=== PATIENT | male | born 1955 | race Caucasian/White ===

== ENCOUNTER 2018-04-20 12:45 | Observation (INO) | payer OTHER ==
--- OUTSIDE RECORDS SUMMARY | 2018-04-20 12:47 | XMS REPORT | Continuity of Care Document ---
:1955 Author Organization Interface Problems Problem Status Onset Date Classification Date Comments Source Reported Medications Medication Details Route Status Patient Ordering Order Source Instructions Provider Date Allergies, Adverse Reactions, Alerts Substance Category Reaction Severity Reaction Status Date Comments Source type Reported Immunizations Immunization Date Given Site Status Last Updated Comments Source Results Order Results Value Reference Date Interpretation Comments Source Name Range Vital Signs Vital Sign Value Date Comments Source Encounters Location Location Encounter Encounter Reason Attending ADM DC Status Source Details Type Number For Provider Date Date Visit Outpatient [id number] [place] 03[place]20 [facility] [place] Outpatient [id number] [place] 03[place]19 [facility] [place] Procedures Procedure Code Date Perfomer Comments Source
--- OUTSIDE RECORDS SUMMARY | 2018-04-20 12:47 | XMS REPORT ---
:1955 Author Organization eClinicalWorks Care Team Providers Name Role Phone Alford, Na Provider Role Unavailable Allergies, Adverse Reactions, Alerts Substance Reaction Event Type N.K.D.A. 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 Active Assessment Hypertension I10 Active Problem Hypertension I10 Active Problem Obesity E66.9 Active Problem Allergic rhinitis J30.9 Active Problem Obstructive sleep apnea G47.33 Active Problem Erectile dysfunction, unspecified N52.9 Active erectile dysfunction type Problem Anxiety F41.9 Active Problem Headache R51 Active Assessment Erectile dysfunction, unspecified N52.9 Active erectile dysfunction type Assessment Chest discomfort R07.89 Active Assessment Anxiety F41.9 Active Assessment Allergic rhinitis J30.9 Active Medications Medication Code Code Instructions Start End Status Dosage System Date Date Flomax [facility] [address]-95 0.4 MG Orally Active 1 capsule 30 Once a day minutes after the same meal each day Fluticasone [facility] 25809812664 50 MCG/ACT Active 1 spray in Propionate Nasally Once a each nostril day Cyclobenzaprine ND 97625463216 10 MG Orally Active 1 tablet as HCl Three times a needed day Triamcinolone ND 31349372140 0.5 % Active 1 application Acetonide Externally to affected Twice a day area Singulair ND 88050644918 10 MG Active TAKE 1 TABLET BY MOUTH EVERY DAY Claritin ND 07032175826 10 MG Orally Active 1 tablet Once a day Propranolol HCl ND 37505444486 40 MG Active TAKE 1 TABLET BY MOUTH TWICE A DAY Tylenol # 3 NDC 0 30-500-15 MG Active 2 tablets as Orally every 6 needed hrs Results No Known Results Summary Purpose eClinicalWorks Submission
--- OUTSIDE RECORDS SUMMARY | 2018-04-20 12:47 | XMS REPORT ---
:1955 Author Organization eClinicalWorks Care Team Providers Name Role Phone Alford, Na Provider Role Unavailable Allergies, Adverse Reactions, Alerts Substance Reaction Event Type N.K.D.A. 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 Active Problem Hypertension I10 Active Problem Obesity E66.9 Active Problem Allergic rhinitis J30.9 Active Problem Obstructive sleep apnea G47.33 Active Problem Erectile dysfunction, unspecified N52.9 Active erectile dysfunction type Problem Anxiety F41.9 Active Problem Headache R51 Active Assessment Erectile dysfunction, unspecified N52.9 Active erectile dysfunction type Assessment Anxiety F41.9 Active Assessment Allergic rhinitis J30.9 Active Assessment Hypertension I10 Active Medications Medication Code Code Instructions Start End Status Dosage System Date Date Claritin [facility] [place] 27039275956 10 MG Orally Active 1 tablet Once a day Cyclobenzaprine ND 73063933856 10 MG Orally Active 1 tablet as HCl Three times a needed day Singulair [facility] [place] 48826675402 10 MG Active TAKE 1 TABLET BY MOUTH EVERY DAY Fluticasone [facility] [place] 31818595445 50 MCG/ACT Active 1 spray in Propionate Nasally Once a each nostril day Flomax ND 44566738465 0.4 MG Orally Active 1 capsule 30 Once a day minutes after the same meal each day Propranolol HCl ND 51599250496 40 MG Active TAKE 1 TABLET BY MOUTH TWICE A DAY Tylenol # 3 NDC 0 30-500-15 MG Active 2 tablets as Orally every 6 needed hrs Triamcinolone ND 91458107227 0.5 % Active 1 application Acetonide Externally to affected Twice a day area Results No Known Results Summary Purpose eClinicalWorks Submission
--- OUTSIDE RECORDS SUMMARY | 2018-04-20 12:47 | XMS REPORT ---
:1955 Author Organization eClinicalWorks Care Team Providers Name Role Phone Alford, Na Provider Role Unavailable Allergies No Known Allergies Problems Problem Type Condition Code Onset Dates Condition Status Problem COPD, mild J44.9 Active Problem Hypertension I10 Active Problem Obesity E66.9 Active Problem Allergic rhinitis J30.9 Active Problem Obstructive sleep apnea G47.33 Active Problem Erectile dysfunction, unspecified N52.9 Active erectile dysfunction type Problem Anxiety F41.9 Active Problem Headache R51 Active Medications Medication Code Code Instructions Start End Status Dosage System Date Date Propranolol HCl [facility] 31739987767 40 MG Orally Active TAKE 1 twice a day TABLET BY MOUTH TWICE A DAY Results No Known Results Summary Purpose eClinicalWorks Submission
--- NOTE | 2018-04-20 14:00 | EKG ---
Test Date: 2018-04-20 Test Time: 12:51:59 Customer Support Technician: KANA MEASUREMENT RESULTS: Intervals: Rate: 86 RI: 152 QRSD: 90 QT: 364 QTc: 435 Pollock: P: 40 RI: 152 QRS: 32 T: 47 INTERPRETIVE STATEMENTS: Normal sinus rhythm Normal ECG Compared to ECG 08/01/2017 21:53:38 No significant changes Electronically Signed On 04-20-18 13:59:56 SENIOR ACCOUNT MANAGER by Wilfred Stovall
--- NOTE | 2018-04-20 14:08 | RAD REPORT ---
EXAM DESCRIPTION: May Single View04/20/2018 2:02 pm CLINICAL HISTORY: Chest pain COMPARISON: July 2017 FINDINGS: The lungs appear clear of acute infiltrate. The heart is normal size IMPRESSION: No acute abnormalities displayed
[2018-04-20 14:15] LABS: Absolute Lymphocytes (CBC) 1.1 K/uL (0.7-4.9); Absolute Monocytes 1.1 K/uL (0.1-1.3); Absolute Neutrophil 10.3 K/uL (1.8-8.0); Basophils % 0.5 % (0-1.3); Hematocrit 43.7 % (39.6-49.0); Lymphocytes % 8.6 % (15.3-44.8); MCH 32.8 pg (27.0-35.0); MCV 95.4 fL (80-100); MPV 8.7 fL (7.6-11.3); Monocytes % 8.8 % (3.3-12.3); RBC Red Blood Cell Count 4.58 M/uL (4.33-5.43)
[2018-04-20 14:24] LABS: Protime INR 1.16
[2018-04-20 14:40] LABS: ALT/SGPT 39 U/L (12-78); AST/SGOT 22 U/L (15-37); Albumin 3.8 g/dL (3.4-5.0); Alkaline Phosphatase 111 U/L (45-117); BUN Blood Urea Nitrogen 16 mg/dL (7-18); Bicarbonate 22 mmol/L (21-32); Bilirubin Total 0.7 mg/dL (0.2-1.0); Glucose Level 102 mg/dL (74-106); Magnesium 2.2 mg/dL (1.8-2.4); NT PRO-BNP 108 pg/mL (<125); Protein, Total 7.6 g/dL (6.4-8.2); Sodium Level 142 mmol/L (136-145); Troponin (Emerg Dept Use Only) < 0.02 ng/mL (0.0-0.045)
[2018-04-20] MEDS ORDERED: METOCLOPRAMIDE 10 MG/2mL INJ ONE (14:45)
[2018-04-20] MEDS ORDERED: DIPHENHYDRAMINE 50 MG/ML VIAL ONE (14:46)
[2018-04-20 16:52] LABS: Urine Blood NEGATIVE (NEG); Urine Glucose NEGATIVE (NEG); Urine Protein NEGATIVE (NEG); Urine pH 5.5 (5.0-7.0)
--- NOTE | 2018-04-20 17:05 | ER ---
Nurse's Notes [facility] Name: Winston Garcia Age: 62 yrs Sex: Male : 1955 Arrival Date: 04/20/2018 Time: 12:45 Bed 14 Private MD: Sanjana Alford Diagnosis: Chest pain, unspecified Presentation: 04/20 12:57 Presenting complaint: Patient states: headaches, shortness of breath and fatigue that ss began yesterday, CP that began today. Denies fever. Transition of care: patient was not received from another setting of care. Onset of symptoms was April 19, 2018. Risk Assessment: Do you want to hurt yourself or someone else? Patient reports no desire to harm self or others. Initial Sepsis Screen: Does the patient meet any 2 criteria? RR > 20 per min. Does the patient have a suspected source of infection? No. Patient's initial sepsis screen is negative. Care prior to arrival: None. 12:57 Method Of Arrival: Ambulatory ss 12:57 Acuity: LOBITO 3 ss Historical: - Allergies: 13:00 No Known Allergies; ss - PMHx: 13:00 Hypertension; brain aneurysm; ss - PSHx: 13:00 cyst removed from top of head; BRAIN SX FOR ANEURYSM; back; ss - Immunization history:: Adult Immunizations up to date. - Social history:: Smoking status: Patient/guardian denies using tobacco, but has a distant history of tobacco abuse. - Ebola Screening: : Patient denies exposure to infectious person Patient denies travel to an Ebola-affected area in the 21 days before illness onset. Screenin:11 Abuse screen: Denies threats or abuse. Denies injuries from another. Nutritional sg screening: No deficits noted. Tuberculosis screening: Never had TB. Fall Risk None identified. Assessment: 13:08 Reassessment: Patient appears in no apparent distress at this time. General: Appears in sg no apparent distress. obese, unkempt, well developed, well nourished, Behavior is calm, cooperative, appropriate for age. Pain: Complains of pain in chest Pain currently is 6 out of 10 on a pain scale. at worst was 10 out of 10 on a pain scale. Neuro: Level of Consciousness is awake, alert, obeys commands, Oriented to person, place, time, situation, Rad Tech are equal bilaterally Speech is normal, Facial symmetry appears normal. Cardiovascular: Chest pain is described as vague, quality is pressure, is located in anterior chest wall. Respiratory: Airway is patent Respiratory effort is even, unlabored, Respiratory pattern is regular, symmetrical, Breath sounds are coarse. Respiratory: Reports cough that is. GI: Abdomen is round non-distended, obese, Bowel sounds present X 4 quads. : No signs and/or symptoms were reported regarding the genitourinary system. EENT: No deficits noted. Derm: Skin is pink, warm \T\ dry. Musculoskeletal: No signs and/or symptoms reported regarding the musculoskeletal system. 14:08 Reassessment: Patient appears in no apparent distress at this time. Patient and/or sg family updated on plan of care and expected duration. Pain level reassessed. Patient is alert, oriented x 3, equal unlabored respirations, skin warm/dry/pink. pt reports a headache at this time, that is aching and a 6/10. 14:45 Reassessment: Patient appears in no apparent distress at this time. Patient and/or sg family updated on plan of care and expected duration. Pain level reassessed. Patient is alert, oriented x 3, equal unlabored respirations, skin warm/dry/pink. 15:40 Reassessment: pt educated that a urine specimen has been ordered, a urinal has been ss provided, awaiting a urine specimen at this time. 16:40 Reassessment: Patient appears in no apparent distress at this time. Patient and/or sg family updated on plan of care and expected duration. Pain level reassessed. Patient is alert, oriented x 3, equal unlabored respirations, skin warm/dry/pink. reports CP that is a 6/10 notified. 17:29 Reassessment: Patient appears in no apparent distress at this time. Patient and/or sg family updated on plan of care and expected duration. Pain level reassessed. Patient is alert, oriented x 3, equal unlabored respirations, skin warm/dry/pink. Patient states symptoms have improved. Vital Signs: 13:00 BP 132 / 87; Pulse 88; Resp 23; Pulse Ox 96% on R/A; Weight 140.61 kg; Height 6 ft. 3 ss in. (190.50 cm); Pain 3/10; 13:00 Temp 98.8(O); ss 14:00 BP 130 / 77; Pulse 78; Resp 22 S; Pulse Ox 99% on R/A; Pain 3/10; sg 15:11 BP 123 / 72; Pulse 76 MON; Resp 20; Pulse Ox 97% on R/A; Pain 3/10; sg 16:24 BP 119 / 77; Pulse 72; Resp 22; Pulse Ox 100% on R/A; sg 17:42 BP 106 / 54; Pulse 80; Resp 21; Temp 98.6; Pulse Ox 98% on R/A; Pain 3/10; sg 13:00 Body Mass Index 38.75 (140.61 kg, 190.50 cm) ss 15:11 Sinus Rhythm sg ED Course: 12:45 Patient arrived in ED. as 12:46 Sanjana Alford MD is Private Physician. as 12:54 EKG done, by kennel technician. reviewed by Kaiser Dorado MD. at1 12:55 Kaiser Dorado MD is Attending Physician. ps1 13:00 Triage completed. ss 13:00 Arm band placed on right wrist. ss 13:07 Bronson White, RN is Primary Nurse. sg 13:08 No provider procedures requiring assistance completed. Patient maintains SpO2 sg saturation greater than 95% on room air. 13:10 Patient has correct armband on for positive identification. Bed in low position. Call sg light in reach. Side rails up X2. phototypesetting equipment monitor on. Pulse ox on. NIBP on. Warm blanket given. Head of bed elevated. 14:02 X-ray completed. Portable x-ray completed in exam room. Patient tolerated procedure jb2 well. 14:03 XRAY Chest (1 view) In Process Unspecified. EDMS 17:04 Joceline Hyman MD is Hospitalizing Provider. ps1 18:03 Patient admitted, IV remains in place. intact, No redness/swelling at site. ss Administered Medications: 14:45 Drug: Reglan 10 mg Route: IVP; Site: right antecubital; sg 15:40 Follow up: Response: No adverse reaction sg 14:45 Drug: Benadryl 50 mg Route: IVP; Site: right antecubital; sg 17:21 Follow up: Response: No adverse reaction sg Outcome: 17:04 Decision to Hospitalize by Provider. ps1 18:03 Admitted to Tele accompanied by tech, via stretcher, room 207, with chart, Report sg called to Dakota Roa 18:03 Condition: stable 18:03 Instructed on the need for admit, safety practices, Demonstrated understanding of instructions. 18:15 Patient left the ED. sg Signatures: Dispatcher [employer] EDBronson Emanuel RN RN Bryon Curtis Amelia as Smirch, Shelby, RN RN Fabienne Roberts, cap parts cutter EKG Tat1 Kaiser Dorado MD MD ps1 Corrections: (The following items were deleted from the chart) 14:30 13:10 Pulse Ox 98.8%; anum
--- NOTE | 2018-04-20 17:05 | EDPHYS ---
Physician Documentation [facility] Name: Winston Garcia Age: 62 yrs Sex: Male : 1955 Arrival Date: 04/20/2018 Time: 12:45 Bed 14 Private MD: Sanjana Alford ED Physician Kaiser Dorado HPI: 04/20 14:27 This 62 yrs old Male presents to ER via Ambulatory with complaints of Chest ps1 Pain. 14:27 patient presenting with flu like symptoms and chest pain. Onset was yesterday and worse ps1 this morning. Associated with headache described as throbbing. Has a history of migraines as well as an aneurysm. Had CT angio a couple of weeks ago and was normal. No FND. Previous cardiac workup by lolita Stovall. . Historical: - Allergies: 13:00 No Known Allergies; ss - PMHx: 13:00 Hypertension; brain aneurysm; ss - PSHx: 13:00 cyst removed from top of head; BRAIN SX FOR ANEURYSM; back; ss - Immunization history:: Adult Immunizations up to date. - Social history:: Smoking status: Patient/guardian denies using tobacco, but has a distant history of tobacco abuse. - Ebola Screening: : Patient denies exposure to infectious person Patient denies travel to an Ebola-affected area in the 21 days before illness onset. ROS: 14:27 Eyes: Negative for injury, pain, redness, and discharge, ENT: Negative for injury, ps1 pain, and discharge, Respiratory: Negative for shortness of breath, cough, wheezing, and pleuritic chest pain, Abdomen/GI: Negative for abdominal pain, nausea, vomiting, diarrhea, and constipation, MS/Extremity: Negative for injury and deformity, Skin: Negative for injury, rash, and discoloration. 14:27 Constitutional: Positive for body aches, chills, fatigue. 14:27 Cardiovascular: Positive for chest pain. 14:27 Neuro: Positive for headache. Exam: 14:27 Constitutional: This is a well developed, well nourished patient who is awake, alert, ps1 and in no acute distress. Head/Face: Normocephalic, atraumatic. Eyes: Pupils equal round and reactive to light, extra-ocular motions intact. Lids and lashes normal. Conjunctiva and sclera are non-icteric and not injected. Chest/axilla: Normal chest wall appearance and motion. Nontender with no deformity. No lesions are appreciated. Cardiovascular: Regular rate and rhythm. No gallops, murmurs, or rubs. Normal PMI, no JVD. No pulse deficits. Respiratory: Lungs have equal breath sounds bilaterally, clear to auscultation and percussion. No rales, rhonchi or wheezes noted. No increased work of breathing, no retractions or nasal flaring. Abdomen/GI: Soft, non-tender, with normal bowel sounds. No distension or tympany. No guarding or rebound. No evidence of tenderness throughout. MS/ Extremity: Pulses equal, no cyanosis. Neurovascular intact. Full, normal range of motion. Neuro: Awake and alert, GCS 15, oriented to person, place, time, and situation. Cranial nerves II-XII grossly intact. Sensory grossly intact. Vital Signs: 13:00 BP 132 / 87; Pulse 88; Resp 23; Pulse Ox 96% on R/A; Weight 140.61 kg; Height 6 ft. 3 ss in. (190.50 cm); Pain 3/10; 13:00 Temp 98.8(O); ss 14:00 BP 130 / 77; Pulse 78; Resp 22 S; Pulse Ox 99% on R/A; Pain 3/10; sg 15:11 BP 123 / 72; Pulse 76 MON; Resp 20; Pulse Ox 97% on R/A; Pain 3/10; sg 16:24 BP 119 / 77; Pulse 72; Resp 22; Pulse Ox 100% on R/A; sg 17:42 BP 106 / 54; Pulse 80; Resp 21; Temp 98.6; Pulse Ox 98% on R/A; Pain 3/10; sg 13:00 Body Mass Index 38.75 (140.61 kg, 190.50 cm) ss 15:11 Sinus Rhythm sg MDM: 13:53 Patient medically screened. ps1 04/21 17:05 Data reviewed: vital signs, nurses notes, lab test result(s), and as a result, I will ps1 admit patient. 04/20 13:39 Order name: CBC with Diff; Complete Time: 14:25 ps1 04/20 13:39 Order name: Magnesium; Complete Time: 14:45 ps1 04/20 13:39 Order name: NT PRO-BNP; Complete Time: 14:45 ps1 04/20 13:39 Order name: PT-INR; Complete Time: 14:45 ps1 04/20 13:39 Order name: Troponin (emerg Dept Use Only); Complete Time: 14:45 ps1 04/20 13:39 Order name: CMP; Complete Time: 14:45 ps1 04/20 12:57 Order name: EKG; Complete Time: 12:57 ss 04/20 12:57 Order name: EKG - Nurse/Tech; Complete Time: 12:57 ss 04/20 13:39 Order name: XRAY Chest (1 view); Complete Time: 14:14 ps1 04/20 13:39 Order name: Flu; Complete Time: 14:45 ps1 04/20 16:48 Order name: Urine Dipstick--Ancillary (enter results); Complete Time: 16:53 04/20 17:28 Order name: Diet Heart Healthy; Complete Time: 17:28 sg 04/20 13:39 Order name: Cardiac monitoring; Complete Time: 13:40 ps1 04/20 13:39 Order name: IV Saline Lock; Complete Time: 13:40 [facility] 04/20 13:39 Order name: Labs collected and sent; Complete Time: 13:40 ps1 04/20 13:39 Order name: O2 Per Protocol; Complete Time: 13:40 ps1 04/20 13:39 Order name: O2 Sat Monitoring; Complete Time: 13:40 [facility] 04/20 15:24 Order name: Urine Dipstick-Ancillary (obtain specimen); Complete Time: 17:21 ps1 Administered Medications: 04/20 14:45 Drug: Reglan 10 mg Route: IVP; Site: right antecubital; sg 15:40 Follow up: Response: No adverse reaction sg 14:45 Drug: Benadryl 50 mg Route: IVP; Site: right antecubital; sg 17:21 Follow up: Response: No adverse reaction sg Disposition: 04/20/18 17:04 Hospitalization ordered by Joceline Hyman for Observation. Preliminary diagnosis is Chest pain, unspecified. - Bed requested for Telemetry/MedSurg (observation). - Status is Observation. sg - Condition is Stable. - Problem is new. - Symptoms are unchanged. UTI on Admission? No Signatures: Dispatcher [employer] Manuela Perez RN RN dw Gay, Steven, RN RN sg Smirch, Shelby, RN RN ss Kaiser Dorado MD MD ps1 Corrections: (The following items were deleted from the chart) 17:48 17:04 Hospitalization Ordered by Joceline Hyman MD for Observation. Preliminary dw diagnosis is Chest pain, unspecified. Bed requested for Telemetry/MedSurg (observation). Status is Observation. Condition is Stable. Problem is new. Symptoms are unchanged. UTI on Admission? No. ps1 18:15 17:48 04/20/2018 17:04 Hospitalization Ordered by Joceline Hyman MD for Observation. sg Preliminary diagnosis is Chest pain, unspecified. Bed requested for Telemetry/MedSurg (observation). Status is Observation. Condition is Stable. Problem is new. Symptoms are unchanged. UTI on Admission? No. dw
[2018-04-20] MEDS ORDERED: HYDROCODONE/APAP 7.5/325 MG TAB ONE (18:31)
[2018-04-20] MEDS ORDERED: ONDANSETRON 4 MG (ODT) TAB PO PRN (18:36)
[2018-04-20] MEDS: ACETAMINOPHEN 500 MG TAB PO PRN (18:53)
[2018-04-20] MEDS: NA CHLORIDE 0.9% 1,000 ML IV SCH (18:54)
[2018-04-20 18:55] VITALS: BMI 38.0
--- NOTE | 2018-04-20 19:55 | P.HP ---
Certification for Inpatient Patient admitted to: Observation With expected LOS: <2 Midnights Practitioner: I am a practitioner with admitting privileges, knowledge of patient current condition, hospital course, and medical plan of care. Services: Services provided to patient in accordance with Admission requirements found in Title 42 Section 412.3 of the Code of Federal Regulations Patient History Date of Service: 04/20/18 Reason for admission: Flu-like symptoms History of Present Illness: Mr. Garcia is a 62-year-old male with history of brain aneurysm, hypertension, obesity, who start yesterday with fatigue, headache, shortness of breath. He was also complaining of chest pain, on and off, getting worse with movement. He denied any fever, nausea, vomiting or diarrhea. He feels stuffy nose and sore throat but has not had cough. Chest-x-ray is unremarkable, lab work shows leukocytosis 12.7 K, influenza screen is negative. At arrival the patient was afebrile, however during his stay in the hospital his temp rise to 101.1 F. Allergies No Known Drug Allergies Allergy (Verified 05/15/15 12:37) Unknown No Allergy (Uncoded 08/02/17 01:47) Unknown Home medications list reviewed: Yes Home Medications: Propranolol [Inderal*] 40 mg PO BID 05/15/15 Esomeprazole Magnesium 40 mg PO [id number] 08/02/17 Montelukast Sodium 10 mg PO DAILY 08/02/17 Tamsulosin HCl 0.4 mg PO DAILY 08/02/17 Topiramate 50 mg PO BID 6AM 6PM 08/02/17 Albuterol Sulfate [Proair Hfa] 8.5 gm IH Q6HR #1 [email or web address].[email or web address] 08/04/17 - Past Medical/Surgical History Diabetic: No -: HTN -: BRAIN ANUERYSMS -: CYST REMOVED FROM TOP OF HEAD -: BRAIN SURGERY FOR ANEURYSMS - Family History Mother -: Cancer Notes: BREAST CANCER - Social History Smoking Status: Former smoker Alcohol use: Yes CD- Drugs: No Caffeine use: Yes Place of Residence: Home Review of Systems 10-point ROS is otherwise unremarkable Physical Examination - Vital Signs Temperature: 101.1 F Blood Pressure: 126/76 Pulse: 98 Respirations: 20 Pulse Ox (%): 97 - Physical Exam General: Alert, In no apparent distress HEENT: Atraumatic, PERRLA, Other (Mucouse membrane erythematous), EOMI, Sclerae nonicteric Neck: Supple, 2+ carotid pulse no bruit, No LAD, Without JVD or thyroid abnormality Respiratory: Clear to auscultation bilaterally, Normal air movement Cardiovascular: Regular rate/rhythm, Normal S1 S2 Gastrointestinal: Normal bowel sounds, No tenderness Musculoskeletal: No tenderness Integumentary: No rashes Neurological: Normal speech, Normal strength at 5/5 x4 extr, Normal tone, Normal affect Lymphatics: No axilla or inguinal lymphadenopathy - Studies Laboratory Data (last 24 hrs) 04/20/18 13:40: PT 13.7 H, INR 1.16 04/20/18 13:40: Sodium 142, Potassium 4.0, BUN 16, Creatinine 1.30, Glucose 102 , Magnesium 2.2, Total Bilirubin 0.7, AST 22, ALT 39, Alkaline Phosphatase 111 04/20/18 13:40: WBC 12.7 H, Hgb 15.0, Hct 43.7, Plt Count 230 Microbiology Data (last 24 hrs): 04/20/18 13:40 Nasopharnyx Influenza Type A Antigen Screen - Final 04/20/18 13:40 Nasopharnyx Influenza Type B Antigen Screen - Final Assessment and Plan - Problems (Diagnosis) (1) Headache Current Visit: Yes Status: Acute Qualifiers: Headache type: unspecified Headache chronicity pattern: acute headache Intractability: not intractable Qualified Code(s): R51 - Headache (2) Upper respiratory infection Current Visit: Yes Status: Acute Qualifiers: URI type: unspecified viral URI Qualified Code(s): J06.9 - Acute upper respiratory infection, unspecified (3) Chest pain Onset Date: 08/04/17 Current Visit: No Status: Acute Qualifiers: Chest pain type: chest pain on breathing Qualified Code(s): R07.1 - Chest pain on breathing; R07.81 - Pleurodynia - Plan The patient will be admitted to the hospital due to flu-like symptoms and chest pain. This may be due to an upper respiratory infection. Chest-x-ray is negative, he is febrile with mild leukocytosis. EKG shows no acute ST-T abnormalities, troponin I is negative Will order blood cultures, lactate, procalcitonin. We watch very close to evaluate progress of his symptoms. Serial EKG and troponin I. - Advance Directives Does patient have a Living Will: No Does patient have a Durable POA for Healthcare: No - Code Status/Comfort Care Code Status Assessed: Yes Code Status: Full Code
[2018-04-20] MEDS ORDERED: SUMATRIPTAN SUCCI 50 MG TAB PO ONE (23:35)
[2018-04-21 03:16] LABS: Absolute Lymphocytes (CBC) 1.4 K/uL (0.7-4.9); Absolute Monocytes 0.9 K/uL (0.1-1.3); Absolute Neutrophil 7.5 K/uL (1.8-8.0); Basophils % 0.8 % (0-1.3); Eosinophils % 0.1 % (0-4.4); Hematocrit 41.1 % (39.6-49.0); Lymphocytes % 14.2 % (15.3-44.8); MCH 33.2 pg (27.0-35.0); MCV 95.8 fL (80-100); MPV 8.6 fL (7.6-11.3); Monocytes % 8.9 % (3.3-12.3); RBC Red Blood Cell Count 4.29 M/uL (4.33-5.43)
[2018-04-21 03:27] LABS: Albumin 3.4 g/dL (3.4-5.0); Bilirubin Total 0.9 mg/dL (0.2-1.0); Potassium 3.6 mmol/L (3.5-5.1)
[2018-04-21] MEDS: NA CHLORIDE 0.9% 1,000 ML IV SCH ×2 (04:52→18:13)
[2018-04-21 04:59] LABS: Phosphorus 4.7 mg/dL (2.5-4.9)
[2018-04-21] MEDS ORDERED: POTASSIUM CL SA 10 MEQ TAB PO ONE (05:25)
[2018-04-21] MEDS ORDERED: SUMATRIPTAN SUCCI 50 MG TAB PO ONE ×2 (06:01→22:03)
[2018-04-21] MEDS: ACETAMINOPHEN 500 MG TAB PO PRN ×2 (11:59→18:36)
--- NOTE | 2018-04-21 13:33 | RAD REPORT ---
EXAM DESCRIPTION: MRI - Brain W/Wo Cont - 04/21/2018 1:17 pm CLINICAL HISTORY: headaches for more than 24 hours COMPARISON: MRA Head Wo Cont dated 04/21/2018; Head Brain W/Wo Con dated 04/09/2018; MRA Neck Without Cont dated 04/21/2018 TECHNIQUE: Multi-sequence, multiplanar MR imaging of the brain was performed with contrast. FINDINGS: No intracranial hemorrhage, hydrocephalus, extra-axial fluid collection or acute infarctio n.Blooming artifact is seen in the region of the sella related to aneurysm clipping. Mild gliosis in the left temporal lobe is likely also related to this clipping procedure. No edema or shift of midlin e structures. No intracranial mass. DWI is negative for acute CVA. The midline structures are normally formed. Mastoid air cells and paranasal sinuses are clear. Post-contrast images show no abnormal enhancement to suggest tumor or infection. IMPRESSION: No acute or worrisome intracranial abnormalities. Blooming artifact and gliosis is evident from prior aneurysm clipping procedure.
--- NOTE | 2018-04-21 13:37 | RAD REPORT ---
EXAM DESCRIPTION: MRI - MRA Head Wo Cont - 04/21/2018 1:17 pm CLINICAL HISTORY: headache more than 24 hours CVA COMPARISON: Head Brain W/Wo Con dated 04/09/2018 FINDINGS: 3D noncontrast [id number] MR angiography of the eyak of Fabian was performed. No aneurysm, flow-limiting stenosis or vascular malformation is seen. Mild blooming artifact from ane urysm clips is noted along the anterior communicating artery region, limiting assessment in this loca tion. Forward flow is seen in right-sided dominant vertebral artery. The visualized dural venous sinuses appear patent. IMPRESSION: No significant flow abnormality of the eyak of Fabian is identified. Aneurysm clips ar e present in the region of the anterior communicating artery, limiting assessment in this region.
--- NOTE | 2018-04-21 13:39 | RAD REPORT ---
EXAM DESCRIPTION: MRI - MRA Neck Without Cont - 04/21/2018 1:17 pm CLINICAL HISTORY: headaches for more than 24 hours COMPARISON: No comparisons FINDINGS: Contrast enhance 2D [id number] MR angiography of the neck vessels was performed. No significant carotid stenosis is identified bilaterally. Forward flow seen in both vertebral arteri es, with right-sided dominant vertebral artery present. IMPRESSION: No significant flow abnormality of the neck vessels.
--- NOTE | 2018-04-21 14:34 | P.PN ---
Subjective Date of Service: 04/21/18 Chief Complaint: Flu-like symptoms Pt seen and examined at bedside with RN. Chart Reviewed. Case DW with patient at bedside. Pt is complaining of worst CRUMP of his life and states he does have Chronic CRUMP but this is worse then before. He has also been having discomfort with Light and On and off Fever. Review of Systems 10-point ROS is otherwise unremarkable Physical Examination - Vital Signs Temperature: 98.5 F Blood Pressure: 128/71 Pulse: 92 Respirations: 18 Pulse Ox (%): 95 - Physical Exam General: Alert, In no apparent distress HEENT: Atraumatic, PERRLA, EOMI Neck: Supple, JVD not distended Respiratory: Clear to auscultation bilaterally, Normal air movement Cardiovascular: Regular rate/rhythm, Normal S1 S2 Gastrointestinal: Normal bowel sounds, No tenderness Musculoskeletal: No tenderness Integumentary: No rashes Neurological: Normal speech, Normal tone, Normal affect Lymphatics: No axilla or inguinal lymphadenopathy - Studies Laboratory Data (last 24 hrs) 04/20/18 13:40: Sodium 142, Potassium 4.0, BUN 16, Creatinine 1.30, Glucose 102 , Magnesium 2.2, Total Bilirubin 0.7, AST 22, ALT 39, Alkaline Phosphatase 111 Microbiology Data (last 24 hrs): 04/20/18 13:40 Nasopharnyx Influenza Type A Antigen Screen - Final 04/20/18 13:40 Nasopharnyx Influenza Type B Antigen Screen - Final Medications List Reviewed: Yes Assessment And Plan - Current Problems (Diagnosis) (1) Chest pain Onset Date: 04/21/18 Current Visit: Yes Status: Acute Plan: Chest On Breathing Most Likely 2.2 to URI -Currently resolved per patient -No further Workup needed Qualifiers: Chest pain type: chest pain on breathing Qualified Code(s): R07.1 - Chest pain on breathing; R07.81 - Pleurodynia (2) Headache Onset Date: 04/21/18 Current Visit: Yes Status: Acute Plan: Acute CRUMP with Photophobia -DDX of Encephalitis vs menigitis -LP ordered -MRI/MRA pending as well -H/o brain anuerysm Qualifiers: Headache type: unspecified Headache chronicity pattern: acute headache Intractability: not intractable Qualified Code(s): R51 - Headache (3) HTN (hypertension) Onset Date: 08/04/17 Current Visit: No Status: Chronic Qualifiers: Hypertension type: essential hypertension Qualified Code(s): I10 - Essential (primary) hypertension Discharge Plan: Home Plan to discharge in: 48 Hours - Code Status/Comfort Care Code Status Assessed: Yes Critical Care: No
--- NOTE | 2018-04-21 15:24 | RAD REPORT ---
EXAM DESCRIPTION: RAD - Lumbar Puncture For Dx - 04/21/2018 3:17 pm CLINICAL HISTORY: headache and stiff neck COMPARISON: LUMBAR SPINE 3 VIEWS dated 01/20/2009; LUMBAR SPINE 3 VIEWS dated 12/05/2008; LSPINE WITH BENDING VIEWS dated 08/26/2008; LUMBAR SPINE 3 VIEWS dated 07/17/2008 TECHNIQUE: The procedure, risks and alternatives to the procedure were discussed with the patient in detail. After answering all questions, both oral and written consent were obtained. Time-out procedu re was performed. The patient was placed in an oblique prone position on the fluoroscopic table. The skin of the lower back was prepped and draped in the usual sterile fashion. After anesthetizing the skin and deeper sof t tissues with 1% lidocaine, a 22 gauge needle was advanced into the thecal sac at the L3-4 level. 15 cc of CSF were obtained. Initial CSF was blood-tinged however it cleared with time. At the conclusion of the procedure the needle was withdrawn and a sterile bandage placed over the pun cture site. The patient tolerated the procedure well without immediate complications. Total fluoro time: 2.8 minutes Images obtained: 2 IMPRESSION: Successful fluoroscopic guided lumbar puncture. All obtained fluid was sent to the lab f or studies requested by the referring physician.
[2018-04-21 16:05] LABS: CSF Glucose 68 mg/dL (40-70)
[2018-04-21 16:40] LABS: Appearance CLEAR (CLEAR); Body Fluid Source CSF; Body Fluid WBC 2 /mm^3; Color of fluid Colorless (COLORLESS); Fluid Total Volume 15.5 ml
[2018-04-21] MEDS ORDERED: ALBUTEROL INHALER 60 PUFF/8 GM IH SCH (18:00)
[2018-04-21] MEDS: PROPRANOLOL HCL 40 MG TAB PO SCH (20:54)
[2018-04-21] MEDS: TOPIRAMATE 100 MG TAB PO SCH (20:54)
[2018-04-21] MEDS ORDERED: TOPIRAMATE 100 MG PO SCH (21:00)
[2018-04-22] MEDS: NA CHLORIDE 0.9% 1,000 ML IV SCH ×2 (01:56→10:37)
[2018-04-22] MEDS ORDERED: MONTELUKAST 10 MG TAB PO SCH (09:00)
[2018-04-22] MEDS ORDERED: FLUTICASONE 50MCG NASAL SPRAY NAS SCH (09:00)
[2018-04-22] MEDS ORDERED: TAMSULOSIN 0.4 MG SR CAP PO SCH (09:00)
[2018-04-22] MEDS: TOPIRAMATE 100 MG TAB PO SCH (09:32)
[2018-04-22] MEDS: PROPRANOLOL HCL 40 MG TAB PO SCH (09:33)
[2018-04-22 09:44] VITALS: O2SAT 95
[2018-04-22 13:08] VITALS: BP 139/87; TEMP 97.8
--- NOTE | 2018-04-22 16:45 | P.DS ---
Admission Date: 04/20/18 Discharge Date: 04/22/18 Disposition: ROUTINE DISCHARGE Discharge Condition: GOOD Reason for Admission: Flu-like symptoms - Problems (1) Chest pain Onset Date: 04/21/18 Status: Acute Qualifiers: Chest pain type: chest pain on breathing Qualified Code(s): R07.1 - Chest pain on breathing; R07.81 - Pleurodynia (2) Headache Onset Date: 04/21/18 Status: Acute Qualifiers: Headache type: unspecified Headache chronicity pattern: acute headache Intractability: not intractable Qualified Code(s): R51 - Headache (3) HTN (hypertension) Onset Date: 08/04/17 Status: Chronic Qualifiers: Hypertension type: essential hypertension Qualified Code(s): I10 - Essential (primary) hypertension Brief History of Present Illness: Mr. Garcia is a 62-year-old male with history of brain aneurysm, hypertension, obesity, who start yesterday with fatigue, headache, shortness of breath. He was also complaining of chest pain, on and off, getting worse with movement. He denied any fever, nausea, vomiting or diarrhea. He feels stuffy nose and sore throat but has not had cough. Chest-x-ray is unremarkable, lab work shows leukocytosis 12.7 K, influenza screen is negative. At arrival the patient was afebrile, however during his stay in the hospital his temp rise to 101.1 F. Hospital Course: Overall during the hospital stay patient remained stable Patient was admitted to the hospital for chest pain ACS rule out. Was also found to have upper respiratory infection along with headaches. Patient is troponin and EKG was negative x2. Echocardiogram done here in the hospital was also within normal limits. No further referral was required for chest pain ACS rule out. For patient's headache patient had applied to history of brain aneurysm that was closed x2. LP was also done due to complaints of having photophobia and nuchal rigidity. LP brain MRI were negative with out any acute abnormality. Patient headache is most likely chronic in nature. Patient was asked to follow up with neurology which she does the patient anyways. Patient was told to continue taking his Topamax that he has been prescribed by his neurologist. Patient then was discharged home under stable condition. While here in the hospital patient ambulated well and was doing well overall without any complaints to offer this was discharged home under stable condition Vital Signs/Physical Exam: Temp Pulse Resp BP Pulse Ox 97.8 F 70 20 139/87 97 04/22/18 12:00 04/22/18 12:00 04/22/18 12:00 04/22/18 12:00 04/22/18 12:00 General: Alert, In no apparent distress HEENT: Atraumatic, PERRLA, EOMI Neck: Supple, JVD not distended Respiratory: Clear to auscultation bilaterally, Normal air movement Cardiovascular: Regular rate/rhythm, Normal S1 S2 Gastrointestinal: Normal bowel sounds, No tenderness Musculoskeletal: No tenderness Integumentary: No rashes Neurological: Normal speech, Normal tone, Normal affect Lymphatics: No axilla or inguinal lymphadenopathy Laboratory Data at Discharge: WBC 9.9 K/uL (4.3-10.9) D 04/21/18 02:49 Hgb 14.2 g/dL (13.6-17.9) 04/21/18 02:49 Hct 41.1 % (39.6-49.0) 04/21/18 02:49 Plt Count 195 K/uL (152-406) 04/21/18 02:49 PT 13.7 SECONDS (9.5-12.5) H 04/20/18 13:40 INR 1.16 04/20/18 13:40 Sodium 144 mmol/L (136-145) 04/22/18 03:47 Potassium 4.0 mmol/L (3.5-5.1) 04/22/18 03:47 BUN 12 mg/dL (7-18) 04/22/18 03:47 Creatinine 1.00 mg/dL (0.55-1.3) 04/22/18 03:47 Glucose 98 mg/dL (74-106) 04/22/18 03:47 Phosphorus 4.7 mg/dL (2.5-4.9) 04/21/18 02:49 Magnesium 2.2 mg/dL (1.8-2.4) 04/20/18 13:40 Total Bilirubin 0.9 mg/dL (0.2-1.0) 04/21/18 02:49 AST 16 U/L (15-37) 04/21/18 02:49 ALT 32 U/L (12-78) 04/21/18 02:49 Alkaline Phosphatase 94 U/L (45-117) 04/21/18 02:49 Troponin I < 0.02 ng/mL (0.0-0.045) 04/21/18 10:38 Home Medications: Propranolol [Inderal*] 40 mg PO BID 05/15/15 Montelukast Sodium 10 mg PO DAILY 08/02/17 Tamsulosin HCl 0.4 mg PO DAILY 08/02/17 Topiramate 100 mg PO BID 08/02/17 Albuterol Sulfate [Proair Hfa] 8.5 gm IH Q6HR #1 hfa.aer.ad 08/04/17 Fluticasone [Flonase 50MCG Nasal Sultana*] 1 spray BENJAMIN DAILY 04/20/18 Patient Discharge Instructions: Please f.u with PCP and Dr Carmona in 1 to 2 days post discharge Diet: Regular Activity: Ad jose Followup: Austen Carmona MD [ACTIVE - CAN ADMIT] - 1-2 Days (call to schedule an appointment) Sanjana Alford DO [Primary Care Provider] - 1-2 Days (call to schedule an appointment )
== END 2018-04-22 12:51 | disposition home or self-care (01) ==
LOC: ER 12:45 → 4TH 18:05
PROVIDERS: ADMIT Family Medicine; ATTEND Internal Medicine
PROC: 009U3ZX Drainage of Spinal Canal, Percutaneous Approach, Diagnostic (ICD-10-PCS; principal; 2018-04-21)
DX: J06.9 Acute upper respiratory infection, unspecified (principal); R51 Headache; R07.81 Pleurodynia; I10 Essential (primary) hypertension; E66.9 Obesity, unspecified; Z68.38 Body mass index [BMI] 38.0-38.9, adult
CPT/HCPCS: 36415 ×3; 62270; 70544; 70547; 70553; 71045; 77003; 80048; 80053 ×2; 81003; 82945; 83605; 83735; 83880; 84100; 84145; 84157; 84484 ×4; 85025 ×2; 85610; 87040 ×2; 87070; 87804 ×4; 89050; 93005; 96374; 96375; 99285; A9577; G0378 ×2; J2765; J7030 ×5

== ENCOUNTER 2018-12-03 12:34 | Emergency (ER) | payer OTHER ==
--- OUTSIDE RECORDS SUMMARY | 2018-12-03 12:37 | XMS REPORT | Continuity of Care Document ---
:1955 Author Organization [facility] Care Team Providers Name Role Phone [facility] Unavailable Unavailable Problems Problem Status Onset Classification Date Comments Source Date Reported Chronic headache Active 03/16/20 Problem 10/13/2018 [facility] Essential Active 09/17/19 Problem 10/13/2018 [facility] hypertension 15 Neuro Syncope and Active 09/17/19 Problem 10/13/2018 [facility] collapse 15 Neuro Subarachnoid Active Problem 10/13/2018 Data migrated [facility]. Medications Medication Details Route Status Patient Ordering Order Source Instructions Provider Date topiramate 100 mg 100 mg=1 No [facility] oral tablet tab, PO, Longer 018 Neuro BID, X 90 Active day, # 180 tab, 3 Refill(s) , Pharmacy: [facility]/pharm acy #[id number] topiramate 50 mg oral See No Mischer tablet Instructi Longer 018 Neuro ons, # Active 180 tab, Refill(s) 2, TAKE 1 TABLET BY MOUTH TWICE A DAY, Pharmacy: [facility]/pharm acy #[id number] Hydrochlorothiazide PO, Active [facility] Daily, 0 018 Neuro Refill(s) tramadol 50 mg=1 Active [facility] hydrochloride 50 MG tab, PO, 018 Neuro Oral Tablet Q4H, 0 Refill(s) Fluticasone 1 spray, Active [facility] propionate 0.05 NASAL, 018 Neuro MG/ACTUAT Metered Daily, 0 Dose Nasal [place] Refill(s) [Flonase] topiramate 50 MG Oral 50 mg=1 No [facility] Tablet [Topamax] tab, PO, Longer 018 Neuro BID, # 60 Active tab, 0 Refill(s) Allergies, Adverse Reactions, Alerts Substance Category Reaction Severity Reaction Status Date Comments Source type Reported No Known Assertion Drug [facility] Medication allergy Neuro Allergies Immunizations No Data Provided for This Section Results No Data Provided for This Section Pathology Reports No Data Provided for This Section Diagnostic Reports No Data Provided for This Section Consultation Notes No Data Provided for This Section Discharge Summaries No Data Provided for This Section History and Physicals No Data Provided for This Section Vital Signs Vital Sign Value Date Comments Source BMI Calculated 38.7 03/20/2018 [facility] Height 190.5 cm 03/20/2018 [facility] Weight 140.455 03/20/2018 [facility] Respitory Rate 16 03/20/2018 [facility] Heart Rate 60 03/20/2018 [facility] Systolic (mm Hg) 136 03/20/2018 [facility] Diastolic (mm Hg) 117 03/20/2018 [facility] Encounters Location Location Encounter Encounter Reason Attending ADM DC Status Source Details Type Number For Provider Date Date Visit Outpatient [id number] [place] 03/20 [facility] [id number] [place] 03/20 03/21 [facility]2017 [facility] [place] [facility] Outside [id number] 03/25 03/27 [facility]2017 [facility] [place] Records Outpatient [id number] [place] 03/19 [facility] Procedures No Data Provided for This Section Assessment and Plan No Data Provided for This Section Plan of Care No Data Provided for This Section Social History Social History Date Source Social History TypeResponse 03/20/2018 [facility] Smoking Status Never smoker; Exposure to Tobacco Smoke None; Cigarette Smoking Last 365 Days No; Reg Smoking Cessation Counseling No entered on: 03/20/18 Family History No Data Provided for This Section Advance Directives No Data Provided for This Section Functional Status No Data Provided for This Section
--- OUTSIDE RECORDS SUMMARY | 2018-12-03 12:37 | XMS REPORT | Summary of Care ---
:1955 Author Organization [facility] [place] Address [address] [place] [address]- Encounter HQ Claudio_joy(FIN) [id number] Date(s): 03/20/18 - 03/20/18 [facility] [address] [place] [address]- [phone] Discharge Disposition: Home or Self Care Attending Physician: Austen Carmona MD Vital Signs Most recent to oldest [Reference Range]: 1 Height 190.5 cm (03/20/18 9:54 AM) Blood Pressure [90-140/60-90 mmHg] 136/117 mmHg (03/20/18 9:54 AM) Respiratory Rate [14-20 BRMIN] 16 BRMIN (03/20/18 9:54 AM) Peripheral Pulse Rate [60-100 bpm] 60 bpm (03/20/18 9:54 AM) Weight 140.455 kg (03/20/18 9:54 AM) Body Mass Index 38.7 m2 (03/20/18 9:54 AM) Problem List Condition Effective Dates Status Health Status Informant Chronic headache(Confirmed) 03/16/15 Active Essential hypertension(Confirmed) 09/16/14 Active Subarachnoid hemorrhage1 Active Syncope and collapse(Confirmed) 09/16/14 Active 1Data migrated from [facility] on 01/31/15. Allergies, Adverse Reactions, Alerts No Known Medication Allergies Medications Childrens Flonase 50 mcg/inh nasal spray 1 spray, NASAL, Daily, 0 Refill(s) Start Date: 08/21/17 Status: Orderedhydrochlorothiazide PO, Daily, 0 Refill(s) Start Date: 08/21/17 Status: OrderedTopamax 50 mg oral tablet 50 mg=1 tab, PO, BID, # 60 tab, 0 Refill(s) Start Date: 08/21/17 Stop Date: 12/25/17 Status: Completedtopiramate 100 mg oral tablet 100 mg=1 tab, PO, BID, X 90 day, # 180 tab, 3 Refill(s), [id number] Start Date: 03/20/18 Stop Date: 03/23/18 Status: Completedtopiramate 50 mg oral tablet See Instructions, # 180 tab, Refill(s) 2, TAKE 1 TABLET BY MOUTH TWICE A DAY, Pharmacy: [facility]/pharmacy#[id number] Start Date: 12/25/17 Stop Date: 03/20/18 Status: Discontinuedtramadol 50 mg oral tablet 50 mg=1 tab, PO, Q4H, 0 Refill(s) Start Date: 08/21/17 Status: Ordered Results No data available for this section Immunizations No data available for this section Procedures No data available for this section Social History Social History Type Response Smoking Status Never smoker; Exposure to Tobacco Smoke None; Cigarette Smoking Last 365 Days No; Reg Smoking Cessation Counseling No entered on: 03/20/18 Assessment and Plan No data available for this section
--- OUTSIDE RECORDS SUMMARY | 2018-12-03 12:38 | XMS REPORT | Summary of Care ---
:1955 Author Organization [facility] [place] Address [address] [place] [address]- phone Encounter HQ Encntr_alias(FIN) [id number] Date(s): 03/25/18 - 03/26/18 [facility] [address] [place] [address]- [phone] Vital Signs No data available for this section Problem List Condition Effective Dates Status Health Status Informant Chronic headache(Confirmed) 03/16/15 Active Essential hypertension(Confirmed) 09/16/14 Active Subarachnoid hemorrhage1 Active Syncope and collapse(Confirmed) 09/16/14 Active 1Data migrated from [facility] on 01/31/15. Allergies, Adverse Reactions, Alerts No Known Medication Allergies Medications No data available for this section Results No data available for this section [...]
--- OUTSIDE RECORDS SUMMARY | 2018-12-03 12:38 | XMS REPORT ---
:1955 Author Organization [employer] Care Team Providers Name Role Phone Alford, Na Provider Role Unavailable Allergies, Adverse Reactions, Alerts Substance Reaction Event Type N.K.D.A. Info Not Available Non Drug Allergy Problems Problem Type Condition Code Onset Dates Condition Status Problem Obesity E66.9 Active Problem Anxiety F41.9 Active Problem Headache R51 Active Problem Obstructive sleep apnea G47.33 Active Problem Obesity (BMI 30-39.9) E66.9 Active Problem Allergic rhinitis J30.9 Active Problem Hypertension I10 Active Problem Erectile dysfunction, unspecified N52.9 Active erectile dysfunction type Problem COPD, mild J44.9 Active Assessment Obesity (BMI 30-39.9) E66.9 Active Assessment Allergic rhinitis J30.9 Active Assessment Hypertension I10 Active Assessment Erectile dysfunction, unspecified N52.9 Active erectile dysfunction type Assessment COPD, mild J44.9 Active Assessment Anxiety F41.9 Active Assessment Adult general medical exam Z00.00 Active Medications Medication Code Code Instructions Start End Status Dosage System Date Date Fluticasone ND 72630564660 50 MCG/ACT Active 1 spray in Propionate Nasally Once a each nostril day Claritin [facility] 76773247608 10 MG Orally Active 1 tablet Once a day Tylenol # 3 ND 0 30-500-15 MG Active 2 tablets as Orally every 6 needed hrs Cyclobenzaprine ND 04993604696 10 MG Orally Active 1 tablet as HCl Three times a needed day Propranolol HCl ND 15719666500 40 MG Orally Active TAKE 1 TABLET twice a day BY MOUTH TWICE A DAY Breo Ellipta ND 48883680120 100-25 MCG/INH Active 1 puff Inhalation Once a day Triamcinolone ND 44872016508 0.5 % Active 1 application Acetonide Externally to affected Twice a day area Fluticasone ND 95489613218 50 MCG/ACT Active 1 spray in Propionate Nasally Once a each nostril day Flomax ND 87057912072 0.4 MG Orally Active 1 capsule 30 Once a day minutes after the same meal each day Dilcia [facility] 82148088655 10 MG Active TAKE 1 TABLET BY MOUTH EVERY DAY Results No Known Results Summary Purpose [employer] Submission
--- OUTSIDE RECORDS SUMMARY | 2018-12-03 12:38 | XMS REPORT ---
:1955 Author Organization [employer] Care Team Providers Name Role Phone Alford, Na Provider Role Unavailable Allergies, Adverse Reactions, Alerts Substance Reaction Event Type N.K.D.A. Info Not Available Non Drug Allergy Problems Problem Type Condition Code Onset Dates Condition Status Assessment Hospital discharge follow-up Z09 Active Problem COPD, mild J44.9 Active Problem Hypertension I10 Active Problem Obesity E66.9 Active Problem Allergic rhinitis J30.9 Active Problem Obstructive sleep apnea G47.33 Active Problem Erectile dysfunction, unspecified N52.9 Active erectile dysfunction type Problem Anxiety F41.9 Active Problem Headache R51 Active Assessment Anxiety F41.9 Active Assessment Allergic rhinitis J30.9 Active Assessment Hypertension I10 Active Assessment Erectile dysfunction, unspecified N52.9 Active erectile dysfunction type Assessment COPD, mild J44.9 Active Medications Medication Code Code Instructions Start End Status Dosage System Date Date Tylenol # 3 NDC 0 30-500-15 MG Active 2 tablets as Orally every 6 needed hrs Fluticasone ND 96557146785 50 MCG/ACT Active 1 spray in Propionate Nasally Once a each nostril day Fluticasone NDC 33401323828 50 MCG/ACT Active 1 spray in Propionate Nasally Once a each nostril day Cyclobenzaprine ND 40047744855 10 MG Orally Active 1 tablet as HCl Three times a needed day Triamcinolone ND 57880387593 0.5 % Active 1 application Acetonide Externally to affected Twice a day area Singulair ND 88575785916 10 MG Active TAKE 1 TABLET BY MOUTH EVERY DAY Propranolol HCl ND 99221755308 40 MG Orally Active TAKE 1 TABLET twice a day BY MOUTH TWICE A DAY Flomax ND 79143069957 0.4 MG Orally Active 1 capsule 30 Once a day minutes after the same meal each day Claritin ND 06750804073 10 MG Orally Active 1 tablet Once a day Results No Known Results Summary Purpose [employer] Submission
--- OUTSIDE RECORDS SUMMARY | 2018-12-03 12:38 | XMS REPORT ---
[...] End Status Dosage System Date Date Claritin [facility] 11432744789 10 MG Orally Active 1 tablet Once a day Cyclobenzaprine ND 02947731079 10 MG Orally Active 1 tablet as HCl Three times a needed day Singulair [facility] 14653557062 10 MG Active TAKE 1 TABLET BY MOUTH EVERY DAY Fluticasone [facility] 50338020561 50 MCG/ACT Active 1 spray in Propionate Nasally Once a each nostril day Flomax ND 08240285493 0.4 MG Orally Active 1 capsule 30 Once a day minutes after the same meal each day Propranolol HCl ND 73296142704 40 MG Active TAKE 1 TABLET BY MOUTH TWICE A DAY Tylenol # 3 NDC 0 30-500-15 MG Active 2 tablets as Orally every 6 needed hrs Triamcinolone ND 88730832803 0.5 % Active 1 application Acetonide Externally to affected Twice a day area Results No Known Results Summary Purpose [employer] Submission
--- OUTSIDE RECORDS SUMMARY | 2018-12-03 12:38 | XMS REPORT ---
[...] Status Dosage System Date Date Propranolol HCl [facility] 23477040511 40 MG Orally Active TAKE 1 twice a day TABLET BY MOUTH TWICE A DAY Results No Known Results Summary Purpose [employer] Submission
--- OUTSIDE RECORDS SUMMARY | 2018-12-03 12:38 | XMS REPORT ---
[...] Active Assessment Allergic rhinitis J30.9 Active Assessment Blood tests for routine general Z00.00 Active physical examination Assessment Hypertension I10 Active Medications Medication Code Code Instructions Start End Status Dosage System Date Date Singulair [facility] 49008734477 10 MG Active TAKE 1 TABLET BY MOUTH EVERY DAY Fluticasone ND 04035756961 50 MCG/ACT Active 1 spray in Propionate Nasally Once a each nostril day Tylenol # 3 NDC 0 30-500-15 MG Active 2 tablets as Orally every 6 needed hrs Triamcinolone ND 17868657080 0.5 % Active 1 application Acetonide Externally to affected Twice a day area Claritin ND 59854819489 10 MG Orally Active 1 tablet Once a day Fluticasone ND 66361558811 50 MCG/ACT Active 1 spray in Propionate Nasally Once a each nostril day Cyclobenzaprine ND 52101605177 10 MG Orally Active 1 tablet as HCl Three times a needed day Propranolol HCl ND 19353830893 40 MG Orally Active TAKE 1 TABLET twice a day BY MOUTH TWICE A DAY Breo Ellipta ND 80508317260 100-25 MCG/INH Aug 03, Jan 30, Active 1 puff Inhalation 2018 2018 Once a day Flomax ND 74321119456 0.4 MG Orally Active 1 capsule 30 Once a day minutes after the same meal each day Murray [facility] 39303676357 5 MG Orally Aug 03August Active 1 tablet as Once a day 2018, 2018 Results No Known Results Summary Purpose eClinicalWorks Submission
--- OUTSIDE RECORDS SUMMARY | 2018-12-03 12:38 | XMS REPORT ---
:1955 Author Organization eClinicalWorks Care Team Providers Name Role Phone Alford, Na Provider Role Unavailable Allergies No Known Allergies Problems Problem Type Condition Code Onset Dates Condition Status Assessment Allergic rhinitis J30.9 Active Problem COPD, mild J44.9 Active Problem Hypertension I10 Active Problem Obesity E66.9 Active Problem Allergic rhinitis J30.9 Active Problem Obstructive sleep apnea G47.33 Active Problem Erectile dysfunction, unspecified N52.9 Active erectile dysfunction type Problem Anxiety F41.9 Active Problem Headache R51 Active Medications Medication Code Code Instructions Start End Status Dosage System Date Date Fluticasone NDC 96013968671 50 MCG/ACT Active 1 spray in Propionate Nasally Once a each day nostril Results No Known Results Summary Purpose eClinicalWorks Submission
[2018-12-03] MEDS ORDERED: BUPIVACAINE 0.5% PF 10 ML VIAL ONE (13:55)
[2018-12-03] MEDS ORDERED: LIDOCAINE 1% MPF 5 ML VIAL ONE (13:59)
--- NOTE | 2018-12-03 14:09 | RAD REPORT ---
EXAM DESCRIPTION: RAD - Foot Right 3 View - 12/03/2018 1:58 pm CLINICAL HISTORY: Right foot pain, right first toe pain COMPARISON: None. FINDINGS: No fracture, dislocation or periosteal reaction. No acute or destructive bone process iden tifiable. Patient has mild degenerative change at the first toe IP joint. No erosive change. Spurring is minimal along the medial margin of this joint. Punctate hyperdensity at the anterior tip of the f irst toe is probably a skin contaminant. Foreign body is unlikely. No suspicious soft tissue mass or calcification. The second- fifth toes show IP joint degenerative changes. No destructive components. Mild first MTP joint degenerative change present without spurring or erosive component. The second- fifth MTP joints are intact. Moderate spurring seen at the Achilles attachment site. No air or foreign body in the soft tissues. IMPRESSION: Degenerative changes are present at the first MTP joint and first IP joint. No acute or destructive finding. No suspicious bone or soft tissue finding to explain right first toe pain pattern.
--- NOTE | 2018-12-03 14:44 | ER ---
Nurse's Notes [facility] Name: Winston Garcia Age: 63 yrs Sex: Male : 1955 Arrival Date: 12/03/2018 Time: 12:38 Bed 12 Private MD: Sanjana Alford Diagnosis: Ingrowing nail-right great toe Presentation: 12/03 12:47 Presenting complaint: Right great toe pain and swelling x 2 months. Transition of care: hb patient was not received from another setting of care. Onset of symptoms is unknown. Risk Assessment: Do you want to hurt yourself or someone else? Patient reports no desire to harm self or others. Initial Sepsis Screen: Does the patient meet any 2 criteria? No. Patient's initial sepsis screen is negative. Does the patient have a suspected source of infection? No. Patient's initial sepsis screen is negative. Care prior to arrival: None. 12:47 Method Of Arrival: Ambulatory hb 12:47 Acuity: LOBITO 4 hb Triage Assessment: 12:48 General: Appears in no apparent distress. Behavior is calm, cooperative. Pain: Pain hb currently is 5 out of 10 on a pain scale. Neuro: Level of Consciousness is awake, alert, obeys commands, Oriented to person, place, time, situation. Cardiovascular: Capillary refill < 3 seconds Patient's skin is warm and dry. Respiratory: Airway is patent Respiratory effort is even, unlabored, Respiratory pattern is regular, symmetrical. Derm: Skin is pink, warm \T\ dry. Musculoskeletal: Reports right great toe pain, mild swelling noted, toenail discolored brown. Historical: - Allergies: 12:47 No Known Allergies; hb - PMHx: 12:47 Hypertension; brain aneurysm; hb - PSHx: 12:47 cyst removed from top of head; BRAIN SX FOR ANEURYSM; back; hb - Immunization history:: Adult Immunizations up to date. - Social history:: Smoking status: Patient/guardian denies using tobacco. - Ebola Screening: : No symptoms or risks identified at this time. Screenin:48 Abuse screen: Denies threats or abuse. Denies injuries from another. Nutritional hb screening: No deficits noted. Tuberculosis screening: No symptoms or risk factors identified. Fall Risk None identified. Assessment: 12:50 General: see triage assessment. hb 13:45 Reassessment: Patient appears in no apparent distress at this time. Patient and/or hb family updated on plan of care and expected duration. Pain level reassessed. Patient is alert, oriented x 3, equal unlabored respirations, skin warm/dry/pink. Awaiting radiology results at this time. remains at bedside. 15:08 Reassessment: Patient appears in no apparent distress at this time. Patient and/or iw family updated on plan of care and expected duration. Pain level reassessed. Patient is alert, oriented x 3, equal unlabored respirations, skin warm/dry/pink. Vital Signs: 12:46 BP 128 / 75; Pulse 74; Resp 16; Temp 97.4(TE); Pulse Ox 100% on R/A; Weight 136.08 kg; hb Height 6 ft. 3 in. (190.50 cm); Pain 5/10; 12:46 Body Mass Index 37.50 (136.08 kg, 190.50 cm) hb ED Course: 12:38 Patient arrived in ED. mr 12:38 Sanjana Alford MD is Private Physician. mr 12:47 Arm band placed on. hb 12:48 Triage completed. hb 12:50 Ric Walker PA is PHCP. cp 12:50 Michael Kimble MD is Attending Physician. cp 12:59 Patient has correct armband on for positive identification. Call light in reach. hb 13:23 Jayne Torres, RN is Primary Nurse. hb 13:55 X-ray completed. Portable x-ray completed in exam room. Patient tolerated procedure sw well. 13:58 XRAY Foot RIGHT 3 View In Process Unspecified. EDMS 14:42 Sanjana Alford MD is Referral Physician. cp 15:08 Patient did not have IV access during this emergency room visit. Wound care: located on iw Right first toenail was cleaned with Hibiclens, dressed with 4X4s, Kerlix, Patient tolerated well. 15:09 No provider procedures requiring assistance completed. iw Administered Medications: No medications were administered Outcome: 14:43 Discharge ordered by . cp 15:08 Discharged to home ambulatory, with family. iw 15:08 Condition: good 15:08 Discharge instructions given to patient, family, Instructed on discharge instructions, follow up and referral plans. medication usage, Demonstrated understanding of instructions, follow-up care, medications, Prescriptions given X 2. 15:09 Patient left the ED. iw Signatures: Dispatcher [employer] EDMS Jacquelin Morrison Irene, RN RN Cynthia Dillard Corey, PA PA cp Baxter, Heather, ROSIE RN hb
--- NOTE | 2018-12-03 14:44 | EDPHYS ---
Physician Documentation [facility] Name: Winston Garcia Age: 63 yrs Sex: Male : 1955 Arrival Date: 12/03/2018 Time: 12:38 Bed 12 Private MD: Sanjana Alford ED Physician Michael Kimble HPI: 12/03 13:35 This 63 yrs old Male presents to ER via Ambulatory with complaints of cp Infected toe. 13:35 The patient presents with pain, that is acute, swelling, tenderness. The complaints cp affect the right great toe. 13:35 Context: resulted from an unknown cause, the patient can fully bear weight. Onset: The cp symptoms/episode began/occurred gradually. Associated signs and symptoms: Pertinent positives: warmth, erythema, Pertinent negatives: calf tenderness, fever, numbness. Severity of symptoms: in the emergency department the symptoms are unchanged, despite home interventions. Historical: - Allergies: 12:47 No Known Allergies; hb - PMHx: 12:47 Hypertension; brain aneurysm; hb - PSHx: 12:47 cyst removed from top of head; BRAIN SX FOR ANEURYSM; back; hb - Immunization history:: Adult Immunizations up to date. - Social history:: Smoking status: Patient/guardian denies using tobacco. - Ebola Screening: : No symptoms or risks identified at this time. ROS: 13:40 Constitutional: Negative for body aches, chills, fever, poor PO intake. cp 13:40 MS/extremity: Positive for erythema, pain, swelling, tenderness, of the right great cp toe, Negative for injury or acute deformity, paresthesias. 13:40 Respiratory: Negative for cough, shortness of breath, wheezing. 13:40 Abdomen/GI: Negative for abdominal pain, nausea, vomiting, and diarrhea. 13:40 All other systems are negative. Exam: 13:40 Constitutional: The patient appears in no acute distress, alert, awake, non-toxic, well cp developed, well nourished. 13:40 Head/Face: Normocephalic, atraumatic. cp 13:40 Musculoskeletal/extremity: Extremities: grossly normal except: noted in the right great toe: erythema, swelling, tenderness, tender to palpation, distal aspect of medial nail, There is no evidence of injury or trauma. 13:40 Skin: abscess, not appreciated, cellulitis, that is mild, on the distal aspect right great toe. Vital Signs: 12:46 BP 128 / 75; Pulse 74; Resp 16; Temp 97.4(TE); Pulse Ox 100% on R/A; Weight 136.08 kg; hb Height 6 ft. 3 in. (190.50 cm); Pain 5/10; 12:46 Body Mass Index 37.50 (136.08 kg, 190.50 cm) hb Procedures: 15:00 Performed ingrown nail removal. partial digital block performed with 4 ccs of 50/50 cp mixture of 1% lidocaine w/o epi and 0.5% marcaine. Area cleaned with betadine and using hemostats, distal part of medial aspect of nail on right great toe was removed. Area dressed with triple antibiotic, gauze and Coban. Patient tolerated well. MDM: 13:00 Patient medically screened. cp 14:00 Differential diagnosis: fracture, sprain, gout, cellulitis, ingrown nail. cp 14:42 Data reviewed: vital signs, nurses notes, radiologic studies, plain films. cp 14:42 Counseling: I had a detailed discussion with the patient and/or guardian regarding: the cp historical points, exam findings, and any diagnostic results supporting the discharge/admit diagnosis, radiology results, the need for outpatient follow up, a family practitioner, to return to the emergency department if symptoms worsen or persist or if there are any questions or concerns that arise at home. 14:42 Response to treatment: the patient's symptoms have markedly improved after treatment, cp and as a result, I will discharge patient. 12/03 13:30 Order name: XRAY Foot RIGHT 3 View; Complete Time: 14:21 cp 12/03 13:35 Order name: Dressing - Wound; Complete Time: 13:43 cp 12/03 13:35 Order name: Gloves, Sterile; Complete Time: 13:43 cp 12/03 13:35 Order name: Setup Suture Tray; Complete Time: 13:43 cp Administered Medications: No medications were administered Disposition: 15:15 Chart complete. cp Disposition: 12/03/18 14:43 Discharged to Home. Impression: Ingrowing nail - right great toe. - Condition is Stable. - Discharge Instructions: Ingrown Toenail. - Prescriptions for Keflex 500 mg Oral Capsule - take 1 capsule by ORAL route every 6 hours for 10 days; 40 capsule. Ibuprofen 800 mg Oral Tablet - take 1 tablet by ORAL route every 8 hours As needed take with food; 30 tablet. - Medication Reconciliation Form, Thank You Letter, Antibiotic Education, Prescription Opioid Use form. - Follow up: Sanjana Alford MD; When: 2 - 3 days; Reason: Wound Recheck. - Problem is new. - Symptoms have improved. Addendum: 12/04/2018 17:04 Co-signature as Attending Physician, Michael Kimble MD. g s Signatures: Dispatcher [employer] EDShanell Plata RN RN iw Rci Walker PA PA cp Baxter, Heather, RN RN Michael Kimble MD MD Corrections: (The following items were deleted from the chart) 12/03 15:09 14:43 12/03/2018 14:43 Discharged to Home. Impression: Ingrowing nail - right great iw toe. Condition is Stable. Forms are Medication Reconciliation Form, Thank You Letter, Antibiotic Education, Prescription Opioid Use. Follow up: Sanjana lAford; When: 2 - 3 days; Reason: Wound Recheck. Problem is new. Symptoms have improved. cp
[2018-12-03 15:18] VITALS: BP 128/75; TEMP 97.4; O2SAT 100
== END 2018-12-03 15:09 | disposition home or self-care (01) ==
LOC: ER 12:34
PROC: 0HBRXZZ Excision of Toe Nail, External Approach (ICD-10-PCS; principal; 2018-12-03)
DX: L60.0 Ingrowing nail (principal); I10 Essential (primary) hypertension
CPT/HCPCS: 99283

== ENCOUNTER 2019-11-26 20:35 | Observation (INO) | payer OTHER ==
--- OUTSIDE RECORDS SUMMARY | 2019-11-26 20:37 | XMS REPORT | Continuity of Care Document ---
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 Headache Active Problem 08/09/2019 [facility] (finding) Neuro Medications Medication Details Route Status Patient Ordering Order Source Instructions Provider Date gabapentin 400 MG 400 mg = Active Misch er Oral Capsule 1 cap, 020 Neuro PO, BID, # 60 cap, 4 Refill(s) , Pharmacy: [id number] gabapentin 300 MG 300 mg = No Misch er Oral Capsule 1 cap, Longer 019 Neuro PO, BID, Active # 60 cap, 3 Refill(s) , Pharmacy: [id number] pregabalin 75 MG Oral 75 mg = 1 Active [facility]ischer Capsule [Lyrica] cap, PO, 019 Neuro BID, # 60 cap, 3 Refill(s) topiramate 100 mg 100 mg = Active Misch er oral tablet 1 tab, 019 Neuro PO, Bedtime, # 90 tab, 3 Refill(s) , Pharmacy: [id number] pregabalin 75 MG Oral 75 mg = 1 Active [facility] Capsule [Lyrica] cap, PO, 019 Neuro Daily, # 30 cap, 2 Refill(s) topiramate 100 mg 100 mg = No Misch er oral tablet 1 tab, Longer 018 Neuro PO, BID, Active # 180 tab, 3 Refill(s) , Pharmacy: [id number] topiramate 100 mg 100 mg = No Misch er oral tablet 1 tab, Longer 018 Neuro PO, BID, Active X 90 day, # 180 tab, 3 Refill(s) , Pharmacy: [id number] topiramate 50 mg oral See No Mi jennifer tablet Instructi Longer 018 Neuro ons, # Active 180 tab, Refill(s) 2, TAKE 1 TABLET BY MOUTH TWICE A DAY, Pharmacy: [id number] Hydrochlorothiazide PO, Active Misc her Daily, 0 018 Neuro Refill(s) tramadol 50 mg = 1 Active Mischer hydrochloride 50 MG tab, PO, 018 Sari ro Oral Tablet Q4H, 0 Refill(s) Fluticasone 1 spray, Active [facility]ischer propionate 0.05 NASAL, 018 Neuro MG/ACTUAT Metered Daily, 0 Dose Nasal Grant Refill(s) [Flonase] topiramate 50 MG Oral 50 mg = 1 No [facility]ischer Tablet [Topamax] tab, PO, Longer 018 Neuro BID, # 60 Active tab, 0 Refill(s) Allergies, Adverse Reactions, Alerts Substance Category Reaction Severity Reaction Status Date Comments S ource type Reported No Known Assertion Drug Misch er Medication allergy Neuro Allergies Immunizations No Data Provided for This Section Results Order Name Results Value Reference Date Interpretation Comments Tona rce Range ANEMIA STUDY Vitamin 279 200 - 1100 04/05/ Result Comment: [facility] B12 Lvl 2018
Please Note: Neuro Although the reference range for vitamin
B12 is 200-1100 pg/mL, it has been reported that between
5 and 10% of patients with values between 200 and 400
pg/mL may experience neuropsychiatric and hematologic
a bnormalities due to occult B12 deficiency; less than 1%
of patients with values above 400 pg/mL will have symptoms.

Lab test performed by:
[facility]
[address]
[place] [address]
Katelynn Rowell CHEM PANEL VITAMIN 138 78 - 185 04/05/ Result Comment: [facility] her B1 2019 Vitamin Neuro (THIAMINE supplementation ) WHOLE within 24 hours BLOOD prior to blood draw may
affect the accuracy of results.

This test was developed and its analytical performance
characterist ics have been determined by [facility]. It has not been cleared or approved by FDA.
This assay has been validated pursuant to the CLIA regulations
and is used for clinical purposes.
FAS TING:YES
<br/ >FASTING: YES

Lab test performed by:
[facility]
[address] [facility]
[place] [address]
Lakshmi Holt M.D., Ph.D HEMATOLOGY Sed Rate 6 < OR = 20 04/05/ Result Comment: Selma rodriguez mm/hr 2018
Lab test Neuro performed by:
[facility]
[address] [place] [address]
[place] [address]
Katelynn Rowell IMMUNOLOGY C-REACTIV 7.0 <8.0 mg/L 04/05/ Result Comment: [facility] Derrell PROTEIN 2019
Lab test Neur o performed by:
[facility]
[address] [place] [address]
[place] [address]
Katelynn Rowell Pathology Reports No Data Provided for This Section Diagnostic Reports No Data Provided for This Section Consultation Notes No Data Provided for This Section Discharge Summaries No Data Provided for This Section History and Physicals No Data Provided for This Section Vital Signs Vital Sign Value Date Comments Source Systolic (mm Hg) 129 [facility] Diastolic (mm Hg) 82 08/06/2019 [facility] Heart Rate 70 08/06/2019 [facility] Respitory Rate 16 08/06/2019 [facility] Height 190.5 cm 08/06/2019 [facility] Weight 146.364 08/06/2019 [facility] BMI Calculated 40.33 08/06/2019 [facility] Systolic (mm Hg) 119 05/03/2019 [facility] Sari ro Diastolic (mm Hg) 81 05/03/2019 [facility] Ne uro Heart Rate 69 05/03/2019 [facility] Neuro Respitory Rate 16 05/03/2019 [facility] Height 190.5 cm 05/03/2019 [facility] Weight 141.818 05/03/2019 [facility] Neuro BMI Calculated 39.08 05/03/2019 [facility] Systolic (mm Hg) 123 03/19/2019 [facility] Sari ro Diastolic (mm Hg) 77 03/19/2019 [facility] Heart Rate 72 03/19/2019 [facility] Neuro Respitory Rate 16 03/19/2019 [facility] Neuro Height 190.5 cm 03/19/2019 [facility] Neuro Weight 133.636 03/19/2019 [facility] Neuro BMI Calculated 36.82 03/19/2019 [facility] Neuro BMI Calculated 38.7 03/20/2018 [facility] Neuro Height 190.5 cm 03/20/2018 [facility] Neuro Weight 140.455 03/20/2018 [facility] Neuro Respitory Rate 16 03/20/2018 [facility] Neuro Heart Rate 60 03/20/2018 [facility] Neuro Systolic (mm Hg) 136 03/20/2018 [facility] Diastolic (mm Hg) 117 03/20/2018 [facility] Ne uro Encounters Location Location Encounter Encounter Reason Attending ADM ND Stat Source Details Type Number For Provider Date Date Visit Outpatient [id number] ALVINA 03/20 [facility] Abad MNA Outpatient [id number] Alvina 03/20 03/21 [facility] Neurology [facility] Neuro [place] MNA Outside [id number] 03/25 03/27 [facility] Neurology Medical /2017 Neuro [place] Records MNA Outside [id number] 05/29 05/31 [facility] Neurology Medical /2017 Neuro [place] Records Outpatient [id number] Alvina 03/19 [facility] Abad MNA Outpatient [id number] Alvina 03/19 03/20 [facility] Neurology [facility] Neuro [place] Outpatient [id number] Alvina 04/30 [facility] [place] MNA Ambulatory [id number] Alvina 04/30 04/30 [facility] Neurology Pre-Reg [facility] Neuro [place] Outpatient [id number] Alvina 05/03 Active [facility] Abad MNA Outpatient [id number] Alvina 05/03 05/04 [facility] Neuro [place] Outpatient [id number] Alvina 08/06 Active [facility] Abad MNA Outpatient [id number] Alvina 08/06 [facility] Neuro [place] Outpatient [id number] Alvina 02/03 Active [facility] [place] Procedures No Data Provided for This Section Assessment and Plan No Data Provided for This Section Plan of Care No Data Provided for This Section Social History Social History Date Source Social History TypeResponse 08/06/2019 [facility] Ne[facility] Smoking Status Never smoker; Exposure to Tobacco Smoke None; Cigarette Smoking Last 365 Days No; Reg Smoking Cessation Counseling No entered on: 08/06/19 Family History No Data Provided for This Section Advance Directives No Data Provided for This Section Functional Status No Data Provided for This Section
--- OUTSIDE RECORDS SUMMARY | 2019-11-26 20:38 | XMS REPORT | Continuity of Care Document ---
:1955 Author Organization [facility] t Address [address] [place] [id number] Care Team Providers Name Role Phone Gideon Carmona Attending Clinician Problems Condition Condition Condition Status Onset Resolution Last Treating Co mments Source Name Details Category Date Date Treatment Clinician Date Non-trauma Non-trauma Problem Active [facility] illage tic tic 6- 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 Subdural 00:00: Practi c hemorrhage Hemorrhage 00 e 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 Chronic 6- Family obstructiv Obstructiv 00:00: Pr actic e e 00 e pulmonary Pulmonary disease Disease Benign Benign Problem Active [facility] prostatic Prostatic 6 Fami ly hyperplasi Hyperplasi 00:00: Pr actic a a 00 e Hypertensi Hypertensi Problem Active V illage ve ve 6-03 Family disorder Disorder 00:00: Practi c 00 e Seasonal Seasonal Problem Active Boo ge allergy Allergy 6- Family 00:00: Practic 00 e Generalize Generalize Problem Active V illage d headache d Headache 6- Fa jose 00:00: Practic 00 e Chronic Problem Active 2014-062019-08-09 Taj hayden headache 0-08 01:00:20 l disorder Chronic 00:00: Mary nn (disorder) headache 00 disorder (disorder) Active 03/16/2015 Problem 08/09/2019 [facility] Essential Problem Active 2019-08-09 Me moria hypertensi 4-10 01:00:20 l on 00:00: Abad (disorder) Essential 00 hypertensi on (disorder) Active 09/16/2014 Problem 08/09/2019 [facility] Syncope Problem Active 2019-08-09 Taj hayden and 4 01:00:20 l collapse Syncope 00:00: Mary nn (disorder) and 00 collapse (disorder) Active 09/16/2014 Problem 08/09/2019 [facility] COPD, mild COPD, mild Diagnosis Active [facility] Hypertensi Hypertensi Diagnosis [facility] Obesity Obesity Problem Active [facility] (BMI (BMI [facility] - 30-39.9) 30-39.9) Memori a l [facility] Allergic Allergic Diagnosis Active [facility]initis [facility] EMILE EMILE Diagnosis Active [facility] (obstructi (obstructi [place] - ve sleep ve sleep Memori a apnea) apnea) l [facility] Erectile Erectile Problem Active [facility] dysfunctio dysfunctio [place] - n, n, Memoria unspecifie unspecifie l d erectile d erectile Ou tpati dysfunctio dysfunctio en t n type n type Clinics Anxiety Anxiety Problem Active [facility] Frequent Frequent Diagnosis Active [facility] headaches headaches [facility] - [facility] Blood Blood Diagnosis Active [facility] tests for tests for Luke s - routine routine Memoria general general l physical physical Outpat i examinatio examinatio en t n n Clinics BMI BMI Diagnosis Active [facility] 40.0-44.9, 40.0-44.9, [place] - adult adult Memoria l [facility] Actinic Actinic Diagnosis Active [facility] keratosis keratosis [facility] Subarachno Problem Active 2019-08-09 M emoria id 01:00:20 l hemorrhage Piero n (disorder) Subarachno id hemorrhage (disorder) Active Problem 08/09/2019 Data migrated from [employer] on 01/31/15. [facility] Headache Problem Active 2019-08-09 Mem oria (finding) 01:00:20 l Headache Piero n (finding) Active Problem 08/09/2019 [facility] Allergies, Adverse Reactions, Alerts Allergy Allergy Status Severity Reaction(s) Onset Inactive Treating Comm ents Source Name Type Date Date Clinician No Known No Known Active Memori a Medicati Medicati l on on Abad Segal s s Social History Smoking Status Start Date Stop Date Source Former Smoker [place] Family P adry Social History [facility] Medications Ordered Filled Start Stop Current Ordering Indication Dosage Frequency Signature Comments Components Source Medication Medication Date Date Medication? Clinician (SIG) Name Name gabapentin Yes 400 mg = 1 M emoria 400 MG Oral 2-28 cap, PO, l Capsule 15:12: BID, # 60 Mary nn 00 cap, 4 Refill(s), Pharmacy: [facility][id number] Neomycin-Po Neomycin-Po Yes Na Alford [address] [facility] lymyxin-HC lymyxin-HC 1-07 into Malissa es - 00:00: affected Memoria 00 ear l [facility] gabapentin 2018-06 No 300 mg = 1 M emoria 300 MG Oral 2-17 cap, PO, l Capsule 22:32: BID, # 60 Mary nn 00 cap, 3 Refill(s), Pharmacy: [facility] #[id number] pregabalin 2018-06 Yes 75 mg = 1 Me moria 75 MG Oral 1-25 cap, PO, l Capsule 15:17: BID, # 60 Mary nn [Lyrica] 29 cap, 3 Refill(s) topiramate 2018-06 Yes 100 mg = 1 M emoria 100 mg oral 0-11 tab, PO, l tablet 15:16: Bedtime, # Mary nn 10 90 tab, 3 Refill(s), Pharmacy: [facility] #[id number] pregabalin 2019 Yes 75 mg = 1 Me moria 75 MG Oral 0-11 cap, PO, l Capsule 15:16: Daily, # Piero n [Lyrica] 00 30 cap, 2 Refill(s) Breo Breo No Na Alford [address] [facility] Ellipta Ellipta 2-25 06-06 [facility] - 00:00: 00:00 Memoria 00 :00 l [facility] topiramate 2017-06 No 100 mg = 1 M emoria 100 mg oral 0-15 tab, PO, l tablet 19:36: BID, # 180 Mary nn 08 tab, 3 Refill(s), Pharmacy: [facility] #[id number] topiramate 2017-06 No 100 mg = 1 M emoria 100 mg oral 0-12 tab, PO, l tablet 15:28: BID, X 90 Piero n 00 day, # 180 tab, 3 Refill(s), Pharmacy: [id number] topiramate 2017-0 No See Memoria 50 mg oral 7-20 Instructio l tablet 00:01: ns, # 180 Piero n 41 tab, Refill(s) 2, TAKE 1 TABLET BY MOUTH TWICE A DAY, Pharmacy: [facility] #[id number] Hydrochloro 2018-0 Yes PO, Daily, Memoria thiazide 3-15 0 l 19:55: Refill(s) [place] 00 tramadol 2017-0 Yes 50 mg = 1 Taj hayden hydrochlori 3-15 tab, PO, l de 50 MG 19:55: Q4H, 0 Abad Oral Tablet 00 Refill(s) Fluticasone 2017- Yes 1 spray, Me moria propionate 3-15 NASAL, l 0.05 19:55: Daily, 0 [place] MG/ACTUAT 00 Refill(s) Metered Dose Nasal Andrew [Flonase] topiramate No 50 mg = 1 Me moria 50 MG Oral 3-15 tab, PO, l Tablet 19:55: BID, # 60 Piero n [Topamax] 00 tab, 0 Refill(s) gabapentin gabapentin No 1capsul BID gabapentin [facility] 400 mg 400 mg e(s) 400 mg Family capsule capsule capsule Practi c Take 1 Take 1 Take 1 e capsule capsule capsule twice a day twice a day twice a by oral by oral day by route. route. oral route. montelukast montelukast No 1 Q1D montelukas [facility] 10 mg 10 mg t 10 mg Family tablet Take tablet Take tablet Practic 1 tablet 1 tablet Take 1 e every day every day tablet by oral by oral every day route. route. by oral route. propranolol propranolol No 1 BID propranolo [place] 40 mg 40 mg l 40 mg Family tablet Take tablet Take tablet Practic 1 tablet 1 tablet Take 1 e twice a day twice a day tablet by oral by oral twice a route. route. day by oral route. tadalafil tadalafil No 1 Q1D tadalafil [place] 10 mg 10 mg 10 mg Family tablet Take tablet Take tablet Practic 1 tablet 1 tablet Take 1 e every day every day tablet by oral by oral every day route. route. by oral route. tamsulosin tamsulosin No 1capsul Q1D tamsulosin [place] 0.4 mg 0.4 mg e(s) 0.4 mg Family capsule capsule capsule Practi c Take 1 Take 1 Take 1 e capsule capsule capsule every day every day every day by oral by oral by oral route. route. route. Fluticasone Fluticasone Yes Na Alford [address] [facility] Propionate Propionate each Malissa es - nostril Memoria l [facility] Singulair Singulair Yes Na Alford TAKE [address] [facility] TABLET BY [facility]ukes - MOUTH Memoria EVERY DAY [facility] Propranolol Propranolol Yes Na Alford TAKE [address] [facility] HCl HCl TABLET BY [facility]ukes - MOUTH Memoria TWICE A l DAY [facility] Lyrica Lyrica Yes Na Alford [address] [facility] Claritin Claritin Na Alford [address] [facility] 11-12 [facility] - 00:00 Memoria :00 [facility] Immunizations Ordered Filled Immunization Date Status Comments Sour e Immunization Name Name Afluria single dose Afluria single dose 2019-02-[address] [facility] 00:[facility] Vital Signs Vital Name Observation Time Observation Value Comments Source Height 2019-11-10 00:00:00 76 [in_i] [facility] BMI (Body Mass 2019-11-10 00:00:00 36.5 kg/m2 [facility] Family Index) Practice Body Weight 2019-11-10 00:00:00 300 [lb_av] [facility] Systolic (mm Hg) 2019-08-06 14:55:00 Taj rial Abad Diastolic (mm Hg) 2019-08-06 14:55:00 [facility] orial [place] Heart Rate 2019-08-06 14:55:00 [facility] [place] Respitory Rate 2019-08-06 14:55:00 Damion al Abad Height 2019-08-06 14:55:00 190.5 cm [facility] Weight 2019-08-06 14:55:00 [facility] BMI Calculated 2019-08-06 14:55:00 Memori al [place] Systolic (mm Hg) 2019-05-03 15:05:00 Taj rial Abad Diastolic (mm Hg) 2019-05-03 15:05:00 [facility] orial [place] Heart Rate 2019-05-03 15:05:00 [facility] Resp[facility] Rate 2019-05-03 15:05:00 Memori al [place] Height 2019-05-03 15:05:00 190.5 cm [facility] Abad Weight 2019-05-03 15:05:00 [facility] [place] BMI Calculated 2019-05-03 15:05:00 Memori al [place] Systolic (mm Hg) 2019-03-19 14:28:00 Taj rial Abad Diastolic (mm Hg) 2019-03-19 14:28:00 Mem orial Abad Heart Rate 2019-03-19 14:28:00 [facility] Abad Respitory Rate 2019-03-19 14:28:00 Memori al [place] Height 2019-03-19 14:28:00 190.5 cm [facility] [place] Weight 2019-03-19 14:28:00 [facility] [place] BMI Calculated 2019-03-19 14:28:00 Memori al [place] BMI Calculated 2018-03-20 14:54:00 Memori al [place] Height 2018-03-20 14:54:00 190.5 cm [facility] Abad Weight 2018-03-20 14:54:00 [facility]ad Respitory Rate 2018-03-20 14:54:00 Memori al Abad Heart Rate 2018-03-20 14:54:00 [facility] Abad Systolic (mm Hg) 2018-03-20 14:54:00 Taj rial [place] Diastolic (mm Hg) 2018-03-20 14:54:00 Mem orial Abad Procedures This patient has no known procedures. Plan of Care Planned Activity Planned Date Details Comments Source Future Appointment 2020-02-13 00:00:00 [facility] [address]; Suite [facility], [place] [id number] [place] [address] Encounters Start End Encounter Admission Attending Care Care Encounter Source Date/Time Date/Time Type Type Clinicians Facility Department ID 2019-11-10 2019-11-10 Marilin VF [place] - [id number] V illage 00:00:00 00:00:00 [facility] jihan daniels RAIL DIRECTOR: Medical - Practi c [address] [email or web address] [facility], [address], [place] [address] , Ph. 2019-10-04 2019-10-04 [facility] [id number] 09:20:00 09:20:00 t Shelby Shelby [employer] Luke s - Drive [facility] Medicine Outpati ent Clinics 2019-08-23 2019-08-23 [facility] [id number] 09:40:00 09:40:00 t Shelby Shelby [employer] Luke s - Drive [facility] Medicine Outpati ent Clinics 2019-08-06 2019-08-06 Outpatient ZEENAT Carmona MISCH [id number] 09:15:00 23:59:59 Aust[place] 04 Gideon 2019-06-15 2019-06-15 [facility] [id number] 08:40:00 08:40:00 t Shelby [facility] - Drive [facility] Medicine Outpati ent Clinics 2019-05-17 2019-05-17 [facility] [id number] 09:40:00 09:40:00 t Shelby [facility] Medicine Outpati ent Clinics 2019-05-03 2019-05-03 Outpatient ZEENAT Carmona MISCHER [id number] 09:00:00 23:59:59 [place] 03 Gideon 2019-04-30 2019-04-30 [facility] [id number] 10:30:00 10:30:00 [place] 02 Gideon 2019-03-19 2019-03-19 Outpatient VANIA CarmonaSCHJOHNNY MISCHER [id number] 09:30:00 23:59:59 [place] 01 Gideon 2019-02-15 2019-02-15 [facility] [id number] 09:40:00 09:40:00 t Shelby [employer] s - Drive [facility] Medicine Outpati ent Clinics 2018-12-03 2018-12-03 [facility] [id number] 11:43:00 11:43:00 t Shelby Shelby Cinnamon s - Drive [facility] Medicine Outpati ent Clinics 2018-11-09 2018-11-09 [facility] [id number] 08:40:00 08:40:00 t Shelby Shelby Cinnamon s - Drive [facility] Medicine Outpati ent Clinics 2018-08-03 2018-08-03 [facility] [id number] 09:00:00 09:00:00 t Shelby [employer] [facility] Outpati ent Clinics 2018-06-22 2018-06-22 [facility] [id number] 16:52:00 16:52:00 t [employer] s - [employer] [facility] Outpati ent Clinics 2018-05-29 2018-05-30 Outpatient MHMISCHER MISCHER [id number] 09:25:00 23:59:59 2018-05-06 2018-05-06 [facility] [id number] 11:15:00 11:15:00 t [employer] [facility] Outpati ent Clinics 2018-03-25 2018-03-26 Outpatient MHMISCHER MISCHER [id number] 17:33:00 23:59:59 00 2018-03-20 2018-03-20 [facility]patient [id number] 09:30:00 23:59:59 Austen 00 Gideon 2018-03-09 2018-03-09 [facility] [id number] 16:06:00 16:06:00 t [employer] [facility] Outpati ent Clinics 2018-02-06 2018-02-06 [facility] [id number] 08:30:00 08:30:00 t [employer] [facility] Outpati ent Clinics 2017-11-07 2017-11-07 [facility] [id number] 08:30:00 08:30:00 t [employer] [facility] Outpati ent Clinics Results Test Description Test Time Test Comments Results Result Comments Source ANEMIA STUDY 2019-04-05 279 [facility] huynh 15:46:00 CHEM PANEL 2019-04-05 138 [facility] Mary nn 15:46:00 HEMATOLOGY 2019-04-05 6 [facility] Mary nn 15:46:00 IMMUNOLOGY 2019-04-05 7.0 [facility] Mary nn 15:46:00
--- OUTSIDE RECORDS SUMMARY | 2019-11-26 20:38 | XMS REPORT ---
:1955 Author Organization [employer] Care Team Providers Name Role Phone Alford, Na Provider Role Unavailable Allergies, Adverse Reactions, Alerts Substance Reaction Event Type N.K.D.A. Info Not Available Non Drug Allergy Problems Problem Type Condition Code Onset Dates Condition Statu s Problem Anxiety F41.9 Active Problem Hypertension I10 Active Problem Obesity E66.9 Active Problem Obesity (BMI 30-39.9) E66.9 Active Problem Headache R51 Active Problem EMILE (obstructive sleep apnea) G47.33 Active Problem COPD, mild J44.9 Active Problem Allergic rhinitis J30.9 Active Problem Obstructive sleep apnea G47.33 Acti ve Problem Erectile dysfunction, unspecified N52.9 Active erectile dysfunction type Assessment Blood tests for routine general Z00.00 Active physical examination Assessment EMILE (obstructive sleep apnea) G47.33 Active Assessment BMI 40.0-44.9, adult Z68.41 Active Assessment Actinic keratosis L57.0 Active Assessment COPD, mild J44.9 Active Assessment Allergic rhinitis J30.9 Active Assessment Hypertension I10 Active Assessment Frequent headaches R51 Active Medications Medication Code Code Instructions Start End Status Dosage System Date Date Breo Ellipta [facility] [id number] 100-25 MCG/INH Active 1 puff Inhalation Once a day Neomycin-Polymy ND 32247263952 3.5-02940-2 Jun 15, Active 4 drops jocelyn-HC Otic Three 2020 into times a day affected ear Propranolol HCl ND 64478557107 40 MG Orally Active TAKE 1 twice a day TABLET BY MOUTH TWICE A DAY Lyrica ND 16358504638 75 MG Orally Active 1 capsu le twice a day Fluticasone ND 20093095915 50 MCG/ACT Active 1 spr ay in Propionate Nasally Once a each day nostril Claritin ND 21107474671 10 MG Orally Active 1 tabl et Once a day Singulair ND 20403125942 10 MG Active TAKE 1 TABLET BY MOUTH EVERY DAY Results No Known Results Summary Purpose [employer] Submission
--- OUTSIDE RECORDS SUMMARY | 2019-11-26 20:39 | XMS REPORT | Encounter Summary ---
:1955 Author Care Team Providers Name Role Phone Dr. Sanjana Alford Primary Care Provider [phone] Reason for Visit TELE-AWV Annual Wellness Visit Male Instructions 1. Advance directive discussed w ith patient advance care planning: car e instructions 2. Depression screening learning about depression 3. Depression screening positive learning about depression learning about mood disord ers 4. Hypertensive disorder propranolol 40 mg tablet 5. Seasonal allergy montelukast 10 mg tablet 6. Mild chronic obstructive pulm onary disease 7. Non-traumatic subdural hemorr lesly 8. Generalized headache gabapentin 400 mg capsule 9. Benign prostatic hyperplasia tadalafil 10 mg tablet tamsulosin 0.4 mg capsule Discussion Note Completed a telephone visit with hugo dodge. Patient report he has enough meds currently and does not need any refills. Patient encouraged to wash hands frequently for 20 seconds, practice social distanci ng by stay home and maintaining physical space in public. Patient encouraged to s cachil dehe medical care if he starts having continues cough, fever and sob. Patient verbalized understanding. Plan of Care Patient Instructions It was good to speak with you michelle palm today for your Medicare Annual Wellness Visit. You have been provided some information on healthy nutrition, including a diet rich in fruits and vegetables, minimizing simple carbohydrates, salt, and saturated fats. I want to encourage regular card iovascular exercise such as walking at l east 30 minutes daily, 5 times per week. Please remember to schedule any prevent hailey health measures that we talked about today. You have also been provided education on fall prevention and community- based lifestyle interventions to help reduc e health risks and promote healthy livin g in your Annual Wellness folder. Screening Recommendations 1. Vaccines Pneumonia: Next one Influen za: This Fall 2. Colorectal Cancer Screening: Colonoscopy (every 10 years) Ordered 3. Annual Prostate Screening 4. Annual Depression Screening 5. Annual Alcohol S creening 6. Annual Fall Risk Screening 7 . Annual Health Risk Assessment Reminders Provider Appointments Return to on or around Coreen osuna Office 11/13/2019 CAROL Kyle Home on or around Marilin Visit 30 02/13/2020 CAROL Kyle Lab None recorded. Referral None recorded. Procedures None recorded. Surgeries None recorded. Imaging None recorded. Medications Name Start Date gabapentin 400 mg capsule Take 1 capsule twice a day by oral route. montelukast 10 mg tablet Take 1 tablet every day by oral route. propranolol 40 mg tablet Take 1 tablet twice a day by oral route. tadalafil 10 mg tablet Take 1 tablet every day by oral route. tamsulosin 0.4 mg capsule Take 1 capsule every day by oral route. Medications Administered None recorded. Vitals Height Weight BMI 6 ft 4 in 300 lbs 36.5 kg/m2 Results Lab Results None recorded. Allergies Code Code System Name Reaction Severity Status Onset NKDA Problems Name Status Onset Date Source Hypertensive Disorder Active 11/10/2019 Seasonal Allergy Active 11/10/2019 Generalized Headache Active 11/10/2019 Non-traumatic Subdural Hemorrhage Active 11/13/2019 Mild Chronic Obstructive Pulmonary Disease Active 11/12 Benign Prostatic Hyperplasia Active 11/13/2019 Procedures Date Name Performed by Back Surgery Information not avai lable Vaccine List None recorded. Social History Tobacco Smoking Status Former Smoker Past Encounters 11/10/2019 Advance Directive Discussed with Patient ; Depression Screening; Depression Screening Positive; Hypertensive Disorder; Seasonal Allergy; Mild Chronic Obstructive Pulmonary Disease; Non-traumatic Subdural Hemorrhage; Generalized Headache; Benig n Prostatic Hyperplasia Marilin Kyle NP: [address] [facility], [address], [place] [address], Ph. History of Present Illness COPD Reported By: Patient HPI:: COPD Staging: no prior dominic metry. Quality: no cough, no shortness of breath Mini Cog Reported By: Patient Functional Ability: Personal/Social/ 3 word reca ll: Your nurse or doctor will ask you to remember 3 words. In 5 m inutes, they will ask you to repeat them. Patient recalled 2 w ords Opioid Use Assessment Reported By: Patient Opioid Use Assessment:: Current Use of Opioids : no use of opioids (no further questions required) Note: I confirm that I received verbal consent from the patient for the virtual visit.
This telemedicine encounter was performed using live {{video and audio|audio only because either patient did not have technology or unable to connect due to technical problems*}}.
<b>(for audio only)</b> Total time spent with patient: {{35#| }} minutes. Review of Systems Comprehensive General Adult ROS Reported By: Patient Constitutional: Constitutional: no fever, no night sweats, no significant weight gain, no significant weight loss, no exercise intolerance Eyes: Eyes: no dry eyes, no vision change, no irritation ENMT: Ears: no difficulty hearing, no ear pain. Nose: no frequent nosebleeds, no nose problems , no sinus problems. Mouth/Throat: no sore throat, no bleeding gums, no snoring, no dry mouth, no mouth ulcers, no oral abnorm alities, no teeth problems Cardiovascular: Cardiovascular: no chest erendira n, no arm pain on exertion, no shortness of breath when wal daniel, no shortness of breath when lying down, no palpitations, no known heart murmur, no lightheadedness Respiratory: Respiratory: no cough, no wh eezing, no shortness of breath, no coughing up blood, no sleep apnea Gastrointestinal: Gastrointestinal: no abdomin al pain, no nausea, no vomiting, no constipation, normal appe tite, no diarrhea, not vomiting blood, no dyspepsia, no GERD Genitourinary: Genitourinary: no incontinen ce, no difficulty urinating, no hematuria, no increased freq uency Musculoskeletal: Musculoskeletal: no muscle a ches, no muscle weakness, no arthralgias/joint pain, no b ack pain, no swelling in the extremities Integumentary: Skin: no abnormal mole, no j aundice, no rashes, no laceration Neurologic: Neurologic: no loss of consc iousness, no weakness, no numbness, no seizures, no di zziness, no migraines, no headaches, no tremor Psychiatric: Psych: no depression, no sle ep disturbances, feeling safe in a relationship, no alcohol abu se, no anxiety, no hallucinations, no suicidal thoughts Endocrine: Endocrine: no fatigue Hematologic/Lymphatic: Hematologic/Lymphatic no swo llen glands, no bruising, no excessive bleeding Allergic/Immunologic: Allergy/Immunologic: no runn y nose, no sinus pressure, no itching, no hives, no freque nt sneezing Physical Exam Telemedicine/Virtual Visit Reported By: Patient Constitutional: Level of Distress: NAD Psychiatric: Insight: good judgement. Men symone Status: active and alert, normal mood"
--- OUTSIDE RECORDS SUMMARY | 2019-11-26 20:39 | XMS REPORT ---
[...] Status Dosage System Date Date Breo Ellipta [facility] [id number] 100-25 MCG/INH Active 1 puff Inhalation Once a day Singulair ND 17281699808 10 MG Active TAKE 1 TABLET BY MOUTH EVERY DAY Neomycin-Polymy ND 47798947052 3.5-56072-2 Jun 15, Active 4 drops jocelyn-HC Otic Three 2020 into times a day affected ear Fluticasone ND 22745430087 50 MCG/ACT Active 1 spr ay in Propionate Nasally Once a each day nostril Claritin ND 07979042699 10 MG Orally Active 1 tabl et Once a day Propranolol HCl ND 74825874295 40 MG Orally Active TAKE 1 twice a day TABLET BY MOUTH TWICE A DAY Lyrica ND 04748748351 75 MG Orally Active 1 capsu le twice a day Results No Known Results Summary Purpose eClinicalWorks Submission
[2019-11-26 21:19] LABS: Absolute Lymphocytes (CBC) 1.2 K/uL (0.7-4.9); Basophils % 1.2 % (0-1.3); Hematocrit 42.3 % (39.6-49.0); Lymphocytes % 19.9 % (15.3-44.8); MPV 8.1 fL (7.6-11.3); Protime INR 1.27; RBC Red Blood Cell Count 4.51 M/uL (4.33-5.43)
--- NOTE | 2019-11-26 21:25 | RAD REPORT ---
EXAM DESCRIPTION: RAD - Chest Single View - 11/26/2019 9:16 pm CLINICAL HISTORY: CHEST PAIN Chest pain. COMPARISON: Chest Single View dated 04/20/2018; Chest Single View dated 08/01/2017; CHEST SINGLE VIEW dated 05/15/2015; CHEST PA AND LAT 2 VIEW dated 03/19/2012 FINDINGS: Portable technique limits examination quality. The lungs are grossly clear. The heart is normal in size. No displaced fractures. IMPRESSION: No acute intrathoracic process suspected.
[2019-11-26 21:36] LABS: ALT/SGPT 33 U/L (12-78); AST/SGOT 32 U/L (15-37); Albumin 3.5 g/dL (3.4-5.0); Alkaline Phosphatase 73 U/L (45-117); BUN Blood Urea Nitrogen 14 mg/dL (7-18); Bicarbonate 26 mmol/L (21-32); Bilirubin Direct 0.2 mg/dL (0-0.2); Bilirubin Total 0.6 mg/dL (0.2-1.0); Glucose Level 108 mg/dL (74-106); Magnesium 2.3 mg/dL (1.8-2.4); NT PRO-BNP 47 pg/mL (<125); Potassium 3.8 mmol/L (3.5-5.1); Protein, Total 7.8 g/dL (6.4-8.2); Sodium Level 140 mmol/L (136-145); Troponin (Emerg Dept Use Only) < 0.02 ng/mL (0.0-0.045)
--- NOTE | 2019-11-26 22:59 | ER ---
Nurse's Notes [facility] Name: Winston Garcia Age: 64 yrs Sex: Male : 1955 Arrival Date: 11/26/2019 Time: 20:49 Bed 2 Private MD: Diagnosis: Other chest pain Presentation: 11/25 20:50 Chief complaint: Patient states: Diarrhea for 1 week. CP and SOB intermittent for 5 ll1 days. Slight cough and SOB. Coronavirus screen: Surgical mask placed on patient. Patient moved to private room, placed in contact and droplet isolation with eye protection until further assessment. Patient reports a cough. Patient reports shortness of breath or difficulty breathing. Patient denies measured and/or subjective temperature greater than 100.4F prior to today's visit. Patient denies travel on a cruise ship or to a country the [facility] currently lists as an affected area. Patient denies contact with known and/or suspected case of COVID-19. Ebola Screen: Patient denies travel to an Ebola-affected area in the 21 days before illness onset. Initial Sepsis Screen: Does the patient meet any 2 criteria? HR > 90 bpm. No. Patient's initial sepsis screen is negative. Risk Assessment: Do you want to hurt yourself or someone else? Patient reports no desire to harm self or others. Onset of symptoms was November 19, 2019. 20:50 Method Of Arrival: Ambulatory ll1 20:50 Acuity: LOBITO 3 ll1 21:08 Initial Sepsis Screen: Does the patient have a suspected source of infection? No. rv Patient's initial sepsis screen is negative. Historical: - Allergies: 20:52 No Known Drug Allergies; ll1 - PMHx: 20:52 Hypertension; brain aneurysm; ll1 - PSHx: 20:52 cyst removed from top of head; BRAIN SX FOR ANEURYSM; ll1 - Immunization history:: Flu vaccine is up to date. - Social history:: Smoking status: Patient denies any tobacco usage or history of. Patient/guardian denies using alcohol, street drugs, tobacco products. Screenin:07 Abuse screen: Denies threats or abuse. Denies injuries from another. Nutritional rv screening: No deficits noted. Tuberculosis screening: No symptoms or risk factors identified. Fall Risk None identified. Assessment: 21:06 General: Appears comfortable, Behavior is calm, cooperative. Pain: Complains of pain in rv chest Pain radiates to left arm Pain currently is 4 out of 10 on a pain scale. Quality of pain is described as sharp, Pain began 7 DAYS AGO. Neuro: Level of Consciousness is awake, alert, obeys commands, Oriented to person, place, time, situation. Cardiovascular: Patient's skin is warm and dry. Respiratory: Airway is patent Respiratory effort is even, unlabored, Respiratory pattern is regular, Breath sounds are clear bilaterally. GI: Reports diarrhea, Patient currently denies abdominal pain. Derm: Skin is intact. 21:44 Reassessment: Patient and/or family updated on plan of care and expected duration. Pain rv level reassessed. Patient is alert, oriented x 3, equal unlabored respirations, skin warm/dry/pink. 23:10 Reassessment: Patient and/or family updated on plan of care and expected duration. Pain rv level reassessed. Patient is alert, oriented x 3, equal unlabored respirations, skin warm/dry/pink. PATIENT UPDATED ON THE TEST RESULTS AND PLAN OF CARE. Vital Signs: 20:50 BP 136 / 82; Pulse 88; Resp 18; Temp 99.0; Pulse Ox 95% ; Weight 133.81 kg; Height 6 ll1 ft. 4 in. (193.04 cm); Pain 4/10; 21:00 BP 101 / 85; Pulse 82; Resp 17; Pulse Ox 100% on R/A; rv 21:44 BP 116 / 88; Pulse 81; Resp 15; Pulse Ox 98% on R/A; rv 22:30 BP 127 / 86; Pulse 81; Resp 17; Pulse Ox 96% on R/A; rv 23:00 BP 123 / 83; Pulse 79; Resp 17; Pulse Ox 97% on R/A; rv 11/26 00:28 BP 116 / 64; Pulse 75; Resp 16; Temp 99; Pulse Ox 98% on R/A; rv 11/25 20:50 Body Mass Index 35.91 (133.81 kg, 193.04 cm) ll1 ED Course: 11/25 20:49 Patient arrived in ED. bp1 20:51 Triage completed. ll1 20:52 Arm band placed on. ll1 20:56 Bryant Michelle MD is Attending Physician. tw4 20:57 Ridge Tamayo RN is Primary Nurse. rv 21:06 No provider procedures requiring assistance completed. Inserted saline lock: 18 gauge rv in right antecubital area, using aseptic technique. Blood collected. Patient maintains SpO2 saturation greater than 95% on room air. 21:08 Patient has correct armband on for positive identification. cardiac monitor on. Pulse rv ox on. NIBP on. 21:17 XRAY Chest (1 view) In Process Unspecified. EDMS 22:56 David Venegas MD is Hospitalizing Provider. tw4 11/26 00:29 IV is patent, with fluids infusing freely, with good blood return, Patient admitted, IV rv remains in place. Administered Medications: No medications were administered Outcome: 11/25 22:58 Decision to Hospitalize by Provider. tw11/26 00:28 Admitted to Tele accompanied by nurse, via wheelchair, room 413, with chart, Report rv called to STEVE VELEZ Condition: good Instructed on the need for admit. 00:29 Patient left the ED. rv Signatures: Dispatcher [employer] EDMS Bryant Michelle MD MD tw4 Ridge Tamayo RN RN rv Ashlee Garza RN RN ll1 Misti Douglas bp1
--- NOTE | 2019-11-26 22:59 | EDPHYS ---
Physician Documentation [facility] Name: Winston Garcia Age: 64 yrs Sex: Male : 1955 Arrival Date: 11/26/2019 Time: 20:49 Bed 2 Private MD: ED Physician Bryant Michelle HPI: 11/25 23:05 This 64 yrs old Male presents to ER via Ambulatory with complaints of Chest tw4 Pain, Diarrhea. 23:05 The patient or guardian reports chest pain that is located primarily in the anterior tw4 chest wall. The pain does not radiate. Associated signs and symptoms: 1 week(s) ago, Pertinent positives: shortness of breath. The chest pain is described as sharp. Duration: The patient or guardian reports multiple episodes, that are intermittent, that wax and wane. Modifying factors: The symptoms are alleviated by nothing. the symptoms are aggravated by nothing. Severity of pain: At its worst the pain was moderate in the emergency department the pain is unchanged. The patient has not experienced similar symptoms in the past. Historical: - Allergies: 20:52 No Known Drug Allergies; ll1 - PMHx: 20:52 Hypertension; brain aneurysm; ll1 - PSHx: 20:52 cyst removed from top of head; BRAIN SX FOR ANEURYSM; ll1 - Immunization history:: Flu vaccine is up to date. - Social history:: Smoking status: Patient denies any tobacco usage or history of. Patient/guardian denies using alcohol, street drugs, tobacco products. ROS: 23:05 Constitutional: Negative for fever, chills, and weight loss, Respiratory: Negative for tw4 shortness of breath, cough, wheezing, and pleuritic chest pain. 23:05 Back: Negative for injury and pain, MS/Extremity: Negative for injury and deformity, Skin: Negative for injury, rash, and discoloration, Neuro: Negative for headache, weakness, numbness, tingling, and seizure. 23:05 Cardiovascular: Positive for chest pain, Negative for edema, orthopnea, palpitations. 23:05 Abdomen/GI: Positive for diarrhea, Negative for abdominal pain, nausea and vomiting, nausea, vomiting, and diarrhea, nausea, vomiting, abdominal cramps, abdominal distension. Exam: 23:05 Constitutional: This is a well developed, well nourished patient who is awake, alert, tw4 and in no acute distress. Head/Face: Normocephalic, atraumatic. Chest/axilla: Normal chest wall appearance and motion. Nontender with no deformity. No lesions are appreciated. Cardiovascular: Regular rate and rhythm with a normal S1 and S2. No gallops, murmurs, or rubs. Normal PMI, no JVD. No pulse deficits. Respiratory: Lungs have equal breath sounds bilaterally, clear to auscultation and percussion. No rales, rhonchi or wheezes noted. No increased work of breathing, no retractions or nasal flaring. Abdomen/GI: Soft, non-tender, with normal bowel sounds. No distension or tympany. No guarding or rebound. No evidence of tenderness throughout. Back: No spinal tenderness. No costovertebral tenderness. Full range of motion. MS/ Extremity: Pulses equal, no cyanosis. Neurovascular intact. Full, normal range of motion. Neuro: Awake and alert, GCS 15, oriented to person, place, time, and situation. Cranial nerves II-XII grossly intact. Motor strength 5/5 in all extremities. Sensory grossly intact. Cerebellar exam normal. Normal gait. Vital Signs: 20:50 BP 136 / 82; Pulse 88; Resp 18; Temp 99.0; Pulse Ox 95% ; Weight 133.81 kg; Height 6 ll1 ft. 4 in. (193.04 cm); Pain 4/10; 21:00 BP 101 / 85; Pulse 82; Resp 17; Pulse Ox 100% on R/A; rv 21:44 BP 116 / 88; Pulse 81; Resp 15; Pulse Ox 98% on R/A; rv 22:30 BP 127 / 86; Pulse 81; Resp 17; Pulse Ox 96% on R/A; rv 23:00 BP 123 / 83; Pulse 79; Resp 17; Pulse Ox 97% on R/A; rv 11/26 00:28 BP 116 / 64; Pulse 75; Resp 16; Temp 99; Pulse Ox 98% on R/A; rv 11/25 20:50 Body Mass Index 35.91 (133.81 kg, 193.04 cm) ll1 MDM: 11/25 22:22 Patient medically screened. tw4 23:07 HEART Score: History: Moderately Suspicious (1), ECG: Non specific repolarization tw4 disturbance / LBTB / PM (1), Age: > or = 65 years (2), Risk Factors: 1 or 2 risk factors (1), Troponin: < or = 1 x Normal Limit (0), Total Score = 5. Data reviewed: vital signs, nurses notes. Counseling: I had a detailed discussion with the patient and/or guardian regarding: the historical points, exam findings, and any diagnostic results supporting the discharge/admit diagnosis. 23:41 Differential diagnosis: acute myocardial infarction, Cholelithiasis peptic ulcer tw4 disease, pericarditis, pneumonia, pulmonary embolus, thoracic aortic disection. The patient was given aspirin in the Emergency Department. Data interpreted: Pulse oximetry: Interpretation: normal. Physician consultation: David Venegas MD regarding admission, to the telemetry unit. patient's condition, and will see patient in inpatient room. 11/25 20:55 Order name: Basic Metabolic Panel; Complete Time: 22:20 [facility] 11/25 22:20 Interpretation: Normal except: GLUC 108; GFR 70. 11/25 20:55 Order name: CBC with Diff; Complete Time: 22:20 11/25 22:20 Interpretation: Within normal limits. 11/25 20:55 Order name: LFT's; Complete Time: 22:20 [facility] 11/25 22:20 Interpretation: Normal except: GLOB 4.3; A/G 0.8. 11/25 20:55 Order name: Magnesium; Complete Time: 22:20 [facility] 11/25 22:20 Interpretation: Within normal limits: MG 2.3. 11/25 20:55 Order name: NT PRO-BNP; Complete Time: 22:20 [facility] 11/25 22:20 Interpretation: Within normal limits: NT PRO-BNP 47. 11/25 20:55 Order name: PT-INR; Complete Time: 22:20 [facility] 11/25 22:20 Interpretation: Normal except: PT 14.9. 11/25 20:55 Order name: Troponin (emerg Dept Use Only); Complete Time: 22:20 [facility] 11/25 22:20 Interpretation: Within normal limits: TROPED < 0.02. 11/25 23:44 Order name: Basic Metabolic Panel [facility] 11/25 23:44 Order name: Basic Metabolic Panel [facility] 11/25 23:45 Order name: CBC with Automated Diff [facility] 11/25 23:45 Order name: CBC with Automated Diff [facility] 11/25 23:45 Order name: Lipid Profile [facility] 11/25 23:45 Order name: Lipid Profile [facility] 11/25 23:45 Order name: Troponin I [facility] 11/25 20:55 Order name: XRAY Chest (1 view); Complete Time: 22:20 tw4 11/25 20:55 Order name: EKG; Complete Time: 20:56 tw4 11/25 20:55 Order name: Cardiac monitoring; Complete Time: 21:08 tw4 11/25 20:55 Order name: EKG - Nurse/Tech; Complete Time: 21:08 tw4 11/25 20:55 Order name: IV Saline Lock; Complete Time: 21:08 tw4 11/25 20:55 Order name: Labs collected and sent; Complete Time: 21:08 tw4 11/25 20:55 Order name: O2 Per Protocol; Complete Time: 21:08 tw4 11/25 20:55 Order name: O2 Sat Monitoring; Complete Time: 21:08 tw4 11/25 23:44 Order name: CONS Physician Consult [facility] 11/25 23:44 Order name: Heart Healthy [facility] 11/25 23:44 Order name: Echo with Doppler [facility] 11/25 23:44 Order name: EKG Electrocardiogram [facility] 11/25 23:44 Order name: EKG Electrocardiogram [facility] 11/25 23:45 Order name: Troponin I [facility] 11/25 23:45 Order name: Troponin I [facility] 11/25 23:53 Order name: COVID-19 sg EC:07 Rhythm is regular. QRS [place] is Normal. VT interval is normal. QRS interval is normal. tw4 QT interval is normal. No Q waves. T waves are Normal. No ST changes noted. Clinical impression: Normal ECG. Interpreted by me. Reviewed by me. Administered Medications: No medications were administered Disposition: 11/26/19 22:58 Hospitalization ordered by David Venegas for Observation. Preliminary diagnosis is Other chest pain. - Bed requested for Telemetry/MedSurg (observation). - Status is Observation. rv - Condition is Stable. - Problem is new. - Symptoms have improved. Signatures: Dispatcher [employer] [facility] Izabela Rodriguez RN RN mw Wadley, Terrence, MD MD tw4 Ridge Tamayo, RN RN rv Ashlee Garza RN RN ll1 Corrections: (The following items were deleted from the chart) 23:34 22:58 Hospitalization Ordered by David Venegas MD for Observation. Preliminary mw diagnosis is Other chest pain. Bed requested for Telemetry/MedSurg (observation). Status is Observation. Condition is Stable. Problem is new. Symptoms have improved. tw4 23:53 23:34 11/26/2019 22:58 Hospitalization Ordered by David Venegas MD for Observation. Preliminary diagnosis is Other chest pain. Bed requested for Telemetry/MedSurg (observation). Status is Observation. Condition is Stable. Problem is new. Symptoms have improved. 11/26 00:29 11/25 23:53 11/26/2019 22:58 Hospitalization Ordered by David Venegas MD for rv Observation. Preliminary diagnosis is Other chest pain. Bed requested for Telemetry/MedSurg (observation). Status is Observation. Condition is Stable. Problem is new. Symptoms have improved.
[2019-11-26] MEDS ORDERED: ALPRAZOLAM 0.25 MG TABLET PO PRN (23:39)
[2019-11-26] MEDS ORDERED: ACETAMINOPHEN 500 MG TAB PO PRN (23:39)
[2019-11-27 03:26] VITALS: BMI 36.8
--- NOTE | 2019-11-27 05:54 | EKG ---
Test Date: 2019-11-26 Test Time: 20:59:33 Radiographic Technologist: SOPHIA MEASUREMENT RESULTS: Intervals: Rate: 84 MD: 144 QRSD: 88 QT: 376 QTc: 444 [place]: P: 17 MD: 144 QRS: 22 T: -1 INTERPRETIVE STATEMENTS: Normal sinus rhythm Normal ECG Compared to ECG 04/20/2018 12:51:59 No significant changes Electronically Signed On 11-27-19 05:53:26 CDT by Javon Evans
[2019-11-27] MEDS ORDERED: HYDROCORTISONE SUC 100 MG INJ IV ONE (05:57)
[2019-11-27] MEDS ORDERED: METOPROLOL TAR 50 MG TAB PO SCH (06:00)
[2019-11-27 06:40] LABS: Absolute Lymphocytes (CBC) 1.2 K/uL (0.7-4.9); Basophils % 0.5 % (0-1.3); Hematocrit 39.4 % (39.6-49.0); Lymphocytes % 26.8 % (15.3-44.8); MPV 8.5 fL (7.6-11.3); RBC Red Blood Cell Count 4.25 M/uL (4.33-5.43)
[2019-11-27 06:44] LABS: Potassium 3.7 mmol/L (3.5-5.1)
[2019-11-27] MEDS ORDERED: WATER FOR INJ,STERILE 10 ML ONE (06:48)
[2019-11-27] MEDS ORDERED: ENOXAPARIN 40 MG/0.4 ML SQ SCH (09:00)
[2019-11-27] MEDS ORDERED: ASPIRIN EC 81 MG TAB PO SCH (09:00)
[2019-11-27 12:11] VITALS: BP 150/83; TEMP 97.3; O2SAT 91
--- NOTE | 2019-11-27 15:25 | P.PN ---
Subjective Date of Service: 11/27/19 Physical Examination - Vital Signs Temperature: 97.3 F Blood Pressure: 150/83 Pulse: 64 Respirations: 18 Pulse Ox (%): 91 - Studies Laboratory Data (last 24 hrs) 11/26/19 21:03: PT 14.9 H, INR 1.27 11/26/19 21:03: WBC 5.8, Hgb 14.3, Hct 42.3, Plt Count 187 11/26/19 21:03: Sodium 140, Potassium 3.8, BUN 14, Creatinine 1.07, Glucose 108 H, Magnesium 2.3, Total Bilirubin 0.6, AST 32, ALT 33, Alkaline Phosphatase 73 11/26/19 12:00: Troponin I Cancelled 11/26/19 06:00: Troponin I Cancelled Assessment & Plan Physician Review Additional Text: Patient has been discharged by hospitalist Dr. Venegas. Patient was evaluated for COVID. Patient discharge earlier due to chest pain. Patient seen and evaluated by Cardiology. Patient was positive for COVID. I called to inform the patient. Patient denied any sick contacts. Patient without any significant symptoms including cough, fever, shortness of breath. Patient was provided with CDC recommendations for COVID prior to leaving the hospital. I recommended that he go over CDC recommendations and guidelines. Patient will need to quarantine himself. Health department will likely need to investigate other family members. Will discuss with nursing to make sure health department is informed. Will update retail marketing executive and hospitalist.
--- NOTE | 2019-11-27 16:17 | CON ---
Date of Consultation: 11/27/[address] Venegas on 11/26/2019. I saw the patient on 11/27/2019. Reason For Consultation: Chest pain. History Of Present Illness: Mr. Garcia is a 64-year-old white male with history of hypertension. 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 This was documented by an MRA in 2018. He does weighed 295 pounds. Denied diabetes or dyslipidemia. He cam e in with chest pain that is tender to touch in the anterior chest that has been going on persistentl y for 3 weeks without any nausea, vomiting, diaphoresis, shortness of breath, PND, orthopnea, pedal e jaimee, palpitations, or syncope. The patient denied any trauma. He denied any fever or chills or cou gh. Workup so far include a normal EKG, normal troponin, normal BNP. In 2019, he had a negative car otid. In 2018, he had a normal echo and normal stress test, normal EKG. His pain persists. Past Medical History: As stated above. Allergies: NONE. Review of Systems: Negative. Social History: Negative. Family History: Negative. Medications: At home include Neurontin, Inderal, and Singulair. Physical Examination: General: He weighed 295 pounds, was in mild distress. Normal sinus rhythm. Vital Signs: Stable. Afebrile. HEENT: Negative. Neck: Supple with no bruit. Chest: Clear, but very tender to touch in the anterior wall. No erythema. Chest: Clear to auscultation and percussion. Cardiac: Revealed a regular rhythm and rate. No murmurs, gallops, or rubs. Abdomen: Benign. Extremities: Revealed no clubbing, cyanosis, or edema. Diagnostic Data: As stated earlier. Impression And Plan: I think Mr. Garcia's pain is definitely secondary to costochondritis. This is definitely not a cardiac issue. He does have an echocardiogram that is pending for 11/29/2019, but I certainly would not keep him in the hospital for that. I think he needs to be on anti-inflammatory agent, maybe a short course of prednisone. It would be reasonable for him to do an ultrasound and m ay be a stress test as an outpatient, but I can make arrangement for that later. From my standpoint, he can go home whenever it is okay with Dr. Venegas. TOI/POLINA Voice ID: [id number] Report ID: [id number]
--- NOTE | 2019-11-27 23:41 | P.HP ---
Certification for Inpatient Patient admitted to: Observation With expected LOS: <2 Midnights Patient will require the following post-hospital care: None Practitioner: I am a practitioner with admitting privileges, knowledge of patient current condition, hospital course, and medical plan of care. Services: Services provided to patient in accordance with Admission requirements found in Title 42 Section 412.3 of the Code of Federal Regulations Patient History Date of Service: 11/27/19 Reason for admission: Chest pain rule out acute coronary syndrome History of Present Illness: Patient is a 64-year-old gentleman came to the hospital with chest discomfort. Pain was in the sternal region and had been going on for the last 6-12 hr. It was not improving so he came into the hospital for further evaluation. In the emergency room EKG and troponin did not reveal any acute cardiac abnormalities. Patient had a stress test and an echocardiogram over the last couple years which were normal. No evidence of ischemia was seen on these imaging studies. Patient had a repeat troponin which was negative as well. Cardiology has seen the patient and recommended outpatient follow-up.COVID-19 testing is pending. Patient is to advised to quarantined prior to discharge. He will follow-up with his PCP & arrange for outpatient stress testing. Allergies No Known Drug Allergies Allergy (Verified 05/15/15 12:37) Unknown No Allergy (Uncoded 08/02/17 01:47) Unknown Home Medications: Propranolol [Inderal*] 40 mg PO BID 05/15/15 Montelukast Sodium 10 mg PO DAILY 08/02/17 Aspirin [Aspirin EC 81 MG] 81 mg PO DAILY #30 tablet. 11/27/19 Gabapentin [Neurontin*] 400 mg PO BID 11/27/19 predniSONE [Prednisone*] 20 mg PO BID #6 tab 11/27/19 - Past Medical/Surgical History Has patient received pneumonia vaccine in the past: Yes Diabetic: No -: HTN -: BRAIN ANUERYSMS -: CYST REMOVED FROM TOP OF HEAD -: BRAIN SURGERY FOR ANEURYSMS - Family History Mother Medical History: Cancer Notes: BREAST CANCER - Social History Smoking Status: Former smoker Alcohol use: Yes CD- Drugs: No Caffeine use: Yes Place of Residence: Home Review of Systems 10-point ROS is otherwise unremarkable Physical Examination - Vital Signs Temperature: 97.3 F Blood Pressure: 150/83 Pulse: 64 Respirations: 18 Pulse Ox (%): 91 - Physical Exam General: Alert, In no apparent distress, Oriented x3 HEENT: Atraumatic, PERRLA, Mucous membr. moist/pink, EOMI, Sclerae nonicteric Neck: Supple, 2+ carotid pulse no bruit, No LAD, Without JVD or thyroid abnormality Respiratory: Clear to auscultation bilaterally, Normal air movement Cardiovascular: Regular rate/rhythm, Normal S1 S2, Systolic murmur Gastrointestinal: Normal bowel sounds, Soft and benign, Non-distended, No tenderness Musculoskeletal: No clubbing, No swelling, No tenderness Integumentary: No rashes Neurological: Normal gait, Normal speech, Normal strength at 5/5 x4 extr, Normal tone, Sensation intact, Cranial nerves 3-12 intact, Normal affect Lymphatics: No axilla or inguinal lymphadenopathy - Studies Laboratory Data (last 24 hrs) 11/26/19 12:00: Troponin I Cancelled 11/26/19 06:00: Troponin I Cancelled Assessment & Plan - Problems (Diagnosis) (1) Chest pain, rule out acute myocardial infarction Status: Acute (2) Brain aneurysm Status: Acute - Plan 1. Serial troponins and EKG 2. Cardiology consultation 3. Echocardiogram and stress test if cardiology as an outpatient 4. Anti-platelet therapy, anti coagulation, beta-stefanie, statin, and O2 as needed 5. IV morphine for pain 6. Nitro p.r.n. 7. Quarantine until COVID-19 testing is back Discharge Plan: Home Plan to discharge in: 24 Hours - Advance Directives Does patient have a Living Will: No Does patient have a Durable POA for Healthcare: No - Code Status/Comfort Care Code Status Assessed: Yes Code Status: Full Code Critical Care: No Time Spent Managing PTS Care (In Minutes): 45
--- NOTE | 2019-11-27 23:43 | P.DS ---
Discharge Date: 11/27/19 Disposition: ROUTINE DISCHARGE Discharge Condition: GOOD Reason for Admission: Chest pain rule out acute coronary syndrome Consultations: Cardiology - Problems (1) Chest pain, rule out acute myocardial infarction Status: Acute (2) Brain aneurysm Status: Acute Brief History of Present Illness: Patient is a 64-year-old gentleman came to the hospital with chest discomfort. Pain was in the sternal region and had been going on for the last 6-12 hr. It was not improving so he came into the hospital for further evaluation. In the emergency room EKG and troponin did not reveal any acute cardiac abnormalities. Patient had a stress test and an echocardiogram over the last couple years which were normal. No evidence of ischemia was seen on these imaging studies. Patient had a repeat troponin which was negative as well. Cardiology has seen the patient and recommended outpatient follow-up.COVID-19 testing is pending. Patient is to advised to quarantined prior to discharge. He will follow-up with his PCP & arrange for outpatient stress testing. Hospital Course: Patient was ruled out for acute coronary syndrome. Troponins and EKG were negative. Patient will need outpatient follow-up. COVID-19 testing will also need to be confirmed over the next few hr. Patient needs to quarantine until testing is completed. Vital Signs/Physical Exam: Temp Pulse Resp BP Pulse Ox 97.3 F 64 18 150/83 H 91 11/27/19 23:42 11/27/19 23:42 11/27/19 23:42 11/27/19 23:42 11/27/19 23:42 General: Alert, In no apparent distress, Oriented x3 Laboratory Data at Discharge: WBC 4.5 K/uL (4.3-10.9) D 11/27/19 05:25 Hgb 13.4 g/dL (13.6-17.9) L 11/27/19 05:25 Hct 39.4 % (39.6-49.0) L 11/27/19 05:25 Plt Count 171 K/uL (152-406) 11/27/19 05:25 PT 14.9 SECONDS (9.5-12.5) H 11/26/19 21:03 INR 1.27 11/26/19 21:03 Sodium 142 mmol/L (136-145) 11/27/19 05:25 Potassium 3.7 mmol/L (3.5-5.1) 11/27/19 05:25 BUN 13 mg/dL (7-18) 11/27/19 05:25 Creatinine 0.97 mg/dL (0.55-1.3) 11/27/19 05:25 Glucose 94 mg/dL (74-106) 11/27/19 05:25 Magnesium 2.3 mg/dL (1.8-2.4) 11/26/19 21:03 Total Bilirubin 0.6 mg/dL (0.2-1.0) 11/26/19 21:03 AST 32 U/L (15-37) 11/26/19 21:03 ALT 33 U/L (12-78) 11/26/19 21:03 Alkaline Phosphatase 73 U/L (45-117) 11/26/19 21:03 Troponin I < 0.02 ng/mL (0.0-0.045) 11/27/19 11:58 Triglycerides 49 mg/dL (<150) 11/27/19 05:25 Cholesterol 65 mg/dL (<200) 11/27/19 05:25 HDL Cholesterol 23 mg/dL (40-60) L 11/27/19 05:25 Cholesterol/HDL Ratio 2.83 11/27/19 05:25 Home Medications: Propranolol [Inderal*] 40 mg PO BID 05/15/15 Montelukast Sodium 10 mg PO DAILY 08/02/17 Aspirin [Aspirin EC 81 MG] 81 mg PO DAILY #30 tablet. 11/27/19 Gabapentin [Neurontin*] 400 mg PO BID 11/27/19 predniSONE [Prednisone*] 20 mg PO BID #6 tab 11/27/19 New Medications: Aspirin [Aspirin EC 81 MG] 81 mg PO DAILY #30 tablet. predniSONE [Prednisone*] 20 mg PO BID #6 tab Patient Discharge Instructions: OK TO DC IV AND DC HOME. FOLLOW-UP WITH PRIMARY CARE PROVIDER IN 1-2 WEEKS. FOLLOW-UP WITH CARDIOLOGY on Friday to schedule for outpatient stress test and echocardiogram. RETURN TO THE ER IF symptoms worsen. CALL DR. FRANCIS AT [phone] IF ANY QUESTIONS REGARDING HOSPITAL STAY. PLEASE CALL THE FLOOR AT [phone] IF ANY MEDICATION OR NURSING QUESTIONS. 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
== END 2019-11-27 14:15 | disposition home or self-care (01) ==
LOC: ER 20:35 → ERHOLD 23:59 → 4TH 11-27 00:22
PROVIDERS: ADMIT Hospitalist; ATTEND Hospitalist
DX: R07.89 Other chest pain (principal); M94.0 Chondrocostal junction syndrome [Tietze]; U07.1 COVID-19; R07.9 Chest pain, unspecified; I10 Essential (primary) hypertension; Z79.82 Long term (current) use of aspirin; Z79.899 Other long term (current) drug therapy; Z87.891 Personal history of nicotine dependence; E66.9 Obesity, unspecified; Z86.79 Personal history of other diseases of the circulatory system
CPT/HCPCS: 93005; 85025 ×2; 80048 ×2; 36415 ×2; 83735; 85610; 80061; 80076; 84484 ×3; 83880; 71045; 99285; U0002; J1650; J1720; G0378 ×2

== ENCOUNTER 2020-08-08 03:24 | Emergency (ER) | payer OTHER ==
--- OUTSIDE RECORDS SUMMARY | 2020-08-08 03:27 | XMS REPORT | Continuity of Care Document ---
:1955 Author Organization [facility] t Address 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 prostatic Prostatic 6-06 Fami ly hyperplasi Hyperplasi 00:00: Pr actic a a 00 e Hypertensi Hypertensi Problem Active [facility] ve ve 6-03 Family disorder Disorder 00:00: Practi c 00 e Seasonal Seasonal Problem Active Boo ge allergy Allergy 6-03 Family 00:00: Practic 00 e Generalize Generalize Problem Active [facility] d headache d Headache 6-03 Fa jose 00:00: Practic 00 e Chronic Problem Active 2014-062020-07-29 Taj hayden headache 0-08 22:15:32 l disorder Chronic 00:00: Mary nn (disorder) headache 00 disorder (disorder) Active 03/16/2015 Problem 07/29/2020 [facility] Essential Problem Active 2020-07-29 Me moria hypertensi 4-10 22:15:32 l on 00:00: Abad (disorder) Essential 00 hypertensi on (disorder) Active 09/16/2014 [facility] Active 2020-07-29 Taj hayden and 4-10 22:15:32 l collapse Syncope 00:00: Mary nn (disorder) and 00 collapse (disorder) Active 09/16/2014 Problem 07/29/2020 [facility] Subarachno Problem Active 2020-07-29 M emoria id 22:15:32 l hemorrhage Piero n (disorder) Subarachno id hemorrhage (disorder) Active Problem 07/29/2020 Data migrated from [employer] on 01/31/15. [facility] Headache Problem Active 2020-07-29 Mem oria (finding) 22:15:32 l Headache Piero n (finding) Active Problem 07/29/2020 [facility] History of Problem Active 2020-07-29 M emoria surgery 22:15:32 l for History [place] cerebral of surgery aneurysm for (situation cerebral ) aneurysm (situation ) Active Problem 07/29/2020 [facility] Lumbar Problem Active 2020-07-29 Memor ia radiculopa 22:15:32 l thy Lumbar [place] (disorder) radiculopa thy (disorder) Active Problem 07/29/2020 [facility] Allergies, Adverse Reactions, Alerts Allergy Allergy Status Severity Reaction(s) Onset Inactive Treating Comm ents Source Name Type Date Date Clinician No Known No Known Active Memori a Medicati Medicati l on on Abad Allergie Allergie s s Social History Smoking Status Start Date Stop Date Source Former Smoker [place] Family P [facility] Social History [facility] Medications Ordered Filled Start Stop Current Ordering Indication Dosage Frequency Signature Comments Components Source Medication Medication Date Date Medication? 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, Weight cyclobenzap 2019-06 No 0 Memori a rine 10 mg 2-02 Refill(s) l oral tablet 15:28: Piero n 00 gabapentin 2019- Yes 400 mg = 1 M emoria 400 MG Oral 8-28 cap, PO, l Capsule 14:31: BID, # 60 Mary nn 00 cap, 4 Refill(s), [facility]: [id number], 187.96, cm, 02/04/20 9:16:00 CDT, Height, 140.909, kg, 02/04/20 9:16:00 CDT, Weight gabapentin Yes 400 mg = 1 M emoria 400 MG Oral 2-28 cap, PO, l Capsule 15:12: BID, # 60 Mary nn 00 cap, 4 Refill(s), [facility]acy: [facility] #[id number] Neomycin-Po Neomycin-Po Yes Na Alford [address] [facility] lymyxin-HC lymyxin-HC 1-07 into Malissa es - 00:00: affected Memoria 00 ear l [facility] gabapentin 2018- No 300 mg = 1 M emoria 300 MG Oral 2-17 cap, PO, l Capsule 22:32: BID, # 60 Mary nn 00 cap, 3 Refill(s), Pharmacy: [facility] #[id number] pregabalin 2019- Yes 75 mg = 1 Me moria 75 MG Oral 1-25 cap, PO, l Capsule 15:17: BID, # 60 Mary nn [Lyrica] 29 cap, 3 Refill(s) topiramate 2019 Yes 100 mg = 1 M emoria 100 mg oral 0-11 tab, PO, l tablet 15:16: Bedtime, # Mary nn 10 90 tab, 3 Refill(s), [facility]acy: [facility] #[id number] pregabalin 2019- Yes 75 mg = 1 Me moria 75 MG Oral 0-11 cap, PO, l Capsule 15:16: Daily, # Piero n [Lyrica] 00 30 cap, 2 Refill(s) Breo Breo 2020- No Na Alford [address] [facility] Ell[facility] 2-25 06-06 [facility] Memoria 00 :00 l [facility] topiramate 2018- No 100 mg = 1 M emoria 100 mg oral 0-15 tab, PO, l tablet 19:36: BID, # 180 Mary nn 08 tab, 3 Refill(s), Pharmacy: [facility] #[id number] topiramate 2017-06 No 100 mg = 1 M emoria 100 mg oral 0-12 tab, PO, l tablet 15:28: BID, X 90 Piero n 00 day, # 180 tab, 3 Refill(s), Pharmacy: [facility] #[id number] topiramate No See Memoria 50 mg oral 7-20 Instructio l tablet 00:01: ns, # 180 Piero n 41 tab, Refill(s) 2, TAKE 1 TABLET BY MOUTH TWICE A DAY, Pharmacy: [facility] #[id number] Hydrochloro 2017-0 Yes PO, Daily, Memoria thiazide 3-15 0 l 19:55: Refill(s) Abad 00 tramadol Yes 50 mg = 1 Taj hayden hydrochlori 3-15 tab, PO, l de 50 MG 19:55: Q4H, 0 [place] Oral Tablet 00 Refill(s) Fluticasone Yes 1 spray, Me moria propionate 3-15 NASAL, l 0.05 19:55: Daily, 0 Abad MG/ACTUAT 00 Refill(s) Metered Dose Nasal Dexter [Flonase] topiramate No 50 mg = 1 Me moria 50 MG Oral 3-15 tab, PO, l Tablet 19:55: BID, # 60 Piero n [Topamax] 00 tab, 0 Refill(s) gabapentin gabapentin No 1capsul BID gabapentin [facility] 400 mg 400 mg e(s) 400 mg Family capsule capsule capsule Practi c Take 1 Take 1 Take 1 e capsule capsule capsule twice a day twice a day twice a by oral by oral day by route. route. oral route. montelukast montelukast No 1 Q1D montelukas [place] 10 mg 10 mg t 10 mg [...] route. tadalafil tadalafil No [address] [facility] 10 mg 10 mg 10 mg Family tablet Take tablet Take tablet Practic 1 tablet 1 tablet Take 1 e every day every day tablet by oral by oral every day route. route. by oral route. tamsulosin tamsulosin No 1capsul Q1D tamsulosin [facility] 0.4 mg 0.4 mg e(s) 0.4 mg Family capsule capsule capsule Practi c Take 1 Take 1 Take 1 e capsule capsule capsule every day every day every day by oral by oral by oral route. route. route. Fluticasone Fluticasone Yes Na Alford [address] [facility] Propionate Propionate each Malissa es - nostril Memoria [facility] Singulair Singulair Yes Na Alford TAKE [address] [facility] TABLET BY [facility] - MOUTH Memoria EVERY DAY [facility] Propranolol Propranolol Yes Na Alford TAKE [address] [facility] HCl HCl TABLET BY [facility] - MOUTH Memoria TWICE A l DAY [facility] Lyrica Lyrica Yes Na Alford [address] [facility] Claritin Claritin Na Alford [address] [facility] [facility] 11-12 [facility] - 00:00 Memoria :00 [facility] Immunizations Ordered Filled Immunization Date Status Comments [facility] e Immunization Name Name Afluria single dose Afluria single dose 2019-02-[address] [facility] 00:[facility]00 [facility] Vital Signs Vital Name Observation Time Observation Value Comments Source Height 2019-12-21 00:00:00 76 [in_i] [facility] Height 2019-11-10 00:00:00 76 [in_i] [facility] BMI (Body Mass 2019-11-10 00:00:00 36.5 kg/m2 Vill e Family Index) Practice Body Weight 2019-11-10 00:00:00 300 [lb_av] [facility] Systolic (mm Hg) 2020-06-06 15:05:00 Taj Melgoza Diastolic (mm Hg) 2020-06-06 15:05:00 Paul eMlgoza Heart Rate 2020-06-06 15:05:00 [facility] Rate 2020-06-06 15:05:00 Damion al Abad Height 2020-06-06 15:05:00 190.5 cm [facility] [place] Weight 2020-06-06 15:05:00 [facility] [place] BMI Calculated 2020-06-06 15:05:00 Memori al Abad Systolic (mm Hg) 2020-05-10 15:00:00 Taj rial Abad Diastolic (mm Hg) 2020-05-10 15:00:00 Mem orial [place] Heart Rate 2020-05-10 15:00:00 [facility] [place] Respitory Rate 2020-05-10 15:00:00 Memori al Abad Height 2020-05-10 15:00:00 185.42 cm [facility] Abad Weight 2020-05-10 15:00:00 [facility] [place] BMI Calculated 2020-05-10 15:00:00 Memori al Abad Systolic (mm Hg) 2020-02-04 14:16:00 Taj rial Abad Diastolic (mm Hg) 2020-02-04 14:16:00 Mem orial [place] Heart Rate 2020-02-04 14:16:00 [facility] Abad Respitory Rate 2020-02-04 14:16:00 [facility] [place] Height 2020-02-04 14:16:00 187.96 cm [facility] Abad Weight 2020-02-04 14:16:00 [facility] Abad BMI Calculated 2020-02-04 14:16:00 [facility] [place] Systolic (mm Hg) 2019-08-06 14:55:00 Taj rial [place] Diastolic (mm Hg) 2019-08-06 14:55:00 Mem orial [place] Heart Rate 2019-08-06 14:55:00 [facility] Abad Respitory Rate 2019-08-06 14:55:00 Mem[facility] [place] Height 2019-08-06 14:55:00 190.5 cm [facility] Abad Weight 2019-08-06 14:55:00 [facility] [place] BMI Calculated 2019-08-06 14:55:00 [facility] [place] Systolic (mm Hg) 2019-05-03 15:05:00 Taj rial [place] Diastolic (mm Hg) 2019-05-03 15:05:00 Mem orial [place] Heart Rate 2019-05-03 15:05:00 [facility] [place] Respitory Rate 2019-05-03 15:05:00 Memori al Abad Height 2019-05-03 15:05:00 190.5 cm [facility] [place] Weight 2019-05-03 15:05:00 [facility] [place] BMI Calculated 2019-05-03 15:05:00 Memori al Abad Systolic (mm Hg) 2019-03-19 14:28:00 Taj rial [place] Diastolic (mm Hg) 2019-03-19 14:28:00 Mem orial [place] Heart Rate 2019-03-19 14:28:00 [facility] Abad Respitory Rate 2019-03-19 14:28:00 Memori al Abad Height 2019-03-19 14:28:00 190.5 cm [facility] Abad Weight 2019-03-19 14:28:00 [facility] Abad BMI Calculated 2019-03-19 14:28:00 Memori al Abad Systolic (mm Hg) 2018-03-20 14:54:00 Taj rial Abad Diastolic (mm Hg) 2018-03-20 14:54:00 Mem orial Abad BMI Calculated 2018-03-20 14:54:00 Memori al Abad Height 2018-03-20 14:54:00 190.5 cm [facility] [place] Weight 2018-03-20 14:54:00 [facility] Abad Respitory Rate 2018-03-20 14:54:00 Memori al [place] Heart Rate 2018-03-20 14:54:00 [facility] Abad Procedures This patient has no known procedures. Plan of Care Planned Activity Planned Date Details Comments Source Instructions [facility] Encounters Start End Encounter Admission Attending Care Care Encounter Source Date/Time Date/Time Type Type Clinicians Facility Department ID 2020-07-27 2020-07-27 Outpatient ZEENAT Carmona [id number] 09:00:00 09:00:00 [place] 10 Gideon 2020-07-17 2020-07-17 Outpatient [facility] [id number] [facility] 2020-07-03 2020-07-03 [facility] [id number] 2020-06-06 2020-06-06 Outpatient ZEENAT Carmona [id number] 09:00:00 23:59:59 [place] 09 Gideon 2020-05-10 2020-05-10 Outpatient Krell, MISCHER MISCHER [id number] 09:00:00 23:59:59 [place] 08 [facility] 2020-04-26 2020-04-[facility] [id number]00 [facility] 2020-04-26 2020-04-26 [facility] [id number] [facility]00 [facility] 2020-04-03 2020-04-03 [facility] [id number] [facility]00 [facility] 2020-02-04 2020-02-04 Outpatient Krell, MHMISCHER MHMISCHER [id number] 09:00:00 23:59:59 [place] 06 [facility] 2020-02-04 2020-02-04 Outpatient Mathew, MHMISCHER MHMISCHER [id number] 09:00:00 09:00:00 [place] 05 [facility] 2020-01-03 2020-01-03 [facility] [id number] 09:40:00 09:40:00 [employer] [facility] 2019-12-21 2019-12-21 Marilin [facility] [place] - [id number] V illage 00:00:00 00:00:00 [facility]iels, FRAME TENDER: Medical - Practi c [address] [email or web address] [id number] , Ph. 2019-12-07 2019-12-07 [facility] [id number] 15:11:00 15:11:00 [employer] [facility] Outpati ent [facility] 2019-11-10 2019-11-10 Marilin [facility] [place] - [id number] V illage 00:00:00 00:00:00 [facility] jihan daniels, FRAME TENDER: Medical - Practi c [address] [email or web address] [address], [place] [address] , Ph. 2019-10-04 2019-10-04 [facility] [id number] 09:20:00 09:20:00 t [employer]mp[employer] s - ZIIBRA [facility] 2019-08-23 2019-08-23 [facility] [id number] 09:40:00 09:40:00 t Ampulse s - ZIIBRA [facility] Outpati ent Clinics 2019-08-06 2019-08-06 Outpatient THOMAS CarmonaMISCHER MISCHER [id number] 09:15:00 23:59:59 [place] 04 Gideon 2019-06-15 2019-06-15 [facility] [id number] [address] 08:40:00 08:40:00 t Ampulse s - ZIIBRA [facility] Outpati ent Clinics 2019-05-17 2019-05-17 [facility] [id number] [address] 09:40:00 09:40:00 t [employer] [facility] Outpati ent Clinics 2019-05-03 2019-05-03 Outpatient VANIA CarmonaSCHER MISCHER [id number] 09:00:00 23:59:59 [place] 03 [facility] 2019-04-30 2019-04-30 Outpatient VANIA CarmonaSCHER MISCHER [id number] 10:30:00 10:30:00 [place] 02 Gideon 2019-03-19 2019-03-19 Outpatient VANIA CarmonaSCHER MISCHER [id number] 09:30:00 23:59:59 [place] 01 Gideon 2019-02-15 2019-02-15 [facility] [id number] [facility] 09:40:00 09:40:00 t [employer] [facility] Outpati ent Clinics 2018-12-03 2018-12-03 [facility] [id number] 11:43:00 11:43:00 t Ampulse s - ZIIBRA [facility] Outpati ent Clinics 2018-11-09 2018-11-09 [facility] [id number] 08:40:00 08:40:00 [place] ZIIBRA Luke [facility] - Drive [facility] 2018-08-03 2018-08-03 [facility] [id number] 09:00:00 09:00:00 [place] ZIIBRA Luke s - Drive [facility] 2018-06-22 2018-06-22 [facility] [id number] [address] 16:52:00 16:52:00 [place] [employer] s - Drive [facility] 2018-05-29 2018-05-30 Outpatient MHMISCHER MHMISCHER [id number] 09:25:00 23:59:59 01 2018-05-06 2018-05-06 [facility] [id number] 11:15:00 11:15:00 t [place] [employer] s - Drive [facility] 2018-03-25 2018-03-26 Outpatient MHMISCHER MHMISCHER [id number] 17:33:00 23:59:59 00 2018-03-20 2018-03-20 Outpatient Mathew MHMISCHER MHMISCHER [id number] 09:30:00 23:59:59 [place] Franklyn Meneses 2018-03-09 2018-03-09 [facility] [id number] 16:06:00 16:06:00 [place] [employer] s - Drive [facility] 2018-02-06 2018-02-06 [facility] [id number] 08:30:00 08:30:00 [place] [employer] s - Drive [facility] 2017-11-07 2017-11-07 [facility] [id number] 08:30:00 08:30:00 [place] [employer] s - Drive [facility] Results Test Description Test Time Test Comments Results Result Comments Source ANEMIA STUDY 2019-04-05 [id number] [facility] 15:46:00 CHEM PANEL 2019-04-05 138 [facility] Mary nn 15:46:00 HEMATOLOGY 2019-04-05 6 [facility] 15:46:00 IMMUNOLOGY 2019-04-05 7.0 [facility] 15:46:00
[2020-08-08 04:10] LABS: Absolute Lymphocytes (CBC) 2.1 K/uL (0.7-4.9); Basophils % 1.1 % (0-1.3); Hematocrit 39.2 % (39.6-49.0); Lymphocytes % 30.1 % (15.3-44.8); MPV 8.2 fL (7.6-11.3); RBC Red Blood Cell Count 4.13 M/uL (4.33-5.43)
[2020-08-08] MEDS ORDERED: NA CHLORIDE 0.9% 1,000 ML ONE (04:17)
[2020-08-08] MEDS ORDERED: MORPHINE 4 MG/ML SYR ONE (04:17)
[2020-08-08] MEDS ORDERED: KETOROLAC 30 MG/ML INJ ONE (04:17)
[2020-08-08] MEDS ORDERED: ONDANSETRON 4 MG/2 ML VIAL ONE ×2 (04:17→06:41)
[2020-08-08 04:32] LABS: Albumin 3.5 g/dL (3.4-5.0); Bilirubin Total 0.4 mg/dL (0.2-1.0); Potassium 4.4 mmol/L (3.5-5.1); Protein, Total 7.2 g/dL (6.4-8.2)
[2020-08-08] MEDS ORDERED: DIAZEPAM 5 MG TABLET ONE (05:11)
--- NOTE | 2020-08-08 05:55 | EDPHYS ---
Physician Documentation [facility] Name: Winston Garcia Age: 65 yrs Sex: Male : 1955 Arrival Date: 08/08/2020 Time: 03:27 Bed 7 Private MD: Sanjana Alford ED Physician Ric Vargas HPI: 08/08 03:54 This 65 yrs old Male presents to ER via Wheelchair with complaints of Hip ashlee Pain - Right. 03:54 The patient or guardian reports decreased range of motion, pain. that occurred at home, ashlee outdoors, sustained from a fall, There is no obvious deformity, The patient is able to ambulate with assistance. The patient is able to bear partial body weight. There is no radiation of the patient's discomfort. The complaints affect the right hip, lateral aspect of right thigh and right upper thigh. Onset: The symptoms/episode began/occurred 5 week(s) ago. Modifying factors: The symptoms are alleviated by nothing. Associated signs and symptoms: Loss of consciousness: the patient experienced no loss of consciousness. Severity of symptoms: At their worst the symptoms were moderate, in the emergency department the symptoms are unchanged. The patient has not experienced similar symptoms in the past. Historical: - Allergies: 03:28 No Known Allergies; sg - PMHx: 03:28 brain aneurysm; Hypertension; sg - PSHx: 03:28 cyst removed from top of head; BRAIN SX FOR ANEURYSM; sg - Immunization history:: Adult Immunizations up to date. - Social history:: Smoking status: unknown. - Family history:: not pertinent. ROS: 03:54 Constitutional: Negative for fever, chills, and weight loss, Eyes: Negative for injury, ashlee pain, redness, and discharge, ENT: Negative for injury, pain, and discharge, Neck: Negative for injury, pain, and swelling, Cardiovascular: Negative for chest pain, palpitations, and edema, Respiratory: Negative for shortness of breath, cough, wheezing, and pleuritic chest pain, Abdomen/GI: Negative for abdominal pain, nausea, vomiting, diarrhea, and constipation, Back: Negative for injury and pain, : Negative for injury, bleeding, discharge, and swelling, Skin: Negative for injury, rash, and discoloration, Neuro: Negative for headache, weakness, numbness, tingling, and seizure, Psych: Negative for depression, anxiety, suicide ideation, homicidal ideation, and hallucinations, Allergy/Immunology: Negative for hives, rash, and allergies, Endocrine: Negative for neck swelling, polydipsia, polyuria, polyphagia, and marked weight changes. 03:54 MS/extremity: Positive for decreased range of motion, pain, tenderness, of the pelvis and right leg. Exam: 03:54 Constitutional: This is a well developed, well nourished patient who is awake, alert, ashlee and in no acute distress. Head/Face: Normocephalic, atraumatic. Eyes: Pupils equal round and reactive to light, extra-ocular motions intact. Lids and lashes normal. Conjunctiva and sclera are non-icteric and not injected. Cornea within normal limits. Periorbital areas with no swelling, redness, or edema. ENT: Nares patent. No nasal discharge, no septal abnormalities noted. Tympanic membranes are normal and external auditory canals are clear. Oropharynx with no redness, swelling, or masses, exudates, or evidence of obstruction, uvula midline. Mucous membranes moist. Neck: Trachea midline, no thyromegaly or masses palpated, and no cervical lymphadenopathy. Supple, full range of motion without nuchal rigidity, or vertebral point tenderness. No Meningismus. Chest/axilla: Normal chest wall appearance and motion. Nontender with no deformity. No lesions are appreciated. Cardiovascular: Regular rate and rhythm with a normal S1 and S2. No gallops, murmurs, or rubs. Normal PMI, no JVD. No pulse deficits. Respiratory: Lungs have equal breath sounds bilaterally, clear to auscultation and percussion. No rales, rhonchi or wheezes noted. No increased work of breathing, no retractions or nasal flaring. Abdomen/GI: Soft, non-tender, with normal bowel sounds. No distension or tympany. No guarding or rebound. No evidence of tenderness throughout. Back: No spinal tenderness. No costovertebral tenderness. Full range of motion. Skin: Warm, dry with normal turgor. Normal color with no rashes, no lesions, and no evidence of cellulitis. Neuro: Awake and alert, GCS 15, oriented to person, place, time, and situation. Cranial nerves II-XII grossly intact. Motor strength 5/5 in all extremities. Sensory grossly intact. Cerebellar exam normal. Normal gait. Psych: Awake, alert, with orientation to person, place and time. Behavior, mood, and affect are within normal limits. 03:54 Musculoskeletal/extremity: Extremities: grossly normal except: contusion, decreased ROM, pain, swelling, tenderness, ROM: limited active range of motion due to pain, limited passive range of motion due to pain, Circulation is intact in all extremities. Sensation intact. Compartment Syndrome exam of affected extremity: is normal. Weight bearing: can bear weight with assistance only, OTHERS. Vital Signs: 03:34 BP 152 / 101; Pulse 80; Resp 19; Temp 97.6; Pulse Ox 97% ; Weight 142.88 kg; Height 6 ea ft. 4 in. (193.04 cm); 04:30 BP 146 / 95; Pulse 86; Resp 19; Pulse Ox 98% ; rr5 05:30 BP 149 / 80; Pulse 70; Resp 17; Pulse Ox 99% ; rr5 06:26 BP 131 / 97; Pulse 75; Resp 17; Pulse Ox 98% on R/A; rr5 03:34 Body Mass Index 38.34 (142.88 kg, 193.04 cm) ea MDM: 03:30 Patient medically screened. [facility] 03:57 Differential diagnosis: hip fracture, intertrochanteric fracture, femoral neck ashlee fracture, femoral shaft fracture, bursitis, arthritis, strain. Data reviewed: vital signs, nurses notes, lab test result(s), EKG, radiologic studies, plain films. Data interpreted: nanotechnologist: rate is 80 beats/min, rhythm is regular, Pulse oximetry: on room air is 97 %. Test interpretation: by ED physician or midlevel provider: plain radiologic studies. Counseling: I had a detailed discussion with the patient and/or guardian regarding: the historical points, exam findings, and any diagnostic results supporting the discharge/admit diagnosis, lab results, radiology results, the need for outpatient follow up. 03 03:54 Order name: CBC with Diff; Complete Time: 04:41 [facility] 08/08 03:54 Order name: Comprehensive Metabolic Panel; Complete Time: 04:41 [facility] 08/08 03:54 Order name: Pelvis XRAY [facility] 08/08 03:54 Order name: Hip Right 2 View XRAY [facility] 08/08 03:54 Order name: Femur Right XRAY [facility] 08/08 03:54 Order name: Lumbar Spine (3 Views) XRAY [facility] 08/08 04:43 Order name: CT Pelvis wo Cont: INCLUDE RIGHT HIP [facility] 08/08 04:46 Order name: Misc. Order: FOUR POINT WALKER; Complete Time: 06:07 [facility] Administered Medications: 04:04 Drug: Zofran (Ondansetron) 4 mg Route: IVP; Site: right antecubital; ea 04:51 Follow up: Response: No adverse reaction rr5 04:05 Drug: NS 0.9% 500 ml Route: IV; Rate: bolus; Site: right antecubital; ea 06:21 Follow up: Response: No adverse reaction; IV Status: Completed infusion; IV Intake: ea 500ml 04:05 Drug: NS 0.9% 1000 ml Route: IV; Rate: 125 ml/hr; Site: right antecubital; ea 06:26 Follow up: Response: No adverse reaction; IV Status: Order to discontinue infusion; IV rr5 Intake: 250ml 04:05 Drug: morphine 4 mg Route: IVP; Site: right antecubital; ea 04:52 Follow up: Response: No adverse reaction; Pain is decreased; RASS: Alert and Calm (0) rr5 04:54 Drug: TORadol 30 mg Route: IVP; Site: right antecubital; ea 06:15 Follow up: Response: No adverse reaction ea 04:54 Drug: Valium 5 mg Route: PO; ea 06:14 Follow up: Response: No adverse reaction ea 06:20 Drug: Decadron - Dexamethasone 10 mg Route: IVP; Site: right antecubital; rr5 06:35 Follow up: Response: Medication administered at discharge. rr5 06:22 Drug: Zofran (Ondansetron) 4 mg Route: IVP; Site: right antecubital; rr5 06:35 Follow up: Response: Medication administered at discharge. rr5 06:24 Drug: Dilaudid 1 mg {Note: rass 0.} Route: IVP; Site: right antecubital; rr5 06:35 Follow up: Response: Medication administered at discharge.; RASS: Alert and Calm (0) rr5 Disposition: 08/08/20 05:54 Discharged to Home. Impression: Fall due to bumping against object, Pain in right hip. - Condition is Fair. - Discharge Instructions: Joint Pain, Arthritis, Musculoskeletal Pain, Cryotherapy, Uauz-us-Zqaj, Fall Prevention in the Home, Juff-xg-Ceoa, Hip Pain, Cryotherapy, Joint Pain, Buxf-vt-Srqr. - Prescriptions for Ibuprofen 600 mg Oral Tablet - take 1 tablet by ORAL route every 6 hours As needed take with food; 20 tablet. Tylenol- Codeine #3 300-30 mg Oral Tablet - take 2 tablet by ORAL route every 4-6 hours As needed; 30 tablet. Valium 5 mg Oral Tablet - take 1 tablet by ORAL route every 12 hours As needed; 10 tablet. - Medication Reconciliation Form, Thank You Letter, Antibiotic Education, Prescription Opioid Use form. - Follow up: Sanjana Alford; When: 2 - 3 days; Reason: Recheck today's complaints, Continuance of care, Re-evaluation by your physician. Follow up: Bronson Vasquez; When: 2 - 3 days; Reason: Recheck today's complaints, Re-evaluation by your physician. - Problem is new. - Symptoms have improved. Signatures: Dispatcher [employer] EDMS Bronson White, RN Ric Barreto MD MD cha Antunez, Elena, RN RN ea Roque, Raymond RN RN rr5 Corrections: (The following items were deleted from the chart) 06:36 05:54 08/08/2020 05:54 Discharged to Home. Impression: Fall due to bumping against rr5 object; Pain in right hip. Condition is Fair. Discharge Instructions: Joint Pain, Arthritis, Musculoskeletal Pain, Cryotherapy, Bqkw-if-Demi, Fall Prevention in the Home, Mwrx-nv-Mujs, Hip Pain, Cryotherapy, Joint Pain, Sltj-en-Ptpl. Prescriptions for Ibuprofen 600 mg Oral Tablet - take 1 tablet by ORAL route every 6 hours As needed take with food; 20 tablet, Tylenol-Codeine #3 300-30 mg Oral Tablet - take 2 tablet by ORAL route every 4-6 hours As needed; 30 tablet, Valium 5 mg Oral Tablet - take 1 tablet by ORAL route every 12 hours As needed; 10 tablet. and Forms are Medication Reconciliation Form, Thank You Letter, Antibiotic Education, Prescription Opioid Use. Follow up: Sanjana Alford; When: 2 - 3 days; Reason: Recheck today's complaints, Continuance of care, Re-evaluation by your physician. Follow up: Bronson Vasquez; When: 2 - 3 days; Reason: Recheck today's complaints, Re-evaluation by your physician. Problem is new. Symptoms have improved. ashlee
--- NOTE | 2020-08-08 05:55 | ER ---
Nurse's Notes [facility] Name: Winston Garcia Age: 65 yrs Sex: Male : 1955 Arrival Date: 08/08/2020 Time: 03:27 Bed 7 Private MD: Sanjana Alford Diagnosis: Fall due to bumping against object;Pain in right hip Presentation: 08/08 03:28 Chief complaint: Patient states: When it snowed and Iced and stuff a week or two ago sg now, I had slid down while I was going out of the shed. I fell onto my Right hip, and the pain just hasnt gone away. no other complaints for triage at this time. Coronavirus screen: Client denies travel out of the [place] in the last 14 days. At this time, the client does not indicate any symptoms associated with coronavirus-19. Ebola Screen: Patient negative for fever greater than or equal to 101.5 degrees Fahrenheit, and additional compatible Ebola Virus Disease symptoms Patient denies exposure to infectious person. Patient denies travel to an Ebola-affected area in the 21 days before illness onset. No symptoms or risks identified at this time. Initial Sepsis Screen: Does the patient meet any 2 criteria? No. Patient's initial sepsis screen is negative. Does the patient have a suspected source of infection? No. Patient's initial sepsis screen is negative. Risk Assessment: Do you want to hurt yourself or someone else? Patient reports no desire to harm self or others. Onset of symptoms was August 08, 2020. Care prior to arrival: None. Mechanism of Injury: Fall from standing position. Transition of care: patient was not received from another setting of care. 03:28 Method Of Arrival: Wheelchair sg 03:28 Acuity: LOBITO 4 sg Historical: - Allergies: 03:28 No Known Allergies; sg - PMHx: 03:28 brain aneurysm; Hypertension; sg - PSHx: 03:28 cyst removed from top of head; BRAIN SX FOR ANEURYSM; sg - Immunization history:: Adult Immunizations up to date. - Social history:: Smoking status: unknown. - Family history:: not pertinent. Screenin:35 Abuse screen: Denies threats or abuse. Nutritional screening: No deficits noted. ea Tuberculosis screening: No symptoms or risk factors identified. Fall Risk Fall in past 12 months (25 points). Assessment: 03:36 General: Appears uncomfortable, Behavior is appropriate for age. Pain: Complains of ea pain in right hip. Neuro: Level of Consciousness is awake, alert, obeys commands, Oriented to person, place, time, situation. Respiratory: Airway is patent Respiratory effort is even, unlabored, Respiratory pattern is regular, symmetrical. Derm: Skin is pink, warm \T\ dry. 04:10 Reassessment: Patient and/or family updated on plan of care and expected duration. Pain ea level reassessed. Patient is alert, oriented x 3, equal unlabored respirations, skin warm/dry/pink. Pt taken to xray. 05:15 Reassessment: Patient appears in no apparent distress at this time. Patient is alert, rr5 oriented x 3, equal unlabored respirations, skin warm/dry/pink. back from CTscan. 06:15 Reassessment: Discharge instruction given to patient verbalized the understanding of ea instruction. 06:17 Reassessment: Patient and/or family updated on plan of care and expected duration. Pain ea level reassessed. Patient is alert, oriented x 3, equal unlabored respirations, skin warm/dry/pink. Provider at bedside updating pt on plan of care. Vital Signs: 03:34 BP 152 / 101; Pulse 80; Resp 19; Temp 97.6; Pulse Ox 97% ; Weight 142.88 kg; Height 6 ea ft. 4 in. (193.04 cm); 04:30 BP 146 / 95; Pulse 86; Resp 19; Pulse Ox 98% ; rr5 05:30 BP 149 / 80; Pulse 70; Resp 17; Pulse Ox 99% ; rr5 06:26 BP 131 / 97; Pulse 75; Resp 17; Pulse Ox 98% on R/A; rr5 03:34 Body Mass Index 38.34 (142.88 kg, 193.04 cm) ea ED Course: 03:27 Patient arrived in ED. ag3 03:28 Arm band placed on. sg 03:29 Ric Vargas MD is Attending Physician. ashlee 03:30 Leroy Sampson RN is Primary Nurse. rr5 03:34 Triage completed. sg 03:34 Sanjana Alford MD is Private Physician. sg 03:36 Patient has correct armband on for positive identification. Bed in low position. Call ea light in reach. Side rails up X 1. 04:00 Inserted saline lock: 20 gauge in right antecubital area, using aseptic technique. rr5 Blood collected. 04:55 Pelvis XRAY In Process Unspecified. EDMS 04:56 Hip Right 2 View XRAY In Process Unspecified. EDMS 04:56 Femur Right XRAY In Process Unspecified. EDMS 04:56 Lumbar Spine (3 Views) XRAY In Process Unspecified. EDMS 05:24 CT Pelvis wo Cont: INCLUDE RIGHT HIP In Process Unspecified. EDMS 05:53 Sanjana Alford MD is Referral Physician. ashlee 05:53 Bronson Vasquez MD is Referral Physician. ashlee 06:15 No provider procedures requiring assistance completed. ea 06:27 4 point walker. rr5 06:36 IV discontinued, intact, bleeding controlled, No redness/swelling at site. Pressure rr5 dressing applied. Administered Medications: 04:04 Drug: Zofran (Ondansetron) 4 mg Route: IVP; Site: right antecubital; ea 04:51 Follow up: Response: No adverse reaction rr5 04:05 Drug: NS 0.9% 500 ml Route: IV; Rate: bolus; Site: right antecubital; ea 06:21 Follow up: Response: No adverse reaction; IV Status: Completed infusion; IV Intake: ea 500ml 04:05 Drug: NS 0.9% 1000 ml Route: IV; Rate: 125 ml/hr; Site: right antecubital; ea 06:26 Follow up: Response: No adverse reaction; IV Status: Order to discontinue infusion; IV rr5 Intake: 250ml 04:05 Drug: morphine 4 mg Route: IVP; Site: right antecubital; ea 04:52 Follow up: Response: No adverse reaction; Pain is decreased; RASS: Alert and Calm (0) rr5 04:54 Drug: TORadol 30 mg Route: IVP; Site: right antecubital; ea 06:15 Follow up: Response: No adverse reaction ea 04:54 Drug: Valium 5 mg Route: PO; ea 06:14 Follow up: Response: No adverse reaction ea 06:20 Drug: Decadron - Dexamethasone 10 mg Route: IVP; Site: right antecubital; rr5 06:35 Follow up: Response: Medication administered at discharge. rr5 06:22 Drug: Zofran (Ondansetron) 4 mg Route: IVP; Site: right antecubital; rr5 06:35 Follow up: Response: Medication administered at discharge. rr5 06:24 Drug: Dilaudid 1 mg {Note: rass 0.} Route: IVP; Site: right antecubital; rr5 06:35 Follow up: Response: Medication administered at discharge.; RASS: Alert and Calm (0) rr5 Intake: 06:21 IV: 500ml; Total: 500ml. ea 06:26 IV: 250ml; Total: 750ml. rr5 Outcome: 05:54 Discharge ordered by . ashlee 06:15 Discharge instructions given to patient, Instructed on discharge instructions, follow ea up and referral plans. medication usage, Demonstrated understanding of instructions, follow-up care, medications, Prescriptions given X 3. 06:36 Discharged to home via wheelchair, with family. rr5 06:36 Condition: stable 06:36 Patient left the ED. rr5 Signatures: Dispatcher [employer] EDMS Bronson White, RN Ric Barreto MD MD cha Antunez, Elena, RN Aylin Alarcon ea, Raymond, RN RN rr5
[2020-08-08] MEDS ORDERED: HYDROMORPHONE HCL 1 MG/ML INJ ONE (06:40)
[2020-08-08] MEDS ORDERED: dexAMETHasone 10 MG/ML VIAL ONE (06:41)
--- NOTE | 2020-08-08 08:30 | RAD REPORT ---
EXAM DESCRIPTION: RAD - Lumbar Spine 3 Views - 08/08/2020 4:57 am CLINICAL HISTORY: Back pain FINDINGS: The alignment of the lumbar spine is satisfactory. No fracture or dislocation is seen. Mild spondylosis involves the lumbar spine. Postsurgical changes involve L5-S1
--- NOTE | 2020-08-08 08:34 | RAD REPORT ---
EXAM DESCRIPTION: RAD - Pelvis - 08/08/2020 4:55 am CLINICAL HISTORY: Pelvic pain status post injury FINDINGS: No fracture or dislocation is seen.
--- NOTE | 2020-08-08 08:34 | RAD REPORT ---
EXAM DESCRIPTION: RAD - Hip Right 2 View - 08/08/2020 4:56 am CLINICAL HISTORY: Right hip pain FINDINGS: No fracture or dislocation is seen.
--- NOTE | 2020-08-08 08:35 | RAD REPORT ---
EXAM DESCRIPTION: RAD - Femur Right - 08/08/2020 4:56 am CLINICAL HISTORY: Leg pain FINDINGS: No fracture is seen. No bony abnormality is displayed
--- NOTE | 2020-08-08 08:51 | RAD REPORT ---
EXAM DESCRIPTION: CT - Pelvis Wo Cont - 08/08/2020 6:54 am CLINICAL HISTORY: BLUNT TRAUMA COMPARISON: None. TECHNIQUE: CT PELVIS WITHOUT IV CONTRAST on 08/08/2020 4:43 AM ISOTOPE TECHNICIAN. MIP reconstructions were generated . This exam was performed according to our departmental dose-optimization program, which includes autom ated exposure control, adjustment of the mA and/or kV according to patient size and/or use of iterati ve reconstruction technique. FINDINGS: There is no bowel obstruction. Urinary bladder is unremarkable. There is no free fluid. Skeleton: There are no acute osseous findings. No suspicious bony lesions. There are mild degenerativ e changes of both hips. There is fusion of the L5-S1 disc. IMPRESSION: No definite posttraumatic findings. Electronically signed by: Arpan Nava MD 08/08/2020 5:34 AM ISOTOPE TECHNICIAN Due to temporary technical issues with the PACS/Fluency reporting system, reports are being signed by the in house radiologists without review as a courtesy to insure prompt reporting. The interpreting radiologist is fully responsible for the content of the report.
== END 2020-08-08 06:36 | disposition home or self-care (01) ==
LOC: ER 03:24
DX: M25.551 Pain in right hip (principal); W18.00XA Striking against unspecified object with subsequent fall, initial encounter; Y93.9 Activity, unspecified; Y92.009 Unspecified place in unspecified non-institutional (private) residence as the place of occurrence of the external cause; I10 Essential (primary) hypertension
CPT/HCPCS: 96361; 85025; 36415; 80053; 72192; 72100; 72170; 73502; 73552; 96375; 96374; 99284; J1100; J1170; J7030; J2405 ×2

== ENCOUNTER 2020-10-06 23:18 | Observation (INO) | payer OTHER ==
--- OUTSIDE RECORDS SUMMARY | 2020-10-06 23:22 | XMS REPORT | Continuity of Care Document ---
:1955 Author Organization [facility] t Address [address] [place] [address] Care Team Providers Name Role Phone Gideon [...] Pulmonary disease Disease Benign Benign Problem Active [facility] prostatic Prostatic 6-06 Fami ly hyperplasi Hyperplasi [...] hypertensi on (disorder) Active 09/16/2014 [facility] Problem Active 2020-07-29 Taj hayden and 4-10 22:15:32 l collapse Syncope 00:00: Mary nn (disorder) and 00 collapse (disorder) Active 09/16/2014 [facility] 07/[facility]2020 [facility] Subarachno Problem Active 2020-07-29 M emoria id 22:15:32 l hemorrhage Piero n (disorder) Subarachno id hemorrhage (disorder) Active Problem 07/29/2020 Data migrated from [employer] on 01/31/15. [facility] Headache Problem Active 2020-07-29 Mem oria (finding) 22:15:32 l Headache Piero n (finding) Active Problem [facility]2020 [facility] History of Problem Active 2020-07-29 M emoria surgery 22:15:32 l for History Abad cerebral of surgery aneurysm for (situation cerebral ) aneurysm (situation ) Active [facility]2020 [facility] Lumbar Problem Active 2020-07-29 Memor ia radiculopa 22:15:32 l thy Lumbar [place] (disorder) radiculopa thy (disorder) Active Problem 07/29/2020 [facility] Neuro Allergies, Adverse Reactions, Alerts Allergy Allergy Status Severity Reaction(s) Onset Inactive Treating Comm ents Source Name Type Date Date Clinician No Known No Known Active Memori a Medicati Medicati l on on Abad Allergie Allergie s s Social History Smoking Status Start Date Stop Date Source Former [facility]oker [facility] Social History [facility] Medications Ordered Filled Start Stop Current Ordering Indication Dosage Frequency Signature Comments Components Source Medication Medication Date Date Medication? 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, Weight cyclobenzap 2019-06 No 0 Memori a rine 10 mg 2-02 Refill(s) l oral tablet 15:28: Piero n 00 gabapentin 2019- Yes 400 mg = 1 M emoria 400 MG Oral 8-28 cap, PO, l Capsule 14:31: BID, # 60 Mary nn 00 cap, 4 Refill(s), [facility]acy: [facility] #[id number], 187.96, cm, 02/04/20 9:16:00 CDT, Height, 140.909, kg, 02/04/20 9:16:00 CDT, Weight gabapentin Yes 400 mg = 1 M emoria 400 MG Oral 2-28 cap, PO, l Capsule 15:12: BID, # 60 Mary nn 00 cap, 4 Refill(s), Pharmacy: [facility] #[id number] Neomycin-Po Neomycin-Po Yes Na [place] [address] [facility] lymyxin-HC lymyxin-HC 1-07 into Malissa es - 00:00: affected Memoria 00 ear l [facility] gabapentin 2018- No 300 mg = 1 M emoria 300 MG Oral 2-17 cap, PO, l Capsule 22:32: BID, # 60 Mary nn 00 cap, 3 Refill(s), Pharmacy: [facility] #[id number] pregabalin 2019- Yes 75 mg = 1 Me moria 75 MG Oral 1-25 cap, PO, l Capsule 15:17: BID, # 60 Mary nn [Lyrica] 29 cap, 3 Refill(s) topiramate 2019 Yes 100 mg = 1 M emoria 100 mg oral 0-11 tab, PO, l tablet 15:16: Bedtime, # Mary nn 10 90 tab, 3 Refill(s), Pharmacy: [facility] #[id number] pregabalin 2019- Yes 75 mg = 1 Me moria 75 MG Oral 0-11 cap, PO, l Capsule 15:16: Daily, # Piero n [Lyrica] 00 30 cap, 2 Refill(s) Breo Breo 2020- No Na Alford [address] [facility] Ellipta Ellipta 2-25 06-06 [facility]oria 00 :00 l [facility] topiramate 2018- No 100 mg = 1 M emoria 100 mg oral 0-15 tab, PO, l tablet 19:36: BID, # 180 Mary nn 08 tab, 3 Refill(s), Pharmacy: [facility] #[id number] topiramate 2017-06 No 100 mg = 1 M emoria 100 mg oral 0-12 tab, PO, l tablet 15:28: BID, X 90 Piero n 00 day, # 180 tab, 3 Refill(s), Pharmacy: [facility] #[id number] topiramate No See Memoria 50 mg oral 7-20 Instructio l tablet 00:01: ns, # 180 Piero n 41 tab, Refill(s) 2, TAKE 1 TABLET BY MOUTH TWICE A DAY, Pharmacy: [id number] Hydrochloro 2017-0 Yes PO, Daily, Memoria thiazide 3-15 0 l 19:55: Refill(s) [place] 00 tramadol Yes 50 mg = 1 Taj hayden hydrochlori 3-15 tab, PO, l de 50 MG 19:55: Q4H, 0 Abad Oral Tablet 00 Refill(s) Fluticasone Yes 1 spray, Me moria propionate 3-15 NASAL, l 0.05 19:55: Daily, 0 Abad MG/ACTUAT 00 Refill(s) Metered Dose Nasal [place] [Flonase] topiramate No 50 mg = 1 Me moria 50 MG Oral 3-15 tab, PO, l Tablet 19:55: BID, # 60 Piero n [Topamax] 00 tab, 0 Refill(s) gabapentin gabapentin No 1capsul BID gabapentin [facility] 400 mg 400 mg e(s) 400 mg [...] route. tadalafil tadalafil No 1 Q1D tadalafil [facility] 10 mg 10 mg 10 mg Family tablet Take tablet Take tablet Practic 1 tablet 1 tablet Take 1 e every day every day tablet by oral by oral every day route. route. by oral route. tamsulosin tamsulosin No 1capsul Q1D tamsulosin [facility] 0.4 mg 0.4 mg e(s) 0.4 mg Family capsule capsule capsule Practi c Take 1 Take 1 Take 1 e capsule capsule capsule every day every day every day by oral by oral by oral route. route. route. Fluticasone Fluticasone Yes Na [place] [address] [facility] Propionate Propionate each Malissa es - nostril Memoria [facility] Singulair Singulair Yes Na [place] TAKE [address] [facility] TABLET BY [facility] - MOUTH Memoria EVERY DAY [facility] Propranolol Propranolol Yes Na [place] TAKE [address] [facility] HCl HCl TABLET BY [facility] - MOUTH Memoria TWICE A l DAY [facility] Lyrica Lyrica Yes Na [place] [address] [facility] Claritin Claritin Na Alford [address] [facility] 11-12 [facility] - 00:00 Memoria :00 [facility] Immunizations Ordered Filled Immunization Date Status Comments [facility] Immunization Name Name Afluria single dose Afluria single dose 2019-02-[address] [facility] Vital Signs Vital Name Observation Time Observation Value Comments Source Height 2019-12-21 00:00:00 76 [in_i] [facility] Height 2019-11-10 00:00:00 76 [in_i] [facility] BMI (Body Mass 2019-11-10 00:00:00 36.5 kg/m2 [facility] Body Weight 2019-11-10 00:00:00 300 [lb_av] [facility] Systolic (mm Hg) 2020-06-06 15:05:00 Taj Melgoza Diastolic (mm Hg) 2020-06-06 15:05:00 Paul Melgoza Heart Rate 2020-06-06 15:[facility] 2020-06-06 15:05:00 Damion al Abad Height 2020-06-06 15:05:00 190.5 cm [facility] Weight 2020-06-06 15:05:00 [facility] [place] BMI Calculated 2020-06-06 15:05:00 Mem[facility] al [place] Systolic (mm Hg) 2020-05-10 15:00:00 Taj rial [place] Diastolic (mm Hg) 2020-05-10 15:00:00 Mem orial [place] Heart Rate 2020-05-10 15:00:00 [facility] Abad Respitory Rate 2020-05-10 15:00:00 [facility] [place] Height 2020-05-10 15:00:00 185.42 cm [facility] [place] Weight 2020-05-10 15:00:00 [facility] [place] BMI Calculated 2020-05-10 15:00:00 Memori al Abad Systolic (mm Hg) 2020-02-04 14:16:00 Taj rial [place] Diastolic (mm Hg) 2020-02-04 14:16:00 Mem orial [place] Heart Rate 2020-02-04 14:16:00 [facility] Abad Respitory Rate 2020-02-04 14:16:00 Memori al Abad Height 2020-02-04 14:16:00 187.96 cm [facility] [place] Weight 2020-02-04 14:16:00 [facility] Abad BMI Calculated 2020-02-04 14:16:00 Memori al [place] Systolic (mm Hg) 2019-08-06 14:55:00 Taj rial [place] Diastolic (mm Hg) 2019-08-06 14:55:00 Mem orial Abad Heart Rate 2019-08-06 14:55:00 [facility] Abad Respitory Rate 2019-08-06 14:55:00 Memori al Abad Height 2019-08-06 14:55:00 190.5 cm [facility] Abad Weight 2019-08-06 14:55:00 [facility] Abad BMI Calculated 2019-08-06 14:55:00 Memori al Abad Systolic (mm Hg) 2019-05-03 15:05:00 Taj rial Abad Diastolic (mm Hg) 2019-05-03 15:05:00 Mem orial Abad Heart Rate 2019-05-03 15:05:00 [facility] Abad Respitory Rate 2019-05-03 15:05:00 Memori al [place] Height 2019-05-03 15:05:00 190.5 cm [facility] [place] Weight 2019-05-03 15:05:00 [facility] Abad BMI Calculated 2019-05-03 15:05:00 Memori al [place] Systolic (mm Hg) 2019-03-19 14:28:00 Taj rial [place] Diastolic (mm Hg) 2019-03-19 14:28:00 Mem orial Abad Heart Rate 2019-03-19 14:28:00 [facility] Abad Respitory Rate 2019-03-19 14:28:00 Memori al [place] Height 2019-03-19 14:28:00 190.5 cm [facility] [place] Weight 2019-03-19 14:28:00 [facility] Abad BMI Calculated 2019-03-19 14:28:00 Memori al Abad Systolic (mm Hg) 2018-03-20 14:54:00 Taj rial Abad Diastolic (mm Hg) 2018-03-20 14:54:00 Mem orial [place] BMI Calculated 2018-03-20 14:54:00 Memori al [place] Height 2018-03-20 14:54:00 190.5 cm [facility] [place] Weight 2018-03-20 14:54:00 [facility] [place] Respitory Rate 2018-03-20 14:54:00 Memori al Abad Heart Rate 2018-03-20 14:54:00 [facility] [place] Procedures This patient has no known procedures. Plan of Care Planned Activity Planned Date Details Comments Source Instructions [facility] Encounters Start End Encounter Admission Attending Care Care Encounter Source Date/Time Date/Time Type Type Clinicians Facility Department ID 2020-08-16 2020-08-16 [id number] 2020-08-11 2020-08-11 [facility] [id number] [facility] 2020-08-10 2020-08-10 [facility] [id number] [facility] 2020-08-08 2020-08-08 [facility] [id number] [facility] 2020-07-27 2020-07-27 Outpatient Mathew, MHMISCHER MISCHER [id number] 09:00:00 09:00:00 Aust[place] 10 Gideon 2020-07-17 2020-07-17 [facility] [id number] [facility] 2020-07-03 2020-07-03 [facility] [id number] [facility] 2020-06-06 2020-06-06 Outpatient Mathew, MHMISCHER MISCHER [id number] 09:00:00 23:59:59 [place] 09 Gideon 2020-05-10 2020-05-10 Outpatient Mathew, MHMISCHER MISCHER [id number] 09:00:00 23:59:59 Aust[place] 08 [facility] 2020-04-26 2020-04-26 [facility] [id number] [facility] 2020-04-26 2020-04-26 [facility] [id number] [facility] 2020-04-03 2020-04-03 [facility] [id number] [facility] 2020-02-04 2020-02-04 Outpatient Mathew, MISCHER MISCHER [id number] 09:00:00 23:59:59 [place] 06 [facility] 2020-02-04 2020-02-04 Outpatient Gregorynava, MHMISCHER MISCHER [id number] 09:00:00 09:00:00 [place] 05 [facility] 2020-01-03 2020-01-03 [facility] [id number] [facility] 09:40:00 09:40:00 t Admittor Oakley [employer] [facility] Out[facility] Clinics 2019-12-21 2019-12-21 Marilin [facility] [place] - [id number] V illage 00:00:00 00:00:00 BelénPedro Luis 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 2019-12-07 2019-12-07 [facility] [id number] 15:11:00 15:11:00 [facility] Outpati ent [facility] 2019-11-10 2019-11-10 Marilin [facility] [place] - [id number] V illage 00:00:00 00:00:00 Vianca 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 2019-10-04 2019-10-04 [facility] [id number] [address] 09:20:00 09:20:00 [employer] [facility] Outpati ent Clinics 2019-08-23 2019-08-23 [facility] [id number] 09:40:00 09:40:00 Admittor [employer] [facility] Out[facility] Clinics 2019-08-06 2019-08-06 Outpatient [facility]ENAT [id number] 09:15:00 23:59:59 Austenteodoro Meneses 2019-06-15 2019-06-15 [facility] [id number] [address] 08:40:00 08:40:00 [employer] [facility] Outpat[facility] ent Clinics 2019-05-17 2019-05-17 [facility] [id number] 09:40:00 09:40:00 [facility] Outpat[facility] ent Clinics 2019-05-03 2019-05-03 Outpatient ZEENAT CarmonaSCHJOHNNY [id number] 09:00:00 23:59:59 Austenteodoro Meneses 2019-04-30 2019-04-30 Outpatient ZEENAT Carmona MHMISCHJOHNNY [id number] 10:30:00 10:30:00 [place] 02 Gideon 2019-03-19 2019-03-19 Outpatient [facility]AT [facility] [id number] 09:30:00 23:59:59 [place] 01 Gideon 2019-02-15 2019-02-15 [facility] [id number] 09:40:00 09:40:00 [place] [address] Luke s - Drive [facility] Medicine Outpati ent Clinics 2018-12-03 2018-12-03 [facility] [id number] 11:43:00 11:43:00 [place] [address] Luke s - Drive [facility] Medicine Outpati ent Clinics 2018-11-09 2018-11-09 [facility] [id number] 08:40:00 08:40:00 [place] [address] Luke s - Drive [facility] Medicine Medicine Outpati ent Clinics 2018-08-03 2018-08-03 [facility] [id number] 09:00:00 09:00:00 [place] [address] Luke s - Drive [facility] Medicine Medicine Outpati ent Clinics 2018-06-22 2018-06-22 [facility] [id number] [facility] 16:52:00 16:52:00 [place] [address] Luke s - Drive [facility] Medicine Outpati ent Clinics 2018-05-29 2018-05-30 Outpatient MHMISCHER MISCHER [id number] 09:25:00 23:59:59 2018-05-06 2018-05-06 [facility] [id number] 11:15:00 11:15:00 [place] [address] Luke s - Drive [facility] Medicine Outpati ent Clinics 2018-03-25 2018-03-26 Outpatient MHMISCHER MHMISCHER [id number] 17:33:00 23:59:59 00 2018-03-20 2018-03-20 Outpatient ZEENAT Carmona CURT[facility]ER [id number] 09:30:00 23:59:59 [place] 00 Gideon 2018-03-09 2018-03-09 [facility] [id number] [facility] 16:06:00 16:06:00 t [facility] 2018-02-06 2018-02-06 [facility] [id number] 08:30:00 08:30:00 t [facility] 2017-11-07 2017-11-07 [facility] [id number] 08:30:00 08:30:00 [facility] ent [facility] Results Test Description Test Time Test Comments Results Result Comments Source ANEMIA STUDY 2019-04-05 279 [facility] huynh 15:46:00 CHEM PANEL 2019-04-05 138 Sherine Roquea nn 15:46:00 HEMATOLOGY 2019-04-05 6 [facility] nn 15:46:00 IMMUNOLOGY 2019-04-05 7.0 Sherine Roquea nn 15:46:00
[2020-10-07 00:16] LABS: Absolute Lymphocytes (CBC) 1.5 K/uL (0.7-4.9); Basophils % 1.1 % (0-1.3); Hematocrit 44.4 % (39.6-49.0); Lymphocytes % 10.9 % (15.3-44.8); MPV 8.2 fL (7.6-11.3); RBC Red Blood Cell Count 4.62 M/uL (4.33-5.43)
[2020-10-07 00:37] LABS: Protime INR 1.09
[2020-10-07 00:43] LABS: Potassium 4.4 mmol/L (3.5-5.1)
[2020-10-07] MEDS ORDERED: MECLIZINE HCL 12.5 MG TAB ONE (01:08)
[2020-10-07 01:49] LABS: NT PRO-BNP 197 pg/mL (<125); Troponin (Emerg Dept Use Only) < 0.02 ng/mL (0.0-0.045)
[2020-10-07 02:02] LABS: Urine Blood 1+ (Negative); Urine Glucose Negative (Negative); Urine Protein Negative (Negative); Urine pH 5.5 (5.0-7.0)
--- NOTE | 2020-10-07 02:26 | EDPHYS ---
Physician Documentation [facility] Name: Winston Garcia Age: 65 yrs Sex: Male : 1955 Arrival Date: 10/06/2020 Time: 23:23 Bed 7 Private MD: ED Physician Yo Jones HPI: 10/07 00:34 This 65 yrs old Male presents to ER via Wheelchair with complaints of mh7 Shortness Of Breath, Arm Pain, Dizziness. 00:34 The patient has shortness of breath at rest. Onset: The symptoms/episode began/occurred mh7 today, at 20:00. Duration: The symptoms are intermittent, with no pattern. The patient's shortness of breath is aggravated by exertion, light activity, is alleviated by nothing. Associated signs and symptoms: Pertinent positives: chest pain, dizziness, nausea, arm pain, Pertinent negatives: non-productive cough, productive cough, diaphoresis, fever, hemoptysis, loss of consciousness, numbness in extremities, visual changes. Severity of symptoms: At their worst the symptoms were moderate today, in the emergency department the symptoms have improved moderately. 01:13 States that he had dizziness characterized by room spinning sensation and left chest mh7 pain, SOB, and left arm pain. Denies any weakness, numbness/tingling.. Historical: - Allergies: 10/06 23:41 No Known Allergies; rr5 - Home Meds: 23:41 Lipitor Oral [Active]; sildenafil oral oral [Active]; Lexapro Oral [Active]; Zoloft rr5 Oral [Active]; losartan oral oral [Active]; - PMHx: 23:41 brain aneurysm; Hypertension; Hyperlipidemia; rr5 - PSHx: 23:41 back surgery; rr5 - Immunization history:: Adult Immunizations up to date, Client reports receiving the 2nd dose of the Covid vaccine, Date received: September 11, 2020. - Social history:: Smoking status: unknown Patient uses alcohol, occasionally. ROS: 10/07 00:34 Constitutional: Negative for fever, chills, and weight loss, Eyes: Negative for injury, mh7 pain, redness, and discharge, ENT: Negative for injury, pain, and discharge, Neck: Negative for injury, pain, and swelling. Back: Negative for injury and pain, : Negative for injury, bleeding, discharge, and swelling, Skin: Negative for injury, rash, and discoloration, Neuro: Negative for headache, weakness, numbness, tingling, and seizure, Psych: Negative for depression, anxiety, suicide ideation, homicidal ideation, and hallucinations, Allergy/Immunology: Negative for hives, rash, and allergies, Endocrine: Negative for neck swelling, polydipsia, polyuria, polyphagia, and marked weight changes, Hematologic/Lymphatic: Negative for swollen nodes, abnormal bleeding, and unusual bruising. Abdomen/GI: Negative for abdominal pain, vomiting, diarrhea, constipation, abdominal cramps, abdominal distension, anorexia, dysphagia, hematemesis, black/tarry stool, rectal pain, rectal bleeding, bowel incontinence, flatulence. Exam: 00:34 Constitutional: This is a well developed, well nourished patient who is awake, alert, mh7 and in no acute distress. Head/Face: Normocephalic, atraumatic. Eyes: Pupils equal round and reactive to light, extra-ocular motions intact. Lids and lashes normal. Conjunctiva and sclera are non-icteric and not injected. Cornea within normal limits. Periorbital areas with no swelling, redness, or edema. Neck: Trachea midline, no thyromegaly or masses palpated, and no cervical lymphadenopathy. Supple, full range of motion without nuchal rigidity, or vertebral point tenderness. No Meningismus. 00:34 Cardiovascular: Regular rate and rhythm with a normal S1 and S2. No gallops, murmurs, or rubs. Normal PMI, no JVD. No pulse deficits. Respiratory: Lungs have equal breath sounds bilaterally, clear to auscultation and percussion. No rales, rhonchi or wheezes noted. No increased work of breathing, no retractions or nasal flaring. Abdomen/GI: Soft, non-tender, with normal bowel sounds. No distension or tympany. No guarding or rebound. No evidence of tenderness throughout. Back: No spinal tenderness. No costovertebral tenderness. Full range of motion. Skin: Warm, dry with normal turgor. Normal color with no rashes, no lesions, and no evidence of cellulitis. 00:34 Chest/axilla: Inspection: normal, Palpation: tenderness, that is moderate, of the anterior aspect of left upper chest, that totally reproduces the patient's complaints, Axilla: are normal, Lymph nodes: lymphadenopathy is not appreciated. 00:34 Musculoskeletal/extremity: Extremities: noted in the left upper arm: tenderness, ROM: intact in all extremities, Circulation is intact in all extremities. Pulses: are normal with no appreciated deficits, Perfusion: the patient is normally perfused throughout, Perfusion: the extremity is normally perfused throughout, Calf tenderness, is absent, Sensation intact. Compartment Syndrome exam of affected extremity: is normal. no numbness, no tingling, no sensation deficit, no palor, no weak pulses, Joints: All joints appear normal with full range of motion. Tendon exam: specific tendon testing normal through active and passive range of motion 00:34 Neuro: Orientation: is normal, Mentation: is normal, Memory: is normal, Cranial nerves: grossly normal, Cerebellar function: is grossly normal, Motor: is normal, Sensation: is normal, Gait: not tested. seizure activity, is not displayed by the patient, Abnormal movements: there are no abnormal movements. 00:34 Psych: Awake, alert, with orientation to person, place and time. Behavior, mood, and 7 affect are within normal limits. Vital Signs: 10/06 23:35 BP 132 / 84; Pulse 105; Resp 19; Temp 99; Pulse Ox 96% ; Weight 140.61 kg; Height 6 ft. rr5 4 in. (193.04 cm); Pain 8/10; 10/07 01:05 BP 140 / 93; Pulse 108; Resp 16; Pulse Ox 93% on R/A; rv 02:24 BP 162 / 92; Pulse 102; Resp 19; Pulse Ox 97% ; rr5 02:37 BP 146 / 87; Pulse 95; Resp 16; Pulse Ox 98% ; rr5 03:42 BP 152 / 86; Pulse 96; Resp 19; Pulse Ox 99% ; rr5 10/06 23:35 Body Mass Index 37.73 (140.61 kg, 193.04 cm) rr5 NIH Stroke Scale Scores: 10/06 23:45 NIHSS Score: 1 rr5 Lorenzo Coma Score: 23:35 Eye Response: spontaneous(4). Verbal Response: oriented(5). Motor Response: obeys rr5 commands(6). Total: 15. MDM: 10/07 02:23 Differential diagnosis: Anemia Anxiety Reaction asthma, Bronchitis CHF exacerbation, mh7 Chronic Obstructive Pulmonary Disease Myocardial Infarction pneumonia, Pneumothorax Psychogenic pulmonary edema, Pulmonary Embolism reactive airway disease, Dizziness. Data reviewed: vital signs, nurses notes, lab test result(s), cardiac enzymes, CBC, electrolytes, urinalysis. Data interpreted: Pulse oximetry: on room air is 95 %. Interpretation: normal. Counseling: I had a detailed discussion with the patient and/or guardian regarding: the historical points, exam findings, and any diagnostic results supporting the discharge/admit diagnosis, the presence of at least one elevated blood pressure reading (>120/80) during this emergency department visit, lab results, radiology results, the need for further work-up and treatment in the hospital. Response to treatment: the patient's symptoms have mildly improved after treatment. 02:25 Patient medically screened. [facility] 10/06 23:50 Order name: Basic Metabolic Panel; Complete Time: 00:54 [facility] 10/06 23:50 Order name: CBC with Diff; Complete Time: 00:54 [facility] 10/06 23:50 Order name: Protime (+inr); Complete Time: 00:54 [facility] 10/06 23:50 Order name: Ptt, Activated; Complete Time: 00:54 [facility] 10/06 23:58 Order name: Troponin (emerg Dept Use Only); Complete Time: 01:50 [facility] 10/06 23:58 Order name: PROBNP; Complete Time: 01:50 [facility] 10/07 00:06 Order name: Glucose, Ancillary Testing; Complete Time: 00:34 [facility] 10/07 00:08 Order name: Glucose, Ancillary Testing [facility] 10/07 01:15 Order name: CPK [facility] 10/07 01:15 Order name: ETOH Level [facility] 10/07 01:16 Order name: Creatine Phosphokinase; Complete Time: 01:50 [facility] 10/07 01:16 Order name: Alcohol Serum/Plasma; Complete Time: 01:41 [facility] 10/07 02:02 Order name: Urine Dipstick-Ancillary; Complete Time: 02:07 [facility] 10/07 02:09 Order name: Urine Culture [facility] 10/06 23:50 Order name: CT Stroke Brain w/o Contrast [facility] 10/06 23:50 Order name: Stroke CXR 1 View [facility] 10/06 23:50 Order name: EKG; Complete Time: 23:51 [facility] 04/30 23:50 Order name: Accucheck; Complete Time: 00:02 rr5 10/06 23:50 Order name: Cardiac monitoring; Complete Time: 00:02 rr5 10/06 23:50 Order name: EKG - Nurse/Tech; Complete Time: 00:02 rr5 10/06 23:50 Order name: IV Saline Lock; Complete Time: 00:02 rr5 10/06 23:50 Order name: Labs collected and sent; Complete Time: 00:03 rr5 10/06 23:50 Order name: NPO; Complete Time: 00:03 rr5 10/06 23:50 Order name: O2 Per Protocol; Complete Time: 00:03 rr5 10/06 23:50 Order name: O2 Sat Monitoring; Complete Time: 00:03 rr5 10/07 00:56 Order name: CT Chest For PE Angio mh7 10/07 03:33 Order name: SARS-COV-2 RT PCR ED[facility] 10/06 23:50 Order name: Stroke Swallow Screen; Complete Time: 00:47 rr5 Administered Medications: 00:51 Drug: Meclizine 25 mg Route: PO; rr5 01:50 Follow up: Response: No adverse reaction rr5 02:14 Drug: Rocephin (cefTRIAXone) 1 grams Route: IV; Rate: per protocol; Site: right rr5 antecubital; 03:15 Follow up: Response: No adverse reaction; IV Status: Completed infusion rr5 Disposition: 10/07/20 02:25 Hospitalization ordered by Aníbal Leon for Inpatient Admission. Preliminary diagnosis are Chest pain, unspecified, Dyspnea, Dizziness and giddiness, Urinary tract infection, site not specified. - Bed requested for Telemetry/MedSurg (Inpatient). - Status is Inpatient Admission. rr5 - Condition is Stable. - Problem is new. - Symptoms have improved. NIH Stroke Scale - NIH Stroke Score Date: 10/06/2020 Time: 23:45 Total Score = 1 1a. Level of Consciousness (LOC) - 0(Alert) 1b. Level of Consciousness (LOC) (Year \T\ Age) - 0(Both) 1c. LOC Commands (Open \T\ Closes Eyes/Assistant Guest Services Manager) - 0(Both) 2. Best Gaze (Lateral Gaze Paresis) - 0(Normal) 3. Visual Field Loss - 0(No visual loss) 4. Facial Palsy - 0(Normal) 5a. Left Arm: Motor (10-second hold) - 1(Drift) 5b. Right Arm: Motor (10-second hold) - 0(No drift) 6a. Left Leg: Motor (5-second hold - always test supine) - 0(No drift) 6b. Right Leg: Motor (5-second hold - always test supine) - 0(No drift) 7. Limb Ataxia (finger/nose \T\ heel/dixno - test with eyes open) - 0(Absent) 8. Sensory Loss (pinprick arms/legs/face) - 0(Normal) 9. Best Language: Aphasia (description/naming/reading) - 0(No aphasia) 10. Dysarthria (speech clarity - read or repeat words) - 0(Normal) 11. Extinction and Inattention (visual/tactile/auditory/spatial/personal) - 0(No abnormality) Initials: rr5 Signatures: Dispatcher [employer] EDCA Tashia Dimas RN RN Leroy Sampson RN RN 5 Yo Jones MD MD 7 Corrections: (The following items were deleted from the chart) 02:49 02:28 CORONAVIRUS+.ELIANE ordered. [facility] 03:39 02:25 Hospitalization Ordered by Aníbal Leon DO for Inpatient Admission. Preliminary diagnosis is Chest pain, unspecified; Dyspnea; Dizziness and giddiness; Urinary tract infection, site not specified. Bed requested for Telemetry/MedSurg (Inpatient). Status is Inpatient Admission. Condition is Stable. Problem is new. Symptoms have improved. mh7 04:04 03:39 10/07/2020 02:25 Hospitalization Ordered by Aníbal Leon DO for rr5 Inpatient Admission. Preliminary diagnosis is Chest pain, unspecified; Dyspnea; Dizziness and giddiness; Urinary tract infection, site not specified. Bed requested for Telemetry/MedSurg (Inpatient). Status is Inpatient Admission. Condition is Stable. Problem is new. Symptoms have improved.
--- NOTE | 2020-10-07 02:26 | ER ---
Nurse's Notes [facility] Name: Winston Garcia Age: 65 yrs Sex: Male : 1955 Arrival Date: 10/06/2020 Time: 23:23 Bed 7 Private MD: Diagnosis: Chest pain, unspecified;Dyspnea;Dizziness and giddiness;Urinary tract infection, site not specified Presentation: 10/06 23:35 Chief complaint: Patient states: I felt dizzy, and pain, numbness both arms started rr5 around 8PM now its more on my left arm. 23:35 Coronavirus screen: Client denies travel out of the [place] in the last 14 days. rr5 difficulty breathing, Client presents with at least one sign or symptom that may indicate coronavirus-19. Standard/surgical mask placed on the client. Provider contacted for isolation considerations. Ebola Screen: Patient negative for fever greater than or equal to 101.5 degrees Fahrenheit, and additional compatible Ebola Virus Disease symptoms Patient denies exposure to infectious person. Patient denies travel to an Ebola-affected area in the 21 days before illness onset. Initial Sepsis Screen: Does the patient meet any 2 criteria? No. Patient's initial sepsis screen is negative. Does the patient have a suspected source of infection? No. Patient's initial sepsis screen is negative. Risk Assessment: Do you want to hurt yourself or someone else? Patient reports no desire to harm self or others. Onset of symptoms was October 06, 2020. 23:35 Method Of Arrival: Wheelchair rr5 23:35 Acuity: LOBITO 2 rr5 Triage Assessment: 10/07 01:08 General: Appears uncomfortable. Respiratory: Reports shortness of breath at rest Onset: rv The symptoms/episode began/occurred suddenly, the patient has mild shortness of breath. Historical: - Allergies: 10/06 23:41 No Known Allergies; rr5 - Home Meds: 23:41 Lipitor Oral [Active]; sildenafil oral oral [Active]; Lexapro Oral [Active]; Zoloft rr5 Oral [Active]; losartan oral oral [Active]; - PMHx: 23:41 brain aneurysm; Hypertension; Hyperlipidemia; rr5 - PSHx: 23:41 back surgery; rr5 - Immunization history:: Adult Immunizations up to date, Client reports receiving the 2nd dose of the Covid vaccine, Date received: September 11, 2020. - Social history:: Smoking status: unknown Patient uses alcohol, occasionally. Screenin:45 VAN Screening: Arm Drift: Minor drift. Visual Disturbance: No visual disturbance noted. rr5 Aphasia: No aphasia noted. Neglect: No neglect noted. 10/07 00:00 Fall Risk IV access (20 points). Total Dunne Fall Scale indicates No Risk (0-24 pts). rr5 00:04 Abuse screen: Denies threats or abuse. Denies injuries from another. Nutritional rr5 screening: No deficits noted. Tuberculosis screening: No symptoms or risk factors identified. Patient has been NPO before screening. The patient is alert, able to follow commands. The patient does not exhibit slurred or garbled speech The patient is not exhibiting difficulty speaking. The patient does not exhibit difficulty understanding words. The patient is able to swallow own secretions with no drooling or need for suction. Patient tolerated one teaspoon of water. No drooling, immediate coughing, gurgling, or clearing of the throat was noted. The patient tolerated 90mL of water. No drooling, immediate coughing, gurgling, or clearing of the throat was noted. The patient passed the bedside swallow screening. Oral medications may be given as ordered. Contact Physician for further diet orders. Provider notified of bedside swallow screening results: Yo Jones MD. Assessment: 01:07 General: Appears uncomfortable, Behavior is calm, cooperative. Pain: Complains of pain rv in right arm and left arm. Neuro: Level of Consciousness is awake, alert, obeys commands, Oriented to person, place, time, situation. Cardiovascular: Patient's skin is warm and dry. Rhythm is sinus tachycardia. Respiratory: Airway is patent Respiratory effort is even, unlabored, Respiratory pattern is regular, Breath sounds are clear bilaterally. Derm: Skin is intact. 02:24 Reassessment: Patient appears in no apparent distress at this time. Patient is alert, rr5 oriented x 3, equal unlabored respirations, skin warm/dry/pink. Patient states symptoms have improved. 02:37 Reassessment: Patient appears in no apparent distress at this time. hospitalist at rr5 bedside. 03:30 Reassessment: Patient appears in no apparent distress at this time. Patient is alert, rr5 oriented x 3, equal unlabored respirations, skin warm/dry/pink. resting on side lying position awaiting for room assignment. Vital Signs: 10/06 23:35 BP 132 / 84; Pulse 105; Resp 19; Temp 99; Pulse Ox 96% ; Weight 140.61 kg; Height 6 ft. rr5 4 in. (193.04 cm); Pain 8/10; 10/07 01:05 BP 140 / 93; Pulse 108; Resp 16; Pulse Ox 93% on R/A; rv 02:24 BP 162 / 92; Pulse 102; Resp 19; Pulse Ox 97% ; rr5 02:37 BP 146 / 87; Pulse 95; Resp 16; Pulse Ox 98% ; rr5 03:42 BP 152 / 86; Pulse 96; Resp 19; Pulse Ox 99% ; rr5 10/06 23:35 Body Mass Index 37.73 (140.61 kg, 193.04 cm) rr5 Lorenzo Coma Score: 10/06 23:35 Eye Response: spontaneous(4). Verbal Response: oriented(5). Motor Response: obeys rr5 commands(6). Total: 15. NIH Stroke Scale Scores: 23:45 NIHSS Score: 1 rr5 ED Course: 23:23 Patient arrived in ED. am4 23:28 Yo Jones MD is Attending Physician. mh7 23:37 Leroy Sampson, ROSIE is Primary Nurse. rr5 23:40 Triage completed. rr5 23:42 Arm band placed on right wrist. rr5 10/07 00:00 Patient has correct armband on for positive identification. cardiac monitor technician on. Pulse rv ox on. NIBP on. 00:01 CT Stroke Brain w/o Contrast In Process Unspecified. EDMS 00:13 Stroke CXR 1 View In Process Unspecified. EDMS 00:15 Inserted saline lock: 20 gauge in right antecubital area, using aseptic technique. rr5 Blood collected. 00:18 EKG done, by ED staff, reviewed by Yo Jones MD. rr5 01:42 CT Chest For PE Angio In Process Unspecified. EDMS 02:25 Aníbal Leon DO is Hospitalizing Provider. mh7 02:37 COVID swab sent to lab. rr5 02:38 No provider procedures requiring assistance completed. Patient admitted, IV remains in rr5 place. intact, No redness/swelling at site. Administered Medications: 00:51 Drug: Meclizine 25 mg Route: PO; rr5 01:50 Follow up: Response: No adverse reaction rr5 02:14 Drug: Rocephin (cefTRIAXone) 1 grams Route: IV; Rate: per protocol; Site: right rr5 antecubital; 03:15 Follow up: Response: No adverse reaction; IV Status: Completed infusion rr5 Intake: 04:00 total of 3x voided freely rr5 Outcome: 02:25 Decision to Hospitalize by Provider. [facility] 04:02 Admitted to Med/surg accompanied by tech, via wheelchair, room 225, with chart, Report rr5 called to alcon 04:02 Condition: stable 04:02 Instructed on the need for admit. 04:04 Patient left the ED. rr5 NIH Stroke Scale - NIH Stroke Score Date: 10/06/2020 Time: 23:45 Total Score = 1 1a. Level of Consciousness (LOC) - 0(Alert) 1b. Level of Consciousness (LOC) (Year \T\ Age) - 0(Both) 1c. LOC Commands (Open \T\ Closes Eyes/Supervisor Pipe Finishing) - 0(Both) 2. Best Gaze (Lateral Gaze Paresis) - 0(Normal) 3. Visual Field Loss - 0(No visual loss) 4. Facial Palsy - 0(Normal) 5a. Left Arm: Motor (10-second hold) - 1(Drift) 5b. Right Arm: Motor (10-second hold) - 0(No drift) 6a. Left Leg: Motor (5-second hold - always test supine) - 0(No drift) 6b. Right Leg: Motor (5-second hold - always test supine) - 0(No drift) 7. Limb Ataxia (finger/nose \T\ heel/dixon - test with eyes open) - 0(Absent) 8. Sensory Loss (pinprick arms/legs/face) - 0(Normal) 9. Best Language: Aphasia (description/naming/reading) - 0(No aphasia) 10. Dysarthria (speech clarity - read or repeat words) - 0(Normal) 11. Extinction and Inattention (visual/tactile/auditory/spatial/personal) - 0(No abnormality) Initials: rr5 Signatures: Dispatcher [employer] EDRidge Mendez RN RN Leroy Sandy RN RN rr5 Yo Jones MD MD mh7 Pat Yang 4 Corrections: (The following items were deleted from the chart) 00:05 10/06 23:35 Acuity: LOBITO 3 rr5 rr5
[2020-10-07] MEDS ORDERED: CEFTRIAXONE/SWI 1gm 1 GM/10 ML SYR ONE (02:28)
--- NOTE | 2020-10-07 03:02 | P.HP ---
Certification for Inpatient Patient admitted to: Observation With expected LOS: <2 Midnights Patient will require the following post-hospital care: None Practitioner: I am a practitioner with admitting privileges, knowledge of patient current condition, hospital course, and medical plan of care. Services: Services provided to patient in accordance with Admission requirements found in Title 42 Section 412.3 of the Code of Federal Regulations Patient History Date of Service: 10/07/20 Reason for admission: Chest pain, dizziness History of Present Illness: 65-year-old male history of hypertension, hyperlipidemia, brain aneurysm requiring intervention (2007) presents emergency department for chest pain/dizziness. Patient reports that he is resting in bed and attempted to go to the bathroom becoming extremely dizzy when he got up feeling like the room is spinning and falling back down into the bed. Patient also noticed at that time he began to have some sharp stabbing pain to the left anterior chest area with radiation down bilateral arms and associated shortness of breath. Patient was evaluated in the emergency department, labs significant for white blood cell count 13.5, otherwise unremarkable patient and CT head without contrast, CT PE protocol, chest x-ray all negative for acute findings. Patient still with some persistent stabbing chest pain with radiation down both arms, dizziness exacerbated with movement, ED provider wishes to admit patient for further evaluation and management. Allergies No Known Drug Allergies Allergy (Verified 05/15/15 12:37) Unknown No Allergy (Uncoded 08/02/17 01:47) Unknown Home Medications: Propranolol [Inderal*] 40 mg PO BID 05/15/15 Montelukast Sodium 10 mg PO DAILY 08/02/17 Aspirin [Aspirin EC 81 MG] 81 mg PO DAILY #30 tablet. 11/27/19 Gabapentin [Neurontin*] 400 mg PO BID 11/27/19 predniSONE [Prednisone*] 20 mg PO BID #6 tab 11/27/19 - Past Medical/Surgical History Diabetic: No -: HTN -: BRAIN ANUERYSMS -: Hyperlipidemia -: CYST REMOVED FROM TOP OF HEAD -: BRAIN SURGERY FOR ANEURYSMS -: Back surgery Psychosocial/ Personal History: Patient is retired, lives with his - Family History Mother -: Cancer Notes: BREAST CANCER - Social History Smoking Status: Never smoker Alcohol use: Yes CD- Drugs: No Caffeine use: Yes Place of Residence: Home Review of Systems Respiratory: Shortness of Breath Cardiovascular: Chest Pain, Light Headedness Neurological: Other (Dizziness) Physical Examination - Physical Exam General: Alert, In no apparent distress, Oriented x3 HEENT: Atraumatic, PERRLA, Mucous membr. moist/pink Neck: Supple, 2+ carotid pulse no bruit, No LAD, Without JVD or thyroid abnormality Respiratory: Clear to auscultation bilaterally, Normal air movement Cardiovascular: Regular rate/rhythm, Normal S1 S2 Gastrointestinal: Normal bowel sounds, No tenderness Musculoskeletal: No tenderness Integumentary: No rashes Neurological: Normal speech, Normal strength at 5/5 x4 extr, Normal tone, Normal affect - Studies Laboratory Data (last 24 hrs) 10/06/20 23:59: PT 12.6 H, INR 1.09, APTT 31.8 10/06/20 23:59: WBC 13.50 H, Hgb 14.8, Hct 44.4, Plt Count 201 10/06/20 23:59: Sodium 139, Potassium 4.4, BUN 15, Creatinine 1.18, Glucose 130 H Assessment and Plan - Plan Assessment Chest pain rule out ACS Dizziness Hypertension, hyperlipidemia Plan Chest pain rule out ACS: Monitor on telemetry, trend troponins, cardiology consult in place. Patient is reportedly told by his neurosurgeon to absolutely not taking any aspirin, will not order aspirin or other anti coagulation at this time, if this becomes necessary could be best to speak with patient's neurosurgeon unless absolutely necessary. Pain is atypical, pain arms is reproducible. DVT prophylaxis with SCDs. Dizziness: Made worse with movement, described as room spinning sounds vertiginous, CT head negative for any acute findings, the patient had CT PE protocol in the emergency department so obtaining an angiogram is not possible at the moment, patient without any focal neurological deficits. Will obtain orthostatics vital signs and provide patient with p.r.n. meclizine. Consult neurology as necessary. Hypertension, hyperlipidemia: Obtain and continue home medications adjust as necessary. Discharge Plan: Home Plan to discharge in: 24 Hours - Advance Directives Does patient have a Living Will: No Does patient have a Durable POA for Healthcare: No - Code Status/Comfort Care Code Status Assessed: Yes (Full code) Critical Care: No Time Spent Managing Pts Care (In Minutes): 55
[2020-10-07] MEDS ORDERED: ACETAMINOPHEN 500 MG TAB PO PRN (03:26)
[2020-10-07] MEDS ORDERED: MECLIZINE HCL 12.5 MG TAB PO PRN (05:17)
[2020-10-07] MEDS ORDERED: TRAMADOL HCL 50 MG TAB PO PRN (05:18)
[2020-10-07 05:23] VITALS: BMI 37.7
[2020-10-07] MEDS ORDERED: NA CHLORIDE 0.9% 500 ML IV ONE (05:54)
[2020-10-07 05:56] LABS: HDL Cholesterol 51 mg/dL (40-60); LDL Cholesterol, Calculated 42 (<130); Magnesium 2.1 mg/dL (1.8-2.4); Thyroid Stimulating Hormone 0.535 uIU/mL (0.360-3.740); Troponin I < 0.02 ng/mL (0.0-0.045)
--- NOTE | 2020-10-07 07:22 | EKG ---
Test Date: 2020-10-06 Test Time: 23:57:36 [place]: RR MEASUREMENT RESULTS: Intervals: Rate: 107 MN: 136 QRSD: 86 QT: 328 QTc: 437 [place]: P: 55 MN: 136 QRS: 50 T: 68 INTERPRETIVE STATEMENTS: Sinus tachycardia Otherwise normal ECG Compared to ECG 11/26/2019 20:59:33 Sinus rhythm no longer present Electronically Signed On 10-07-20 07:21:48 CDT by Javon Evans
--- NOTE | 2020-10-07 09:04 | P.DS ---
Admission Date: 10/07/20 Discharge Date: 10/07/20 Primary Care Provider: Dr. Alford Disposition: ROUTINE DISCHARGE Discharge Condition: GOOD Reason for Admission: Chest pain, dizziness Consultations: None Procedures: COVID: Negative CT head: Unremarkable CT chest: Unremarkable Medical problem list: Chest pain, dizziness Acute renal insufficiency likely dehydration Hypertension Chronic pain Diabetes mellitus type 2 with diabetic neuropathy Obesity, BMI 37.7 Brief History of Present Illness: 65-year-old male history of hypertension, hyperlipidemia, brain aneurysm requiring intervention (2007) presents emergency department for chest p ain/dizziness. Patient reports that he is resting in bed and attempted to go to the bathroom becoming extremely dizzy when he got up feeling like the room is spinning and falling back down into the bed. Patient also noticed at that time he began to have some sharp stabbing pain to the left anterior chest area with radiation down bilateral arms and associated shortness of breath. Patient was evaluated in the emergency department, labs significant for white blood cell count 13.5, otherwise unremarkable patient and CT head without contrast, CT PE protocol, chest x-ray all negative for acute findings. Patient still with some persistent stabbing chest pain with radiation down both arms, dizziness exacerbated with movement, ED provider wishes to admit patient for further evaluation and management. Allergies No Known Drug Allergies Allergy (Verified 05/15/15 12:37) Unknown No Allergy (Uncoded 08/02/17 01:47) Unknown Home Medications: Propranolol [Inderal*] 40 mg PO BID 05/15/15 Montelukast Sodium 10 mg PO DAILY 08/02/17 Aspirin [Aspirin EC 81 MG] 81 mg PO DAILY #30 tablet. 11/27/19 Gabapentin [Neurontin*] 400 mg PO BID 11/27/19 predniSONE [Prednisone*] 20 mg PO BID #6 tab 11/27/19 - Past Medical/Surgical History Diabetic: No -: HTN -: BRAIN ANUERYSMS -: Hyperlipidemia -: CYST REMOVED FROM TOP OF HEAD -: BRAIN SURGERY FOR ANEURYSMS -: Back surgery Psychosocial/ Personal History: Patient is retired, lives with his - Family History Mother -: Cancer Notes: BREAST CANCER - Social History Smoking Status: Never smoker Alcohol use: Yes CD- Drugs: No Caffeine use: Yes Place of Residence: Home Review of Systems Respiratory: Shortness of Breath Cardiovascular: Chest Pain, Light Headedness Neurological: Other (Dizziness) Physical Examination - Physical Exam General: Alert, In no apparent distress, Oriented x3 HEENT: Atraumatic, PERRLA, Mucous membr. moist/pink Neck: Supple, 2+ carotid pulse no bruit, No LAD, Without JVD or thyroid abnormality Respiratory: Clear to auscultation bilaterally, Normal air movement Cardiovascular: Regular rate/rhythm, Normal S1 S2 Gastrointestinal: Normal bowel sounds, No tenderness Musculoskeletal: No tenderness Integumentary: No rashes Neurological: Normal speech, Normal strength at 5/5 x4 extr, Normal tone, Normal affect - Studies Laboratory Data (last 24 hrs) 10/06/20 23:59: PT 12.6 H, INR 1.09, APTT 31.8 10/06/20 23:59: WBC 13.50 H, Hgb 14.8, Hct 44.4, Plt Count 201 10/06/20 23:59: Sodium 139, Potassium 4.4, BUN 15, Creatinine 1.18, Glucose 130 H Assessment and Plan - Plan Code Status Assessed: Yes (Full code) Critical Care: No Time Spent Managing Pts Care (In Minutes): 55 Hospital Course: Patient presented with chest pain and dizziness. Patient with history of hypertension, hyperlipidemia and prior brain aneurysm requiring intervention in 2007. Patient was evaluated in the emergency room. CT head unremarkable. CT chest unremarkable. Patient was admitted overnight. Cardiac enzymes unremarkable. Patient had been using Valium and narcotic medication recently. Patient appeared dehydrated. Patient given IV fluids. Medications reviewed. No further intervention required. Patient did well with physical therapy. At discharge patient will continue with current medications. Recommend to discontinue hydrocodone and Valium. Encourage oral intake. Fall precautions in place. Patient with acute renal injury likely from dehydration. Patient given IV fluids with improvement. Orthostatics stable. Patient worked with physical therapy. Recommend and encourage oral intake. Recommend to recheck labBMP in 1 week to monitor his progress. Patient with hypertension. Home medications reviewed. Patient takes propanolol 40 mg twice daily. Patient slightly dehydrated with slight decrease in blood pressure. Will recommend to change propanolol to metoprolol 25 mg 1 pill twice daily. Recommend to monitor blood pressure at least daily. Recommend to maintain blood pressure less than 130/80. If blood pressures remain above 140/90 further medications may need to be adjusted. This can be done with the help of his PCP. Recommend follow-up within 1 week to follow-up hospitalization. Patient with chronic pain with diabetic neuropathy. Patient takes Neurontin 400 mg 1 pill twice daily. Patient also takes baclofen 10 mg 1 pill twice daily. Recommend to use baclofen as needed. Patient recently used hydrocodone and Valium. Recommend to discontinue those medications at this may interfere with current medications. This may have contributed the chest pain and dizziness. Patient with diabetes mellitus type 2. At discharge patient will continue with Metformin 500 mg 1 pill twice daily. Recommend to monitor blood sugars at least twice daily. Recommend to maintain blood sugar less than 140 fasting and less than 200 after meals. If blood sugars remain above 200 he is to contact his PCP for further recommendation as medication may need to be adjusted. Recommend to recheck hemoglobin A1c every 3 months to monitor his progress. Recommend follow-up with PCP to further monitor and address. Vital Signs/Physical Exam: Temp Pulse Resp BP Pulse Ox 97.8 F 96 H 19 126/68 95 10/07/20 08:00 10/07/20 08:00 10/07/20 08:00 10/07/20 08:00 10/07/20 08:00 General: Alert, In no apparent distress, Oriented x3, Cooperative HEENT: Atraumatic Neck: Supple Respiratory: Clear to auscultation bilaterally, Normal air movement Cardiovascular: Normal pulses, Regular rate/rhythm Gastrointestinal: Normal bowel sounds, No tenderness, No masses, No rebound, No guarding Neurological: Normal speech, Normal strength at 5/5 x4 extr, Normal tone, Normal affect Laboratory Data at Discharge: WBC 13.50 K/uL (4.3-10.9) H 10/06/20 23:59 Hgb 14.8 g/dL (13.6-17.9) 10/06/20 23:59 Hct 44.4 % (39.6-49.0) 10/06/20 23:59 Plt Count 201 K/uL (152-406) 10/06/20 23:59 PT 12.6 SECONDS (9.5-12.5) H 10/06/20 23:59 INR 1.09 10/06/20 23:59 APTT 31.8 SECONDS (24.3-36.9) 10/06/20 23:59 Sodium 139 mmol/L (136-145) 10/06/20 23:59 Potassium 4.4 mmol/L (3.5-5.1) 10/06/20 23:59 BUN 15 mg/dL (7-18) 10/06/20 23:59 Creatinine 1.18 mg/dL (0.55-1.3) 10/06/20 23:59 Glucose 130 mg/dL (74-106) H 10/06/20 23:59 Magnesium 2.1 mg/dL (1.8-2.4) 10/07/20 05:10 Magnesium Cancelled 10/07/20 05:10 Troponin I < 0.02 ng/mL (0.0-0.045) 10/07/20 05:10 Triglycerides 41 mg/dL (<150) 10/07/20 05:10 Cholesterol 101 mg/dL (<200) 10/07/20 05:10 HDL Cholesterol 51 mg/dL (40-60) 10/07/20 05:10 Cholesterol/HDL Ratio 1.98 10/07/20 05:10 Home Medications: Baclofen [Lioresal*] 1 tab PO BID 10/07/20 Gabapentin [Neurontin*] 1 tab PO BID 10/07/20 Loratadine [Claritin*] 10 mg PO DAILY 10/07/20 Metformin HCl [Glucophage*] 1 tab PO BID 10/07/20 Metoprolol Tartrate [Lopressor*] 25 mg PO BID 6AM 6PM #60 tab 10/07/20 Montelukast Sodium 1 tab PO BEDTIME 10/07/20 Tamsulosin HCl [Flomax] 1 cap PO BID 10/07/20 tadalafiL [Tadalafil] 1 tab PO DAILY 10/07/20 New Medications: Metoprolol Tartrate [Lopressor*] 25 mg PO BID 6AM 6PM #60 tab Physician Discharge Instructions: Patient presented with chest pain and dizziness. Patient with history of hypertension, hyperlipidemia and prior brain aneurysm requiring intervention in 2007. Patient was evaluated in the emergency room. CT head unremarkable. CT chest unremarkable. Patient was admitted overnight. Cardiac enzymes unremarkable. Patient had been using Valium and narcotic medication recently. Patient appeared dehydrated. Patient given IV fluids. Medications reviewed. No further intervention required. Patient did well with physical therapy. At discharge patient will continue with current medications. Recommend to discontinue hydrocodone and Valium. Encourage oral intake. Fall precautions in place. Patient with acute renal injury likely from dehydration. Patient given IV fluids with improvement. Orthostatics stable. Patient worked with physical therapy. Recommend and encourage oral intake. Recommend to recheck labBMP in 1 week to monitor his progress. Patient with hypertension. Home medications reviewed. Patient takes propanolol 40 mg twice daily. Patient slightly dehydrated with slight decrease in blood pressure. Will recommend to change propanolol to metoprolol 25 mg 1 pill twice daily. Recommend to monitor blood pressure at least daily. Recommend to maintain blood pressure less than 130/80. If blood pressures remain above 140/90 further medications may need to be adjusted. This can be done with the help of his PCP. Recommend follow-up within 1 week to follow-up hospitalization. Patient with chronic pain with diabetic neuropathy. Patient takes Neurontin 400 mg 1 pill twice daily. Patient also takes baclofen 10 mg 1 pill twice daily. Recommend to use baclofen as needed. Patient recently used hydrocodone and Valium. Recommend to discontinue those medications at this may interfere with current medications. This may have contributed the chest pain and dizziness. Patient with diabetes mellitus type 2. At discharge patient will continue with Metformin 500 mg 1 pill twice daily. Recommend to monitor blood sugars at least twice daily. Recommend to maintain blood sugar less than 140 fasting and less than 200 after meals. If blood sugars remain above 200 he is to contact his PCP for further recommendation as medication may need to be adjusted. Recommend to recheck hemoglobin A1c every 3 months to monitor his progress. Recommend follow-up with PCP to further monitor and address. Diet: ADA Activity: Fall precautions Followup: Shay Byrne MD [Primary Care Provider] - Time spent managing pt's care (in minutes): 55
--- NOTE | 2020-10-07 10:40 | RAD REPORT ---
EXAM DESCRIPTION: RAD - Chest Single View - 10/07/2020 12:13 am CLINICAL HISTORY: PAIN, shortness of breath COMPARISON: Portable November 2019 TECHNIQUE: AP portable chest image was obtained 10/07/2020 12:13 am . FINDINGS: Lung volumes are low accentuating the baseline interstitial pattern. No focal mass or cons olidation. No significant failure or volume overload suspected. Heart and vasculature are normal. No measurable pleural effusion and no pneumothorax. No acute bony abnormality seen. No acute aortic findings suspected. IMPRESSION: No acute cardiopulmonary process. Lung markings are accentuated by shallow inspiration.
[2020-10-07 12:38] VITALS: O2SAT 96
[2020-10-07 12:58] VITALS: BP 132/71; TEMP 97.7
[2020-10-07] MEDS ORDERED: METFORMIN HCL 500 MG TAB PO SCH (17:00)
[2020-10-07] MEDS ORDERED: METOPROLOL TAR 25 MG TAB PO SCH (18:00)
[2020-10-07] MEDS ORDERED: GABAPENTIN 400 MG CAP PO SCH (21:00)
--- NOTE | 2020-10-07 21:12 | RAD REPORT ---
EXAM DESCRIPTION: CT - Ct Stroke Brain Wo Cont - 10/07/2020 6:59 am CLINICAL HISTORY: 65 years Male WEAKNESS COMPARISON: None. TECHNIQUE: Contiguous axial CT images obtained through the brain without IV contrast. This exam was performed according to our department optimization program which includes automated exp osure control, adjustment of the mA and/or kv according to patient size and/or use of iterative recon struction technique. FINDINGS: There are changes from previous left frontotemporal craniotomy with aneurysm clips in the region of the anterior communicating artery. The ventricles and sulci appear unremarkable. Slightly decreased density around the left frontal horn likely from old ischemic change. No mass lesions. No acute hemorrhage. No fluid or significant mucosal thickening in the visualized paranasal sinuses. No depressed calvarial fractures. IMPRESSION: No acute intracranial abnormality is identified. If there is clinical concern for the po ssibility of acute ischemic change, MRI could be obtained to better evaluate. The findings were zuñiga d to Dr. Jones at 12:03 AM central time. Electronically signed by: Dale Mcgraw MD 10/07/2020 12:06 AM CDT Due to temporary technical issues with the PACS/Fluency reporting system, reports are being signed by the in house radiologists without review as a courtesy to insure prompt reporting. The interpreting radiologist is fully responsible for the content of the report.
--- NOTE | 2020-10-07 21:20 | RAD REPORT ---
EXAM DESCRIPTION: CT - Chest For Pe Angio - 10/07/2020 6:59 am COMPARISON: None. CLINICAL HISTORY: [facility] MAIN Chest pain;SOB TECHNIQUE: CT images through the chest with IV contrast using the pulmonary embolus protocol. Multip lanar reformats. Automated exposure control was utilized on this examination as a dose lowering soraya hnique. FINDINGS: Pulmonary arteries and vascular: Diagnostic quality bolus with respiratory motion artifact . No proximal filling defects. There are subsegmental filling defects which may represent artifact. Heart and mediastinum: Heart size is normal. No lymphadenopathy. Thyroid gland: Out of the [id number]. Lungs: Clear. The inferior lung bases are out of the [id number]. Airways: No filling defects. No bronchiectasis. Pleura: No pneumothorax. No significant pleural effusion. Subphrenic structures: Within normal limits. Musculoskeletal and soft tissues: Within normal limits for age. IMPRESSION: 1. No evidence of proximal pulmonary embolus. Respiratory motion artifact limits evaluat ion. Subsegmental questionable filling defects most likely represent respiratory motion artifact and less likely small subsegmental emboli. 2. No other acute chest process. Electronically signed by: Radu Valladares MD 10/07/2020 2:01 AM CDT Due to temporary technical issues with the PACS/Fluency reporting system, reports are being signed by the in house radiologists without review as a courtesy to insure prompt reporting. The interpreting radiologist is fully responsible for the content of the report.
--- NOTE | 2020-10-10 12:28 | CON ---
Reason For Consultation: Recurrent chest pain and dyspnea . History Of Present Illness: Mr. Garcia is a 65-year-old white male pedal edema. He had a normal pending. chest is clear. Physical Examination: HEENT: Negative. Neck: Supple. No bruit. Chest: Clear. Cardiac: Regular rhythm and rate. No murmur, gallops, no rubs. Abdomen: Benign. Extremities: edema. Diagnostic Data: Impression And Plan: negative PND. Normal EKG. Normal x-ray. Normal echo . TOI/POLINA Voice ID: [id number] Report ID: [id number]
--- NOTE | 2020-10-14 20:28 | CON ---
Date of Consultation: 10/07/2020 Reason For Consultation: Shortness of breath, arm pain and dizziness. History Of Present Illness: Mr. Garcia is a 65-year-old male with history of depression, hypertensi on, dyslipidemia, who came in with shortness of breath, arm pain, and dizziness. His symptoms were n ot related to activity, not related to exertion, they were not related to food, time of the day, body position. By the time I saw him, he had a normal EKG, normal troponin, normal chest x-ray, normal B NURSE TRANSITION. He was pain free. He also had a normal CT of his head, normal CT angiogram of his chest. The p atient denied any PND, orthopnea, pedal edema, palpitations, or syncope. Past Medical History: Includes hypertension, depression, dyslipidemia, also aneurysm of brain that w as clipped. Allergies: NONE. Review of Systems: Negative. Social History: Negative. Family History: Positive for hypertension. Medications: At home include Lipitor, Lexapro, and losartan. Physical Examination: Vital Signs: Stable. He was afebrile. He weighed 310 pounds. HEENT: Negative. Neck: Supple with no bruit. Chest: Clear to auscultation and percussion. Cardiac: Reveals a regular rhythm and rate. No murmurs, gallops, or rubs. Abdomen: Benign. Extremities: Revealed no clubbing, cyanosis, or edema. Diagnostic Data: Positive for slightly elevated white count of 13,000, the last of which was normal. Impression And Plan: Atypical chest pain in a patient with history of hypertension, dyslipidemia, an d history of brain aneurysm repair, negative workup so far. The patient is symptom free. Vital sign s stable, wants to go home. I am comfortable with that and I will make arrangements for to have a n outpatient echocardiogram and a MPI. His blood pressure and dyslipidemia are well controlled. The case was discussed with Dr. Leon. TOI/POLINA Voice ID: [id number] Report ID: [id number]
== END 2020-10-07 13:59 | disposition home or self-care (01) ==
LOC: ER 23:18 → ERHOLD 10-07 02:52 → 2ND 10-07 04:03
PROVIDERS: ADMIT Family Medicine; ATTEND Family Medicine
DX: R07.9 Chest pain, unspecified (principal); R42 Dizziness and giddiness; E11.40 Type 2 diabetes mellitus with diabetic neuropathy, unspecified; N28.9 Disorder of kidney and ureter, unspecified; I10 Essential (primary) hypertension; G89.29 Other chronic pain; E66.9 Obesity, unspecified; Z68.37 Body mass index [BMI] 37.0-37.9, adult; E78.5 Hyperlipidemia, unspecified; Z20.822 Contact with and (suspected) exposure to COVID-19
CPT/HCPCS: 96365; 93005; 87088; 85025; 87086; 80048; 36415; 80320; 83735; 82550; 85610; 80061; 82947; 85730; 84443; 87077; 87186; 81003; 84484 ×3; 84439; 83880; 71275; 70450; 71045; 97161; 99285; U0003; Q9967; J0696; J7040; G0378 ×2

== ENCOUNTER 2021-07-02 07:51 | Emergency (ER) | payer OTHER ==
--- OUTSIDE RECORDS SUMMARY | 2021-07-02 07:54 | XMS REPORT | Continuity of Care Document ---
:1955 Author Organization [facility] t Address [address] [place] [address] Care Team Providers Name Role Phone Guerita Alford Primary Care Physician Lucrecia CHEN Attending Clinician Belén-Mbayo_A_AH Attending Clinician Unavailable Belén-Mbayo_A_AH Admitting Clinician Unavailable Payers Payer Name Policy Type Policy Number Effective Date Expiration Date S [facility] OF [place] - [id number] 2019 [employer] 00:00:00 (MEDICARE REPLACEMENT/ADVANT AGE - HMO) Problems Condition Condition Condition Status Onset Resolution Last Treating Co mments Source Name Details Category Date Date Treatment Clinician Date Non-trauma Non-trauma Problem Active [place] 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 00:00: Practi c hemorrhage Hemorrhage 00 e 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 Chronic 6 Family obstructiv Obstructiv 00:00: Pr actic e e 00 e pulmonary Pulmonary disease Disease Benign Benign Problem Active [place] prostatic Prostatic 11-12 Fami ly hyperplasi Hyperplasi 00:00: Pr actic a a 00 e Generalize Generalize Problem Active [place] d headache d Headache 6- Fa jose 00:00: Practic 00 e Hypertensi Hypertensi Problem Active [place] ve ve 6-03 Family disorder Disorder 00:00: Practi c 00 e Seasonal Seasonal Problem Active Boo ge allergy Allergy 6-03 Family 00:00: Practic 00 e No known No known Disease [place] active active Health problems problems Allergies, Adverse Reactions, Alerts This patient has no known allergies or adverse reactions. Social History Social Habit Start Date Stop Date Quantity Comments Source Exposure to Not sure [facility] SARS-CoV-2 (event) History of tobacco [facility]oker [place] [facility] Alcohol intake 2021-02-28 2021-02-28 .14 /d [facility] [facility] 00:00:00 00:00:00 Cigarettes smoked 2021-02-28 2021-02-28 [facility] current (pack per 00:00:00 00:00:00 day) - Reported Cigarette pack-years 2021-02-28 2021-02-28 [place] [facility] 00:[facility] 00:00:00 Tobacco use and 2021-02-28 2021-02-28 Former smokeless [place] [facility] exposure 00:00:00 00:00:00 tobacco user Sex Ass[birth year] At [birth year] [facility] 00:00:00 00:00:00 Smoking Status Start Date Stop Date Source Ex-smoker 2021-02-28 00:00:00 2021-02-28 00:00:00 [place] [facility] Medic[facility] Ordered Filled Start Stop Current Ordering Indication Dosage Frequency Signature Comments Components Source Medication Medication Date Date Medication? Clinician (SIG) Name Name metFORMIN Yes Q12H every 12 [facility] (Glucophage 02-28 () Heal th ) 500 MG 14:01: hours. tablet 57 metFORMIN Yes Q12H every 12 [facility] (Glucophage 02-28 () Heal ) 500 MG 14:01: hours. tablet 57 gabapentin Yes 400mg Q.5D Take 400 [facility] (Neurontin) 9-13 mg by Health 400 MG 00:00: mouth 2 capsule 00 (two) times a day. gabapentin Yes 400mg Q.5D Take 400 [facility] (Neurontin) 9-13 mg by Health 400 MG 00:00: mouth 2 capsule 00 (two) times a day. metoprolol Yes 1 TABLET UT tartrate 02-14 BY MOUTH Health (Lopressor) 00:00: WITH FOOD 25 MG 00 TWICE A tablet DAY metoprolol Yes 1 TABLET [facility] tartrate 9-08 BY MOUTH Health (Lopressor) 00:00: WITH FOOD 25 MG 00 TWICE A tablet DAY montelukast 2020-0 Yes 10mg QD Take 10 mg [facility] (Singulair) 8-16 by mouth 1 He alth 10 MG 00:00: (one) time tablet 00 each day. montelukast 2020-0 Yes 10mg QD Take 10 mg [facility] (Singulair) 8-16 by mouth 1 He alth 10 MG 00:00: (one) time tablet 00 each day. loratadine 2020-0 Yes 10mg QD Take 10 mg U T (Claritin) 7-22 by mouth 1 Hea lth 10 MG 00:00: (one) time tablet 00 each day. loratadine 2020-0 Yes 10mg QD Take 10 mg U T (Claritin) 7-22 by mouth 1 Hea lth 10 MG 00:00: (one) time tablet 00 each day. tamsulosin Yes tamsulosin U T (Flomax) 3-10 0.4 mg Health 0.4 MG 24 00:00: capsule hr capsule 00 tamsulosin Yes tamsulosin U T (Flomax) 3-10 0.4 mg Health 0.4 MG 24 00:00: capsule hr capsule 00 tadalafil 2021- No 1 (one) [facility] (Cialis) 5 3-10 -06 time each Hea lth MG tablet 00:00: 05:59 day at the 00 :00 same time. tadalafil 2020-0 2021- No 1 (one) [facility] (Cialis) 5 3-10 -06 time each Hea lth MG tablet 00:00: 05:59 day at the 00 :00 same time. Neomycin-Po Neomycin-Po 2019- Yes Na Alford [address] [facility] lymyxin-HC lymyxin-HC 1-07 into [facility] es - 00:00: affected [facility] 00 ear l Outpat[facility] Clinics Opal Joseph 2020- No Na Alford [address] [facility] Ellipta Ellipta 2-25 06-06 [facility] Fluticasone Fluticasone Yes Na Alford [address] [facility] Propionate Propionate each [place] es - nostril [facility] l Outpati ent [facility] Singulair Singulair Yes Na Alford TAKE [address] [facility] TABLET BY [facility] - M[facility]TH [facility]oria EVERY DAY [facility] Propranolol Propranolol Yes Na Alford TAKE [address] [facility] HCl HCl TABLET BY [facility] TWICE A l DAY [facility] ent [facility] Lyharjit Mcdaniela Yes Na Alford [address] [facility] gabapentin gabapentin No 1capsul BID gabapentin [place] 400 mg 400 mg e(s) 400 mg [...] route. tadalafil tadalafil No 1 Q1D tadalafil [facility] 10 mg 10 mg 10 mg Family tablet Take tablet Take tablet Practic 1 tablet 1 tablet Take 1 e every day every day tablet by oral by oral every day route. route. by oral route. tamsulosin tamsulosin No 1capsul Q1D tamsulosin [facility] 0.4 mg 0.4 mg e(s) 0.4 mg Family capsule capsule capsule Practi c Take 1 Take 1 Take 1 e capsule capsule capsule every day every day every day by oral by oral by oral route. route. route. Claritin Claritin 2020- No Na Alford [address] [facility] 11-12 - 00:00 Memoria :00 [facility] ent [facility] Immunizations Ordered Filled Immunization Date Status Comments [facility] Immunization Name Name Afluria single dose Afluria single dose 2019-02-[address] [facility] [facility] - 00:00:00 [facility] Vital Signs Vital Name Observation Time Observation Value Comments Source Body height 2021-02-28 18:54:00 193 cm [facility] Body weight 2021-02-28 18:54:00 138.347 kg [facility] BMI 2021-02-28 18:54:00 37.13 kg/m2 [facility] Height 2019-12-21 00:00:00 76 [in_i] [facility] Height 2019-11-10 00:00:00 76 [in_i] [facility] BMI (Body Mass 2019-11-10 00:00:00 36.5 kg/m2 [facility] Family Index) Practice Body Weight 2019-11-10 00:00:00 300 [lb_av] [facility] Procedures This patient has no known procedures. Plan of Care Planned Activity Planned Date Details Comments Source Instructions [facility] Encounters Start End Encounter Admission Attending Care Care Encounter Source Date/Time Date/Time Type Type Clinicians Facility Department ID 2021-06-25 2021-06-25 ambulatory [facility] [id number] [facility] 2021-05-29 2021-05-29 ambulatory [facility] [id number] [facility] 2021-05-25 2021-05-25 ambulatory [facility] [id number] [facility] 2021-05-22 2021-05-22 ambulatory [facility] [id number] [facility] 2021-05-02 2021-05-02 ambulatory [facility] [id number] [facility] 2021-04-21 2021-04-21 ambulatory [facility] [id number] [facility] 2021-03-19 2021-03-19 Outpatient [facility] [id number] [facility] 2021-02-28 2021-02-28 Office ELIJAH Singer [id number] [place] 13:30:30 14:55:00 Visit John SHUKLA [id number] [facility] [id number] 2021-02-06 2021-02-06 Outpatient [facility] [id number] [facility] 2021-01-30 2021-01-30 Outpatient [facility] [id number] [facility] 2021-01-12 2021-01-12 Outpatient [facility] [id number] [facility] 2021-01-10 2021-01-10 Outpatient [facility] [id number] [facility] 2020-12-08 2020-12-08 Outpatient [facility] [id number] [facility] 2020-08-16 2020-08-16 Outpatient [facility] [id number] [facility] 2020-08-11 2020-08-11 Outpatient [facility] [id number] [facility] 2020-08-10 2020-08-10 Outpatient [facility] [id number] [facility] 2020-08-08 2020-08-08 Outpatient [facility] [id number] [facility] 2020-07-17 2020-07-17 Outpatient [facility] [id number] [facility] 2020-07-03 2020-07-03 Outpatient [facility] [id number] [facility] 2020-04-26 2020[facility]04-[facility] [id number] [facility] 2020-04-26 2020-04-26 [facility] [id number] [facility] 2020-04-03 2020-04-03 [facility] [id number] [facility] 2020-01-13 2020-01-13 Outpatient Belén-Mbayo VFP VFP [id number] [place] 08:54:00 08:54:00 _A_AH [id number] Family Practic e 2020-01-07 2020-01-07 Outpatient Belén-Mbayo VFP VFP [id number] [facility] 01:34:00 01:34:00 _A_AH [id number] Family Practic e 2020-01-03 2020-01-03 [facility] [id number] [facility] 09:40:00 09:40:00 t [place] [facility] [employer] [facility] Family Medicine l Medicine Outpati ent Clinics 2019-12-25 2019-12-25 Outpatient Belén-Mbayo VFP VFP [id number] [facility] 04:48:00 04:48:00 _A_AH [id number] Family Practic e 2019-12-21 2019-12-21 Marilin VFP [place] - [id number] [place] 00:00:00 00:00:00 [facility] 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 2019-12-20 2019-12-20 Outpatient Belén-Mbayo VFP VFP [id number] [facility] 03:45:00 03:45:00 _A_AH [id number] Family Practic e 2019-12-18 2019-12-18 Outpatient Belén-Mbayo VFP VFP [id number] [place] 02:22:00 02:22:00 _A_AH [id number] Family Practic e 2019-12-15 2019-12-15 Outpatient Belén-Mbayo VFP VFP [id number] [facility] 10:33:00 10:33:00 _A_AH [id number] Family Practic e 2019-12-07 2019-12-07 [facility] [id number] [facility] [address] 15:11:00 15:11:00 [facility] Medicine Outpati ent Clinics 2019-11-15 2019-11-15 Outpatient Belén-Mbayo VFP VFP [id number] [facility] 11:23:00 11:23:00 _A_AH [id number] Family Practic e 2019-11-15 2019-11-15 Outpatient Belén-Mbayo VFP VFP [id number] [facility] 11:23:00 11:23:00 _A_AH [id number] Family Practic e 2019-11-10 2019-11-10 Marilin VFP [place] - [id number] [place] 00:00:00 00:00:00 [facility] 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 2019-10-04 2019-10-04 [facility] [id number] [facility] 09:20:00 09:20:00 [facility] Outpati ent Clinics 2019-08-23 2019-08-23 [facility] [id number] [facility] 09:40:00 09:40:00 [facility] Medicine Outpati ent Clinics 2019-08-05 2019-08-05 Outpatient Belné-Mbayo VFP VFP [id number] [place] 04:24:00 04:24:00 _A_AH [id number] Family Practic e 2019-08-05 2019-08-05 Outpatient Belén-Mbayo VFP VFP [id number] [facility] 04:24:00 04:24:00 _A_AH [id number] Family Practic e 2019-06-15 2019-06-15 [facility] [id number] [facility] 08:40:00 08:40:[address] [place] [address] [facility] Family Medicine l Medicine Outpati ent Clinics 2019-05-17 2019-05-17 [facility] [id number] [address] 09:40:00 09:40:00 [place] Luke [place] - Drive [facility] Medicine l Medicine Outpati ent Clinics 2019-02-15 2019-02-15 [facility] [id number] 09:40:00 09:40:00 [place] - Drive [facility] Family Medicine l Medicine Outpati ent Clinics 2018-12-03 2018-12-03 [facility] [id number] 11:43:00 11:43:00 [place] - Drive [facility] l Medicine Outpati ent Clinics 2018-11-09 2018-11-09 [facility] [id number] 08:40:00 08:40:00 [place] - Drive [facility] Medicine l Medicine Outpati ent Clinics 2018-08-03 2018-08-03 [facility] [id number] 09:00:00 09:00:00 [place] - Drive [facility] Medicine l Medicine Outpati ent Clinics 2018-06-22 2018-06-22 [facility] [id number] 16:52:00 16:52:00 [place] - Drive [facility] Medicine Medicine Outpati ent Clinics 2018-05-06 2018-05-06 [facility] [id number] 11:15:00 11:15:00 [place] Lu[place] - Drive [facility] Medicine l Medicine Outpati ent Clinics 2018-03-09 2018-03-09 [facility] [id number] [facility] 16:06:00 16:06:00 [place] Lu[place] - Drive [facility] Medicine l Medicine Outpati ent Clinics 2018-02-06 2018-02-06 [facility] [id number] 08:30:00 08:30:00 [place] [employer] [place] - Drive Family [facility] [place] ent [facility] 2017-11-07 2017-11-07 Outpatient Simon Moreira [id number] [facility] 08:30:00 08:30:00 [facility] ent [facility] Results Test Description Test Time Test Comments Results Result Comments Source SARS-COV2/RT-PCR ([facility]) 2019-11-27 05:41:00 Test Item Value Reference Range Interpretation Comme nts SARS-COV2/RT-PCR (test code = [id number]) Detected Not Detected, N egative AA SARS-COV-2 PERFORMING LAB (test code = [id number]) [facility] Results are for the detection of SARS-CoV-2 RNA. The SARS-CoV-2 RNA is generally detectable in nasopharyngeal swab specimens during the acute phase of infection. Positive results are indicative of active infection with SARS-CoV-2; clinical correlation with patient history and other diagnostic information is necessary to determine patient infection status. Positive results do not rule out bacterial infection or co-infection with other viruses. The agent detected may not be the definite cause of disease. The limit of detection for this assay is 250 copies/mL.This SARS CoV-2 test is a rapid, [id number]-[id number] test intended for the qualitative detection of nucleic acid from SARS-CoV-2 in a nasopharyngea l swab specimen collected from individuals suspected of COVID-19 by their healthcare provider.This test has not been Food and Drug Administration (FDA) cleared or approved and has been authorized by FDA under an Emergency Use Authorization (EUA). This EUA will be effective until the declaration that ci rcumstances exist justifying the authorization of the emergency use of in vitro diagnostic tests fordetection and/or diagnosis of COVID-19 is terminated under Section 564(b)(2) of the Act or the EUA is revoked under Section 564(g) of the Act.Fact Sheet for Healthcare Providers:https://www.[employer]/ Documents/Xpert%20Xpress%20SARS%20CoV-2/Fact%20Sheets/302-7371%64FCZY-ETL-2%20HE ALTHCARE%20PROVIDERS%20FACT%20SHEET.pdfFact Sheet for Healthcare Patients:https://www.cepheid.com/Documents/Xpert%20Xpress %20SARS%20CoV-2/Fact%20Sheets/302-7502%52CEJW-NFZ-2%20PATIENT%20FACT%20SHEET.pdf Performing Laboratory:[facility] [place] [address]
[2021-07-02 08:41] LABS: Urine Blood 3+ (Negative); Urine Glucose Negative (Negative); Urine Protein 3+ (Negative); Urine Specific Gravity >=1.030 (1.005-1.030); Urine pH 5.5 (5.0-7.0)
[2021-07-02 08:55] LABS: Urine Bacteria LOADED /HPF (NONE SEEN)
[2021-07-02] MEDS ORDERED: LIDOCAINE 1% MPF 2 ML AMPULE ONE (09:25)
[2021-07-02] MEDS ORDERED: CEFTRIAXONE 1000 MG/VIAL ONE (09:25)
--- NOTE | 2021-07-02 09:35 | ER ---
Nurse's Notes [facility] Name: Winston Garcia Age: 65 yrs Sex: Male : 1955 Arrival Date: 07/02/2021 Time: 07:52 Bed 20 Private MD: Diagnosis: UTI/ Urinary tract infection, site not specified Presentation: 07/02 08:06 Chief complaint: Patient states: "I am having problems urinating. it has been going on jd3 for a week. I am supposed to see Dr. Ann on Friday, but I can't wait any longer. I feel like I am in the bathroom every 20 min feeling like I have to go and then very little to non comes out.". Coronavirus screen: At this time, the client does not indicate any symptoms associated with coronavirus-19. Ebola Screen: No symptoms or risks identified at this time. Initial Sepsis Screen: Does the patient meet any 2 criteria? No. Patient's initial sepsis screen is negative. Does the patient have a suspected source of infection? No. Patient's initial sepsis screen is negative. Risk Assessment: Do you want to hurt yourself or someone else? Patient reports no desire to harm self or others. Onset of symptoms was July 02, 2021. 08:06 Method Of Arrival: Ambulatory jd3 08:06 Acuity: LOBITO 3 jd3 Triage Assessment: 09:00 General: Appears in no apparent distress. comfortable, Behavior is calm, cooperative, jd3 appropriate for age. Pain: Complains of pain in abdomen Quality of pain is described as aching, pressure. Neuro: Level of Consciousness is awake, alert, obeys commands, Oriented to person, place, time, situation. : Urine is cloudy, Reports inability to void, pain urinary frequency. Historical: - Allergies: 08:08 No Known Allergies; jd3 - Home Meds: 08:08 Lexapro Oral [Active]; Lipitor Oral [Active]; losartan Oral [Active]; sildenafil Oral jd3 [Active]; Zoloft Oral [Active]; - PMHx: 08:08 brain aneurysm; Hyperlipidemia; Hypertension; jd3 - PSHx: 08:08 None; jd3 - Immunization history:: Adult Immunizations up to date, Client reports receiving the 2nd dose of the Covid vaccine, Flu vaccine is up to date. - Social history:: Smoking status: Patient denies any tobacco usage or history of. Screenin:50 Abuse screen: Denies threats or abuse. Nutritional screening: No deficits noted. ll1 Tuberculosis screening: No symptoms or risk factors identified. Fall Risk Total Dunne Fall Scale indicates No Risk (0-24 pts). Assessment: 09:50 Reassessment: No changes from previously documented assessment. Patient and/or family ll1 updated on plan of care and expected duration. Pain level reassessed. Patient is alert, oriented x 3, equal unlabored respirations, skin warm/dry/pink. Vital Signs: 08:09 BP 137 / 85; Pulse 67; Resp 18 S; Temp 98.1(TE); Pulse Ox 97% on R/A; Weight 145.15 kg jd3 (R); Height 6 ft. 4 in. (193.04 cm) (R); Pain 8/10; 09:49 BP 123 / 87; Pulse 65; Resp 18; Pulse Ox 97% ; Pain 6/10; ll1 08:09 Body Mass Index 38.95 (145.15 kg, 193.04 cm) j ED Course: 07:52 Patient arrived in ED. ds1 08:08 Triage completed. jd3 08:09 Arm band placed on. jd3 09:16 Jeff Soriano PA is PHCP. jm 09:16 Jeremiah Britton MD is Attending Physician. [facility] 09:22 Ashlee Garza, ROSIE is Primary Nurse. ll1 09:34 Brandon Ann MD is Referral Physician. [facility] 09:50 Patient has correct armband on for positive identification. Bed in low position. Call ll1 light in reach. Side rails up X 1. Cardiac monitoring not applicable on this patient. 09:50 No provider procedures requiring assistance completed. Patient did not have IV access ll1 during this emergency room visit. Administered Medications: 09:29 Drug: Rocephin (cefTRIAXone) 1 grams Route: IM; Site: right gluteus; ll1 09:50 Follow up: Response: No adverse reaction ll1 09:42 Drug: [place] (HYDROcodone-acetaminophen) 10 mg-325 mg 1 tabs {Note: rass 0 pain 8/10.} ll1 Route: PO; 09:51 Follow up: Response: No adverse reaction ll1 Outcome: 09:34 Discharge ordered by . nancy 09:50 Discharged to home ambulatory. ll1 09:50 Condition: stable 09:50 Discharge instructions given to patient, family, Instructed on discharge instructions, follow up and referral plans. no drinking with medication, no driving heavy equipment, medication usage, Demonstrated understanding of instructions, follow-up care, medications, Prescriptions given X 3. 09:51 Patient left the ED. ll1 Signatures: Jeff Soriano PA PA jmm Sanford, Demi ds1 Cas Montalvo RN RN jAshlee Plaza RN RN ll1
--- NOTE | 2021-07-02 09:36 | EDPHYS ---
Physician Documentation [facility] Name: Winston Garcia Age: 65 yrs Sex: Male : 1955 Arrival Date: 07/02/2021 Time: 07:52 Bed 20 Private MD: ED Physician Jeremiah Britton HPI: 07/02 09:31 This 65 yrs old Male presents to ER via Ambulatory with complaints of Urinary Frequency.[facility] 09:31 The patient presents with urinary symptoms, dysuria, urinary frequency. Onset: The jmm symptoms/episode began/occurred gradually, 1 week(s) ago. Modifying factors: The symptoms are alleviated by nothing, the symptoms are aggravated by urinating. Associated signs and symptoms: Pertinent negatives: abdominal pain, fever, vomiting. The patient has not experienced similar symptoms in the past. Historical: - Allergies: 08:08 No Known Allergies; jd3 - Home Meds: 08:08 Lexapro Oral [Active]; Lipitor Oral [Active]; losartan Oral [Active]; sildenafil Oral jd3 [Active]; Zoloft Oral [Active]; - PMHx: 08:08 brain aneurysm; Hyperlipidemia; Hypertension; jd3 - PSHx: 08:08 None; jd3 - Immunization history:: Adult Immunizations up to date, Client reports receiving the 2nd dose of the Covid vaccine, Flu vaccine is up to date. - Social history:: Smoking status: Patient denies any tobacco usage or history of. ROS: 09:32 Constitutional: Negative for fever, chills, and weight loss, Cardiovascular: Negative jmm for chest pain, palpitations, and edema, Respiratory: Negative for shortness of breath, cough, wheezing, and pleuritic chest pain, Abdomen/GI: Negative for abdominal pain, nausea, vomiting, diarrhea, and constipation. 09:32 : Positive for urinary symptoms. 09:32 All other systems are negative. Exam: 09:32 Constitutional: This is a well developed, well nourished patient who is awake, alert, jmm and in no acute distress. Head/Face: atraumatic. Eyes: EOMI, no conjunctival erythema appreciated ENT: Moist Mucus Membranes Neck: Trachea midline, Supple Chest/axilla: Normal chest wall appearance and motion. Cardiovascular: Regular rate and rhythm. No edema appreciated Respiratory: Normal respirations, no respiratory distress appreciated Abdomen/GI: Non distended, soft Back: Normal ROM Skin: General appearance color normal MS/ Extremity: Moves all extremities, no obvious deformities appreciated, no edema noted to the lower extremities Neuro: Awake and alert, normal gait Psych: Behavior is normal, Mood is normal, Patient is cooperative and pleasant Vital Signs: 08:09 BP 137 / 85; Pulse 67; Resp 18 S; Temp 98.1(TE); Pulse Ox 97% on R/A; Weight 145.15 kg jd3 (R); Height 6 ft. 4 in. (193.04 cm) (R); Pain 8/10; 09:49 BP 123 / 87; Pulse 65; Resp 18; Pulse Ox 97% ; Pain 6/10; ll1 08:09 Body Mass Index 38.95 (145.15 kg, 193.04 cm) jd3 MDM: 09:31 Patient medically screened. [facility] 09:33 Data reviewed: vital signs, nurses notes. Counseling: I had a detailed discussion with nancy the patient and/or guardian regarding: the historical points, exam findings, and any diagnostic results supporting the discharge/admit diagnosis, lab results, the need for outpatient follow up, to return to the emergency department if symptoms worsen or persist or if there are any questions or concerns that arise at home. ED course: Patient is alert and non toxic in appearance in the ED. No signs of sepsis, pyelonephritis. Will follow up with urology on Friday. Patient otherwise given strict return precautions. patient understood and agrees with the plan of care. . 07/02 08:41 Order name: Urine Microscopic Only; Complete Time: 09:17 bd 07/02 08:41 Order name: Urine Dipstick-Ancillary EDMS 07/02 08:57 Order name: Urine Culture EDMS Administered Medications: 09:29 Drug: Rocephin (cefTRIAXone) 1 grams Route: IM; Site: right gluteus; ll1 09:50 Follow up: Response: No adverse reaction ll1 09:42 Drug: [place] (HYDROcodone-acetaminophen) 10 mg-325 mg 1 tabs {Note: rass 0 pain 8/10.} ll1 Route: PO; 09:51 Follow up: Response: No adverse reaction ll1 Disposition: 13:17 Co-signature as Attending Physician, Jeremiah Britton MD I agree with the assessment and kdr plan of care. Disposition Summary: 07/02/21 09:34 Discharge Ordered Location: Home [facility] Condition: Stable [facility] Diagnosis - UTI/ Urinary tract infection, site not specified [facility] Followup: [facility] - With: Brandon Ann MD - When: 2 - 3 days - Reason: Recheck today's complaints, Continuance of care, Re-evaluation by your physician Discharge Instructions: - Discharge Summary Sheet [facility] - Urinary Tract Infection, Adult [facility] Forms: - Medication Reconciliation Form [facility] - Thank You Letter [facility] - Antibiotic Education [facility] - Prescription Opioid Use [facility] Prescriptions: - cefpodoxime 200 mg Oral Tablet - take 1 tablet by ORAL route every 12 hours for 10 days with food; 20 tablet; m Refills: 0, Product Selection Permitted - Pyridium 200 mg Oral Tablet - take 1 tablet by ORAL route every 8 hours for 2 days; 6 tablet; Refills: 0, [facility] Product Selection Permitted - Ultracet 37.5-325 mg Oral Tablet - take 1 tablet by ORAL route every 6 hours - for up to 5 days; do not exceed 8 jmm tablets per day.; 12 tablet; Refills: 0, Product Selection Permitted Signatures: Dispatcher [employer] EDJeremiah Og MD MD kdr Mickail, Joel, PA PA jmm Davies, Jonathon RN RN jd3 Ashlee Garza RN RN ll1
[2021-07-02] MEDS ORDERED: HYDROCODONE/APAP 10/325 TAB ONE (09:41)
[2021-07-02 19:08] VITALS: TEMP 98.1; O2SAT 97
[2021-07-02 19:12] VITALS: BP 123/87
== END 2021-07-02 09:51 | disposition home or self-care (01) ==
LOC: ER 07:51
DX: N39.0 Urinary tract infection, site not specified (principal); I10 Essential (primary) hypertension; E78.5 Hyperlipidemia, unspecified
CPT/HCPCS: 81003; 81015; 87077; 87086; 87088; 87186; 96372; 99283

== ENCOUNTER 2021-08-03 17:05 | Inpatient (IN) | payer OTHER ==
[2021-08-03] MEDS ORDERED: RSI MEDICATION KIT IV ONE (17:09)
--- OUTSIDE RECORDS SUMMARY | 2021-08-03 17:09 | XMS REPORT | Continuity of Care Document ---
:1955 Author Organization [facility] t Address [address] [place] [address] Dr. De La Cruz. [address] [place] [address] Care Team Providers Name Role Phone Guerita Alford Primary Care Physician Cady Alford Attending Clinician Unavailable Delio CHEN Attending Clinician Doctor Unassigned, Name Attending Clinician Unavailable Lucrecia CHEN Attending Clinician Belén-Mbayo_A_AH Attending Clinician Unavailable Belén-Mbayo_A_AH Admitting Clinician Unavailable Payers Payer Name Policy Type Policy Number Effective Date Expiration Date S saurabh [facility] [place] - [id number] 2019 [employer] 00:00:00 (MEDICARE REPLACEMENT/ADVANT AGE - HMO) Problems Condition Condition Condition Status Onset Resolution Last Treating Co mments Source Name Details Category Date Date Treatment Clinician Date Non-trauma Non-trauma Problem Active [facility] 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 00:00: Practi c hemorrhage Hemorrhage 00 e 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 Allergies, Adverse Reactions, Alerts This patient has no known allergies or adverse reactions. Social History Social Habit Start Date Stop Date Quantity Comments Source History of tobacco Smoker [facility] use Exposure to Not sure University SARS-CoV-2 (event) [facility] Alcohol intake 2021-02-28 2021-02-28 .14 /d [facility] 00:00:00 00:00:00 Cigarettes smoked 2021-02-28 2021-02-28 [facility] current (pack per 00:00:00 00:00:00 day) - Reported Cigarette 2021-02-28 2021-02-28 [facility] pack-years 00:00:00 00:00:00 Tobacco use and 2021-02-28 2021-02-28 Former smokeless [facility] exposure 00:00:00 00:00:00 tobacco user Sex Ass[birth year] At [birth year] [facility] y of 00:00:00 00:00:00 [facility] Smoking Status Start Date Stop Date Source Unknown if ever smoked [facility] Ex-smoker 2021-02-28 00:00:00 2021-02-28 00:00:00 [facility] h Medications Ordered Filled Start Stop Current Ordering Indication Dosage Frequency Signature Comments Components Source Medication Medication Date Date Medication? Clinician (SIG) Name Name gabapentin Yes gabapentin U nivers 300 mg 2-21 300 mg ity of capsule 09:56: capsule [address] metFORMIN Yes every 12 Univ ers 500 mg 2-21 (twelve) ity of tablet 09:56: hours. [address] baclofen 10 Yes 10mg Take 10 mg Univers mg tablet -21 by mouth 2 ity of 09:56: (two) [place] [address] times Medical daily. Branch topiramate 2021- No topiramate Univers 100 mg 2-21 02-21 100 mg ity of tablet 09:56: 00:00 tablet [place] 20 :00 Medical Branch fluticasone Yes Breo Univer s furoate-adrian 2-21 Ellipta ity o f anteroL 09:54: 100 mcg-25 [place] 100-25 10 mcg/dose Medical mcg/dose powder for Branc h DsDv inhalation propranoloL Yes propranolo Univers 40 mg 2-21 l 40 mg ity of tablet 09:54: tablet [address] pregabalin Yes Lyrica 75 Un citlali (LYRICA) 75 2-21 mg capsule it y of mg capsule 09:54: [address] metFORMIN 2020-0 Yes Q12H every 12 UT (Glucophage 02-28 (twelve) Heal th ) 500 MG 14:01: hours. tablet 57 metFORMIN 2020-0 Yes Q12H every 12 UT (Glucophage - (twelve) Heal th ) 500 MG 14:01: hours. tablet 57 gabapentin 0 Yes 400mg Q.5D Take 400 UT (Neurontin) 9-13 mg by Health 400 MG 00:00: mouth 2 capsule 00 (two) times a day. gabapentin 0 Yes 400mg Q.5D Take 400 UT (Neurontin) 9-13 mg by Health 400 MG 00:00: mouth 2 capsule 00 (two) times a day. gabapentin Yes gabapentin U nivers 400 mg 9-13 400 mg ity of capsule 00:00: capsule [address] metoprolol 0 Yes 1 TABLET UT tartrate 9-08 BY MOUTH Health (Lopressor) 00:00: WITH FOOD 25 MG 00 TWICE A tablet DAY metoprolol 0 Yes 1 TABLET UT tartrate 9-08 BY MOUTH Health (Lopressor) 00:00: WITH FOOD 25 MG 00 TWICE A tablet DAY metoprolol 0 Yes 1 TABLET Uni vers tartrate 25 9-08 BY MOUTH ity of mg tablet 00:00: WITH FOOD Pramod as 00 TWICE A Medical DAY Branch montelukast Yes 10mg QD Take 10 mg UT (Singulair) 8-16 by mouth 1 He alth 10 MG 00:00: (one) time tablet 00 each day. montelukast 0 Yes 10mg QD Take 10 mg UT (Singulair) 8-16 by mouth 1 He alth 10 MG 00:00: (one) time tablet 00 each day. loratadine 2020-0 Yes 10mg QD Take 10 mg U T (Claritin) 7-22 by mouth 1 Hea lth 10 MG 00:00: (one) time tablet 00 each day. loratadine 202-0 Yes 10mg QD Take 10 mg U T (Claritin) 7-22 by mouth 1 Hea lth 10 MG 00:00: (one) time tablet 00 each day. loratadine 2020-0 Yes 10mg Take 10 mg U nivers 10 mg 7-22 by mouth. ity of tablet 00:00: [place] 00 Medical Branch tamsulosin Yes tamsulosin U T (Flomax) 3-10 0.4 mg Health 0.4 MG 24 00:00: capsule hr capsule 00 tamsulosin Yes tamsulosin U T (Flomax) 3-10 0.4 mg Health 0.4 MG 24 00:00: capsule hr capsule 00 tamsulosin Yes tamsulosin U nivers 0.4 mg 24 3-10 0.4 mg ity of hr capsule 00:00: capsule [place] tadalafil 2021- No 1 (one) UT (Cialis) 5 3-03 11-06 time each Hea lth MG tablet 00:00: 05:59 day at the 00 :00 same time. tadalafil 2020-0 2021- No 1 (one) UT (Cialis) 5 3-10 -06 time each Hea lth MG tablet 00:00: 05:59 day at the 00 :00 same time. tadalafiL 5 2020-2021- No 1 (one) Un citlali mg tablet 3-10 -06 time each ity of 00:00: 05:59 day at the [place] 00 :00 same time. Medical Branch Neomycin-Po Neomycin-Po 2019- Yes Na Alford [address] lymyxin-HC lymyxin-HC 1-07 into [place] es - 00:00: affected [facility]oria 00 ear l Outpati ent Clinics Breo Breo 2020- No Na Alford [address] Ellipta Ellipta 2-25 06-06 [facility] - 00:00: 00:00 [facility]oria 00 :00 l Outpati ent Clinics gabapentin gabapentin No 1capsul BID gabapentin [place] [...] route. tadalafil tadalafil No 1 Q1D tadalafil [facility] 10 mg 10 mg 10 mg Family tablet Take tablet Take tablet Practic 1 tablet 1 tablet Take 1 e every day every day tablet by oral by oral every day route. route. by oral route. tamsulosin tamsulosin No 1capsul Q1D tamsulosin [facility] 0.4 mg 0.4 mg e(s) 0.4 mg Family capsule capsule capsule Practi c Take 1 Take 1 Take 1 e capsule capsule capsule every day every day every day by oral by oral by oral route. route. route. Fluticasone Fluticasone Yes Na Alford [address] [facility] Propionate Propionate each [place] es - nostril [facility] Singulair Singulair Yes Na Alford TAKE [address] [facility] TABLET BY [facility] - MOUTH Memoria EVERY DAY [facility] Propranolol Propranolol Yes Na Alford TAKE [address] [facility] HCl HCl TABLET BY [facility] - MOUTH Memoria TWICE A l DAY [facility] Lyrica Lyrica Yes Na Alford [address] [facility] Claritin Claritin 2019- No Na Alford [address] [facility] 11-12 [facility] - 00:00 Memoria :00 [facility] ent [facility] Immunizations Ordered Filled Immunization Date Status Comments [facility] e Immunization Name Name Afluria single dose Afluria single dose 2019-02-[address] [facility] - 00:[facility]00 [facility] Vital Signs Vital Name Observation Time Observation Value Comments Source Systolic blood 2021-07-30 15:49:00 138 mm[Hg] Univer sity of pressure [facility] Diastolic blood 2021-07-30 15:49:00 84 mm[Hg] Unive rsity of [facility] Heart rate 2021-07-30 15:49:00 90 /min [facility] Body temperature 2021-07-30 15:48:00 36.83 Deja [facility] Respiratory rate 2021-07-30 15:48:00 18 /min [facility] Body height 2021-07-30 15:48:00 182.9 cm [facility] Body weight 2021-07-30 15:48:00 146.058 kg Universi ty [facility] BMI 2021-07-30 15:48:00 43.67 kg/m2 General acute hospital Oxygen saturation in 2021-07-30 15:48:00 99 /min [facility] Arterial blood by [facility] Pulse oximetry Branch Body height 2021-02-28 18:54:00 [facility] 2021-02-28 18:54:00 [facility]347 [facility] BMI 2021-02-28 18:54:00 37.13 kg/m2 [facility] Height 2019-12-21 00:00:00 76 [in_i] [facility] Practice Height 2019-11-10 00:00:00 76 [in_i] [facility] BMI (Body Mass 2019-11-10 00:00:00 36.5 kg/m2 [facility] Family Index) Practice Body Weight 2019-11-10 00:00:00 300 [lb_av] [facility] Procedures Procedure Date / Time Performed Performing Clinician [facility] e REFERRAL- 2021-07-05 06:01:00 [facility]SE Name Medical [place] Plan of Care Planned Activity Planned Date Details Comments Source Instructions [facility] Encounters Start End Encounter Admission Attending Care Care Encounter Source Date/Time Date/Time Type Type Clinicians Facility Department ID 2021-07-[address] [facility] [id number] 08:04:00 [facility] 2021-07-19 Outpatient Sanjana Alford STLMLC STLMLC [id number] 14:10[facility]00 [facility] 2021-07-05 Outpatient Alford, Na STLMLC STLMLC [id number] 13:39:01 [facility] 2021-07-04 Outpatient Alford, Na STLMLC STLMLC [id number] 14:39:57 [facility] 2021-07-04 Outpatient Alford, Na STLMLC STLMLC [id number] 13:33:38 [id number] [facility] 2021-07-04 Outpatient Alford, Na STLMLC STLMLC [id number] 12:38:19 [id number] [facility] 2021-07-04 Outpatient Alford, Na STLMLC STLMLC [id number] 12:36:51 [id number] [facility] 2021-07-04 Outpatient Alford, Na STLMLC STLMLC [id number] 12:36:06 [id number] [facility] 2021-07-04 Outpatient Alford, Na STLMLC STLMLC [id number] 12:24:12 [id number] [facility] 2021-07-04 Outpatient Alford, Na STLMLC STLMLC [id number] 11:58:27 [id number] [facility] 2021-07-04 Outpatient Alford, Na STLMLC STLMLC [id number] 11:57:54 [id number] [facility] 2021-07-04 Outpatient Alford, Na STLMLC STLMLC [id number] 11:32:43 [id number] [facility] 2021-07-04 Outpatient Alford, Na STLMLC STLMLC [id number] 11:13:46 [id number] [facility] 2021-07-04 Outpatient Alford, Na STLMLC STLMLC [id number] 10:58:31 [id number] [facility] 2021-07-30 2021-07-30 Office Delio [facility] [id number] Univers 09:30:00 10:42:24 Visit Musa LEE [id number] i ty of [place] [id number] [place] PROFESS[place] [id number] Fl dical [address] 2021-07-23 2021-07-23 ambulatory [facility]LMLC [facility] [id number] [facility] 2021-07-05 2021-07-05 Orders Doctor KLINE [id number] Univers 00:00:00 00:00:00 Only Unassigned, MARTY [id number] [facility] [id number] Pramod as [id number] [address] 2021-07-03 2021-07-03 ambulatory [facility]LMLC [facility] [id number] [facility] 2021-07-03 2021-07-03 ambulatory [facility]LMLC [facility]C [id number] [facility] 2021-07-02 2021-07-02 ambulatory [facility]LMLC [facility]LMLC [id number] [facility] 2021-06-28 2021-06-28 ambulatory [facility]LMLC [facility] [id number] [facility] 2021-06-25 2021-06-25 ambulatory [facility]LMLC [facility]C [id number] [facility] 2021-05-29 2021-05-29 ambulatory [facility]LMLC [facility]LMLC [id number] [facility] 2021-05-25 2021-05-25 ambulatory [facility]LMLC STLC [id number] [facility] 2021-05-22 2021-05-22 ambulatory [facility]LMLC STLC [id number] [facility] 2021-05-02 2021-05-02 ambulatory [facility]LMLC STLC [id number] [facility] 2021-04-21 2021-04-21 ambulatory [facility]LMLC STLC [id number] [facility] 2021-03-19 2021-03-19 [id number] 2021-02-28 2021-02-28 Office ELIJAH Singer 6400 [id number] [place] 13:30:30 14:55:00 Visit John FREEDMAN [id number] [facility] [id number] 2021-02-06 2021-02-06 Outpatient [facility]LMLC STLC [id number] [facility] 2021-01-30 2021-01-30 [id number] 2021-01-12 2021-01-12 Outpatient [facility]MLC STLC [id number] [facility] 2021-01-10 2021-01-10 Outpatient [facility] ST[facility] [id number] [facility] 2020-12-08 2020-12-08 Outpatient [facility]C STLC [id number] [facility] 2020-08-16 2020-08-16 Outpatient [facility]MLC [facility] [id number] [facility] 2020-08-11 2020-08-11 Outpatient [facility]LMLC [facility] [id number] [facility] 2020-08-10 2020-08-10 Outpatient [facility]MLC [facility] [id number] [facility] 2020-08-08 2020-08-08 Outpatient [facility]MLC [facility] [id number] [facility] 2020-07-17 2020-07-17 Outpatient [facility]MLC [facility] [id number] [facility] 2020-07-03 2020-07-03 Outpatient [facility]MLC [facility] [id number] [facility] 2020-04-26 2020-04-26 Outpatient [facility]MLC [facility] [id number] [facility] 2020-04-26 2020-04-26 Outpatient [facility]MLC [facility] [id number] [facility] 2020-04-03 2020-04-03 Outpatient [facility]MLC [facility] [id number] [facility] 2020-01-13 2020-01-13 Outpatient Belén-Mbayo VFP VFP [id number] Village 08:54:00 08:54:00 _A_AH [id number] Family Practic e 2020-01-07 2020-01-07 Outpatient Belén-Mbayo VFP VFP [id number] Village 01:34:00 01:34:00 _A_AH [id number] Family Practic e 2020-01-03 2020-01-03 [facility] [id number] 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 2019-12-20 2019-12-20 Outpatient Belén-Mbayo VFP VFP [id number] Village 03:45:00 03:45:00 _A_AH 47021 Family Practic e 2019-12-18 2019-12-18 Outpatient Belén-Mbayo VFP VFP [id number] Village 02:22:00 02:22:00 _A_AH 20088 Family Practic e 2019-12-15 2019-12-15 Outpatient Belén-Mbayo VFP VFP [id number] [facility] 10:33:00 10:33:00 _A_AH [id number] Family Practic e 2019-12-07 2019-12-07 [facility] [id number] [facility] 15:11:00 15:11:00 [place] [facility] 2019-11-15 2019-11-15 Outpatient Belén-Mbayo VFP VFP [id number] Village 11:23:00 11:23:00 _A_AH 51023 Family Practic e 2019-11-15 2019-11-15 Outpatient Belén-Mbayo VFP VFP [id number] Village 11:23:00 11:23:00 _A_AH [id number] Family Practic e 2019-11-10 2019-11-10 Marilin VFP [place] - [id number] V illage 00:00:00 00:00:00 Belén-ay [facility] jihan daniels 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 2019-10-04 2019-10-04 [facility] [id number] 09:20:00 09:20:00 t Profista s - Drive [facility] Medicine Outpati ent Clinics 2019-08-23 2019-08-23 [facility] [id number] 09:40:00 09:40:00 t [place] [employer] s - [place] [facility] Medicine Outpati ent Clinics 2019-08-05 2019-08-05 Outpatient Belén-[facility] VFP VFP [id number] [facility] 04:24:00 04:24:00 _A_AH [id number] Family Practic e 2019-08-05 2019-08-05 Outpatient [facility]-ayo VFP VFP [id number] [facility] 04:24:00 04:24:00 _A_AH [id number] Family Practic e 2019-06-15 2019-06-15 [facility] [id number] 08:40:00 08:40:00 t [place] [employer] s - [place] [facility] Medicine Outpati ent Clinics 2019-05-17 2019-05-17 [facility] [id number] 09:40:00 09:40:00 t [place] [employer] s - Drive [facility] Medicine Outpati ent Clinics 2019-02-15 2019-02-15 [facility] [id number] 09:40:00 09:40:00 t [place] [employer] s - [place] [facility] Medicine Outpati ent Clinics 2018-12-03 2018-12-03 [facility] [id number] 11:43:00 11:43:00 t [place] [employer] - [place] [facility] Medicine Outpati ent Clinics 2018-11-09 2018-11-09 [facility] [id number] 08:40:00 08:40:[address] Luke s - Drive [facility] Medicine Outpati ent Clinics 2018-08-03 2018-08-03 [facility] [id number] 09:00:00 09:00:00 t [place] [employer] s - Drive [facility] Medicine Outpati ent Clinics 2018-06-22 2018-06-22 [facility] [id number] 16:52:00 16:52:00 t [place] [employer] s - Drive [facility] Medicine Outpati ent Clinics 2018-05-06 2018-05-06 [facility] [id number] 11:15:00 11:15:00 t [place] [employer] s - Drive [facility] Medicine Outpati ent Clinics 2018-03-09 2018-03-09 [facility] [id number] 16:06:00 16:06:00 t [place] [employer] s - Drive [facility] Medicine Outpati ent Clinics 2018-02-06 2018-02-06 [facility] [id number] 08:30:00 08:30:00 t [place] [employer] s - Drive [facility] Medicine Outpati ent Clinics 2017-11-07 2017-11-07 [facility] [id number] 08:30:00 08:30:00 Profista s - Drive [facility] Medicine Outpati ent Clinics Results Test Description Test Time Test Comments Results Result Comments Source SARS-COV2/RT-PCR ([facility]) 2019-11-27 05:41:00 Test Item Value Reference Range Interpretation Comme nts SARS-COV2/RT-PCR (test code = 2809290) Detected Not Detected, N egative AA SARS-COV-2 PERFORMING LAB (test code = 5036600) [facility] [place] [place] Results are for the detection of SARS-CoV-2 [...] copies/mL.This SARS CoV-2 test is a rapid, [id number]-GGC test intended for the qualitative detection of [...] 564(g) of the Act.Fact Sheet for Healthcare Providers:https://www.Red-rabbit/ Documents/Xpert%20Xpress%20SARS%20CoV-2/Fact%20Sheets/3023802%55DHEM-NUY-4%20HE ALTHCARE%20PROVIDERS%20FACT%20SHEET.pdfFact Sheet for Healthcare Patients:https://www.Red-rabbit/Documents/Xpert%20Xpress %20SARS%20CoV-2/Fact%20Sheets/3023801%36QZFZ-YST-8%20PATIENT%20FACT%20SHEET.pdf Performing Laboratory:[facility] [place] [address]
[2021-08-03 17:31] LABS: Absolute Lymphocytes (CBC) 1.2 K/uL (0.7-4.9); Hematocrit 42.1 % (39.6-49.0); Lymphocytes % 8.7 % (15.3-44.8); MPV 7.6 fL (7.6-11.3); RBC Red Blood Cell Count 4.47 M/uL (4.33-5.43)
[2021-08-03 17:35] LABS: Protime INR 1.18
--- NOTE | 2021-08-03 17:35 | RAD REPORT ---
EXAM DESCRIPTION: CT - Ct Stroke Brain Wo Cont - 08/03/2021 5:26 pm CLINICAL HISTORY: CONFUSED COMPARISON: Ct Stroke Brain Wo Cont dated 10/06/2020; Head Brain W/Wo Con dated 04/09/2018 TECHNIQUE: All CT scans are performed using dose optimization technique as appropriate and may inclu de automated exposure control or mA/KV adjustment according to patient size. FINDINGS: No intracranial hemorrhage, hydrocephalus or extra-axial fluid collection.No areas of brai n edema or evidence of midline shift. Changes of left frontal craniotomy. 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 The paranasal sinuses and mastoids are clear. IMPRESSION: No acute intracranial abnormality. Surgical changes from left frontal craniotomy and an eurysm clipping. Discussed with Dr. Amaro by Dr. Briones at 1579 on 08/03/21
[2021-08-03 17:40] LABS: Potassium 3.8 mmol/L (3.5-5.1)
[2021-08-03 17:50] LABS: Urine Blood Trace-intact (Negative); Urine Glucose Negative (Negative); Urine Protein Negative (Negative)
[2021-08-03 18:05] LABS: Barbiturates NEGATIVE (NEGATIVE); Benzodiazepines NEGATIVE (NEGATIVE); Cocaine NEGATIVE (NEGATIVE); METHAMPHETAM NEGATIVE (NEGATIVE); Methadone NEGATIVE (NEGATIVE); Opiates NEGATIVE (NEGATIVE); Phencyclidine NEGATIVE (NEGATIVE); THC Cannibis NEGATIVE (NEGATIVE)
[2021-08-03] MEDS ORDERED: NA CHLORIDE 0.9% 1,000 ML ONE (18:06)
[2021-08-03] MEDS ORDERED: METOCLOPRAMIDE 10 MG/2mL INJ ONE (18:19)
[2021-08-03] MEDS ORDERED: KETOROLAC 30 MG/ML INJ ONE (18:20)
--- NOTE | 2021-08-03 18:31 | RAD REPORT ---
EXAM DESCRIPTION: RAD - Chest Single View - 08/03/2021 5:50 pm CLINICAL HISTORY: code stroke COMPARISON: Chest Single View dated 10/06/2020; Chest Single View dated 11/26/2019; Chest Single View dated 04/20/2018; Chest Single View dated 08/01/2017 FINDINGS: Lines: None. Lungs: No evidence of edema or pneumonia. Pleural: No significant pleural effusions or pneumothorax. Cardiac: The heart size is within normal limits. Bones: No acute fractures. Other: IMPRESSION: No acute cardiopulmonary disease.
--- NOTE | 2021-08-03 18:35 | EDPHYS ---
Physician Documentation [facility] Name: Winston Garcia Age: 66 yrs Sex: Male : 1955 Arrival Date: 08/03/2021 Time: 17:06 Bed 2 Private MD: ED Physician David Amaro HPI: 08/03 17:41 This 66 yrs old Male presents to ER via EMS with complaints of Unresponsive. ma2 17:41 Onset: The symptoms/episode began/occurred gradually, 1 day(s) ago. Associated signs ma2 and symptoms: Pertinent negatives: anorexia, chest pain, diarrhea, fever, hematuria, shortness of breath, vomiting, vomiting blood. Severity of pain: At its worst the pain was moderate in the emergency department the pain is unchanged. The patient has not experienced similar symptoms in the past. 17:41 66-year-old male history of brain aneurysm, prior craniotomy, who presented with AMS ma2 for 1 day, family states they saw him last time yesterday at 5 PM when he was normal, they came to check on him today where he was difficult to awake. Historical: - Allergies: 17:09 No Known Allergies; ss - PMHx: 17:09 brain aneurysm; Hyperlipidemia; Hypertension; ss - Immunization history:: Adult Immunizations. - Social history:: Smoking status: Patient denies any tobacco usage or history of. ROS: 17:41 Constitutional: Negative for fever, chills, and weight loss. ma2 17:41 Unable to obtain ROS due to obtunded state. Exam: 17:41 Constitutional: This is a well developed, well nourished patient who is awake, alert, ma2 and in no acute distress. Head/Face: Normocephalic, atraumatic. Eyes: Pupils equal round and reactive to light, extra-ocular motions intact. Lids and lashes normal. Conjunctiva and sclera are non-icteric and not injected. Cornea within normal limits. Periorbital areas with no swelling, redness, or edema. ENT: Nares patent. No nasal discharge, no septal abnormalities noted. Tympanic membranes are normal and external auditory canals are clear. Oropharynx with no redness, swelling, or masses, exudates, or evidence of obstruction, uvula midline. Mucous membranes moist. Neck: Trachea midline, no thyromegaly or masses palpated, and no cervical lymphadenopathy. Supple, full range of motion without nuchal rigidity, or vertebral point tenderness. No Meningismus. Chest/axilla: Normal chest wall appearance and motion. Nontender with no deformity. No lesions are appreciated. Cardiovascular: Regular rate and rhythm with a normal S1 and S2. No gallops, murmurs, or rubs. Normal PMI, no JVD. No pulse deficits. Respiratory: Lungs have equal breath sounds bilaterally, clear to auscultation and percussion. No rales, rhonchi or wheezes noted. No increased work of breathing, no retractions or nasal flaring. Abdomen/GI: Soft, non-tender, with normal bowel sounds. No distension or tympany. No guarding or rebound. No evidence of tenderness throughout. Skin: Warm, dry with normal turgor. Normal color with no rashes, no lesions, and no evidence of cellulitis. MS/ Extremity: Pulses equal, no cyanosis. Neurovascular intact. Full, normal range of motion. Neuro: Patient is somnolent, best response is follow commands and open eyes to verbal commands, patient is sleepy, does not cooperate with exam, moving all extremities Vital Signs: 17:03 BP 149 / 83; Pulse 92; Resp 13; Pulse Ox 96% on R/A; ss 17:30 BP 160 / 95; Pulse 90; Resp 14; Pulse Ox 94% on R/A; ke1 18:00 BP 140 / 94; Pulse 87; Resp 14; Pulse Ox 95% on R/A; ke1 18:30 BP 142 / 89; Pulse 89; Resp 16; Pulse Ox 95% on R/A; ke1 19:40 BP 127 / 105; Pulse 84; Resp 14; Pulse Ox 97% on R/A; Pain 0/10; lg3 NIH Stroke Scale Scores: 18:30 NIHSS Score: 0 jd3 19:10 NIHSS Score: 0 ke1 [place] Coma Score: 17:06 Eye Response: none(1). Verbal Response: none(1). Motor Response: none(1). Total: 3. ke1 17:15 Eye Response: to pain(2). Verbal Response: oriented(5). Motor Response: localizes ke1 pain(5). Total: 12. 18:30 Eye Response: spontaneous(4). Verbal Response: oriented(5). Motor Response: obeys ke1 commands(6). Total: 15. MDM: 17:39 Patient medically screened. ct2 18:34 Differential diagnosis: pancreatitis, urinary tract infection, Altered mental status. ct2 Data reviewed: vital signs, nurses notes. Counseling: I had a detailed discussion with the patient and/or guardian regarding: the historical points, exam findings, and any diagnostic results supporting the discharge/admit diagnosis, the presence of at least one elevated blood pressure reading (>120/80) during this emergency department visit, the need for outpatient follow up. Response to treatment: the patient's symptoms have markedly improved after treatment. 08/03 17:23 Order name: Basic Metabolic Panel; Complete Time: 17:41 08/03 17:23 Order name: CBC with Diff; Complete Time: 17:36 08/03 17:23 Order name: Protime (+inr); Complete Time: 17:36 08/03 17:23 Order name: Ptt, Activated; Complete Time: 17:36 08/03 17:40 Order name: ETOH Level [facility] 08/03 17:40 Order name: UDS [facility] 08/03 17:23 Order name: CT Stroke Brain w/o Contrast; Complete Time: 17:36 08/03 17:41 Order name: Alcohol Serum/Plasma; Complete Time: 18:28 [facility] 08/03 17:41 Order name: Urine Drug Screen; Complete Time: 18:28 [facility] 08/03 17:49 Order name: Urine Dipstick-Ancillary; Complete Time: 18:28 [facility] 08/03 17:52 Order name: Blood Culture Adult (2) 08/03 17:52 Order name: Blood Culture [facility] 08/03 18:38 Order name: COVID-19 SARS RT PCR (Document "Date of Onset" if Symptomatic) 08/03 18:38 Order name: SARS-COV-2 RT PCR [facility] 08/03 17:23 Order name: Stroke CXR 1 View 08/03 17:23 Order name: EKG; Complete Time: 17:24 08/03 17:23 Order name: Accucheck; Complete Time: 17:25 08/03 17:23 Order name: Cardiac monitoring; Complete Time: 17:25 08/03 17:23 Order name: EKG - Nurse/Tech; Complete Time: 17:26 ss 08/03 17:23 Order name: IV Saline Lock; Complete Time: 17:26 ss 08/03 17:23 Order name: Labs collected and sent; Complete Time: 17:26 ss 08/03 17:23 Order name: NPO; Complete Time: 17:26 ss 08/03 17:23 Order name: O2 Per Protocol; Complete Time: 17:26 ss 08/03 17:23 Order name: O2 Sat Monitoring; Complete Time: 17:26 ss 08/03 17:23 Order name: Stroke Swallow Screen; Complete Time: 19:16 ss 08/03 17:36 Order name: Straight Cath; Complete Time: 17:57 jd3 Administered Medications: 18:08 Drug: NS 0.9% 1000 ml Route: IV; Rate: 1 bolus; Site: left antecubital; ke1 20:35 Follow up: IV Status: Completed infusion; IV Intake: 1000ml lg3 18:27 Drug: Ketorolac 30 mg Route: IVP; Site: left antecubital; ke1 18:50 Follow up: Response: Pain is decreased; Denies pain ke1 18:27 Drug: Reglan (metoCLOPramide) 10 mg Route: IVP; Site: left antecubital; ke1 19:15 Follow up: Response: No adverse reaction ke1 Disposition Summary: 08/03/21 18:35 Hospitalization Ordered Hospitalization Status: Observation ma2 Provider: David Venegas Location: Telemetry/MedSurg (observation) ma2 Condition: Stable ma2 Problem: new ma2 Symptoms: are unchanged ct2 Bed/Room Type: Standard [facility] Room Assignment: 204(08/03/21 20:17) mw Diagnosis - Altered mental status, unspecified ma2 Forms: - Medication Reconciliation Form ma2 - SBAR form ct2 NIH Stroke Scale - NIH Stroke Score Date: 08/03/2021 Time: 18:30 Total Score = 0 1a. Level of Consciousness (LOC) - 0(Alert) 1b. Level of Consciousness (LOC) (Month \\T\\ Age) - 0(Both) 1c. LOC Commands (Open \\T\\ Closes Eyes/Air Deodorizer Servicer) - 0(Both) 2. Best Gaze (Lateral Gaze Paresis) - 0(Normal) 3. Visual Field Loss - 0(No visual loss) 4. Facial Palsy - 0(Normal) 5a. Left Arm: Motor (10-second hold) - 0(No drift) 5b. Right Arm: Motor (10-second hold) - 0(No drift) 6a. Left Leg: Motor (5-second hold - always test supine) - 0(No drift) 6b. Right Leg: Motor (5-second hold - always test supine) - 0(No drift) 7. Limb Ataxia (finger/nose \\T\\ heel/dixon - test with eyes open) - 0(Absent) 8. Sensory Loss (pinprick arms/legs/face) - 0(Normal) 9. Best Language: Aphasia (description/naming/reading) - 0(No aphasia) 10. Dysarthria (speech clarity - read or repeat words) - 0(Normal) 11. Extinction and Inattention (visual/tactile/auditory/spatial/personal) - 0(No abnormality) Initials: jd3 NIH Stroke Scale - NIH Stroke Score Date: 08/03/2021 Time: 19:10 Total Score = 0 1a. Level of Consciousness (LOC) - 0(Alert) 1b. Level of Consciousness (LOC) (Month \\T\\ Age) - 0(Both) 1c. LOC Commands (Open \\T\\ Closes Eyes/Air Deodorizer Servicer) - 0(Both) 2. Best Gaze (Lateral Gaze Paresis) - 0(Normal) 3. Visual Field Loss - 0(No visual loss) 4. Facial Palsy - 0(Normal) 5a. Left Arm: Motor (10-second hold) - 0(No drift) 5b. Right Arm: Motor (10-second hold) - 0(No drift) 6a. Left Leg: Motor (5-second hold - always test supine) - 0(No drift) 6b. Right Leg: Motor (5-second hold - always test supine) - 0(No drift) 7. Limb Ataxia (finger/nose \\T\\ heel/dixon - test with eyes open) - 0(Absent) 8. Sensory Loss (pinprick arms/legs/face) - 0(Normal) 9. Best Language: Aphasia (description/naming/reading) - 0(No aphasia) 10. Dysarthria (speech clarity - read or repeat words) - 0(Normal) 11. Extinction and Inattention (visual/tactile/auditory/spatial/personal) - 0(No abnormality) Initials: ke1 Signatures: Dispatcher [employer] Izabela Schaffer RN RN Charlotte Brock RN Cas Gimenez RN RN David Coker MD MD ma2 Gibson, Lacie, RN RN lg3 Lexi Ryan RN RN ke1 Corrections: (The following items were deleted from the chart) 20:17 18:35 corinne trejo
--- NOTE | 2021-08-03 18:35 | ER ---
[facility]'s Notes [facility] Name: Winston Garcia Age: 66 yrs Sex: Male : 1955 Arrival Date: 08/03/2021 Time: 17:06 Bed 2 Private MD: Diagnosis: Altered mental status, unspecified Presentation: 08/03 17:03 Initial Sepsis Screen: Does the patient meet any 2 criteria? No. Patient's initial ss sepsis screen is negative. Does the patient have a suspected source of infection? No. Patient's initial sepsis screen is negative. Risk Assessment: Do you want to hurt yourself or someone else? Unable to obtain. Onset of symptoms is unknown. Care prior to arrival: IV initiated. 18 gauge in R AC, 20 gauge in L AC Glucose check: 131. 17:03 Acuity: LOBITO 1 ss 17:05 Note last known well was about 1630 per EMS. jd3 17:06 Chief complaint: EMS states: Found unresponsive by family at home. Unknown last known ss well. HX of brain aneurism. VS en route: 138/72, 96 pulse 95% on 4 L NC. Coronavirus screen: Client denies travel out of the [place] in the last 14 days. Ebola Screen: Unable to complete the Ebola screening because:. 17:06 Method Of Arrival: EMS: [facility] ss Historical: - Allergies: 17:09 No Known Allergies; ss - PMHx: 17:09 brain aneurysm; Hyperlipidemia; Hypertension; ss - Immunization history:: Adult Immunizations. - Social history:: Smoking status: Patient denies any tobacco usage or history of. Screenin:30 VAN Screening: Arm Drift: Patient shows no arm weakness. Patient is VAN negative. jd3 Patient has been NPO before screening. The patient is alert, able to follow commands. pt with changing level of consciousness. failed bedside swallow due to changes of level of consciousness The patient does not exhibit slurred or garbled speech The patient is not exhibiting difficulty speaking. The patient does not exhibit difficulty understanding words. 19:10 Abuse screen: Denies threats or abuse. Nutritional screening: No deficits noted. ke1 Tuberculosis screening: No symptoms or risk factors identified. Fall Risk Fall in past 12 months (25 points). No secondary diagnosis (0 pts). IV access (20 points). Ambulatory Aid- None/Bed Rest/Nurse Assist (0 pts). Gait- Normal/Bed Rest/Wheelchair (0 pts) Mental Status- Oriented to own ability (0 pts). Total [place] Fall Scale indicates High Risk Score (45 or more points). Fall prevention measures have been instituted. Side Rails Up X 2 Placed Close to Nursing Station Frequent Obs/Assessments Occuring Family Present and informed to notify staff if the need to leave the bedside. Assessment: 17:06 Reassessment: Patient unresponsive, lying unconscious V.O for RSI to intubate patient. ke1 17:10 Reassessment: RSI at bedside, MD ready for intubation. ke1 17:13 Neuro: Level of Consciousness is unresponsive. ke1 17:15 Reassessment: Pt reacted to painful stimuli; eyes open and answering questions to vg1 Trace HAAS. Pt stated 'the last thing I remember was walking to the restroom and I became weak and dizzy and fell' Pt unsure if hit head. 17:15 Musculoskeletal: Reports weakness in left side due to Hx of nerve damage. ke1 17:15 Reassessment: Unable to accurately complete NIH because patient is drowsy and fall ke1 asleep during instructions. 17:20 Reassessment: Pt taken to CT. vg1 17:21 Reassessment: spouse stated pt had N/V and headache since yesterday. vg1 17:24 Reassessment: Patient drowsy. ke1 17:30 Reassessment: Back from CT, Patient responsive to pain. ke1 17:35 General: Appears obese, Behavior is drowsy. Pain: Unable to use pain scale. Patient is ke1 unresponsive. 18:08 General: Appears obese, Behavior is unresponsive. Neuro: Level of Consciousness is ke1 unresponsive. Cardiovascular: Capillary refill < 3 seconds Patient's skin is warm and dry. Pulses are all present. Respiratory: Airway is compromised Respiratory effort is weak, Breath sounds are diminished bilaterally. GI: Abdomen is round obese. : Urine is clear, Swelling noted on scrotum redness. 18:30 General: Appears comfortable, Behavior is calm, cooperative, appropriate for age. Pain: jd3 Denies pain. Neuro: Level of Consciousness is awake, alert, obeys commands, Oriented to person, place, time, situation. 19:39 Reassessment: Patient appears in no apparent distress at this time. Patient and/or lg3 family updated on plan of care and expected duration. Pain level reassessed. Patient denies pain at this time. Patient states feeling better. Patient states symptoms have improved. Neuro: Level of Consciousness is awake, alert, obeys commands, Oriented to person, place, time, situation. Respiratory: Airway is patent Respiratory effort is even, unlabored, Respiratory pattern is regular, symmetrical. 20:30 Reassessment: attempted to call report. nurse not available. will try again. . lg3 Vital Signs: 17:03 BP 149 / 83; Pulse 92; Resp 13; Pulse Ox 96% on R/A; ss 17:30 BP 160 / 95; Pulse 90; Resp 14; Pulse Ox 94% on R/A; ke1 18:00 BP 140 / 94; Pulse 87; Resp 14; Pulse Ox 95% on R/A; ke1 18:30 BP 142 / 89; Pulse 89; Resp 16; Pulse Ox 95% on R/A; ke1 19:40 BP 127 / 105; Pulse 84; Resp 14; Pulse Ox 97% on R/A; Pain 0/10; lg3 [place] Coma Score: 17:06 Eye Response: none(1). Verbal Response: none(1). Motor Response: none(1). Total: 3. ke1 17:15 Eye Response: to pain(2). Verbal Response: oriented(5). Motor Response: localizes ke1 pain(5). Total: 12. 18:30 Eye Response: spontaneous(4). Verbal Response: oriented(5). Motor Response: obeys ke1 commands(6). Total: 15. NIH Stroke Scale Scores: 18:30 NIHSS Score: 0 jd3 19:10 NIHSS Score: 0 ke1 ED Course: 17:06 Patient arrived in ED. ss 17:09 Triage completed. ss 17:09 Arm band placed on right wrist. ss 17:15 David Amaro MD is Attending Physician. ma2 17:26 CT Stroke Brain w/o Contrast In Process Unspecified. EDMS 17:30 Lexi Ryan RN is Primary Nurse. ke1 17:45 Straight cath inserted, using sterile technique, 16 Fr. Specimen obtained. Returned ke1 clear yellow urine. 17:50 Stroke CXR 1 View In Process Unspecified. EDMS 18:35 David Venegas MD is Hospitalizing Provider. ma2 20:35 COVID-19 SARS RT PCR (Document "Date of Onset" if Symptomatic) Sent. lg3 20:46 No provider procedures requiring assistance completed. Patient admitted, IV remains in lg3 place. 20:47 Patient has correct armband on for positive identification. Placed in gown. Bed in low lg3 position. Call light in reach. Side rails up X2. senior care specialist on. Pulse ox on. NIBP on. Administered Medications: 18:08 Drug: NS 0.9% 1000 ml Route: IV; Rate: 1 bolus; Site: left antecubital; ke1 20:35 Follow up: IV Status: Completed infusion; IV Intake: 1000ml lg3 18:27 Drug: Ketorolac 30 mg Route: IVP; Site: left antecubital; ke1 18:50 Follow up: Response: Pain is decreased; Denies pain ke1 18:27 Drug: Reglan (metoCLOPramide) 10 mg Route: IVP; Site: left antecubital; ke1 19:15 Follow up: Response: No adverse reaction ke1 Intake: 20:35 IV: 1000ml; Total: 1000ml. lg3 Outcome: 18:35 Decision to Hospitalize by Provider. ma2 20:46 Admitted to Med/surg accompanied by nurse, via wheelchair, room 204, Report called to lg3 ROSIE Samson 20:47 Condition: stable 3 20:47 Instructed on the need for admit. 21:01 Patient left the ED. lg3 NIH Stroke Scale - NIH Stroke Score Date: 08/03/2021 Time: 18:30 Total Score = 0 1a. Level of Consciousness (LOC) - 0(Alert) 1b. Level of Consciousness (LOC) (Month \\T\\ Age) - 0(Both) 1c. LOC Commands (Open \\T\\ Closes Eyes/Adjunct Nursing Faculty) - 0(Both) 2. Best Gaze (Lateral Gaze Paresis) - 0(Normal) 3. Visual Field Loss - 0(No visual loss) 4. Facial Palsy - 0(Normal) 5a. Left Arm: Motor (10-second hold) - 0(No drift) 5b. Right Arm: Motor (10-second hold) - 0(No drift) 6a. Left Leg: Motor (5-second hold - always test supine) - 0(No drift) 6b. Right Leg: Motor (5-second hold - always test supine) - 0(No drift) 7. Limb Ataxia (finger/nose \\T\\ heel/dixon - test with eyes open) - 0(Absent) 8. Sensory Loss (pinprick arms/legs/face) - 0(Normal) 9. Best Language: Aphasia (description/naming/reading) - 0(No aphasia) 10. Dysarthria (speech clarity - read or repeat words) - 0(Normal) 11. Extinction and Inattention (visual/tactile/auditory/spatial/personal) - 0(No abnormality) Initials: jd3 NIH Stroke Scale - NIH Stroke Score Date: 08/03/2021 Time: 19:10 Total Score = 0 1a. Level of Consciousness (LOC) - 0(Alert) 1b. Level of Consciousness (LOC) (Month \\T\\ Age) - 0(Both) 1c. LOC Commands (Open \\T\\ Closes Eyes/Adjunct Nursing Faculty) - 0(Both) 2. Best Gaze (Lateral Gaze Paresis) - 0(Normal) 3. Visual Field Loss - 0(No visual loss) 4. Facial Palsy - 0(Normal) 5a. Left Arm: Motor (10-second hold) - 0(No drift) 5b. Right Arm: Motor (10-second hold) - 0(No drift) 6a. Left Leg: Motor (5-second hold - always test supine) - 0(No drift) 6b. Right Leg: Motor (5-second hold - always test supine) - 0(No drift) 7. Limb Ataxia (finger/nose \\T\\ heel/dixon - test with eyes open) - 0(Absent) 8. Sensory Loss (pinprick arms/legs/face) - 0(Normal) 9. Best Language: Aphasia (description/naming/reading) - 0(No aphasia) 10. Dysarthria (speech clarity - read or repeat words) - 0(Normal) 11. Extinction and Inattention (visual/tactile/auditory/spatial/personal) - 0(No abnormality) Initials: ke1 Signatures: Dispatcher [employer] EDMS Charlotte Ramos RN RN ss Davies, Jonathon, RN RN jd3 David Amaro MD MD id2 Yoanna Sarah RN RN 3 Brooke Dimas RN RN 1 Lexi Ryan RN RN ke1 Corrections: (The following items were deleted from the chart) 17:21 17:21 Reassessment: 1 [facility] 17:51 17:06 Reassessment: Patient unresponsive, lying unconscious V.O for RSI to ke1 intubate patient ke1 18:32 17:15 Musculoskeletal: Reports weakness in left side due to Hx of nerve damage ke1 ke1
--- NOTE | 2021-08-03 19:57 | P.HP ---
Certification for Inpatient Patient admitted to: Observation With expected LOS: <2 Midnights Patient will require the following post-hospital care: None Practitioner: I am a practitioner with admitting privileges, knowledge of patient current condition, hospital course, and medical plan of care. Services: Services provided to patient in accordance with Admission requirements found in Title 42 Section 412.3 of the Code of Federal Regulations <Cheri Spain - Last Filed: 08/03/21 19:49> Patient History Date of Service: 08/03/21 Primary Care Provider: Dr. Kennedy Reason for admission: AMS, Syncope History of Present Illness: Patient is a 66-year-old male with past medical history of brain aneu rysm, HLD, HTN who presented to the ED via EMS after a syncopal episode this afternoon. Per , patient slept late today and when he woke up he took a few steps and fell to the ground. He was breathing but she could not wake him up so she called EMS. Upon arrival to the ED, patient's GCS was 3 at 17:06. Then at 17:15, it increased to 12 then 15 at 18:30. Vitals have remained stable. Patient's brain CT was unremarkable. Patient's labs were significant for WBC 13.7. Negative toxicology. Upon my assessment, patient is GCS 15, alert and oriented x4. He does not remember what happened today but is at bedside explaining. Patient and his report nothing like this has ever happened before. Patient will be admitted for observation with Dr. Pack consulting. Home medications list reviewed: Yes - Past Medical/Surgical History Diabetic: No -: HTN -: BRAIN ANUERYSMS -: Hyperlipidemia -: CYST REMOVED FROM TOP OF HEAD -: BRAIN SURGERY FOR ANEURYSMS -: Back surgery Psychosocial/ Personal History: Patient is retired, lives with his - Family History Mother -: Cancer Notes: BREAST CANCER - Social History Smoking Status: Former smoker Alcohol use: No CD- Drugs: No Caffeine use: Yes Place of Residence: Home <Cheri Spain - Last Filed: 08/03/21 19:49> Date of Service: 08/03/21 <David Venegas - Last Filed: 08/05/21 23:51> Allergies No Known Drug Allergies Allergy (Verified 08/03/21 21:57) Unknown Home Medications: Baclofen [Lioresal*] 1 tab PO BID 10/07/20 Gabapentin [Neurontin*] 1 tab PO BID 10/07/20 Loratadine [Claritin*] 10 mg PO DAILY 10/07/20 Metformin HCl [Glucophage*] 1 tab PO BID 10/07/20 Metoprolol Tartrate [Lopressor*] 25 mg PO BID 6AM 6PM #60 tab 10/07/20 Tamsulosin HCl [Flomax] 1 cap PO DAILY 10/07/20 tadalafiL [Tadalafil] 1 tab PO DAILY 10/07/20 Montelukast [Singulair*] 1 tab PO DAILY 08/04/21 Review of Systems 10-point ROS is otherwise unremarkable General: Other (headache) <Cheri Spain - Last Filed: 08/03/21 19:49> Physical Examination - Physical Exam General: Alert, In no apparent distress, Oriented x3, Cooperative, Obese HEENT: Atraumatic, PERRLA, Mucous membr. moist/pink, EOMI, Sclerae nonicteric Neck: Supple, 2+ carotid pulse no bruit, No LAD, Without JVD or thyroid abnormality Respiratory: Clear to auscultation bilaterally, Normal air movement Cardiovascular: Regular rate/rhythm, Normal S1 S2 Gastrointestinal: Normal bowel sounds, No tenderness Musculoskeletal: No tenderness Integumentary: No rashes, No cyanosis Neurological: Normal speech, Normal strength at 5/5 x4 extr, Normal tone, Sensation intact, Normal affect - Studies Laboratory Data (last 24 hrs) 08/03/21 17:00: PT 13.6 H, INR 1.18, APTT 34.4 08/03/21 17:00: WBC 13.70 H, Hgb 14.2, Hct 42.1, Plt Count 217 08/03/21 17:00: Sodium 137, Potassium 3.8, BUN 14, Creatinine 1.05, Glucose 122 H <Cheri Spain - Last Filed: 08/03/21 19:49> Assessment and Plan - Problems (Diagnosis) (1) AMS (altered mental status) Current Visit: Yes Status: Resolved Qualifiers: Altered mental status type: unspecified Qualified Code(s): R41.82 - Altered mental status, unspecified (2) Syncope and collapse Current Visit: Yes Status: Acute (3) HLD (hyperlipidemia) Current Visit: No Status: Chronic Qualifiers: Hyperlipidemia type: mixed hyperlipidemia Qualified Code(s): E78.2 - Mixed hyperlipidemia (4) Brain aneurysm Current Visit: No Status: Chronic (5) HTN (hypertension) Onset Date: 08/04/17 Current Visit: Yes Status: Chronic Qualifiers: Hypertension type: primary hypertension Qualified Code(s): I10 - Essential (primary) hypertension - Plan -Brain CT was negative, labs are normal, and patient has returned to his baseline -Patient reports he has had a stress test in the past that was normal -Echo, carotid ultrasound, and MRI ordered for evaluation of possible causes of syncope include -Continue home medications DVT PPx: Lovenox Code: Full Discharge Plan: Home Plan to discharge in: 24 Hours - Advance Directives Does patient have a Living Will: No Does patient have a Durable POA for Healthcare: No - Code Status/Comfort Care Code Status Assessed: Yes (full) Critical Care: No Time Spent Managing Pts Care (In Minutes): 70 <Cheri Spain - Last Filed: 08/03/21 19:49> Date of Service: 08/03/21 Subjective: HPI as mentioned above Physical Examination: Vitals: Afebrile vital signs are stable Physical exam: Cardiovascular: Within normal limits. Lungs: Within normal limits Abdomen: Within normal limits : Cellulitis of the scrotum Neuro: Awake, alert, oriented to person place and time Assessment: 1. Scrotal cellulitis 2. Syncope and collapse Plan: 1. Continue with current plan of care as mentioned above <David Venegas - Last Filed: 08/05/21 23:51>
[2021-08-03] MEDS ORDERED: ONDANSETRON 4 MG/2 ML VIAL IV PRN (21:18)
[2021-08-03 21:51] VITALS: BMI 38.7
[2021-08-03] MEDS: ACETAMINOPHEN 500 MG TAB PO PRN (22:44)
[2021-08-04 05:43] LABS: Absolute Lymphocytes (CBC) 1.4 K/uL (0.7-4.9); Hematocrit 39.4 % (39.6-49.0); Lymphocytes % 13.9 % (15.3-44.8); MPV 7.5 fL (7.6-11.3); RBC Red Blood Cell Count 4.19 M/uL (4.33-5.43)
[2021-08-04 05:59] LABS: Albumin 3.1 g/dL (3.4-5.0); Bilirubin Total 0.8 mg/dL (0.2-1.0); Potassium 3.7 mmol/L (3.5-5.1); Thyroid Stimulating Hormone 0.906 uIU/mL (0.360-3.740)
[2021-08-04] MEDS: ENOXAPARIN 40 MG/0.4 ML SQ SCH (08:48)
[2021-08-04] MEDS: ACETAMINOPHEN 500 MG TAB PO PRN (08:49)
--- NOTE | 2021-08-04 09:43 | RAD REPORT ---
EXAM DESCRIPTION: - CP - 08/03/2021 11:18 pm CLINICAL HISTORY: syncope Headache, syncope COMPARISON: Carotid Artery Bilateral dated 04/29/2019 TECHNIQUE: Real-time sonographic evaluation of both carotid systems was performed. Doppler interroga tion was performed with waveform tracing bilaterally. FINDINGS: Normal high resistance waveforms are noted in both external carotid arteries. The common c arotid arteries and internal carotid arteries show normal low resistance waveforms. No significant plaque formation is seen. Peak systolic and end diastolic velocity values and the ICA/ CCA ratios are in the non-hemodynamically significant range. Antegrade flow seen in both vertebral arteries. IMPRESSION: No significant atherosclerotic changes noted. No evidence of a hemodynamically significant stenosis.
[2021-08-04 12:42] LABS: Urine Appearance CLEAR (Clear); Urine Bilirubin NEGATIVE (Negative); Urine Blood NEGATIVE (Negative); Urine Color YELLOW (Yellow); Urine Glucose TRACE (Negative); Urine Protein NEGATIVE (Negative); Urine Specific Gravity 1.015 (1.005-1.030)
[2021-08-04 13:04] LABS: Urine Microscopic Reflex NO UMIC
[2021-08-04] MEDS ORDERED: HYDROCORTISONE SUC 100 MG INJ IV ONE (14:00)
[2021-08-04] MEDS ORDERED: VANCOMYCIN 3 GM in NA CHLORIDE 0.9% 500 ML IVPB ONE (14:00)
[2021-08-04] MEDS: Levofloxacin500mg IV 500 MG/100 ML BAG IV SCH (14:00)
--- NOTE | 2021-08-04 16:46 | RAD REPORT ---
EXAM DESCRIPTION: US - Scrotum Testicles - 08/04/2021 4:36 pm CLINICAL HISTORY: cellulitis Pain and swelling COMPARISON: Pelvis Wo Cont dated 08/08/2020 FINDINGS: The right testicle is surgically absent. The left testicle 4.6 x 3.6 x 2.6 cm. No intratesticular masses or evidence of testicular torsion. Epididymis appears within normal limits. Scrotal soft tissues are thickened and edematous. IMPRESSION: Moderate edema of scrotal soft tissues noted. No testicular mass or torsion findings on the left.
[2021-08-04] MEDS: TRAMADOL HCL 50 MG TAB PO PRN (21:37)
--- NOTE | 2021-08-04 23:29 | CON ---
Reason For Consultation: Consultation called because of syncopal episode and prolonged confusion aft er syncope. History Of Present Illness: Mr. Garcia is a 66-year-old right-handed patient with history of diabetes mellitus, hypertension, prostate hypertrophy, and [employer] aneurysm treated in 2007 with aneu rysm clip, who comes after a syncopal episode. Patient's is at the bedside and provided informa tion. The event was actually not the very first syncopal episode. 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 At that time, his said he just passed out, was unresponsive, was brought to [facility]. Head CT scan identified possibility of an aneurysm and he was taken by ambulance to [place] where surgery was done. He was treated with an antiepileptic medication for a month and t demetri did well. No further episodes. She said after that he had another event. The patient said he w as riding his tractor actually mowing his lawn when he passed out briefly while mowing the lawn and h it a tree. He woke up fairly quickly after that and did not do anything else to work up that episode . The current episode, patient's said he got up and actually earlier that day had been feeling very ill, was throwing up and had a sense of vertigo with the room spinning or tilting and had thrown up a few times. In any event, he got up and tried to walk to the bathroom, took a few steps and she said he collapsed straight down onto a wooden floor. The patient did not hit his head he collapsed onto his lower body. She attempted to revive him. He seemed to regain awareness. He was breathing, but he did not make sense as she was trying to speak with him. He was then evaluated by the [facility] who were contacted, and again, he was in and out of awareness, but they found he had a weak pulse and was still breathing. He came to [facility] and had a Lorenzo scale of 3 at 1706 and then 12 at 1715 and 15 at [address] His head [address] scan did not show any acute ischemic or he morrhagic findings. The study did show surgical changes from the left frontal craniotomy and aneurys m clipping. The patient does say that his clip is supposedly compatible with an MRI and that he can have an MRI. He did have a carotid artery ultrasound that showed no evidence of hemodynamically sign ificant stenosis. Total time that he was in poor level of responsiveness per his may be 45 to 5 0 minutes. Since that time, he is back to his normal self. He does not have any face, arm, or leg n umbness. Past Medical History: As noted above. In addition to allergies, dyslipidemia. Surgical History: Left anterior communicating aneurysm surgery with clip, back surgery, cyst removed from top of his head. Allergies: NO KNOWN DRUG ALLERGIES. Home Medications: Baclofen 10 mg daily, gabapentin 600 mg twice daily, loratadine 10 mg daily, Gluco phage 1000 mg twice daily, Lopressor 25 mg twice daily, at bedtime, Flomax 0.4 mg twice da jihan, and tadalafil daily. Family History: There is breast cancer in mother. Social History: He smoked in the past. Drinks caffeinated beverages. Review of Systems: Otherwise, no other positives on a 10-point systems review aside from the episodic vertigo. Physical Examination: Vital Signs: Blood pressure 176/99, pulse 95, respiratory rate 16, temperature 99, oxygen saturation 96%. Weight 318 pounds, height 6 feet 4 inches, BMI 38.7. General: Mr. Montero is resting in bed. He is in no acute distress. HEENT: He is normocephalic, atraumatic. Sclerae anicteric. Oropharynx is pink and moist. Neck: Supple. Chest: Clear. Heart: Regular. Extremities: Show no clubbing, cyanosis, or edema. Skin: He has a well-healed scar on the right side of his head. Neurologic: Otherwise, cranial nerves intact 2 through 12. He does not have any obvious focal defic its. Motor examination: He does not have any focal weakness in the upper and lower extremities. Se nsation: He has mild stocking-glove loss to light touch, temperature. Reflexes depressed in upper e xtremities. Coordination intact. Slow gait with stance and stride. Laboratory Studies: Complete blood count with differential initially showed a white count of 13.7, n ow 10.1 one day later; neutrophils were 84.3 yesterday and now 73.7; hemoglobin 13.5; INR 1.18. Chem istries unremarkable. His glucose ranged from 122 to 132. Calcium after hydration 8.2, prior to hyd ration 8.6. His liver function studies unremarkable. LDL cholesterol 43, HDL 38, TSH 0.906, triglyc erides 64. Urinalysis shows a trace of blood, otherwise essentially unremarkable. Urine toxicology screen is negative and COVID-19 test is negative. Chest x-ray shows no acute cardiopulmonary process es. Assessment: Mr. Garcia is a 66-year-old patient with multiple syncopal episodes in the setting of a n aneurysm in anterior communicating artery that has been treated with a clip since 2007. He has a t otal of 3 syncopal episodes and this last one occurred in the setting of possible dehydration with ve rtigo. He does have comorbid hypertension, diabetes, dyslipidemia, benign prostatic hypertrophy. Plan: 1.Routine electroencephalogram on Friday. 2.Brain MRI without and with contrast on Friday. 3.Continue with hydration. Continue gabapentin. May consider increasing gabapentin to a treatment dosage for seizures along with treating his diabetic peripheral neuropathy. 4.He should be at least on 81 mg aspirin daily for stroke risk reduction and folic acid 1 mg daily. 5.The patient was actually seen by Dr. Carmona for the last 6 years, but he indicates he may want to s witch to my service and that is up to the patient. MARGARITA/POLINA Voice ID: [id number] Report ID: [id number]
[2021-08-05] MEDS: ACETAMINOPHEN 500 MG TAB PO PRN (00:19)
[2021-08-05] MEDS: METOPROLOL TAR 25 MG TAB PO SCH ×3 (00:48→17:18)
[2021-08-05] MEDS: VANCOMYCIN 2 GM in NA CHLORIDE 0.9% 500 ML IVPB SCH ×2 (00:51→14:20)
[2021-08-05] MEDS ORDERED: METFORMIN HCL 500 MG TAB PO SCH (01:00)
[2021-08-05 05:32] LABS: Absolute Lymphocytes (CBC) 1.7 K/uL (0.7-4.9); Hematocrit 38.6 % (39.6-49.0); Lymphocytes % 16.2 % (15.3-44.8); MPV 7.6 fL (7.6-11.3); RBC Red Blood Cell Count 4.11 M/uL (4.33-5.43)
[2021-08-05 05:59] LABS: Albumin 2.9 g/dL (3.4-5.0); Bilirubin Total 0.5 mg/dL (0.2-1.0); Protein, Total 6.8 g/dL (6.4-8.2)
--- NOTE | 2021-08-05 08:59 | RAD REPORT ---
EXAM DESCRIPTION: CTAbdomen Pelvis W Contrast - 08/05/2021 8:36 am CLINICAL HISTORY: scrotal cellulitis COMPARISON: CT ABD PELVIS W CONTRAST dated 03/19/2012; CT ABD PELVIS W CONTRAST dated 06/26/2007; Scr otum Testicles dated 08/04/2021 TECHNIQUE: CT of the abdomen and pelvis was performed. All CT scans are performed using dose optimization technique as appropriate and may include automated exposure control or mA/KV adjustment according to patient size. FINDINGS: Lower chest: No acute abnormality. Liver: Hepatic steatosis. Low-density liver lesions are likely benign. Biliary: No biliary ductal dilatation. Stomach: No significant focal abnormality. Duodenum: Mild stranding along the second portion the duodenum. Pancreas: No significant abnormality. Spleen: No significant abnormality. Adrenal: No suspicious lesions. Kidney/ureter: No hydronephrosis. No renal calculi. Too small to characterize and/or benign appearing renal lesions are noted. Retroperitoneum: No retroperitoneal adenopathy. Vascular: No aneurysm. Bowel: No significant focal abnormality. Peritoneum: No ascites or free air. Bladder: Grossly unremarkable. Reproductive: Skin thickening and subcutaneous edema involving the scrotum and penis. No soft tissue gas. Small fat containing left inguinal hernia. No abscess is seen. Bones: No acute fracture. L5-S1 fusion. Other: n/a IMPRESSION: Skin thickening and subcutaneous edema at the scrotum and penis likely reflecting known cellulitis. No abscess identified. No soft tissue gas. Mild stranding at the second portion the duodenum. Consider duodenitis or peptic ulcer disease. Endos copy could better evaluate.
[2021-08-05] MEDS: TADALAFIL 5 MG PO SCH (09:00)
[2021-08-05] MEDS: BACLOFEN 10 MG TAB PO SCH ×2 (09:32→20:25)
[2021-08-05] MEDS: TAMSULOSIN 0.4 MG SR CAP PO SCH (09:32)
[2021-08-05] MEDS: GABAPENTIN 400 MG CAP PO SCH ×2 (09:32→20:25)
[2021-08-05] MEDS: ENOXAPARIN 40 MG/0.4 ML SQ SCH (09:32)
[2021-08-05] MEDS: Levofloxacin500mg IV 500 MG/100 ML BAG IV SCH (13:16)
[2021-08-05] MEDS: TRAMADOL HCL 50 MG TAB PO PRN ×2 (13:24→21:14)
[2021-08-05] MEDS: METFORMIN HCL 500 MG TAB PO SCH (22:59)
--- NOTE | 2021-08-05 23:55 | P.PN ---
Subjective Date of Service: 08/04/21 Subjective: No new changes, No C/O voiced, Tolerating diet, Improving Review of Systems 10-point ROS is otherwise unremarkable Physical Examination - Vital Signs Temperature: 97.7 F Blood Pressure: 136/83 Pulse: 78 Respirations: 18 Pulse Ox (%): 94 - Physical Exam General: Alert, In no apparent distress, Oriented x3 HEENT: Atraumatic, PERRLA, EOMI Neck: Supple, JVD not distended Respiratory: Clear to auscultation bilaterally, Normal air movement Cardiovascular: Regular rate/rhythm, Normal S1 S2 Gastrointestinal: Normal bowel sounds, No tenderness Musculoskeletal: No tenderness Integumentary: No rashes Neurological: Normal speech, Normal tone, Normal affect Lymphatics: No axilla or inguinal lymphadenopathy - Studies Medications List Reviewed: Yes Assessment & Plan - Problems (Diagnosis) (1) Cellulitis of scrotum Current Visit: Yes Status: Acute (2) Syncope and collapse Current Visit: Yes Status: Acute (3) HTN (hypertension) Onset Date: 08/04/17 Current Visit: Yes Status: Chronic Qualifiers: Hypertension type: primary hypertension Qualified Code(s): I10 - Essential (primary) hypertension - Plan PLAN: 1. Continue with IV antibiotic 2. Continue with local wound care 3. Wound care consultation/urology consultation/cardiology consultation and neurology consultation 4. Gentle IV hydration 5. Monitor CBC 6. Strict blood sugar monitoring 7. Pain control 8. Echocardiogram and carotid Doppler 9. Stress test 10. MRI of the brain and EEG 11. GI and DVT prophylaxis Discharge Plan: Home Plan to discharge in: Greater than 2 days - Advance Directives Does patient have a Living Will: No Does patient have a Durable POA for Healthcare: No - Code Status/Comfort Care Code Status Assessed: Yes Code Status: Full Code Critical Care: No Time Spent Managing PTS Care (In Minutes): 35
--- NOTE | 2021-08-05 23:57 | P.PN ---
Date of Service: 08/05/21 Subjective Subjective: Patient is doing better. Cellulitis is improving. Neurologic and cardiac work- up pending Review of Systems 10-point ROS is otherwise unremarkable Physical Examination - Vital Signs Reviewed - Physical Exam General: Alert, In no apparent distress, Oriented x3 Respiratory: Clear to auscultation bilaterally, Normal air movement Cardiovascular: Regular rate/rhythm, Normal S1 S2 Gastrointestinal: Normal bowel sounds, No tenderness : Scrotal cellulitis Neurological: Normal speech, Normal tone, Normal affect Assessment & Plan - Problems (Diagnosis) (1) Cellulitis of scrotum Current Visit: Yes Status: Acute (2) Syncope and collapse Current Visit: Yes Status: Acute (3) HTN (hypertension) Onset Date: 08/04/17 Current Visit: Yes Status: Chronic Qualifiers: Hypertension type: primary hypertension Qualified Code(s): I10 - Essential (primary) hypertension - Plan Continue with cardiac work-up as mentioned: 1. Continue with IV antibiotic 2. Continue with local wound care 3. Wound care consultation/urology consultation/cardiology consultation and neurology consultation 4. Gentle IV hydration 5. Monitor CBC 6. Strict blood sugar monitoring 7. Pain control 8. Echocardiogram and carotid Doppler 9. Stress test 10. MRI of the brain and EEG 11. GI and DVT prophylaxis Discharge Plan: Home Plan to discharge in: Greater than 2 days - Advance Directives Does patient have a Living Will: No Does patient have a Durable POA for Healthcare: No - Code Status/Comfort Care Code Status Assessed: Yes Code Status: Full Code Critical Care: No Time Spent Managing PTS Care (In Minutes): 35
[2021-08-06] MEDS: ACETAMINOPHEN 500 MG TAB PO PRN (00:42)
[2021-08-06] MEDS: VANCOMYCIN 2 GM in NA CHLORIDE 0.9% 500 ML IVPB SCH ×2 (02:02→14:42)
[2021-08-06] MEDS: METOPROLOL TAR 25 MG TAB PO SCH ×2 (06:00→17:49)
[2021-08-06] MEDS ORDERED: REGADENOSON 0.4 MG/5 ML SYR IV ONE (07:18)
[2021-08-06] MEDS: METFORMIN HCL 500 MG TAB PO SCH ×2 (08:00→17:49)
[2021-08-06] MEDS: GABAPENTIN 400 MG CAP PO SCH ×2 (08:25→20:19)
[2021-08-06] MEDS: BACLOFEN 10 MG TAB PO SCH ×2 (08:25→20:20)
[2021-08-06] MEDS: TAMSULOSIN 0.4 MG SR CAP PO SCH (08:25)
[2021-08-06] MEDS: TADALAFIL 5 MG PO SCH (08:26)
[2021-08-06] MEDS: ENOXAPARIN 40 MG/0.4 ML SQ SCH (08:30)
[2021-08-06] MEDS: Levofloxacin 750mg IV 750 MG/150 ML BAG IV SCH (08:30)
[2021-08-06] MEDS ORDERED: AMLODIPINE 5 MG TAB PO ONE (09:48)
[2021-08-06] MEDS ORDERED: HYDRALAZINE HCL 20 MG/ML VIAL ONE (10:47)
[2021-08-06] MEDS ORDERED: HYDRALAZINE HCL 20 MG/ML VIAL IV ONE ×2 (10:55→11:04)
--- NOTE | 2021-08-06 11:51 | P.PN ---
Subjective Date of Service: 08/06/21 Primary Care Provider: Dr. Kennedy Chief Complaint: AMS, Syncope Subjective: No new changes (awaiting stress test and echo today) Physical Examination - Vital Signs Temperature: 97.4 F Blood Pressure: 161/73 Pulse: 77 Respirations: 16 Pulse Ox (%): 95 - Studies Medications List Reviewed: Yes Assessment And Plan Discharge Plan: Home - Code Status/Comfort Care Code Status Assessed: Yes Physician Review: Patient Assessed, Agree with Above Assessment and Plan Physician Review Additional Text: 08/06/21 11:48 - Physical Exam General: Alert, In no apparent distress, Oriented x3, large middle-age male, Respiratory: Clear to auscultation bilaterally, Normal air movement Cardiovascular: Regular rate/rhythm, Normal S1 S2 Gastrointestinal: Normal bowel sounds, No tenderness : Scrotal cellulitis Extremitiesno pedal edema, no calf tenderness Neurological: Normal speech, Normal tone, Normal affect Labsreviewed Stress testpending Carotid ultrasoundno significant stenosis Scrotal ultrasoundedema of the scrotal with mild cellulitis Assessment & Plan - Problems (Diagnosis) (1) Cellulitis of scrotum Current Visit: Yes Status: Acute (2) Syncope and collapse Current Visit: Yes Status: Acute (3) HTN (hypertension) Onset Date: 08/04/17 Current Visit: Yes Status: Chronic Qualifiers: Hypertension type: primary hypertension Qualified Code(s): I10 - Essential (primary) hypertension - Plan Scrotal cellulitis improving, continue diuretics and IV antibiotics Follow-up pending stress test today May need increase in diuretic dosage Carotid ultrasound shows no stenosis Cardiology work-up negative so far Follow-up pending echocardiogram Continue and follow wound care as well as cardiology consult Continue strict glycemic monitoring Follow-up planned MRI brain/EEG for syncope work-up although resolved now Possible hospital stay for 48 to 72 hours Continue GI and DVT prophylaxis
--- NOTE | 2021-08-06 12:37 | RAD REPORT ---
EXAM DESCRIPTION: NM - Rest Stress Cardiac Imaging - 08/06/2021 11:39 am CLINICAL HISTORY: Chest pain. COMPARISON: 2017 TECHNIQUE: The patient was administered 10.9 mCi of Tc 99m Sestamibi prior to resting SPECT imaging of the heart. The patient was then administered 32.1 mCi of Tc 99m Sestamibi following exercise or ph armacologic stress. Multiplanar SPECT images were reviewed. FINDINGS: There is uniformity of radiotracer uptake involving the entire left ventricular myocardiu m on rest and stress images. The left ventricular ejection fraction equals 65% IMPRESSION: Negative for a myocardial perfusion defect
[2021-08-06] MEDS: TRAMADOL HCL 50 MG TAB PO PRN ×2 (14:41→22:02)
--- NOTE | 2021-08-06 17:27 | RAD REPORT ---
EXAM DESCRIPTION: MRI - Brain W/Wo Cont - 08/06/2021 5:09 pm CLINICAL HISTORY: Syncope COMPARISON: head CT August 03, 2021 TECHNIQUE: Axial, sagittal, and coronal magnetic images of the brain were obtained. 20 cc MultiHance administered intravenously FINDINGS: Postsurgical changes of an aneurysm clipping. Mild signal within the left cerebrum likely gliosis. The ventricles are normal in caliber. Diffusion-weighted/ ADC mapping sequences do not demonstrate evidence of an acute infarction. No abnormal enhancement within the brain is seen. An extra-axial fluid collection is not noted. Fluid within the sinuses/mastoids is not seen IMPRESSION: No acute intracranial abnormality displayed
--- NOTE | 2021-08-06 17:32 | RAD REPORT ---
EXAM DESCRIPTION: MRI - MRA Neck W/Wo Cont - 08/06/2021 5:09 pm CLINICAL HISTORY: Syncope COMPARISON: None. TECHNIQUE: Magnetic resonance angiogram of the neck was performed. 19 cc MultiHance was administered intravenously. 3D MIPS reconstruction performed FINDINGS: Mild plaque within the common carotid, internal carotid and external carotid arteries bila terally. Mild stenosis proximal left vertebral artery. The vertebral arteries otherwise unremarkable No dissection seen IMPRESSION: No significant abnormality is displayed NASCET criteria used. Mild 0-49% stenosis Moderate 50-69% stenosis Severe 70-99% stenosis
--- NOTE | 2021-08-06 17:38 | RAD REPORT ---
EXAM DESCRIPTION: MRI - MRA Head Wo Cont - 08/06/2021 5:09 pm CLINICAL HISTORY: Syncope COMPARISON: None. TECHNIQUE: Magnetic resonance angiogram was performed. 3D MIPS reconstruction performed FINDINGS: Postsurgical changes of an repair. Artifact from the clip limits evaluation of the A1 segm ents bilaterally. The remainder of the anterior cerebral, middle cerebral, posterior cerebral, distal internal carotid and basilar arteries do not demonstrate a significant stenosis. An aneurysm is not displayed. IMPRESSION: No acute abnormality displayed
--- NOTE | 2021-08-06 20:11 | CON ---
Date of Consultation: 08/04/2021 Reason For Consultation: Syncope. History Of Present Illness: A 66-year-old male with history of brain aneurysm, hypertension, dyslipi demia presented to the emergency room with syncopal episode. The patient was standing, felt dizzy. Denies having chest pain. No palpitations or shortness of breath, and he fell face down, hit his [address] st wall and he was complaining of chest pain with movements and was very reproducible. Denies having any exertional chest pain. No shortness of breath. The patient has history of hypertension and on antihypertensive medications. Past Medical History: Hypertension, dyslipidemia, brain aneurysm. Medications: Refer to reconciliation sheet for detailed list. Allergies: NO KNOWN DRUG ALLERGIES. Past Surgical History: Brain aneurysm repair. Family History: No mature coronary artery disease. Social History: He does not smoke nor drink. Does not use drugs. Review of Systems: All systems reviewed and they were negative except what is mentioned in HPI. Physical Examination: Vital Signs: Reviewed. Head and Neck: Pupils are equal and reactive to light. Intact eye movements. No JVD. No cervical lymphadenopathy. Neck is supple. Thyroid is not enlarged. Lungs: Clear to auscultation bilaterally. No rhonchi, rales, or crackles. No accessory muscle use. Heart: Regular rate and rhythm. No extra sounds. Abdomen: Soft, nontender. Bowel sounds positive. No organomegaly. No masses or hernia. No rigidi ty or rebound. Extremities: No edema, clubbing, or cyanosis. Intact pulses. Skin: No rashes. Neuro: Alert, awake, oriented x3. No acute focal deficits appreciated. Lymph Nodes: No cervical or axillary lymphadenopathy. Investigations: White blood cell count 7.1, down from 13.7; hemoglobin is 13.5. BUN 15, creatinine 0.94. Electrolytes are normal. Assessment And Recommendations: Syncope, unclear etiology. No cardiac symptoms. I recommend to obt ain an echocardiogram, monitor on telemetry for any arrhythmia, and also obtain orthostatics. This c ould be due to a sudden drop in his blood pressure as the patient on antihypertensive medications. 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 SR/MODL Voice ID: [id number] Report ID: [id number]
[2021-08-06] MEDS ORDERED: HYDRALAZINE HCL 20 MG/ML VIAL IV PRN (20:48)
[2021-08-06] MEDS: MELATONIN 5 MG TABLET PO PRN (22:56)
[2021-08-07] MEDS: VANCOMYCIN 2 GM in NA CHLORIDE 0.9% 500 ML IVPB SCH ×2 (02:30→14:44)
[2021-08-07] MEDS: METOPROLOL TAR 25 MG TAB PO SCH ×2 (05:25→17:18)
--- NOTE | 2021-08-07 06:58 | TREADPHA ---
DX: SYNCOPE AND CHEST PAIN Date of Study: 08/06/2021 Ht: 6' 4 " Wt: 318 lb 0 oz Consulting Physician: RIMMA MEDICATIONS: LOVENOX, LEVAQUIN, LOPRESSOR HISTORY: 66 YEAR OLD MALE WITH COMPLAINTS OF SYNCOPE. HISTORY OF HYERTENSION, HIGH CHOLESTEROL, DIABETES MELLITUS, PROSTATE, NERVE PAIN, NON SMOKER, NON DRINKER. PHYSICIAL EXAMINATION: RESTING B.P.: 206/90 RESTING H.R.: 79 RESTING EKG: WITHIN NORMAL LIMITS PROTOCOL: LEXISCAN EXERCISE TIME: 3:30 B.P. AT PEAK STRESS: 197/102 IMPRESSION: LEXISCAN INJECTED FOLLOWED BY CARDIOLITE PER PROTOCOL. SEE NUCLEAR MEDICINE REPORT. NO SUPRAVENTRICULAR OR VENTRICULAR TACHYCARDIA. ONE PREMATURE VENTRICULAR COMPLEX NOTED DURING RECOVERY. HYDRALZINE 10 mg GIVEN IV ONCE PER DR. KONG. SECOND DOSE OF HYPRALAZINE 10 mg IV GIVEN. POST BLOOD PRESSURE 175/87. NO EKG CHANGES WITH LEXISCAN.
[2021-08-07] MEDS: TRAMADOL HCL 50 MG TAB PO PRN ×2 (08:21→23:05)
[2021-08-07] MEDS: TAMSULOSIN 0.4 MG SR CAP PO SCH (08:21)
[2021-08-07] MEDS: GABAPENTIN 400 MG CAP PO SCH ×2 (08:21→21:17)
[2021-08-07] MEDS: BACLOFEN 10 MG TAB PO SCH ×2 (08:21→21:17)
[2021-08-07] MEDS: Levofloxacin 750mg IV 750 MG/150 ML BAG IV SCH (08:22)
[2021-08-07] MEDS: TADALAFIL 5 MG PO SCH (08:22)
[2021-08-07] MEDS: ENOXAPARIN 40 MG/0.4 ML SQ SCH (08:22)
[2021-08-07] MEDS: METFORMIN HCL 500 MG TAB PO SCH ×2 (08:29→16:12)
--- NOTE | 2021-08-07 10:40 | ECHO ---
HEIGHT: 6 ft 4 in WEIGHT: 318 lb 0 oz DATE OF STUDY: 08/06/[address]: Cheri Spain 2-DIMENSIONAL: YES M.MODE: YES DOPPLER: YES COLOR FLOW: YES TDS: YES PORTABLE: NO DEFINITY: NO BUBBLE STUDY: NO DIAGNOSIS: SYNCOPE CARDIAC HISTORY: CATHERIZATION: NO SURGERY: NO PROSTHETIC VALVE: NO PACEMAKER: NO MEASUREMENTS (cm) DIASTOLIC (NORMALS) SYSTOLIC (NORMALS) IVSd 1.1 (0.6-1.2) LA Diam 3.6 (1.9-4.0) LVEF 87% LVIDd 5.2 (3.5-5.7) LVIDs 2.7 (2.0-3.5) %FS 58% LVPWd 1.1 (0.6-1.2) Ao Diam 3.1 (2.0-3.7) 2 DIMENSIONAL ASSESSMENT: RIGHT ATRIUM: NORMAL LEFT ATRIUM: NORMAL RIGHT VENTRICLE: NORMAL LEFT VENTRICLE: NORMAL TRICUSPID VALVE: NORMAL MITRAL VALVE: NORMAL PULMONIC VALVE: NORMAL AORTIC VALVE: NORMAL PERICARDIAL EFFUSION: NONE AORTIC ROOT: NORMAL LEFT VENTRICULAR WALL MOTION: NORMAL DOPPLER/COLOR FLOW: NORMAL COMMENTS: TECHNICALLY DIFFICULT STUDY. GROSSLY NORMAL LEFT VENTRICULAR SIZE AND FUNCTION. NO WALL MOTION ABNORMALITY. NO EFFUSION. TECHNOLOGIST: Jewell GRAHAM
[2021-08-07] MEDS: ACETAMINOPHEN 500 MG TAB PO PRN (12:05)
[2021-08-07] MEDS ORDERED: FUROSEMIDE 20 MG/ 2ML VIAL IV ONE (12:34)
--- NOTE | 2021-08-07 12:39 | P.PN ---
Subjective Date of Service: 08/07/21 Primary Care Provider: Dr. Kennedy Chief Complaint: AMS, Syncope Subjective: No new changes (Patient states that he has had much improvement of his scrotal edema/inflammation.) Physical Examination - Vital Signs Temperature: 97.5 F Blood Pressure: 159/84 Pulse: 73 Respirations: 20 Pulse Ox (%): 97 - Physical Exam General: Alert, In no apparent distress, Cooperative HEENT: Atraumatic, Normocephalic Respiratory: Clear to auscultation bilaterally, Normal air movement Cardiovascular: No edema, Regular rate/rhythm, Normal S1 S2 Gastrointestinal: Soft and benign, Non-distended External genitalia: Other (scrotal edema and erythema) - Studies Medications List Reviewed: Yes Assessment And Plan - Current Problems (Diagnosis) (1) Syncope Current Visit: Yes Status: Acute (2) Cellulitis of scrotum Current Visit: Yes Status: Acute (3) Syncope and collapse Current Visit: Yes Status: Acute (4) HTN (hypertension) Onset Date: 08/04/17 Current Visit: Yes Status: Chronic Qualifiers: Hypertension type: primary hypertension Qualified Code(s): I10 - Essential (primary) hypertension (5) Brain aneurysm Current Visit: No Status: Chronic (6) HLD (hyperlipidemia) Current Visit: No Status: Chronic Qualifiers: Hyperlipidemia type: mixed hyperlipidemia Qualified Code(s): E78.2 - Mixed hyperlipidemia Physician Review: Patient Assessed, Agree with Above Assessment and Plan Physician Review Additional Text: 08/07/21 12:36 Assessment Patient is a 66 year old male with obesity, brain aneurysm and HTN. He was admitted for a syncope work up, which was unremarkable with negative Brain MRI and TTE. He has been cleared by cardiology for discharge. Patient was also found to have an inflammation in the scrotal area concerning for cellulitis. As per patient, he hasn't had much improvement since his admission. PLAN: Will continue current antibiotics. I will give a 1x dose of IV lasix since scrotal US showed moderate edema Follow-up pending stress test today Patient can be discharged tomorrow
[2021-08-07] MEDS: MELATONIN 5 MG TABLET PO PRN (23:04)
[2021-08-08 00:02] VITALS: O2SAT 96
[2021-08-08] MEDS: VANCOMYCIN 2 GM in NA CHLORIDE 0.9% 500 ML IVPB SCH (01:49)
[2021-08-08] MEDS: METOPROLOL TAR 25 MG TAB PO SCH (06:13)
[2021-08-08] MEDS: TAMSULOSIN 0.4 MG SR CAP PO SCH (08:03)
[2021-08-08] MEDS: METFORMIN HCL 500 MG TAB PO SCH (08:03)
[2021-08-08] MEDS: Levofloxacin 750mg IV 750 MG/150 ML BAG IV SCH (08:03)
[2021-08-08] MEDS: GABAPENTIN 400 MG CAP PO SCH (08:03)
[2021-08-08] MEDS: BACLOFEN 10 MG TAB PO SCH (08:04)
[2021-08-08] MEDS: ENOXAPARIN 40 MG/0.4 ML SQ SCH (08:04)
[2021-08-08] MEDS: TADALAFIL 5 MG PO SCH (08:04)
[2021-08-08 08:29] LABS: Potassium 3.8 mmol/L (3.5-5.1)
[2021-08-08] MEDS ORDERED: FUROSEMIDE 20 MG/ 2ML VIAL IV ONE (09:10)
--- NOTE | 2021-08-08 09:16 | P.DS ---
Admission Date: 08/04/21 Discharge Date: 08/08/21 Primary Care Provider: Dr. Kennedy Disposition: ROUTINE DISCHARGE Discharge Condition: GOOD Reason for Admission: AMS, Syncope - Problems (1) Syncope Current Visit: Yes Status: Acute (2) Cellulitis of scrotum Current Visit: Yes Status: Acute (3) Syncope and collapse Current Visit: Yes Status: Acute (4) HTN (hypertension) Onset Date: 08/04/17 Current Visit: Yes Status: Chronic Qualifiers: Hypertension type: primary hypertension Qualified Code(s): I10 - Essential (primary) hypertension (5) Brain aneurysm Current Visit: No Status: Chronic (6) HLD (hyperlipidemia) Current Visit: No Status: Chronic Qualifiers: Hyperlipidemia type: mixed hyperlipidemia Qualified Code(s): E78.2 - Mixed hyperlipidemia Hospital Course: Patient is a 66 year old male with obesity, brain aneurysm and HTN. He was admitted after he presented with syncope. His work up was unremarkable including a negative Brain MRI and TTE. He has been cleared by cardiology for discharge. Patient was also found to have an inflammation in the scrotal area concerning for cellulitis. He has done well with antibiotics and diuresis. He can be discharged today. Vital Signs/Physical Exam: Temp Pulse Resp BP Pulse Ox 98.0 F 83 18 138/73 95 08/08/21 04:00 08/08/21 06:13 08/08/21 04:00 08/08/21 06:13 08/08/21 04:00 General: Alert, In no apparent distress, Cooperative HEENT: Atraumatic, Normocephalic Respiratory: Clear to auscultation bilaterally, Normal air movement Cardiovascular: Regular rate/rhythm, Normal S1 S2 Gastrointestinal: Soft and benign, Non-distended Musculoskeletal: No clubbing, No swelling, No contractures, No erythema, No tenderness Neurological: Normal speech, Normal affect Laboratory Data at Discharge: WBC 10.70 K/uL (4.3-10.9) 08/05/21 05:05 Hgb 13.1 g/dL (13.6-17.9) L 08/05/21 05:05 Hct 38.6 % (39.6-49.0) L 08/05/21 05:05 Plt Count 183 K/uL (152-406) 08/05/21 05:05 PT 13.6 SECONDS (9.5-12.5) H 08/03/21 17:00 INR 1.18 08/03/21 17:00 APTT 34.4 SECONDS (24.3-36.9) 08/03/21 17:00 Sodium 140 mmol/L (136-145) 08/08/21 07:54 Potassium 3.8 mmol/L (3.5-5.1) 08/08/21 07:54 BUN 11 mg/dL (7-18) 08/08/21 07:54 Creatinine 0.91 mg/dL (0.55-1.3) 08/08/21 07:54 Glucose 94 mg/dL (74-106) 08/08/21 07:54 Total Bilirubin 0.5 mg/dL (0.2-1.0) 08/05/21 05:05 AST 15 U/L (15-37) 08/05/21 05:05 ALT 26 U/L (12-78) 08/05/21 05:05 Alkaline Phosphatase 71 U/L (45-117) 08/05/21 05:05 Triglycerides 64 mg/dL (<150) 08/04/21 05:15 Cholesterol 94 mg/dL (<200) 08/04/21 05:15 HDL Cholesterol 38 mg/dL (40-60) L 08/04/21 05:15 Cholesterol/HDL Ratio 2.47 08/04/21 05:15 Home Medications: Baclofen [Lioresal*] 1 tab PO BID 10/07/20 Gabapentin [Neurontin*] 1 tab PO BID 10/07/20 Loratadine [Claritin*] 10 mg PO DAILY 10/07/20 Metformin HCl [Glucophage*] 1 tab PO BID 10/07/20 Metoprolol Tartrate [Lopressor*] 25 mg PO BID 6AM 6PM #60 tab 10/07/20 Tamsulosin HCl [Flomax] 1 cap PO DAILY 10/07/20 tadalafiL [Tadalafil] 1 tab PO DAILY 10/07/20 Montelukast [Singulair*] 1 tab PO DAILY 08/04/21 levoFLOXacin [Levaquin*] 750 mg PO DAILY #7 tab 08/08/21 New Medications: levoFLOXacin [Levaquin*] 750 mg PO DAILY #7 tab Followup: Sanjana Alford, DO [Primary Care Provider] -
[2021-08-08 10:25] VITALS: BP 156/84; TEMP 97.7
== END 2021-08-08 10:53 | disposition home or self-care (01) | DRG 312 ==
LOC: ER 17:05 → ERHOLD 19:42 → 2ND 20:27 → OBSVTOIN 08-04 18:18
PROVIDERS: ADMIT Hospitalist; ATTEND Internal Medicine
DX: R55 Syncope and collapse (principal); I10 Essential (primary) hypertension; E11.9 Type 2 diabetes mellitus without complications; E78.2 Mixed hyperlipidemia; N40.0 Benign prostatic hyperplasia without lower urinary tract symptoms; I67.1 Cerebral aneurysm, nonruptured; N49.2 Inflammatory disorders of scrotum; E86.0 Dehydration; Z87.891 Personal history of nicotine dependence; Z79.84 Long term (current) use of oral hypoglycemic drugs; Z79.899 Other long term (current) drug therapy; Z20.822 Contact with and (suspected) exposure to COVID-19
CPT/HCPCS: 36415; 51702; 70450; 70544; 70549; 70553; 71045; 74177; 76870; 78452; 80048; 80053; 80061; 80202; 80307; 80320; 81003; 84145; 84439; 84443; 85025; 85610; 85730; 87040; 87205; 93017; 93306; 93880; 95819; 96361; 96374; 96375; 99291; 99292; A9500; A9577; G0378; J0360; J1650; J1720; J1940; J2765; J2785; J3370; J7030; J7040; Q9967; U0003

== ENCOUNTER 2022-08-11 14:44 | Emergency (ER) | payer OTHER ==
--- OUTSIDE RECORDS SUMMARY | 2022-08-11 14:56 | XMS REPORT | Continuity of Care Document ---
:1955 Author Organization [facility] t Address [address] [place] [id number] [place] [id number] Care Team Providers Name Role Phone SANJANA DEJESUS Primary Care Physician Unavailable Vicky Leiva Attending Clinician Unavailable Sanjana Dejesus Attending Clinician Unavailable Manda Howell MD Attending Clinician [phone] MANDA HOWELL Attending Clinician Unavail able Perla Hearn MD Attending Clinician Malcolm Clancy Attending Clinician Austen Carmona Attending Clinician MUSA KEBEDE Attending Clinician Unavailable Musa Kebede MD Attending Clinician Doctor Unassigned, [place] View Attending Clinician Unavailable , Adc Surg Spec Procedure Attending Clinician Unavailable Nurse, Adc Surgery Gu Attending Clinician Unavailable , Adc Lab Attending Clinician Unavailable John Singer MD Attending Clinician Belén-Mbayo_A_AH Attending Clinician Unavailable MANDA HOWELL Admitting Clinician Unavail able Belén-Mbayo_A_AH Admitting Clinician Unavailable Payers Payer Name Policy Type Policy Number Effective Date Expiration Date S saurabh WELLCARE/WELLCA [id number] 2019 RE [place] 00:00:00 WELLCARE [place] [id number] 2021 PLUS CLASSIC NO 00:00:00 PREMIUM HMO [facility] C1 [id number] Common Spiri t - [facility] [id number] Common Spiri t - [facility] C1 [id number] Common Spiri t - [facility] WELLCARE OF [place] [id number] 2019 - [place] 00:00:00 (MEDICARE REPLACEMENT/ADV ANTAGE - HMO) Problems Condition Condition Condition Status Onset Resolution Last Treating Co mments Source Name Details Category Date Date Treatment Clinician Date Penis Penis Disease Active [facility] Lymphedema Lymphedema Disease Active [facility] Non-trauma Non-trauma Problem Active V illage tic tic 606 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 Subdural 00:00: Practi c hemorrhage Hemorrhage 00 e Seasonal Seasonal Problem Active Boo ge allergy Allergy 6-03 Family 00:00: Practic 00 e Generalize Generalize Problem Active V illage d headache d Headache 6-03 Fa jose 00:00: Practic 00 e Chronic Chronic Problem Active 2014-062022-04-27 Me moria headache headache 0-08 23:28:13 l disorder disorder 00:00: Piero tee (disorder) (disorder) 00 Active 03/16/2015 Problem 04/27/2022 [facility] Essential Essential Problem Active 2022-04-27 Memoria hypertensi hypertensi 4-10 23:28:13 l on on 00:00: Abad (disorder) (disorder) 00 Active 09/16/2014 Problem 04/27/2022 [facility] Syncope Syncope Problem Active 2022-04-27 Me moria and and 4-10 23:28:13 l collapse collapse 00:00: Piero tee (disorder) (disorder) 00 Active 09/16/2014 Problem 04/27/2022 [facility] Low back Low back Problem Commo n pain pain, Spirit unspecifie - [facility] d [facility] [id number] Brain Problem Common aneurysm [facility] [id number] Penile Problem Common swelling [facility] Morbid Morbid Problem Common obesity obesity Spirit due to - [facility]I excess [facility] [id number] Erectile Problem Comm on dysfunctio Spirit n, - [facility] unspecifie [facility] d erectile kes dysfunctio Medica l n type Center Obstructiv Obstructiv Problem C ommon e sleep e sleep Spirit apnea apnea - [facility] Obesity Obesity Problem Common [facility] [id number] Anxiety Problem Common [facility] Allergic Allergic Problem Commo n rhinitis rhinitis [facility] Hypertensi Hypertensi Problem C ommon on on [facility] [id number] Obesity Problem Commo n (BMI Spirit 30-39.9) - 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 - CHI loss St (SNHL) [facility] both ears [facility] [id number] Severe Problem Common obesity [facility] (BMI >= - CHI 40) [facility] [id number] Lumbar Problem Common degenerati Spirit ve disc - CHI disease [facility] [id number] COPD, mild Problem Co mmon Spirit - [facility] [id number] Right hip Problem Co mmon [address] pain [facility] [id number] Primary Problem Commo n osteoarthr Spirit itis of - CHI both hips [facility] [id number] Acute Problem Common right-side Spirit d low back - [facility]I pain with [facility] right-side [facility] Benign BPH Problem Common prostatic (benign Spirit hyperplasi prostatic - [facility] No known No known Disease Unive rs active active ity of problems problems [facility] Subarachno Subarachn Problem Active 2021-10-26 Memoria id oid 06:31:55 l hemorrhage hemorrhage He rmann (disorder) (disorder) Active Problem 10/26/2021 Data migrated from [facility] on 01/31/15. [facility] History of History Problem Active 2022-04-27 Memoria surgery of surgery 23:28:13 l for for Abad cerebral cerebral aneurysm aneurysm (situation (situation ) ) Active Problem 04/27/2022 [facility] Lumbar Lumbar Problem Active 2022-04-27 Taj hayden radiculopa radiculopa 23:28:13 l thy thy Abad (disorder) (disorder) Active Problem 04/27/2022 [facility] Allergies, Adverse Reactions, Alerts Allergy Allergy Status Severity Reaction(s) Onset Inactive Treating Comm ents Source Name Type Date Date Clinician NO KNOWN Drug Active Univers ALLERGIE Class ity of S [facility] No Known No Known Active Memori a Medicati Medicati l on on Abad Allergie Allergie s s NO KNOWN Allergy Active [facility] Center Social History Social Habit Start Date Stop Date Quantity Comments Source History SDOH [facility] Alcohol Frequency Medical Center History SDOH [facility] Alcohol Std Drinks Medica l Center History SDWA [facility] Alcohol Binge Medical Yael ter History of tobacco Smoker [facility] use Medical Center Alcohol intake 2022-07-12 2022-07-12 Current drinker of [facility] 00:[facility]00 00:00:00 alcohol (finding) Medical Center Exposure to 2022-07-01 2022-07-[address] [facility] SARS-CoV-2 (event) 00:00:00 [facility]:57[facility] [place] Tobacco use and 2022-06-27 2022-06-[address] [facility] exposure 00:00:00 00:00:00 Medical Center History SDOH 2022-06-27 2022-06-[address] [facility] Alcohol Comment 00:00:00 00:00:00 Medical C enter Cigarettes smoked 2021-02-28 2021-02-28 [facility] (pack per 00:00:00 00:00:00 day) - Reported Cigarette 2021-02-28 2021-02-28 [facility] pack-years 00:00:00 00:00:00 Sex Assigned At [address] 00:00:00 00:00:00 Medical Center Smoking Status Start Date Stop Date Source Unknown if ever smoked [facility] Former smoker 2022-06-27 00:00:00 2022-06-27 00:00:[address] [facility] Tobacco smoking status [facility] Medications Ordered Filled Start Stop Current Ordering Indication Dosage Frequency Signature Comments Components Source Medication Medication Date Date Medication? Clinician (SIG) Name Name metFORMIN Yes 500mg Take [address] (GLUCOPHAGE 2-07 mg by [facility] ) 500 MG 14:33: mouth Medical tablet 23 daily with Center breakfast. metoprolol Yes 25mg Q.5D Take [address] tartrate 2-07 by mouth 2 [facility] (LOPRESSOR) 14:33: (two) Medic al 25 MG 23 times Center tablet daily. loratadine Yes 10mg QD Take [address] (CLARITIN) 2-07 by mouth [facility] 10 mg 14:33: daily. Medical tablet 23 [place] baclofen Yes 10mg QD Take [address] (LIORESAL) 2-07 by mouth [facility] 10 MG 14:33: daily. Medical tablet 23 [place] gabapentin Yes 400mg Q.5D Take [address] (NEURONTIN) 2-07 mg by [facility] 400 MG 14:33: mouth 2 Medical capsule 23 (two) Center times daily. montelukast Yes 10mg QD Take [address] (SINGULAIR) 2-07 by mouth Luke s 10 mg 14:33: nightly. Medical tablet 23 [place] tadalafiL Yes 5mg Take [address] (CIALIS) 5 2-07 by mouth [facility] MG tablet 14:33: daily as Medi faith 23 needed for [place] Erectile Dysfunctio n. tamsulosin Yes .8mg QD Take 0.[address] (FLOMAX) 2-07 mg by [facility] 0.4 mg Cap 14:33: mouth Medica l 24 hr 23 daily. Center capsule Missing or Yes Unknown [facility] Non-Formula 2-07 antibiotic Wandy kes ry 14:33: prescribed Medical Medication [address] Solomon Lamb . metFORMIN Yes 500mg Take [address] (GLUCOPHAGE 2-07 mg by [facility] ) 500 MG 14:33: mouth Medical tablet 23 daily with Center breakfast. metoprolol Yes 25mg Q.5D Take [address] tartrate 2-07 by mouth 2 [facility] (LOPRESSOR) 14:33: (two) Medic al 25 MG 23 times Center tablet daily. loratadine 2022-0 Yes 10mg QD Take [address] (CLARITIN) 2-07 by mouth [facility] 10 mg 14:33: daily. Medical tablet 23 [place] baclofen 2022-0 Yes 10mg QD Take [address] (LIORESAL) 2-07 by mouth [facility]ukes 10 MG 14:33: daily. Medical tablet 23 [place] gabapentin 2022-0 Yes 400mg Q.5D Take [address] (NEURONTIN) 2-07 mg by [facility] 400 MG 14:33: mouth 2 Medical capsule 23 (two) Center times daily. montelukast 2022-0 Yes 10mg QD Take [address] (SINGULAIR) 2-07 by mouth Luke s 10 mg 14:33: nightly. Medical tablet 23 [place] tadalafiL 2022-0 Yes 5mg Take [address] (CIALIS) 5 2-07 by mouth [facility]ukes MG tablet 14:33: daily as Medi faith 23 needed for Center Erectile Dysfunctio n. tamsulosin 0 Yes .8mg QD Take 0.[address] (FLOMAX) 2-07 mg by [facility]ukes 0.4 mg Cap 14:33: mouth Medica l 24 hr 23 daily. Center capsule Missing or Yes Unknown [facility] Non-Formula 2-07 antibiotic Wandy kes ry 14:33: prescribed Medical Medication [address] Solomon Lamb . metFORMIN 2022-0 Yes 500mg Take [address] (GLUCOPHAGE 2-07 mg by [facility] ) 500 MG 14:33: mouth Medical tablet 23 daily with Center breakfast. metoprolol 2022-0 Yes 25mg Q.5D Take [address] tartrate 2-07 by mouth 2 [facility] (LOPRESSOR) 14:33: (two) Medic al 25 MG 23 times Center tablet daily. loratadine 2022-0 Yes 10mg QD Take [address] (CLARITIN) 2-07 by mouth [facility] 10 mg 14:33: daily. Medical tablet 23 [place] baclofen 2022-0 Yes 10mg QD Take [address] (LIORESAL) 2-07 by mouth [facility]ukes 10 MG 14:33: daily. Medical tablet 23 [place] gabapentin 2023-0 Yes 400mg Q.5D Take [address] (NEURONTIN) 2-07 mg by [facility]ukes 400 MG 14:33: mouth 2 Medical capsule 23 (two) Center times daily. montelukast Yes 10mg QD Take [address] (SINGULAIR) 2-07 by mouth Luke s 10 mg 14:33: nightly. Medical tablet 23 [place] tadalafiL Yes 5mg Take [address] (CIALIS) 5 2-07 by mouth [facility] MG tablet 14:33: daily as Medi faith 23 needed for Center Erectile Dysfunctio n. tamsulosin Yes .8mg QD Take 0.[address] (FLOMAX) 2-07 mg by [facility]ukes 0.4 mg Cap 14:33: mouth Medica l 24 hr 23 daily. Center capsule Missing or Yes Unknown [facility] Non-Formula 2-07 antibiotic Wandy kes ry 14:33: prescribed Medical Medication [address] Solomon Lamb . sulfamethox 2022- No 160mg{t Q.5D Take [address] azole-trime 2- 02-12 rimetho tablet Wandy kes thoprim 00:00: 23:59 prim} (160 mg of Me dical (BACTRIM 00 :00 trimethopr Cente r DS) 800-160 im total) mg per by mouth 2 tablet (two) times daily for 5 days. sulfamethox 0 2022- Yes 160mg{t Q.5D Take [address] azole-trime 2- rimetho tablet Wandy kes thoprim 00:00: 23:59 prim} (160 mg of Me dical (BACTRIM 00 :00 trimethopr Cente r DS) 800-160 im total) mg per by mouth 2 tablet (two) times daily for 5 days. sulfamethox 2022- No 160mg{t Q.5D Take [address] azole-trime 2- 02- rimetho tablet Wandy kes thoprim 00:00: 23:59 prim} (160 mg of Me dical (BACTRIM 00 :00 trimethopr Cente r DS) 800-160 im total) mg per by mouth 2 tablet (two) times daily for 5 days. metFORMIN 2023-0 Yes 500mg Take [address] (GLUCOPHAGE 2-02 mg by [facility]ukes ) 500 MG 15:44: mouth Medical tablet 07 daily with Center breakfast. metoprolol 2022-0 Yes 25mg Q.5D Take [address] tartrate 2-02 by mouth 2 [facility] (LOPRESSOR) 15:44: (two) Medic al 25 MG 07 times Center tablet daily. loratadine 2022-0 Yes 10mg QD Take [address] (CLARITIN) 2-02 by mouth [facility]ukes 10 mg 15:44: daily. Medical tablet 07 [place] baclofen 2022-0 Yes 10mg QD Take [address] (LIORESAL) 2-02 by mouth [facility]ukes 10 MG 15:44: daily. Medical tablet 07 [place] gabapentin 2022-0 Yes 400mg Q.5D Take [address] (NEURONTIN) 2-02 mg by [facility]ukes 400 MG 15:44: mouth 2 Medical capsule 07 (two) Center times daily. montelukast 2022-0 Yes 10mg QD Take [address] (SINGULAIR) 2-02 by mouth Luke s 10 mg 15:44: nightly. Medical tablet 07 [place] tadalafiL 2022-0 Yes 5mg Take [address] (CIALIS) 5 2-02 by mouth [facility]ukes MG tablet 15:44: daily as Medi faith 07 needed for Center Erectile Dysfunctio n. tamsulosin 2022-0 Yes .8mg QD Take 0.[address] (FLOMAX) 2-02 mg by [facility]ukes 0.4 mg Cap 15:44: mouth Medica l 24 hr 07 daily. [place] capsule Missing or Yes Unknown [facility] Non-Formula 2-02 antibiotic Wandy kes ry 15:44: prescribed Medical Medication [address] Solomon Lamb . montelukast 2022-0 Yes 10mg QD Take [address] (SINGULAIR) 1-19 by mouth Luke s 10 mg 12:21: nightly. Medical tablet 23 [place] tadalafiL 2022-0 Yes 5mg Take [address] (CIALIS) 5 1-19 by mouth [facility]ukes MG tablet 12:21: daily as Medi faith 23 needed for Center Erectile Dysfunctio n. tamsulosin 2022-0 Yes .8mg QD Take 0.[address] (FLOMAX) 1-19 mg by [facility]ukes 0.4 mg Cap 12:21: mouth Medica l 24 hr 23 daily. Center capsule metFORMIN 2022-0 Yes 500mg Take [address] (GLUCOPHAGE 1-19 mg by Lukes ) 500 MG 12:21: mouth Medical tablet 22 daily with Center breakfast. metoprolol 2022-0 Yes 25mg Q.5D Take [address] tartrate 1-19 by mouth 2 [facility] (LOPRESSOR) 12:21: (two) Medic al 25 MG 22 times Center tablet daily. loratadine 0 Yes 10mg QD Take [address] (CLARITIN) 1-19 by mouth [facility] 10 mg 12:21: daily. Medical tablet 22 Center baclofen 2022-0 Yes 10mg QD Take [address] (LIORESAL) 1-19 by mouth [facility] 10 MG 12:21: daily. Medical tablet 22 Center gabapentin 2022-0 Yes 400mg Q.5D Take [address] (NEURONTIN) 1-19 mg by [facility] 400 MG 12:21: mouth 2 Medical capsule 22 (two) Center times daily. baclofen 2021-06 Yes = 1 tab, Me moria mg oral 0-17 PO, BID, # l tablet 16:04: 180 tab, 1 Mary nn 00 Refill(s), Pharmacy: [id number], 187.96, cm, 10/23/21 9:15:00 CDT, Height, 146.818, kg, 10/23/21 9:15:00 CDT, Weight baclofen 2021-06 Yes = 1 tab, Me moria mg oral 0-17 PO, BID, # l tablet 16:04: 180 tab, 1 Mary nn 00 Refill(s), Pharmacy: [facility]ORE [id number], 187.96, cm, 10/23/21 9:15:00 CDT, Height, 146.818, kg, 10/23/21 9:15:00 CDT, Weight baclofen 2021-06 Yes = 1 tab, Me moria mg oral 0-17 PO, BID, # l tablet 16:04: 180 tab, 1 Mary nn 00 Refill(s), Pharmacy: [facility]ORE [id number], 187.96, cm, 10/23/21 9:15:00 CDT, Height, 146.818, kg, 10/23/21 9:15:00 CDT, Weight baclofen 10 2021-06 Yes = 1 tab, Me moria mg oral 0-17 PO, BID, # l tablet 16:04: 180 tab, 1 Mary nn 00 Refill(s), Pharmacy: [facility] STORE [id number], 187.96, cm, 10/23/21 9:15:00 CDT, Height, 146.818, kg, 10/23/21 9:15:00 CDT, Weight baclofen 2021-06 Yes = 1 tab, Me moria mg oral 0-17 PO, BID, # l tablet 16:04: 180 tab, 1 Mary nn 00 Refill(s), Pharmacy: [facility] STORE [id number], 187.96, cm, 10/23/21 9:15:00 CDT, Height, 146.818, kg, 10/23/21 9:15:00 CDT, Weight baclofen 2021-06 Yes = 1 tab, Me moria mg oral 0-17 PO, BID, # l tablet 16:04: 180 tab, 1 Mary nn 00 Refill(s), Pharmacy: [facility] STORE [id number], 187.96, cm, 10/23/21 9:15:00 CDT, Height, 146.818, kg, 10/23/21 9:15:00 CDT, Weight baclofen 2021-06 Yes = 1 tab, Me moria mg oral 0-17 PO, BID, # l tablet 16:04: 180 tab, 1 Mary nn 00 Refill(s), Pharmacy: [facility]ORE 03199, 187.96, cm, 10/23/21 9:15:00 CDT, Height, 146.818, kg, 10/23/21 9:15:00 CDT, Weight baclofen 2021-06 Yes = 1 tab, Me moria mg oral 0-17 PO, BID, # l tablet 16:04: 180 tab, 1 Mary nn 00 Refill(s), Pharmacy: [facility] STORE 56912, 187.96, cm, 10/23/21 9:15:00 CDT, Height, 146.818, kg, 10/23/21 9:15:00 CDT, Weight gabapentin 2021-06 Yes = 1 cap, Mem oria 400 mg oral 0-10 PO, BID, # l capsule 19:52: 180 Abad 00 unknown unit, 1 Refill(s), Pharmacy: [facility]ORE 60106, 187.96, cm, 10/23/21 9:15:00 CDT, Height, 146.818, kg, 10/23/21 9:15:00 CDT, Weight gabapentin 2021-06 Yes = 1 cap, Mem oria 400 mg oral 0-10 PO, BID, # l capsule 19:52: [address] [place] 00 unknown unit, 1 Refill(s), Pharmacy: [facility]ORE 81885, 187.96, cm, 10/23/21 9:15:00 CDT, Height, 146.818, kg, 10/23/21 9:15:00 CDT, Weight gabapentin 2021-06 Yes = 1 cap, Mem oria 400 mg oral 0-10 PO, BID, # l capsule 19:52: 180 Abad 00 unknown unit, 1 Refill(s), Pharmacy: [facility]ORE 19625, 187.96, cm, 10/23/21 9:15:00 CDT, Height, 146.818, kg, 10/23/21 9:15:00 CDT, Weight gabapentin 2021-06 Yes = 1 cap, Mem oria 400 mg oral 0-10 PO, BID, # l capsule 19:52: 180 Abad 00 unknown unit, 1 Refill(s), Pharmacy: [facility]ORE 80996, 187.96, cm, 10/23/21 9:15:00 CDT, Height, 146.818, kg, 10/23/21 9:15:00 CDT, Weight gabapentin 2021-06 Yes = 1 cap, Mem oria 400 mg oral 0-10 PO, BID, # l capsule 19:52: 180 Abad 00 unknown unit, 1 Refill(s), Pharmacy: [facility]ORE 13254, 187.96, cm, 10/23/21 9:15:00 CDT, Height, 146.818, kg, 10/23/21 9:15:00 CDT, Weight gabapentin 2021-06 Yes = 1 cap, Mem oria 400 mg oral 0-10 PO, BID, # l capsule 19:52: [address] [place] 00 unknown unit, 1 Refill(s), Pharmacy: [facility]ORE 51173, 187.96, cm, 10/23/21 9:15:00 CDT, Height, 146.818, kg, 10/23/21 9:15:00 CDT, Weight gabapentin 2021-06 Yes = 1 cap, Mem oria 400 mg oral 0-10 PO, BID, # l capsule 19:52: 180 Abad 00 unknown unit, 1 Refill(s), Pharmacy: [facility]ORE 35465, 187.96, cm, 10/23/21 9:15:00 CDT, Height, 146.818, kg, 10/23/21 9:15:00 CDT, Weight gabapentin 2021-06 Yes = 1 cap, Mem oria 400 mg oral 0-10 PO, BID, # l capsule 19:52: 180 Abad 00 unknown unit, 1 Refill(s), Pharmacy: [facility]ORE 21449, 187.96, cm, 10/23/21 9:15:00 CDT, Height, 146.818, kg, 10/23/21 9:15:00 CDT, Weight Furosemide Furosemide 2021-0 No 1{table Furosemide 20 MG 20 MG 8-02 t} 20 MG 00:00: 00 Furosemide Furosemide 2021-0 No 1{table Furosemide 20 MG 20 MG 8-02 t} 20 MG 00:00: 00 Furosemide Furosemide 2021-0 No 1{table Furosemide 20 MG 20 MG 8-02 t} 20 MG 00:00: 00 Furosemide Furosemide 2021-0 No 1{table Furosemide 20 MG 20 MG 8-02 t} 20 MG 00:00: 00 Furosemide Furosemide 2021-0 No 1{table Furosemide 20 MG 20 MG 8-02 t} 20 MG 00:00: 00 Furosemide Furosemide 2021-0 No 1{table Furosemide 20 MG 20 MG 8-02 t} 20 MG 00:00: 00 Potassium Potassium 2021-0 2021- No 1{capsu Potassium Chloride 20 Chloride 20 01-08 le} Chloride MEQ MEQ 00:00: 00:00 20 MEQ 00 :00 Potassium Potassium 2021-0 2- No 1{capsu Potassium Chloride 20 Chloride 20 01-08 le} Chloride MEQ MEQ 00:00: 00:00 20 MEQ 00 :00 gabapentin 2021-0 Yes gabapentin U nivers 300 mg 2-21 300 mg ity of capsule 09:56: capsule [address] metFORMIN 2021-0 Yes every 12 Univ ers 500 mg 2-21 (twelve) ity of tablet 09:56: hours. [address] baclofen 10 0 Yes 10mg Take 10 mg Univers mg tablet 2-21 by mouth 2 ity of 09:56: (two) [place] 44 times Medical daily. [place] gabapentin 2021-0 Yes gabapentin U nivers 300 mg 2-21 300 mg ity of capsule 09:56: capsule [address] metFORMIN 2021-0 Yes every 12 Univ ers 500 mg 2-21 (twelve) ity of tablet 09:56: hours. [address] baclofen 10 Yes 10mg Take 10 mg Univers mg tablet 2-21 by mouth 2 ity of 09:56: (two) [place] [id number] times Medical daily. [place] fluticasone Yes [facility] Univer s furoate-adrian 2-21 Ellipta ity o f anteroL 09:54: 100 mcg-25 [place] 100-25 10 mcg/dose Medical mcg/dose powder for Branc h DsDv inhalation propranoloL 0 Yes propranolo Univers 40 mg 2-21 l 40 mg ity of tablet 09:54: tablet [address] fluticasone 0 Yes Breo Univer s furoate-adrian 2-21 Ellipta ity o f anteroL 09:54: 100 mcg-25 [place] 100-25 10 mcg/dose Medical mcg/dose powder for Branc h DsDv inhalation propranoloL 2021-0 Yes propranolo Univers 40 mg 2-21 l 40 mg ity of tablet 09:54: tablet [address] pregabalin 0 Yes Lyrica 75 Un citlali (LYRICA) 75 2-21 mg capsule it y of mg capsule 09:54: [address] pregabalin 2021-0 Yes Lyrica 75 Un citlali (LYRICA) 75 2-21 mg capsule it y of mg capsule 09:54: [address] Naproxen Naproxen 0 2021- No Naproxen 500 MG 500 MG 06-28-04 500 MG 00:00: 00:00 00 :00 Naproxen Naproxen 2-0 2022- No Naproxen 500 MG 500 MG 20 - 500 MG 00:00: 00:00 00 :00 Naproxen Naproxen 2-0 2022- No Naproxen 500 MG 500 MG 20 - 500 MG 00:00: 00:00 00 :00 Naproxen Naproxen 2022-0 2022- No Naproxen 500 MG 500 MG 06-28- 500 MG 00:00: 00:00 00 :00 predniSONE predniSONE 2022-0 2022- No QD predniSONE 20 MG 20 MG 1-20 -25 20 MG 00:00: 00:00 00 :00 predniSONE predniSONE 2022-0 2022- No QD predniSONE 20 MG 20 MG 1-20 -25 20 MG 00:00: 00:00 00 :00 predniSONE predniSONE 2022-0 2022- No QD predniSONE 20 MG 20 MG 1-20 -25 20 MG 00:00: 00:00 00 :00 gabapentin 2020-06 Yes = 1 cap, Mem oria 400 MG Oral 0-08 PO, BID, # l Capsule 15:34: 180 cap, 1 Herm rocky 00 Refill(s), Pharmacy: [facility] #[id number], 193.04, cm, 03/16/21 10:08:00 CDT, Height, 141.364, kg, 03/16/21 10:08:00 CDT, Weight gabapentin 2020-06 Yes = 1 cap, Mem oria 400 MG Oral 0-08 PO, BID, # l Capsule 15:34: 180 cap, 1 Herm rocky 00 Refill(s), Pharmacy: [facility] #[id number], 193.04, cm, 03/16/21 10:08:00 CDT, Height, 141.364, kg, 03/16/21 10:08:00 CDT, Weight gabapentin 2020-06 Yes = 1 cap, Mem oria 400 MG Oral 0-08 PO, BID, # l Capsule 15:34: 180 cap, 1 Herm rocky 00 Refill(s), Pharmacy: [facility] #[id number], 193.04, cm, 03/16/21 10:08:00 CDT, Height, 141.364, kg, 03/16/21 10:08:00 CDT, Weight gabapentin 2020-06 Yes = 1 cap, Mem oria 400 MG Oral 0-08 PO, BID, # l Capsule 15:34: 180 cap, 1 Herm rocky 00 Refill(s), Pharmacy: [id number], 193.04, cm, 03/16/21 10:08:00 CDT, Height, 141.364, kg, 03/16/21 10:08:00 CDT, Weight gabapentin 2020-06 Yes = 1 cap, Mem oria 400 MG Oral 0-08 PO, BID, # l Capsule 15:34: 180 cap, 1 Herm rocky 00 Refill(s), Pharmacy: [facility] #[id number], 193.04, cm, 03/16/21 10:08:00 CDT, Height, 141.364, kg, 03/16/21 10:08:00 CDT, Weight gabapentin 2020-06 Yes = 1 cap, Mem oria 400 MG Oral 0-08 PO, BID, # l Capsule 15:34: 180 cap, 1 Herm rocky 00 Refill(s), Pharmacy: [id number], 193.04, cm, 03/16/21 10:08:00 CDT, Height, 141.364, kg, 03/16/21 10:08:00 CDT, Weight gabapentin 2020-06 Yes = 1 cap, Mem oria 400 MG Oral 0-08 PO, BID, # l Capsule 15:34: 180 cap, 1 Herm rocky 00 Refill(s), Pharmacy: [facility] #[id number], 193.04, cm, 03/16/21 10:08:00 CDT, Height, 141.364, kg, 03/16/21 10:08:00 CDT, Weight gabapentin 2020-06 Yes = 1 cap, Mem oria 400 MG Oral 0-08 PO, BID, # l Capsule 15:34: 180 cap, 1 Herm rocky 00 Refill(s), Pharmacy: [facility] #[id number], 193.04, cm, 03/16/21 10:08:00 CDT, Height, 141.364, kg, 03/16/21 10:08:00 CDT, Weight gabapentin 2020-06 Yes = 1 cap, Mem oria 400 MG Oral 0-08 PO, BID, # l Capsule 15:34: 180 cap, 1 Herm rocky 00 Refill(s), Pharmacy: [facility] #[id number], 193.04, cm, 03/16/21 10:08:00 CDT, Height, 141.364, kg, 03/16/21 10:08:00 CDT, Weight gabapentin 2020-1 Yes = 1 cap, Mem oria 400 MG Oral 0-08 PO, BID, # l Capsule 15:34: 180 cap, 1 Herm rocky 00 Refill(s), Pharmacy: [facility] #[id number], 193.04, cm, 03/16/21 10:08:00 CDT, Height, 141.364, kg, 03/16/21 10:08:00 CDT, Weight metFORMIN 2020-0 Yes Q12H every 12 UT (Glucophage 02-28 (twelve) Heal ) 500 MG 14:01: hours. tablet 57 metFORMIN 2020-0 Yes Q12H every 12 UT (Glucophage 02-28 (twelve) Heal ) 500 MG 14:01: hours. tablet 57 gabapentin 2020-0 Yes gabapentin U nivers 400 mg 9-13 400 mg ity of capsule 00:00: capsule [address] gabapentin 202-0 Yes gabapentin U nivers 400 mg 9-13 400 mg ity of capsule 00:00: capsule [address] gabapentin 2020-0 Yes 400mg Q.5D Take 400 UT (Neurontin) 9-13 mg by Health 400 MG 00:00: mouth 2 capsule 00 (two) times a day. gabapentin 2020-0 Yes 400mg Q.5D Take 400 UT (Neurontin) 9-13 mg by [facility] 400 MG 00:00: mouth 2 capsule 00 (two) times a day. metoprolol 2020-0 Yes 1 TABLET Uni vers tartrate 25 9-08 BY MOUTH ity of mg tablet 00:00: WITH FOOD Pramod as 00 TWICE [facility] metoprolol 202-0 Yes 1 TABLET Uni vers tartrate 25 9-08 BY MOUTH ity of mg tablet 00:00: WITH FOOD Pramod as 00 TWICE [facility] DAY [facility] metoprolol 2020-0 Yes 1 TABLET UT tartrate -08 BY MOUTH Health (Lopressor) 00:00: WITH FOOD 25 MG 00 TWICE A tablet DAY metoprolol 2020-0 Yes 1 TABLET UT tartrate 9-08 BY MOUTH [facility] (Lopressor) 00:00: WITH FOOD 25 MG 00 TWICE A tablet DAY montelukast 2020-0 Yes 10mg QD Take 10 mg UT (Singulair) 8-16 by mouth 1 He alth 10 MG 00:00: (one) time tablet 00 each day. montelukast 1-0 Yes 10mg QD Take 10 mg UT (Singulair) 8-16 by mouth 1 He alth 10 MG 00:00: (one) time tablet 00 each day. loratadine 2020-0 Yes 10mg Take 10 mg U nivers 10 mg 7-22 by mouth. ity of tablet 00:00: [address] loratadine 2020-0 Yes 10mg Take 10 mg U nivers 10 mg 7-22 by mouth. ity of tablet 00:00: [address] loratadine 2020-0 Yes 10mg QD Take 10 mg U T (Claritin) 7-22 by mouth 1 [facility] 10 MG 00:00: (one) time tablet 00 each day. loratadine 2020-0 Yes 10mg QD Take 10 mg U T (Claritin) 7-22 by mouth 1 [facility] 10 MG 00:00: (one) time tablet 00 each day. tamsulosin Yes tamsulosin U nivers 0.4 mg 24 3-10 0.4 mg ity of hr capsule 00:[place] [address] [place] [address] tamsulosin Yes tamsulosin U nivers 0.4 mg 24 3-10 0.4 mg ity of hr capsule 00:00: [place] [address] [place] [address] tamsulosin 0 Yes tamsulosin U T (Flomax) 3-10 0.4 mg Health 0.4 MG 24 00:00: capsule hr capsule 00 tamsulosin 2020-0 Yes tamsulosin U T (Flomax) 3-10 0.4 mg Health 0.4 MG 24 00:00: capsule hr capsule 00 tadalafil 2020-0 2021- No 1 (one) UT (Cialis) 5 3-10 03-06 time each [facility]a [facility] MG tablet 00:00: 05:59 day at the 00 :00 same time. tadalafil 2020-0 2021- No 1 (one) UT (Cialis) 5 3-10 03- time each Hea l[facility] MG tablet 00:00: 05:59 day at the 00 :00 same time. Tadalafil 5 Tadalafil 5 2020-0 2- No 1{table QD Tadalafil MG MG -03 11-05 t_as_ne 5 MG 00:00: 00:00 eded} 00 :00 Tamsulosin Tamsulosin 2020-0 2- No 1{capsu QD Tamsulosin HCl 0.4 MG HCl 0.4 MG 08-16 le} HCl 0.4 MG 00:00: 00:00 00 :00 Tadalafil 5 Tadalafil 5 2020-0 2- No 1{table QD Tadalafil MG MG 08-16- t_as_ne 5 MG 00:00: 00:00 eded} 00 :00 Tamsulosin Tamsulosin 2020-0 2- No 1{capsu QD Tamsulosin HCl 0.4 MG HCl 0.4 MG 08-16 le} HCl 0.4 MG 00:00: 00:00 00 :00 Tadalafil 5 Tadalafil 5 2020-0 2022- No 1{table QD Tadalafil MG MG -03 11- t_as_ne 5 MG 00:00: 00:00 eded} 00 :00 Tamsulosin Tamsulosin 2020-0 2- No 1{capsu QD Tamsulosin HCl 0.4 MG HCl 0.4 MG 08-16 le} HCl 0.4 MG 00:00: 00:00 00 :00 diazePAM 5 diazePAM 5 2020-0 No 1{table BID diazePAM 5 MG MG 3-05 t_as_ne MG 00:00: eded} 00 diazePAM 5 diazePAM 5 2020-0 No 1{table BID diazePAM 5 MG MG 3-05 t_as_ne MG 00:00: eded} 00 diazePAM 5 diazePAM 5 2020-0 No 1{table BID diazePAM 5 MG MG 3-05 t_as_ne MG 00:00: eded} 00 diazePAM 5 diazePAM 5 2020-0 No 1{table BID diazePAM 5 MG MG 3-05 t_as_ne MG 00:00: eded} 00 diazePAM 5 diazePAM 5 2020-0 No 1{table BID diazePAM 5 MG MG 3-05 t_as_ne MG 00:00: eded} 00 diazePAM 5 diazePAM 5 2020-0 No 1{table BID diazePAM 5 MG MG 3-05 t_as_ne MG 00:00: eded} 00 diazePAM 5 diazePAM 5 2020-0 No 1{table BID diazePAM 5 MG MG 3-05 t_as_ne MG 00:00: eded} 00 diazePAM 5 diazePAM 5 2020-0 No 1{table BID diazePAM 5 MG MG 3-05 t_as_ne MG 00:00: eded} 00 diazePAM 5 diazePAM 5 2020-0 No 1{table BID diazePAM 5 MG MG 3-05 t_as_ne MG 00:00: eded} 00 diazePAM 5 diazePAM 5 2020-0 No 1{table BID diazePAM 5 MG MG 3-05 t_as_ne MG 00:00: eded} 00 diazePAM 5 diazePAM 5 2020-0 No 1{table BID diazePAM 5 MG MG 3-05 t_as_ne MG 00:00: eded} 00 diazePAM 5 diazePAM 5 2020-0 No 1{table BID diazePAM 5 MG MG 3-05 t_as_ne MG 00:00: eded} 00 diazePAM 5 diazePAM 5 2020-0 No 1{table BID diazePAM 5 MG MG 3-05 t_as_ne MG 00:00: eded} 00 diazePAM 5 diazePAM 5 2020-0 No 1{table BID diazePAM 5 MG MG 3-05 t_as_ne MG 00:00: eded} 00 diazePAM 5 diazePAM 5 2020-0 No 1{table BID diazePAM 5 MG MG 3-05 t_as_ne MG 00:00: eded} 00 diazePAM 5 diazePAM 5 2020-0 No 1{table BID diazePAM 5 MG MG 3-05 t_as_ne MG 00:00: eded} 00 diazePAM 5 diazePAM 5 2020-0 No 1{table BID diazePAM 5 MG MG 3-05 t_as_ne MG 00:00: eded} 00 diazePAM 5 diazePAM 5 2020-0 No 1{table BID diazePAM 5 MG MG 3-05 t_as_ne MG 00:00: eded} 00 diazePAM 5 diazePAM 5 2020-0 No 1{table BID diazePAM 5 MG MG 3-05 t_as_ne MG 00:00: eded} 00 diazePAM 5 diazePAM 5 No 1{table BID diazePAM 5 MG MG 3-05 t_as_ne MG 00:00: eded} 00 diazePAM 5 diazePAM 5 No 1{table BID diazePAM 5 MG MG 3-05 t_as_ne MG 00:00: eded} 00 diazePAM 5 diazePAM 5 No 1{table BID diazePAM 5 MG MG 3-05 t_as_ne MG 00:00: eded} diazePAM 5 diazePAM 5 No 1{table BID diazePAM 5 MG MG 3-05 t_as_ne MG 00:00: eded} baclofen 10 2019-06 Yes 10 mg = 1 M emoria mg oral 2-02 tab, PO, l tablet 15:32: BID, # 60 Piero n 00 tab, 3 Refill(s), Pharmacy: [facility] #[id number], 185.42, cm, 05/10/20 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, Height, 142.273, kg, 05/10/20 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, Weight baclofen 10 2019-06 Yes 10 mg = 1 M emoria mg oral 2-02 tab, PO, l tablet 15:32: BID, # 60 Piero n 00 tab, 3 Refill(s), Pharmacy: [facility] #[id number], 185.42, cm, 05/10/20 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, Height, 142.273, kg, 05/10/20 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, Weight baclofen 10 2019-06 Yes 10 mg = 1 M emoria mg oral 2-02 tab, PO, l tablet 15:32: BID, # 60 Piero n 00 tab, 3 Refill(s), Pharmacy: [facility] #[id number], 185.42, cm, 05/10/20 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, Height, 142.273, kg, 05/10/20 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, Weight baclofen 10 2019-06 Yes 10 mg = 1 M emoria mg oral 2-02 tab, PO, l tablet 15:32: BID, # 60 Piero n 00 tab, 3 Refill(s), Pharmacy: [facility] #[id number], 185.42, cm, 05/10/20 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, Height, 142.273, kg, 05/10/20 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, Weight baclofen 10 2019-06 Yes 10 mg = 1 M emoria mg oral 2-02 tab, PO, l tablet 15:32: BID, # 60 Piero n 00 tab, 3 Refill(s), Pharmacy: [facility] #[id number], 185.42, cm, 05/10/20 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, Height, 142.273, kg, 05/10/20 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, Weight baclofen 10 2019-06 Yes 10 mg = 1 M emoria mg oral 2-02 tab, PO, l tablet 15:32: BID, # 60 Piero n 00 tab, 3 Refill(s), Pharmacy: [facility] #[id number], 185.42, cm, 05/10/20 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, Height, 142.273, kg, 05/10/20 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, Weight baclofen 10 2019-06 Yes 10 mg = 1 M emoria mg oral 2-02 tab, PO, l tablet 15:32: BID, # 60 Piero n 00 tab, 3 Refill(s), Pharmacy: [id number], 185.42, cm, 05/10/20 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, Height, 142.273, kg, 05/10/20 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, Weight baclofen 10 2019-06 Yes 10 mg = 1 M emoria mg oral 2-02 tab, PO, l tablet 15:32: BID, # 60 Piero n 00 tab, 3 Refill(s), Pharmacy: [facility] #[id number], 185.42, cm, 05/10/20 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, Height, 142.273, kg, 05/10/20 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, 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 baclofen 10 2019-06 Yes 10 mg = 1 M emoria mg oral 2-02 tab, PO, l tablet 15:32: BID, # 60 Piero n 00 tab, 3 Refill(s), Pharmacy: [facility] #[id number], 185.42, cm, 05/10/20 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, Height, 142.273, kg, 05/10/20 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, Weight baclofen 10 2019-06 Yes 10 mg = 1 M emoria mg oral 2-02 tab, PO, l tablet 15:32: BID, # 60 Piero n 00 tab, 3 Refill(s), Pharmacy: [facility] #[id number], 185.42, cm, 05/10/20 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, Height, 142.273, kg, 05/10/20 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, Weight cyclobenzap 2019-06 No 0 Memori a rine 10 mg 2-02 Refill(s) l oral tablet 15:28: Piero n 00 cyclobenzap 2019-06 No 0 Memori a rine 10 mg 2-02 Refill(s) l oral tablet 15:28: Piero n 00 cyclobenzap 2019-06 No 0 Memori a rine 10 mg 2-02 Refill(s) l oral tablet 15:28: Piero n 00 cyclobenzap 2019-06 No 0 Memori a rine 10 mg 2-02 Refill(s) l oral tablet 15:28: Piero n 00 cyclobenzap 2019-06 No 0 Memori a rine 10 mg 2-02 Refill(s) l oral tablet 15:28: Piero n 00 cyclobenzap 2019-06 No 0 Memori a rine 10 mg 2-02 Refill(s) l oral tablet 15:28: Piero n 00 cyclobenzap 2019-06 No 0 Memori a rine 10 mg 2-02 Refill(s) l oral tablet 15:28: Piero n 00 cyclobenzap 2019-06 No 0 Memori a rine 10 mg 2-02 Refill(s) l oral tablet 15:28: Piero n 00 cyclobenzap 2019-06 No 0 Memori a rine 10 mg 2-02 Refill(s) l oral tablet 15:28: Piero n 00 cyclobenzap 2019-06 No 0 Memori a rine 10 mg 2-02 Refill(s) l oral tablet 15:28: Piero n 00 gabapentin 2019- Yes 400 mg = 1 M emoria 400 MG Oral 828 cap, PO, l Capsule 14:31: BID, # 60 Mary nn 00 cap, 4 Refill(s), Pharmacy: [facility] #[id number], 187.96, cm, 02/04/20 9:16:00 CDT, Height, 140.909, kg, 02/04/20 9:16:00 CDT, Weight gabapentin 2020-0 Yes 400 mg = 1 M emoria 400 MG Oral 8-28 cap, PO, l Capsule 14:31: BID, # 60 Mary nn 00 cap, 4 Refill(s), Pharmacy: [facility] #[id number], 187.96, cm, 02/04/20 9:16:00 CDT, Height, 140.909, kg, 02/04/20 9:16:00 CDT, Weight gabapentin 2020-0 Yes 400 mg = 1 M emoria 400 MG Oral 8-28 cap, PO, l Capsule 14:31: BID, # 60 Mary nn 00 cap, 4 Refill(s), Pharmacy: [facility] #[id number], 187.96, cm, 02/04/20 9:16:00 CDT, Height, 140.909, kg, 02/04/20 9:16:00 CDT, Weight gabapentin 2020-0 Yes 400 mg = 1 M emoria 400 MG Oral 8-28 cap, PO, l Capsule 14:31: BID, # 60 Mary nn 00 cap, 4 Refill(s), Pharmacy: [facility] #[id number], 187.96, cm, 02/04/20 9:16:00 CDT, Height, 140.909, kg, 02/04/20 9:16:00 CDT, Weight gabapentin 2020-0 Yes 400 mg = 1 M emoria 400 MG Oral 8-28 cap, PO, l Capsule 14:31: BID, # 60 Mary nn 00 cap, 4 Refill(s), Pharmacy: [facility] #[id number], 187.96, cm, 02/04/20 9:16:00 CDT, Height, 140.909, kg, 02/04/20 9:16:00 CDT, Weight gabapentin 2020-0 Yes 400 mg = 1 M emoria 400 MG Oral 8-28 cap, PO, l Capsule 14:31: BID, # 60 Mary nn 00 cap, 4 Refill(s), Pharmacy: [facility] #[id number], 187.96, cm, 02/04/20 9:16:00 CDT, Height, 140.909, kg, 02/04/20 9:16:00 CDT, Weight gabapentin 2020-0 Yes 400 mg = 1 M emoria 400 MG Oral 8-28 cap, PO, l Capsule 14:31: BID, # 60 Mary nn 00 cap, 4 Refill(s), Pharmacy: [id number], 187.96, cm, 02/04/20 9:16:00 CDT, Height, 140.909, kg, 02/04/20 9:16:00 CDT, Weight gabapentin 2020-0 Yes 400 mg = 1 M emoria 400 MG Oral 8-28 cap, PO, l Capsule 14:31: BID, # 60 Mary nn 00 cap, 4 Refill(s), Pharmacy: [facility] #[id number], 187.96, cm, 02/04/20 9:16:00 CDT, Height, 140.909, kg, 02/04/20 9:16:00 CDT, Weight gabapentin 2020-0 Yes 400 mg = 1 M emoria 400 MG Oral 8-28 cap, PO, l Capsule 14:31: BID, # 60 Mary nn 00 cap, 4 Refill(s), Pharmacy: [facility] #[id number], 187.96, cm, 02/04/20 9:16:00 CDT, Height, 140.909, kg, 02/04/20 9:16:00 CDT, Weight gabapentin 2020-0 Yes 400 mg = 1 M emoria 400 MG Oral 8-28 cap, PO, l Capsule 14:31: BID, # 60 Mary nn 00 cap, 4 Refill(s), [facility]: [id number], 187.96, cm, 02/04/20 9:16:00 CDT, Height, 140.909, kg, 02/04/20 9:16:00 CDT, Weight gabapentin 2020-0 Yes 400 mg = 1 M emoria 400 MG Oral 2-28 cap, PO, l Capsule 15:12: BID, # 60 Mary nn 00 cap, 4 Refill(s), Pharmacy: [facility] #[id number] gabapentin 2020-0 Yes 400 mg = 1 M emoria 400 MG Oral 2-28 cap, PO, l Capsule 15:12: BID, # 60 Mary nn 00 cap, 4 Refill(s), Pharmacy: [facility] #[id number] gabapentin 2020-0 Yes 400 mg = 1 M emoria 400 MG Oral 2-28 cap, PO, l Capsule 15:12: BID, # 60 Mary nn 00 cap, 4 Refill(s), Pharmacy: [facility] #[id number] gabapentin 2020-0 Yes 400 mg = 1 M emoria 400 MG Oral 2-28 cap, PO, l Capsule 15:12: BID, # 60 Mary nn 00 cap, 4 Refill(s), Pharmacy: [facility] #[id number] gabapentin 2020-0 Yes 400 mg = 1 M emoria 400 MG Oral 2-28 cap, PO, l Capsule 15:12: BID, # 60 Mary nn 00 cap, 4 Refill(s), Pharmacy: [facility] #[id number] gabapentin 2020-0 Yes 400 mg = 1 M emoria 400 MG Oral 2-28 cap, PO, l Capsule 15:12: BID, # 60 Mary nn 00 cap, 4 Refill(s), Pharmacy: [facility] #[id number] gabapentin 2020-0 Yes 400 mg = 1 M emoria 400 MG Oral 2-28 cap, PO, l Capsule 15:12: BID, # 60 Mary nn 00 cap, 4 Refill(s), Pharmacy: [id number] gabapentin 2020-0 Yes 400 mg = 1 M emoria 400 MG Oral 2-28 cap, PO, l Capsule 15:12: BID, # 60 Mary nn 00 cap, 4 Refill(s), Pharmacy: [facility] #[id number] gabapentin 2020-0 Yes 400 mg = 1 M emoria 400 MG Oral 2-28 cap, PO, l Capsule 15:12: BID, # 60 Mary nn 00 cap, 4 Refill(s), Pharmacy: [facility] #[id number] gabapentin 2020-0 Yes 400 mg = 1 M emoria 400 MG Oral 2-28 cap, PO, l Capsule 15:12: BID, # 60 Mary nn 00 cap, 4 Refill(s), Pharmacy: [facility] #[id number] Neomycin-Po Neomycin-Po 2020-0 Yes Na Dejesus 4 drops Common lymyxin-HC lymyxin-HC 1-07 into Spi rit 00:00: affected - [facility] [address] [facility] Neomycin-Po Neomycin-Po 2020-0 No 4{drops TID Neomycin-P lymyxin-HC lymyxin-HC 1-07 _into_a olymyxin-H 3.5-77769-8 3.5-53564-0 00:00: ffected C 00 _ear} 3.5-09505- 1 Neomycin-Po Neomycin-Po 2020-0 No 4{drops TID Neomycin-P lymyxin-HC lymyxin-HC 1-07 _into_a olymyxin-H 3.5-97459-6 3.5-24240-1 00:00: ffected C 00 _ear} 3.5-70943- 1 Neomycin-Po Neomycin-Po 2020-0 No 4{drops TID Neomycin-P lymyxin-HC lymyxin-HC 1-07 _into_a olymyxin-H 3.5-44366-3 3.5-31248-7 00:00: ffected C 00 _ear} 3.5-64266- 1 Neomycin-Po Neomycin-Po 2020-0 No 4{drops TID Neomycin-P lymyxin-HC lymyxin-HC 1-07 _into_a olymyxin-H 3.5-31557-1 3.5-38089-7 00:00: ffected C 00 _ear} 3.5-77298- 1 Neomycin-Po Neomycin-Po 2020-0 No 4{drops TID Neomycin-P lymyxin-HC lymyxin-HC 1-07 _into_a olymyxin-H 3.5-18101-9 3.5-75642-9 00:00: ffected C 00 _ear} 3.5-18500- 1 Neomycin-Po Neomycin-Po 2020-0 No 4{drops TID Neomycin-P lymyxin-HC lymyxin-HC 1-07 _into_a olymyxin-H 3.5-28889-8 3.5-91122-8 00:00: ffected C 00 _ear} 3.5-94170- 1 Neomycin-Po Neomycin-Po 2020-0 No 4{drops TID Neomycin-P lymyxin-HC lymyxin-HC 1-07 _into_a olymyxin-H 3.5-90677-7 3.5-20999-8 00:00: ffected C 00 _ear} 3.5-99557- 1 gabapentin 2019-1 No 300 mg = 1 M emoria 300 MG Oral 2-17 cap, PO, l Capsule 22:32: BID, # 60 Mary nn 00 cap, 3 Refill(s), [id number] gabapentin 2018-06 No 300 mg = 1 M emoria 300 MG Oral 2-17 cap, PO, l Capsule 22:32: BID, # 60 Mary nn 00 cap, 3 Refill(s), [id number] gabapentin 2018-06 No 300 mg = 1 M emoria 300 MG Oral 2-17 cap, PO, l Capsule 22:32: BID, # 60 Mary nn 00 cap, 3 Refill(s), [id number] gabapentin 2018-06 No 300 mg = 1 M emoria 300 MG Oral 2-17 cap, PO, l Capsule 22:32: BID, # 60 Mary nn 00 cap, 3 Refill(s), [id number] gabapentin 2018-06 No 300 mg = 1 M emoria 300 MG Oral 2-17 cap, PO, l Capsule 22:32: BID, # 60 Mary nn 00 cap, 3 Refill(s), [id number] gabapentin 2018-06 No 300 mg = 1 M emoria 300 MG Oral 2-17 cap, PO, l Capsule 22:32: BID, # 60 Mary nn 00 cap, 3 Refill(s), [id number] gabapentin 2018-06 No 300 mg = 1 M emoria 300 MG Oral 2-17 cap, PO, l Capsule 22:32: BID, # 60 Mary nn 00 cap, 3 Refill(s), [id number] gabapentin 2018-06 No 300 mg = 1 M emoria 300 MG Oral 2-17 cap, PO, l Capsule 22:32: BID, # 60 Mary nn 00 cap, 3 Refill(s), Pharmacy: [facility] #[id number] gabapentin 2018-06 No 300 mg = 1 M emoria 300 MG Oral 2-17 cap, PO, l Capsule 22:32: BID, # 60 Mary nn 00 cap, 3 Refill(s), Pharmacy: [facility] #[id number] gabapentin 2018- No 300 mg = 1 M emoria 300 MG Oral 2-17 cap, PO, l Capsule 22:32: BID, # 60 Mary nn 00 cap, 3 Refill(s), Pharmacy: [facility] #[id number] pregabalin 2018-06 Yes 75 mg = 1 Me moria 75 MG Oral 1-25 cap, PO, l Capsule 15:17: BID, # 60 Mary nn [Lyrica] 29 cap, 3 Refill(s) pregabalin 2018-06 Yes 75 mg = 1 Me moria 75 MG Oral 1-25 cap, PO, l Capsule 15:17: BID, # 60 Mary nn [Lyrica] 29 cap, 3 Refill(s) pregabalin 2018-06 Yes 75 mg = 1 Me moria 75 MG Oral 1-25 cap, PO, l Capsule 15:17: BID, # 60 Mary nn [Lyrica] 29 cap, 3 Refill(s) pregabalin 2018-06 Yes 75 mg = 1 Me moria 75 MG Oral 1-25 cap, PO, l Capsule 15:17: BID, # 60 Mary nn [Lyrica] 29 cap, 3 Refill(s) pregabalin 2018-06 Yes 75 mg = 1 Me moria 75 MG Oral 1-25 cap, PO, l Capsule 15:17: BID, # 60 Mary nn [Lyrica] 29 cap, 3 Refill(s) pregabalin 2018-06 Yes 75 mg = 1 Me moria 75 MG Oral 1-25 cap, PO, l Capsule 15:17: BID, # 60 Mary nn [Lyrica] 29 cap, 3 Refill(s) pregabalin 2018-06 Yes 75 mg = 1 Me moria 75 MG Oral 1-25 cap, PO, l Capsule 15:17: BID, # 60 Mary nn [Lyrica] 29 cap, 3 Refill(s) pregabalin 2018-06 Yes 75 mg = 1 Me moria 75 MG Oral 1-25 cap, PO, l Capsule 15:17: BID, # 60 Mary nn [Lyrica] 29 cap, 3 Refill(s) pregabalin 2018-06 Yes 75 mg = 1 Me moria 75 MG Oral 1-25 cap, PO, l Capsule 15:17: BID, # 60 Mary nn [Lyrica] 29 cap, 3 Refill(s) pregabalin 2018-06 Yes 75 mg = 1 Me moria 75 MG Oral 1-25 cap, PO, l Capsule 15:17: BID, # 60 Mary nn [Lyrica] 29 cap, 3 Refill(s) topiramate 2018-06 Yes 100 mg = 1 M emoria 100 mg oral 0-11 tab, PO, l tablet 15:16: Bedtime, # Mary nn 10 90 tab, 3 Refill(s), Pharmacy: [id number] topiramate 2018-06 Yes 100 mg = 1 M emoria 100 mg oral 0-11 tab, PO, l tablet 15:16: Bedtime, # Mary nn 10 90 tab, 3 Refill(s), Pharmacy: [facility] #[id number] topiramate 2018-06 Yes 100 mg = 1 M emoria 100 mg oral 0-11 tab, PO, l tablet 15:16: Bedtime, # Mary nn 10 90 tab, 3 Refill(s), Pharmacy: [facility] #[id number] topiramate 2018-06 Yes 100 mg = 1 M emoria 100 mg oral 0-11 tab, PO, l tablet 15:16: Bedtime, # Mary nn 10 90 tab, 3 Refill(s), Pharmacy: [facility] #[id number] topiramate 2018-06 Yes 100 mg = 1 M emoria 100 mg oral 0-11 tab, PO, l tablet 15:16: Bedtime, # Mary nn 10 90 tab, 3 Refill(s), Pharmacy: [facility] #[id number] topiramate 2018-06 Yes 100 mg = 1 M emoria 100 mg oral 0-11 tab, PO, l tablet 15:16: Bedtime, # Mary nn 10 90 tab, 3 Refill(s), Pharmacy: [id number] topiramate 2018-06 Yes 100 mg = 1 M emoria 100 mg oral 0-11 tab, PO, l tablet 15:16: Bedtime, # Mary nn 10 90 tab, 3 Refill(s), Pharmacy: [facility] #[id number] topiramate 2018-06 Yes 100 mg = 1 M emoria 100 mg oral 0-11 tab, PO, l tablet 15:16: Bedtime, # Mary nn 10 90 tab, 3 Refill(s), Pharmacy: [facility] #[id number] topiramate 2018- Yes 100 mg = 1 M emoria 100 mg oral 0-11 tab, PO, l tablet 15:16: Bedtime, Julisa Roquea nn 10 90 tab, 3 Refill(s), Pharmacy: [facility] #[id number] topiramate 2018- Yes 100 mg = 1 M emoria 100 mg oral 0-11 tab, PO, l tablet 15:16: Bedtime, Julisa Hernandez nn 10 90 tab, 3 Refill(s), Pharmacy: [facility] #[id number] pregabalin 2018-06 Yes 75 mg = 1 Me moria 75 MG Oral 0-11 cap, PO, l Capsule 15:16: Daily, # Piero n [Lyrica] 00 30 cap, 2 Refill(s) pregabalin 2018-06 Yes 75 mg = 1 Me moria 75 MG Oral 0-11 cap, PO, l Capsule 15:16: Daily, # Piero n [Lyrica] 00 30 cap, 2 Refill(s) pregabalin 2018-06 Yes 75 mg = 1 Me moria 75 MG Oral 0-11 cap, PO, l Capsule 15:16: Daily, # Piero n [Lyrica] 00 30 cap, 2 Refill(s) pregabalin 2018-06 Yes 75 mg = 1 Me moria 75 MG Oral 0-11 cap, PO, l Capsule 15:16: Daily, # Piero n [Lyrica] 00 30 cap, 2 Refill(s) pregabalin 2018-06 Yes 75 mg = 1 Me moria 75 MG Oral 0-11 cap, PO, l Capsule 15:16: Daily, # Piero n [Lyrica] 00 30 cap, 2 Refill(s) pregabalin 2018-06 Yes 75 mg = 1 Me moria 75 MG Oral 0-11 cap, PO, l Capsule 15:16: Daily, # Piero n [Lyrica] 00 30 cap, 2 Refill(s) pregabalin 2018-06 Yes 75 mg = 1 Me moria 75 MG Oral 0-11 cap, PO, l Capsule 15:16: Daily, # Piero n [Lyrica] 00 30 cap, 2 Refill(s) pregabalin 2018-06 Yes 75 mg = 1 Me moria 75 MG Oral 0-11 cap, PO, l Capsule 15:16: Daily, Julisa Harry n [Lyrica] 00 30 cap, 2 Refill(s) pregabalin 2018-06 Yes 75 mg = 1 Me moria 75 MG Oral 0-11 cap, PO, l Capsule 15:16: Daily, Julisa Harry n [Lyrica] 00 30 cap, 2 Refill(s) pregabalin 2018-06 Yes 75 mg = 1 Me moria 75 MG Oral 0-11 cap, PO, l Capsule 15:16: Daily, Julisa Harry n [Lyrica] 00 30 cap, 2 Refill(s) Opal Joseph 2020- No Na Dejesus 1 puff [facility] Ellipta 08-03 [facility] 00:00: 00:00 - [facility] 00 :00 [facility] topiramate 2017-06 No 100 mg = 1 M emoria 100 mg oral 0-15 tab, PO, l tablet 19:36: BID, # 180 Mary nn 08 tab, 3 Refill(s), [facility]acy: [id number] topiramate 2017-06 No 100 mg = 1 M emoria 100 mg oral 0-15 tab, PO, l tablet 19:36: BID, # 180 Mary nn 08 tab, 3 Refill(s), Pharmacy: [id number] topiramate 2017-06 No 100 mg = 1 M emoria 100 mg oral 0-15 tab, PO, l tablet 19:36: BID, # 180 Mary nn 08 tab, 3 Refill(s), Pharmacy: [email or web address] #[id number] topiramate 2017-06 No 100 mg = 1 M emoria 100 mg oral 0-15 tab, PO, l tablet 19:36: BID, # 180 Mary nn 08 tab, 3 Refill(s), Pharmacy: [facility] #[id number] topiramate 2017-06 No 100 mg = 1 M emoria 100 mg oral 0-15 tab, PO, l tablet 19:36: BID, # 180 Mary nn 08 tab, 3 Refill(s), Pharmacy: [id number] topiramate 2017-06 No 100 mg = 1 M emoria 100 mg oral 0-15 tab, PO, l tablet 19:36: BID, # 180 Mary nn 08 tab, 3 Refill(s), Pharmacy: [facility] #[id number] topiramate 2018- No 100 mg = 1 M emoria 100 mg oral 0-15 tab, PO, l tablet 19:36: BID, # 180 Mary nn 08 tab, 3 Refill(s), [id number]- No 100 mg = 1 M emoria 100 mg oral 0-15 tab, PO, l tablet 19:36: BID, # 180 Mary nn 08 tab, 3 Refill(s), Pharmacy: [facility] #[id number] topiramate 2018- No 100 mg = 1 M emoria 100 mg oral 0-15 tab, PO, l tablet 19:36: BID, # 180 Mary nn 08 tab, 3 Refill(s), [id number] 2018- No 100 mg = 1 M emoria 100 mg oral 0-15 tab, PO, l tablet 19:36: BID, # 180 Mary nn 08 tab, 3 Refill(s), Pharmacy: [facility] #[id number] topiramate 2018- No 100 mg = 1 M emoria 100 mg oral 0-12 tab, PO, l tablet 15:28: BID, X 90 Piero n 00 day, # 180 tab, 3 Refill(s), [id number] 2018- No 100 mg = 1 M emoria 100 mg oral 0-12 tab, PO, l tablet 15:28: BID, X 90 Piero n 00 day, # 180 tab, 3 Refill(s), Pharmacy: [facility] #[id number] topiramate 2018- No 100 mg = 1 M emoria 100 mg oral 0-12 tab, PO, l tablet 15:28: BID, X 90 Piero n 00 day, # 180 tab, 3 Refill(s), Pharmacy: [facility] #[id number] topiramate 2018- No 100 mg = 1 M emoria 100 mg oral 0-12 tab, PO, l tablet 15:28: BID, X 90 Piero n 00 day, # 180 tab, 3 Refill(s), Pharmacy: [email or web address] #[id number] topiramate 2017-06 No 100 mg = 1 M emoria 100 mg oral 0-12 tab, PO, l tablet 15:28: BID, X 90 Piero n 00 day, # 180 tab, 3 Refill(s), [id number] 2017-06 No 100 mg = 1 M emoria 100 mg oral 0-12 tab, PO, l tablet 15:28: BID, X 90 Piero n 00 day, # 180 tab, 3 Refill(s), [id number] 2017-06 No 100 mg = 1 M emoria 100 mg oral 0-12 tab, PO, l tablet 15:28: BID, X 90 Piero n 00 day, # 180 tab, 3 Refill(s), [id number] 2017-06 No 100 mg = 1 M emoria 100 mg oral 0-12 tab, PO, l tablet 15:28: BID, X 90 Piero n 00 day, # 180 tab, 3 Refill(s), [facility] #[id number] topiramate 2017-06 No 100 mg = 1 M emoria 100 mg oral 0-12 tab, PO, l tablet 15:28: BID, X 90 Piero n 00 day, # 180 tab, 3 Refill(s), [id number] 2017-06 No 100 mg = 1 M emoria 100 mg oral 0-12 tab, PO, l tablet 15:28: BID, X 90 Pier[place] n 00 day, # 180 tab, 3 Refill(s), [id number] topiramate No See Memoria 50 mg oral 7-20 Instructio l tablet 00:01: ns, # 180 Piero n 41 tab, Refill(s) 2, TAKE 1 TABLET BY MOUTH TWICE A DAY, [id number] topiramate 2017- No See Memoria 50 mg oral 7-20 Instructio l tablet 00:01: ns, # 180 Pier[place] n 41 tab, Refill(s) 2, TAKE 1 TABLET BY MOUTH TWICE A DAY, [id number] topiramate 2018-0 No See Memoria 50 mg oral 7-20 Instructio l tablet 00:01: ns, # 180 Pier[place] n 41 tab, Refill(s) 2, TAKE 1 TABLET BY MOUTH TWICE A DAY, Pharmacy: [facility] #[id number] topiramate 0 No See Memoria 50 mg oral 7-20 Instructio l tablet 00:01: ns, # 180 Pier[place] n 41 tab, Refill(s) 2, TAKE 1 TABLET BY MOUTH TWICE A DAY, Pharmacy: [facility] #[id number] topiramate No See Memoria 50 mg oral 7-20 Instructio l tablet 00:01: ns, # 180 Pier[place] n 41 tab, Refill(s) 2, TAKE 1 TABLET BY MOUTH TWICE A DAY, Pharmacy: [facility] #[id number] topiramate No See Memoria 50 mg oral 7-20 Instructio l tablet 00:01: ns, # 180 Pier[place] n 41 tab, Refill(s) 2, TAKE 1 TABLET BY MOUTH TWICE A DAY, Pharmacy: [facility] #[id number] topiramate 0 No See Memoria 50 mg oral 7-20 Instructio l tablet 00:01: ns, # 180 Pier[place] n 41 tab, Refill(s) 2, TAKE 1 TABLET BY MOUTH TWICE A DAY, Pharmacy: [facility] #[id number] topiramate 0 No See Memoria 50 mg oral 7-20 Instructio l tablet 00:01: ns, # 180 Pier[place] n 41 tab, Refill(s) 2, TAKE 1 TABLET BY MOUTH TWICE A DAY, Pharmacy: [facility] #[id number] topiramate 0 No See Memoria 50 mg oral 7-20 Instructio l tablet 00:01: ns, # 180 Pier[place] n 41 tab, Refill(s) 2, TAKE 1 TABLET BY MOUTH TWICE A DAY, Pharmacy: [facility] #[id number] topiramate 2017-0 No See Memoria 50 mg oral 7-20 Instructio l tablet 00:01: ns, # 180 Pier[place] n 41 tab, Refill(s) 2, TAKE 1 TABLET BY MOUTH TWICE A DAY, Pharmacy: [facility] #[id number] Hydrochloro 2018-0 Yes PO, Daily, Memoria thiazide 3-15 0 l 19:55: Refill(s) Abad 00 tramadol 2018-0 Yes 50 mg = 1 Taj hayden hydrochlori 3-15 tab, PO, l de 50 MG 19:55: Q4H, 0 [place] Oral Tablet 00 Refill(s) Fluticasone Yes 1 spray, Me moria propionate 3-15 NASAL, l 0.05 19:55: Daily, 0 Abad MG/ACTUAT 00 Refill(s) Metered Dose Nasal Adger [Flonase] topiramate No 50 mg = 1 Me moria 50 MG Oral 3-15 tab, PO, l Tablet 19:55: BID, # 60 Piero n [Topamax] 00 tab, 0 Refill(s) Childrens Yes 1 spray, Taj hayden Flonase 50 3-15 NASAL, l mcg/inh 19:55: Daily, 0 [place] nasal spray 00 Refill(s) hydrochloro 0 Yes PO, Daily, Memoria thiazide 3-15 0 l 19:55: Refill(s) [place] 00 Hydrochloro 2017-0 Yes PO, Daily, Memoria thiazide 3-15 0 l 19:55: Refill(s) [place] 00 tramadol Yes 50 mg = 1 Taj hayden hydrochlori 3-15 tab, PO, l de 50 MG 19:55: Q4H, 0 Abad Oral Tablet 00 Refill(s) Fluticasone Yes 1 spray, Me moria propionate 3-15 NASAL, l 0.05 19:55: Daily, 0 Abad MG/ACTUAT 00 Refill(s) Metered Dose Nasal Adger [Flonase] topiramate No 50 mg = 1 Me moria 50 MG Oral 3-15 tab, PO, l Tablet 19:55: BID, # 60 Pier[place] n [Topamax] 00 tab, 0 Refill(s) Hydrochloro 2018-0 Yes PO, Daily, Memoria thiazide 3-15 0 l 19:55: Refill(s) [place] 00 tramadol 0 Yes 50 mg = 1 Taj hayden hydrochlori 3-15 tab, PO, l de 50 MG 19:55: Q4H, 0 [place] Oral Tablet 00 Refill(s) Fluticasone Yes 1 spray, Me moria propionate 3-15 NASAL, l 0.05 19:55: Daily, 0 [place] MG/ACTUAT 00 Refill(s) Metered Dose Nasal Adger [Flonase] topiramate No 50 mg = 1 Me moria 50 MG Oral 3-15 tab, PO, l Tablet 19:55: BID, # 60 [place] n [Topamax] 00 tab, 0 Refill(s) Hydrochloro 2018-0 Yes PO, Daily, Memoria thiazide 3-15 0 l 19:55: Refill(s) Abad 00 tramadol 0 Yes 50 mg = 1 Taj hayden hydrochlori 3-15 tab, PO, l de 50 MG 19:55: Q4H, 0 Abad Oral Tablet 00 Refill(s) Fluticasone Yes 1 spray, Me moria propionate 3-15 NASAL, l 0.05 19:55: Daily, 0 [place] MG/ACTUAT 00 Refill(s) Metered Dose Nasal Adger [Flonase] topiramate No 50 mg = 1 Me moria 50 MG Oral 3-15 tab, PO, l Tablet 19:55: BID, # 60 [place] n [Topamax] 00 tab, 0 Refill(s) Childrens Yes 1 spray, Taj hayden Flonase 50 3-15 NASAL, l mcg/inh 19:55: Daily, 0 [place] nasal spray 00 Refill(s) hydrochloro 2018-0 Yes PO, Daily, Memoria thiazide 3-15 0 l 19:55: Refill(s) [place] 00 Hydrochloro 2018-0 Yes PO, Daily, Memoria thiazide 3-15 0 l 19:55: Refill(s) [place] 00 tramadol 0 Yes 50 mg = 1 Taj hayden hydrochlori 3-15 tab, PO, l de 50 MG 19:55: Q4H, 0 [place] Oral Tablet 00 Refill(s) Fluticasone 0 Yes 1 spray, Me moria propionate 3-15 NASAL, l 0.05 19:55: Daily, 0 [place] MG/ACTUAT 00 Refill(s) Metered Dose Nasal Adger [Flonase] topiramate No 50 mg = 1 Me moria 50 MG Oral 3-15 tab, PO, l Tablet 19:55: BID, # 60 [place] [Topamax] 00 tab, 0 Refill(s) Childrens Yes 1 spray, Taj hayden Flonase 50 3-15 NASAL, l mcg/inh 19:55: Daily, 0 [place] nasal spray 00 Refill(s) hydrochloro 2018-0 Yes PO, Daily, Memoria thiazide 3-15 0 l 19:55: Refill(s) [place] 00 Hydrochloro 2018-0 Yes PO, Daily, Memoria thiazide 3-15 0 l 19:55: Refill(s) [place] 00 tramadol Yes 50 mg = 1 Taj hayden hydrochlori 3-15 tab, PO, l de 50 MG 19:55: Q4H, 0 [place] Oral Tablet 00 Refill(s) Fluticasone Yes 1 spray, Me moria propionate 3-15 NASAL, l 0.05 19:55: Daily, 0 Abad MG/ACTUAT 00 Refill(s) Metered Dose Nasal Adger [Flonase] topiramate No 50 mg = 1 Me moria 50 MG Oral 3-15 tab, PO, l Tablet 19:55: BID, # 60 [place] n [Topamax] 00 tab, 0 Refill(s) Childrens Yes 1 spray, Taj hayden Flonase 50 3-15 NASAL, l mcg/inh 19:55: Daily, 0 [place] nasal spray 00 Refill(s) hydrochloro 2017-0 Yes PO, Daily, Memoria thiazide 3-15 0 l 19:55: Refill(s) Abad 00 Hydrochloro 2018-0 Yes PO, Daily, Memoria thiazide 3-15 0 l 19:55: Refill(s) [place] 00 tramadol 0 Yes 50 mg = 1 Taj hayden hydrochlori 3-15 tab, PO, l de 50 MG 19:55: Q4H, 0 [place] Oral Tablet 00 Refill(s) Fluticasone Yes 1 spray, Me moria propionate 3-15 NASAL, l 0.05 19:55: Daily, 0 [place] MG/ACTUAT 00 Refill(s) Metered Dose Nasal Adger [Flonase] topiramate No 50 mg = 1 Me moria 50 MG Oral 3-15 tab, PO, l Tablet 19:55: BID, # 60 [place] [Topamax] 00 tab, 0 Refill(s) Childrens 0 Yes 1 spray, Taj hayden Flonase 50 3-15 NASAL, l mcg/inh 19:55: Daily, 0 [place] nasal spray 00 Refill(s) hydrochloro 2018-0 Yes PO, Daily, Memoria thiazide 3-15 0 l 19:55: Refill(s) Abad 00 Hydrochloro 2018-0 Yes PO, Daily, Memoria thiazide 3-15 0 l 19:55: Refill(s) Abad tramadol 0 Yes 50 mg = 1 Taj hayden hydrochlori 3-15 tab, PO, l de 50 MG 19:55: Q4H, 0 Abad Oral Tablet 00 Refill(s) Fluticasone Yes 1 spray, Me moria propionate 3-15 NASAL, l 0.05 19:55: Daily, 0 Abad MG/ACTUAT 00 Refill(s) Metered Dose Nasal Adger [Flonase] topiramate No 50 mg = 1 Me moria 50 MG Oral 3-15 tab, PO, l Tablet 19:55: BID, # 60 [place] [Topamax] 00 tab, 0 Refill(s) Childrens Yes 1 spray, Taj hayden Flonase 50 3-15 NASAL, l mcg/inh 19:55: Daily, 0 [place] nasal spray 00 Refill(s) hydrochloro 2018-0 Yes PO, Daily, Memoria thiazide 3-15 0 l 19:55: Refill(s) [place] 00 Hydrochloro 2018-0 Yes PO, Daily, Memoria thiazide 3-15 0 l 19:55: Refill(s) Abad 00 tramadol 0 Yes 50 mg = 1 Taj hayden hydrochlori 3-15 tab, PO, l de 50 MG 19:55: Q4H, 0 [place] Oral Tablet 00 Refill(s) Fluticasone 0 Yes 1 spray, Me moria propionate 3-15 NASAL, l 0.05 19:55: Daily, 0 [place] MG/ACTUAT 00 Refill(s) Metered Dose Nasal Adger [Flonase] topiramate No 50 mg = 1 Me moria 50 MG Oral 3-15 tab, PO, l Tablet 19:55: BID, # 60 [place] [Topamax] 00 tab, 0 Refill(s) Childrens 0 Yes 1 spray, Taj hayden Flonase 50 3-15 NASAL, l mcg/inh 19:55: Daily, 0 [place] nasal spray 00 Refill(s) hydrochloro 2018-0 Yes PO, Daily, Memoria thiazide 3-15 0 l 19:55: Refill(s) [place] 00 Hydrochloro 2018-0 Yes PO, Daily, Memoria thiazide 3-15 0 l 19:55: Refill(s) Abad tramadol Yes 50 mg = 1 Taj hayden hydrochlori 3-15 tab, PO, l de 50 MG 19:55: Q4H, 0 Abad Oral Tablet 00 Refill(s) Fluticasone Yes 1 spray, Me moria propionate 3-15 NASAL, l 0.05 19:55: Daily, 0 [place] MG/ACTUAT 00 Refill(s) Metered Dose Nasal Adger [Flonase] topiramate No 50 mg = 1 Me moria 50 MG Oral 3-15 tab, PO, l Tablet 19:55: BID, # 60 [place] [Topamax] 00 tab, 0 Refill(s) Childrens Yes 1 spray, Taj hayden Flonase 50 3-15 NASAL, l mcg/inh 19:55: Daily, 0 [place] nasal spray 00 Refill(s) hydrochloro 0 Yes PO, Daily, Memoria thiazide 3-15 0 l 19:55: Refill(s) Abad 00 nortriptyli Yes Substituti Memoria ne 10 mg 6-27 on Allowed l oral 08:55: Abad capsule 14 nortriptyli Yes Substituti Memoria ne 10 mg 6-27 on Allowed l oral 08:55: [place] capsule 14 nortriptyli Yes Substituti Memoria ne 10 mg 6-27 on Allowed l oral 08:55: [place] capsule 14 nortriptyli Yes Substituti Memoria ne 10 mg 6-27 on Allowed l oral 08:55: Abad capsule 14 nortriptyli Yes Substituti Memoria ne 10 mg 6-27 on Allowed l oral 08:55: Abad capsule 14 nortriptyli Yes Substituti Memoria ne 10 mg 6-27 on Allowed l oral 08:55: Abad capsule 14 nortriptyli Yes Substituti Memoria ne 10 mg 6-27 on Allowed l oral 08:55: Abad capsule 14 nortriptyli Yes Substituti Memoria ne 10 mg 6-27 on Allowed l oral 08:55: [place] capsule 14 meclizine Yes tab, Memoria 25 mg oral 6-27 Substituti l tablet 08:54: on Allowed Mary nn 59 meclizine Yes tab, Memoria 25 mg oral 6-27 Substituti l tablet 08:54: on Allowed Mary nn 59 meclizine Yes tab, Memoria 25 mg oral 6-27 Substituti l tablet 08:54: on Allowed Mary nn 59 meclizine Yes tab, Memoria 25 mg oral 6-27 Substituti l tablet 08:54: on Allowed Mary nn 59 meclizine Yes tab, Memoria 25 mg oral 6-27 Substituti l tablet 08:54: on Allowed Mary nn 59 meclizine Yes tab, Memoria 25 mg oral 6-27 Substituti l tablet 08:54: on Allowed Mary nn 59 meclizine Yes tab, Memoria 25 mg oral 6-27 Substituti l tablet 08:54: on Allowed Mary nn 59 meclizine Yes tab, Memoria 25 mg oral 6-27 Substituti l tablet 08:54: on Allowed Mary nn 59 bisoprolol- Yes Substituti Memoria hydrochloro 6-27 on l thiazide 08:54: Allowed, Mary nn 2.5 mg-6.25 49 Maintenanc mg oral e tablet bisoprolol- Yes Substituti Memoria hydrochloro 6-27 on l thiazide 08:54: Allowed, Mary nn 2.5 mg-6.25 49 Maintenanc mg oral e tablet bisoprolol- Yes Substituti Memoria hydrochloro 6-27 on l thiazide 08:54: Allowed, Mary nn 2.5 mg-6.25 49 Maintenanc mg oral e tablet bisoprolol- Yes Substituti Memoria hydrochloro 6-27 on l thiazide 08:54: Allowed, Mary nn 2.5 mg-6.25 49 Maintenanc mg oral e tablet bisoprolol Yes Substituti Memoria hydrochloro 6-27 on l thiazide 08:54: Allowed, Mary nn 2.5 mg-6.25 49 Maintenanc mg oral e tablet bisoprolol Yes Substituti Memoria hydrochloro 6-27 on l thiazide 08:54: Allowed, Mary nn 2.5 mg-6.25 49 Maintenanc mg oral e tablet bisoprolol- Yes Substituti Memoria hydrochloro 6-27 on l thiazide 08:54: Allowed, Mary nn 2.5 mg-6.25 49 Maintenanc mg oral e tablet bisoprolol Yes Substituti Memoria hydrochloro 6-27 on l thiazide 08:54: Allowed, Mary nn 2.5 mg-6.25 49 Maintenanc mg oral e tablet Claritin 10 Claritin 10 No 1{table QD Claritin MG MG t} 10 MG Baclofen 10 Baclofen 10 No 1{table BID Baclofen MG MG t_as_ne 10 MG eded} Fluticasone Fluticasone No 1{spray QD Fluticason Propionate Propionate _in_eac e 50 MCG/ACT 50 MCG/ACT h_nostr Propionate il} 50 MCG/ACT metFORMIN metFORMIN No 1{table BID metFORMIN HCl 500 MG HCl 500 MG t_with_ HCl 500 MG a_meal} Fluticasone Fluticasone No Fluticason Propionate Propionate e 50 MCG/ACT 50 MCG/ACT Propionate 50 MCG/ACT Tadalafil 5 Tadalafil 5 No 1{table QD Tadalafil MG MG t_as_ne 5 MG eded} Propranolol Propranolol No Propranolo HCl 40 MG HCl 40 MG l HCl 40 MG Gabapentin Gabapentin No 1{capsu QD Gabapentin 400 MG 400 MG le} 400 MG Cyclobenzap Cyclobenzap No Cyclobenza rine HCl 10 rine HCl 10 pauline HCl MG MG 10 MG Tamsulosin Tamsulosin No 1{capsu QD Tamsulosin HCl 0.4 MG HCl 0.4 MG le} HCl 0.4 MG Montelukast Montelukast No Montelukas Sodium 10 Sodium 10 t Sodium MG MG 10 MG Metoprolol Metoprolol No 1{table BID Metoprolol Tartrate 25 Tartrate 25 t_with_ Tartrate MG MG food} 25 MG Singulair Singulair No Singulair 10 MG 10 MG 10 MG Loratadine Loratadine No Loratadine 10 MG 10 MG 10 MG Breo Breo No 1{puff} QD Breo Ellipta Ellipta Ellipta 100-25 100-25 100-25 MCG/INH MCG/INH MCG/INH Lyrica 75 Lyrica 75 No 1{capsu BID Lyrica 75 MG MG le} MG Claritin 10 Claritin 10 No 1{table QD Claritin MG MG t} 10 MG Baclofen 10 Baclofen 10 No 1{table BID Baclofen MG MG t_as_ne 10 MG eded} Fluticasone Fluticasone No 1{spray QD Fluticason Propionate Propionate _in_eac e 50 MCG/ACT 50 MCG/ACT h_nostr Propionate il} 50 MCG/ACT metFORMIN metFORMIN No 1{table BID metFORMIN HCl 500 MG HCl 500 MG t_with_ HCl 500 MG a_meal} Fluticasone Fluticasone No Fluticason Propionate Propionate e 50 MCG/ACT 50 MCG/ACT Propionate 50 MCG/ACT Tadalafil 5 Tadalafil 5 No 1{table QD Tadalafil MG MG t_as_ne 5 MG eded} Propranolol Propranolol No Propranolo HCl 40 MG HCl 40 MG l HCl 40 MG Gabapentin Gabapentin No 1{capsu QD Gabapentin 400 MG 400 MG le} 400 MG Cyclobenzap Cyclobenzap No Cyclobenza rine HCl 10 rine HCl 10 pauline HCl MG MG 10 MG Tamsulosin Tamsulosin No 1{capsu QD Tamsulosin HCl 0.4 MG HCl 0.4 MG le} HCl 0.4 MG Montelukast Montelukast No Montelukas Sodium 10 Sodium 10 t Sodium MG MG 10 MG Metoprolol Metoprolol No 1{table BID Metoprolol Tartrate 25 Tartrate 25 t_with_ Tartrate MG MG food} 25 MG Singulair Singulair No Singulair 10 MG 10 MG 10 MG Tadalafil 5 Tadalafil 5 No 1{table QD Tadalafil MG MG t_as_ne 5 MG eded} metFORMIN metFORMIN No 1{table BID metFORMIN HCl 500 MG HCl 500 MG t_with_ HCl 500 MG a_meal} Metoprolol Metoprolol No 1{table BID Metoprolol Tartrate 25 Tartrate 25 t_with_ Tartrate MG MG food} 25 MG Baclofen 10 Baclofen 10 No 1{table BID Baclofen MG MG t_as_ne 10 MG eded} Propranolol Propranolol No Propranolo HCl 40 MG HCl 40 MG l HCl 40 MG Tamsulosin Tamsulosin No 1{capsu QD Tamsulosin HCl 0.4 MG HCl 0.4 MG le} HCl 0.4 MG Cyclobenzap Cyclobenzap No Cyclobenza rine HCl 10 rine HCl 10 pauline HCl MG MG 10 MG Fluticasone Fluticasone No 1{spray QD Fluticason Propionate Propionate _in_eac e 50 MCG/ACT 50 MCG/ACT h_nostr Propionate il} 50 MCG/ACT Singulair Singulair No Singulair 10 MG 10 MG 10 MG Gabapentin Gabapentin No 1{capsu QD Gabapentin 400 MG 400 MG le} 400 MG Loratadine Loratadine No Loratadine 10 MG 10 MG 10 MG Claritin 10 Claritin 10 No 1{table QD Claritin MG MG t} 10 MG Montelukast Montelukast No Montelukas Sodium 10 Sodium 10 t Sodium MG MG 10 MG Lyrica 75 Lyrica 75 No 1{capsu BID Lyrica 75 MG MG le} MG Tadalafil 5 Tadalafil 5 No 1{table QD Tadalafil MG MG t_as_ne 5 MG eded} Fluticasone Fluticasone No Fluticason Propionate Propionate e 50 MCG/ACT 50 MCG/ACT Propionate 50 MCG/ACT Breo Breo No 1{puff} QD Breo Ellipta Ellipta Ellipta 100-25 100-25 100-25 MCG/INH MCG/INH MCG/INH Tamsulosin Tamsulosin No 1{capsu QD Tamsulosin HCl 0.4 MG HCl 0.4 MG le} HCl 0.4 MG Tadalafil 5 Tadalafil 5 No 1{table QD Tadalafil MG MG t_as_ne 5 MG eded} metFORMIN metFORMIN No 1{table BID metFORMIN HCl 500 MG HCl 500 MG t_with_ HCl 500 MG a_meal} Metoprolol Metoprolol No 1{table BID Metoprolol Tartrate 25 Tartrate 25 t_with_ Tartrate MG MG food} 25 MG Baclofen 10 Baclofen 10 No 1{table BID Baclofen MG MG t_as_ne 10 MG eded} Propranolol Propranolol No Propranolo HCl 40 MG HCl 40 MG l HCl 40 MG Tamsulosin Tamsulosin No 1{capsu QD Tamsulosin HCl 0.4 MG HCl 0.4 MG le} HCl 0.4 MG Cyclobenzap Cyclobenzap No Cyclobenza rine HCl 10 rine HCl 10 pauline HCl MG MG 10 MG Fluticasone Fluticasone No 1{spray QD Fluticason Propionate Propionate _in_eac e 50 MCG/ACT 50 MCG/ACT h_nostr Propionate il} 50 MCG/ACT Singulair Singulair No Singulair 10 MG 10 MG 10 MG Gabapentin Gabapentin No 1{capsu QD Gabapentin 400 MG 400 MG le} 400 MG Loratadine Loratadine No Loratadine 10 MG 10 MG 10 MG Claritin 10 Claritin 10 No 1{table QD Claritin MG MG t} 10 MG Montelukast Montelukast No Montelukas Sodium 10 Sodium 10 t Sodium MG MG 10 MG Lyrica 75 Lyrica 75 No 1{capsu BID Lyrica 75 MG MG le} MG Tadalafil 5 Tadalafil 5 No 1{table QD Tadalafil MG MG t_as_ne 5 MG eded} Fluticasone Fluticasone No Fluticason Propionate Propionate e 50 MCG/ACT 50 MCG/ACT Propionate 50 MCG/ACT Breo Breo No 1{puff} QD Breo Ellipta Ellipta Ellipta 100-25 100-25 100-25 MCG/INH MCG/INH MCG/INH Tamsulosin Tamsulosin No 1{capsu QD Tamsulosin HCl 0.4 MG HCl 0.4 MG le} HCl 0.4 MG Tadalafil 5 Tadalafil 5 No 1{table QD Tadalafil MG MG t_as_ne 5 MG eded} metFORMIN metFORMIN No 1{table BID metFORMIN HCl 500 MG HCl 500 MG t_with_ HCl 500 MG a_meal} Metoprolol Metoprolol No 1{table BID Metoprolol Tartrate 25 Tartrate 25 t_with_ Tartrate MG MG food} 25 MG Baclofen 10 Baclofen 10 No 1{table BID Baclof[place] MG MG t_as_ne 10 MG eded} Propranolol Propranolol No Propranolo HCl 40 MG HCl 40 MG l HCl 40 MG Tamsulosin Tamsulosin No 1{capsu QD Tamsulosin HCl 0.4 MG HCl 0.4 MG le} HCl 0.4 MG Cyclobenzap Cyclobenzap No Cyclobenza rine HCl 10 rine HCl 10 pauline HCl MG MG 10 MG Fluticasone Fluticasone No 1{spray QD Fluticason Propionate Propionate _in_eac e 50 MCG/ACT 50 MCG/ACT h_nostr Propionate il} 50 MCG/ACT Singulair Singulair No Singulair 10 MG 10 MG 10 MG Gabapentin Gabapentin No 1{capsu QD Gabapentin 400 MG 400 MG le} 400 MG Loratadine Loratadine No Loratadine 10 MG 10 MG 10 MG Claritin 10 Claritin 10 No 1{table QD Claritin MG MG t} 10 MG Montelukast Montelukast No Montelukas Sodium 10 Sodium 10 t Sodium MG MG 10 MG Lyrica 75 Lyrica 75 No 1{capsu BID Lyrica 75 MG MG le} MG Tadalafil 5 Tadalafil 5 No 1{table QD Tadalafil MG MG t_as_ne 5 MG eded} Fluticasone Fluticasone No Fluticason Propionate Propionate e 50 MCG/ACT 50 MCG/ACT Propionate 50 MCG/ACT Breo Breo No 1{puff} QD Breo Ellipta Ellipta Ellipta 100-25 100-25 100-25 MCG/INH MCG/INH MCG/INH Tamsulosin Tamsulosin No 1{capsu QD Tamsulosin HCl 0.4 MG HCl 0.4 MG le} HCl 0.4 MG Baclofen 10 Baclofen 10 No 1{table BID Baclofen MG MG t_as_ne 10 MG eded} metFORMIN metFORMIN No metFORMIN HCl 500 MG HCl 500 MG HCl 500 MG Tamsulosin Tamsulosin No 1{capsu QD Tamsulosin HCl 0.4 MG HCl 0.4 MG le} HCl 0.4 MG Loratadine Loratadine No Loratadine 10 MG 10 MG 10 MG Cyclobenzap Cyclobenzap No Cyclobenza rine HCl 10 rine HCl 10 pauline HCl MG MG 10 MG Fluticasone Fluticasone No 1{spray QD Fluticason Propionate Propionate _in_eac e 50 MCG/ACT 50 MCG/ACT h_nostr Propionate il} 50 MCG/ACT Propranolol Propranolol No Propranolo HCl 40 MG HCl 40 MG l HCl 40 MG Singulair Singulair No Singulair 10 MG 10 MG 10 MG Lyrica 75 Lyrica 75 No 1{capsu BID Lyrica 75 MG MG le} MG Gabapentin Gabapentin No 1{capsu QD Gabapentin 400 MG 400 MG le} 400 MG Breo Breo No 1{puff} QD Breo Ellipta Ellipta Ellipta 100-25 100-25 100-25 MCG/INH MCG/INH MCG/INH Tamsulosin Tamsulosin No 1{capsu QD Tamsulosin HCl 0.4 MG HCl 0.4 MG le} HCl 0.4 MG Metoprolol Metoprolol No 1{table BID Metoprolol Tartrate 25 Tartrate 25 t_with_ Tartrate MG MG food} 25 MG Claritin 10 Claritin 10 No 1{table QD Claritin MG MG t} 10 MG Tadalafil 5 Tadalafil 5 No 1{table QD Tadalafil MG MG t_as_ne 5 MG eded} Fluticasone Fluticasone No Fluticason Propionate Propionate e 50 MCG/ACT 50 MCG/ACT Propionate 50 MCG/ACT Montelukast Montelukast No Montelukas Sodium 10 Sodium 10 t Sodium MG MG 10 MG Tadalafil 5 Tadalafil 5 No 1{table QD Tadalafil MG MG t_as_ne 5 MG eded} metFORMIN metFORMIN No metFORMIN HCl 500 MG HCl 500 MG HCl 500 MG Metoprolol Metoprolol No 1{table BID Metoprolol Tartrate 25 Tartrate 25 t_with_ Tartrate MG MG food} 25 MG Lyrica 75 Lyrica 75 No 1{capsu BID Lyrica 75 MG MG le} MG Tamsulosin Tamsulosin No 1{capsu QD Tamsulosin HCl 0.4 MG HCl 0.4 MG le} HCl 0.4 MG Cyclobenzap Cyclobenzap No Cyclobenza rine HCl 10 rine HCl 10 pauline HCl MG MG 10 MG Tadalafil 5 Tadalafil 5 No 1{table QD Tadalafil MG MG t_as_ne 5 MG eded} Breo Breo No 1{puff} QD Breo Ellipta Ellipta Ellipta 100-25 100-25 100-25 MCG/INH MCG/INH MCG/INH Gabapentin Gabapentin No 1{capsu QD Gabapentin 400 MG 400 MG le} 400 MG metFORMIN metFORMIN No metFORMIN HCl 500 MG HCl 500 MG HCl 500 MG Metoprolol Metoprolol No 1{table BID Metoprolol Tartrate 25 Tartrate 25 t_with_ Tartrate MG MG food} 25 MG Lyrica 75 Lyrica 75 No 1{capsu BID Lyrica 75 MG MG le} MG Tamsulosin Tamsulosin No 1{capsu QD Tamsulosin HCl 0.4 MG HCl 0.4 MG le} HCl 0.4 MG Cyclobenzap Cyclobenzap No Cyclobenza rine HCl 10 rine HCl 10 pauline HCl MG MG 10 MG Tadalafil 5 Tadalafil 5 No 1{table QD Tadalafil MG MG t_as_ne 5 MG eded} Breo Breo No 1{puff} QD Breo Ellipta Ellipta Ellipta 100-25 100-25 100-25 MCG/INH MCG/INH MCG/INH Gabapentin Gabapentin No 1{capsu QD Gabapentin 400 MG 400 MG le} 400 MG metFORMIN metFORMIN No metFORMIN HCl 500 MG HCl 500 MG HCl 500 MG Metoprolol Metoprolol No 1{table BID Metoprolol Tartrate 25 Tartrate 25 t_with_ Tartrate MG MG food} 25 MG Lyrica 75 Lyrica 75 No 1{capsu BID Lyrica 75 MG MG le} MG Tamsulosin Tamsulosin No 1{capsu QD Tamsulosin HCl 0.4 MG HCl 0.4 MG le} HCl 0.4 MG Cyclobenzap Cyclobenzap No Cyclobenza rine HCl 10 rine HCl 10 pauline HCl MG MG 10 MG Tadalafil 5 Tadalafil 5 No 1{table QD Tadalafil MG MG t_as_ne 5 MG eded} Breo Breo No 1{puff} QD Breo Ellipta Ellipta Ellipta 100-25 100-25 100-25 MCG/INH MCG/INH MCG/INH Gabapentin Gabapentin No 1{capsu QD Gabapentin 400 MG 400 MG le} 400 MG Tadalafil 5 Tadalafil 5 No 1{table QD Tadalafil MG MG t_as_ne 5 MG eded} Lyrica 75 Lyrica 75 No 1{capsu BID Lyrica 75 MG MG le} MG Gabapentin Gabapentin No 1{capsu QD Gabapentin 400 MG 400 MG le} 400 MG Tamsulosin Tamsulosin No 1{capsu QD Tamsulosin HCl 0.4 MG HCl 0.4 MG le} HCl 0.4 MG Metoprolol Metoprolol No 1{table BID Metoprolol Tartrate 25 Tartrate 25 t_with_ Tartrate MG MG food} 25 MG Breo Breo No 1{puff} QD Breo Ellipta Ellipta Ellipta 100-25 100-25 100-25 MCG/INH MCG/INH MCG/INH metFORMIN metFORMIN No metFORMIN HCl 500 MG HCl 500 MG HCl 500 MG Cyclobenzap Cyclobenzap No Cyclobenza rine HCl 10 rine HCl 10 pauline HCl MG MG 10 MG Tadalafil 5 Tadalafil 5 No 1{table QD Tadalafil MG MG t_as_ne 5 MG eded} Breo Breo No 1{puff} QD Breo Ellipta Ellipta Ellipta 100-25 100-25 100-25 MCG/INH MCG/INH MCG/INH Fluticasone Fluticasone No 1{spray QD Fluticason Propionate Propionate _in_eac e 50 MCG/ACT 50 MCG/ACT h_nostr Propionate il} 50 MCG/ACT Claritin 10 Claritin 10 No 1{table QD Claritin MG MG t} 10 MG Metoprolol Metoprolol No 1{table BID Metoprolol Tartrate 25 Tartrate 25 t_with_ Tartrate MG MG food} 25 MG Cyclobenzap Cyclobenzap No Cyclobenza rine HCl 10 rine HCl 10 pauline HCl MG MG 10 MG Gabapentin Gabapentin No 1{capsu QD Gabapentin 400 MG 400 MG le} 400 MG metFORMIN metFORMIN No metFORMIN HCl 500 MG HCl 500 MG HCl 500 MG Tamsulosin Tamsulosin No 1{capsu QD Tamsulosin HCl 0.4 MG HCl 0.4 MG le} HCl 0.4 MG Lyrica 75 Lyrica 75 No 1{capsu BID Lyrica 75 MG MG le} MG metFORMIN metFORMIN No 1{table BID metFORMIN HCl 500 MG HCl 500 MG t_with_ HCl 500 MG a_meal} Singulair Singulair No Singulair 10 MG 10 MG 10 MG Tadalafil 5 Tadalafil 5 No 1{table QD Tadalafil MG MG t_as_ne 5 MG eded} Breo Breo No 1{puff} QD Breo Ellipta Ellipta Ellipta 100-25 100-25 100-25 MCG/INH MCG/INH MCG/INH Fluticasone Fluticasone No 1{spray QD Fluticason Propionate Propionate _in_eac e 50 MCG/ACT 50 MCG/ACT h_nostr Propionate il} 50 MCG/ACT Claritin 10 Claritin 10 No 1{table QD Claritin MG MG t} 10 MG Metoprolol Metoprolol No 1{table BID Metoprolol Tartrate 25 Tartrate 25 t_with_ Tartrate MG MG food} 25 MG Cyclobenzap Cyclobenzap No Cyclobenza rine HCl 10 rine HCl 10 pauline HCl MG MG 10 MG Gabapentin Gabapentin No 1{capsu QD Gabapentin 400 MG 400 MG le} 400 MG metFORMIN metFORMIN No metFORMIN HCl 500 MG HCl 500 MG HCl 500 MG Tamsulosin Tamsulosin No 1{capsu QD Tamsulosin HCl 0.4 MG HCl 0.4 MG le} HCl 0.4 MG Lyrica 75 Lyrica 75 No 1{capsu BID Lyrica 75 MG MG le} MG metFORMIN metFORMIN No 1{table BID metFORMIN HCl 500 MG HCl 500 MG t_with_ HCl 500 MG a_meal} Singulair Singulair No Singulair 10 MG 10 MG 10 MG Fluticasone Fluticasone No 1{spray QD Fluticason Propionate Propionate _in_eac e 50 MCG/ACT 50 MCG/ACT h_nostr Propionate il} 50 MCG/ACT Breo Breo No 1{puff} QD Breo Ellipta Ellipta Ellipta 100-25 100-25 100-25 MCG/INH MCG/INH MCG/INH Metoprolol Metoprolol No Metoprolol Tartrate 25 Tartrate 25 Tartrate MG MG 25 MG metFORMIN metFORMIN No metFORMIN HCl 500 MG HCl 500 MG HCl 500 MG metFORMIN metFORMIN No 1{table BID metFORMIN HCl 500 MG HCl 500 MG t_with_ HCl 500 MG a_meal} Claritin 10 Claritin 10 No 1{table QD Claritin MG MG t} 10 MG Lyrica 75 Lyrica 75 No 1{capsu BID Lyrica 75 MG MG le} MG Tamsulosin Tamsulosin No 1{capsu QD Tamsulosin HCl 0.4 MG HCl 0.4 MG le} HCl 0.4 MG Cyclobenzap Cyclobenzap No Cyclobenza rine HCl 10 rine HCl 10 pauline HCl MG MG 10 MG Tadalafil 5 Tadalafil 5 No 1{table QD Tadalafil MG MG t_as_ne 5 MG eded} Gabapentin Gabapentin No 1{capsu QD Gabapentin 400 MG 400 MG le} 400 MG Singulair Singulair No Singulair 10 MG 10 MG 10 MG Fluticasone Fluticasone No 1{spray QD Fluticason Propionate Propionate _in_eac e 50 MCG/ACT 50 MCG/ACT h_nostr Propionate il} 50 MCG/ACT Breo Breo No 1{puff} QD Breo Ellipta Ellipta Ellipta 100-25 100-25 100-25 MCG/INH MCG/INH MCG/INH Metoprolol Metoprolol No Metoprolol Tartrate 25 Tartrate 25 Tartrate MG MG 25 MG metFORMIN metFORMIN No metFORMIN HCl 500 MG HCl 500 MG HCl 500 MG metFORMIN metFORMIN No 1{table BID metFORMIN HCl 500 MG HCl 500 MG t_with_ HCl 500 MG a_meal} Claritin 10 Claritin 10 No 1{table QD Claritin MG MG t} 10 MG Lyrica 75 Lyrica 75 No 1{capsu BID Lyrica 75 MG MG le} MG Tamsulosin Tamsulosin No 1{capsu QD Tamsulosin HCl 0.4 MG HCl 0.4 MG le} HCl 0.4 MG Cyclobenzap Cyclobenzap No Cyclobenza rine HCl 10 rine HCl 10 pauline HCl MG MG 10 MG Tadalafil 5 Tadalafil 5 No 1{table QD Tadalafil MG MG t_as_ne 5 MG eded} Gabapentin Gabapentin No 1{capsu QD Gabapentin 400 MG 400 MG le} 400 MG Singulair Singulair No Singulair 10 MG 10 MG 10 MG Fluticasone Fluticasone No 1{spray QD Fluticason Propionate Propionate _in_eac e 50 MCG/ACT 50 MCG/ACT h_nostr Propionate il} 50 MCG/ACT Breo Breo No 1{puff} QD Breo Ellipta Ellipta Ellipta 100-25 100-25 100-25 MCG/INH MCG/INH MCG/INH Metoprolol Metoprolol No Metoprolol Tartrate 25 Tartrate 25 Tartrate MG MG 25 MG metFORMIN metFORMIN No metFORMIN HCl 500 MG HCl 500 MG HCl 500 MG metFORMIN metFORMIN No 1{table BID metFORMIN HCl 500 MG HCl 500 MG t_with_ HCl 500 MG a_meal} Claritin 10 Claritin 10 No 1{table QD Claritin MG MG t} 10 MG Lyrica 75 Lyrica 75 No 1{capsu BID Lyrica 75 MG MG le} MG Tamsulosin Tamsulosin No 1{capsu QD Tamsulosin HCl 0.4 MG HCl 0.4 MG le} HCl 0.4 MG Cyclobenzap Cyclobenzap No Cyclobenza rine HCl 10 rine HCl 10 pauline HCl MG MG 10 MG Tadalafil 5 Tadalafil 5 No 1{table QD Tadalafil MG MG t_as_ne 5 MG eded} Gabapentin Gabapentin No 1{capsu QD Gabapentin 400 MG 400 MG le} 400 MG Singulair Singulair No Singulair 10 MG 10 MG 10 MG Fluticasone Fluticasone No 1{spray QD Fluticason Propionate Propionate _in_eac e 50 MCG/ACT 50 MCG/ACT h_nostr Propionate il} 50 MCG/ACT Breo Breo No 1{puff} QD Breo Ellipta Ellipta Ellipta 100-25 100-25 100-25 MCG/INH MCG/INH MCG/INH Metoprolol Metoprolol No Metoprolol Tartrate 25 Tartrate 25 Tartrate MG MG 25 MG metFORMIN metFORMIN No metFORMIN HCl 500 MG HCl 500 MG HCl 500 MG metFORMIN metFORMIN No 1{table BID metFORMIN HCl 500 MG HCl 500 MG t_with_ HCl 500 MG a_meal} Claritin 10 Claritin 10 No 1{table QD Claritin MG MG t} 10 MG Lyrica 75 Lyrica 75 No 1{capsu BID Lyrica 75 MG MG le} MG Tamsulosin Tamsulosin No 1{capsu QD Tamsulosin HCl 0.4 MG HCl 0.4 MG le} HCl 0.4 MG Cyclobenzap Cyclobenzap No Cyclobenza rine HCl 10 rine HCl 10 pauline HCl MG MG 10 MG Tadalafil 5 Tadalafil 5 No 1{table QD Tadalafil MG MG t_as_ne 5 MG eded} Gabapentin Gabapentin No 1{capsu QD Gabapentin 400 MG 400 MG le} 400 MG Singulair Singulair No Singulair 10 MG 10 MG 10 MG Montelukast Montelukast No Montelukas Sodium 10 Sodium 10 t Sodium MG MG 10 MG metFORMIN metFORMIN No 1{table BID metFORMIN HCl 500 MG HCl 500 MG t_with_ HCl 500 MG a_meal} Claritin 10 Claritin 10 No 1{table QD Claritin MG MG t} 10 MG Tamsulosin Tamsulosin No 1{capsu QD Tamsulosin HCl 0.4 MG HCl 0.4 MG le} HCl 0.4 MG Tadalafil 5 Tadalafil 5 No 1{table QD Tadalafil MG MG t_as_ne 5 MG eded} Singulair Singulair No Singulair 10 MG 10 MG 10 MG Lyrica 75 Lyrica 75 No 1{capsu BID Lyrica 75 MG MG le} MG Cyclobenzap Cyclobenzap No Cyclobenza rine HCl 10 rine HCl 10 pauline HCl MG MG 10 MG Metoprolol Metoprolol No 1{table BID Metoprolol Tartrate 25 Tartrate 25 t_with_ Tartrate MG MG food} 25 MG Fluticasone Fluticasone No Fluticason Propionate Propionate e 50 MCG/ACT 50 MCG/ACT Propionate 50 MCG/ACT Gabapentin Gabapentin No 1{capsu QD Gabapentin 400 MG 400 MG le} 400 MG metFORMIN metFORMIN No 1{table BID metFORMIN HCl 500 MG HCl 500 MG t_with_ HCl 500 MG a_meal} Breo Breo No 1{puff} QD Breo Ellipta Ellipta Ellipta 100-25 100-25 100-25 MCG/INH MCG/INH MCG/INH Tadalafil 5 Tadalafil 5 No 1{table QD Tadalafil MG MG t_as_ne 5 MG eded} Metoprolol Metoprolol No 1{table BID Metoprolol Tartrate 25 Tartrate 25 t_with_ Tartrate MG MG food} 25 MG Cyclobenzap Cyclobenzap No Cyclobenza rine HCl 10 rine HCl 10 pauline HCl MG MG 10 MG Singulair Singulair No Singulair 10 MG 10 MG 10 MG Gabapentin Gabapentin No 1{capsu QD Gabapentin 400 MG 400 MG le} 400 MG Lyrica 75 Lyrica 75 No 1{capsu BID Lyrica 75 MG MG le} MG Fluticasone Fluticasone No Fluticason Propionate Propionate e 50 MCG/ACT 50 MCG/ACT Propionate 50 MCG/ACT Tamsulosin Tamsulosin No 1{capsu QD Tamsulosin HCl 0.4 MG HCl 0.4 MG le} HCl 0.4 MG Fluticasone Fluticasone No 1{spray QD Fluticason Propionate Propionate _in_eac e 50 MCG/ACT 50 MCG/ACT h_nostr Propionate il} 50 MCG/ACT Claritin 10 Claritin 10 No 1{table QD Claritin MG MG t} 10 MG Cyclobenzap Cyclobenzap No Cyclobenza rine HCl 10 rine HCl 10 pauline HCl MG MG 10 MG Singulair Singulair No Singulair 10 MG 10 MG 10 MG Tadalafil 5 Tadalafil 5 No 1{table QD Tadalafil MG MG t_as_ne 5 MG eded} Gabapentin Gabapentin No 1{capsu QD Gabapentin 400 MG 400 MG le} 400 MG Fluticasone Fluticasone No Fluticason Propionate Propionate e 50 MCG/ACT 50 MCG/ACT Propionate 50 MCG/ACT Fluticasone Fluticasone No 1{spray QD Fluticason Propionate Propionate _in_eac e 50 MCG/ACT 50 MCG/ACT h_nostr Propionate il} 50 MCG/ACT metFORMIN metFORMIN No 1{table BID metFORMIN HCl 500 MG HCl 500 MG t_with_ HCl 500 MG a_meal} Breo Breo No 1{puff} QD Breo Ellipta Ellipta Ellipta 100-25 100-25 100-25 MCG/INH MCG/INH MCG/INH Claritin 10 Claritin 10 No 1{table QD Claritin MG MG t} 10 MG Tamsulosin Tamsulosin No 1{capsu QD Tamsulosin HCl 0.4 MG HCl 0.4 MG le} HCl 0.4 MG Lyrica 75 Lyrica 75 No 1{capsu BID Lyrica 75 MG MG le} MG Metoprolol Metoprolol No Metoprolol Tartrate 25 Tartrate 25 Tartrate MG MG 25 MG Cyclobenzap Cyclobenzap No Cyclobenza rine HCl 10 rine HCl 10 pauline HCl MG MG 10 MG Singulair Singulair No Singulair 10 MG 10 MG 10 MG Tadalafil 5 Tadalafil 5 No 1{table QD Tadalafil MG MG t_as_ne 5 MG eded} Gabapentin Gabapentin No 1{capsu QD Gabapentin 400 MG 400 MG le} 400 MG Fluticasone Fluticasone No Fluticason Propionate Propionate e 50 MCG/ACT 50 MCG/ACT Propionate 50 MCG/ACT Fluticasone Fluticasone No 1{spray QD Fluticason Propionate Propionate _in_eac e 50 MCG/ACT 50 MCG/ACT h_nostr Propionate il} 50 MCG/ACT metFORMIN metFORMIN No 1{table BID metFORMIN HCl 500 MG HCl 500 MG t_with_ HCl 500 MG a_meal} Breo Breo No 1{puff} QD Breo Ellipta Ellipta Ellipta 100-25 100-25 100-25 MCG/INH MCG/INH MCG/INH Claritin 10 Claritin 10 No 1{table QD Claritin MG MG t} 10 MG Tamsulosin Tamsulosin No 1{capsu QD Tamsulosin HCl 0.4 MG HCl 0.4 MG le} HCl 0.4 MG Lyrica 75 Lyrica 75 No 1{capsu BID Lyrica 75 MG MG le} MG Metoprolol Metoprolol No Metoprolol Tartrate 25 Tartrate 25 Tartrate MG MG 25 MG Lyrica 75 Lyrica 75 No 1{capsu BID Lyrica 75 MG MG le} MG Metoprolol Metoprolol No Metoprolol Tartrate 25 Tartrate 25 Tartrate MG MG 25 MG Singulair Singulair No Singulair 10 MG 10 MG 10 MG Tadalafil 5 Tadalafil 5 No 1{table QD Tadalafil MG MG t_as_ne 5 MG eded} Gabapentin Gabapentin No 1{capsu QD Gabapentin 400 MG 400 MG le} 400 MG Claritin 10 Claritin 10 No 1{table QD Claritin MG MG t} 10 MG Fluticasone Fluticasone No 1{spray QD Fluticason Propionate Propionate _in_eac e 50 MCG/ACT 50 MCG/ACT h_nostr Propionate il} 50 MCG/ACT Fluticasone Fluticasone No Fluticason Propionate Propionate e 50 MCG/ACT 50 MCG/ACT Propionate 50 MCG/ACT Tamsulosin Tamsulosin No 1{capsu QD Tamsulosin HCl 0.4 MG HCl 0.4 MG le} HCl 0.4 MG Cyclobenzap Cyclobenzap No Cyclobenza rine HCl 10 rine HCl 10 pauline HCl MG MG 10 MG Breo Breo No 1{puff} QD Breo Ellipta Ellipta Ellipta 100-25 100-25 100-25 MCG/INH MCG/INH MCG/INH metFORMIN metFORMIN No metFORMIN HCl 500 MG HCl 500 MG HCl 500 MG Metoprolol Metoprolol No 1{table BID Metoprolol Tartrate 25 Tartrate 25 t_with_ Tartrate MG MG food} 25 MG Lyrica 75 Lyrica 75 No 1{capsu BID Lyrica 75 MG MG le} MG Metoprolol Metoprolol No Metoprolol Tartrate 25 Tartrate 25 Tartrate MG MG 25 MG Singulair Singulair No Singulair 10 MG 10 MG 10 MG Tadalafil 5 Tadalafil 5 No 1{table QD Tadalafil MG MG t_as_ne 5 MG eded} Gabapentin Gabapentin No 1{capsu QD Gabapentin 400 MG 400 MG le} 400 MG Claritin 10 Claritin 10 No 1{table QD Claritin MG MG t} 10 MG Fluticasone Fluticasone No 1{spray QD Fluticason Propionate Propionate _in_eac e 50 MCG/ACT 50 MCG/ACT h_nostr Propionate il} 50 MCG/ACT Fluticasone Fluticasone No Fluticason Propionate Propionate e 50 MCG/ACT 50 MCG/ACT Propionate 50 MCG/ACT Tamsulosin Tamsulosin No 1{capsu QD Tamsulosin HCl 0.4 MG HCl 0.4 MG le} HCl 0.4 MG Cyclobenzap Cyclobenzap No Cyclobenza rine HCl 10 rine HCl 10 pauline HCl MG MG 10 MG Breo Breo No 1{puff} QD Breo Ellipta Ellipta Ellipta 100-25 100-25 100-25 MCG/INH MCG/INH MCG/INH metFORMIN metFORMIN No metFORMIN HCl 500 MG HCl 500 MG HCl 500 MG Metoprolol Metoprolol No 1{table BID Metoprolol Tartrate 25 Tartrate 25 t_with_ Tartrate MG MG food} 25 MG gabapentin gabapentin No 1capsul BID gabapentin [place] [...] route. tadalafil tadalafil No 1 Q1D tadalafil Brigitte 10 mg 10 mg 10 mg Family tablet Take tablet Take tablet Practic 1 tablet 1 tablet Take 1 e every day every day tablet by oral by oral every day route. route. by oral route. tamsulosin tamsulosin No 1capsul Q1D tamsulosin [facility] 0.4 mg 0.4 mg e(s) 0.4 mg Family capsule capsule capsule Practi c Take 1 Take 1 Take 1 e capsule capsule capsule every day every day every day by oral by oral by oral route. route. route. Fluticasone Fluticasone Yes Na Dejesus 1 spray in Common Propionate Propionate each [facility]pi rit nostril - [facility] Singulair Singulair Yes Na [place]jesus TAKE 1 [facility] TABLET BY [facility] - [facility] EVERY DAY [facility] Propranolol Propranolol Yes Na Dejesus TAKE 1 [facility] HCl HCl TABLET BY [facility] - [facility] TWICE [facility] Lyrica Lyrica Yes Na Dejesus 1 capsule Com mon [facility] Breo Breo No 1{puff} QD Breo Ellipta Ellipta Ellipta 100-25 100-25 100-25 MCG/INH MCG/INH MCG/INH Singulair Singulair No Singulair 10 MG 10 MG 10 MG Lyrica 75 Lyrica 75 No 1{capsu BID Lyrica 75 MG MG le} MG Tamsulosin Tamsulosin No 1{capsu QD Tamsulosin HCl 0.4 MG HCl 0.4 MG le} HCl 0.4 MG Claritin 10 Claritin 10 No 1{table QD Claritin MG MG t} 10 MG Baclofen 10 Baclofen 10 No 1{table BID Baclofen MG MG t_as_ne 10 MG eded} Fluticasone Fluticasone No 1{spray QD Fluticason Propionate Propionate _in_eac e 50 MCG/ACT 50 MCG/ACT h_nostr Propionate il} 50 MCG/ACT metFORMIN metFORMIN No 1{table BID metFORMIN HCl 500 MG HCl 500 MG t_with_ HCl 500 MG a_meal} Fluticasone Fluticasone No Fluticason Propionate Propionate e 50 MCG/ACT 50 MCG/ACT Propionate 50 MCG/ACT Propranolol Propranolol No Propranolo HCl 40 MG HCl 40 MG l HCl 40 MG Cyclobenzap Cyclobenzap No Cyclobenza rine HCl 10 rine HCl 10 pauline HCl MG MG 10 MG Montelukast Montelukast No Montelukas Sodium 10 Sodium 10 t Sodium MG MG 10 MG Claritin 10 Claritin 10 No 1{table QD Claritin MG MG t} 10 MG Metoprolol Metoprolol No 1{table BID Metoprolol Tartrate 25 Tartrate 25 t_with_ Tartrate MG MG food} 25 MG Gabapentin Gabapentin No 1{capsu QD Gabapentin 400 MG 400 MG le} 400 MG Tadalafil 5 Tadalafil 5 No 1{table QD Tadalafil MG MG t_as_ne 5 MG eded} Loratadine Loratadine No Loratadine 10 MG 10 MG 10 MG Breo Breo No 1{puff} QD Breo Ellipta Ellipta Ellipta 100-25 100-25 100-25 MCG/INH MCG/INH MCG/INH Lyrica 75 Lyrica 75 No 1{capsu BID Lyrica 75 MG MG le} MG Claritin Claritin 2020- No Na Dejesus 1 tablet [facility]12 [facility]00 [facility] Immunizations Ordered Immunization Filled Immunization Date Status Commen ts Source Name Name Pfizer COVID-19 Pfizer COVID-19 2021-03-19 Completed [facility] 11::[facility] Pfizer COVID-19 Pfizer COVID-19 2021-03-19 Completed [facility] Vaccine Vaccine 11:: - [facility] Pfizer COVID-19 Pfizer COVID-19 2021-03-19 Com[facility] Vaccine Vaccine 11:21:00 - [facility] Pfizer COVID-19 Pfizer COVID-19 2021-03-19 Com[facility] Vaccine Vaccine 11:: - [facility] Pfizer COVID-19 Pfizer COVID-19 2021-03-19 Completed [facility] Vaccine Vaccine 11:: - [facility] Pfizer COVID-19 Pfizer COVID-19 2021-03-19 Completed [facility] Vacc[facility] Vaccine 11:: - [facility] Pfizer COVID-19 Pfizer COVID-19 2021-03-19 Completed [facility] Vacc[facility] Vacc[facility] 11:21:00 [facility] Pfizer COVID-19 Pfizer COVID-19 2021-03-19 Completed [facility] Vaccine Vaccine 11:21:00 - [facility] Pfizer COVID-19 Pfizer COVID-19 2021-03-19 Completed [facility] Vaccine Vaccine 11[facility]21:00 [facility] Pfizer COVID-19 Pfizer COVID-19 2021-03-19 Completed [facility] Vaccine Vaccine 11:21:00 - [facility] Pfizer COVID-19 Pfizer COVID-19 2021-03-19 Completed [facility] Vaccine Vaccine 11:21:00 - [facility] Pfizer COVID-19 Pfizer COVID-19 2021-03-19 Completed [facility] Vaccine Vaccine 11:21:00 - [facility] Pfizer COVID-19 Pfizer COVID-19 2021-03-19 Completed [facility] Vaccine Vaccine 11:21:00 - [facility] Pfizer COVID-19 Pfizer COVID-19 2021-03-19 Completed [facility] Vaccine Vaccine 11:21:00 - [facility] Pfizer COVID-19 Pfizer COVID-19 2021-03-19 Completed [facility] Vaccine Vaccine 11:21:00 [facility] Pfizer COVID-19 Pfizer COVID-19 2021-03-19 Completed [facility] Vaccine Vaccine 11:21:00 [facility] Afluria Afluria 2021-03-19 Completed [facility] 10:06:00 [facility] Afluria Afluria 2021-03-19 Completed [facility] 10:06:00 [facility] Afluria Afluria 2021-03-19 Completed [facility] 10:06:00 [facility] Afluria Afluria 2021-03-19 Completed [facility] 10:06:00 [facility] Afluria Afluria 2021-03-19 Completed [facility] 10:06:00 [facility] Afluria Afluria 2021-03-19 Completed [facility] 10:06:00 [facility] Afluria Afluria 2021-03-19 Completed [facility] 10:06:00 [facility] Afluria Afluria 2021-03-19 Completed [facility] 10:06:00 - [facility] Afluria Afluria 2021-03-19 Completed [facility] 10:06:00 [facility] Afluria Afluria 2021-03-19 Completed [facility] 10:06:00 [facility] Afluria Afluria 2021-03-19 Completed [facility] 10:06:00 [facility] Afluria Afluria 2021-03-19 Completed [facility] 10:06:00 - [facility] Afluria Afluria 2021-03-19 Completed [facility] 10:06:00 [facility] Afluria Afluria 2021-03-19 Completed [facility] 10:06:00 [facility] Afluria Afluria 2021-03-19 Completed [facility] 10:06:00 [facility] Afluria Afluria 2021-03-19 Completed [facility] 10:06:00 [facility] Afluria Afluria 2021-03-19 Completed [facility] 10:06:00 [facility] Afluria Afluria 2021-03-19 Completed [facility] 10:06:00 [facility] Afluria Afluria 2021-03-19 Completed [facility] 10:06:00 [facility] Afluria Afluria 2021-03-19 Completed [facility] 10:06:00 [facility] Afluria Afluria 2021-03-19 Completed [facility] 10:06:00 [facility] Afluria Afluria 2021-03-19 Completed [facility] 10:06:00 [facility] Afluria Afluria 2021-03-19 Completed [facility] 10:06:00 [facility] Pfizer COVID-19 Pfizer COVID-19 2020-09-11 Completed [facility] Vaccine Vaccine 08:50:00 [facility] Pfizer COVID-19 Pfizer COVID-19 2020-09-11 Completed [facility] Vaccine Vaccine 08:50:00 [facility] Pfizer COVID-19 Pfizer COVID-19 2020-09-11 Completed [facility] Vaccine Vaccine 08:50:00 [facility] Pfizer COVID-19 Pfizer COVID-19 2020-09-11 Completed [facility] Vaccine Vaccine 08:50:00 - [facility] Pfizer COVID-19 Pfizer COVID-19 2020-09-11 Completed [facility] Vaccine Vaccine 08:50:00 [facility] Pfizer COVID-19 Pfizer COVID-19 2020-09-11 Completed [facility] Vaccine Vaccine 08:50:00 [facility] Pfizer COVID-19 Pfizer COVID-19 2020-09-11 Completed [facility] Vaccine Vaccine 08:50:00 - [facility] Pfizer COVID-19 Pfizer COVID-19 2020-09-11 Completed [facility] Vaccine Vaccine 08:50:00 [facility] Pfizer COVID-19 Pfizer COVID-19 2020-09-11 Completed [facility] Vaccine Vaccine 08:50:00 [facility] Pfizer COVID-19 Pfizer COVID-19 2020-09-11 Completed [facility] Vaccine Vaccine 08:50:00 - [facility] Pfizer COVID-19 Pfizer COVID-19 2020-09-11 Completed [facility] Vaccine Vaccine 08:50:00 - [facility] Pfizer COVID-19 Pfizer COVID-19 2020-09-11 Completed [facility] Vaccine Vaccine 08:50:00 [facility] Pfizer COVID-19 Pfizer COVID-19 2020-09-11 Completed [facility] Vaccine Vaccine 08:50:00 [facility] Pfizer COVID-19 Pfizer COVID-19 2020-09-11 Completed [facility] Vaccine Vaccine 08:50:00 [facility] Pfizer COVID-19 Pfizer COVID-19 2020-09-11 Completed [facility] Vaccine Vaccine 08:50:00 [facility] Pfizer COVID-19 Pfizer COVID-19 2020-09-11 Completed [facility] Vaccine Vaccine 08:50:00 [facility] Pfizer COVID-19 Pfizer COVID-19 2020-09-11 Completed [facility] Vaccine Vaccine 08:50:00 [facility] Pfizer COVID-19 Pfizer COVID-19 2020-09-11 Completed [facility] Vaccine Vaccine 08:50:00 [facility] Pfizer COVID-19 Pfizer COVID-19 2020-09-11 Completed [facility] Vaccine Vaccine 08:50:00 [facility] Pfizer COVID-19 Pfizer COVID-19 2020-09-11 Completed [facility] Vaccine Vaccine 08:50:00 [facility] Pfizer COVID-19 Pfizer COVID-19 2020-09-11 Completed [facility] Vaccine Vaccine 08:50:00 [facility] Pfizer COVID-19 Pfizer COVID-19 2020-09-11 Completed [facility] Vaccine Vaccine 08:50:00 [facility] Pfizer COVID-19 Pfizer COVID-19 2020-09-11 Completed [facility] Vaccine Vaccine 08:50:00 [facility] Pfizer COVID-19 Pfizer COVID-19 2020-08-11 Completed [facility] Vaccine Vaccine 08:49:00 [facility] Pfizer COVID-19 Pfizer COVID-19 2020-08-11 Completed [facility] Vaccine Vaccine 08:49:00 [facility] Pfizer COVID-19 Pfizer COVID-19 2020-08-11 Completed [facility] Vaccine Vaccine 08:49:00 [facility] Pfizer COVID-19 Pfizer COVID-19 2020-08-11 Completed [facility] Vaccine Vaccine 08:49:00 [facility] Pfizer COVID-19 Pfizer COVID-19 2020-08-11 Completed [facility] Vaccine Vaccine 08:49:00 [facility] Pfizer COVID-19 Pfizer COVID-19 2020-08-11 Completed [facility] Vaccine Vaccine 08:49:00 [facility] Pfizer COVID-19 Pfizer COVID-19 2020-08-11 Completed [facility] Vaccine Vaccine 08:49:00 [facility] Pfizer COVID-19 Pfizer COVID-19 2020-08-11 Completed [facility] Vaccine Vaccine 08:49:00 [facility] Pfizer COVID-19 Pfizer COVID-19 2020-08-11 Completed [facility] Vaccine Vaccine 08:49:00 [facility] Pfizer COVID-19 Pfizer COVID-19 2020-08-11 Completed [facility] Vaccine Vaccine 08:49:00 - [facility] Pfizer COVID-19 Pfizer COVID-19 2020-08-11 Completed [facility] Vaccine Vaccine 08:49:00 [facility] Pfizer COVID-19 Pfizer COVID-19 2020-08-11 Completed [facility] Vaccine Vaccine 08:49:00 [facility] Pfizer COVID-19 Pfizer COVID-19 2020-08-11 Completed [facility] Vaccine Vaccine 08:49:00 [facility] Pfizer COVID-19 Pfizer COVID-19 2020-08-11 Completed [facility] Vaccine Vaccine 08:49:00 [facility] Pfizer COVID-19 Pfizer COVID-19 2020-08-11 Completed [facility] Vaccine Vaccine 08:49:00 [facility] Pfizer COVID-19 Pfizer COVID-19 2020-08-11 Completed [facility] Vaccine Vaccine 08:49:[facility] - [facility] Pfizer COVID-19 Pfizer COVID-19 2020-08-11 Completed [facility] Vaccine Vaccine 08:49:00 - [facility] Pfizer COVID-19 Pfizer COVID-19 2020-08-11 Completed [facility] Vaccine Vaccine 08:49:00 [facility] Pfizer COVID-19 Pfizer COVID-19 2020-08-11 Completed [facility] Vaccine Vaccine 08:49:00 [facility] Pfizer COVID-19 Pfizer COVID-19 2020-08-11 Completed [facility] Vaccine Vaccine 08:49:00 [facility] Pfizer COVID-19 Pfizer COVID-19 2020-08-11 Completed [facility] Vaccine Vaccine 08:49:00 [facility] Pfizer COVID-19 Pfizer COVID-19 2020-08-11 Completed [facility] Vaccine Vaccine 08:49:00 [facility] Pfizer COVID-19 Pfizer COVID-19 2020-08-11 Completed [facility] Vaccine Vaccine 08:49:00 [facility] Afluria single dose Afluria single dose 2019-02-15 Completed [facility] 10:49:00 [facility] Afluria single dose Afluria single dose 2019-02-15 Completed [facility] 10[facility]49:[facility] - [facility] Afluria single dose Afluria single dose 2019-02-15 Completed [facility] 10:49:00 [facility] Afluria single dose Afluria single dose 2019-02-15 Completed [facility] 10:49:00 [facility] Afluria single dose Afluria single dose 2019-02-15 Completed [facility] 10:49:[facility] - [facility] Afluria single dose Afluria single dose 2019-02-15 Completed [facility] 10:49:00 - [facility] Afluria single dose Afluria single dose 2019-02-15 Completed [facility] 10:49:[facility] - [facility] Afluria single dose Afluria single dose 2019-02-15 Completed [facility] 10:49:[facility] - [facility] Afluria single dose Afluria single dose 2019-02-15 Completed [facility] 10:49:[facility] - [facility] Afluria single dose Afluria single dose 2019-02-15 Completed [facility] 10:49:[facility] - [facility] Afluria single dose Afluria single dose 2019-02-15 Completed [facility] 10:49:[facility] - [facility] Afluria single dose Afluria single dose 2019-02-15 Completed [facility] 10:49:[facility] - [facility] Afluria single dose Afluria single dose 2019-02-15 [facility] 10:49:[facility] Afluria single dose Afluria single dose 2019-02-15 Completed [facility]:49:[facility] Afluria single dose Afluria single dose 2019-02-15 Completed [facility] 10:49:00 [facility] Afluria single dose Afluria single dose 2019-02-15 [facility]pleted [facility] 10:49:00 [facility] Afluria single dose Afluria single dose 2019-02-15 [facility]pleted [facility] 10:[facility]:00 [facility] Afluria single dose Afluria single dose 2019-02-15 [facility]pleted [facility] 10:49:00 [facility] Afluria single dose Afluria single dose 2019-02-15 [facility]pleted [facility] 10:49:00 [facility] Afluria single dose Afluria single dose 2019-02-15 Completed [facility]:49:[facility] Afluria single dose Afluria single dose 2019-02-15 Completed [facility]:49:[facility] Afluria single dose Afluria single dose 2019-02-15 Completed [facility]:49:[facility] - [facility] Afluria single dose Afluria single dose 2019-02-15 Completed [facility] 10:49:[facility] Afluria single dose Afluria single dose 2019-02-15 Completed [facility]:00:[facility] - [facility] Vital Signs Vital Name Observation Time Observation Value Comments Source HEIGHT 2022-07-11 05:50:00 190.5 cm WEIGHT 2022-07-11 05:50:00 145.922 kg HEIGHT 2022-06-27 11:30:00 190.5 cm WEIGHT 2022-06-27 11:30:00 145.151 kg HEIGHT 2022-07-11 05:50:00 190.5 cm WEIGHT 2022-07-11 05:50:00 145.922 kg HEIGHT 2022-06-27 11:30:00 190.5 cm WEIGHT 2022-06-27 11:30:00 145.151 kg HEIGHT 2022-07-11 05:50:00 190.5 cm WEIGHT 2022-07-11 05:50:00 145.922 kg HEIGHT 2022-06-27 11:30:00 190.5 cm WEIGHT 2022-06-27 11:30:00 145.151 kg HEIGHT 2022-07-05 13:08:00 190.5 cm WEIGHT 2022-07-05 13:08:00 145.831 kg HEIGHT 2022-07-05 13:08:00 190.5 cm WEIGHT 2022-07-05 13:08:00 145.831 kg HEIGHT 2022-07-05 13:08:00 190.5 cm WEIGHT 2022-07-05 13:08:00 145.831 kg height 2022-05-09 16:20:00 73.00 [in_i] [facility] weight 2022-05-09 16:20:00 323.2 [lb_av] [facility] temperature 2022-05-09 16:20:00 97.6 [degF] [facility] bmi 2022-05-09 16:20:00 42.64 kg/m2 [facility] oximetry 2022-05-09 16:20:00 95 % [facility] respiratory rate 2022-05-09 16:20:00 16 /min Comm on [facility] blood pressure 2022-05-09 16:20:00 137 mm[Hg] Common [facility] - systolic [facility] blood pressure 2022-05-09 16:20:00 64 mm[Hg] [facility] - diastolic [facility] height 2022-02-06 11:40:00 73.00 [in_i] [facility] weight 2022-02-06 11:40:00 310 [lb_av] [facility] bmi 2022-02-06 11:40:00 40.9 kg/m2 [facility] height 2022-01-08 09:40:00 73.00 [in_i] [facility] weight 2022-01-08 09:40:00 321.4 [lb_av] [facility] temperature 2022-01-08 09:40:00 97.4 [degF] [facility] bmi 2022-01-08 09:40:00 42.40 kg/m2 [facility] oximetry 2022-01-08 09:40:00 95 % [facility] respiratory rate 2022-01-08 09:40:00 16 /min Comm on [facility] blood pressure 2022-01-08 09:40:00 138 mm[Hg] [facility] - systolic [facility] blood pressure 2022-01-08 09:40:00 66 mm[Hg] [facility] diastolic [facility] Systolic blood 2021-09-24 13:22:00 131 mm[Hg] [facility] Diastolic blood 2021-09-24 13:22:00 87 mm[Hg] Unive rsity of pressure [facility] Heart rate 2021-09-24 13:22:00 84 /min [facility] Respiratory rate 2021-09-24 13:22:00 18 /min [facility] Body height 2021-09-24 13:22:00 193 cm [facility] Body weight 2021-09-24 13:22:00 144.425 kg [facility] BMI 2021-09-24 13:22:00 38.76 kg/m2 Universi [facility] Oxygen saturation in 2021-09-24 13:22:00 95 /min [facility] Arterial blood by [facility] Pulse oximetry Branch height 2021-08-16 11:40:00 73.00 [in_i] [facility] weight 2021-08-16 11:40:00 314.0 [lb_av] [facility] temperature 2021-08-16 11:40:00 97.6 [degF] [facility] bmi 2021-08-16 11:40:00 41.42 kg/m2 [facility] oximetry 2021-08-16 11:40:00 95 % [facility] respiratory rate 2021-08-16 11:40:00 15 /min Comm on [facility] blood pressure 2021-08-16 11:40:00 129 mm[Hg] [facility] - systolic [facility] blood pressure 2021-08-16 11:40:00 83 mm[Hg] [facility] - diastolic [facility] height 2021-07-23 08:00:00 73.00 [in_i] [facility] weight 2021-07-23 08:00:00 327.2 [lb_av] [facility] temperature 2021-07-23 08:00:00 98.0 [degF] [facility] bmi 2021-07-23 08:00:00 43.16 kg/m2 [facility] oximetry 2021-07-23 08:00:00 96 % [facility] respiratory rate 2021-07-23 08:00:00 16 /min Comm on [facility] blood pressure 2021-07-23 08:00:00 122 mm[Hg] [facility] - systolic [facility] blood pressure 2021-07-23 08:00:00 68 mm[Hg] [facility] - diastolic [facility] height 2021-06-28 11:20:00 73.00 [in_i] Common [facility] weight 2021-06-28 11:20:00 321 [lb_av] [facility] temperature 2021-06-28 11:20:00 97.1 [degF] [facility] bmi 2021-06-28 11:20:00 42.35 kg/m2 [facility] oximetry 2021-06-28 11:20:00 93 % [facility] respiratory rate 2021-06-28 11:20:00 17 /min Comm on [facility] blood pressure 2021-06-28 11:20:00 124 mm[Hg] [facility] - systolic [facility] blood pressure 2021-06-28 11:20:00 80 mm[Hg] [facility] - diastolic [facility] height 2021-05-22 08:00:00 73.00 [in_i] [facility] weight 2021-05-22 08:00:00 313.4 [lb_av] [facility] temperature 2021-05-22 08:00:00 97.3 [degF] [facility] bmi 2021-05-22 08:00:00 41.34 kg/m2 [facility] oximetry 2021-05-22 08:00:00 91 % Common [facility] blood pressure 2021-05-22 08:00:00 136 mm[Hg] [facility] blood pressure 2021-05-22 08:00:00 82 mm[Hg] [facility] - diastolic [facility] height 2021-03-19 08:40:00 73.00 [in_i] Common [facility] weight 2021-03-19 08:40:00 313.4 [lb_av] [facility] - [facility] temperature 2021-03-19 08:40:00 97.0 [degF] Common [facility] bmi 2021-03-19 08:40:00 41.34 kg/m2 [facility] oximetry 2021-03-19 08:40:00 96 % Common [facility] respiratory rate 2021-03-19 08:40:00 18 /min [facility] blood pressure 2021-03-19 08:40:00 132 mm[Hg] [facility] - systolic [facility] blood pressure 2021-03-19 08:40:00 80 mm[Hg] [facility] - diastolic [facility] Body height 2021-02-28 18:54:00 193 cm [facility] Body weight 2021-02-28 18:54:00 138.347 kg [facility] BMI 2021-02-28 18:54:00 37.13 kg/m2 [facility] Height 2019-12-21 00:00:00 76 [in_i] [facility] Height 2019-11-10 00:00:00 76 [in_i] [facility] BMI (Body Mass 2019-11-10 00:00:00 36.5 kg/m2 [facility] Body Weight 2019-11-10 00:00:00 300 [lb_av] [facility] Heart rate 2022-07-16 11:39:40 62 /min [facility] Respiratory rate 2022-07-16 11:39:40 20 /min [facility] Oxygen saturation in 2022-07-16 11:39:40 94 /min [facility] Arterial blood by Medical Ce nter Pulse oximetry Body temperature 2022-07-16 11:39:[address] [facility] Systolic blood 2022-07-16 11:38:45 141 mm[Hg] [facility] Diastolic blood 2022-07-16 11:38:45 93 mm[Hg] [facility] Heart rate 2022-07-11 15:42:56 85 /min [facility] Respiratory rate 2022-07-11 15:42:56 18 /min [facility] Oxygen saturation in 2022-07-11 15:42:56 94 /min [facility] Arterial blood by Medical Ce [facility]ter Pulse oximetry Body temperature 2022-07-11 15:42:[address] [facility] Systolic blood 2022-07-11 15:41:30 145 mm[Hg] [facility] Diastolic blood 2022-07-11 15:41:30 88 mm[Hg] [facility] Body height 2022-07-11 05:50:00 190.5 cm [facility] Body weight 2022-07-11 05:50:00 145.922 kg [facility] BMI 2022-07-11 05:50:00 40.21 kg/m2 [facility] Body height 2022-06-27 11:30:00 190.5 cm [facility] Body weight 2022-06-27 11:30:00 145.151 kg [facility] BMI 2022-06-27 11:30:00 40.00 kg/m2 [facility] Systolic (mm Hg) 2021-10-23 14:15:00 Taj cade [facility] Diastolic (mm Hg) 2021-10-23 14:15:00 [facility] [place] Heart Rate 2021-10-23 14[facility]15:00 [facility] 2021-10-23 [facility] 2021-10-23 14:15:00 187.96 cm [facility] Weight 2021-10-23 14:15:00 [facility] BMI Calculated 2021-10-23 14:15:00 Memori [facility] Systolic (mm Hg) 2021-03-16 14:59:00 Taj rial [place] Diastolic (mm Hg) 2021-03-16 14:59:00 Mem [facility] Heart Rate 2021-03-16 14:59:00 [facility] [place] Respitory Rate 2021-03-16 14:59:00 [facility] [place] Height 2021-03-16 14:59:00 193.04 cm [facility] Weight 2021-03-16 14:59:00 [facility] [place] BMI Calculated 2021-03-16 14:59:00 [facility] [place] Systolic (mm Hg) 2020-06-06 15:05:00 Taj rial [facility] Diastolic (mm Hg) 2020-06-06 15:05:00 Mem [facility] [place] Heart Rate 2020-06-06 15:05:00 [facility] Respitory Rate 2020-06-06 15:05:00 [facility] [place] Height 2020-06-06 15:05:00 190.5 cm [facility] [place] Weight 2020-06-06 15:05:00 [facility] BMI Calculated 2020-06-06 15:05:00 [facility] [place] Systolic (mm Hg) 2020-05-10 15:00:00 Taj rial [facility] Diastolic (mm Hg) 2020-05-10 15:00:00 Mem [facility] Heart Rate 2020-05-10 15:00:00 [facility] Respitory Rate 2020-05-10 15:00:00 [facility] [place] Height 2020-05-10 15:00:00 185.42 cm [facility] Weight 2020-05-10 15:00:00 [facility] [place] BMI Calculated 2020-05-10 15:00:00 [facility] [place] Systolic (mm Hg) 2020-02-04 14:16:00 Taj [facility] [place] Diastolic (mm Hg) 2020-02-04 14:16:00 Mem [facility] Heart Rate 2020-02-04 14:16:00 [facility] [place] Respitory Rate 2020-02-04 14:16:00 [facility] [place] Height 2020-02-04 14:16:00 187.96 cm [facility] [place] Weight 2020-02-04 14:16:00 [facility] BMI Calculated 2020-02-04 14:16:00 [facility] [place] Systolic (mm Hg) 2019-08-06 14:55:00 Taj rial [facility] Diastolic (mm Hg) 2019-08-06 14:55:00 Mem [facility] Heart Rate 2019-08-06 14:55:00 [facility] [place] Respitory Rate 2019-08-06 14:55:00 [facility] [place] Height 2019-08-06 14:55:00 190.5 cm [facility] Weight 2019-08-06 14:55:00 [facility] BMI Calculated 2019-08-06 14:55:00 [facility] Systolic (mm Hg) 2019-05-03 15:05:00 Taj [facility] [place] Diastolic (mm Hg) 2019-05-03 15:05:00 Mem o[facility] [place] Heart Rate 2019-05-03 15:05:00 [facility] [place] Respitory Rate 2019-05-03 15:05:00 Mem[facility] [place] Height 2019-05-03 15:05:00 190.5 cm [facility] Weight 2019-05-03 15:05:00 [facility] [place] BMI Calculated 2019-05-03 15:05:00 [facility] [place] Respitory Rate 2019-03-19 14:28:00 [facility] [place] Height 2019-03-19 14:28:00 190.5 cm [facility] Weight 2019-03-19 14:28:00 [facility] [place] BMI Calculated 2019-03-19 14:28:00 [facility] [place] Systolic (mm Hg) 2019-03-19 14:28:00 Taj [facility] [place] Diastolic (mm Hg) 2019-03-19 14:28:00 Mem o[facility] [place] Heart Rate 2019-03-19 14:28:00 [facility] [place] BMI Calculated 2018-03-20 14:54:00 Mem[facility] [place] Height 2018-03-20 14:54:00 190.5 cm [facility] [place] Weight 2018-03-20 14:54:00 [facility] Respitory Rate 2018-03-20 14:54:00 [facility] Heart Rate 2018-03-20 14:54:00 [facility] [place] Systolic (mm Hg) 2018-03-20 14:54:00 Taj rial [facility] Diastolic (mm Hg) 2018-03-20 14:54:00 Mem o[facility] [place] Procedures Procedure Date / Time Performing Clinician Source Performed POCT-GLUCOSE METER 2022-07-16 11:38:00 Manda Howell [facility] Chad Kaur R Center POCT-GLUCOSE METER 2022-07-16 06:39:00 Manda Howell [facility] Chad Kaur R Center POCT-GLUCOSE METER 2022-07-15 21:48:00 Manda Howell [facility] Chad Kaur R Center POCT-GLUCOSE METER 2022-07-15 17:45:00 Manda Howell [facility] Chad Kaur R Center POCT-GLUCOSE METER 2022-07-15 11:44:00 Manda Howell [facility] Chad Kaur R Center POCT-GLUCOSE METER 2022-07-15 06:27:00 Manda Howell [facility] Chad Kaur R Center POCT-GLUCOSE METER 2022-07-14 21:25:00 Manda Howell [facility] Chad Kaur R Center POCT-GLUCOSE METER 2022-07-14 16:23:00 Manda Howell [facility] Chad Kaur R Center POCT-GLUCOSE METER 2022-07-14 13:41:00 Manda Howell [facility] Chad Kaur R Center POCT-GLUCOSE METER 2022-07-14 06:31:00 Manda Howell [facility] Chad Kaur R Center POCT-GLUCOSE METER 2022 21:47:00 Manda Howell [facility] Chad Kaur R Center POCT-GLUCOSE METER 2022 16:31:00 Manda Howell [facility] Chad Kaur R Center POCT-GLUCOSE METER 2022 11:33:00 Manda Howell [facility] Chad Kaur R Center POCT-GLUCOSE METER 2022 06:24:00 Manda Howell [facility] Chad Kaur R Center POCT-GLUCOSE METER 2022-07-12 22:00:00 Maricevich, Manda [facility] Kaur [facility] POCT-GLUCOSE METER 2022-07-12 15:37:00 Harpreet [facility] Chad Kaur [facility] POCT-GLUCOSE METER 2022-07-12 11:33:00 Devon [facility] Chad Kaur [facility] POCT-GLUCOSE METER 2022-07-12 06:16:00 Harpreet [facility] BASIC METABOLIC PANEL 2022-07-12 03:46:[address] [facility] POCT-GLUCOSE METER 2022-07-11 23:21:00 Harpreet [facility] POCT-GLUCOSE METER 2022-07-11 10:50:00 [facility]reet [facility] 2022-07-11 08:59:[address] [facility] APPLICATION, GRAFT, 2022-07-11 07:30:00 Harpreet [facility] SKIN, SPLIT-THICKNESS, Chad Kaur [facility] TO GENITALIA LIPOSUCTION 2022-07-11 07:30:00 Harpreet [facility] Chad Kaur [facility] CREATION, FLAP, 2022-07-11 07:30:00 Devon [facility] ROTATION Chad Kaur [facility] RESECTION,SCROTUM 2022-07-11 07:30:00 Monico Lamb [facility] APPLICATION, GRAFT, 2022-07-11 07:21:00 Devon [facility] SKIN, SPLIT-THICKNESS, Chad Kaur [facility] TO GENITALIA LIPOSUCTION 2022-07-11 07:21:00 Devon [facility] Vincent [facility] CREATION, FLAP, 2022-07-11 07:21:00 Harpreet [facility] ROTATION Chad Kaur [facility] RESECTION,SCROTUM 2022-07-11 07:21:00 Monico Lamb [facility] POCT-GLUCOSE METER 2022-07-11 06:26:00 PorschejaquanManda wiseman [facility] ECG 12-LEAD 2022-07-05 13:14:50 Unknown, Hl7 [facility] ECG 12-LEAD 2022-07-05 13:14:[address] [facility] ECG 12-LEAD 2022-07-05 13:14:50 Unknown, H[facility] URINE CULTURE 2022-07-05 13:07:00 Adonis [facility] BASIC METABOLIC PANEL 2022-07-05 13:07:00 Eliud Rodriguez [facility] PT/APTT 2022-07-05 13:07:00 Gasquet [facility] CBC W/PLT COUNT & AUTO 2022-07-05 13:07:00 [facility] URINALYSIS W/ 2022-07-05 13:07:00 Gasquet [facility] CBC W/PLT COUNT & AUTO 2022-07-05 13:07:00 [facility] Center POCT URINALYSIS AUTO 2021-09-24 13:30:00 Musa Kebede [facility] Plan of Care Planned Activity Planned Date Details Comments Source Future Scheduled Test 2023-07-[address] [facility] (12+) [code = Tobacco Cessation Counseling and Screening (12+)] Future Scheduled Test 2023-07-[address] [facility] 00:[facility]:00 [facility] (12+) [code = Tobacco Cessation Counseling and Screening (12+)] Future Scheduled Test 2023-07-[address] [facility] 00:[facility]:00 [facility] Scre[facility] (12+) [code = Tobacco Cessation Counseling and Screening (12+)] Future Scheduled Test 2023-07-[address] [facility] 00:[facility]:00 [facility] Scre[facility] (12+) [code = Tobacco Cessation Counseling and Screening (12+)] Future Scheduled Test 2023-06-[address] [facility] 00:00:00 [facility] Scre[facility] (12+) [code = Tobacco Cessation Counseling and Screening (12+)] Future Scheduled Test [address] [facility]00 aneurysm screening Medical C enter (procedure) [code = 278471748] Future Scheduled Test 2022 PNEUMOCOCCAL 65+ [facility] 00:00:00 (1 - PCV) [code = Medical Ce nter PNEUMOCOCCAL 65+ YRS (1 - PCV)] Future Scheduled Test [address] [facility] 00:[facility]:00 aneurysm screening Medical C enter (procedure) [code = 498596942] Future Scheduled Test 2022 PNEUMOCOCCAL 65+ Y[facility] 00:00:00 (1 - PCV) [code = Medical Ce nter PNEUMOCOCCAL 65+ YRS (1 - PCV)] Future Scheduled Test [address] [facility] 00:[facility]:00 aneurysm screening Medical C enter (procedure) [code = [id number]] Future Scheduled Test 2022 PNEUMOCOCCAL 65+ Y[facility] 00:00:00 (1 - PCV) [code = Medical Ce nter PNEUMOCOCCAL 65+ YRS (1 - PCV)] Future Scheduled Test 2022-06-[address] [facility] 00:00:00 (12+) [code = Medical Center DEPRESSION SCREENING (12+)] Future Scheduled Test 2022-06-09 FALLS RISK SCREENING [facility] 00:00:00 [code = FALLS RISK Medical C enter SCREENING] Future Scheduled Test 2022-06-09 Medicare IPPE (WELCOME [facility] 00:00:00 TO MEDICARE) [code = Medical Center Medicare IPPE (WELCOME TO MEDICARE)] Future Scheduled Test 2022-06-[address] [facility] 00:00:00 (12+) [code = Medical Center DEPRESSION SCREENING (12+)] Future Scheduled Test 2022-06-09 Medicare IPPE (WELCOME [facility] 00:00:00 TO MEDICARE) [code = Medical Center Medicare IPPE (WELCOME TO MEDICARE)] Future Scheduled Test 2022-06-[address] [facility] 00:00:00 (12+) [code = Medical Center DEPRESSION SCREENING (12+)] Future Scheduled Test 2022-06-09 FALLS RISK SCREENING [facility] 00:00:00 [code = FALLS RISK Medical C enter SCREENING] Future Scheduled Test 2022-06-09 Medicare IPPE (WELCOME [facility] 00:00:00 TO MEDICARE) [code = Medical Center Medicare IPPE (WELCOME TO MEDICARE)] Future Scheduled Test 2022-06-[address] [facility] 00:00:00 (12+) [code = Medical Center DEPRESSION SCREENING (12+)] Future Scheduled Test 2022-06-09 FALLS RISK SCREENING [facility] 00:00:00 [code = FALLS RISK Medical C enter SCREENING] Future Scheduled Test 2022-06-09 Medicare IPPE (WELCOME [facility] 00:00:00 TO MEDICARE) [code = Medical Center Medicare IPPE (WELCOME TO MEDICARE)] Future Scheduled Test 2022-06-[address] [facility] 00:00:00 (12+) [code = Medical Center DEPRESSION SCREENING (12+)] Future Scheduled Test 2022-06-09 Medicare IPPE (WELCOME [facility] 00:00:00 TO MEDICARE) [code = Medical Center Medicare IPPE (WELCOME TO MEDICARE)] Future Scheduled Test 2022-02-07 INFLUENZA VACCINE (#1) [facility] 00:00:00 [code = INFLUENZA Medical Ce nter VACCINE (#1)] Future Scheduled Test 2022-02-07 INFLUENZA VACCINE (#1) [facility] 00:00:00 [code = INFLUENZA Medical Ce nter VACCINE (#1)] Future Scheduled Test 2022-02-07 INFLUENZA VACCINE (#1) [facility] 00:00:00 [code = INFLUENZA Medical Ce nter VACCINE (#1)] Future Scheduled Test 2022-02-07 INFLUENZA VACCINE (#1) [facility] 00:00:00 [code = INFLUENZA Medical Ce nter VACCINE (#1)] Future Scheduled Test 2022-02-07 INFLUENZA VACCINE (#1) [facility] 00:00:00 [code = INFLUENZA Medical Ce nter VACCINE (#1)] Future Scheduled Test 2021-07-20 COVID-19 VACCINE (4 - [facility] 00:00:00 Booster for Pfizer Medical C enter series) [code = COVID-19 VACCINE (4 - Booster for Pfizer series)] Future Scheduled Test 2021-07-20 COVID-19 VACCINE (4 - [facility] 00:00:00 Booster for Pfizer Medical C enter series) [code = COVID-19 VACCINE (4 - Booster for Pfizer series)] Future Scheduled Test 2021-07-20 COVID-19 VACCINE (4 - [facility] 00:00:00 Booster for Pfizer Medical C enter series) [code = COVID-19 VACCINE (4 - Booster for Pfizer series)] Future Scheduled Test 2021-07-20 COVID-19 VACCINE (4 - [facility] 00:00:00 Booster for Pfizer Medical C enter series) [code = COVID-19 VACCINE (4 - Booster for Pfizer series)] Future Scheduled Test 2007 SHINGLES VACCINES ([address] [facility] 00:00:00 of 2) [code = SHINGLES Medic al Center VACCINES (1 of 2)] Future Scheduled Test 2007 SHINGLES VACCINES ([address] [facility] 00:00:00 of 2) [code = SHINGLES Medic al Center VACCINES (1 of 2)] Future Scheduled Test 2007 SHINGLES VACCINES ([address] [facility] 00:00:00 of 2) [code = SHINGLES Medic al Center VACCINES (1 of 2)] Future Scheduled Test 2007 SHINGLES VACCINES ([address] [facility] 00:00:00 of 2) [code = SHINGLES Medic al Center VACCINES (1 of 2)] Future Scheduled Test 2007 SHINGLES VACCINES ([address] [facility] 00:00:00 of 2) [code = SHINGLES Medic al Center VACCINES (1 of 2)] Future Scheduled Test [address] [facility] 00:00:00 (procedure) [code = [facility] [id number]] Future Scheduled Test [address] [facility] 00:00:00 (procedure) [code = [facility] [id number]] Future Scheduled Test [address] [facility] 00:00:00 (procedure) [code = [facility] [id number]] Future Scheduled Test [address] [facility] 00:00:00 (procedure) [code = Medical Center [id number]] Future Scheduled Test [address] [facility] 00:00:00 (procedure) [code = Medical Center [id number]] Future Scheduled Test 1976 DTAP/TDAP/TD VACCINES [facility] 00:00:00 (1 - Tdap) [code = Medical C enter DTAP/TDAP/TD VACCINES (1 - Tdap)] Future Scheduled Test 1976 DTAP/TDAP/TD VACCINES [facility] 00:00:00 (1 - Tdap) [code = Medical C enter DTAP/TDAP/TD VACCINES (1 - Tdap)] Future Scheduled Test 1976 DTAP/TDAP/TD VACCINES [facility] 00:00:00 (1 - Tdap) [code = Medical C enter DTAP/TDAP/TD VACCINES (1 - Tdap)] Future Scheduled Test 1976 DTAP/TDAP/TD VACCINES [facility] 00:00:00 (1 - Tdap) [code = Medical C enter DTAP/TDAP/TD VACCINES (1 - Tdap)] Future Scheduled Test 1976 DTAP/TDAP/TD VACCINES [facility] 00:00:00 (1 - Tdap) [code = Medical C enter DTAP/TDAP/TD VACCINES (1 - Tdap)] Future Scheduled Test 1975 HEPATITIS [address] SCREENING [facility] 00:00:00 [code = HEPATITIS C [facility] SCREENING] Future Scheduled Test 1975 HEPATITIS [address] [facility]CREENING [facility] 00:00:00 [code = HEPATITIS C Medical Center SCREENING] Future Scheduled Test 1975 HEPATITIS C SCREENING [facility] 00:00:00 [code = HEPATITIS C Medical Center SCREENING] Future Scheduled Test 1975 HEPATITIS C SCREENING [facility] 00:00:00 [code = HEPATITIS C Medical Center SCREENING] Future Scheduled Test 1975 HEPATITIS C SCREENING [facility] 00:00:00 [code = HEPATITIS C Medical Center SCREENING] Future Scheduled Test 1958-01-10 COVID-19 VACCINE (#1) [facility] 00:00:00 [code = COVID-[address] VACCINE (#1)] Future Scheduled Test [address] [facility] 00:00:00 (combo) [code = CT Medical C enter Colonography (combo)] Future Scheduled Test 1957 [facility] ne[facility] colon (procedure) [code = 358180195] Future Scheduled Test 1957 [facility] colon (procedure) [code = 441215192] Future Scheduled Test 1957 [facility] colon (procedure) [code = 895104460] Future Scheduled Test 1957 [facility] for [facility] colon (procedure) [code = 346002782] Future Scheduled Test 1957 Sigmoidoscopy [code = [facility] 00:00:00 Sigmoidoscopy] Medical Erik r Future Scheduled Test 1957 Scre[facility] for [facility]:00 [facility] colon (procedure) [code = 008750719] Future Scheduled Test 1957 [facility] for [facility]00 [facility] colon (procedure) [code = 420108264] Future Scheduled Test 1957 [facility] for [facility] colon (procedure) [code = 911227240] Future Scheduled Test 1957 [facility] for [facility] colon (procedure) [code = 132020002] Future Scheduled Test 1957 Sigmoidoscopy [code = [facility] 00:00:00 S[facility]oscopy] [facility] [address] [facility] 00:00:00 (combo) [code = CT Medical C enter Colonography (combo)] Future Scheduled Test 1957 [facility] malignant [facility] colon (procedure) [code = 762215723] Future Scheduled Test 1957 [facility] for [facility] colon (procedure) [code = 819592524] Future Scheduled Test 1957 [facility] colon (procedure) [code = 923258458] Future Scheduled Test 1957 [facility] malignant [facility] colon (procedure) [code = 100085165] Future Scheduled Test 1957 Sigmoidoscopy [code = [facility] 00:00:00 Sigmoidoscopy] [facility] [address] [facility] 00:00:00 (combo) [code = CT Medical C enter Colonography (combo)] Future Scheduled Test 1957 [facility] malignant [facility] colon (procedure) [code = 164504728] Future Scheduled Test 1957 [facility] for [facility] malignant ne[facility] colon (procedure) [code = 501756618] Future Scheduled Test 1957 [facility] for [facility] malignant [facility] colon (procedure) [code = 803902668] Future Scheduled Test 1957 [facility] malignant [facility] colon (procedure) [code = 223755612] Future Scheduled Test 1957 Sigmoidoscopy [code = [facility] 00:00:00 Sigmoidoscopy] [facility] [address] [facility] 00:00:00 (combo) [code = CT Medical C enter Colonography (combo)] Future Scheduled Test 1957 [facility] colon (procedure) [code = 662598010] Future Scheduled Test 1957 [facility] for [facility] malignant [facility] colon (procedure) [code = 628958215] Future Scheduled Test 1957 [facility] malignant [facility] colon (procedure) [code = 056037696] Future Scheduled Test 1957 Screening for [facility] 00:00:00 malignant neoplasm of [facility] colon (procedure) [code = 408153471] Future Scheduled Test 1957 Sigmoidoscopy [code = [facility] 00:00:00 Sigmoidoscopy] Medical Erik lares Future Scheduled Test [address] [facility] 00:00:00 (combo) [code = CT Medical C enter Colonography (combo)] [place] Encounters Start End Encounter Admission Attending Care Care Encounter Source Date/Time Date/Time Type Type Clinicians Facility Department ID 2022-07-31 Outpatient [facility] [id number] [place] 13:27:09 [id number] [facility] 2022-05-22 Outpatient Leiva, STLMLC STLMLC [id number] Common 15:30:00 Vicky [facility] 2022-05-08 Outpatient Dejesus, Na STLMLC STLMLC [id number] 2 Common 11:28:00 [facility] 2022-02-04 Outpatient Dejesus, Na STLMLC STLMLC [id number] 2 Common 08:47:00 [facility] 2021-10-18 Outpatient Dejesus, Na STLMLC STLMLC [id number] Common 10:58:01 [facility] 2021-08-14 Outpatient Dejesus, Na STLMLC STLMLC [id number] 2 Common 11:21:01 [facility] 2021-07-23 Outpatient Dejesus, Na STLMLC STLMLC [id number] Common 08:04:00 [facility] 2021-07-19 Outpatient Dejesus, Na STLMLC STLMLC [id number] 2 Common 14:10:00 [facility] 2021-07-05 Outpatient Dejesus, Na STLMLC STLMLC [id number] 2 Common 13:39:01 [facility] 2021-07-04 Outpatient Dejesus, Na STLMLC STLMLC [id number] 2 Common 14:39:57 [facility] 2021-07-04 Outpatient Dejesus, Na STLMLC STLMLC [id number] 2 Common 13:33:38 [id number] [facility] 2021-07-04 Outpatient Dejesus, Na STLMLC STLMLC [id number] 2 Common 12:38:19 [id number] [facility] 2021-07-04 Outpatient Dejesus, Na STLMLC STLMLC [id number] 2 Common 12:36:51 [id number] [facility] 2021-07-04 Outpatient Dejesus, Na STLMLC STLMLC [id number] Common 12:36:06 [id number] [facility] 2021-07-04 Outpatient Dejesus, Na STLMLC STLMLC [id number] 2 Common 12:24:12 [id number] [facility] 2021-07-04 Outpatient Dejesus, Na STLMLC STLMLC [id number] 2 Common 11:58:27 [id number] [facility] 2021-07-04 Outpatient Dejesus, Na STLMLC STLMLC [id number] 2 Common 11:57:54 [id number] [facility] 2021-07-04 Outpatient Dejesus, Na STLMLC STLMLC [id number] 2 Common 11:32:43 [id number] [facility] 2021-07-04 Outpatient Dejesus, Na STLMLC STLMLC [id number] 2 Common 11:13:46 [id number] [facility] 2021-07-04 Outpatient Dejesus, Na STLMLC STLMLC [id number] 2 Common 10:58:31 [id number] [facility] 2022-09-04 2022-09-04 Outpatient MHIE CHERYL [id number] Memoria 13:00:00 13:00:00 17 gricelda Melgoza 2022-07-11 2022-07-16 [facility] [id number] 05:15:00 14:33:00 Lou Bonilla [facility] 2022-07-11 2022-07-16 [facility] [id number] SLE 05:15:00 14:33:00 MANDA 2022-07-11 2022-07-16 [facility] [id number] [id number] 05:15:00 14:33:[address] [facility] 2022-07-11 2022-07-11 [facility] [id number] 07:30:00 10:58:[address] [facility] 2022-07-11 2022-07-11 [facility] [id number] 07:30:00 10:58:[address] [facility] 2022-07-11 2022-07-11 Anesthesia [facility], [facility] [id number] 07:37:00 10:46:00 Event [facility] 2022-07-11 2022-07-11 Anesthesia [facility], [facility] [id number] 07:37:00 10:46:00 Event [facility] 2022-07-11 2022-07-11 Travel [facility] [id number] [facility] 00:[facility] 00:00:00 [facility] 2022-07-11 2022-07-11 Travel [facility] [id number] [facility] 00:[facility]00 00:00:00 [facility] 2022-07-05 2022-07-05 [facility] [id number] 12:59:07 23:59:00 Encounter M[address] Bonilla Pedro [facility] 2022-07-05 2022-07-05 [facility] [id number] [id number] 12:59:07 23:59:00 Encounter Manda Bonilla Pedro [facility] 2022-07-05 2022-07-05 [facility] [id number] [facility] 12:59:07 23:59:00 MANDA 2022-07-05 2022-07-05 Outpatient EL SLE SLE [id number] [facility] 12:58:32 12:58:32 2022-07-05 2022-07-05 Outpatient SCOTT PRINCE [facility] [id number] [facility] 12:58:04 12:58:00 MANDA 2022-07-05 2022-07-05 [facility] [id number] 12:30:00 12:58:00 Encounter Manda Bonilla [facility] 2022-07-05 2022-07-05 [facility] [id number] [id number] 12:30:00 12:58:00 Encounter Manda Bonilla [facility] 2022-07-04 2022-07-04 [facility] [id number] Co mmon 00:00:00 00:00:00 Spirit - [facility] 2022-07-03 2022-07-[address] [facility] [id number] 00:00:00 00:00:00 Only [facility] 2022-07-03 2022-07-[address] [facility] [id number] 00:00:00 00:00:00 Only [facility] 2022-06-27 2022-06-27 Outpatient RONAL PRINCE SLE [id number] [facility] 00:00:00 00:00:00 MANDA 2022-06-27 2022-06-27 Travel [facility] [id number] [facility] 00:00:00 00:00:00 [facility] 2022-06-27 2022-06-27 Travel [facility] [id number] [facility] 00:[facility]00 00:00:00 [facility] 2022-05-09 2022-05-09 [facility] [id number] Co mmon 00:00:00 00:00:00 VISIT EST Spir it PT LEVEL 3 - [facility] 2022-04-25 2022-04-25 Ambulatory MHIE MNA [id number] Memoria 15:45:00 15:45:00 Pre-Reg Neurology 16 gricelda Melgoza 2022-04-25 2022-04-25 Ambulatory MHIE MNA [id number] Memoria 15:45:00 15:45:00 Pre-Reg Neurology 16 gricelda Melgoza 2022-04-25 2022-04-25 Outpatient MHIE MHIE [id number] Memoria 09:45:00 09:45:00 16 gricelda Melgoza 2022-04-25 2022-04-25 Outpatient Mathew, MHMISCHER MHMISCHER [id number] 09:45:00 09:45:00 Austen 16 Gideon 2022-04-23 2022-04-23 Ambulatory MHIE MNA [id number] Memoria 15:15:00 15:15:00 Pre-Reg Neurology 15 gricelda Roqueann 2022-04-23 2022-04-23 Ambulatory MHIE MNA [id number] Memoria 15:15:00 15:15:00 Pre-Reg Neurology 15 gricelda Melgoza 2022-04-23 2022-04-23 Outpatient MHIE MHIE [id number] Memoria 09:15:00 09:15:00 15 gricelda Melgoza 2022-04-23 2022-04-23 [facility] [id number] 09:15:00 09:15:00 Austen 15 Gideon 2022-03-13 2022-03-13 (TEL) STLMLC STLMLC [id number] Co mmon 00:00:00 00:00:00 [facility] 2022-02-20 2022-02-20 (TEL) STLMLC STLMLC [id number] Co mmon 00:00:00 00:00:00 [facility] 2022-02-06 2022-02-06 OL DIG E/M STLMLC STLMLC [id number] Common 00:00:00 00:00:00 [facility] 11-20 Spir it [facility] 2022-01-08 2022-01-08 OFFICE STLC STLC [id number] Co mmon 00:00:00 00:00:00 VISIT EST Spir it PT LEVEL 3 - [facility] 2021-10-23 2021-10-24 Outpatient nullFlavo MNA [id number] Memoria 14:30:00 04:59:59 r Neurology 14 l Delmy Melgoza 2021-10-23 2021-10-24 Outpatient nullFlavo MNA [id number] Memoria 14:30:00 04:59:59 r Neurology 14 l Delmy Melgoza 2021-10-23 2021-10-23 Outpatient Mathew [facility] [id number] 09:30:00 23:59:59 Austen 14 Gideon 2021-10-23 2021-10-23 [id number] 09[facility]30[facility]00 14 gr[place]elda [place] 2021-09-24 2021-09-24 [facility] [id number] Univers 08:30:00 08:40:52 MUSA ity [facility] 2021-09-24 2021-09-24 [facility] [place] 1.2.840.114 [id number] Univers 08:30:00 08:40:52 Visit Musa LEE 350.1.13.10 i ty [facility] [id number] Marguerite dennis PROFESSIO [phone] [place] dical [address] 2021-09-24 2021-09-24 [facility] [id number] Univers 08:30:00 08:40:52 MUSA ity [facility] 2021-09-24 2021-09-24 Outpatient R [facility] [id number] Univers 08:30:00 08:30:00 MUSA ity [facility] 2021-09-24 2021-09-24 (TEL) STLMLC STLMLC [id number] Co mmon 00:00:00 00:00:00 Spirit [facility] 2021-09-18 2021-09-18 Orders Doctor KLINE 1.2.840.114 [id number] Univers 00:00:00 00:00:00 Only Unassigned, MARTY 350.1.13.10 ity of [facility] 4.2.7.2.686 Pramod as [phone] [address] 2021-09-18 2021-09-18 [facility] 1.2.840.114 [id number] Univers 00:00:00 00:00:00 Musaian LEE 350.1.13.10 i ty [facility] [id number] [phone] [place] dic[address] 2021-09-14 2021-09-14 Ambulatory nullFlavo MNA [id number] Memoria 15:30:00 15:30:00 Pre-Reg r Neurology 13 l Delmy [place] 2021-09-14 2021-09-14 Ambulatory nullFlavo MNA [id number] Memoria 15:30:00 15:30:00 Pre-Reg r Neurology 13 l Delmy [place] 2021-09-14 2021-09-14 Outpatient MHIE MHIE [id number] [facility] 10:30:00 10:30:00 13 l [place] 2021-09-14 2021-09-14 Outpatient Mathew, MHMISCHER MHMISCHER [id number] 10:30:00 10:30:00 Austen Andres Meneses 2021-09-10 2021-09-10 Outpatient R FATMATA [facility] [id number] [facility] 09:15:00 10:48:05 [facility] 2021-09-10 2021-09-10 Office Fatmata [facility] 1.2.840.114 [id number] Univers 09:15:00 10:48:05 Visit Rm, Adc Surg Spec Procedure [place] 3 50.1.13.10 ity [facility] [place] [phone] [place] dic[address] 2021-09-10 2021-09-10 Orders Doctor KLINE 1.2.840.114 [id number] Univers 00:00:00 00:00:00 Only Unassigned, MARTY 350.1.13.10 ity of [facility] 4.2.7.2.686 Pramod as [phone] [address] 2021-09-04 2021-09-04 Telephone Fatmata [facility] 1.2.840.114 [id number] Univers 00:00:00 00:00:00 Musa LEE 350.1.13.10 i ty [facility] [id number] [phone] [address] 2021-08-31 2021-08-31 Nurse Nurse, Adc Surgery [facility] 1.2. 840.114 [id number] Univers 13:00:00 13:15:00 Visit Musa Kebede 350.1.13.10 ity [facility] [id number] [phone] [address] 2021-08-31 2021-08-31 Outpatient R [facility] [id number] Univers 13:00:00 13:00:00 [facility] 2021-08-31 2021-08-31 [facility] [id number] Univers 13:00:00 13:00:00 [facility] 2021-08-28 2021-08-28 (TEL) STLMLC STLMLC [id number] Co mmon 00:00:00 00:00:00 [facility] 2021-08-24 2021-08-24 (TEL) STLMLC STLMLC [id number] Co mmon 00:00:00 00:00:00 Spirit - [facility] 2021-08-16 2021-08-16 OFFICE STLMLC STLMLC [id number] Co mmon 00:00:00 00:00:00 VISIT [facility] PT - CHI LEVEL 4 [facility] 2021-08-08 2021-08-08 (TEL) STLMLC STLMLC [id number] Co mmon 00:00:00 00:00:00 [facility] 2021-08-06 2021-08-06 Outpatient R [facility] [id number] Univers 00:00:00 00:00:00 [facility] 2021-07-30 2021-07-30 Grain Manager 2, Adc Lab [facility] 1.2.840.114 [id number] Univers 11:15:00 11:30:00 Visit Fatmata Musaian LEE 350.1.13.10 ity [facility] [id number] [phone] Nj dical NAL [address] [facility] 2021-07-30 2021-07-30 Outpatient [facility] [id number] Univers 11:15:00 11:15:00 [facility] 2021-07-30 2021-07-30 [facility] [place] 1.2.840.114 [id number] Univers 09:30:00 10:42:24 Visit Musa JESUS 350.1.13.10 i ty [facility] [id number] [phone] Nj dical NAL 204 [facility] 2021-07-30 2021-07-30 Outpatient R FATMATA [facility] [id number] Univers 09:30:00 10:42:24 [facility] 2021-07-30 2021-07-30 Orders Doctor ELIUD 1.2.840.114 [id number] Univers 00:00:00 00:00:00 Only Unassigned, MARTY 350.1.13.10 ity of [place] [facility] [id number] Pramod as [phone] [address] 2021-07-23 2021-07-23 OFFICE STLMLC STLMLC [id number] Co mmon 00:00:00 00:00:00 VISIT Spirit ESTAB PT - CHI LEVEL 4 [facility] 2021-07-03 2021-07-03 (TEL) STLMLC STLMLC [id number] Co mmon 00:00:00 00:00:00 Spirit - [facility] 2021-07-03 2021-07-03 (TEL) STLMLC STLMLC [id number] Co mmon 00:00:00 00:00:00 Spirit - [facility] 2021-07-02 2021-07-02 (TEL) STLMLC STLMLC [id number] Co mmon 00:00:00 00:00:00 [facility] 2021-06-28 2021-06-28 OFFICE STLMLC STLMLC [id number] Co mmon 00:00:00 00:00:00 VISIT EST Spir it PT LEVEL 3 - [facility] 2021-06-25 2021-06-25 (TEL) STLMLC STLMLC [id number] Co mmon 00:00:00 00:00:00 [facility] 2021-05-29 2021-05-29 (TEL) STLMLC STLMLC [id number] Co mmon 00:00:00 00:00:00 [facility] 2021-05-25 2021-05-25 (TEL) STLMLC STLMLC [id number] Co mmon 00:00:00 00:00:00 [facility] 2021-05-22 2021-05-22 OFFICE STLMLC STLMLC [id number] Co mmon 00:00:00 00:00:00 VISIT EST Spir it PT LEVEL 3 - [facility] 2021-05-02 2021-05-02 (TEL) STLMLC STLMLC [id number] Co mmon 00:00:00 00:00:00 [facility] 2021-04-21 2021-04-21 (TEL) STLMLC STLMLC [id number] Co mmon 00:00:00 00:00:00 [facility] 2021-03-19 2021-03-19 OFFICE STLMLC STLMLC [id number] Co mmon 00:00:00 00:00:00 VISIT [facility] PT - CHI LEVEL 4 [facility] 2021-03-16 2021-03-17 Outpatient nullFlavo MNA [id number] Memoria 15:45:00 04:59:59 r Neurology 12 l Delmy Melgoza 2021-03-16 2021-03-17 Outpatient nullFlavo MNA [id number] Memoria 15:45:00 04:59:59 r Neurology 12 l Delmy Melgoza 2021-03-16 2021-03-16 Outpatient ZEENAT CarmonaER [id number] 10:45:00 23:59:59 Austen Urszula Meneses 2021-03-16 2021-03-16 Outpatient MHIE MHIE [id number] Memoria 10:45:00 10:45:00 12 gricelda Abad 2021-02-28 2021-02-28 Office ELIJAH Singer 6400 [id number] [id number] [place] 13:30:30 14:55:00 Visit John FREEDMAN 350.1.13.58 [facility] 9.2.7.2.686 [id number] 5 2021-02-06 2021-02-06 Outpatient STLMLC STLMLC [id number] Common 00:00:00 00:00:00 [facility] 2021-01-30 2021-01-30 Outpatient STLMLC STLMLC [id number] Common 00:00:00 00:00:00 [facility] 2021-01-12 2021-01-12 Outpatient STLMLC STLMLC [id number] Common 00:00:00 00:00:00 [facility] 2021-01-10 2021-01-10 Outpatient STLMLC STLMLC [id number] Common 00:00:00 00:00:00 [facility] 2020-12-08 2020-12-08 Outpatient STLMLC STLMLC [id number] Common 00:00:00 00:00:00 [facility] 2020-10-30 2020-10-30 Ambulatory nullFlavo MNA [id number] Memoria 15:30:00 15:30:00 Pre-Reg r Neurology 11 l [place] 2020-10-30 2020-10-30 Ambulatory nullFlavo MNA [id number] Memoria 15:30:00 15:30:00 Pre-Reg r Neurology 11 l Delmy [place] 2020-10-30 2020-10-30 Outpatient MHIE MHIE [id number] Memoria 10:30:00 10:30:00 11 gricelda Abad 2020-10-30 2020-10-30 Outpatient ZEENAT Carmona MISCHJOHNNY [id number] 10:30:00 10:30:00 Austen 11 Gideon 2020-10-13 2020-10-13 Outpatient MHIE MHIE [id number] Memoria 09:15:00 09:15:00 07 grcielda Melgoza 2020-10-13 2020-10-13 Outpatient MHIE MHIE [id number] Memoria 09:15:00 09:15:00 07 gricelda Melgoza 2020-10-12 2020-10-12 Ambulatory nullFlavo MNA [id number] Memoria 15:00:00 15:00:00 Pre-Reg r Neurology 07 l Delmy Melgoza 2020-10-12 2020-10-12 [facility]patient [id number] 10:00:00 10:00:00 Austen 07 Gideon 2020-08-16 2020-08-16 Outpatient STLMLC STLMLC [id number] Common 00:00:00 00:00:00 [facility] 2020-08-11 2020-08-11 Outpatient STLMLC STLMLC [id number] Common 00:00:00 00:00:00 [facility] 2020-08-10 2020-08-10 Outpatient STLMLC STLMLC [id number] Common 00:00:00 00:00:00 [facility] 2020-08-08 2020-08-08 Outpatient STLMLC STLMLC [id number] Common 00:00:00 00:00:00 [facility] 2020-07-27 2020-07-27 Ambulatory nullFlavo MNA [id number] Memoria 15:00:00 15:00:00 Pre-Reg r Neurology 10 l Delmy Roqueann 2020-07-27 2020-07-27 Ambulatory nullFlavo MNA [id number] Memoria 15:00:00 15:00:00 Pre-Reg r Neurology 10 l Delmy Melgoza 2020-07-27 2020-07-27 Outpatient MHIE MHIE [id number] Memoria 09:00:00 09:00:00 10 gricelda Melgoza 2020-07-27 2020-07-27 Outpatient [facility]ENAT [facility] [id number] 09:00:00 09:00:00 Austen Lisa Meneses 2020-07-17 2020-07-17 Outpatient STLMLC STLMLC [id number] Common 00:00:00 00:00:00 [facility] 2020-07-03 2020-07-03 Outpatient STLMLC STLMLC [id number] Common 00:00:00 00:00:00 [facility] 2020-06-06 2020-06-07 Outpatient nullFlavo MNA [id number] Memoria 15:00:00 05:59:59 r Neurology 09 l [place] 2020-06-06 2020-06-07 Outpatient nullFlavo MNA [id number] Memoria 15:00:00 05:59:59 r Neurology 09 l [place] 2020-06-06 2020-06-06 Outpatient Krenava, MHMISCHER MHMISCHER [id number] 09:00:00 23:59:59 Austen 09 [facility] 2020-06-06 2020-06-06 Outpatient MHIE MHIE [id number] Memoria 09:00:00 09:00:00 09 [place] 2020-05-10 2020-05-11 Outpatient nullFlavo MNA [id number] Memoria 15:00:00 05:59:59 r Neurology 08 l [place] [place] 2020-05-10 2020-05-11 Outpatient nullFlavo MNA [id number] Memoria 15:00:00 05:59:59 r Neurology 08 l [place] 2020-05-10 2020-05-10 Outpatient Mathew MHMISCHER MHMISCHER [id number] 09:00:00 23:59:59 [place] 08 [facility] 2020-05-10 2020-05-10 Outpatient MHIE MHIE [id number] Memoria 09:00:00 09:00:00 08 l [place] 2020-04-26 2020-04-26 Outpatient STLMLC STLMLC [id number] Common 00:00:00 00:00:00 [facility] 2020-04-26 2020-04-26 Outpatient STLMLC STLMLC [id number] Common 00:00:00 00:00:00 [facility] 2020-04-03 2020-04-03 Outpatient STLMLC STLMLC [id number] Common 00:00:00 00:00:00 [facility] 2020-02-04 2020-02-05 Outpatient nullFlavo MNA [id number] Memoria 14:00:00 04:59:59 r Neurology 06 l [place] 2020-02-04 2020-02-05 Outpatient nullFlavo MNA [id number] Memoria 14:00:00 04:59:59 r Neurology 06 l Del[place] 2020-02-04 2020-02-04 Outpatient VANIA CarmonaSCHER MISCHER [id number] 09:00:00 23:59:59 Austen Nathanael Meneses 2020-02-04 2020-02-04 Outpatient MHIE MHIE [id number] Memoria 21:00:00 21:00:00 05 gricelda Melgoza 2020-02-04 2020-02-04 Outpatient MHIE MHIE [id number] Memoria 21:00:00 21:00:00 05 gricelda Melgoza 2020-02-04 2020-02-04 Ambulatory nullFlavo MNA [id number] Memoria 14:00:00 14:00:00 Pre-Reg r Neurology 05 l Delmy Melgoza 2020-02-04 2020-02-04 Outpatient MHIE MHIE [id number] Memoria 09:00:00 09:00:00 06 gricelda Melgoza 2020-02-04 2020-02-04 Outpatient ZEENAT Carmona MISCHER [id number] 09:00:00 09:00:00 Austen Sheron Meneses 2020-01-13 2020-01-13 Outpatient Belén-Mbayo VFP VFP [id number] Village 08:54:00 08:54:00 _A_AH 17391 Family Practic e 2020-01-07 2020-01-07 Outpatient Belén-Mbayo VFP VFP [id number] [place] 01:34:00 01:34:00 _A_AH 70361 Family Practic e 2020-01-03 2020-01-03 Out[facility] [id number] Common 09:40:00 09:40:00 [employer] 2019-12-25 2019-12-25 Outpatient Belén-Mbayo VFP VFP [id number] [facility] 04:48:00 04:48:00 _A_AH 31402 Family Practic e 2019-12-21 2019-12-21 Marilin VFP [place] - [id number] V illage 00:00:00 00:00:00 Vianca Mariscal jihan daniels, CHANGE MANAGEMENT LEAD: Medical - Pracriri aguero [address] [email or web address] [facility], [place] [address], [place] [address] , Ph. 2019-12-20 2019-12-20 Outpatient Belén-Mbayo VFP VFP [id number] [facility] 03:45:00 03:45:00 _A_AH 50140 Family Practic e 2019-12-18 2019-12-18 Outpatient Belén-Mbayo VFP VFP [id number] [facility] 02:22:00 02:22:00 _A_AH 41201 Family Practic e 2019-12-15 2019-12-15 Outpatient Belén-Mbayo VFP VFP [id number] [facility] 10:33:00 10:33:00 _A_AH 26798 Family Practic e 2019-12-07 2019-12-07 Out[facility] [id number] Common 15:11:00 15:11:[address] [facility] 2019-11-15 2019-11-15 Outpatient Belén-Mbayo VFP VFP [id number] [facility] 11:23:00 11:23:00 _A_AH 43471 Family Practic e 2019-11-15 2019-11-15 Outpatient Belén-Mbayo VFP VFP [id number] [facility] 11:23:00 11:23:00 _A_AH 68293 Family Practic e 2019-11-10 2019-11-10 Marilin VFP [place] - [id number] V illage 00:00:00 00:00:00 Vianca Briggs Davey daniels, CHANGE MANAGEMENT LEAD: Herson aguero [address] [email or web address] [facility], [place] [address], [place] [address] , Ph. 2019-10-04 2019-10-04 [facility] [id number] Common 09:20:00 09:20:[address] [facility] 2019-08-23 2019-08-23 [facility] [id number] Common 09:40:00 09:40:[address] [facility] 2019-08-06 2019-08-07 Outpatient nullFlavo MNA [id number] Memoria 15:15:00 05:59:59 r Neurology 04 l Delmy Melgoza 2019-08-06 2019-08-07 Outpatient nullFlavo MNA [id number] Mem[place] 15:15:00 05:59:59 r Neurology 04 l Delmy Melgoza 2019-08-06 2019-08-06 Outpatient ZEENAT Carmona MHMISCHJOHNNY [id number] 09:15:00 23:59:59 Austen Mj Gideon 2019-08-06 2019-08-06 Outpatient MHIE MHIE [id number] 265 Memoria 09:15:00 09:15:00 04 l Abad 2019-08-05 2019-08-05 Outpatient Belén-Mbayo VFP VFP [id number] [facility] 04:24:00 04:24:00 _A_AH 03063 Family Practic e 2019-08-05 2019-08-05 Outpatient Belén-Mbayo VFP VFP [id number] [facility] 04:24:00 04:24:00 _A_AH 71562 Family Practic e 2019-06-15 2019-06-15 [facility] [id number] Common 08:40:00 08:40:[address] [place] [address] [facility] 2019-05-17 2019-05-17 [facility] [id number] Common 09:40:00 09:40:[address] [place] [address] [facility] 2019-05-03 2019-05-04 Outpatient nullFlavo MNA [id number] Memoria 15:00:00 05:59:59 r Neurology 03 l Delmy Melgoza 2019-05-03 2019-05-04 Outpatient nullFlavo MNA [id number] Mem[place] 15:00:00 05:59:59 r Neurology 03 l Delmy Melgoza 2019-05-03 2019-05-03 Outpatient THOMAS CarmonaMISCHER MISCHER [id number] 09:00:00 23:59:59 Austen 03 Gideon 2019-05-03 2019-05-03 Outpatient MHIE MHIE [id number] Memoria 09:00:00 09:00:00 03 gricelda Melgoza 2019-04-30 2019-04-30 Ambulatory nullFlavo MNA [id number] Memoria 16:30:00 16:30:00 Pre-Reg r Neurology 02 l Delmy Melgoza 2019-04-30 2019-04-30 Ambulatory nullFlavo MNA [id number] Memoria 16:30:00 16:30:00 Pre-Reg r Neurology 02 l Delmy Melgoza 2019-04-30 2019-04-30 Outpatient MHIE MHIE [id number] Memoria 10:30:00 10:30:00 02 gricelda Melgoza 2019-04-30 2019-04-30 [facility] [id number] 10:30:00 10:30:00 Austen 02 Gideon 2019-03-19 2019-03-20 Outpatient nullFlavo MNA [id number] Memoria 14:30:00 04:59:59 r Neurology 01 gricelda Melgoza 2019-03-19 2019-03-20 Outpatient nullFlavo MNA [id number] Memoria 14:30:00 04:59:59 r Neurology 01 gricelda Melgoza 2019-03-19 2019-03-19 [facility] [id number] 09:30:00 23:59:59 Austen 01 Gideon 2019-03-19 2019-03-19 Outpatient MHIE MHIE [id number] 265 Memoria 09:30:00 09:30:00 01 gricelda Melgoza 2019-02-15 2019-02-15 [facility] [id number] Common 09:40:00 09:40:[address] [facility] 2018-12-03 2018-12-03 [facility] [id number] Common 11:43:00 11:43:[address] [facility] 2018-11-09 2018-11-09 [facility] [id number] Common 08:40:00 08:40:[address] [facility] 2018-08-03 2018-08-03 [facility] [id number] Common 09:00:00 09:00:[address] [facility] 2018-06-22 2018-06-22 Out[facility] [id number] Common 16:52:00 16:52:[address] [facility] 2018-05-29 2018-05-31 Outside nullFlavo MNA [id number] Memoria 15:25:00 05:59:59 Medical r Neurology 01 l Records Delmy Melgoza 2018-05-29 2018-05-31 Outside nullFlavo MNA [id number] Memoria 15:25:00 05:59:59 Medical r Neurology 01 l Records Delmy Melgoza 2018-05-29 2018-05-30 Outpatient MHMISCHER MHMISCHER [id number] 09:25:00 23:59:59 01 2018-05-06 2018-05-06 [facility] [id number] Common 11:15:00 11:15:[address] [facility] 2018-03-25 2018-03-27 Outside nullFlavo MNA [id number] Memoria 22:33:00 04:59:59 Medical r Neurology 00 l Records Delmy Melgoza 2018-03-25 2018-03-27 Outside nullFlavo MNA [id number] Memoria 22:33:00 04:59:59 Medical r Neurology 00 l Records eDlmy Melgoza 2018-03-25 2018-03-26 Outpatient MHMISCHER MHMISCHER [id number] 17:33:00 23:59:59 00 2018-03-20 2018-03-21 Outpatient nullFlavo MNA [id number] Memoria 14:30:00 04:59:59 r Neurology 00 l Delmy Roqueann 2018-03-20 2018-03-21 Outpatient nullFlavo MNA [id number] Memoria 14:30:00 04:59:59 r Neurology 00 l Tingley Abad 2018-03-20 2018-03-20 Outpatient Mathwe, MHMISCHER MHMISCHER [id number] 09:30:00 23:59:59 Austen Franklyn Meneses 2018-03-20 2018-03-20 Outpatient CHERYL LUNA [id number] Memoria 09:30:00 09:30:00 00 gricelda Melgoza 2018-03-09 2018-03-09 [facility] [id number] Common 16:06:00 16:06:[address] [facility] 2018-02-06 2018-02-06 [facility] [id number] Common 08:30:00 08:30:[address] [facility] 2017-11-07 2017-11-07 Out[facility] [id number] Common 08:30:00 08:30:[address] [place] [address] [facility] Results Test Description Test Time Test Comments Results Result Comments Source Tissue Exam 2022-07-24 20:49:10 Test Item Value Reference Range Interpretation Comme nts Case Report (test code = 104) Surgical Pathology Report Case: [id number] Authorizing Provider: Monico Lamb MD Collected: 07/11/2022 08:59 AM Ordering Location: [facility] Received: 07/11/2022 12:25 PM SERVICES Pathologist: Joya Barton MD Specimen: Penile, Penile skin and soft tissue DIAGNOSIS (test code = 3220) n3jbaVArTCQkl3loXBMvpJZwVzUbFiGmSyPnHi dWMxIHtccnRmMVxlcGljOTYwMlxhbnNpXHNwbHRw A8FydlttNXlnYH1hID9qiNuraWDnnYVoRFMsHhPw f3wci588zUTpk5ftPDKSvpnyvBx6bCaqY10vs9Y4 NeobN41iqAJtOMY9VTGcASIeaEYoKGVaLJP1BRXa hDDfB1enMUSqGH6qohoeZYygYDzjWJSkrED5IPHy qETiM7MdUEExTDpeHQWitlw7UmPxQe1fmTOonKch NWswSNQzNGEmBBdrUKGeDuXdKMZXPDbMWZRGZC3k CWWQZ2vFBS8ZKIYlndWaOHKiZTYjSABgOOPiQSFT SF7eE7yHDDKIPCgHLKAICX1LMSIGGYTWQFNWO5GN P0jzPGX1o3ojhYPzXNKkdUCfLKKeUShtohTxYCKf YuxwebzoXXTvDAZ2zrOzRIHcZSubYQJfCUbsFg6j xLWqwKibJcKiVROmq7dyalEUjwineGj5y7jqHXPz EwE2kLSmRDykR2volgGjiBLyCUHdCHx4cW06TXPq aB2gwBSoGAtefgQcBsU3VLamSMFcStB3ABNjuHFq ZFHzC8kqGDUvFNtvWWVuQJekiHOyQUZ6iZcdw8B6 dOYjuHEavBhzUoGlOkQoJiCCy3JsRNm9sWbyK2Ra XBBbTuV5iPDnFFJnJWnnBJHfKETzyyT5uX20DSkz hgH6aDVaj9Xzs74jt585aX0gaYNzLHO5IFXmKGQc rTGbSODjZLO9ZPXjgKHxS3nqHAEkEY8jbtnmHOov AGjiZHHmeSR2KSQlrGJeX8KiGKLmPLyaUUDawcx1 YsGzCr2puTDzqMimOOtmv9gjz8spaJEmNtt9VMWc ZuGhTfgmZSpjx2Pvz4amZAOmca8oVEZ0mPUtzHcl p5B0yCSjKXZpbUNbCHEcVI3rxIJnKXUyrH3obqdd TPDjXbWzkjjvEPFfiQlmknXuGn5vmZbwKJL9PKay Q0xbfZ6tUqE0SRqaV2dtoI7iZKn0XIixGAXxuZR0 xcS5YEOoyPYoP2MfnW9yLGBqOI1ekge1r8xsARE7 FOsyEKNeDvS2ncU3PPZihEElOXTobPzzGYacg311 LKG1XaSiEIXik7LqB6BsvXvpC73nvYtfJ77nZOWc nGggeH7hmIoxkW1bOoZbAzVfOWmseYmzDT2vLDVf L6myjPTqYVVgRQHhB6bgZdYfgR5vtUqjFFzytjTl CIMxYah3ZUCqkLAgMFVlLpp5RTNbXOFvG54cqyyw NXW0dS9ms2qvf4IjUBosREM8HWKhj75hNXegsoS3 GCqaXj64NAtiIPP8IAndVVI2hN== CPT Code(s) (test code = 3357) u3tdrCKpAHPzkAY3LcWhXSNzj1oxw4OnwBSv cGFy UYaehWIferNilb24iIT3jN85XY8nVJPuPwU8SQDw qtF4Nss1YAZqKMAhgRSsV375h1msz7ezstNpvQL4 fPfmASSftapaSpH9VUixEITuxpygYNz8BFcgJJNr rWL0HBVfsKZmB9AlKFRqTO7gdzl3PYS1FPuoMSVc MqV2IQCxpMVxXVYsoLriBPnbn455WLX0VvIjEOBh mqAbaItrhH4dQhCnKWL0RTOpZCixJGV6 CLINICAL HISTORY (test code = 9471) s1ivaOQsLTXkvGH3HbHyHOAiq5fgl4N sdHBncGFy IAunuVQzbnDwqi09rRV3aP14RE5gRGGpQnQ2MRQa rwD9Iip1XCNlRKQeySDsY871h3hqy5kjsdXayEK8 hLvpURCfigsaZjE8NJocSMWmeiqlZAb3VIvvVYHr aDD7DFWykGRgX9LaJPUaQO5bopk8ELJ6UWvjWWRc IfF4YLKdlKHvTYLyuIvdJZjic802ANC2EyOpPOTt jaNjyTaogH8xAmNiHHPZH9Z0iHNvQGHzrHHoGTXl cGGjaNNrFZu0bNZbJAFfqSIqq1AyN5NyjKSwcVcx XHBhcn0= GROSS DESCRIPTION (test code = l7hufSPbVIWkrUQICMEoG9lnnaVpIQVolFPm [place] [id number]) kvwhQWnpVK7iCV4dyCztcNZvlJBcUS5GHBQrPaVv GALvmRZwsoBcVtAyNFAyyLOueXV0GRUaRI3lvsly HEgpCUqyAJBrymU8WEXpiUYlQ4RdEEZbLF4kpgmj YLN5NYmehU5hmiDUGlqbDv6ksJLzmPbsLrSmTiPu SCGtGDTqMLVwwTocIQPcDCg7tF2HAsgySZQ3YWRZ YvckBGDkVA8Ui5ecFSUeuOEaUOA5PDnbhSSrALVz ARIrLGw9PXAqYMyobTYxZF3aoKavKdfprLntg5Nz gUXqHExrVHEwQLJpRJmkQTDrOH0SMkLhJZkgMzU8 TeZsDNa6JVd5RY5MImBnENHiMlV1FsvbMbLeTHz2 LXdqBV1XLHX9ALf9NxN6JrV6PCGdIPRtGUAwMhOq RSEtNIQkKRzfUBticKYvAY5tnOtigCXmawZGKnAG OD6kpLRaPJIbkuWWOtykxEamVbGeuXGeWqDmWCwn bHRycGFyXGxpbjBccmluMCANClxsdHJjaFxmczIw DPRmJ0PjxzJbPKUxWJQvXSMrVJPodNDvXRxxfRqq aCkvSMGouFhurnEhkeZkYF0uUXKJEa5nQC3mFEVa VZ9ehDRmcRpzMaIrFYp6UNCeqpEkYZutHGX0DAfq ESF2MUDdMjTxcZXgs4X2xY1aZK2kPCikvI6pzKCg LTFvgk9puP3aPPYzdF4iFRMbZAGigYceZLUkuQFm uDZkwM6cSX6argnzLwzkGaOJrVRap4ZcG2ssPW4w lHSzs6VkqHphdvDcYMXpMKZzurBjbc3xjaMdISFf t22dACAgMWEgBPAccEuorDInClLTLOOhVGOhznKs xLs9IXKjWZY0xI3inxZspyTdq6TjpLv8aYVvIYgz LLFjQBI1EbNyJZojHUADSe8uwOOmPW1LCDZrgaDV NyesjOddxuaoHPMQVQmywkXgPQPPJHA3bPQngfWF ArfnfHWsgusjrPzzEwCsdOOqWjLorTfxnY85VCFr nYToFKY9AI9dUQXtokioMHIeVFBrFFU4DIjaxA30 rDGfBPWdFIHdrXNpyA2LCEXaHON4KXxbkB76eRIa WL2QAGLwGNP4XOMdbRGpMMD3GC7xxH8EzV== MICROSCOPIC DESCRIPTION (test code = m6cflBOgEEJktXT3WxZtKCTzl3ahl0 BsdHBncGFy 3371) WKcmdHJcwxUdli51xGD2zP75HS8tTGIpAiX6RIUm fdM9Jat3HKFhHIUraBYtD065y6gsr9sxdaDixMK8 iZqbUMScmcfrHyD9ODcgGGYppjwvJOc2BRrqFNWw xXS5XDUsnOPrD9ZdCEDtZS9znnt3SJM8BMehZAUw CwK0OOHazSEvCHGtyRcyNGkqc269UGP0CjPlHVUg zoDxoVxynF5aPzRhZLKJZNEds8JdZXQwECDkbw0= Gross assessment was performed at (test [facility] enter, code = 2777) Department of Pathology, [address] [place] [address]33, Technical component was performed at [facility] er, (test code = 2778) Department of Pathology, [address] [place] [address] 07179, Professional component was performed at [facility] enter, (test code = 2779) Department of Pathology, [address] [place] [address], [id number] 20:49:10 Test Item Value Reference Range Interpretation Comments Case Report (test code Surgical Pathology = 104) Report Case: [id number] Authorizing Provider: Monico Lamb MD Collected: 07/11/2022 08:59 AM Ordering Location: [facility] Received: 07/11/2022 12:25 PM SERVICES Pathologist: Joya Barton MD Specimen: Penile, Penile skin and soft tissue DIAGNOSIS (test code = g8mkiMFfWXUmz4uaEBNqrOT 3220) uZzEwMzNcZnRuYmpcdWMxIH tccnRmMVxlcGljOTYwMlxhb cQtYYTypZVrD8AkjkkzNAst QA4yVI4zjYssoGIcjQTrOHR oMpNva8dez131kBKeu6ijSW YOlnsdnGc3nMamR85cr3B0Q ofjF95bqCTzSFW4BPGaHVGu xCLwQGIsMPV6QCZgrJUzH8s aUFEtXW8dyrmoJMsaKEtrHE YtrJH1PHIhoTSrH6EtJNPgC DuhTRLfkla8KwAgQh0hhAOf eTcyMFxwYXJkXHBsYWluXGZ cMiMpJMOOXZcJDKNASJ0wAH LIA9dCSD6CHPYpxsWeJOLkI LIiTQWtFQRaXMDYZC7bE0uJ TLBPMLvOMRUDDR0ZRWDKJCJ RQMNBZ3CUL9ksAHN9s7bigV YxXHNzdGUxODAwMFxhbnNpX FBtWaksqopoEHEtDQA0ztTd ALDuHRacGXKqJOxbSd8eoAM htEhoBgBeDGUyf4gfexBMpo qtjPf2z1zsVWOmCgQ5rLAcO WzxP3radxRqtNEzPTKaLXv2 pT19QFIovC6dmUDbLFnuriX uHfV1ERixNJUeVtM8SYTonE WvGBBxM0luGDAoJDgxYIQrZ ZwqqJMlJPF8uRugd9T4jKYg xWDoePiaDeTlGsJzNbRYi7Q oVVx4fChyF6SoOHLgEzI6oX GpFVUhYCtpXRKqMNSmchE1l L15YIqmtfU2uTKdu1Lrv12s q161aI7uqHHzOAW0EETgTMP ftZReSSFbMYA9LDAfxRHcQ6 mnSAUzSE5wistlQCcxWDzaY CDbyRQ4FRZmaDMzY2YuOOGv QOtnYMNwmle9RlAiYr7itIT zuCzoNNrcy9atr1uvhDTwVf g2QYGpIyQrDzuyEOosn1Ncf 3mkQCUkeh0tIVB5vWBkfZwe l3Q6oHDrAEVqeXJtJHBuDV3 rrHVtYDQgoU1qgpqwLENgPj YcxlwqMWVcnFauleGoRl8ac TcuEZT2YGpfY3zaxA9mZrT9 IHfgS6ukjH8vWOf0HVtdXHP laGB5jnF3RVMamUFiS4WgoM 5mIJVqGE4qyjf3j5szHYP7X CwhLFCdSyH0kxR4CWLvnAMr NQChqZtuQEmey710TGY7WlZ sRMBkt5TbE4TzrVeyG73pfU qzV36xYCFzaOvwsO2vzLhxg S6lEpBoFvSrPIiwaUtoXQ1f HQQqP1wrkEXxZMIuAKXsP8i pSdUhuC2hsVbsKLejtnSlWD AtFvl6AMQanWGfIZRdUlt0V MVqHHVgS30gnwkjJYE7qW1p t2dgl5QnBKmpYIN6RRFjt95 cLPsxggI5PDutVx25LTjvIT H3CQyrEII5tV== CPT Code(s) (test code s2fqpADzOTRytMJ3HzVnGUS = 3357) js1zxc7GjpDEucQMdQEumjA SnqzLcka60lZQ2pK91NB8eP UVgShS6DMPmrsF5Ezn1HGWf GGBabOHcO290c2sqx0bfxxA uoTS8fVyqOGBgidwqLqG0LM mbAZNxvfctRRr0OJpvYHTtk WN9AXXhvDDzO6UlTEXjHI5i cyv4HTM5NXutUWHdPyW4BOL abYTmQFCuwOnaSUgkv961XK I7RpBrHUQfjzFcvChenP1tA lYtARW0TCBlTRizAPD8 CLINICAL HISTORY (test e0nniWUzSCBrmDA3AkPrXMD code = 3356) ee2eoy8RvfZYipVHdRHsyjW FpygLejg78zPF0zE08EM9hD FQbQiF2OEYzvkY5Dpk7AFCk KZSnrFRpE489j3mqb5iidqT eyUW6cPexCDAcdvbnDbU2YL bhMPXllfqnGZc6NYoeMWRak GL2TFUrjZVwM1OmUPXjJM5k kep7STS6COhuRUOmOuO2QKS vaLAhGYGieOucCReth788WX D4HcDeBFTkwzYzyJxuqZ6iF cZmFBCBC8P6aMYeVYWgmQRf AOBbaAGvpYTtSBg0dPFpKBC ipWYqy3TmS9KltXTquLljVO Bhcn0= GROSS DESCRIPTION a0mkwGUgTDGwsVCVIPKtA7s (test code = blxZgKWEsuTLaG1EdvdddEK [id number]) gmQA9yAT2zeQbqbSDzsSNzC J5LUZPqPnRlWETfqMUbtgTf NdIpRKHiuNKklSB2OPRdST5 ssekwTLtrWJayXIVudeN0TZ ZnxNWrL1UkAAVeGV1ztewnH GI3GPfeaM5ebyOFDcxbFw7f dHRibHtcZjFcZmNoYXJzZXQ uRBEfmBogIMVqMEb1jU0PZj xjSWS1OZSHHatyGCChBH1Up 9lcCJCpwNPzNUG9QNuouBJv EDIfQHYyUCx1TZJjODalnJJ nPR4vbTnhWtdaaKole5CbiM BcXGlkIDUxMDAyIFxcZGIgI M7WIcDfAQpwSnG5ShXfVPs6 KUl5ZD8NAuLbFRQcNoL8Weu kGlPnSWj6NAhkQO4JPWN3OW c7PkM9FzI9YDPyIYEmMWVkP iBcXGYgQXJpYWwgXFxmbCBc PS5hvAmewRDgejPMKkXSPJ0 pbGUuXHBhciANClxlcGljTm VzdERvYzEgDQpcbHRycGFyX GxpbjBccmluMCANClxsdHJj yUzhxsDrVHVdY1NszhZaGZY yZXNoLCBsYWJlbGVkIHdpdG ggdGhlIHBhdGllbnQncyBuY A5gZYPKYz6zSM4bKVXdMK2g wHVryVbtBrGnUWd0ATTpttF vTHxbGGK5DXdpYQA3PLVjFa QabEZon0A0zP5hFC5aOFfon T7icTIxPFUqpo8ndR7iDFVu xH7mTJHnVRRpiCvxQOHjeCX uiYBnuA2mPG9jghzsTgeaJd FXgNOxg4YlH6vcBC3viTTzz 2VjdGlvbmVkIGFuZCBubyBn eu9bsjNqYLUvm48zHOBwYOV pZGVudGlmaWVkLiBSZXByZX AazaTjxMf7FAFlZHO7aJ1ar jVdjzMpm1FsrVg8fPDxWOpf NUScTXM8KqSnVSlrKALXKy8 mhSIkSO4WDWRkpiUDUbmajL hlcmluZSBOYWplcmEsIFBBI JM7wPArdfPVWngdhIUylhdh cGljTmVzdERvYzBccGxhaW5 5YBJezYAoTTJ2IN6aSUEyqx cmJOPoHBIyNML8GEhcmJ65q FYrYYLvNEZfxOEotO2YIFKx HQB9WRqdtD65gEEfHI3VBTO yUMK0PORewXUfEYB2PF0fqW 0KfQ== MICROSCOPIC u9wdaKOqPUChyAV8SiSzLLH DESCRIPTION (test code sa3hta6NokUJhnWJrTJflkH = 3371) DzjlGmzz91bDN9tH05JO5tU FYlTbV6VRIubqZ9Swx4XXCv NAWhvBXoG942u5wey4fzejO srHC0jMohGBFxzbkqCfY6EA xrHTFlwfsmFHh1AAfzLUOum EX1QIKcjMKsR3AzWKUpNR3q pso7IEO6DJbuTTSrQmV6UZC dbQLfMYHooYlvJPptc597ZN V9GuKhYHDvxlVibHzgdF7uH tDvNGFNJUGpa1ZbZMDfNMHi cn0= Gross assessment was [facility] performed at ([facility], code = 2777) Department of Pathology, [address] [place] [address], Technical component [facility] was performed at ([facility], code = 2778) Department of Pathology, [address] [place] [address], Professional component [facility] was performed at ([facility], code = 2779) Department of Pathology, [address] [place] [address], [facility] [id number] 20:49:10Surgical Pathology Report Case: [id number] Authorizing Provider: Monico Lamb MD Collected: 07/11/2022 08:59 AM Ordering Location: [facility] Received: 07/11/2022 12:25 PM SERVICES Pathologist: Joya Barton MD Specimen: Penile, Penile skin and soft tissue PENILE SKIN, EXCISION -SKIN WITH MILD EDEMA AND FIBROSIS Signing Pathologist Direct Phone Line: [phone] feliciano d by Joya Barton MD on 07/24/2022 at 8:49 [id number] buried penis, lymphedema of genitaliaA. Penile.Received fresh, labeled with the patient's name, MRN and "penile" is a 9.5 x 7.4 x 1.3 cm portion of wrinkled moncada-pink skin. The epidermis is unremarkable. The specimen is sectioned and no gross l esions are identified. Batch Trucker sections are submitted in A1-A2.SAMINA Burgess StudentPerformed.[facility], Department of Pathology, [address] [place], [place] [id number], [facility], Department of Pathology, [address] [place], [place] [id number], [facility], Department of Pathology, [address] [place] [address], JQO-Glucose [id number] 13:06:33 Test Item Value Reference Range Interpretation Comments POC-Glucose Meter (test 98 mg/dL 70-110 : TE STED AT [facility] code = 1538) [address] [place] [address], 770 30: Coffee Urn Attendant/Techni jayde ID = [id number] for HAN MCDERMOTT A Lab Interpretation (test Normal code = 40890-3) [facility] [id number] 13:06:33 Test Item Value Reference Range Interpretation Comments POC-Glucose Meter (test 98 mg/dL 70-110 : TE STED AT [facility] code = 1538) [address] [place] [address], 770 30: Coffee Urn Attendant/Techni jayde ID = [id number] for HAN MCDERMOTT A Lab Interpretation (test Normal code = 12417-7) [facility]-Glucose [id number] 13:06:33 Test Item Value Reference Range Interpretation Comments POC-Glucose Meter (test 98 mg/dL 70-110 : TE STED AT [facility] code = 1538) [address] [place] [address], 770 30: Coffee Urn Attendant/Techni jayde ID = [id number] for HAN MCDERMOTT A Lab Interpretation (test Normal code = 04624-5) [facility] Center[facility]SE [id number] 13:06:33 Test Item Value Reference Range Interpretation Comments POC-GLUCOSE METER 98 mg/dL 70-110 : TESTED A T [facility] 6720 (BEAKER) (test code = [facility], 1538) [address]: Coffee Urn Attendant/Techni jayde ID = [id number] for HOLLY GREEN POCT-GLUCOSE [id number] 06:55:10 Test Item Value Reference Range Interpretation Comments POC-GLUCOSE METER 92 mg/dL 70-110 : Verify w / Lab Draw: (BEAKER) (test code = TESTED AT [facility] 6720 1538) [facility], [address]: Coffee Urn Attendant/Techni jayde ID = [id number] for FLOYD KAUR POCT-GLUCOSE [id number] 22:42:16 Test Item Value Reference Range Interpretation Comments POC-GLUCOSE METER 100 mg/dL 70-110 : [facility] T [facility] 6720 [facility] (test code = [facility], 1538) [address]: Coffee Urn Attendant/Techni jayde ID = [id number] for ON UOHA, FLOYD POCT-GLUCOSE [id number] 17:56:55 Test Item Value Reference Range Interpretation Comments POC-GLUCOSE METER 120 mg/dL 70-110 H : TESTED A T [facility] 6720 ([facility]) (test code = [facility], 1538) [address]: Coffee Urn Attendant/Techni jayde ID = [id number] for Mo ses, Lizz POCT-GLUCOSE [id number] 11:56:28 Test Item Value Reference Range Interpretation Comments POC-GLUCOSE METER 92 mg/dL 70-110 : TESTED A T [facility] 6720 (BEAKER) (test code = [facility], 1538) [address]: Coffee Urn Attendant/Techni jayde ID = [id number] for Refugio s, Lizz POCT-GLUCOSE [id number] 06:39:53 Test Item Value Reference Range Interpretation Comments POC-GLUCOSE METER 88 mg/dL 70-110 : [facility] 67[facility] (test code = [facility], 1538) [address]: Coffee Urn Attendant/Techni jayde ID = [id number] for SEMI EN, FREDY POCT-GLUCOSE [id number] 21:39:41 Test Item Value Reference Range Interpretation Comments POC-GLUCOSE METER 100 mg/dL 70-110 : TESTED A T [facility] 6720 ([facility]) (test code = [facility], 1538) [address]: Coffee Urn Attendant/Techni jayde ID = [id number] for SE MIEN, FREDY POCT-GLUCOSE [id number] 16:35:37 Test Item Value Reference Range Interpretation Comments POC-GLUCOSE METER 88 mg/dL 70-110 : TESTED A T [facility] 6720 (BEAKER) (test code = [facility], 1538) [address]: Coffee Urn Attendant/Techni jayde ID = [id number] for Thai Sonya teeia POCT-GLUCOSE [id number] 13:52:16 Test Item Value Reference Range Interpretation Comments POC-GLUCOSE METER 95 mg/dL 70-110 : TESTED A T [facility] 6720 (BEAKER) (test code = [facility], [facility]) [address]: Coffee Urn Attendant/Techni jayde ID = [id number] for Sonya Armstrongia POCT-GLUCOSE [id number] 06:46:58 Test Item Value Reference Range Interpretation Comments POC-GLUCOSE METER 95 mg/dL 70-110 : TESTED A T [facility] 6720 (BEAKER) (test code = [facility], [facility]) [address]: Coffee Urn Attendant/Techni jayde ID = [id number] for Cawo od, Pat POCT-GLUCOSE [id number] 22:04:13 Test Item Value Reference Range Interpretation Comments POC-GLUCOSE METER 85 mg/dL 70-110 : TESTED A T [facility] 6720 (BEAKER) (test code = [facility], [facility]) [address]: Coffee Urn Attendant/Techni jayde ID = [id number] for Cawo od, Pat POCT-GLUCOSE [id number] 17:09:44 Test Item Value Reference Range Interpretation Comments POC-GLUCOSE METER 96 mg/dL 70-110 : TESTED A T [facility] 6720 (BEAKER) (test code = [facility], [facility]) [address]: Coffee Urn Attendant/Techni jayde ID = [id number] for THELMA HIGUERA, HOLLY POCT-GLUCOSE [id number] 12:35:15 Test Item Value Reference Range Interpretation Comments POC-GLUCOSE METER 149 mg/dL 70-110 H : TESTED A T [facility] 6720 (BEAKER) (test code = [facility], [facility]) [address]: Coffee Urn Attendant/Techni jayde ID = [id number] for IAN RAHMAN, HOLLY POCT-GLUCOSE [id number] 06:35:48 Test Item Value Reference Range Interpretation Comments POC-GLUCOSE METER 94 mg/dL 70-110 : TESTED A T [facility] 6720 (BEAKER) (test code = [facility], [facility]) [address]: Coffee Urn Attendant/Techni jayde ID = [id number] for Jose Luis n, Annie POCT-GLUCOSE [id number] 22:11:28 Test Item Value Reference Range Interpretation Comments POC-GLUCOSE METER 117 mg/dL 70-110 H : TESTED A T [facility] 6720 (BEAKER) (test code = [facility], 1538) 00236: Coffee Urn Attendant/Techni jayde ID = [id number] for Kindra Felicianoitra POCT-GLUCOSE [id number] 16:20:59 Test Item Value Reference Range Interpretation Comments POC-GLUCOSE METER 98 mg/dL 70-110 : TESTED A T [facility] 6720 (BEAKER) (test code = [facility], 1538) 34618: Coffee Urn Attendant/Techni jayde ID = [id number] for THELMA HIGUERA HOLLY POCT-GLUCOSE [id number] 15:22:34 Test Item Value Reference Range Interpretation Comments POC-GLUCOSE METER 101 mg/dL 70-110 : TESTED A T [facility] 6720 (BEAKER) (test code = [facility], 1538) 53155: Coffee Urn Attendant/Techni jayde ID = [id number] for IAN RAHMAN HOLLY POCT-GLUCOSE [id number] 06:28:45 Test Item Value Reference Range Interpretation Comments POC-GLUCOSE METER 108 mg/dL 70-110 : TESTED A T [facility] 6720 (BEAKER) (test code = [facility], 1538) 47473: Coffee Urn Attendant/Techni jayde ID = [id number] for Vinay jiménez (contract)Rowdy trav BASIC METABOLIC [id number] 05:08:37 Test Item Value Reference Range Interpretation Comments SODIUM (BEAKER) 138 meq/L 136-145 (test code = 381) POTASSIUM 4.1 meq/L 3.5-5.1 (BEAKER) (test code = 379) CHLORIDE (BEAKER) 106 meq/L 98-107 (test code = 382) CO2 (BEAKER) 26 meq/L 22-29 (test code = 355) BLOOD UREA 14 mg/dL 7-21 NITROGEN (BEAKER) (test code = 354) CREATININE 1.02 mg/dL 0.57-1.25 (BEAKER) (test code = 358) GLUCOSE RANDOM 109 mg/dL 70-105 H (BEAKER) (test code = 652) CALCIUM (BEAKER) 8.4 mg/dL 8.4-10.2 (test code = 697) EGFR (BEAKER) 83 Interpretatio n of eGFR (test code = mL/min/1.73 values Stage De scription 1092) sq m Result G1 Sheila l or high >=90 G2 Mildly decreased 60-89 G3a Mild ly to moderately 45-5 9 G3b Moderately to s everely 30-44 G4 Severl y decreased 15-29 G5 Kidney failure <15Reported eGF R is based on the CKD-EPI 2020 equation that d oes not use a race coefficientEsti mated GFR is not as accur ate as Creatinine Ayesha viviane in predicting glom erular filtration rate . Estimated GFR is not appl icable for dialysis patien ts Coffee Urn Attendant ID - PIAYA LPOCT-GLUCOSE [id number] 23:33:22 Test Item Value Reference Range Interpretation Comments POC-GLUCOSE METER 125 mg/dL 70-110 H : TESTED A T [facility] 6720 ([employer]) (test code = [facility], 1538) 60552: Coffee Urn Attendant/Techni jayde ID = [id number] for Vinay jiménez (contract)Rowdy POC-Glucose uoaut0799-87-56 11:02:23 Test Item Value Reference Range Interpretation Comments POC-Glucose Meter (test 99 mg/dL 70-110 : TE STED AT [facility] code = 1538) 6720 [facility], 770 30: Coffee Urn Attendant/Techni jayde ID = [id number] for MarybethDanika Lab Interpretation (test Normal code = 51451-8) [facility] [id number] 11:02:23 Test Item Value Reference Range Interpretation Comments POC-GLUCOSE METER 99 mg/dL 70-110 : TESTED A T [facility] 6720 ([employer]) (test code = [facility], 1538) 52913: Coffee Urn Attendant/Techni jayde ID = [id number] for Fabienne Jordan POCT-GLUCOSE [id number] 06:38:09 Test Item Value Reference Range Interpretation Comments POC-GLUCOSE METER 88 mg/dL 70-110 : TESTED A T [facility] 6720 ([employer]) (test code = [facility], 1538) 29471: Coffee Urn Attendant/Techni jayde ID = [id number] for Hoot on, Claire Urine lbgtzkz6778-80-76 11:13:46 Test Item Value Reference Range Interpretation Comments Result (test code = >100,000 col/mL A 6463-4) Viridans Streptococcus Lab Interpretation Abnormal (test code = 32918-0) [facility] ygkipln6225-68-84 11:13:46 Test Item Value Reference Range Interpretation Comments Result (test code = >100,000 col/mL A 6463-4) Viridans Streptococcus Lab Interpretation Abnormal (test code = 81909-7) [facility] dabvfkg4386-40-38 11:13:46 Test Item Value Reference Range Interpretation Comments Result (test code = >100,000 col/mL A 6463-4) Viridans Streptococcus Lab Interpretation Abnormal (test code = 66090-6) [facility] btzyevw7737-20-16 11:13:46 Test Item Value Reference Range Interpretation Comments Result (test code = >100,000 col/mL A 6463-4) Viridans Streptococcus Lab Interpretation Abnormal (test code = 83615-4) [facility] IAPBNLI4719-32-10 11:13:46 Test Item Value Reference Range Interpretation Comments CULTURE (BEAKER) A >100,000 co l/mL Viridans (test code = 1095) Streptoco ccus Urinalysis w/Vjsjfnnaamp3828-43-56 14:30:11 Test Item Value Reference Range Interpretation Comments Color, UA (test code Yellow = 5778-6) Clarity, UA (test Clear code = 5767-9) Specific [place], UA 1.021 1.001-1.035 (test code = 5811-5) pH, UA (test code = 6.0 5.0-8.0 5803-2) Protein, UA (test Negative Negative code = 96056-7) Glucose, UA (test Negative Negative code = 365) Ketones, UA (test Negative Negative code = 2514-8) Bilirubin, UA (test Negative Negative code = 80982-2) Blood, UA (test code Negative Negative = 98669-6) Nitrite, UA (test Negative Negative code = 5802-4) Leukocytes, UA (test Trace Negative A code = 5799-2) Urobilinogen, UA 0.2 0.2-1.0 (test code = 72538-0) RBC, UA (test code = 1 See_Comment [Autom ated 23030-0) message] The system which generated this result transmit brandon reference range : /HPF. The reference range was not used to interpret this result as normal/abnormal . WBC, UA (test code = 2 See_Comment [Autom ated 5821-4) message] The system which generated this result transmit brandon reference range : /HPF. The reference range was not used to interpret this result as normal/abnormal . Mucus (test code = Rare 8247-9) Squam Epithel, UA 4 See_Comment [Automate d (test code = 44630-4) messag e] The system which generated this result transmit brandon reference range : /HPF. The reference range was not used to interpret this result as normal/abnormal . Specimen Source (test Urine, Clean code = 2795) Catch HUAN (test code = HUAN) Coffee Urn Attendant ID - [auto]Coffee Urn Attendant ID - tech Lab Interpretation Abnormal (test code = 44905-2) [facility] Center[facility]/Unnjclfsnfz3288-87-35 14:30:11 Test Item Value Reference Range Interpretation Comments Color, UA (test code Yellow = 5778-6) Clarity, UA (test Clear code = 5767-9) Specific [place], UA 1.021 1.001-1.035 (test code = 5811-5) pH, UA (test code = 6.0 5.0-8.0 5803-2) Protein, UA (test Negative Negative code = 19329-1) Glucose, UA (test Negative Negative code = 365) Ketones, UA (test Negative Negative code = 2514-8) Bilirubin, UA (test Negative Negative code = 29528-2) Blood, UA (test code Negative Negative = 31192-6) Nitrite, UA (test Negative Negative code = 5802-4) Leukocytes, UA (test Trace Negative A code = 5799-2) Urobilinogen, UA 0.2 0.2-1.0 (test code = 27081-0) RBC, UA (test code = 1 See_Comment [Autom ated 50767-8) message] The system which generated this result transmit brandon reference range : /HPF. The reference range was not used to interpret this result as normal/abnormal . WBC, UA (test code = 2 See_Comment [Autom ated 5821-4) message] The system which generated this result transmit brandon reference range : /HPF. The reference range was not used to interpret this result as normal/abnormal . Mucus (test code = Rare 8247-9) Squam Epithel, UA 4 See_Comment [Automate d (test code = 96842-4) messag e] The system which generated this result transmit brandon reference range : /HPF. The reference range was not used to interpret this result as normal/abnormal . Specimen Source (test Urine, Clean code = 2795) Catch HUAN (test code = HUAN) Coffee Urn Attendant ID - [auto]Coffee Urn Attendant ID - tech Lab Interpretation Abnormal (test code = 00008-2) [facility]/Ryjeifthhsk8896-95-64 14:30:11 Test Item Value Reference Range Interpretation Comments Color, UA (test code Yellow = 5778-6) Clarity, UA (test Clear code = 5767-9) Specific [place], UA 1.021 1.001-1.035 (test code = 5811-5) pH, UA (test code = 6.0 5.0-8.0 5803-2) Protein, UA (test Negative Negative code = 90364-7) Glucose, UA (test Negative Negative code = 365) Ketones, UA (test Negative Negative code = 2514-8) Bilirubin, UA (test Negative Negative code = 69546-8) Blood, UA (test code Negative Negative = 39564-2) Nitrite, UA (test Negative Negative code = 5802-4) Leukocytes, UA (test Trace Negative A code = 5799-2) Urobilinogen, UA 0.2 0.2-1.0 (test code = 31619-7) RBC, UA (test code = 1 See_Comment [Autom ated 24009-9) message] The system which generated this result transmit brandon reference range : /HPF. The reference range was not used to interpret this result as normal/abnormal . WBC, UA (test code = 2 See_Comment [Autom ated 5821-4) message] The system which generated this result transmit brandon reference range : /HPF. The reference range was not used to interpret this result as normal/abnormal . Mucus (test code = Rare 8247-9) Squam Epithel, UA 4 See_Comment [Automate d (test code = 46148-6) messag e] The system which generated this result transmit brandon reference range : /HPF. The reference range was not used to interpret this result as normal/abnormal . Specimen Source (test Urine, Clean code = 2795) Catch HUAN (test code = HUAN) Coffee Urn Attendant ID - [auto]Coffee Urn Attendant ID - tech Lab Interpretation Abnormal (test code = 96462-3) [facility]/Rheyomstgxi9648-86-96 14:30:11 Test Item Value Reference Range Interpretation Comments Color, UA (test code Yellow = 5778-6) Clarity, UA (test Clear code = 5767-9) Specific [place], UA 1.021 1.001-1.035 (test code = 5811-5) pH, UA (test code = 6.0 5.0-8.0 5803-2) Protein, UA (test Negative Negative code = 24072-7) Glucose, UA (test Negative Negative code = 365) Ketones, UA (test Negative Negative code = 2514-8) Bilirubin, UA (test Negative Negative code = 78616-0) Blood, UA (test code Negative Negative = 22881-4) Nitrite, UA (test Negative Negative code = 5802-4) Leukocytes, UA (test Trace Negative A code = 5799-2) Urobilinogen, UA 0.2 0.2-1.0 (test code = 18061-1) RBC, UA (test code = 1 See_Comment [Autom ated 70574-8) message] The system which generated this result transmit brandon reference range : /HPF. The reference range was not used to interpret this result as normal/abnormal . WBC, UA (test code = 2 See_Comment [Autom ated 5821-4) message] The system which generated this result transmit brandon reference range : /HPF. The reference range was not used to interpret this result as normal/abnormal . Mucus (test code = Rare 8247-9) Squam Epithel, UA 4 See_Comment [Automate d (test code = 29688-8) messag e] The system which generated this result transmit brandon reference range : /HPF. The reference range was not used to interpret this result as normal/abnormal . Specimen Source (test Urine, Clean code = 2795) Catch HUAN (test code = HUAN) Coffee Urn Attendant ID - [auto]Coffee Urn Attendant ID - tech Lab Interpretation Abnormal (test code = 53975-5) [facility]/ EARDKBMPGJG1237-76-76 14:30:11 Test Item Value Reference Range Interpretation Comments COLOR (BEAKER) (test code Yellow = 470) CLARITY (BEAKER) (test Clear code = 469) SPECIFIC GRAVITY UA 1.021 1.001-1.035 (BEAKER) (test code = 468) PH UA (BEAKER) (test code 6.0 5.0-8.0 = 467) PROTEIN UA (BEAKER) (test Negative Negative code = 464) GLUCOSE UA (BEAKER) (test Negative Negative code = 365) KETONES UA (BEAKER) (test Negative Negative code = 371) BILIRUBIN UA (BEAKER) Negative Negative (test code = 462) BLOOD UA (BEAKER) (test Negative Negative code = 461) NITRITE UA (BEAKER) (test Negative Negative code = 465) LEUKOCYTE ESTERASE UA Trace Negative A (BEAKER) (test code = 466) UROBILINOGEN UA (BEAKER) 0.2 0.2-1.0 (test code = 463) RBC UA (BEAKER) (test code 1 /HPF = 519) WBC UA (BEAKER) (test code 2 /HPF = 520) MUCUS (BEAKER) (test code Rare = 1574) SQUAMOUS EPITHELIAL 4 /HPF (BEAKER) (test code = 516) SOURCE(BEAKER) (test code Urine, Clean Catch = 2795) Coffee Urn Attendant ID - [auto]Coffee Urn Attendant ID - techBASIC METABOLIC HWRHZ4419-41-00 13:55:57 Test Item Value Reference Range Interpretation Comments SODIUM (BEAKER) 146 meq/L 136-145 H (test code = 381) POTASSIUM 5.0 meq/L 3.5-5.1 (BEAKER) (test code = 379) CHLORIDE (BEAKER) 109 meq/L 98-107 H (test code = 382) CO2 (BEAKER) 30 meq/L 22-29 H (test code = 355) BLOOD UREA 11 mg/dL 7-21 NITROGEN (BEAKER) (test code = 354) CREATININE 1.01 mg/dL 0.57-1.25 (BEAKER) (test code = 358) GLUCOSE RANDOM 95 mg/dL 70-105 (BEAKER) (test code = 652) CALCIUM (BEAKER) 9.9 mg/dL 8.4-10.2 (test code = 697) EGFR (BEAKER) 84 Interpretatio n of eGFR (test code = mL/min/1.73 values Stage De scription 1092) sq m Result G1 Sheila l or high >=90 G2 Mildly decreased 60-89 G3a Mildl y to moderately 45-5 9 G3b Moderately to s everely 30-44 G4 Severl y decreased 15-29 G5 Kidney failure <15Reported eGF R is based on the CKD-EPI 2021 equation that d oes not use a race coefficientEsti mated GFR is not as accur ate as Creatinine Ayesha viviane in predicting glom erular filtration rate . Estimated GFR is not appl icable for dialysis patien ts Coffee Urn Attendant ID - ADMINPT/LMJZ8764-81-14 13:52:38 Test Item Value Reference Range Interpretation Comments PROTIME (BEAKER) (test 13.2 seconds 11.9-14.2 code = 759) INR (BEAKER) (test 1.02 See_Comment [Automat ed code = 370) message] The sy stem which generated this result transmitted reference range : <=5.90. The reference range was not used to interpret this result as normal/abnormal . PARTIAL THROMBOPLASTIN 29.3 seconds 22.5-36.0 TIME (BEAKER) (test code = 760) RECOMMENDED COUMADIN/WARFARIN INR THERAPY RANGESSTANDARD DOSE: 2.0 - 3.0 Includes: PROPHYLAXIS for venous thrombosis, systemic embolization; TREATMENT for venous thrombosis and/or pulmonary embolus.HIGH RISK: Target INR is 2.5-3.5 for patients with mechanical heart valves.CBC W/PLT COUNT & AUTO DRCFLMJSMNQZ4982-10-52 13:28:29 Test Item Value Reference Range Interpretation Comments WHITE BLOOD CELL COUNT (BEAKER) 7.4 K/ L 3.5-10.5 (test code = 775) RED BLOOD CELL COUNT (BEAKER) 4.71 M/ L 4.63-6.08 (test code = 761) HEMOGLOBIN (BEAKER) (test code = 14.8 GM/DL 13.7-17.5 410) HEMATOCRIT (BEAKER) (test code = 46.7 % 40.1-51.0 411) MEAN CORPUSCULAR VOLUME (BEAKER) 99 fL 79-92 H (test code = 753) MEAN CORPUSCULAR HEMOGLOBIN 31.4 pg 25.7-32.2 (BEAKER) (test code = 751) MEAN CORPUSCULAR HEMOGLOBIN CONC 31.7 GM/DL 32.3-36.5 L (BEAKER) (test code = 752) RED CELL DISTRIBUTION WIDTH 13.8 % 11.6-14.4 (BEAKER) (test code = 412) PLATELET COUNT (BEAKER) (test 204 K/CU MM 150-450 code = 756) MEAN PLATELET VOLUME (BEAKER) 9.8 fL 9.4-12.4 (test code = 754) NUCLEATED RED BLOOD CELLS 0 /100 WBC 0-0 (BEAKER) (test code = 413) NEUTROPHILS RELATIVE PERCENT 60 % (BEAKER) (test code = 429) LYMPHOCYTES RELATIVE PERCENT 28 % (BEAKER) (test code = 430) MONOCYTES RELATIVE PERCENT 9 % (BEAKER) (test code = 431) EOSINOPHILS RELATIVE PERCENT 3 % (BEAKER) (test code = 432) BASOPHILS RELATIVE PERCENT 1 % (BEAKER) (test code = 437) NEUTROPHILS ABSOLUTE COUNT 4.42 K/ L 1.78-5.38 (BEAKER) (test code = 670) LYMPHOCYTES ABSOLUTE COUNT 2.10 K/ L 1.32-3.57 (BEAKER) (test code = 414) MONOCYTES ABSOLUTE COUNT (BEAKER) 0.64 K/ L 0.30-0.82 (test code = 415) EOSINOPHILS ABSOLUTE COUNT 0.20 K/ L 0.04-0.54 (BEAKER) (test code = 416) BASOPHILS ABSOLUTE COUNT (BEAKER) 0.04 K/ L 0.01-0.08 (test code = 417) IMMATURE GRANULOCYTES-RELATIVE 0.30 % 0.00-1.00 PERCENT (BEAKER) (test code = 2801) POCT URINALYSIS, [id number] 13:32:00 Test Item Value Reference Range Interpretation Comments POCT U SP GRAV (test code = 1.025 mg/dl 1.005-1.025 3255) POCT PH U (test code = 3254) 6.0 mg/dl 5-8 POCT U LEUK EST (test code = Large Negative - Negative 3263) POCT U NIT (test code = 3262) Positive Negative - Negative POCT U PROT (test code = Negative - Negative 3259) POCT U GLU (test code = 3256) negative Negative - Negative POCT U KETONE (test code = negative Negative - Negative 3258) POCT U UROBILI (test code = 0.2 mg/dl 0.2-1 3260) POCT U BILI (test code = negative Negative - Negative 3261) POCT U BLD (test code = 3257) small Negative - Negative POCT U COLOR (test code = Valentina 3266) POCT U APPEAR (test code = Cloudy 3267) [facility] [id number] 13:32:00 Test Item Value Reference Range Interpretation Comments POCT U SP GRAV (test code = 1.025 mg/dl 1.005-1.025 3255) POCT PH U (test code = 3254) 6.0 mg/dl 5-8 POCT U LEUK EST (test code = Large Negative - Negative 3263) POCT U NIT (test code = 3262) Positive Negative - Negative POCT U PROT (test code = Negative - Negative 3259) POCT U GLU (test code = 3256) negative Negative - Negative POCT U KETONE (test code = negative Negative - Negative 3258) POCT U UROBILI (test code = 0.2 mg/dl 0.2-1 3260) POCT U BILI (test code = negative Negative - Negative 3261) POCT U BLD (test code = 3257) small Negative - Negative POCT U COLOR (test code = Valentina 3266) POCT U APPEAR (test code = Cloudy 3267) [facility] With Differential/Reuxjdjw6293-98-39 00:00:00 Test Item Value Reference Range Interpretation Comments WBC (test code = 6690-2) 7.9 3.4-10.8 RBC (test code = 789-8) 4.64 4.14-5.80 Hemoglobin (test code = 718-7) 14.5 13.0-17.7 Hematocrit (test code = 4544-3) 43.5 37.5-51.0 MCV (test code = 787-2) 94 79-97 MCH (test code = 785-6) 31.3 26.6-33.0 MCHC (test code = 786-4) 33.3 31.5-35.7 RDW (test code = 788-0) 12.8 11.6-15.4 Platelets (test code = 777-3) 221 150-450 Neutrophils (test code = 770-8) 53 Not Estab. Lymphs (test code = 736-9) 32 Not Estab. Monocytes (test code = 5905-5) 10 Not Estab. Eos (test code = 713-8) 4 Not Estab. Basos (test code = 706-2) 1 Not Estab. Immature Cells (test code = UNLOINC) Neutrophils (Absolute) (test code = 4.2 1.4-7.0 751-8) Lymphs (Absolute) (test code = 731-0) 2.5 0.7-3.1 Monocytes(Absolute) (test code = 742-7) 0.8 0.1-0.9 Eos (Absolute) (test code = 711-2) 0.3 0.0-0.4 Baso (Absolute) (test code = 704-7) 0.1 0.0-0.2 Immature Granulocytes (test code = 0 Not Estab. 74369-4) Immature Grans (Abs) (test code = 0.0 0.0-0.1 60799-4) NRBC (test code = 06897-0) Hematology Comments: (test code = 92912-6) SARS-COV2/RT-PCR ([facility])2019-11-27 05:41:00 Test Item Value Reference Range Interpretation Comments SARS-COV2/RT-PCR (test code = Detected Not Detected, Negative A A 2298874) SARS-COV-2 PERFORMING LAB [facility] (test code = 2004115) Results are for the detection of SARS-CoV-2 [...] copies/mL.This SARS CoV-2 test is a rapid, zahq-ieliNW-QTH test intended for the qualitative detection of nucleic acid from SARS-CoV-2 in a nasopharyngeal swab specimen collected from individuals suspected of [...] 564(g) of the Act.Fact Sheet for Healthcare Providers:https://www.Jelastic/ Documents/Xpert%20Xpress%20SARS%20CoV-2/Fact%20Sheets/302-3802%30WUNR-TRN-0%20HE ALTHCARE%20PROVIDERS%20FACT%20SHEET.pdfFact Sheet for Healthcare Patients:https://www.Jelastic/Documents/Xpert%20Xpress %20SARS%20CoV-2/Fact%20Sheets/3023801%95BHBZ-WAW-7%20PATIENT%20FACT%20SHEET.pdf Performing Laboratory:[address].[place], [place] [address]RGBRZT [id number] 15:46:00 Test Item Value Reference Range Interpretation Comments Vitamin B12 Lvl (test code = Vitamin 707 724-6929 B12 Lvl) [facility] [id number] 15:46:00 Test Item Value Reference Range Interpretation Comments VITAMIN B1 (THIAMINE) WHOLE BLOOD (test 138 78-185 code = VITAMIN B1 (THIAMINE) WHOLE BLOOD) [facility] DistrictAepjdyrPVNSSGTDVR8635-65-69 15:46:00 Test Item Value Reference Range Interpretation Comments Sed Rate (test code = Sed Rate) 6 [facility]OgqwakqBJYXKADIQM0491-53-12 15:46:00 Test Item Value Reference Range Interpretation Comments C-REACTIVE PROTEIN (test code = 7.0 C-REACTIVE PROTEIN) [facility]NEM[facility] HKBMZ6402-72-95 15:46:00 Test Item Value Reference Range Interpretation Comments Vitamin B12 Lvl (test code = Vitamin 132 977-9608 B12 Lvl) [facility] [id number] 15:46:00 Test Item Value Reference Range Interpretation Comments VITAMIN B1 (THIAMINE) WHOLE BLOOD (test 138 78-185 code = VITAMIN B1 (THIAMINE) WHOLE BLOOD) [facility]IknezboHVOEWUXEHG5233-19-02 15:46:00 Test Item Value Reference Range Interpretation Comments Sed Rate (test code = Sed Rate) 6 [facility] CenterPxsbplcSAJDBNKRBI9939-63-84 15:46:00 Test Item Value Reference Range Interpretation Comments C-REACTIVE PROTEIN (test code = 7.0 C-REACTIVE PROTEIN) [facility]2019-10-28 15:46:00 Test Item Value Reference Range Interpretation Comments Vitamin B12 Lvl (test code = Vitamin 182 320-2320 B12 Lvl) [facility]2019-10-28 15:46:00 Test Item Value Reference Range Interpretation Comments VITAMIN B1 (THIAMINE) WHOLE BLOOD (test 138 78-185 code = VITAMIN B1 (THIAMINE) WHOLE BLOOD) [facility] RegionalQgqsxulSEPHIVJNWN1140-80-45 15:46:00 Test Item Value Reference Range Interpretation Comments Sed Rate (test code = Sed Rate) 6 [facility] CenterUqrkpcgXGFYFGFHHS0248-57-09 15:46:00 Test Item Value Reference Range Interpretation Comments C-REACTIVE PROTEIN (test code = 7.0 C-REACTIVE PROTEIN) [facility]2019-10-28 15:46:00 Test Item Value Reference Range Interpretation Comments Vitamin B12 Lvl (test code = Vitamin 213 722-1781 B12 Lvl) [facility]2019-10-28 15:46:00 Test Item Value Reference Range Interpretation Comments VITAMIN B1 (THIAMINE) WHOLE BLOOD (test 138 78-185 code = VITAMIN B1 (THIAMINE) WHOLE BLOOD) [facility] RegionalCfzrjdaAWJAECMCKZ9041-87-02 15:46:00 Test Item Value Reference Range Interpretation Comments Sed Rate (test code = Sed Rate) 6 [facility] CenterWfzxiskEROQBAPNLL7702-60-97 15:46:00 Test Item Value Reference Range Interpretation Comments C-REACTIVE PROTEIN (test code = 7.0 C-REACTIVE PROTEIN) [facility]2019-10-28 15:46:00 Test Item Value Reference Range Interpretation Comments Vitamin B12 Lvl (test code = Vitamin 800 078-0597 B12 Lvl) [facility]2019-10-28 15:46:00 Test Item Value Reference Range Interpretation Comments VITAMIN B1 (THIAMINE) WHOLE BLOOD (test 138 78-185 code = VITAMIN B1 (THIAMINE) WHOLE BLOOD) [facility] RegionalCfifwwzISSKSNLZRJ2212-39-77 15:46:00 Test Item Value Reference Range Interpretation Comments Sed Rate (test code = Sed Rate) 6 [facility] CenterRsozrhuRYXGCATYDI7756-15-47 15:46:00 Test Item Value Reference Range Interpretation Comments C-REACTIVE PROTEIN (test code = 7.0 C-REACTIVE PROTEIN) [facility]2019-10-28 15:46:00 Test Item Value Reference Range Interpretation Comments Vitamin B12 Lvl (test code = Vitamin 584 559-1862 B12 Lvl) [facility]2019-10-28 15:46:00 Test Item Value Reference Range Interpretation Comments VITAMIN B1 (THIAMINE) WHOLE BLOOD (test 138 78-185 code = VITAMIN B1 (THIAMINE) WHOLE BLOOD) [facility] RegionalGrweyiyIKUFTGIYHP4529-67-02 15:46:00 Test Item Value Reference Range Interpretation Comments Sed Rate (test code = Sed Rate) 6 [facility] CenterClqzgakKZDJUYAOOS3761-22-89 15:46:00 Test Item Value Reference Range Interpretation Comments C-REACTIVE PROTEIN (test code = 7.0 C-REACTIVE PROTEIN) [facility]2019-10-28 15:46:00 Test Item Value Reference Range Interpretation Comments Vitamin B12 Lvl (test code = Vitamin 553 342-1025 B12 Lvl) [facility]2019-10-28 15:46:00 Test Item Value Reference Range Interpretation Comments VITAMIN B1 (THIAMINE) WHOLE BLOOD (test 138 78-185 code = VITAMIN B1 (THIAMINE) WHOLE BLOOD) [id number] 15:46:00 Test Item Value Reference Range Interpretation Comments Sed Rate (test code = Sed Rate) 6 [id number] 15:46:00 Test Item Value Reference Range Interpretation Comments C-REACTIVE PROTEIN (test code = 7.0 C-REACTIVE PROTEIN) [facility]2019-10-28 15:46:00 Test Item Value Reference Range Interpretation Comments Vitamin B12 Lvl (test code = Vitamin [id number] B12 Lvl) [facility]2019-10-28 15:46:00 Test Item Value Reference Range Interpretation Comments VITAMIN B1 (THIAMINE) WHOLE BLOOD (test 138 78-185 code = VITAMIN B1 (THIAMINE) WHOLE BLOOD) [id number] 15:46:00 Test Item Value Reference Range Interpretation Comments Sed Rate (test code = Sed Rate) 6 [id number] 15:46:00 Test Item Value Reference Range Interpretation Comments C-REACTIVE PROTEIN (test code = 7.0 C-REACTIVE PROTEIN) [facility]2019-10-28 15:46:00 Test Item Value Reference Range Interpretation Comments Vitamin B12 Lvl (test code = Vitamin [id number] B12 Lvl) [facility]2019-10-28 15:46:00 Test Item Value Reference Range Interpretation Comments VITAMIN B1 (THIAMINE) WHOLE BLOOD (test 138 78-185 code = VITAMIN B1 (THIAMINE) WHOLE BLOOD) [id number] 15:46:00 Test Item Value Reference Range Interpretation Comments Sed Rate (test code = Sed Rate) 6 [facility] [id number] 15:46:00 Test Item Value Reference Range Interpretation Comments C-REACTIVE PROTEIN (test code = 7.0 C-REACTIVE PROTEIN) [facility]2019-10-28 15:46:00 Test Item Value Reference Range Interpretation Comments Vitamin B12 Lvl (test code = Vitamin [phone] B12 Lvl) [facility]2019-10-28 15:46:00 Test Item Value Reference Range Interpretation Comments VITAMIN B1 (THIAMINE) WHOLE BLOOD (test 138 78-185 code = VITAMIN B1 (THIAMINE) WHOLE BLOOD) [id number] 15:46:00 Test Item Value Reference Range Interpretation Comments Sed Rate (test code = Sed Rate) 6 [facility] [id number] 15:46:00 Test Item Value Reference Range Interpretation Comments C-REACTIVE PROTEIN (test code = 7.0 C-REACTIVE PROTEIN) [facility] Left 3 ViewFoot Left 3 View
[2022-08-11] MEDS ORDERED: ASPIRIN 81 MG CHEWABLE TABLET ONE (15:35)
[2022-08-11 15:36] LABS: Protime INR 1.07
[2022-08-11] MEDS ORDERED: MORPHINE 4 MG/ML SYR ONE ×2 (15:36→18:29)
[2022-08-11] MEDS ORDERED: ONDANSETRON 4 MG/2 ML VIAL ONE (15:36)
[2022-08-11 15:43] LABS: Absolute Lymphocytes (CBC) 1.4 K/uL (0.7-4.9); Hematocrit 40.5 % (39.6-49.0); Lymphocytes % 10.7 % (15.3-44.8); MCV 94.1 fL (80-100); MPV 7.8 fL (7.6-11.3)
[2022-08-11 15:51] LABS: Albumin 3.8 g/dL (3.4-5.0); Bilirubin Direct 0.2 mg/dL (0-0.2); Bilirubin Total 0.8 mg/dL (0.2-1.0); Potassium 4.1 mmol/L (3.5-5.1); Protein, Total 7.8 g/dL (6.4-8.2); Troponin High Sensitivity 3.8 pg/mL (<58.9)
[2022-08-11 16:11] LABS: SARS-COV-2 RT PCR NEGATIVE (NEGATIVE)
--- NOTE | 2022-08-11 17:03 | RAD REPORT ---
EXAM DESCRIPTION: May Single View08/11/2022 4:55 pm CLINICAL HISTORY: Chest pain COMPARISON: 2021 FINDINGS: The lungs appear clear of acute infiltrate. The heart is normal size IMPRESSION: No acute abnormalities displayed
[2022-08-11] MEDS ORDERED: NA CHLORIDE 0.9% 500 ML ONE (18:54)
[2022-08-11] MEDS ORDERED: VANCOMYCIN 500 MG/VIAL ONE (18:54)
[2022-08-11] MEDS ORDERED: VANCOMYCIN 1 GM/VIAL ONE (18:54)
--- NOTE | 2022-08-11 19:57 | RAD REPORT ---
EXAM DESCRIPTION: CT - Chest For Pe Angio - 08/11/2022 7:36 pm CLINICAL HISTORY: Chest pain COMPARISON: 2020 TECHNIQUE: Dynamically enhanced axial 3 mm thick images of the chest were obtained during administra tion of 100 mL Isovue 370 IV contrast. Coronal and oblique reconstruction images were generated and r eviewed. Exam utilizes a protocol for optimal evaluation of pulmonary arterial tree. Maximum intensity projections 3D imaging was utilized All CT scans are performed using dose optimization technique as appropriate and may include automated exposure control or mA/KV adjustment according to patient size. FINDINGS: The opacification of the pulmonary arteries is somewhat suboptimal. A gross pulmonary embo marbella is not seen A thoracic aortic aneurysm is not noted. A pleural effusion is not seen. A pericardial effusion is not seen. A lung consolidation is not present. IMPRESSION: No evidence of a pulmonary embolism
--- NOTE | 2022-08-11 20:03 | RAD REPORT ---
EXAM DESCRIPTION: CT - Abdomen Pelvis W Contrast - 08/11/2022 7:35 pm CLINICAL HISTORY: Abdominal pain COMPARISON: 2021 TECHNIQUE: Computed axial tomography of the abdomen pelvis was obtained. 100 cc Isovue-300 was admin istered intravenously. Oral contrast was not requested which limits evaluation of bowel and appendix All CT scans are performed using dose optimization technique as appropriate and may include automated exposure control or mA/KV adjustment according to patient size. FINDINGS: 2.8 centimeter hepatic cyst. Spleen, pancreas, and adrenals unremarkable. 2.4 centimeter left renal cyst unchanged. Small additional renal cysts. There is no evidence of diverticulitis. Mild to moderate prostatic enlargement Postsurgical changes lumbar spine. Small umbilical hernia. Small left inguinal hernia Mild scrotal skin and subcutaneous edema IMPRESSION: Mild scrotal skin and subcutaneous edema may indicate inflammation should be correlated clinically
--- NOTE | 2022-08-11 20:31 | ER ---
Nurse's Notes [facility] Name: Winston Garcia Age: 67 yrs Sex: Male : 1955 Arrival Date: 08/11/2022 Time: 14:48 Bed 12 Private MD: Diagnosis: Cellulitis of groin;Angina pectoris, unspecified Presentation: 08/11 14:48 Chief complaint: Patient states: Chest pain with SOB that began about an hour ago; also vg1 stated shakes and chills and difficulty taking a deep breath. Denies N/V. Coronavirus screen: Vaccine status: Patient reports receiving the 2nd dose of the covid vaccine. Client denies travel out of the [place] in the last 14 days. Ebola Screen: Patient negative for fever greater than or equal to 101.5 degrees Fahrenheit, and additional compatible Ebola Virus Disease symptoms Patient denies exposure to infectious person. Patient denies travel to an Ebola-affected area in the 21 days before illness onset. Initial Sepsis Screen: Does the patient meet any 2 criteria? RR > 20 per min. Does the patient have a suspected source of infection? No. Patient's initial sepsis screen is negative. Risk Assessment: Do you want to hurt yourself or someone else? Patient reports no desire to harm self or others. Onset of symptoms was August 11, 2022. 14:48 Method Of Arrival: Wheelchair vg1 14:48 Acuity: LOBITO 2 vg1 Triage Assessment: 14:53 General: Appears uncomfortable, Behavior is cooperative. Pain: Complains of pain in vg1 chest Pain radiates to right arm Pain currently is 6 out of 10 on a pain scale. Also complains of shortness of breath. Neuro: Level of Consciousness is awake, alert, obeys commands, Oriented to person, place, time, situation. Cardiovascular: Patient's skin is warm and dry. Respiratory: Reports shortness of breath at rest on exertion Airway is patent Respiratory effort is even, labored, Respiratory pattern is tachypnea Onset: The symptoms/episode began/occurred about an hour ago, the patient has moderate shortness of breath. Historical: - Allergies: 14:53 No Known Allergies; vg1 - Home Meds: 14:53 Lexapro Oral [Active]; Lipitor Oral [Active]; losartan Oral [Active]; sildenafil Oral vg1 [Active]; Zoloft Oral [Active]; - PMHx: 14:53 brain aneurysm; Hyperlipidemia; Hypertension; vg1 - Immunization history:: Client reports receiving the 2nd dose of the Covid vaccine. - Social history:: Smoking status: Patient denies any tobacco usage or history of. Screenin:23 [facility] ED Fall Risk Assessment (Adult) History of falling in the last 3 months, jl7 including since admission No falls in past 3 months (0 pts). Abuse screen: Denies threats or abuse. Denies injuries from another. Nutritional screening: No deficits noted. Tuberculosis screening: No symptoms or risk factors identified. Assessment: 15:30 General: Appears in no apparent distress. uncomfortable, Behavior is calm, cooperative, jl7 appropriate for age. Pain: Complains of pain in pelvis and chest Pain currently is 6 out of 10 on a pain scale. Neuro: Level of Consciousness is awake, alert, obeys commands, Oriented to person, place, time, situation. Cardiovascular: Rhythm is regular. Respiratory: Airway is patent Respiratory effort is even, unlabored, Respiratory pattern is regular, symmetrical, Breath sounds are clear bilaterally. Derm: Skin is pink, warm \\T\\ dry. 16:30 Reassessment: Patient appears in no apparent distress at this time. Patient and/or jl7 family updated on plan of care and expected duration. Pain level reassessed. Patient is alert, oriented x 3, equal unlabored respirations, skin warm/dry/pink. Patient states feeling better. : Reports Had a skin graft from left thigh to penis 1 month ago. 18:15 Reassessment: Patient appears in no apparent distress at this time. Patient and/or jl7 family updated on plan of care and expected duration. Pain level reassessed. Patient is alert, oriented x 3, equal unlabored respirations, skin warm/dry/pink. reports increased pain rated 8/10 at this time. See MAR for orders. 18:30 Reassessment:. : Swelling noted on penis on scrotum redness noted. jl7 19:00 Reassessment: Patient appears in no apparent distress at this time. Patient and/or jl7 family updated on plan of care and expected duration. Pain level reassessed. Patient is alert, oriented x 3, equal unlabored respirations, skin warm/dry/pink. Pain rated 2/10 at this time. Patient states feeling better. Patient states symptoms have improved. 21:57 General: "Can you please ask for something for pain? it wasn't too bad earlier but its as6 been getting worse . Vital Signs: 14:48 BP 148 / 91; Pulse 88; Resp 24; Temp 98.8(O); Pulse Ox 99% on R/A; Weight 145.15 kg; vg1 Height 6 ft. 3 in. (190.50 cm); Pain 6/10; 15:30 BP 143 / 82; Pulse 85; Resp 20; Pulse Ox 99% ; jl7 16:00 Pain 2/10; jl7 16:15 BP 107 / 67; Pulse 80; Resp 19; Pulse Ox 98% ; Pain 2/10; jl7 17:00 BP 124 / 69; Pulse 85; Resp 15; Pulse Ox 98% ; jl7 17:45 BP 104 / 68; Pulse 93; Resp 17; Pulse Ox 98% ; Pain 8/10; jl7 18:45 Pain 2/10; jl7 18:59 Pain 3/10; jl7 21:56 BP 125 / 67; Pulse 97; Resp 19 S; Temp 98.6(O); Pulse Ox 93% on R/A; as6 14:48 Body Mass Index 40.00 (145.15 kg, 190.50 cm) vg1 ED Course: 14:48 Patient arrived in ED. vg1 14:52 Ric Walker PA is PHCP. cp 14:52 Jeremiah Britton MD is Attending Physician. cp 14:53 Triage completed. vg1 14:53 Arm band placed on. vg1 15:30 Patient has correct armband on for positive identification. Placed in gown. Bed in low jl7 position. Call light in reach. Side rails up X 1. Client placed on continuous cardiac and pulse oximetry monitoring. NIBP monitoring applied. 15:30 Initial lab(s) drawn, by me, sent to lab. EKG done, by ED staff, reviewed by Ric HAAS COVID swab sent to lab. Flu and/or RSV swab sent to lab. Inserted saline lock: 20 gauge in right antecubital area, using aseptic technique. Blood collected. 15:46 Charlotte Ramos, ROSIE is Primary Nurse. 15:47 COVID-19/FLU A+B Sent. jl7 15:47 Lipase Sent. jl7 15:47 Basic Metabolic Panel Sent. jl7 15:47 Troponin HS Sent. jl7 15:47 PT-INR Sent. jl7 15:47 NT PRO-BNP Sent. jl7 15:47 Magnesium Sent. jl7 15:47 LFT's Sent. jl7 15:47 CBC with Diff Sent. jl7 18:19 D-Dimer Sent. jl7 18:19 LAB Add On Sent. jl7 19:10 First set of blood cultures drawn by me. jl7 19:17 Second set of blood cultures drawn by me. jl7 23:15 No provider procedures requiring assistance completed. Patient transferred, IV remains as6 in place. Administered Medications: 15:35 Drug: Aspirin Chewable Tablet 324 mg Route: PO; jl7 19:23 Follow up: Response: No adverse reaction jl7 15:35 Drug: morphine 4 mg Route: IVP; Infused Over: 4 mins; Site: right antecubital; jl7 16:00 Follow up: Pain 2/10 Adult; Response: No adverse reaction; Pain is decreased jl7 15:35 Drug: Zofran (Ondansetron) 4 mg Route: IVP; Site: right antecubital; jl7 19:24 Follow up: Response: No adverse reaction jl7 18:25 Drug: morphine 4 mg Route: IVP; Infused Over: 4 mins; Site: right antecubital; jl7 18:45 Follow up: Pain 2/10 Adult; Response: No adverse reaction; Pain is decreased jl7 18:59 Follow up: Pain 3/10 Adult; Response: No adverse reaction; Pain is decreased; RASS: [facility] Alert and Calm (0) 19:20 Drug: vancoMYCIN 1.5 grams Route: IVPB; Rate: calculated rate; Site: right antecubital; jl7 23:13 Follow up: Response: No adverse reaction; IV Status: Completed infusion; IV Intake: as6 250ml 21:56 Drug: Zosyn (piperacillin-tazobactam) 4.5 grams Route: IVPB; Infused Over: 60 mins; as6 Site: right antecubital; 23:14 Follow up: Response: No adverse reaction; IV Status: Completed infusion; IV Intake: as6 100ml 21:57 Drug: NS 0.9% 1000 ml Route: IV; Rate: 1 bolus; Site: right antecubital; as6 23:14 Follow up: Response: No adverse reaction; IV Status: Completed infusion; IV Intake: as6 1000ml 21:57 Drug: NS 0.9% 1000 ml Route: IV; Rate: 100 ml/hr; Site: right antecubital; as6 23:15 Follow up: Response: No adverse reaction; IV Status: Infusion continued upon transfer; as6 IV Intake: 100ml 22:08 Drug: fentaNYL (PF) 50 mcg Route: IVP; Site: right antecubital; as6 23:14 Follow up: Response: No adverse reaction as6 Medication: 19:23 VIS not applicable for this client. jl7 Intake: 23:13 IV: 250ml; Total: 250ml. as6 23:14 IV: 100ml; Total: 350ml. as6 23:14 IV: 1000ml; Total: 1350ml. as6 23:15 IV: 100ml; Total: 1450ml. as6 Outcome: 20:30 ER care complete, transfer ordered by MD. cp 23:15 Transferred by ground EMS to [facility], Transfer form completed. as6 X-rays sent w/ patient. 23:15 Condition: stable 23:15 Instructed on the need for transfer. 23:16 Patient left the ED. as6 Signatures: Charlotte Ramos, RN RN Ric Ren PA PA Blaze Ruelas RN RN jl7 Brooke Dimas RN RN vg1 Fabrice Hay RN RN as6 Corrections: (The following items were deleted from the chart) 19:24 18:59 vancoMYCIN 1.5 grams IVPB at calculated rate in right antecubital stephanie jl7
--- NOTE | 2022-08-11 20:31 | EDPHYS ---
Physician Documentation [facility] Name: Winston Garcia Age: 67 yrs Sex: Male : 1955 Arrival Date: 08/11/2022 Time: 14:48 Bed 12 Private MD: SHITAL Physician Jeremiah Britton HPI: 08/11 15:10 This 67 yrs old Male presents to ER via Wheelchair with complaints of Breathing cp Difficulty, Chest Pain. 15:10 The patient has shortness of breath at rest. cp 15:10 Onset: The symptoms/episode began/occurred 1 hour(s) ago. cp 15:10 Duration: The symptoms are continuous, and are unchanged since they started. The cp patient or guardian reports chest pain that is located primarily in the anterior chest wall, bilaterally. Onset: 1 hour(s) ago. 15:10 Patient reports going inside home and sitting down after being outside mowing yard on cp riding mower, he started having chest pain and shortness of breath. Patient reports history of penile surgery last month. Denies cough, denies fever. Patient reports going inside home and sitting down after being outside mowing yard on riding mower, he started having chest pain and shortness of breath. Patient reports history of penile surgery last month by DR Lamb \T\[facility] [place]. Denies cough, denies fever. Historical: - Allergies: 14:53 No Known Allergies; vg1 - Home Meds: 14:53 Lexapro Oral [Active]; Lipitor Oral [Active]; losartan Oral [Active]; sildenafil Oral vg1 [Active]; Zoloft Oral [Active]; - PMHx: 14:53 brain aneurysm; Hyperlipidemia; Hypertension; vg1 - Immunization history:: Client reports receiving the 2nd dose of the Covid vaccine. - Social history:: Smoking status: Patient denies any tobacco usage or history of. ROS: 15:15 Constitutional: Positive for chills, Negative for body aches, chills, fever, poor PO cp intake. 15:15 Eyes: Negative for injury, pain, redness, and discharge. cp 15:15 ENT: Negative for drainage from ear(s), ear pain, sinus pain, difficulty swallowing, difficulty handling secretions. 15:15 Cardiovascular: Positive for chest pain, Negative for palpitations. 15:15 Respiratory: Positive for shortness of breath, Negative for cough, wheezing. 15:15 Abdomen/GI: Negative for abdominal pain, vomiting, diarrhea, constipation. 15:15 Back: Negative for pain at rest, pain with movement. 15:15 : Negative for burning with urination, difficulty urinating. 15:15 Neuro: Negative for altered mental status, dizziness, headache, numbness, syncope, weakness. 15:15 All other systems are negative. Exam: 15:22 Constitutional: The patient appears in no acute distress, alert, awake, cp non-diaphoretic, non-toxic, well developed, well nourished, obese, uncomfortable. 15:22 Head/Face: Normocephalic, atraumatic. cp 15:22 Eyes: Periorbital structures: appear normal, Pupils: equal, round, and reactive to light and accomodation, Extraocular movements: intact throughout, Conjunctiva: normal, no exudate, no injection, Sclera: no appreciated abnormality, Lids and lashes: appear normal, bilaterally. 15:22 ENT: External ear(s): are unremarkable, Nose: is normal, Mouth: Lips: moist, Oral mucosa: pink and intact, moist, Posterior pharynx: is normal, airway is patent, no erythema, no exudate. 15:22 Neck: ROM/movement: is normal, is supple, without pain, no range of motions limitations, no meningismus. 15:22 Chest/axilla: Inspection: normal, Palpation: is normal, no crepitus, no tenderness. 15:22 Cardiovascular: Rate: normal, Rhythm: regular, Edema: ankle edema, that is very mild, JVD: is not appreciated. 15:22 Respiratory: the patient does not display signs of respiratory distress, Respirations: normal, no use of accessory muscles, no retractions, labored breathing, is not present, Breath sounds: are clear throughout, no decreased breath sounds, no stridor, no wheezing. 15:22 Abdomen/GI: Inspection: obese Bowel sounds: active, all quadrants, Palpation: abdomen is soft and non-tender, in all quadrants. 15:22 Back: pain, is absent, ROM is normal. 15:22 Skin: cellulitis, that is moderate, well demarcated, on the genitalia and scrotum and suprapubic area. 15:22 Neuro: Orientation: to person, place \T\ time. Mentation: is normal, Motor: moves all fours, strength is normal, Sensation: is normal. 15:27 ECG was reviewed by the Attending Physician. cp Vital Signs: 14:48 BP 148 / 91; Pulse 88; Resp 24; Temp 98.8(O); Pulse Ox 99% on R/A; Weight 145.15 kg; vg1 Height 6 ft. 3 in. (190.50 cm); Pain 6/10; 15:30 BP 143 / 82; Pulse 85; Resp 20; Pulse Ox 99% ; jl7 16:00 Pain 2/10; jl7 16:15 BP 107 / 67; Pulse 80; Resp 19; Pulse Ox 98% ; Pain 2/10; jl7 17:00 BP 124 / 69; Pulse 85; Resp 15; Pulse Ox 98% ; jl7 17:45 BP 104 / 68; Pulse 93; Resp 17; Pulse Ox 98% ; Pain 8/10; jl7 18:45 Pain 2/10; jl7 18:59 Pain 3/10; jl7 21:56 BP 125 / 67; Pulse 97; Resp 19 S; Temp 98.6(O); Pulse Ox 93% on R/A; as6 14:48 Body Mass Index 40.00 (145.15 kg, 190.50 cm) vg1 MDM: 15:02 Patient medically screened. cp 16:00 Differential diagnosis: Chronic Obstructive Pulmonary Disease abnormal EKG, acute cp myocardial infarction, acute pericarditis, congestive heart failure Myocardial Infarction pneumonia, Pneumothorax pulmonary edema, Pulmonary Embolism. 20:30 Data reviewed: vital signs, nurses notes, lab test result(s), EKG, radiologic studies, cp CT scan, plain films, I have discussed the patient's presentation/case with the attending Emergency Department Physician; and as a result, I will transfer patient. 20:30 Antibiotic administration: Vancomycin. The patient was given aspirin in the Emergency cp Department. I considered the following discharge prescriptions or medication management in the emergency department Medications were administered in the Emergency Department. See MAR. Care significantly affected by the following chronic conditions: Hypertension. Counseling: I had a detailed discussion with the patient and/or guardian regarding: the historical points, exam findings, and any diagnostic results supporting the discharge/admit diagnosis, the need to transfer to another facility, continuity of care. Response to treatment: the patient's symptoms have mildly improved after treatment. 21:10 ED course: consult with Dr Dickinson, plastic surgery \T\[facility] [place], will consult. cp 21:18 ED course: discussion with DR Sandoval, urology \T\[facility] [place], will consult on care. cp 21:45 ED course: accepting physician will be DR Higuera, hospitalist \T\[facility] after cp discussion of labs, exam, and radiology studies. 03 15:09 Order name: Basic Metabolic Panel cp 08/11 15:09 Order name: CBC with Diff cp 08/11 15:09 Order name: LFT's 08/11 15:09 Order name: Magnesium cp 08/11 15:09 Order name: NT PRO-BNP cp 08/11 15:09 Order name: PT-INR 08/11 15:09 Order name: Troponin HS cp 08/11 15:09 Order name: XRAY Chest (1 view) cp 08/11 15:09 Order name: EKG; Complete Time: 15:10 cp 08/11 15:09 Order name: Cardiac monitoring; Complete Time: 15:48 cp 08/11 15:09 Order name: EKG - Nurse/Tech; Complete Time: 15:48 cp 08/11 15:09 Order name: IV Saline Lock; Complete Time: 15:48 cp 08/11 15:09 Order name: Labs collected and sent; Complete Time: 15:48 cp 08/11 15:09 Order name: O2 Per Protocol; Complete Time: 15:48 cp 08/11 15:09 Order name: O2 Sat Monitoring; Complete Time: 15:48 cp 08/11 15:09 Order name: Lipase cp 08/11 15:09 Order name: COVID-19/FLU A+B cp 08/11 15:36 Order name: Protime (+INR); Complete Time: 16:07 EDMS 08/11 15:47 Order name: CBC with Automated Diff; Complete Time: 16:07 EDMS 08/11 16:08 Interpretation: Normal except: WBC 12.80; RBC 4.30; HGB 13.5; SHAYE% 78.2; LYM% 10.7; cp NEUT A 10.0. 08/11 15:52 Order name: Basic Metabolic Panel; Complete Time: 16:07 EDMS 08/11 18:21 Interpretation: Normal except: CL 108; GLUC 107; GFR 75. cp 08/11 15:52 Order name: Liver (Hepatic) Function; Complete Time: 16:07 EDMS 08/11 21:14 Interpretation: Normal except: GLOB 4.0; A/G 1.0. cp / 15:52 Order name: Troponin High Sensitivity; Complete Time: 16:07 EDMS 08/11 15:52 Order name: NT PRO-BNP; Complete Time: 16:07 EDMS 08/11 15:52 Order name: Magnesium; Complete Time: 16:07 EDMS 08/11 15:52 Order name: Lipase; Complete Time: 16:07 EDMS 08/11 16:09 Order name: LAB Add On cp 08/11 16:09 Order name: D-Dimer cp 08/11 16:11 Order name: COVID-19/FLU A+B; Complete Time: 18:03 EDMS 08/11 16:19 Order name: D-Dimer; Complete Time: 18:03 EDMS 08/11 17:03 Order name: RAD; Complete Time: 18:03 EDMS 08/11 18:04 Order name: CT Chest For PE Angio cp 08/11 18:20 Order name: CT Abd/Pelvis - IV Contrast Only cp 08/11 18:33 Order name: Lactate w/ 2H reflex if indic. cp 08/11 18:33 Order name: Blood Culture Adult (2) cp 08/11 19:57 Order name: CT; Complete Time: 20:25 EDMS 08/11 20:04 Order name: CT; Complete Time: 20:25 EDMS 08/11 20:26 Interpretation: Report reviewed. cp 08/11 20:59 Order name: Lactate w/ 2H reflex if indic.; Complete Time: 21:09 EDMS 08/11 21:35 Order name: Troponin High Sensitivity cp EC:27 Rate is 89 beats/min. Rhythm is regular. SC interval is normal. QRS interval is normal. cp QT interval is normal. T waves are Inverted in lead aVR. Interpreted by me. Reviewed by me. Administered Medications: 15:35 Drug: Aspirin Chewable Tablet 324 mg Route: PO; jl7 19:23 Follow up: Response: No adverse reaction [facility] 15:35 Drug: morphine 4 mg Route: IVP; Infused Over: 4 mins; Site: right antecubital; jl7 16:00 Follow up: Pain 2/10 Adult; Response: No adverse reaction; Pain is decreased jl7 15:35 Drug: Zofran (Ondansetron) 4 mg Route: IVP; Site: right antecubital; jl7 19:24 Follow up: Response: No adverse reaction jl7 18:25 Drug: morphine 4 mg Route: IVP; Infused Over: 4 mins; Site: right antecubital; jl7 18:45 Follow up: Pain 2/10 Adult; Response: No adverse reaction; Pain is decreased jl7 18:59 Follow up: Pain 3/10 Adult; Response: No adverse reaction; Pain is decreased; RASS: jl7 Alert and Calm (0) 19:20 Drug: vancoMYCIN 1.5 grams Route: IVPB; Rate: calculated rate; Site: right antecubital; jl7 23:13 Follow up: Response: No adverse reaction; IV Status: Completed infusion; IV Intake: as6 250ml 21:56 Drug: Zosyn (piperacillin-tazobactam) 4.5 grams Route: IVPB; Infused Over: 60 mins; as6 Site: right antecubital; 23:14 Follow up: Response: No adverse reaction; IV Status: Completed infusion; IV Intake: as6 100ml 21:57 Drug: NS 0.9% 1000 ml Route: IV; Rate: 1 bolus; Site: right antecubital; as6 23:14 Follow up: Response: No adverse reaction; IV Status: Completed infusion; IV Intake: as6 1000ml 21:57 Drug: NS 0.9% 1000 ml Route: IV; Rate: 100 ml/hr; Site: right antecubital; as6 23:15 Follow up: Response: No adverse reaction; IV Status: Infusion continued upon transfer; as6 IV Intake: 100ml 22:08 Drug: fentaNYL (PF) 50 mcg Route: IVP; Site: right antecubital; as6 23:14 Follow up: Response: No adverse reaction as6 Disposition Summary: 08/11/22 20:30 Transfer Ordered Transfer Location: [facility] cp Reason: Higher level of care cp Condition: Stable cp Problem: new cp Symptoms: have improved cp Accepting Physician: DR Higuera(08/11/22 23:16) as6 Diagnosis - Cellulitis of groin cp - Angina pectoris, unspecified cp Forms: - Medication Reconciliation Form cp - SBAR form cp Signatures: Dispatcher [employer] EDRic Chen PA PA cp Leal, Jahala RN RN jl7 Brooke Dimas RN RN vg1 Fabrice Hay, RN RN as6 Corrections: (The following items were deleted from the chart) 21:37 20:30 Doctor cp cp 21:37 20:30 Chest pain, unspecified cp cp 23:16 21:37 DR Higuera cp as6 08/12 22:51 03 15:10 Patient reports going inside home and sitting down after being outside cp mowing yard on riding mower, he started having chest pain and shortness of breath. Patient reports history of penile surgery last month. Denies cough, denies fever. cp
[2022-08-11] MEDS ORDERED: PIPERACIL/TAZO 4.5 GM VIAL IV ONE (21:05)
[2022-08-11] MEDS ORDERED: NA CHLORIDE 0.9% 100 ML ONE (21:05)
[2022-08-11] MEDS ORDERED: NA CHLORIDE 0.9% 2,000 ML ONE (21:54)
[2022-08-11] MEDS ORDERED: FENTANYL CITR 100 MCG/2 ML ONE (22:10)
[2022-08-11 23:34] VITALS: BP 125/67; TEMP 98.6; O2SAT 93
--- NOTE | 2022-08-12 16:39 | EKG ---
Test Date: 2022-08-11 Test Time: 15:20:46 Environmental Solutions Engineer: JOE MEASUREMENT RESULTS: Intervals: Rate: 89 HI: 144 QRSD: 86 QT: 366 QTc: 445 [place]: P: 43 HI: 144 QRS: 26 T: 47 INTERPRETIVE STATEMENTS: Normal sinus rhythm Inferior infarct, age undetermined Abnormal ECG Compared to ECG 08/27/2021 08:04:59 Myocardial infarct finding now present Electronically Signed On 08-12-22 16:36:29 VINYL INSTALLER by David Caceres
== END 2022-08-11 23:16 | disposition short-term general hospital (02) ==
LOC: ER 14:44
DX: I20.9 Angina pectoris, unspecified (principal); L03.314 Cellulitis of groin; I10 Essential (primary) hypertension; E78.5 Hyperlipidemia, unspecified
CPT/HCPCS: 96365; 93005; 87040 ×2; 85025; 80048; 36415; 83735; 85610; 85379; 80076; 83605; 84484 ×2; 83690; 83880; 0240U; 71275; 74177; 71045; 96375; 99285; 96366; Q9967; J3010; J3370; J7040; J7030; J2405

== ENCOUNTER 2023-06-21 18:39 | Inpatient (IN) | payer OTHER ==
[2023-06-21] MEDS ORDERED: MORPHINE 4 MG/ML SYR ONE ×3 (19:47→23:56)
[2023-06-21] MEDS ORDERED: ONDANSETRON 4 MG/2 ML VIAL ONE ×2 (19:47→21:36)
[2023-06-21 19:51] LABS: Absolute Lymphocytes (CBC) 1.6 K/uL (0.7-4.9); Hematocrit 39.9 % (39.6-49.0); Lymphocytes % 11.8 % (15.3-44.8); MPV 7.3 fL (7.6-11.3); Platelets 232 thou/uL (152-406); RBC Red Blood Cell Count 4.48 M/uL (4.33-5.43)
[2023-06-21 20:06] LABS: Protime INR 1.19
--- NOTE | 2023-06-21 20:08 | RAD REPORT ---
EXAM DESCRIPTION: May Single View06/21/2023 7:54 pm CLINICAL HISTORY: Congestion COMPARISON: August 2022 FINDINGS: The lungs appear clear of acute infiltrate. The heart is normal size IMPRESSION: No acute abnormalities displayed
[2023-06-21 20:25] LABS: Albumin 3.4 g/dL (3.4-5.0); Bilirubin Direct 0.1 mg/dL (0-0.2); Bilirubin Indirect, Calculated 0.5 mg/dL (0.2-0.8); Bilirubin Total 0.6 mg/dL (0.2-1.0); Potassium 4.2 mEq/L (3.5-5.1); Protein, Total 8.2 g/dL (6.4-8.2); Troponin High Sensitivity 4.5 pg/mL (<58.9)
[2023-06-21] MEDS ORDERED: ALBUTEROL 2.5 MG/3 ML NEB SOL ONE (21:35)
--- NOTE | 2023-06-21 22:24 | EDPHYS ---
Physician Documentation [facility] Name: Winston Garcia Age: 67 yrs Sex: Male : 1955 Arrival Date: 06/21/2023 Time: 18:39 Bed 7 Private MD: ED Physician Milind Peters HPI: 06/21 19:01 This 67 yrs old Black Male presents to ER via Unassigned with complaints of Breathing sp4 Difficulty. 19:03 This 67 yrs old Black Male presents to ER via Unassigned with complaints of Breathing sp4 Difficulty. 19:03 Allergies: No Known Allergies; Home Meds: 14:53 Lexapro Oral; Lipitor Oral; losartan sp4 Oral; sildenafil Oral; Zoloft Oral PMHx: brain aneurysm; Hyperlipidemia; Hypertension;. 22:17 67-year-old male presents with EMS for acute onset shortness of breath with associated sp4 midsternal stabbing chest pains. Patient states he is feeling unwell and pains began 2 hours prior to arrival. Patient denied orthopnea or fever. Patient has history of morbid obesity, brain aneurysm hypertension, history of scrotal cellulitis, history of syncope, history of hyperlipidemia. Last admission was 08/04/2021. Patient's medications include baclofen twice a day, gabapentin twice a day and loratadine twice a day metformin twice a day metoprolol twice a day tamsulosin daily had a feel daily and montelukast daily. Historical: - Allergies: 19:16 No Known Allergies; nj1 - PMHx: 19:16 brain aneurysm; Hyperlipidemia; Hypertension; nj1 - Immunization history:: Client reports receiving the 2nd dose of the Covid vaccine. - Social history:: Smoking status: Patient denies any tobacco usage or history of. - Family history:: not pertinent. ROS: 22:17 Constitutional: Negative for fever, chills, and weight loss, positive chest pain sp4 midsternal stabbing pain, positive shortness of breath. 22:17 All other systems are negative, Exam: 22:11 ECG was reviewed by the Attending Physician. EKG at 1922, sinus tachycardia at a rate sp4 of 101, otherwise normal EKG. 22:17 Constitutional: This is a well developed, well nourished patient who is awake, alert, sp4 bili obese male acute dyspnea on presentation . Head/Face: Normocephalic, atraumatic. Eyes: Pupils equal round and reactive to light, extra-ocular motions intact. Lids and lashes normal. Conjunctiva and sclera are not injected. Cornea within normal limits. Periorbital areas with no swelling, redness, or edema. ENT: Nares patent. No nasal discharge, no septal abnormalities noted. Tympanic membranes are normal and external auditory canals are clear. Oropharynx with no redness, swelling, or masses, exudates, or evidence of obstruction, uvula midline. Mucous membranes moist. Neck: Trachea midline, no thyromegaly or masses palpated, and no cervical lymphadenopathy. Supple, full range of motion without nuchal rigidity, or vertebral point tenderness. Chest/axilla: Normal chest wall appearance and motion. Nontender with no deformity. No lesions are appreciated. Cardiovascular: Regular rate and rhythm with a normal S1 and S2. No gallops, murmurs, or rubs. Normal PMI, no JVD. No pulse deficits. Respiratory: Lungs have equal breath sounds bilaterally, clear to auscultation and percussion. No rales, rhonchi or wheezes noted. No increased work of breathing, no retractions or nasal flaring. Abdomen/GI: Soft, non-tender, with normal bowel sounds. No distension or tympany. No guarding or rebound. No evidence of tenderness throughout. Back: No spinal tenderness. No costovertebral tenderness. There is sacral decubitus ulcer that is covered by the wound VAC. Skin: Warm, dry with normal turgor. Normal color with no rashes, no lesions, and no evidence of cellulitis. MS/ Extremity: Pulses equal, no cyanosis. Neurovascular intact. Full, normal range of motion. Neuro: Awake and alert, GCS 15, oriented to person, place, time, and situation. Cranial nerves II-XII grossly intact. Motor strength 5/5 in all extremities. Sensory grossly intact. Psych: Awake, alert, with orientation to person, place and time. Behavior, mood, and affect are within normal limits 23:20 : While in the emergency room patient reported scrotal redness and swelling. On sp4 examination patient has scrotal redness and swelling without identifiable fluid collections. This may be the source of elevated white count. Will order scrotal ultrasound. Will also order Vanco and Zosyn IV for scrotal and groin cellulitis, Vital Signs: 19:00 BP 161 / 87; Pulse 106; Resp 20; Temp 98.6(O); Pulse Ox 95% on R/A; Weight 147.42 kg nj1 (R); Height 6 ft. 3 in. ; 19:40 BP 158 / 85; Pulse 98; Resp 20; Pulse Ox 96% on R/A; km8 20:00 BP 154 / 75; Pulse 92; Pulse Ox 94% on R/A; km8 20:30 BP 135 / 72; Pulse 90; Resp 18; Pulse Ox 97% ; km8 21:56 BP 145 / 70; Pulse 87; Resp 18; Pulse Ox 100% ; bp 23:00 BP 141 / 82; Pulse 108; Resp 18; Pulse Ox 94% on R/A; km8 06/22 00:13 BP 117 / 71; Pulse 109; Resp 18; Pulse Ox 94% on R/A; km8 06/21 19:00 Body Mass Index 40.62 (147.42 kg, 190.5 cm) nj Lorenzo Coma Score: 06/21 19:40 Eye Response: spontaneous(4). Motor Response: obeys commands(6). Verbal Response: km8 oriented(5). Total: 15. MDM: 19:02 Patient medically screened. sp4 22:17 Differential diagnosis: Anemia Anxiety Reaction asthma, Bronchitis CHF exacerbation, sp4 Chronic Obstructive Pulmonary Disease Myocardial Infarction. Data reviewed: vital signs, nurses notes, EMS record, old medical records, lab test result(s), EKG, radiologic studies, plain films. ED course: Patient has clear chest x-ray, unremarkable EKG and negative troponin. COVID and influenza test is still pending. Patient has persistent chest pain for which she required IV morphine. Will also administer Robaxin for muscle soreness . Patient at this time warrants admission for evaluation for chest pain rule out ACS. Patient has stated that he cannot take aspirin secondary to prior gastric ulcers. . 06/22 03:23 ED course: Sono - EXAM: US Scrotum CLINICAL HISTORY: scrotal swelling and pain sp4 TECHNIQUE: Real-time ultrasound of the scrotum with color Doppler and image documentation. COMPARISON: No relevant prior studies available. 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 Left testicle: The left testis measures 5.4 x 2 x 3.6 cm. The parenchyma appears somewhat heterogeneous. Vascularity is demonstrated in the periphery. No torsion. Epididymides: Not well visualized. Scrotum: Generalized scrotal wall edema and thickening. Diffuse scrotal wall thickening/edema. No discrete drainable collection. IMPRESSION: Generalized scrotal wall edema and thickening which is nonspecific and can be seen in the clinical setting of superficial soft tissue infection. No discrete fluid collection. Somewhat heterogeneous appearance to the left testis with vascularity demonstrated in the periphery. This may be secondary to technical limitations due to the scrotal wall edema. Please correlate clinically for the possibility of intermittent torsion. THIS REPORT CONTAINS FINDINGS THAT MAYBE CRITICAL TO PATIENT CARE: The findings were verbally discussed via telephone conference with Dr. Milind Peters on 06/22/2023 12:21 AM [employer]. The results were acknowledged and understood.. 03:23 Antibiotic administration: Vancomycin IV, Zosyn IV . 06/21 19:04 Order name: BMP; Complete Time: :06/21 19:04 Order name: Blood Culture Adult (2) 06/21 19:04 Order name: CBC with Diff; Complete Time: 20:05 06/21 19:04 Order name: CPK; Complete Time: 21:06/21 19:04 Order name: Hepatic Function; Complete Time: 21:17 06/21 19:04 Order name: Lipase; Complete Time: 21:17 06/21 19:04 Order name: Magnesium; Complete Time: 21:17 06/21 19:04 Order name: NT PRO-BNP; Complete Time: 21:17 06/21 19:04 Order name: PT-INR; Complete Time: 21:17 06/21 19:04 Order name: Ptt, Activated; Complete Time: 21:17 06/21 19:04 Order name: Troponin HS; Complete Time: 21:06/21 19:13 Order name: Lactate w/ 2H reflex if indic.; Complete Time: 21:17 06/21 19:13 Order name: CRP; Complete Time: 21:06/21 21:18 Order name: COVID-19 SARS RT PCR; Complete Time: 23:19 06/21 21:18 Order name: Influenza Screen (a \T\ B); Complete Time: 23:19 sp4 06/21 21:18 Order name: Troponin High Sensitivity; Complete Time: 22:24 sp4 06/21 23:37 Order name: CBC with Automated Diff EDMS 06/21 23:37 Order name: CBC with Automated Diff EDMS 06/21 23:37 Order name: Comprehensive Metabolic Panel EDMS 06/21 23:37 Order name: Comprehensive Metabolic Panel EDMS 06/21 23:37 Order name: Lipid Profile EDMS 06/21 23:37 Order name: Lipid Profile EDMS 06/21 23:37 Order name: Troponin High Sensitivity EDMS 06/21 23:37 Order name: Troponin High Sensitivity EDMS 06/21 23:37 Order name: Troponin High Sensitivity EDMS 06/21 23:37 Order name: Troponin High Sensitivity EDMS 06/21 23:39 Order name: Hemoglobin A1c EDMS 06/21 23:39 Order name: Hemoglobin A1c EDMS 06/21 23:40 Order name: Vancomycin Level Trough EDMS 06/21 23:40 Order name: Vancomycin Peak EDMS 06/21 19:04 Order name: XRAY CXR (1 view); Complete Time: 21:17 4 06/21 23:20 Order name: US Scrotum Testicles sp4 06/21 19:04 Order name: EKG; Complete Time: 19:04 4 06/21 19:04 Order name: Cardiac monitoring; Complete Time: 19:51 4 06/21 19:04 Order name: EKG - Nurse/Tech; Complete Time: 19:52 [facility] 06/21 19:04 Order name: IV Saline Lock; Complete Time: 19:44 4 06/21 19:04 Order name: Labs collected and sent; Complete Time: 19:44 4 06/21 19:04 Order name: O2 Per Protocol; Complete Time: 19:44 4 06/21 19:04 Order name: O2 Sat Monitoring; Complete Time: 19:44 sp4 EC/13 22:11 Rate is 101 beats/min. Rhythm is regular, Sinus tachycardia. QRS [place] is Normal. MA sp4 interval is normal. QRS interval is normal. QT interval is normal. No Q waves. T waves are Normal. No ST changes noted. Clinical impression: No evidence of ischemia. Interpreted by me. Reviewed by me. Administered Medications: 19:51 Drug: morphine IVP or IV 4 mg IVP once over 4 mins Route: IVP; Infused Over: 4 mins; km8 Site: right antecubital; 20:32 Follow up: Response: No adverse reaction; Pain is decreased km8 19:51 Drug: Ondansetron IVP 4 mg IVP once; over 2 minutes Route: IVP; Site: right antecubital;km8 20:32 Follow up: Response: No adverse reaction km8 21:45 Drug: Albuterol Inhalation 2.5 mg Inhalation every 20 minutes x3 Route: Inhalation; bp 21:53 Drug: morphine IVP or IV 4 mg IVP once over 4 mins Route: IVP; Infused Over: 4 mins; bp Site: right antecubital; 22:10 Follow up: Response: No adverse reaction; Pain is decreased km8 21:53 Drug: Ondansetron IVP 4 mg IVP once; over 2 minutes Route: IVP; Site: right antecubital;bp 22:10 Follow up: Response: No adverse reaction; Pain is decreased km8 22:10 Drug: Albuterol Inhalation 2.5 mg Inhalation every 20 minutes x3 Route: Inhalation; km8 22:29 Drug: Methocarbamol PO 1500 mg PO once Route: PO; km8 23:41 Follow up: Response: No adverse reaction km8 22:47 Drug: Albuterol Inhalation 2.5 mg Inhalation every 20 minutes x3 Route: Inhalation; km8 23:49 Follow up: Response: No adverse reaction km8 23:48 Drug: Piperacillin-Tazobactam IVPB 3.375 grams IVPB once over 60 mins; (mix in NS 100 km8 mL) Route: IVPB; Infused Over: 60 mins; Site: right antecubital; 06/22 00:47 Follow up: IV Status: Infusion continued upon admission km8 00:12 Drug: vancoMYCIN IVPB 2 grams IVPB at calculated rate once Route: IVPB; Rate: km8 calculated rate; Site: left antecubital; 00:47 Follow up: IV Status: Infusion continued upon admission km8 00:12 Drug: morphine IVP or IV 4 mg IVP once over 4 mins Route: IVP; Infused Over: 4 mins; km8 Site: right antecubital; 00:47 Follow up: Response: No adverse reaction 8 00:12 Drug: metoCLOPramide IVP 10 mg IVP once; over 1 to 2 minutes Route: IVP; Site: right km8 antecubital; 00:47 Follow up: Response: No adverse reaction km8 Disposition Summary: 06/21/23 22:24 Hospitalization Ordered Notes: Hospitalization Status: Observation sp4 Provider: Martin Littlejohn sp4 Location: Telemetry/MedSurg (observation) sp4 Condition: Stable sp4 Problem: new sp4 Symptoms: have improved sp4 Bed/Room Type: Standard sp4 Room Assignment: 203(06/21/23 23:45) [id number] Diagnosis - Chest pain, unspecified sp4 - Angina pectoris, hypertension, sp4 Forms: - Medication Reconciliation Form sp4 - SBAR form sp4 - Leadership Thank You Letter sp4 Signatures: Dispatcher [employer] Hugo Allen RN RN Milind Miguel MD MD sp4 Sheila Viera RN RN [facility] [place] [id number] Julissa Jacobsen RN RN km8 Corrections: (The following items were deleted from the chart) 06/21 23:45 22:24 sp4 [id number]
--- NOTE | 2023-06-21 22:24 | ER ---
Nurse's Notes [facility] Name: Winston Garcia Age: 67 yrs Sex: Male : 1955 Arrival Date: 06/21/2023 Time: 18:39 Bed 7 Private MD: Diagnosis: Chest pain, unspecified;Angina pectoris, hypertension, Presentation: 06/21 19:00 Chief complaint: Patient states: Trouble breathing for the last 3 hours. [facility] 19:00 Method Of Arrival: Ambulatory [facility] 19:00 Coronavirus screen: Vaccine status: Patient reports receiving the 2nd dose of the covid nj1 vaccine. Ebola Screen: Patient denies travel to an Ebola-affected area in the 21 days before illness onset. Initial Sepsis Screen: Does the patient meet any 2 criteria? HR > 90 bpm. No. Patient's initial sepsis screen is negative. Does the patient have a suspected source of infection? No. Patient's initial sepsis screen is negative. Risk Assessment: Do you want to hurt yourself or someone else? Patient reports no desire to harm self or others. Onset of symptoms was June 21, 2023 at 16:00. 19:00 Acuity: LOBITO 2 nj1 Historical: - Allergies: 19:16 No Known Allergies; nj1 - PMHx: 19:16 brain aneurysm; Hyperlipidemia; Hypertension; nj1 - Immunization history:: Client reports receiving the 2nd dose of the Covid vaccine. - Social history:: Smoking status: Patient denies any tobacco usage or history of. - Family history:: not pertinent. Screenin:40 [facility] ED Fall Risk Assessment (Adult) History of falling in the last 3 months, km8 including since admission No falls in past 3 months (0 pts) Confusion or Disorientation No (0 pts) Intoxicated or Sedated No (0 pts) Impaired Gait No (0 pts) Mobility Assist Device Used No (0 pt) Altered Elimination No (0 pt) Score/Fall Risk Level 0 - 2 = Low Risk Oriented to surroundings, Maintained a safe environment, Educated pt \\T\\ family on fall prevention, incl call for assistance when getting out of bed, Assessed \\T\\ reinforced patient's understanding of fall precautions. Abuse screen: Denies threats or abuse. Denies injuries from another. Nutritional screening: No deficits noted. Tuberculosis screening: No symptoms or risk factors identified. Assessment: 19:40 General: Appears in no apparent distress. comfortable, Behavior is calm, cooperative, km8 appropriate for age. Pain: Complains of pain in chest Pain radiates to right arm Pain currently is 8 out of 10 on a pain scale. Pain began gradually. Neuro: Level of Consciousness is awake, alert, obeys commands, Oriented to person, place, time, situation, Reports dizziness, since "2007". Cardiovascular: Reports chest pain, Capillary refill < 3 seconds Patient's skin is warm and dry. Rhythm is sinus tachycardia. Respiratory: Airway is patent Respiratory effort is even, unlabored, Respiratory pattern is regular, symmetrical, Breath sounds are clear. GI: No signs and/or symptoms were reported involving the gastrointestinal system. : No signs and/or symptoms were reported regarding the genitourinary system. EENT: No signs and/or symptoms were reported regarding the EENT system. Derm: No signs and/or symptoms reported regarding the dermatologic system. Skin is intact, is healthy with good turgor, Skin is dry, Skin is pink, warm \\T\\ dry. normal, Skin temperature is warm. Musculoskeletal: No signs and/or symptoms reported regarding the musculoskeletal system. Circulation, motion, and sensation intact. Range of motion: intact in all extremities. 20:40 Reassessment: Patient appears in no apparent distress at this time. No changes from km8 previously documented assessment. Patient and/or family updated on plan of care and expected duration. Pain level reassessed. Patient is alert, oriented x 3, equal unlabored respirations, skin warm/dry/pink. 21:56 Reassessment: No changes from previously documented assessment. Patient is alert, bp oriented x 3, equal unlabored respirations, skin warm/dry/pink. 23:00 Reassessment: Patient appears in no apparent distress at this time. No changes from km8 previously documented assessment. Patient and/or family updated on plan of care and expected duration. Pain level reassessed. Patient is alert, oriented x 3, equal unlabored respirations, skin warm/dry/pink. 06/22 00:13 Reassessment: Patient appears in no apparent distress at this time. No changes from km8 previously documented assessment. Patient and/or family updated on plan of care and expected duration. Pain level reassessed. Patient is alert, oriented x 3, equal unlabored respirations, skin warm/dry/pink. Vital Signs: 06/21 19:00 BP 161 / 87; Pulse 106; Resp 20; Temp 98.6(O); Pulse Ox 95% on R/A; Weight 147.42 kg nj1 (R); Height 6 ft. 3 in. ; 19:40 BP 158 / 85; Pulse 98; Resp 20; Pulse Ox 96% on R/A; km8 20:00 BP 154 / 75; Pulse 92; Pulse Ox 94% on R/A; km8 20:30 BP 135 / 72; Pulse 90; Resp 18; Pulse Ox 97% ; km8 21:56 BP 145 / 70; Pulse 87; Resp 18; Pulse Ox 100% ; bp 23:00 BP 141 / 82; Pulse 108; Resp 18; Pulse Ox 94% on R/A; km8 06/22 00:13 BP 117 / 71; Pulse 109; Resp 18; Pulse Ox 94% on R/A; km8 06/21 19:00 Body Mass Index 40.62 (147.42 kg, 190.5 cm) nj1 [place] Coma Score: 06/21 19:40 Eye Response: spontaneous(4). Motor Response: obeys commands(6). Verbal Response: km8 oriented(5). Total: 15. ED Course: 18:40 Patient arrived in ED. rg4 18:46 Hugo Cortez, RN is Primary Nurse. bp 19:01 Milind Peters MD is Attending Physician. sp4 19:16 Triage completed. nj1 19:17 Arm band placed on. nj1 19:40 Patient has correct armband on for positive identification. Bed in low position. Call km8 light in reach. Side rails up X2. Client placed on continuous cardiac and pulse oximetry monitoring. NIBP monitoring applied. 19:40 No provider procedures requiring assistance completed. Patient maintains SpO2 km8 saturation greater than 95% on room air. 19:43 Inserted saline lock: 20 gauge in right antecubital area, using aseptic technique. km8 Blood collected. 19:56 XRAY CXR (1 view) In Process Unspecified. EDMS 22:23 Martin Littlejohn MD is Hospitalizing Provider. sp4 23:55 US Scrotum Testicles In Process Unspecified. EDMS 06/22 00:10 Inserted saline lock: 22 gauge in left antecubital area, using aseptic technique. km8 00:15 Provided Education on: admission process. 8 00:15 Patient admitted, IV remains in place. km8 Administered Medications: 06/21 19:51 Drug: morphine IVP or IV 4 mg IVP once over 4 mins Route: IVP; Infused Over: 4 mins; km8 Site: right antecubital; 20:32 Follow up: Response: No adverse reaction; Pain is decreased km8 19:51 Drug: Ondansetron IVP 4 mg IVP once; over 2 minutes Route: IVP; Site: right antecubital;km8 20:32 Follow up: Response: No adverse reaction km8 21:45 Drug: Albuterol Inhalation 2.5 mg Inhalation every 20 minutes x3 Route: Inhalation; bp 21:53 Drug: morphine IVP or IV 4 mg IVP once over 4 mins Route: IVP; Infused Over: 4 mins; bp Site: right antecubital; 22:10 Follow up: Response: No adverse reaction; Pain is decreased km8 21:53 Drug: Ondansetron IVP 4 mg IVP once; over 2 minutes Route: IVP; Site: right antecubital;bp 22:10 Follow up: Response: No adverse reaction; Pain is decreased km8 22:10 Drug: Albuterol Inhalation 2.5 mg Inhalation every 20 minutes x3 Route: Inhalation; km8 22:29 Drug: Methocarbamol PO 1500 mg PO once Route: PO; km8 23:41 Follow up: Response: No adverse reaction km8 22:47 Drug: Albuterol Inhalation 2.5 mg Inhalation every 20 minutes x3 Route: Inhalation; km8 23:49 Follow up: Response: No adverse reaction km8 23:48 Drug: Piperacillin-Tazobactam IVPB 3.375 grams IVPB once over 60 mins; (mix in NS 100 km8 mL) Route: IVPB; Infused Over: 60 mins; Site: right antecubital; 06/22 00:47 Follow up: IV Status: Infusion continued upon admission 8 00:12 Drug: vancoMYCIN IVPB 2 grams IVPB at calculated rate once Route: IVPB; Rate: km8 calculated rate; Site: left antecubital; 00:47 Follow up: IV Status: Infusion continued upon admission km8 00:12 Drug: morphine IVP or IV 4 mg IVP once over 4 mins Route: IVP; Infused Over: 4 mins; km8 Site: right antecubital; 00:47 Follow up: Response: No adverse reaction km8 00:12 Drug: metoCLOPramide IVP 10 mg IVP once; over 1 to 2 minutes Route: IVP; Site: right km8 antecubital; 00:47 Follow up: Response: No adverse reaction km8 Medication: 06/21 19:40 VIS not applicable for this client. km8 Outcome: 22:24 Decision to Hospitalize by Provider. sp4 06/22 00:26 Admitted to Med/surg accompanied by nurse, via stretcher, room 203, with chart, Report km8 called to ROSIE Carias Condition: stable Instructed on the need for admit, Demonstrated understanding of instructions, 00:48 Patient left the ED. km8 Signatures: Dispatcher [employer] EDDonna Del Angel rg4 Hugo Cortez, RN RN Milind Miguel MD MD sp4 Sheila Viera RN RN nj1 Julissa Jacobsen RN RN km8 Corrections: (The following items were deleted from the chart) 00:13 06/21 19:43 Inserted saline lock: 20 gauge in left antecubital area, using aseptic km8 technique. Blood collected. km8 06/22 00:38 00:26 Admitted to Med/surg accompanied by nurse, via stretcher, room 203, with chart, km8 km8
[2023-06-21] MEDS ORDERED: methocarbamoL 750 MG TAB ONE (22:27)
--- NOTE | 2023-06-21 23:23 | P.HP ---
Certification for Inpatient Patient admitted to: Inpatient With expected LOS: >2 Midnights Practitioner: I am a practitioner with admitting privileges, knowledge of patient current condition, hospital course, and medical plan of care. Services: Services provided to patient in accordance with Admission requirements found in Title 42 Section 412.3 of the Code of Federal Regulations Patient History Date of Service: 06/21/23 Reason for admission: CP/ Scrotal swelling History of Present Illness: 67 yo male with a past medical history of hypertension, borderline diabetes, history of brain aneurysm status post surgery, who came into the ER with chest pain. Chest pain is left-sided radiating to the right arm. Denies any fever or chills. Pressure-like feeling Denies any diaphoresis . At the time of interview pain is better Denies any shortness of breath. No fever or chills. No cough. No nausea vomiting or diarrhea. Patient also noted to have pain and swelling of scrotal sac which has been going on for last 4 to 5 days and has been progressively worsening The patient was assessed in the ER and was admitted for chest pain rule out ACS and scrotal cellulitis Allergies No Known Drug Allergies Allergy (Verified 08/03/21 21:57) Unknown Home medications list reviewed: Yes Home Medications: Baclofen [Lioresal*] 1 tab PO BID 10/07/20 Gabapentin [Neurontin*] 1 tab PO BID 10/07/20 Loratadine [Claritin*] 10 mg PO DAILY 10/07/20 Metformin HCl [Glucophage*] 1 tab PO BID 10/07/20 Metoprolol Tartrate [Lopressor*] 25 mg PO BID 6AM 6PM #60 tab 10/07/20 Tamsulosin HCl [Flomax] 1 cap PO DAILY 10/07/20 tadalafiL [Tadalafil] 1 tab PO DAILY 10/07/20 Montelukast [Singulair*] 1 tab PO DAILY 08/04/21 levoFLOXacin [Levaquin*] 750 mg PO DAILY #7 tab 08/08/21 - Past Medical/Surgical History Diabetic: Yes Past Medical History: Reviewed- Non-Contributory -: HTN -: BRAIN ANUERYSMS -: Borderline diabetes Past Surgical History: Reviewed- Non-Contributory -: Back surgery -: BRAIN SURGERY FOR ANEURYSMS -: Back surgery Psychosocial/ Personal History: Patient is retired, lives with his - Family History Family History: Reviewed- Non-Contributory - Family History Mother -: Cancer Notes: BREAST CANCER - Social History Smoking Status: Never smoker Alcohol use: Yes CD- Drugs: Yes Caffeine use: Yes Review of Systems 10-point ROS is otherwise unremarkable General: Weakness, Malaise Eyes: Unremarkable ENT: Unremarkable Respiratory: Unremarkable Cardiovascular: Chest Pain Gastrointestinal: Unremarkable Genitourinary: Other (Pain and swelling and discoloration of scrotal sac ) Musculoskeletal: Unremarkable Integumentary: Lesions Neurological: Unremarkable Lymphatics: Unremarkable Physical Examination - Vital Signs Temperature: 98.8 F Blood Pressure: 152/88 Pulse: 68 Respirations: 18 Pulse Ox (%): 98 - Physical Exam General: Alert, Oriented x3, Cooperative, Obese HEENT: Atraumatic, Normocephalic Neck: Supple Respiratory: Clear to auscultation bilaterally, Normal air movement Cardiovascular: Regular rate/rhythm, Normal S1 S2 Capillary refill: <2 Seconds Gastrointestinal: Soft and benign, W/out hepatosplenomegaly, No ascites Musculoskeletal: No clubbing, No swelling Integumentary: Rash(es), Tenderness/swelling, Erythema, Warmth, Other (scrotal cellulitis ) Neurological: Normal speech, Sensation intact, Cranial nerves 3-12 intact, Normal affect, Other (Alert, Awake ) Lymphatics: No axilla or inguinal lymphadenopathy External genitalia: Tenderness, Other (Erythema Scrotal sac ) - Studies Laboratory Data (last 24 hrs) 06/21/23 06/21/23 06/21/23 19:42 19:42 19:42 WBC 13.20 H Hgb 13.4 L Hct 39.9 Plt Count 232 PT 13.0 H INR 1.19 APTT 35.6 Sodium 135 L Potassium 4.2 BUN 13 Creatinine 1.20 Glucose 157 H Magnesium 2.0 Total Bilirubin 0.6 AST 18 ALT 29 Alkaline Phosphatase 112 Lipase 36 Microbiology Data (last 24 hrs): 06/21/23 20:05 Nasopharnyx Influenza Type A Antigen Screen - Final 06/21/23 20:05 Nasopharnyx Influenza Type B Antigen Screen - Final Male Exam - Male Exam Scrotum: Edema, Tenderness Assessment and Plan - Problems (Diagnosis) (1) Chest pain Onset Date: 05/16/15 Current Visit: No Status: Acute Plan: Chest pain to rule out ACS Monitor on telemetry Cardiac enzymes trended Started on aspirin and statin Will get a cardiology consult if cardiac enzymes are elevated Qualifiers: Chest pain type: unspecified Qualified Code(s): R07.9 - Chest pain, unspecified (2) Cellulitis of scrotum Current Visit: No Status: Acute Plan: Patient noted to have leukocytosis and elevated CRP Scrotal cellulitis noted Started on IV antibiotic Will get a scrotal ultrasound Will consult urology if ultrasound is suggestive of any abscess (3) HLD (hyperlipidemia) Current Visit: No Status: Chronic Plan: Continue statin Will get a lipid panel Diabetes Will Get an A1c Insulin Sliding Scale Obesity Advise lifestyle modification History of brain aneurysm status post surgery Monitor neuro vital signs closely Qualifiers: Hyperlipidemia type: mixed hyperlipidemia Qualified Code(s): E78.2 - Mixed hyperlipidemia (4) HTN (hypertension) Onset Date: 08/04/17 Current Visit: No Status: Chronic Plan: Continue home medications and titrate as needed GI/DVT prophylaxis Advanced directive full code Qualifiers: Hypertension type: primary hypertension Qualified Code(s): I10 - Essential (primary) hypertension Discharge Plan: Home Plan to discharge in: Greater than 2 days - Advance Directives Does patient have a Living Will: No Does patient have a Durable POA for Healthcare: No - Code Status/Comfort Care Code Status: Full Code Time Spent Managing Pts Care (In Minutes): 55
[2023-06-21] MEDS ORDERED: NA CHLORIDE 0.9% 250 ML ONE (23:27)
[2023-06-21] MEDS ORDERED: VANCOMYCIN 1 GM/VIAL ONE (23:27)
[2023-06-21] MEDS ORDERED: NA CHLORIDE 0.9% 100 ML ONE (23:28)
[2023-06-21] MEDS ORDERED: PIPERACIL/TAZO 3.375 GM VIAL IV ONE (23:28)
[2023-06-21] MEDS ORDERED: NA CHLORIDE 0.9% 1,000 ML IV SCH (23:45)
[2023-06-21] MEDS ORDERED: VANCOMYCIN 1 GM in NA CHLORIDE 0.9% 250 ML IVPB SCH (23:45)
[2023-06-21] MEDS ORDERED: METOCLOPRAMIDE 10 MG/2mL INJ ONE (23:56)
[2023-06-22 01:17] VITALS: BMI 40.6
[2023-06-22 03:05] LABS: Absolute Lymphocytes (CBC) 1.1 K/uL (0.7-4.9); Hematocrit 38.4 % (39.6-49.0); Lymphocytes % 9.1 % (15.3-44.8); MCV 89.3 fL (80-100); MPV 7.8 fL (7.6-11.3); Platelets 236 thou/uL (152-406)
[2023-06-22 03:30] LABS: Albumin 3.2 g/dL (3.4-5.0); Bilirubin Total 0.9 mg/dL (0.2-1.0); Potassium 4.1 mEq/L (3.5-5.1); Protein, Total 7.4 g/dL (6.4-8.2)
[2023-06-22] MEDS: ACETAMINOPHEN 500 MG TAB PO PRN (05:06)
[2023-06-22] MEDS: MORPHINE 2 MG/ML SYR IV PRN ×5 (05:07→22:36)
[2023-06-22] MEDS ORDERED: ONDANSETRON 4 MG/2 ML VIAL IV PRN (06:00)
[2023-06-22] MEDS: INSULIN REGULAR (HUMAN) 100 UNIT/ML SQ SCH ×4 (07:30→20:52)
[2023-06-22] MEDS: CEFTRIAXONE 1,000 MG in NA CHLORIDE 0.9% 50 ML IVPB SCH (08:17)
[2023-06-22] MEDS: ASPIRIN EC 81 MG TAB PO SCH (08:17)
[2023-06-22] MEDS ORDERED: MICONAZOLE 2% TOPICAL 15 GM TOP SCH (12:35)
--- NOTE | 2023-06-22 12:42 | P.PN ---
Subjective Date of Service: 06/22/23 Chief Complaint: CP/ Scrotal swelling Patient reports intermittent chest pain. History of CABG He denies shortness of breath. Physical Examination - Vital Signs Temperature: 97.5 F Blood Pressure: 134/72 Pulse: 89 Respirations: 19 Pulse Ox (%): 93 - Physical Exam General: Alert, In no apparent distress, Oriented x3, Obese HEENT: Mucous membr. moist/pink Neck: Supple, JVD not distended Respiratory: Clear to auscultation bilaterally, Normal air movement Cardiovascular: Regular rate/rhythm, Normal S1 S2, Edema (Mild lower extremity edema) Gastrointestinal: Normal bowel sounds, Soft and benign, No tenderness Musculoskeletal: No tenderness Integumentary: No cyanosis, Erythema (Scrotum) Neurological: Normal strength at 5/5 x4 extr - Studies Laboratory Data (last 24 hrs) 06/21/23 06/21/23 06/21/23 19:42 19:42 19:42 WBC 13.20 H Hgb 13.4 L Hct 39.9 Plt Count 232 PT 13.0 H INR 1.19 APTT 35.6 Sodium 135 L Potassium 4.2 BUN 13 Creatinine 1.20 Glucose 157 H Magnesium 2.0 Total Bilirubin 0.6 AST 18 ALT 29 Alkaline Phosphatase 112 Lipase 36 Microbiology Data (last 24 hrs): 06/21/23 20:05 Nasopharnyx Influenza Type A Antigen Screen - Final 06/21/23 20:05 Nasopharnyx Influenza Type B Antigen Screen - Final Assessment And Plan - Current Problems (Diagnosis) (1) Chest pain, rule out acute myocardial infarction Current Visit: No Status: Acute (2) CAD (coronary artery disease) Current Visit: Yes Status: Acute (3) Cellulitis of scrotum Current Visit: No Status: Acute (4) HTN (hypertension) Onset Date: 08/04/17 Current Visit: No Status: Chronic Qualifiers: Hypertension type: primary hypertension Qualified Code(s): I10 - Essential (primary) hypertension - Plan Chest pain/history of coronary artery disease Chest pain is reproducible by palpation and likely noncardiac. Troponin trended negative. Analgesics as needed. Cardiac monitoring. Aspirin, Lipitor, beta-stefanie. Cellulitis of scrotum IV Rocephin and vancomycin PICC on miconazole for possible dermatitis. Mild leukocytosis Follow cultures. DVT prophylaxis: Lovenox
[2023-06-22] MEDS: TAMSULOSIN 0.4 MG SR CAP PO SCH (12:51)
[2023-06-22] MEDS: VANCOMYCIN 2 GM in NA CHLORIDE 0.9% 500 ML IVPB SCH (17:25)
[2023-06-22] MEDS: ENOXAPARIN 40 MG/0.4 ML SQ SCH (17:25)
[2023-06-22] MEDS: MICONAZOLE 2% TOPICAL 15 GM TOP SCH (20:00)
[2023-06-22] MEDS: METOPROLOL TAR 25 MG TAB PO SCH (20:01)
[2023-06-22] MEDS: MONTELUKAST 10 MG TAB PO SCH (20:01)
[2023-06-22] MEDS: ATORVASTATIN 40 MG TAB PO SCH (20:01)
[2023-06-23] MEDS: MORPHINE 2 MG/ML SYR IV PRN ×5 (04:09→22:36)
[2023-06-23] MEDS ORDERED: ONDANSETRON 4 MG/2 ML VIAL IV PRN (06:00)
[2023-06-23] MEDS: INSULIN REGULAR (HUMAN) 100 UNIT/ML SQ SCH ×4 (07:30→21:00)
[2023-06-23 07:53] LABS: Absolute Lymphocytes (CBC) 1.5 K/uL (0.7-4.9); Hematocrit 35.7 % (39.6-49.0); Lymphocytes % 22.5 % (15.3-44.8); MCV 88.4 fL (80-100); MPV 7.5 fL (7.6-11.3); Platelets 182 thou/uL (152-406); RBC Red Blood Cell Count 4.05 M/uL (4.33-5.43)
[2023-06-23] MEDS: MICONAZOLE 2% TOPICAL 15 GM TOP SCH ×2 (09:00→20:44)
[2023-06-23] MEDS: ASPIRIN EC 81 MG TAB PO SCH (09:23)
[2023-06-23] MEDS: TAMSULOSIN 0.4 MG SR CAP PO SCH (09:23)
[2023-06-23] MEDS: METOPROLOL TAR 25 MG TAB PO SCH ×2 (09:23→20:43)
[2023-06-23] MEDS: CEFTRIAXONE 1,000 MG in NA CHLORIDE 0.9% 50 ML IVPB SCH (09:23)
--- NOTE | 2023-06-23 11:40 | RAD REPORT ---
EXAM DESCRIPTION: US - Scrotum Testicles - 06/21/2023 11:53 pm CLINICAL HISTORY: Scrotal swelling and pain TECHNIQUE: Real-time ultrasound of the scrotum with color Doppler and image documentation. COMPARISON: No relevant prior studies available. 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 Left testicle: The left testis measures 5.4 x 2 x 3.6 cm. The parenchyma appears somewhat heterogen eous. Vascularity is demonstrated in the periphery. No torsion. Epididymides: Not well visualized. Scrotum: Generalized scrotal wall edema and thickening. Diffuse scrotal wall thickening/edema. No discrete drainable collection. IMPRESSION: Generalized scrotal wall edema and thickening which is nonspecific and can be seen in th e clinical setting of superficial soft tissue infection. No discrete fluid collection. Somewhat heter ogeneous appearance to the left testis with vascularity demonstrated in the periphery. This may be se condary to technical limitations due to the scrotal wall edema. Please correlate clinically for the p ossibility of intermittent torsion. THIS REPORT CONTAINS FINDINGS THAT MAY BE CRITICAL TO PATIENT CARE: The findings were verbally discus sed via telephone conference with Dr. Milind Peters on 06/22/2023 12:21 AM TALENT DEVELOPMENT DIRECTOR. The results were ac knowledged and understood. Electronically signed by: Suzi Castano MD 06/22/2023 12:22 AM TALENT DEVELOPMENT DIRECTOR Due to temporary technical issues with the PACS/Fluency reporting system, reports are being signed by the in house radiologists without review as a courtesy to insure prompt reporting. The interpreting radiologist is fully responsible for the content of the report
[2023-06-23] MEDS: VANCOMYCIN 2 GM in NA CHLORIDE 0.9% 500 ML IVPB SCH (12:49)
--- NOTE | 2023-06-23 13:24 | P.PN ---
Subjective Date of Service: 06/23/23 Chief Complaint: CP/ Scrotal swelling Patient reports intermittent chest pain, worse with exertion, associated shortness of breath with exertion He reported burning pain in the mons pubis area and scrotum. Physical Examination - Vital Signs Temperature: 97.7 F Blood Pressure: 140/76 Pulse: 78 Respirations: 18 Pulse Ox (%): 92 - Physical Exam General: Alert, In no apparent distress, Oriented x3, Obese HEENT: Mucous membr. moist/pink Neck: Supple, JVD not distended Respiratory: Clear to auscultation bilaterally, Normal air movement Cardiovascular: Regular rate/rhythm, Normal S1 S2, Edema (Lower extremities) Gastrointestinal: Soft and benign, Non-distended Musculoskeletal: No swelling Integumentary: Other (Erythema-mons pubis area and scrotum.) Neurological: Normal strength at 5/5 x4 extr Assessment And Plan - Current Problems (Diagnosis) (1) Chest pain, rule out acute myocardial infarction Current Visit: No Status: Acute (2) CAD (coronary artery disease) Current Visit: Yes Status: Acute (3) Cellulitis of scrotum Current Visit: No Status: Acute (4) HTN (hypertension) Onset Date: 08/04/17 Current Visit: No Status: Chronic Qualifiers: Hypertension type: primary hypertension Qualified Code(s): I10 - Essential (primary) hypertension - Plan Chest pain/history of coronary artery disease Chest pain is reproducible by palpation but he reports CP is worse with exertion Troponin trended negative. Analgesics as needed. Cardiology consult Obtain echocardiogram On Aspirin, Lipitor, beta-stefanie. Stress test 2 years ago was reported as negative. Cellulitis of scrotum Continue IV Rocephin and vancomycin Placed on miconazole for possible fungal dermatitis. Leukocytosis resolved. Blood cultures: No growth to date. DVT prophylaxis: Lovenox
[2023-06-23] MEDS: PIPER TAZO 3.375 GM in NA CHLORIDE 0.9% 100 ML IV SCH ×2 (15:04→23:23)
[2023-06-23] MEDS: ENOXAPARIN 40 MG/0.4 ML SQ SCH (16:55)
--- NOTE | 2023-06-23 17:02 | EKG ---
Test Date: 2023-06-21 Test Time: 19:22:38 Military Technology Specialist: BP MEASUREMENT RESULTS: Intervals: Rate: 101 MI: 162 QRSD: 84 QT: 360 QTc: 466 [place]: P: 47 MI: 162 QRS: 6 T: 25 INTERPRETIVE STATEMENTS: Sinus tachycardia Inferior infarct, age undetermined Abnormal ECG Compared to ECG 08/11/2022 15:20:46 Sinus rhythm no longer present Myocardial infarct finding still present Electronically Signed On 06-23-23 16:57:34 DATA PROCESSING SYSTEMS CONSULTANT by David Caceres
--- NOTE | 2023-06-23 18:09 | CON ---
Date of Consultation: 06/23/2023 Reason For Consultation: Chest pain. History Of Present Illness: 67-year-old male, history of hypertension, diabetes, presented with left -sided chest pain, radiates to the left shoulder, sharp in nature, last for short period of time and also has some swelling, redness of the scrotum and found to have cellulitis of that location. Past Medical History: As outlined above in the HPI. Medications: Refer to reconciliation sheet for detailed list. Allergies: NO KNOWN DRUG ALLERGIES. Family History: No premature coronary artery disease or cancer. Social History: Does not smoke or drink. Does not use any drugs. Review of Systems: All systems reviewed and they were negative except as mentioned in the HPI. Physical Examination: Vital Signs: Reviewed. Head and Neck: Pupils are equal, reactive to light. Intact eye movements. No JVD. No cervical lym phadenopathy. Neck is supple. Thyroid is not enlarged. Lungs: Clear to auscultation bilaterally. No rhonchi, wheezing, or crackles. No accessory muscle u se. Heart: Regular rate and rhythm. No extra sounds. Abdomen: Soft, nontender. Bowel sounds positive. No organomegaly. No masses or hernia. No rigidi ty or rebound. Extremities: No edema, clubbing, or cyanosis. Intact pulses. Skin: No rash or nodule. Neurologic: Alert, awake, oriented x3. No acute focal deficits appreciated. Lymph Nodes: No cervical or axillary lymphadenopathy. Investigations: Troponins are negative. BUN 12, creatinine 0.89. Assessment And Recommendations: 1.Chest pain. Cardiac enzymes are negative and pain is atypical. Obtain an echocardiogram. Contin ue baby aspirin and recommend stress test as an outpatient once his cellulitis has completely cleared . 2.Dyslipidemia. Continue statin. 3.Hypertension. Blood pressure is controlled. 4.Scrotum cellulitis, on antibiotics. We will plan for cardiac evaluation once this infection is un blue good control. SR/MODL Voice ID: [id number] Report ID: [id number]
[2023-06-23] MEDS: ACETAMINOPHEN 500 MG TAB PO PRN (20:41)
[2023-06-23] MEDS: MONTELUKAST 10 MG TAB PO SCH (20:43)
[2023-06-23] MEDS: ATORVASTATIN 40 MG TAB PO SCH (20:43)
[2023-06-23] MEDS ORDERED: VANCOMYCIN 1.75 GM in NA CHLORIDE 0.9% 500 ML IVPB SCH (21:00)
[2023-06-24] MEDS: MORPHINE 2 MG/ML SYR IV PRN ×5 (03:58→20:40)
[2023-06-24] MEDS: PIPER TAZO 3.375 GM in NA CHLORIDE 0.9% 100 ML IV SCH ×3 (06:00→22:32)
[2023-06-24 06:47] LABS: Absolute Lymphocytes (CBC) 1.8 K/uL (0.7-4.9); Hematocrit 35.4 % (39.6-49.0); Lymphocytes % 25.3 % (15.3-44.8); MCV 88.8 fL (80-100); MPV 7.7 fL (7.6-11.3); Platelets 184 thou/uL (152-406); RBC Red Blood Cell Count 3.99 M/uL (4.33-5.43)
[2023-06-24 06:51] LABS: Potassium 3.9 mEq/L (3.5-5.1)
[2023-06-24] MEDS: INSULIN REGULAR (HUMAN) 100 UNIT/ML SQ SCH ×4 (07:30→20:47)
--- NOTE | 2023-06-24 08:06 | P.PN ---
Date of Service: 06/24/23 Subjective: feels about same, maybe slight improvement in scrotal pain no drainage, no fever continues with chest discomfort intermittently ROS: 10 point ROS as noted above, otherwise negative Physical Exam: Gen: Alert, Oriented, NAD HEENT: Normal conjunctiva, sclera anicteric CV: Regular rate & rhythm, no pedal edema Pulm: nonlabored respirations on room air, clear bilaterally Abd: soft, nontender, nondistended : scrotal swelling with erythema and tenderness, mostly anterior scrotum Neuro: normal speech, normal affect Vitals Reviewed Problem List: Chest pain Hx of CAD Cellulitis of scrotum; with prior cellulitis and skin flap Hypertension Hyperlipidemia hx of brain aneurysm Chest pain Hx of CAD Chest pain was reportedly reproducible by palpation but reports pain is worse with exertion troponins negative, monitor on tele Cardiology consulted Echo ordered to eval EF / stenosis discussed with cardiology, recommending cardiac cath tomorrow pending schedule Continue aspirin, statin, metoprolol. PRN analgesics / antiemetics Cellulitis of scrotum Scrotum u/s (06/21): scrotal wall edema / thickening. No fluid collection. Somewhat heterogeneous appearance to the left testis with vascularity in the periphery Blood cx (06/21): NGTD Continue empiric zosyn (06/23-) Continue Miconazole, added 06/22 to cover possible fungal dermatitis. afebrile, leukocytosis resolved ID consulted Hypertension Hyperlipidemia hx of brain aneurysm Continue home medications as appropriate VTE: Lovenox Code: Full Dispo: Home ~ 2 days
[2023-06-24] MEDS: ASPIRIN EC 81 MG TAB PO SCH (08:53)
[2023-06-24] MEDS: TAMSULOSIN 0.4 MG SR CAP PO SCH (08:53)
[2023-06-24] MEDS: METOPROLOL TAR 25 MG TAB PO SCH ×2 (08:53→20:48)
[2023-06-24] MEDS: MICONAZOLE 2% TOPICAL 15 GM TOP SCH ×2 (08:55→20:44)
[2023-06-24] MEDS: ENOXAPARIN 40 MG/0.4 ML SQ SCH (17:17)
--- NOTE | 2023-06-24 17:17 | PN ---
Date of Progress Note: 06/24/2023 Subjective: Seen by bedside. Doing better. Still having chest pain, on and off, but his cardiac ex am is still negative. Review of Systems: Positive for chest pain on and off. No nausea, vomiting, or diarrhea. No abdominal pain. No dysuri a, polyuria, or urinary urgency. All other systems were reviewed, they were negative. Objective: Vital Signs: Reviewed. Head and Neck: Pupils are equal, reactive to light. Intact eye movements. No JVD. No cervical lym phadenopathy. Neck is supple. Thyroid is not enlarged. Lungs: Clear to auscultation bilaterally. No rhonchi, wheezing, or crackles. No accessory muscle u se. Heart: Regular rate and rhythm. No extra sounds. Abdomen: Soft, nontender. Bowel sounds positive. No organomegaly. No masses or hernia. No rigidi ty or rebound. Extremities: No edema, clubbing, or cyanosis. Intact pulses. Skin: No rash or nodule. Neurologic: Alert, awake, oriented x3. No acute focal deficits appreciated. Lymph Nodes: No cervical or axillary lymphadenopathy. Investigations: Labs were reviewed. Assessment And Recommendations: 1.Chest pain on and off. Plan for an exercise stress test tomorrow and based on the results, so katherine n for possible coronary angiogram afterwards. 2.Hypertension. Blood pressure is controlled. 3.Dyslipidemia. Continue statin. SR/MODL Voice ID: [id number] Report ID: [id number]
[2023-06-24] MEDS: MONTELUKAST 10 MG TAB PO SCH (20:44)
[2023-06-24] MEDS: ATORVASTATIN 40 MG TAB PO SCH (20:44)
[2023-06-25] MEDS: MORPHINE 2 MG/ML SYR IV PRN ×2 (01:10→20:05)
[2023-06-25 05:46] LABS: Magnesium 2.2 mg/dL (1.6-2.4); Potassium 3.8 mEq/L (3.5-5.1)
[2023-06-25] MEDS: PIPER TAZO 3.375 GM in NA CHLORIDE 0.9% 100 ML IV SCH ×3 (06:00→22:57)
--- NOTE | 2023-06-25 07:19 | ECHO ---
HEIGHT: 6 ft 3 in WEIGHT: 325 lb 0 oz DATE OF STUDY: 06/24/[address]: Sea Ludwig MD 2-DIMENSIONAL: YES M.MODE: YES DOPPLER: YES COLOR FLOW: YES TDS: YES PORTABLE: YES DEFINITY: BUBBLE STUDY: DIAGNOSIS: HISTORY OF CORONARY ARTERY BYPASS GRAFT WITH CHEST PAIN CARDIAC HISTORY: CATHERIZATION: YES SURGERY: YES PROSTHETIC VALVE: NO PACEMAKER: NO MEASUREMENTS (cm) DIASTOLIC (NORMALS) SYSTOLIC (NORMALS) IVSd 1.3 (0.6-1.2) LA Diam 2.6 (1.9-4.0) LVEF 66% LVIDd 3.1 (3.5-5.7) LVIDs 2.0 (2.0-3.5) %FS 35% LVPWd 1.4 (0.6-1.2) Ao Diam 3.3 (2.0-3.7) 2 DIMENSIONAL ASSESSMENT: RIGHT ATRIUM: NORMAL LEFT ATRIUM: NORMAL RIGHT VENTRICLE: NORMAL LEFT VENTRICLE: NORMAL TRICUSPID VALVE: MILD TRICUSPID REGURGITATION MITRAL VALVE: MILD MITRAL REGURGITATION PULMONIC VALVE: NORMAL AORTIC VALVE: NORMAL PERICARDIAL EFFUSION: NONE AORTIC ROOT: NORMAL LEFT VENTRICULAR WALL MOTION: NORMAL DOPPLER/COLOR FLOW: SEE BELOW COMMENTS: 1. NORMAL LEFT VENTRICULAR EJECTION FRACTION 60-65% 2. NORMAL WALL MOTION 3. GRADE I DIASTOLIC DYSFUNCTION 4. MILD MITRAL REGURGITATION 5. MILD TRICUSPID REGURGITATION TECHNOLOGIST: TYLER OLIVER
[2023-06-25] MEDS: INSULIN REGULAR (HUMAN) 100 UNIT/ML SQ SCH ×4 (07:30→20:15)
--- NOTE | 2023-06-25 07:37 | P.PN ---
Date of Service: 06/25/23 Subjective: feels scrotal pain slowly improving. +erythema/swelling improving chest tightness / pressure ~same plan for tentative heart cath today afebrile. No drainage ROS: 10 point ROS as noted above, otherwise negative Physical Exam: Gen: Alert, Oriented, NAD HEENT: Normal conjunctiva, sclera anicteric CV: Regular rate & rhythm, no pedal edema Pulm: nonlabored respirations on room air, clear bilaterally Abd: soft, nontender, nondistended : scrotal swelling with erythema and tenderness, mostly anterior scrotum Neuro: normal speech, normal affect Vitals Reviewed Problem List: Chest pain Hx of CAD Cellulitis of scrotum; with prior cellulitis and skin flap Hypertension Hyperlipidemia hx of brain aneurysm Chest pain Hx of CAD Chest pain was reportedly reproducible by palpation but reports pain is worse with exertion troponins negative, monitor on tele Cardiology consulted Echo (06/24): 66% EF, grade I diastolic dysfunction, mild MR/TR NPO for tentative heart cath today (06/25) Continue aspirin, statin, metoprolol. PRN analgesics / antiemetics Cellulitis of scrotum; with prior cellulitis and skin flap Scrotum u/s (06/21): scrotal wall edema / thickening. No fluid collection. Somewhat heterogeneous appearance to the left testis with vascularity in the periphery Blood cx (06/21): NGTD Continue empiric zosyn (06/23-) Continue Miconazole, added 06/22 to cover possible fungal dermatitis. afebrile, leukocytosis resolved CRP elevated (06/25) ID consulted Hypertension Hyperlipidemia hx of brain aneurysm Continue home medications as appropriate VTE: Lovenox Code: Full Dispo: Home ~ 2 days Pending heart cath, ID recommendations
[2023-06-25] MEDS: ASPIRIN EC 81 MG TAB PO SCH (08:19)
[2023-06-25] MEDS: TAMSULOSIN 0.4 MG SR CAP PO SCH (08:19)
[2023-06-25] MEDS: MICONAZOLE 2% TOPICAL 15 GM TOP SCH ×2 (08:19→20:15)
[2023-06-25] MEDS: METOPROLOL TAR 25 MG TAB PO SCH ×2 (08:19→20:15)
--- NOTE | 2023-06-25 10:09 | P.CNS ---
Date of Consult: 06/25/23 Reason for Consult: scrotal infection Chief Complaint: CP/ Scrotal swelling History of Present Illness: Patient is a 67 yo male with a past medical history of hypertension and prediabetes who presented to the ED with complaints of chest pain radiating to right arm. He was also noted to have erythema, edema and tenderness of scrotum. He was started on empiric antibiotics for suspected scrotal cellulitis. Infectious disease was consulted. Allergies No Known Drug Allergies Allergy (Verified 08/03/21 21:57) Unknown Home medications list reviewed: Yes Home Medications: Baclofen [Lioresal*] 10 mg PO DAILY 06/22/23 Fluticasone Propionate [Flovent Diskus] 1 spray IH DAILY 06/22/23 Gabapentin [Neurontin*] 400 mg PO BID 06/22/23 Loratadine [Claritin*] 10 mg PO DAILY 06/22/23 Metformin ER [Glucophage ER*] 500 mg PO DAILY 06/22/23 Metoprolol Tartrate [Lopressor*] 25 mg PO BID 06/22/23 Montelukast [Singulair*] 10 mg PO BEDTIME 06/22/23 Tadalafil [Cialis] 5 mg PO PRN PRN 06/22/23 Tamsulosin [Flomax*] 2 cap PO DAILY 06/22/23 Tramadol HCl [Ultram] 50 mg PO Q8H PRN 06/22/23 - Past Medical/Surgical History Diabetic: Yes -: HTN -: BRAIN ANUERYSMS -: Borderline diabetes -: Back surgery -: BRAIN SURGERY FOR ANEURYSMS -: Back surgery Psychosocial/ Personal History: Patient is retired, lives with his - Family History Mother Medical History: Cancer Notes: BREAST CANCER - Social History Smoking Status: Unknown if ever smoked Alcohol use: Yes CD- Drugs: No Caffeine use: Yes Place of Residence: Home Review of Systems Cardiovascular: Chest Pain Genitourinary: Other (scrotal edema, erythema, tenderness) Physical Examination Temp Pulse Resp BP Pulse Ox 98.0 F 75 16 149/79 H 93 06/25/23 08:00 06/25/23 08:00 06/25/23 08:00 06/25/23 08:00 06/25/23 08:00 General: Alert, In no apparent distress, Oriented x3 HEENT: Atraumatic, Normocephalic Neck: Supple Respiratory: Clear to auscultation bilaterally, Normal air movement Cardiovascular: Regular rate/rhythm, Edema (BLE) Gastrointestinal: Normal bowel sounds, Soft and benign Neurological: Normal speech, Normal tone, Normal affect External genitalia: Edema, Tenderness Laboratory Data - Reviewed Microbiology Data - Reviewed Imagings Data: - Reviewed Conclusions/Impression: Problem List Cellulitis of Scrotum Chest pain Coronary Artery Disease Hypertension Hyperlipidemia Scrotal Cellulitis - improving - Prior history of scrotal resection with flap in 2022? - Scrotal Ultrasound 06/21: "Generalized scrotal wall edema and thickening. Diffuse scrotal wall thickening/edema. No discrete drainable collection." - Currently on Zosyn (06/23-). Received dose of Ceftriaxone 06/22 - Miconazole topical for coverage of fungal infection Afebrile >48 hours Leukocytosis resolved CRP 57 Recommendations - Scrotal cellulitis: Continue antibiotic therapy for 14 days. Currently on Zosyn, continue for now. Consider switch to Augmentin PO upon discharge to complete remainder of antibiotic course. - Continue Miconazole topical for 7-10 days to cover fungal infection - Monitor for worsening s/s of infection along with WBC and fever trends. Case discussed with Yahir Chan
[2023-06-25] MEDS ORDERED: LIDOCAINE 1% 20 ML MDV ONE (14:52)
[2023-06-25] MEDS ORDERED: HEPA 1000U/500MLS 2,000 UNIT/1,000 ML BAG IV ONE (14:52)
[2023-06-25] MEDS ORDERED: VERAPAMIL HCL 10 MG/4 ML VIAL IV ONE (15:45)
[2023-06-25] MEDS ORDERED: FENTANYL CITR 100 MCG/2 ML ONE (15:45)
[2023-06-25] MEDS ORDERED: ATROPINE SULF 1 MG/10 ML SYR IV ONE (15:45)
[2023-06-25] MEDS ORDERED: MIDAZOLAM HCL 2 MG/2 ML INJ ONE (15:45)
[2023-06-25] MEDS ORDERED: TICAGRELOR 90 MG TABLET PO ONE (15:46)
[2023-06-25] MEDS ORDERED: HEPARIN 10,000 UNIT/10 ML VIAL IV ONE (15:46)
[2023-06-25] MEDS ORDERED: HEPARIN 5000 UNIT/ML 1 ML VIAL ONE (15:46)
[2023-06-25] MEDS ORDERED: ASPIRIN 325 MG TAB ONE (15:47)
[2023-06-25] MEDS ORDERED: CLOPIDOGREL 75 MG TABLET ONE (15:47)
[2023-06-25] MEDS ORDERED: NA CHLORIDE 0.9% 500 ML ONE (15:50)
[2023-06-25] MEDS: ENOXAPARIN 40 MG/0.4 ML SQ SCH (16:41)
--- NOTE | 2023-06-25 18:06 | PN ---
Date of Progress Note: 06/25/2023 Subjective: Seen by bedside. Continues to have chest pains on and off. No shortness of breath. No nausea, vomiting, or diarrhea. All other systems were reviewed, they were negative. Objective: Vital Signs: Reviewed. Head and Neck: Pupils are equal, reactive to light. Intact eye movements. No JVD. No cervical lym phadenopathy. Neck is supple. Thyroid is not enlarged. Lungs: Clear to auscultation bilaterally. No rhonchi, wheezing, or crackles. No accessory muscle u se. Heart: Regular rate and rhythm. No extra sounds. Abdomen: Soft, nontender. Bowel sounds positive. No organomegaly. No masses or hernia. No rigidi ty or rebound. Extremities: No edema, clubbing, or cyanosis. Intact pulses. Skin: No rash or nodule. Neurologic: Alert, awake, oriented x3. No acute focal deficits appreciated. Investigations: Labs were reviewed. Assessment And Recommendations: 1.Chest pain, new onset, was suggestive of unstable angina and did coronary angiogram. His coronary arteries are normal. His pain is not cardiac. No further cardiac workup is needed, and Cardiology will sign off. 2.Hypertension. Blood pressure is controlled. Continue current management. SR/MODL Voice ID: [id number] Report ID: [id number]
--- NOTE | 2023-06-25 18:30 | OP ---
Date of Procedure: 06/25/2023 Surgeon: BANDAR SHANKS Procedure Performed: Selective coronary angiogram. Indication: Unstable angina. Access: Right radial artery 6-Bengali closed with TR band. Anesthesia: Total sedation time was 30 minutes. Complications: None. Bleeding: Less than 20 mL. Description Of Procedure: After risks, benefits, alternatives were explained, patient agreed to proc edure, and signed informed consent. Patient was brought into the cardiac catheterization laboratory, prepped and draped in the usual sterile fashion. Then I accessed right radial artery using [email or web address] micropuncture kit, placed a 6-Bengali Slender sheath, and took 5-Bengali [address] 4.0 catheter over a J- wire into the aortic root, engaged the left main, took standard views and then in the RCA, took stand adore views and then I removed the catheter and the sheath, placed TR band with good hemostasis. Findings: 1.Left main; very large and normal. 2.LAD; very large vessel, normal. Normal diagonal branches. 3.Left circumflex; large and codominant and normal. 4.RCA; large and codominant and normal. Conclusion: Normal coronary arteries. Recommendations: Search for other cause of chest pain. SR/MODL Voice ID: [id number] Report ID: [id number]
[2023-06-25] MEDS: MONTELUKAST 10 MG TAB PO SCH (20:05)
[2023-06-25] MEDS: ATORVASTATIN 40 MG TAB PO SCH (20:05)
[2023-06-26] MEDS: PIPER TAZO 3.375 GM in NA CHLORIDE 0.9% 100 ML IV SCH (05:15)
[2023-06-26 06:03] LABS: C-Reactive Protein 40.8 mg/L (<3.00); Potassium 3.9 mEq/L (3.5-5.1)
[2023-06-26] MEDS: INSULIN REGULAR (HUMAN) 100 UNIT/ML SQ SCH ×4 (07:30→20:13)
[2023-06-26] MEDS: ACETAMINOPHEN 500 MG TAB PO PRN (08:14)
[2023-06-26] MEDS: TAMSULOSIN 0.4 MG SR CAP PO SCH (08:14)
[2023-06-26] MEDS: MICONAZOLE 2% TOPICAL 15 GM TOP SCH ×2 (08:15→20:15)
[2023-06-26] MEDS: METOPROLOL TAR 25 MG TAB PO SCH ×2 (08:15→20:15)
[2023-06-26] MEDS: ASPIRIN EC 81 MG TAB PO SCH (08:15)
--- NOTE | 2023-06-26 09:13 | P.PN ---
Date of Service: 06/26/23 Subjective: IV pulled out overnight; had difficulty getting replaced s/p heart cath yesterday. no intervention required feels Chest pressure / tightness moderately improved; not completely gone yet denies much change regarding scrotum - states pain is about the same, he can't comment much on swelling and redness as he can't see it himself, no increased difficulty voiding afebrile ROS: 10 point ROS as noted above, otherwise negative Physical Exam: Gen: Alert, Oriented, NAD HEENT: Normal conjunctiva, sclera anicteric CV: Regular rate & rhythm, no pedal edema Pulm: nonlabored respirations on room air, clear bilaterally Abd: soft, nontender, nondistended : increased erythema and edema of inferior and posterior aspect of scrotum. 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 Underwent debulking with subsequent grafting at [facility] in 07/2022 and 02/2023 Scrotum u/s (06/21): scrotal wall edema / thickening. No fluid collection. Somewhat heterogeneous appearance to the left testis with vascularity in the periphery Blood cx (06/21): NGTD ID Following Previously on vanc / rocephin for ~1 day (06/22-06/23) then switched to zosyn (06/23-06/26) Switch zosyn (06/23-06/26) to cefepime / vanc given worsening scrotal erythema / edema (06/26) Continue antibiotic treatment for 2 weeks total per ID. repeat scrotal u/s (06/26): ordered eval for abscess / flow patient reports prior infxn and surgical procedures, vague on details. Able to get records on 06/26 given history/complexity and slight worsening, will consult urology patient does remain afebrile, CRP improving Continue Miconazole (06/22-); Added for empiric coverage of possible fungal dermatitis. continue antifungal for 7-10 days total per ID. Urology consulted (06/26) Chest pain Hx of CAD Elevated D-Dimer Chest pain was reportedly reproducible by palpation but reports pain was worse with exertion troponins negative; given concern for unstable angina and persistent symptoms, cardiology was consulted Echo (06/24): 66% EF, grade I diastolic dysfunction, mild MR/TR s/p heart cath (06/25): found to have normal coronary arteries. No intervention. No further cardiac work up. Continue aspirin, statin, metoprolol PRN analgesics / antiemetics Chest pressure / tightness moderately improved; not completely gone yet D-dimer 1158 (06/26), possible from lymphedema / cellulitis given chest pressure and some reported WHITE for 2-3 weeks, will check CTA CTA chest (06/26): ordered r/o PE No prior history of PE / DVT Hypertension Hyperlipidemia hx of brain aneurysm Continue home medications as appropriate VTE: Lovenox Code: Full Dispo: Home ~2 days Pending improvement of scrotal edema / erythema
[2023-06-26] MEDS ORDERED: VANCOMYCIN 2 GM in NA CHLORIDE 0.9% 500 ML IVPB ONE (10:35)
[2023-06-26] MEDS: CEFEPIME 2 GM in NA CHLORIDE 0.9% 100 ML IV SCH ×2 (10:53→20:08)
--- NOTE | 2023-06-26 11:24 | RAD REPORT ---
EXAM DESCRIPTION: CT - Chest For Pe Angio - 06/26/2023 10:22 am CLINICAL HISTORY: r/o PE, WHITE, chest pressure COMPARISON: Chest For Pe Angio dated 08/11/2022; Chest For Pe Angio dated 10/07/2020; Chest For Pe Angio dated 08/01/2017; CTANGIO CHEST dated 05/15/2015; Chest Single View dated 06/21/2023; Abdomen Pelvis W Contrast dated 08/11/2022 TECHNIQUE: Thin axial CT images of the chest were obtained following administration of 100 mL Isovue 370 IV contrast. Multiplanar reconstructions, and maximum intensity projection reconstructions were generated and reviewed. Exam utilizes a protocol for optimal evaluation of pulmonary arterial tree. All CT scans are performed using dose optimization technique as appropriate and may include automated exposure control or mA/KV adjustment according to patient size. FINDINGS: Pulmonary arteries are normal. No emboli or other suspicious finding. No acute or signific ant aorta findings. No mass or infiltrate in the lung parenchyma. No pleural thickening or pleural effusion. No pneumotho rax. No abnormal mediastinal or hilar masses or lymphadenopathy seen. No chest wall mass or abnormal axill iary lymphadenopathy. Evaluation of the included upper abdominal structures reveals a stable 3.3 cm medial right liver lobe cyst. IMPRESSION: No evidence of acute central pulmonary emboli. No other acute pulmonary process.
[2023-06-26] MEDS: MORPHINE 2 MG/ML SYR IV PRN ×3 (11:31→20:28)
--- NOTE | 2023-06-26 13:44 | RAD REPORT ---
EXAM DESCRIPTION: US - Scrotum Testicles - 06/26/2023 10:40 am CLINICAL HISTORY: eval for abscess and flow COMPARISON: Scrotum Testicles dated 06/21/2023 TECHNIQUE: Sonographic grayscale and color flow images of the scrotum were obtained. FINDINGS: The right prosthetic testicle demonstrates no adjacent fluid collections or other suspicio us abnormality. The left testicle measures 4.7 x 2.1 x 3.9 cm. No intratesticular masses or evidence of testicular to rsion. Left epididymis normal in size and appearance. Right epididymis is not visualized. No pathologic fluid collections. Skin thickening and mild subcutaneous tissue hypervascularity along the scrotum. IMPRESSION: Findings suggesting scrotal cellulitis. Prosthetic right testicle. No abnormalities of the left testis or epididymis.
--- NOTE | 2023-06-26 14:12 | P.PN ---
Chief Complaint: CP/ Scrotal swelling Subjective: Patient seen and examined in room. In no apparent distress. + scrotal pain/tenderness and edema Physical Examination Temp Pulse Resp BP Pulse Ox 97.6 F 73 16 155/87 H 95 06/26/23 08:00 06/26/23 08:15 06/26/23 08:00 06/26/23 08:15 06/26/23 08:00 General: Alert, In no apparent distress, Oriented x3 HEENT: Atraumatic, Normocephalic. Respiratory: Clear to auscultation bilaterally, Normal air movement Cardiovascular: Regular rate/rhythm. BLE edema. Gastrointestinal: Normal bowel sounds, Soft and benign Neurological: Normal speech, Normal tone, Normal affect External genitalia: Edema, Tenderness and erythema of scrotum. Laboratory Data - Reviewed Microbiology Data - Reviewed Imagings Data: - Reviewed Medication List: Reviewed Assessment and Plan Problem List Cellulitis of Scrotum Chest pain Coronary Artery Disease Hypertension Hyperlipidemia Scrotal Cellulitis - Prior history of scrotal/penile lymphedema with resection of lymphedema with grafting February 2023. - Scrotal Ultrasound 06/26: "Findings suggesting scrotal cellulitis. Prosthetic right testicle. No abnormalities of the left testis or epididymis. - Previously on Zosyn (06/23-06/26) - On Cefepime and Vancomycin (started 06/26) - Miconazole topical for coverage of fungal infection Afebrile Leukocytosis resolved Recommendations - Scrotal cellulitis: Continue antibiotic therapy for 14 days. Switched to Cefepime and Vancomycin, continue for now. Monitor for worsening s/s of infection. - Continue Miconazole topical for 7-10 days to cover fungal infection - Keep area clean and dry - Monitor WBC and fever trends Case discussed with Yahir Chan
[2023-06-26] MEDS: ENOXAPARIN 40 MG/0.4 ML SQ SCH (16:34)
[2023-06-26] MEDS: GABAPENTIN 400 MG CAP PO SCH (20:15)
[2023-06-26] MEDS: MONTELUKAST 10 MG TAB PO SCH (20:16)
[2023-06-26] MEDS: ATORVASTATIN 40 MG TAB PO SCH (20:27)
[2023-06-26] MEDS: VANCOMYCIN 1.75 GM in NA CHLORIDE 0.9% 500 ML IVPB SCH (20:48)
[2023-06-26] MEDS ORDERED: VANCOMYCIN 1.75 GM in NA CHLORIDE 0.9% 500 ML IVPB SCH (21:00)
[2023-06-27] MEDS: MORPHINE 2 MG/ML SYR IV PRN ×6 (00:47→22:27)
[2023-06-27 06:08] LABS: Absolute Lymphocytes (CBC) 1.9 K/uL (0.7-4.9); Hematocrit 35.2 % (39.6-49.0); Lymphocytes % 26.5 % (15.3-44.8); MCV 88.8 fL (80-100); MPV 7.1 fL (7.6-11.3); Platelets 215 thou/uL (152-406); RBC Red Blood Cell Count 3.96 M/uL (4.33-5.43)
[2023-06-27 06:20] LABS: C-Reactive Protein 21.7 mg/L (<3.00); Magnesium 2.2 mg/dL (1.6-2.4); Potassium 3.7 mEq/L (3.5-5.1)
[2023-06-27] MEDS: INSULIN REGULAR (HUMAN) 100 UNIT/ML SQ SCH ×4 (07:30→21:00)
--- NOTE | 2023-06-27 08:07 | P.PN ---
Date of Service: 06/27/23 Subjective: Feels scrotal pain is worse Scrotum looks more swollen. +more tender to touch today seen by Dr. Ann last night afebrile ROS: 10 point ROS as noted above, otherwise negative Physical Exam: Gen: Alert, Oriented, NAD HEENT: Normal conjunctiva, sclera anicteric CV: Regular rate & rhythm, no pedal edema Pulm: nonlabored respirations on room air, clear bilaterally Abd: soft, nontender, nondistended : Scrotum more erythematous / edematous. 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 Underwent debulking with subsequent grafting at [facility] in 07/2022 and 02/2023 Scrotum u/s (06/21): scrotal wall edema / thickening. No fluid collection. Somewhat heterogeneous appearance to the left testis with vascularity in the periphery repeat scrotal u/s (06/26): Scrotal cellulitis, Prosthetic right testicle. no abnormalities of the left testis or epididymis MRI pelvis w/contrast (06/27): ordered r/o abscess, fasciitis, hematoma Blood cx (06/21): No growth ID Following Continue Miconazole (06/22-); Added for empiric coverage of possible fungal dermatitis. continue for 7-10 days total per ID. Previously on vanc / rocephin for ~1 day (06/22-06/23) then switched to zosyn (06/23-06/26) Continue cefepime / vanc (06/26-), switched from zosyn 06/26 given worsening scrotal erythema / edema Continue antibiotic treatment for 2 weeks total per ID. afebrile, CRP improving, leukocytosis resolved patient reports prior infxn and surgical procedures, vague on details. Able to get records on (06/26) given history/complexity and slight worsening, Urology consulted (06/26) Seen by urology last night (06/26). Dr. Ann to review chart / past med records at [facility]. Chest pain Hx of CAD Elevated D-Dimer Chest pain was reportedly reproducible by palpation but reports pain was worse with exertion troponins negative; given concern for unstable angina and persistent symptoms, cardiology was consulted Echo (06/24): 66% EF, grade I diastolic dysfunction, mild MR/TR s/p heart cath (06/25): found to have normal coronary arteries. No intervention. No further cardiac work up. Continue aspirin, statin, metoprolol PRN analgesics / antiemetics Chest pressure / tightness moderately improved; not completely gone yet D-dimer 1158 (06/26), possible from lymphedema / cellulitis given chest pressure and some reported WHITE for 2-3 weeks, will check CTA CTA chest (06/26): no PE. no other acute pulmonary process No prior history of PE / DVT Hypertension Hyperlipidemia hx of brain aneurysm Continue home medications as appropriate VTE: Lovenox Code: Full Dispo: Home ~2 days Pending improvement of scrotal edema / erythema
[2023-06-27] MEDS: CEFEPIME 2 GM in NA CHLORIDE 0.9% 100 ML IV SCH ×2 (08:32→20:06)
[2023-06-27] MEDS: METOPROLOL TAR 25 MG TAB PO SCH ×2 (08:33→20:05)
[2023-06-27] MEDS: TAMSULOSIN 0.4 MG SR CAP PO SCH (08:33)
[2023-06-27] MEDS: GABAPENTIN 400 MG CAP PO SCH ×2 (08:33→20:05)
[2023-06-27] MEDS: MICONAZOLE 2% TOPICAL 15 GM TOP SCH ×2 (08:34→20:06)
[2023-06-27] MEDS: FLUTICASONE PROPIONATE 50 MCG IH SCH (08:34)
[2023-06-27] MEDS: ASPIRIN EC 81 MG TAB PO SCH (08:35)
--- NOTE | 2023-06-27 09:29 | P.PN ---
Date of Service: 06/27/23 Chief Complaint: CP/ Scrotal swelling Subjective: Patient seen and examined at bedside. In no apparent distress. No acute events overnight. + scrotal tenderness + scrotal edema and erythema Physical Examination Temp Pulse Resp BP Pulse Ox 96.9 F 67 18 148/84 H 97 06/27/23 08:00 06/27/23 08:33 06/27/23 08:00 06/27/23 08:33 06/27/23 08:00 General: Alert, In no apparent distress, Oriented x3 HEENT: Atraumatic, Normocephalic. Respiratory: Clear to auscultation bilaterally, Normal air movement Cardiovascular: Regular rate/rhythm. BLE edema. Gastrointestinal: Normal bowel sounds, Soft and benign Neurological: Normal speech, Normal tone, Normal affect External genitalia: Edema, Tenderness and erythema of scrotum. Laboratory Data - Reviewed Microbiology Data - Reviewed Imagings Data: - Reviewed Medication List: - Reviewed Assessment and Plan Problem List Cellulitis of Scrotum Chest pain Coronary Artery Disease Hypertension Hyperlipidemia Scrotal Cellulitis Prior history of scrotal/penile lymphedema with resection of lymphedema with grafting February 2023. - Scrotal ultrasound 06/21: "Generalized scrotal wall edema and thickening. Diffuse scrotal wall thickening/edema. No discrete drainable collection." - Previously on Zosyn (06/23-06/26). Switched to Cefepime and Vancomycin 06/26 given worsening scrotal erythema/edema. - Repeat Scrotal Ultrasound 06/26: "Findings suggesting scrotal cellulitis. Prosthetic right testicle. No abnormalities of the left testis or epididymis." - Miconazole topical for coverage of fungal infection Afebrile Leukocytosis resolved Recommendations - Scrotal cellulitis: Continue antibiotic therapy for 14 days. Continue Cefepime and vancomycin for now. Monitor for worsening s/s of infection. - MRI pelvis pending - Continue Miconazole topical for 7-10 days to cover fungal infection - Keep area clean and dry - Monitor WBC and fever trends Case discussed with Yahir Chan
[2023-06-27] MEDS: VANCOMYCIN 1.75 GM in NA CHLORIDE 0.9% 500 ML IVPB SCH ×2 (09:51→20:15)
[2023-06-27] MEDS: ACETAMINOPHEN 500 MG TAB PO PRN (17:07)
[2023-06-27] MEDS: ENOXAPARIN 40 MG/0.4 ML SQ SCH (17:08)
[2023-06-27] MEDS: ATORVASTATIN 40 MG TAB PO SCH (20:05)
[2023-06-27] MEDS: MONTELUKAST 10 MG TAB PO SCH (20:18)
--- NOTE | 2023-06-27 21:53 | RAD REPORT ---
EXAM DESCRIPTION: CT - Pelvis W/Cont - 06/27/2023 6:52 pm CLINICAL HISTORY: scrotal cellulitis, R/O abscess/hematoma/fasciitis COMPARISON: Pelvis Wo Cont dated 08/08/2020 TECHNIQUE: Thin cut axial CT imaging of the pelvis was performed following intravenous administratio n of 95 mL Isovue 300. Multiplanar reformats were generated and reviewed. All CT scans are performed using dose optimization technique as appropriate and may include automated exposure control or mA/KV adjustment according to patient size. FINDINGS: Pronounced subcutaneous edema with overlying skin thickening along the base and shaft of t he penis, as well as the scrotum, with no appreciable fluid collections, soft tissue gas, or sinus tr acts. Asymmetric film like enhancement along the tunica of the right more than left testicle, nonspec ific. Small to moderate left inguinal hernia containing fat. No dilated bowel loops or bowel wall thickening. No free air, free fluid or inflammatory stranding. N o hernia, mass or bulky lymphadenopathy. Moderate prostatomegaly with median lobe prominence within the bladder outlet. The urinary bladder is without significant finding. No suspicious bony findings. Sequelae of anterior L5-S1 fusion again seen. IMPRESSION: Findings suggestive of cellulitis along the base and shaft of the penis as well as the s crotum, without evidence of discrete fluid collections or soft tissue gas. Nonspecific asymmetric film like enhancement of the tunica. If there is clinical concern for orchitis or epididymitis, additional evaluation by scrotal ultrasound would be helpful. Prostatomegaly. Small to moderate left inguinal hernia containing fat.
[2023-06-28] MEDS: MORPHINE 2 MG/ML SYR IV PRN ×5 (03:51→20:32)
[2023-06-28] MEDS: INSULIN REGULAR (HUMAN) 100 UNIT/ML SQ SCH ×4 (07:30→20:27)
[2023-06-28] MEDS: TAMSULOSIN 0.4 MG SR CAP PO SCH (08:00)
[2023-06-28] MEDS: GABAPENTIN 400 MG CAP PO SCH ×2 (08:00→20:32)
[2023-06-28] MEDS: CEFEPIME 2 GM in NA CHLORIDE 0.9% 100 ML IV SCH ×2 (08:00→20:30)
[2023-06-28] MEDS: ASPIRIN EC 81 MG TAB PO SCH (08:00)
[2023-06-28] MEDS: FLUTICASONE PROPIONATE 50 MCG IH SCH (08:01)
[2023-06-28] MEDS: MICONAZOLE 2% TOPICAL 15 GM TOP SCH ×2 (08:02→20:34)
[2023-06-28 08:08] LABS: Absolute Lymphocytes (CBC) 1.7 K/uL (0.7-4.9); Hematocrit 35.5 % (39.6-49.0); Lymphocytes % 27.1 % (15.3-44.8); MCV 88.1 fL (80-100); Platelets 225 thou/uL (152-406); RBC Red Blood Cell Count 4.03 M/uL (4.33-5.43)
[2023-06-28 08:22] LABS: C-Reactive Protein 16.6 mg/L (<3.00)
[2023-06-28] MEDS: METOPROLOL TAR 25 MG TAB PO SCH ×2 (09:13→20:33)
[2023-06-28] MEDS: VANCOMYCIN 1.75 GM in NA CHLORIDE 0.9% 500 ML IVPB SCH ×2 (09:13→20:31)
--- NOTE | 2023-06-28 10:01 | P.PN ---
Date of Service: 06/28/23 Subjective: Scrotal erythema appears to be improving today on exam. +less indurated scrotum still very painful / tender today no acute events overnight afebrile ROS: 10 point ROS as noted above, otherwise negative Physical Exam: Gen: Alert, Oriented, NAD HEENT: Normal conjunctiva, sclera anicteric CV: Regular rate & rhythm, no pedal edema Pulm: nonlabored respirations on room air, clear bilaterally Abd: soft, nontender, nondistended : Scrotal erythema slight improved. 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) with h/o post-op complication of scrotal hematoma (2022) and cellulitis Patient noted to have hx of acquired buried penis syndrome. Underwent debulking with subsequent grafting at [facility] in 07/2022 and 02/2023 Scrotum u/s (06/21): scrotal wall edema / thickening. No fluid collection. Somewhat heterogeneous appearance to the left testis with vascularity in the periphery repeat scrotal u/s (06/26): Scrotal cellulitis, Prosthetic right testicle. no abnormalities of the left testis or epididymis CT pelvis (06/27): Scrotal cellulitis. No evidence of fluid collections. Nonspecific asymmetric film like enhancement of the tunica. prostatomegaly. small-mod inguinal hernia Blood cx (06/21): No growth ID Following Continue Miconazole (06/22-); Added for empiric coverage of possible fungal dermatitis. continue for 7-10 days total per ID. Previously on vanc / rocephin for ~1 day (06/22-06/23) then switched to zosyn (06/23-06/26) Continue cefepime / vanc (06/26-), switched from zosyn 06/26 given worsening scrotal erythema / edema Continue antibiotic treatment for 2 weeks total per ID. afebrile, CRP improving, leukocytosis resolved patient reports prior infxn and surgical procedures, vague on details. Able to get records on (06/26) given history/complexity and slight worsening, Urology consulted (06/26) Seen by urology (06/26). Dr. Ann to review chart / past med records at [facility]. Chest pain Hx of CAD Elevated D-Dimer Chest pain was reportedly reproducible by palpation but reports pain was worse with exertion troponins negative; given concern for unstable angina and persistent symptoms, cardiology was consulted Echo (06/24): 66% EF, grade I diastolic dysfunction, mild MR/TR s/p heart cath (06/25): found to have normal coronary arteries. No intervention. No further cardiac work up. Continue aspirin, statin, metoprolol PRN analgesics / antiemetics Chest pressure / tightness improved D-dimer 1158 (06/26), possible from lymphedema / cellulitis given chest pressure and some reported WHITE for 2-3 weeks, will check CTA CTA chest (06/26): no PE. no other acute pulmonary process No prior history of PE / DVT Hypertension Hyperlipidemia hx of brain aneurysm Continue home medications as appropriate VTE: Lovenox Code: Full Dispo: Home ~2-3 days Pending improvement of scrotal edema / erythema. Urology recommendations
[2023-06-28] MEDS: ENOXAPARIN 40 MG/0.4 ML SQ SCH (16:25)
[2023-06-28] MEDS: ATORVASTATIN 40 MG TAB PO SCH (20:32)
[2023-06-28] MEDS: MONTELUKAST 10 MG TAB PO SCH (20:32)
[2023-06-29] MEDS: MORPHINE 2 MG/ML SYR IV PRN ×6 (00:27→20:37)
[2023-06-29] MEDS ORDERED: CODEINE 30MG/APAP 300MG TAB PO PRN (07:11)
--- NOTE | 2023-06-29 07:29 | P.PN ---
Date of Service: 06/29/23 Subjective: scrotal pain ~same as yesterday. Doesn't feel worse; +intermediate card tender scrotum appears less erythematous / edematous today. 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 Underwent debulking with subsequent grafting at [facility] in 07/2022 and 02/2023 Scrotum u/s (06/21): scrotal wall edema / thickening. No fluid collection. Somewhat heterogeneous appearance to the left testis with vascularity in the periphery repeat scrotal u/s (06/26): Scrotal cellulitis, Prosthetic right testicle. no abnormalities of the left testis or epididymis CT pelvis (06/27): Scrotal cellulitis. No evidence of fluid collections. Nonspecific asymmetric film like enhancement of the tunica. prostatomegaly. sma ll-mod inguinal hernia Blood cx (06/21): No growth ID Following Completed 7 days of Miconazole (06/22-06/28); Added for empiric coverage of possible fungal dermatitis. Previously on vanc / rocephin for ~1 day (06/22-06/23) then switched to zosyn (06/23-06/26) Continue cefepime / vanc (06/26-), switched from zosyn 06/26 given worsening scrotal erythema / edema Continue antibiotic treatment for 2 weeks total per ID. Possibly deescalate to PO in next 24-48 hrs. Will discuss with ID tomorrow afebrile, CRP improving, leukocytosis resolved patient reports prior infxn and surgical procedures, vague on details. Able to get records on (06/26) given history/complexity and slight worsening, Urology consulted (06/26) Seen by urology (06/26). Dr. Ann reviewed past med records. No surgical intervention warranted this hospitalization. Continue medical management with antibiotics / pain control. Follow up as outpatient ~1-2 weeks once more clinically stable. PRN analgesics - norco added (06/29) wean IV pain meds as tolerable Chest pain Hx of CAD Elevated D-Dimer Chest pain was reportedly reproducible by palpation but reports pain was worse with exertion troponins negative; given concern for unstable angina and persistent symptoms, cardiology was consulted Echo (06/24): 66% EF, grade I diastolic dysfunction, mild MR/TR s/p heart cath (06/25): found to have normal coronary arteries. No intervention. No further cardiac work up. Continue aspirin, statin, metoprolol PRN analgesics / antiemetics Chest pressure / tightness improved D-dimer 1158 (06/26), possible from lymphedema / cellulitis given chest pressure and some reported WHITE for 2-3 weeks, will check CTA CTA chest (06/26): no PE. no other acute pulmonary process No prior history of PE / DVT Hypertension Hyperlipidemia BPH hx of brain aneurysm (~2007) Continue home medications as appropriate VTE: Lovenox Code: Full Dispo: Home ~1-2 days Pending improvement of scrotal edema / erythema, better pain control
[2023-06-29] MEDS: INSULIN REGULAR (HUMAN) 100 UNIT/ML SQ SCH ×4 (07:30→20:55)
[2023-06-29] MEDS: GABAPENTIN 400 MG CAP PO SCH ×2 (08:17→20:19)
[2023-06-29] MEDS: CEFEPIME 2 GM in NA CHLORIDE 0.9% 100 ML IV SCH ×2 (08:17→20:19)
[2023-06-29] MEDS: FLUTICASONE PROPIONATE 50 MCG IH SCH (08:17)
[2023-06-29] MEDS: METOPROLOL TAR 25 MG TAB PO SCH ×2 (08:17→20:18)
[2023-06-29] MEDS: ASPIRIN EC 81 MG TAB PO SCH (08:17)
[2023-06-29] MEDS: VANCOMYCIN 1.75 GM in NA CHLORIDE 0.9% 500 ML IVPB SCH ×2 (08:17→20:20)
[2023-06-29] MEDS: TAMSULOSIN 0.4 MG SR CAP PO SCH (08:17)
[2023-06-29 10:27] LABS: C-Reactive Protein 10.2 mg/L (<3.00); Magnesium 2.2 mg/dL (1.6-2.4)
[2023-06-29] MEDS: HYDROCODONE/APAP 5/325 MG TAB PO PRN ×3 (10:38→22:20)
[2023-06-29] MEDS: KETOROLAC 30 MG/ML INJ IV SCH ×2 (12:34→20:13)
--- NOTE | 2023-06-29 15:39 | P.CNS ---
Date of Consult: 06/26/23 Reason for Consult: scrotal anomaly Requesting Physician: Leroy Waller Chief Complaint: CP/ Scrotal swelling History of Present Illness: 67-year-old gentleman with hypertension, borderline DM 2, history of cerebral aneurysm postsurgical intervention admitted via the emergency department 06/21/2023 with complaints of left-sided chest pain radiating to the right arm. He was incidentally noted to have swelling of his scrotum, which he indicated had been going on for the last 4 to 5 days but progressively worsening. Upon my visit with him, he describes some improvement in the redness and swelling, but persistent tenderness. He was unable to describe why he had the prior surgeries, but he did recall he had had them done by Dr. Rey and was able to describe that plastic surgery was also involved. He said this was originally done 1 to 2 years ago, and because of some recurrent infection, reoperative intervention was required he said a year ago. Past surgical history (obtained via records accessed and reviewed from [facility] and [facility]): 02/21/2023 penile and scrotal skin resection for lymphedema with Dr. Rey - pathology reactive changes 02/26/2023 VAC closure device removal and drainage/evacuation of scrotal hematoma No known drug allergies Social history: Never smoker Family history: No urologic malignancy Examination: Alert, awake, oriented in no acute distress No dyspnea or sign of respiratory distress Morbidly obese with infrapubic pannus Erythema, thickened and nodular skin, tender to palpation, but no crepitus, appreciated within the skin of the infrapubic fat pad but sparing the penis, where the dorsal shaft was covered with a skin graft. Persistent thickening of an enlarged scrotal sac and thickening with some hypertrophic skin changes along the perineal raphae extending to the scrotum. The entirety of the area affected was tender to palpation but no crepitus appreciated. Laboratory analysis from [facility] 05/05/2023 PSA 2.45 Right testicular prosthesis in place 06/26/2023 scrotal ultrasound: Findings: Right testicle prosthesis demonstrates no adjacent fluid collections or other suspicious abnormalities. Left testis without intratesticular mass or evidence of torsion. Left epididymis is normal in size and appearance. No pathologic fluid collections. Skin thickening and mild subcutaneous tissue hypervascularity along the scrotum. Impression: Findings suggesting scrotal cellulitis. 06/21/2023 WBC 13.2, INR 1.19 06/24/2023 WBC 7.0, hemoglobin 12.1, platelets 184 06/26/2023 creatinine 1.01 06/27/2023 6:[address] - Pelvis W/Cont - FINDINGS: Pronounced subcutaneous edema with overlying skin thickening along the base and shaft of the penis, as well as the scrotum, with no appreciable fluid collections, soft tissue gas, or sinus tracts. Asymmetric film like enhancement along the tunica of the right more than left testicle, nonspecific. Small to moderate left inguinal hernia containing fat. No dilated bowel loops or bowel wall thickening. No free air, free fluid or inflammatory stranding. No hernia, mass or bulky lymphadenopathy. Moderate prostatomegaly with median lobe prominence within the bladder outlet. The urinary bladder is without significant finding. No suspicious bony findings. Sequelae of anterior L5-S1 fusion again seen. IMPRESSION: Findings suggestive of cellulitis along the base and shaft of the penis as well as the scrotum, without evidence of discrete fluid collections or soft tissue gas. Nonspecific asymmetric film like enhancement of the tunica. If there is clinical concern for orchitis or epididymitis, additional evaluation by scrotal ultrasound would be helpful. Prostatomegaly. Small to moderate left inguinal hernia containing fat. Assessment and recommendations: 67-year-old gentleman with hypertension, borderline DM 2, history of cerebral aneurysm post cervical intervention, right testicular prosthesis status post prior penile and scrotal skin resection for lymphedema with skin graft to the dorsal shaft of the penis now with recurrent cellulitis in the setting of scrotal perineal lymphedema, would likely venous stasis contributing to recurrent infections. -The following recommendations were communicated to Dr. Waller 06/27/2022, and I subsequently reviewed the imaging of the CT scan accordingly, report as indicated above. Recommendation: -CT pelvis with IV contrast to rule out subcutaneous gas or collection requiring resection or drainage, given the difficulty appreciating his tissues due to his morbid obesity and tenderness. MRI apparently recommended by infectious disease, but significant delays in obtaining that study made that prohibitive. -Consider IV Toradol for inflammation control and pain management -He would likely benefit from lymphangiography to define the etiology of his recurrent infections. -He may also benefit from outpatient cystoscopy and management of BPH Addendum 06/28/2023: -Ultimately, as no drainable collections were identified, management at this point would be conservative via antimicrobial therapy. If insufficient resolution, given reasonable time for therapy, further surgical resection may be required. -If additional surgical resection required, potential need for plastic surgical skin grafting as has been done in the past. Allergies No Known Drug Allergies Allergy (Verified 08/03/21 21:57) Unknown Home medications list reviewed: Yes Home Medications: Baclofen [Lioresal*] 10 mg PO DAILY 06/22/23 Fluticasone Propionate [Flovent Diskus] 1 spray IH DAILY 06/22/23 Gabapentin [Neurontin*] 400 mg PO BID 06/22/23 Loratadine [Claritin*] 10 mg PO DAILY 06/22/23 Metformin ER [Glucophage ER*] 500 mg PO DAILY 06/22/23 Metoprolol Tartrate [Lopressor*] 25 mg PO BID 06/22/23 Montelukast [Singulair*] 10 mg PO BEDTIME 06/22/23 Tadalafil [Cialis] 5 mg PO PRN PRN 06/22/23 Tamsulosin [Flomax*] 2 cap PO DAILY 06/22/23 Tramadol HCl [Ultram] 50 mg PO Q8H PRN 06/22/23 - Past Medical/Surgical History Diabetic: Yes -: HTN -: BRAIN ANUERYSMS -: Borderline diabetes -: Back surgery -: BRAIN SURGERY FOR ANEURYSMS -: Back surgery Psychosocial/ Personal History: Patient is retired, lives with his - Family History Mother Medical History: Cancer Notes: BREAST CANCER - Social History Smoking Status: Unknown if ever smoked Alcohol use: Yes CD- Drugs: No Caffeine use: Yes Place of Residence: Home Physical Examination Temp Pulse Resp BP Pulse Ox 97.0 F 65 18 177/81 H 95 06/29/23 12:24 06/29/23 12:24 06/29/23 12:24 06/29/23 12:24 06/29/23 12:24 - Problems (1) Lymphedema of scrotum Current Visit: Yes Status: Acute (2) Cellulitis of scrotum Current Visit: No Status: Acute Conclusions/Impression: see A&P in HPI Critical Care: No Time Spent Managing Pts care (In Minutes): 60
[2023-06-29] MEDS: ATORVASTATIN 40 MG TAB PO SCH (20:17)
[2023-06-29] MEDS: MONTELUKAST 10 MG TAB PO SCH (20:20)
[2023-06-30] MEDS: MORPHINE 2 MG/ML SYR IV PRN ×2 (01:58→07:48)
[2023-06-30] MEDS: KETOROLAC 30 MG/ML INJ IV SCH (03:50)
[2023-06-30] MEDS: HYDROCODONE/APAP 5/325 MG TAB PO PRN ×5 (04:02→23:56)
[2023-06-30 06:20] LABS: Absolute Lymphocytes (CBC) 1.9 K/uL (0.7-4.9); Hematocrit 34.6 % (39.6-49.0); Lymphocytes % 31.2 % (15.3-44.8); MCV 88.5 fL (80-100); MPV 7.3 fL (7.6-11.3); Platelets 216 thou/uL (152-406)
--- NOTE | 2023-06-30 07:19 | P.PN ---
Date of Service: 06/30/23 Subjective: Feeling slightly better today erythema / swelling continues to improve slowly scrotal pain / tenderness continues. 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, s/p debulking with subsequent grafting (07/2022 @[facility], and 02/2023) with h/o post-op complication of scrotal hematoma (2022) and cellulitis Chest pain Hx of CAD Elevated D-Dimer Hypertension Hyperlipidemia BPH hx of brain aneurysm (~2007) Cellulitis of scrotum; with h/o prior scrotal cellulitis 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 Underwent debulking with subsequent grafting at [facility] in 07/2022 and 02/21/2023 Scrotum u/s (06/21): scrotal wall edema / thickening. No fluid collection. Somewhat heterogeneous appearance to the left testis with vascularity in the periphery repeat scrotal u/s (06/26): Scrotal cellulitis, Prosthetic right testicle. no abnormalities of the left testis or epididymis CT pelvis w/contrast (06/27): Scrotal cellulitis. No evidence of fluid or gas collections. Nonspecific asymmetric film like enhancement of the tunica. prostatomegaly. small-mod inguinal hernia Blood cx (06/21): No growth ID Following Completed 7 days of Miconazole (06/22-06/28); Added for empiric coverage of possible fungal dermatitis. Previously on vanc / rocephin for ~1 day (06/22-06/23) then switched to zosyn (06/23-06/26) Continue cefepime / vanc (06/26-), switched from zosyn 06/26 given worsening scrotal erythema / edema Continue antibiotic treatment for 2 weeks total per ID. Possibly deescalate to PO in next 24-48 hrs. Will discuss with ID afebrile, CRP improving, leukocytosis resolved patient reports prior infxn and surgical procedures, vague on details. Able to get records on (06/26) given history/complexity and slight worsening, Urology consulted (06/26) Seen by urology - Dr. Ann (06/26). No surgical intervention warranted this hospitalization. Continue medical management with antibiotics / pain control. Follow up as outpatient once more clinically stable for outpatient cystoscopy / management of BPH. May also benefit from lymphangiography. PRN analgesics - norco added (06/29) Morphine dc'd (06/30) s/p toradol x3 (06/29) Chest pain Hx of CAD Elevated D-Dimer Chest pain was reportedly reproducible by palpation but reports pain was worse with exertion troponins negative; given concern for unstable angina and persistent symptoms, cardiology was consulted Echo (06/24): 66% EF, grade I diastolic dysfunction, mild MR/TR s/p heart cath (06/25): found to have normal coronary arteries. No intervention. No further cardiac work up. Continue aspirin, statin, metoprolol PRN analgesics / antiemetics Chest pressure / tightness improved D-dimer 1158 (06/26), possible from lymphedema / cellulitis given chest pressure and some reported WHITE for 2-3 weeks, will check CTA CTA chest (06/26): no PE. no other acute pulmonary process No prior history of PE / DVT Hypertension Hyperlipidemia BPH hx of brain aneurysm (~2007) Continue home medications as appropriate VTE: Lovenox Code: Full Dispo: Home ~1-2 days Pending improvement of scrotal edema / erythema, better pain control with PO meds, abx recommendations
[2023-06-30] MEDS: INSULIN REGULAR (HUMAN) 100 UNIT/ML SQ SCH ×4 (07:30→21:00)
[2023-06-30] MEDS: CEFEPIME 2 GM in NA CHLORIDE 0.9% 100 ML IV SCH ×2 (07:47→21:17)
[2023-06-30] MEDS: ASPIRIN EC 81 MG TAB PO SCH (07:47)
[2023-06-30] MEDS: GABAPENTIN 400 MG CAP PO SCH ×2 (07:48→21:17)
[2023-06-30] MEDS: TAMSULOSIN 0.4 MG SR CAP PO SCH (07:48)
[2023-06-30] MEDS: METOPROLOL TAR 25 MG TAB PO SCH ×2 (07:48→21:17)
[2023-06-30] MEDS: FLUTICASONE PROPIONATE 50 MCG IH SCH (07:57)
[2023-06-30] MEDS: VANCOMYCIN 1.75 GM in NA CHLORIDE 0.9% 500 ML IVPB SCH ×2 (08:36→21:16)
--- NOTE | 2023-06-30 14:57 | P.PN ---
Date of Service: 06/30/23 Chief Complaint: CP/ Scrotal swelling Subjective: Patient seen and examined at bedside. Sitting in chair at bedside. In no apparent distress. + scrotal tenderness/pain Scrotal erythema improving. Physical Examination Temp Pulse Resp BP Pulse Ox 97.3 F 62 16 156/90 H 97 06/30/23 12:00 06/30/23 12:00 06/30/23 12:00 06/30/23 12:00 06/30/23 12:00 General: Alert, In no apparent distress, Oriented x3 HEENT: Atraumatic, Normocephalic. Respiratory: Clear to auscultation bilaterally, Normal air movement Cardiovascular: Regular rate/rhythm. BLE edema. Gastrointestinal: Normal bowel sounds, Soft and benign Neurological: Normal speech, Normal tone, Normal affect External genitalia: edematous. Scrotal edema, erythema and tenderness. Laboratory Data - Reviewed Microbiology Data - Reviewed Imagings Data: - Reviewed Medication List: - Reviewed Assessment and Plan Problem List Cellulitis of Scrotum Chest pain Coronary Artery Disease Hypertension Hyperlipidemia Scrotal Cellulitis Prior history of scrotal/penile lymphedema with resection of lymphedema with grafting February 2023. - Scrotal ultrasound 06/21: "Generalized scrotal wall edema and thickening. Diffuse scrotal wall thickening/edema. No discrete drainable collection." - Previously on Zosyn (06/23-06/26). Switched to Cefepime and Vancomycin 06/26 given worsening scrotal erythema/edema. - Repeat Scrotal Ultrasound 06/26: "Findings suggesting scrotal cellulitis. Prosthetic right testicle. No abnormalities of the left testis or epididymis." - CT Pelvis 06/27: "Findings suggestive of cellulitis along the base and shaft of the penis as well as the scrotum, without evidence of discrete fluid collections or soft tissue gas. Nonspecific asymmetric film like enhancement of the tunica. If there is clinical concern for orchitis or epididymitis, additional evaluation by scrotal ultrasound would be helpful. Prostatomegaly. Small to moderate left inguinal hernia containing fat." Afebrile Leukocytosis resolved Recommendations - Scrotal cellulitis: Continue antibiotic therapy for 14 days. Consider switch to Ciprofloxacin 500mg PO BID and Doxycyline 100mg PO BID to complete remainder of antibiotic course. - Follow up with urologist as outpatient in 1-2 weeks - Keep area clean and dry - Continue Miconazole topical for 7-10 days to cover fungal infection Case discussed with Yahir Chan
[2023-06-30] MEDS: ATORVASTATIN 40 MG TAB PO SCH (21:17)
[2023-06-30] MEDS: MONTELUKAST 10 MG TAB PO SCH (21:17)
[2023-07-01] MEDS: HYDROCODONE/APAP 5/325 MG TAB PO PRN ×4 (05:42→18:48)
[2023-07-01] MEDS: INSULIN REGULAR (HUMAN) 100 UNIT/ML SQ SCH ×4 (07:30→21:00)
[2023-07-01 08:29] LABS: Magnesium 2.3 mg/dL (1.6-2.4); Potassium 4.1 mEq/L (3.5-5.1)
[2023-07-01] MEDS: FLUTICASONE PROPIONATE 50 MCG IH SCH (09:00)
[2023-07-01] MEDS: CEFEPIME 2 GM in NA CHLORIDE 0.9% 100 ML IV SCH (09:12)
[2023-07-01] MEDS: METOPROLOL TAR 25 MG TAB PO SCH ×2 (09:12→21:24)
[2023-07-01] MEDS: GABAPENTIN 400 MG CAP PO SCH ×2 (09:13→21:24)
[2023-07-01] MEDS: TAMSULOSIN 0.4 MG SR CAP PO SCH (09:13)
[2023-07-01] MEDS: ASPIRIN EC 81 MG TAB PO SCH (09:13)
[2023-07-01] MEDS: VANCOMYCIN 1.75 GM in NA CHLORIDE 0.9% 500 ML IVPB SCH (09:55)
--- NOTE | 2023-07-01 12:16 | P.PN ---
Date of Service: 07/01/23 Chief Complaint: CP/ Scrotal swelling Subjective: Patient seen and examined at bedside. In no apparent distress. No acute events overnight. + scrotal tenderness and erythema + edematous genitalia and scrotum Scrotal erythema slightly improving. Physical Examination Temp Pulse Resp BP Pulse Ox 97.8 F 56 18 156/88 H 98 07/01/23 04:00 07/01/23 09:12 07/01/23 05:42 07/01/23 09:12 07/01/23 05:42 General: Alert, In no apparent distress, Oriented x3 HEENT: Atraumatic, Normocephalic. Respiratory: Clear to auscultation bilaterally, Normal air movement Cardiovascular: Regular rate/rhythm. BLE edema. Gastrointestinal: Normal bowel sounds, Soft and benign Neurological: Normal speech, Normal tone, Normal affect External genitalia: edematous. Scrotal edema, erythema and tenderness. Laboratory Data - Reviewed Microbiology Data - Reviewed Imagings Data: - Reviewed Medication List: - Reviewed Assessment and Plan Problem List Cellulitis of Scrotum Chest pain Coronary Artery Disease Hypertension Hyperlipidemia Scrotal Cellulitis Prior history of scrotal/penile lymphedema with resection of lymphedema with grafting February 2023. - Scrotal ultrasound 06/21: "Generalized scrotal wall edema and thickening. Diffuse scrotal wall thickening/edema. No discrete drainable collection." - Previously on Zosyn (06/23-06/26). Switched to Cefepime and Vancomycin 06/26 given worsening scrotal erythema/edema. - Repeat Scrotal Ultrasound 06/26: "Findings suggesting scrotal cellulitis. Prosthetic right testicle. No abnormalities of the left testis or epididymis." - CT Pelvis 06/27: "Findings suggestive of cellulitis along the base and shaft of the penis as well as the scrotum, without evidence of discrete fluid collections or soft tissue gas. Nonspecific asymmetric film like enhancement of the tunica. If there is clinical concern for orchitis or epididymitis, additional evaluation by scrotal ultrasound would be helpful. Prostatomegaly. Small to moderate left inguinal hernia containing fat." Afebrile Leukocytosis resolved Recommendations - Scrotal cellulitis: Continue antibiotic therapy for 14 days. Consider switch to Ciprofloxacin 500mg PO BID and Doxycyline 100mg PO BID to complete remainder of antibiotic course. - Follow up with urologist as outpatient in 1-2 weeks - Keep area clean and dry - Continue Miconazole topical for 7-10 days to cover fungal infection Case discussed with Yahir Chan
--- NOTE | 2023-07-01 15:36 | P.PN ---
Subjective Date of Service: 07/01/23 Chief Complaint: CP/ Scrotal swelling Patient adamantly denies any chest pain He reported burning in the scrotal area. Redness on the mons pubis has significantly improved. No recorded fever. Physical Examination - Vital Signs Temperature: 97.2 F Blood Pressure: 167/91 Pulse: 57 Respirations: 16 Pulse Ox (%): 96 Assessment And Plan - Current Problems (Diagnosis) (1) Chest pain, rule out acute myocardial infarction Current Visit: No Status: Acute (2) CAD (coronary artery disease) Current Visit: Yes Status: Acute (3) Cellulitis of scrotum Current Visit: No Status: Acute (4) HTN (hypertension) Onset Date: 08/04/17 Current Visit: No Status: Chronic Qualifiers: Hypertension type: primary hypertension Qualified Code(s): I10 - Essential (primary) hypertension - Plan Physical Exam: Gen: Alert, Oriented, NAD CV: Regular rate & rhythm, no pedal edema Pulm: clear bilaterally, adequate breath sounds bilaterally Abd: soft, nontender, nondistended : Scrotum slightly less erythematous, no new lesions, no drainage. Skin: Mons pubis erythema resolved. 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, and 02/2023) with h/o post-op complication of scrotal hematoma (2022) and cellulitis Patient noted to have hx of acquired buried penis syndrome. Underwent debulking with subsequent grafting at [facility] in 07/2022 and 02/21/2023 Scrotum u/s (06/21): scrotal wall edema / thickening. No fluid collection. Somewhat heterogeneous appearance to the left testis with vascularity in the periphery Repeat scrotal u/s (06/26): Scrotal cellulitis, Prosthetic right testicle. no abnormalities of the left testis or epididymis CT pelvis w/contrast (06/27): Scrotal cellulitis. No evidence of fluid or gas collections. Nonspecific asymmetric film like enhancement of the tunica. prostatomegaly. small-mod inguinal hernia Blood cx (06/21): No growth ID Following Highly suspect erythema is mostly related to lymphedema Urology input appreciated. Antibiotics and outpatient lymphangiography recommended Completed 7 days of Miconazole (06/22-06/28) which was added for empiric coverage of possible fungal dermatitis. Previously on vanc / rocephin for ~1 day (06/22-06/23) then switched to zosyn (06/23-06/26) then switched to cefepime / vanc (06/26-), Infectious disease recommend oral antibiotics-Cipro and doxycycline to complete 14 days of treatment. Monitor on 1 more day after initiation of oral antibiotics. PRN analgesics - norco. Chest pain Hx of CAD Elevated D-Dimer Chest pain was reportedly reproducible by palpation but he reported pain was worse with exertion troponins negative; given concern for unstable angina and persistent symptoms, cardiology was consulted Echo (06/24): 66% EF, grade I diastolic dysfunction, mild MR/TR s/p heart cath (06/25): found to have normal coronary arteries. No intervention. No further cardiac work up. Continue aspirin, statin, metoprolol PRN analgesics / antiemetics D-dimer elevated possible from lymphedema / cellulitis CTA chest (06/26): no PE. no other acute pulmonary process No prior history of PE / DVT. Hypertension Hyperlipidemia BPH hx of brain aneurysm (~2007) Continue home medications. Code: Full Dispo: Home possibly in the a.m. DVT prophylaxis: Lovenox
[2023-07-01 16:56] VITALS: O2SAT 98
[2023-07-01] MEDS ORDERED: VANCOMYCIN 1.5 GM in NA CHLORIDE 0.9% 500 ML IVPB SCH (21:00)
[2023-07-01] MEDS: MONTELUKAST 10 MG TAB PO SCH (21:24)
[2023-07-01] MEDS: DOXYCYCLINE 100 MG CAP PO SCH (21:24)
[2023-07-01] MEDS: ATORVASTATIN 40 MG TAB PO SCH (21:24)
[2023-07-01] MEDS: CIPROFLOXACIN HCL 500 MG TAB PO SCH (21:25)
[2023-07-02] MEDS: HYDROCODONE/APAP 5/325 MG TAB PO PRN ×2 (04:06→08:27)
[2023-07-02 05:54] LABS: Absolute Lymphocytes (CBC) 2.2 K/uL (0.7-4.9); Hematocrit 35.2 % (39.6-49.0); Lymphocytes % 29.2 % (15.3-44.8); MCV 88.9 fL (80-100); MPV 7.4 fL (7.6-11.3); Platelets 214 thou/uL (152-406); RBC Red Blood Cell Count 3.96 M/uL (4.33-5.43)
[2023-07-02 06:12] LABS: Potassium 3.9 mEq/L (3.5-5.1)
[2023-07-02] MEDS: INSULIN REGULAR (HUMAN) 100 UNIT/ML SQ SCH (07:30)
[2023-07-02] MEDS: TAMSULOSIN 0.4 MG SR CAP PO SCH (08:27)
[2023-07-02] MEDS: METOPROLOL TAR 25 MG TAB PO SCH (08:27)
[2023-07-02] MEDS: CIPROFLOXACIN HCL 500 MG TAB PO SCH (08:28)
[2023-07-02] MEDS: GABAPENTIN 400 MG CAP PO SCH (08:28)
[2023-07-02] MEDS: DOXYCYCLINE 100 MG CAP PO SCH (08:28)
[2023-07-02] MEDS: ASPIRIN EC 81 MG TAB PO SCH (08:29)
[2023-07-02] MEDS: FLUTICASONE PROPIONATE 50 MCG IH SCH (08:29)
[2023-07-02 08:35] VITALS: BP 165/82; TEMP 97.1
--- NOTE | 2023-07-02 09:41 | P.DS ---
Admission Date: 06/22/23 Discharge Date: 07/02/23 Disposition: ROUTINE DISCHARGE Discharge Condition: FAIR Reason for Admission: CP/ Scrotal swelling - Problems (1) Chest pain, rule out acute myocardial infarction Status: Acute (2) CAD (coronary artery disease) Status: Acute (3) Cellulitis of scrotum Status: Acute (4) HTN (hypertension) Onset Date: 08/04/17 Status: Chronic Qualifiers: Hypertension type: primary hypertension Qualified Code(s): I10 - Essential (primary) hypertension Brief History of Present Illness: 67 yo male with a past medical history of hypertension, borderline diabetes, history of brain aneurysm status post surgery, who came into the ER with chest pain. He denied any fever or chills or shortness of breath. 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 Underwent debulking with subsequent grafting at [facility] in 07/2022 and 02/21/2023 Scrotum u/s (06/21): scrotal wall edema / thickening. No fluid collection. Somewhat heterogeneous appearance to the left testis with vascularity in the periphery Repeat scrotal u/s (06/26): Scrotal cellulitis, Prosthetic right testicle. no abnormalities of the left testis or epididymis CT pelvis w/contrast (06/27): Scrotal cellulitis. No evidence of fluid or gas collections. Nonspecific asymmetric film like enhancement of the tunica. prostatomegaly. small-mod inguinal hernia Blood cx (06/21): No growth ID assisted with management Highly suspect erythema is mostly related to lymphedema Urology input appreciated. Antibiotics and outpatient lymphangiography recommended Completed 7 days of Miconazole (06/22-06/28) which was added for empiric coverage of possible fungal dermatitis. Previously on vanc / rocephin for ~1 day (06/22-06/23) then switched to zosyn (06/23-06/26) then switched to cefepime / vanc (06/26-), Antibiotics changed to oral Cipro and doxycycline on discharge to complete 14 days of treatment. PRN analgesics - norco. Also prescribed lidocaine ointment to apply topically for pain control. Chest pain Hx of CAD Elevated D-Dimer Chest pain was reportedly reproducible by palpation but he reported pain was worse with exertion troponins negative; given concern for unstable angina and persistent symptoms, cardiology was consulted Echo (06/24): 66% EF, grade I diastolic dysfunction, mild MR/TR s/p heart cath (06/25): found to have normal coronary arteries. No intervention. No further cardiac work up. CTA chest (06/26): no PE. no other acute pulmonary process No prior history of PE / DVT. Hypertension Hyperlipidemia BPH hx of brain aneurysm (~2007) Continued home medications. Vital Signs/Physical Exam: Temp Pulse Resp BP Pulse Ox 97.1 F 68 18 165/82 H 97 07/02/23 08:00 07/02/23 08:27 07/02/23 08:27 07/02/23 08:27 07/02/23 08:27 General: Alert, In no apparent distress, Oriented x3 HEENT: Mucous membr. moist/pink Neck: JVD not distended Respiratory: Clear to auscultation bilaterally, Normal air movement Cardiovascular: No edema, Regular rate/rhythm, Normal S1 S2 Gastrointestinal: Soft and benign, Non-distended Musculoskeletal: No swelling External genitalia: Other (Scrotal erythema improved, mons pubis erythema resolved.) Laboratory Data at Discharge: WBC 7.40 thou/uL (4.3-10.9) 07/02/23 05:08 Hgb 12.1 g/dL (13.6-17.9) L 07/02/23 05:08 Hct 35.2 % (39.6-49.0) L 07/02/23 05:08 Plt Count 214 thou/uL (152-406) 07/02/23 05:08 PT 13.0 SECONDS (9.5-12.5) H 06/21/23 19:42 INR 1.19 06/21/23 19:42 APTT 35.6 SECONDS (24.3-36.9) 06/21/23 19:42 Sodium 141 mEq/L (136-145) 07/02/23 05:08 Potassium 3.9 mEq/L (3.5-5.1) 07/02/23 05:08 BUN 8 mg/dL (7-18) 07/02/23 05:08 Creatinine 0.89 mg/dL (0.70-1.30) 07/02/23 05:08 Glucose 82 mg/dL (74-106) 07/02/23 05:08 Magnesium 2.3 mg/dL (1.6-2.4) 07/01/23 08:03 Total Bilirubin 0.9 mg/dL (0.2-1.0) 06/22/23 02:13 AST 13 U/L (15-37) L 06/22/23 02:13 ALT 25 U/L (16-61) 06/22/23 02:13 Alkaline Phosphatase 98 U/L (45-117) 06/22/23 02:13 Triglycerides 51 mg/dL (<150) 06/22/23 02:13 Cholesterol 89 mg/dL (<200) 06/22/23 02:13 HDL Cholesterol 33 mg/dL (40-60) L 06/22/23 02:13 Cholesterol/HDL Ratio 2.70 06/22/23 02:13 Lipase 36 U/L (13-75) 06/21/23 19:42 Home Medications: Baclofen [Lioresal*] 10 mg PO DAILY 06/22/23 Fluticasone Propionate [Flovent Diskus] 1 spray IH DAILY 06/22/23 Gabapentin [Neurontin*] 400 mg PO BID 06/22/23 Loratadine [Claritin*] 10 mg PO DAILY 06/22/23 Metformin ER [Glucophage ER*] 500 mg PO DAILY 06/22/23 Metoprolol Tartrate [Lopressor*] 25 mg PO BID 06/22/23 Montelukast [Singulair*] 10 mg PO BEDTIME 06/22/23 Tadalafil [Cialis] 5 mg PO PRN PRN 06/22/23 Tamsulosin [Flomax*] 2 cap PO DAILY 06/22/23 Aspirin [Aspirin EC] 81 mg PO DAILY #30 tab 07/02/23 Atorvastatin Calcium [Lipitor] 40 mg PO BEDTIME #30 tab 07/02/23 Ciprofloxacin HCl [Cipro] 500 mg PO BID #14 tab 07/02/23 Doxycycline Hyclate 100 mg PO BID #14 cap 07/02/23 Hydrocodone 5/APAP 325 [[place] 5/325*] 1 tab PO Q4H PRN #15 tab 07/02/23 Lidocaine 5% [Lidocaine HCl] 1 appl TOP BID #1 ea 07/02/23 New Medications: Aspirin [Aspirin EC] 81 mg PO DAILY #30 tab Ciprofloxacin HCl [Cipro] 500 mg PO BID #14 tab Doxycycline Hyclate 100 mg PO BID #14 cap Lidocaine 5% [Lidocaine HCl] 1 appl TOP BID #1 ea Atorvastatin Calcium [Lipitor] 40 mg PO BEDTIME #30 tab Hydrocodone 5/APAP 325 [[place] 5/325*] 1 tab PO Q4H PRN #15 tab PRN Reason: Pain Scale 5-7 (Moderate) Physician Discharge Instructions: Patient presented with chest pain, worsening scrotal pain/swelling. Troponins were negative. CXR without any acute findings. Echo this hospitalization reported 66% EF, grade 1 diastolic dysfunction, mild MR/TR. Cardiology was consulted given concern for unstable angina and persistent symptoms. Patient was taken to OR for heart cath and was found to have normal coronary arteries. No intervention required. In regards to scrotal pain / swelling: Scrotum ultrasound noted scrotal wall edema / thickening. No fluid collection. Somewhat heterogeneous appearance to the left testis with vascularity in the periphery. Patient was started on empiric zosyn / miconazole as a precaution to cover infection / fungal dermatitis. Patient's scrotal erythema / edema noted to worsen on zosyn. Antibiotics were switched to cefepime / vanc and patient had improvement of his symptoms. Blood cultures without growth. Patient reported prior episodes of cellulitis / lymphedema with acquired buried penis syndrome requiring debulking with subsequent grafting at [facility] in 07/2022 and 02/2023. Records obtained 06/26. Given history/complexity of case and worsening urology was consulted. CT pelvis with contrast was obtained to rule out abscess/hematoma/fasciitis given patients worsening erythema / edema. Noted scrotal cellulitis without any evidence of fluid collections. Dr. Ann recommended to follow up as outpatient for cystoscopy / management of BPH. No acute surgical intervention warranted. Patient would also likely benefit from lymphangiography to determine etiology of his recurrent infections. Patient completed 1 week on miconazole to cover fungal dermatitis. Heart Cath Report (06/25/23): 1. Left main; very large and normal. 2. LAD; very large vessel, normal. Normal diagonal branches. 3. Left circumflex; large and codominant and normal. 4. RCA; large and codominant and normal. Medications: [place] as needed for pain Lidocaine patch to apply to the scrotal area for pain. Antibiotics: ciprofloxacin and Doxycycline. Follow up: PCP 3-5 days Cardiology in 1-2 weeks Urology in 1-2 weeks Diet: AHA Activity: Ad jose Followup: David Caceres MD [ACTIVE - CAN ADMIT] - 1-2 Weeks (Within 2 weeks.) Vicky Leiva MD [Primary Care Provider] - 2-3 Days Brandon Ann [ACTIVE - CAN ADMIT] - 1-2 Weeks Time spent managing pt's care (in minutes): 40
== END 2023-07-02 10:43 | disposition home or self-care (01) | DRG 287 ==
LOC: ER 18:39 → 2ND 06-22 00:36
PROVIDERS: ADMIT Family Medicine; ATTEND Internal Medicine
PROC: B2111ZZ Fluoroscopy of Multiple Coronary Arteries using Low Osmolar Contrast (ICD-10-PCS; principal; 2023-06-25)
PROC: 4A023N7 Measurement of Cardiac Sampling and Pressure, Left Heart, Percutaneous Approach (ICD-10-PCS; 2023-06-25)
DX: I25.110 Atherosclerotic heart disease of native coronary artery with unstable angina pectoris (principal); Z68.41 Body mass index [BMI] 40.0-44.9, adult; E66.01 Morbid (severe) obesity due to excess calories; N49.2 Inflammatory disorders of scrotum; I10 Essential (primary) hypertension; E11.9 Type 2 diabetes mellitus without complications; E78.2 Mixed hyperlipidemia; I08.1 Rheumatic disorders of both mitral and tricuspid valves; I87.8 Other specified disorders of veins; L53.9 Erythematous condition, unspecified; I89.0 Lymphedema, not elsewhere classified; N40.0 Benign prostatic hyperplasia without lower urinary tract symptoms; Z95.1 Presence of aortocoronary bypass graft; Z79.82 Long term (current) use of aspirin; Z11.52 Encounter for screening for COVID-19; Z79.84 Long term (current) use of oral hypoglycemic drugs; Z79.899 Other long term (current) drug therapy
CPT/HCPCS: 36415; 71045; 71275; 72193; 76870; 76937; 80048; 80053; 80061; 80076; 80202; 82550; 82947; 83036; 83605; 83690; 83735; 83880; 84484; 85025; 85379; 85610; 85730; 86140; 87040; 87635; 87804; 93005; 93306; 93454; 99152; 99285; C1893; J0461; J0692; J0696; J1644; J1650; J1815; J2001; J2250; J2270; J2405; J2543; J2765; J3010; J7030; J7040; J7050; J7613; Q9966; Q9967

== ENCOUNTER 2024-07-24 21:18 | Emergency (ER) | payer OTHER ==
[2024-07-24] MEDS ORDERED: NA CHLORIDE 0.9% 500 ML ONE (22:22)
--- NOTE | 2024-07-24 22:39 | RAD REPORT ---
EXAMINATION: CT LUMBAR SPINE WITHOUT CONTRAST CLINICAL INDICATION: Male, 69 years old. PAIN TECHNIQUE: Axial CT images were obtained through the lumbar spine in soft tissue and bone windows wit hout intravenous contrast. Coronal and Sagittal reformatted images were created from the data set. One or more of the following dose reduction techniques were used: Automated exposure control, adjustm ent of the mA and/ or kV according to patient size, and/or iterative reconstruction. Unless otherwise specified, incidental findings do not require dedicated imaging follow-up. COMPARISON: 04/18/2021 FINDINGS: For purposes of this dictation, it is assumed that there are 5 non rib-bearing lumbar type vertebrae, and the most caudal fully segmented lumbar vertebra is labeled L5. ALIGNMENT: The lumbar spine demonstrates normal alignment without scoliosis or spondylolisthesis. BONES: No significant soft tissue abnormalities. No aggressive osseous lesions. DISCS: Anterior fusion hardware is present L5-S1. Small endplate osteophytes are present. LEVELS: Posterior disc bulges are present lumbar levels. Mild to moderate central canal stenosis seen at L5-S1. SOFT TISSUE: No soft tissue abnormalities. IMPRESSION: No acute lumbar spine abnormalities. [id number] lower lumbar degenerative spondylosis.
[2024-07-24 22:44] LABS: Absolute Basophils 0.1 K/uL (0-0.5); Absolute Eosinophils 0.3 K/uL (0-0.5); Absolute Lymphocytes (CBC) 2.3 K/uL (0.7-4.9); Absolute Monocytes 0.8 K/uL (0.1-1.3); Absolute Neutrophil 5.2 K/uL (1.8-8.0); Basophils % 0.9 % (0-1.3); Eosinophils % 3.7 % (0-4.4); Hematocrit 43.4 % (39.6-49.0); Hemoglobin 14.6 g/dL (13.6-17.9); Lymphocytes % 26.6 % (15.3-44.8); MCH 32.1 pg (27.0-35.0); MCHC 33.6 g/dL (32.0-36.0); MCV 95.6 fL (80-100); MPV 8.2 fL (7.6-11.3); Monocytes % 8.7 % (3.3-12.3); Neutrophils % 60.1 % (41.7-73.7); Platelets 250 thou/uL (152-406); RBC Red Blood Cell Count 4.54 M/uL (4.33-5.43); Red Cell Distribution Width 14.6 % (12.1-15.2)
--- NOTE | 2024-07-24 23:03 | EDPHYS ---
Physician Documentation [facility] Name: Winston Garcia Age: 69 yrs Sex: Male : 1955 Arrival Date: 07/24/2024 Time: 21:18 Bed 19 Private MD: ED Physician Ric Vargas HPI: 07/24 22:24 This 69 yrs old Male presents to ER via Wheelchair with complaints of Low ashlee Back Pain. 22:24 The patient presents with pain that is acute, and decreased range of motion, and an ashlee injury. The symptoms are located in the low back. The pain radiates to the coccyx and left gluteus blanca. The problem was sustained when lifting boxes. Onset: The symptoms/episode began/occurred today. Modifying factors: The patient symptoms are alleviated by remaining still, the patient symptoms are aggravated by any movement. Associated signs and symptoms: Pertinent positives: none. Severity of symptoms: At their worst the symptoms were moderate, in the emergency department the symptoms are unchanged. Historical: - Allergies: 21:33 No Known Drug Allergies; me1 - PMHx: 21:33 brain aneurysm; Hyperlipidemia; Hypertension; me1 - PSHx: 21:33 Appendectomy; me1 - Immunization history:: Adult Immunizations up to date. - Infectious Disease History:: Denies. - Social history:: Smoking status: Patient/guardian denies using tobacco, but has a distant history of tobacco abuse. - Family history:: not pertinent. ROS: 22:24 Constitutional: Negative for fever, chills, and weight loss, Eyes: Negative for injury, ashlee pain, redness, and discharge, ENT: Negative for injury, pain, and discharge, Neck: Negative for injury, pain, and swelling, Cardiovascular: Negative for chest pain, palpitations, and edema, Respiratory: Negative for shortness of breath, cough, wheezing, and pleuritic chest pain, Abdomen/GI: Negative for abdominal pain, nausea, vomiting, diarrhea, and constipation, : Negative for injury, bleeding, discharge, and swelling, MS/Extremity: Negative for injury and deformity, Skin: Negative for injury, rash, and discoloration, Neuro: Negative for headache, weakness, numbness, tingling, and seizure, Psych: Negative for depression, anxiety, suicide ideation, homicidal ideation, and hallucinations, Allergy/Immunology: Negative for hives, rash, and allergies, Endocrine: Negative for neck swelling, polydipsia, polyuria, polyphagia, and marked weight changes, Hematologic/Lymphatic: Negative for swollen nodes, abnormal bleeding, and unusual bruising, 22:24 Back: Positive for injury or acute deformity, pain with movement, radiated pain, of the left low back, Exam: 22:24 Constitutional: This is a well developed, well nourished patient who is awake, alert, ashlee and in no acute distress. Head/Face: Normocephalic, atraumatic. Eyes: Pupils equal round and reactive to light, extra-ocular motions intact. Lids and lashes normal. Conjunctiva and sclera are non-icteric and not injected. Cornea within normal limits. Periorbital areas with no swelling, redness, or edema. ENT: Nares patent. No nasal discharge, no septal abnormalities noted. Tympanic membranes are normal and external auditory canals are clear. Oropharynx with no redness, swelling, or masses, exudates, or evidence of obstruction, uvula midline. Mucous membranes moist. Neck: Trachea midline, no thyromegaly or masses palpated, and no cervical lymphadenopathy. Supple, full range of motion without nuchal rigidity, or vertebral point tenderness. No Meningismus. Chest/axilla: Normal chest wall appearance and motion. Nontender with no deformity. No lesions are appreciated. Cardiovascular: Regular rate and rhythm with a normal S1 and S2. No gallops, murmurs, or rubs. Normal PMI, no JVD. No pulse deficits. Respiratory: Lungs have equal breath sounds bilaterally, clear to auscultation and percussion. No rales, rhonchi or wheezes noted. No increased work of breathing, no retractions or nasal flaring. Abdomen/GI: Soft, non-tender, with normal bowel sounds. No distension or tympany. No guarding or rebound. No evidence of tenderness throughout. Skin: Warm, dry with normal turgor. Normal color with no rashes, no lesions, and no evidence of cellulitis. MS/ Extremity: Pulses equal, no cyanosis. Neurovascular intact. Full, normal range of motion., bilateral aka Neuro: Awake and alert, GCS 15, oriented to person, place, time, and situation. Cranial nerves II-XII grossly intact. Motor strength 5/5 in all extremities. Sensory grossly intact. Cerebellar exam normal. Normal gait. Psych: Awake, alert, with orientation to person, place and time. Behavior, mood, and affect are within normal limits. 22:24 Back: pain, that is moderate, ROM is painful, with flexion, with extension, CVA tenderness, is absent, vertebral tenderness, is not appreciated, Vital Signs: 21:31 BP 139 / 97; Pulse 87; Resp 17; Temp 98.4; Pulse Ox 96% ; Weight 147.42 kg; Height 6 me1 ft. 3 in. ; Pain 10; 21:31 Body Mass Index 40.62 (147.42 kg, 190.5 cm) me1 21:31 Pain Scale: Adult me1 MDM: 21:30 Medical Screening Exam initiated ashlee 22:27 Differential diagnosis: arthritis, strain, fracture, sciatica, contusion, Herniated ashlee disc UTI. Data reviewed: vital signs, nurses notes, lab test result(s), radiologic studies, CT scan. Consideration of Admission/Observation Escalation of care including admission/observation considered. I considered the following discharge prescriptions or medication management in the emergency department Medications were administered in the Emergency Department. See MAR. Independent interpretation of the following test(s) in the Emergency Department CT Scan: My interpretation is ct lumbar. Test considered but Not performed: MRI: no mri , not available. Historians other than the Patient: Spouse/Significant Other: well informed. Care significantly affected by the following chronic conditions: Hypertension, Obesity, brain aneurysm. 07/24 21:31 Order name: CBC with Diff; Complete Time: 23:02 [facility] 07/24 20:31 Order name: Comprehensive Metabolic Panel; Complete Time: 23:34 [facility] 07/24 21:31 Order name: Urinalysis w/ reflexes [facility] 07/24 20:31 Order name: CT Lumbar Spine Wo Con; Complete Time: 23:02 [facility] Administered Medications: 23:01 Drug: NS 0.9% IV 500 ml 500 ml IV at 1 bolus once; to be given as a bolus over 30 jb4 minutes Volume: 500 ml; Route: IV; Rate: 1 bolus; Site: right antecubital; 23:41 Follow up: Response: No adverse reaction; IV Status: Completed infusion; IV Intake: jb4 500ml 23:18 Drug: Ketorolac IVP 30 mg IVP once Route: IVP; Site: right antecubital; jb4 23:40 Follow up: Response: No adverse reaction; Marked relief of symptoms; Pain is decreased jb4 23:18 Drug: Diazepam PO 10 mg PO once Route: PO; jb4 23:40 Follow up: Response: No adverse reaction jb4 23:18 Drug: Decadron - Dexamethasone IVP 10 mg IVP once Route: IVP; Site: right antecubital; jb4 23:40 Follow up: Response: No adverse reaction; Marked relief of symptoms jb4 23:40 Not Given (Patient Refused): morphineor iv 4 mg IVP once over 4 mins jb4 23:40 Not Given (Patient Refused): ondansetron 4 mg IVP once; over 2 minutes jb4 Disposition Summary: 07/24/24 23:02 Discharge Ordered Notes: Location: Home ashlee Problem: new ashlee Symptoms: have improved ashlee Condition: Stable ashlee Diagnosis - Lumbago with sciatica, left side ashlee - Other injury of muscle, fascia and tendon of lower back ashlee - Sciatica, left side ashlee - Obesity, unspecified ashlee Followup: ashlee - With: Private Physician - When: 2 - 3 days - Reason: Recheck today's complaints, Continuance of care, Re-evaluation by your physician Followup: ashlee - With: Francisco Javier Pack MD - When: 2 - 3 days - Reason: Recheck today's complaints, Re-evaluation by your physician Discharge Instructions: - Discharge Summary Sheet ashlee - Obesity, Adult ashlee - Sciatica ashlee - Sciatica, [id number] ashlee - Radicular Pain ashlee - Back Exercises ashlee Forms: - Medication Reconciliation Form ashlee - Antibiotic Education ashlee - Prescription Opioid Use ashlee - Patient Portal Instructions [facility] - Leadership Thank You Letter [facility] Prescriptions: - acetaminophen-codeine 300-30 mg Oral tablet - take 2 tablet ORAL route every 6 hours as needed for pain; 20 tablet; Refills: ashlee 0, Product Selection Permitted - dexamethasone 4 mg Oral tablet - take 1 tablet ORAL route once daily; 4 tablet; Refills: 0, Product Selection ashlee Permitted - Valium 5 mg Oral Tablet - take 1 tablet ORAL route every 8 hours As needed; 20 tablet; Refills: 0, ashlee Product Selection Permitted - Diclofenac Sodium 75 mg Oral Tablet Sustained Release - take 1 tablet ORAL route 2 times per day; 30 tablet; Refills: 0, Product ashlee Selection Permitted Signatures: [facility] Ric Vargas MD MD cha Bryson, James, RN RN jb4 Mary Estrella, RN RN me1 Corrections: (The following items were deleted from the chart) 21:32 21:32 CBC+H.LAB.BRZ ordered. EDMS EDMS 21:32 21:32 COMPREHENSIVE METABOLIC PANEL+C.LAB.BRZ ordered. EDMS EDMS 21:32 21:32 Urinalysis+U.LAB.BRZ ordered. EDMS EDMS 21: 21:32 Spine Lumbar Wo Con+CT.RAD.BRZ ordered. EDMS EDMS
--- NOTE | 2024-07-24 23:03 | ER ---
Nurse's Notes [facility] Name: Winston Garcia Age: 69 yrs Sex: Male : 1955 Arrival Date: 07/24/2024 Time: 21:18 Bed 19 Private MD: Diagnosis: Lumbago with sciatica, left side;Other injury of muscle, fascia and tendon of lower back;Sciatica, left side;Obesity, unspecified Presentation: 07/24 21:31 Chief complaint: Patient states: he was moving some cases of water today and started me1 having left lower back pain that radiates down the back of his left leg. 03/18. Coronavirus screen: Vaccine status: Patient reports receiving the 2nd dose of the covid vaccine. Ebola Screen: No symptoms or risks identified at this time. Initial Sepsis Screen: Does the patient meet any 2 criteria? No. Patient's initial sepsis screen is negative. Does the patient have a suspected source of infection? No. Patient's initial sepsis screen is negative. Risk Assessment: Do you want to hurt yourself or someone else? Patient reports no desire to harm self or others. Onset of symptoms was July 24, 2024 at 15:00. 21:31 Method Of Arrival: Wheelchair in1 21:31 Acuity: LOBITO 4 me1 Triage Assessment: 21:33 General: Appears uncomfortable, obese, well groomed, well developed, Behavior is calm, me1 cooperative, appropriate for age. Pain: Complains of pain in left low back Pain radiates to left hamstring Pain currently is 10 out of 10 on a pain scale. Quality of pain is described as sharp, shooting, Pain began suddenly, Is continuous. EENT: No signs and/or symptoms were reported regarding the EENT system. Neuro: Level of Consciousness is awake, alert, obeys commands, Oriented to person, place, time, situation, Appropriate for age. Cardiovascular: Patient's skin is warm and dry. Respiratory: Airway is patent Respiratory effort is even, unlabored, Respiratory pattern is regular, symmetrical. GI: No signs and/or symptoms were reported involving the gastrointestinal system. : No signs and/or symptoms were reported regarding the genitourinary system. Derm: Skin is intact, is healthy with good turgor, Skin is pink, warm \T\ dry. Musculoskeletal: Reports pain in left low back. Historical: - Allergies: 21:33 No Known Drug Allergies; me1 - PMHx: 21:33 brain aneurysm; Hyperlipidemia; Hypertension; me1 - PSHx: 21:33 Appendectomy; me1 - Immunization history:: Adult Immunizations up to date. - Infectious Disease History:: Denies. - Social history:: Smoking status: Patient/guardian denies using tobacco, but has a distant history of tobacco abuse. - Family history:: not pertinent. Screenin:39 [facility] ED Fall Risk Assessment (Adult) History of falling in the last 3 months, jb4 including since admission No falls in past 3 months (0 pts) Confusion or Disorientation No (0 pts) Intoxicated or Sedated No (0 pts) Impaired Gait No (0 pts) Mobility Assist Device Used No (0 pt) Altered Elimination No (0 pt) Score/Fall Risk Level 0 - 2 = Low Risk Oriented to surroundings, Maintained a safe environment. Abuse screen: Denies threats or abuse. Nutritional screening: No deficits noted. Tuberculosis screening: No symptoms or risk factors identified. Assessment: 22:30 General: Appears in no apparent distress. comfortable, Behavior is calm, cooperative, jb4 appropriate for age. Pain: Complains of pain in left low back Pain radiates to left leg Pain currently is 10 out of 10 on a pain scale. Neuro: Level of Consciousness is awake, alert, obeys commands, Oriented to person, place, time, situation. Cardiovascular: Patient's skin is warm and dry. Respiratory: Airway is patent Respiratory effort is even, unlabored, Respiratory pattern is regular, symmetrical. Derm: Skin is intact, Skin is pink, warm \T\ dry. Musculoskeletal: Circulation, motion, and sensation intact. Range of motion: intact in all extremities. 23:19 Reassessment: Patient appears in no apparent distress at this time. Patient and/or jb4 family updated on plan of care and expected duration. Pain level reassessed. Patient is alert, oriented x 3, equal unlabored respirations, skin warm/dry/pink. D/c pending completion of IV fluids. Vital Signs: 21:31 BP 139 / 97; Pulse 87; Resp 17; Temp 98.4; Pulse Ox 96% ; Weight 147.42 kg; Height 6 me1 ft. 3 in. ; Pain 10/10; 21:31 Body Mass Index 40.62 (147.42 kg, 190.5 cm) me1 21:31 Pain Scale: Adult in1 ED Course: 21:29 Patient arrived in ED. im 21:30 Ric Vargas MD is Attending Physician. ashlee 21:33 Triage completed. me1 21:33 Arm band placed on Patient placed in waiting room. me1 22:18 Inserted saline lock: 20 gauge in right antecubital area, using aseptic technique. jb4 Blood collected. 22:24 Comprehensive Metabolic Panel Sent. jb4 22:24 CBC with Diff Sent. jb4 22:29 CT Lumbar Spine Wo Con In Process Unspecified. EDMS 23:02 Francisco Javier Pack MD is Referral Physician. ashlee 23:39 Patient has correct armband on for positive identification. Bed in low position. Call jb4 light in reach. Side rails up X 1. Provided Education on: discharge instructions.. 23:39 No provider procedures requiring assistance completed. IV discontinued, intact, jb4 bleeding controlled, No redness/swelling at site. Pressure dressing applied. Administered Medications: 23:01 Drug: NS 0.9% IV 500 ml 500 ml IV at 1 bolus once; to be given as a bolus over 30 jb4 minutes Volume: 500 ml; Route: IV; Rate: 1 bolus; Site: right antecubital; 23:41 Follow up: Response: No adverse reaction; IV Status: Completed infusion; IV Intake: jb4 500ml 23:18 Drug: Ketorolac IVP 30 mg IVP once Route: IVP; Site: right antecubital; jb4 23:40 Follow up: Response: No adverse reaction; Marked relief of symptoms; Pain is decreased jb4 23:18 Drug: Diazepam PO 10 mg PO once Route: PO; jb4 23:40 Follow up: Response: No adverse reaction jb4 23:18 Drug: Decadron - Dexamethasone IVP 10 mg IVP once Route: IVP; Site: right antecubital; jb4 23:40 Follow up: Response: No adverse reaction; Marked relief of symptoms jb4 23:40 Not Given (Patient Refused): morphineor iv 4 mg IVP once over 4 mins jb4 23:40 Not Given (Patient Refused): ondansetron 4 mg IVP once; over 2 minutes jb4 Medication: 23:39 VIS not applicable for this client. jb4 Intake: 23:41 IV: 500ml; Total: 500ml. jb4 Outcome: 23:02 Discharge ordered by . ashlee 23:39 Discharged to home ambulatory, jb4 23:39 Condition: stable 23:39 Discharge instructions given to patient, Instructed on discharge instructions, follow up and referral plans. no drinking with medication, no driving heavy equipment, medication usage, Demonstrated understanding of instructions, follow-up care, medications, Prescriptions given X 4, :41 Patient left the ED. jb4 Signatures: Dispatcher [employer] EDMS Ric Vargas MD MD cha Bryson, James, RN RN jb4 Joy Rendon Michelle, RN RN me1
[2024-07-24 23:04] LABS: Albumin 3.4 g/dL (3.4-5.0); Albumin/Globulin Ratio 0.9 (1.1-1.8); Anion Gap 6.1 mEq/L (5.0-15.0); Bilirubin Total 0.4 mg/dL (0.2-1.0); Potassium 4.1 mEq/L (3.5-5.1); Protein, Total 7.4 g/dL (6.4-8.2)
[2024-07-24] MEDS ORDERED: KETOROLAC 30 MG/ML INJ ONE (23:07)
[2024-07-24] MEDS ORDERED: dexAMETHasone 10 MG/ML VIAL ONE (23:07)
[2024-07-24] MEDS ORDERED: DIAZEPAM 5 MG TABLET ONE (23:07)
[2024-07-24 23:55] VITALS: BP 139/97; TEMP 98.4; O2SAT 96
[2024-07-25 02:03] LABS: Specific Gravity 1.011 (1.005-1.030); Sqamous Epithelial <5 /HPF (None Seen); Urine Bacteria <20 /HPF (<20); Urine Bilirubin NEGATIVE (Negative); Urine Blood Negative (Negative); Urine Clarity Turbid (Clear); Urine Color Colorless (Yellow); Urine Culture Reflex Order NOT NEEDED; Urine Glucose NEGATIVE (Negative); Urine Ketones NEGATIVE (Negative); Urine Microscopic Reflex YN ORDER UMIC; Urine Mucus Slight /HPF (None Seen); Urine Nitrite NEGATIVE (Negative); Urine Protein NEGATIVE (Negative); Urine RBC <5 /HPF (None Seen); Urine Urobilinogen Normal (Normal); Urine WBC <5 /HPF (<5); Urine pH 7.5 (5.0-7.0)
== END 2024-07-24 23:41 | disposition home or self-care (01) ==
LOC: ER 21:18
DX: M54.42 Lumbago with sciatica, left side (principal); S39.092A Other injury of muscle, fascia and tendon of lower back, initial encounter; E66.9 Obesity, unspecified
CPT/HCPCS: 96361; 85025; 81001; 36415; 80053; 72131; 96375; 96374; 99284; J1100; J7040

== ENCOUNTER 2024-07-26 20:56 | Inpatient (IN) | payer OTHER ==
[2024-07-26] MEDS ORDERED: ONDANSETRON 4 MG/2 ML VIAL ONE (23:31)
[2024-07-26] MEDS ORDERED: methocarbamoL 750 MG TAB ONE (23:32)
[2024-07-26] MEDS ORDERED: MORPHINE 4 MG/ML SYR ONE (23:32)
--- NOTE | 2024-07-27 00:47 | RAD REPORT ---
EXAM: CT Lumbar Spine Without Intravenous Contrast CLINICAL HISTORY: back injury TECHNIQUE: Axial computed tomography images of the lumbar spine without intravenous contrast. Sagittal and cor onal reformatted images were created and reviewed. This CT exam was performed using one or more of the following dose reduction techniques: automated exposure control, adjustment of the mA and/or kV according to patient size, and/or use of iterative reconstruction technique. COMPARISON: CT Lumbar Spine dated 07/24/2024 FINDINGS: Vertebrae: There are 5 nonrib-bearing lumbar-type vertebral bodies. No acute fracture or subluxatio n. Discs/spinal canal/neural foramina: Multilevel degenerative changes manifested by small to moderate anterior and lateral disc osteophytes, mild broad-based disc bulges and mild to moderate facet arthropathy. Prior anterior fusion and interposition graft placement at L5-S1. No critical canal sten osis. Soft tissues: Unremarkable. IMPRESSION: No acute injury. Electronically signed by: Suzi Castano MD 07/27/2024 12:36 AM [facility] Due to temporary technical issues with the PACS/[employer] reporting system, reports are being feliciano d by the in-house radiologist without review as a courtesy to ensure prompt reporting the interpreting radiologist is fully responsible for the content of the report. Transcribed Date/Time: 07/27/2024 12:47 AM
--- NOTE | 2024-07-27 00:55 | RAD REPORT ---
Clinical Indication: Bed Name: IW3. Pelvic pain Comparison: June 27, 2023. TECHNIQUE: Noncontrast helical imaging was performed without oral or IV contrast from the lower abdom en to the symphysis pubis regions. Multiplanar reformations are obtained. Coronal and sagittal reformats were performed and provided as separate series. CT Radiation Dose: DLP = 2833.9 mGy-cm All CT scans at this location are performed using dose optimization techniques as appropriate to perf orm the study. Radiation dose reduction technique was utilized including one or more of the following: Automated exp osure control, adjustment of the mA and/or kV according to patient size and use of iterative reconstruction technique. FINDINGS: This examination is limited for the evaluation of solid organs and vascular structures due to lack of intravenous contrast. BOWEL: The non-contrast opacified small bowel loops in the abdomen and pelvis appear unremarkable. Th e noncontrast opacified colonic loops in the abdomen and pelvis appear unremarkable. APPENDIX: Not well seen on the exam. PERITONEUM AND RETROPERITONEUM: No ascites or free air. No loculated fluid collection is noted. The a bdominal aorta is normal in caliber. LYMPH NODES: Unremarkable. PELVIS: No pelvic mass or adenopathy. The prostate is unremarkable. The prostate measures 5.6 x 4. 7 cm in cross-section. BLADDER: Unremarkable. OSSEOUS STRUCTURES: No acute abnormality seen. No acute pelvic fracture is noted. No acute hip fractu res are noted. L5-S1 anterior fixation is noted. SOFT TISSUES: Small left inguinal hernia with note is noted containing fat only. There is diffuse ski n thickening with subcutaneous fat stranding in the scrotum, predominantly along the right testes. No definite loculated collection is seen. Findings are suggestive of cellulitis. No gas densities are noted in the soft tissues. Overall this appears minimally improved compared to June 27, 2023. IMPRESSION: 1. No acute pelvic or hip fracture is seen. 2. Diffuse skin thickening with subcutaneous fat stranding of the scrotum. No gas densities are noted in the soft tissues. Electronically signed by: Gabriele Ellington MD 07/27/2024 12:49 AM [facility] Due to temporary technical issues with the PACS/[employer] reporting system, reports are being feliciano d by the in-house radiologist without review as a courtesy to ensure prompt reporting the interpreting radiologist is fully responsible for the content of the report. Transcribed Date/Time: 07/27/2024 12:55 AM
[2024-07-27] MEDS ORDERED: PROMETHAZINE 25 MG TABLET ONE (01:15)
[2024-07-27] MEDS ORDERED: HYDROCODONE/APAP 10/325 TAB ONE (01:16)
[2024-07-27] MEDS ORDERED: KETOROLAC 30 MG/ML INJ ONE (01:16)
[2024-07-27] MEDS ORDERED: DIAZEPAM 5 MG TABLET ONE (01:16)
[2024-07-27 01:43] LABS: Absolute Basophils 0.1 K/uL (0-0.5); Absolute Lymphocytes (CBC) 2.4 K/uL (0.7-4.9); Absolute Monocytes 1.2 K/uL (0.1-1.3); Absolute Neutrophil 7.4 K/uL (1.8-8.0); Basophils % 0.6 % (0-1.3); Eosinophils % 0.4 % (0-4.4); Hematocrit 41.2 % (39.6-49.0); Lymphocytes % 21.2 % (15.3-44.8); MCHC 33.9 g/dL (32.0-36.0); MCV 94.4 fL (80-100); MPV 8.1 fL (7.6-11.3); Neutrophils % 66.8 % (41.7-73.7); Platelets 249 thou/uL (152-406); RBC Red Blood Cell Count 4.37 M/uL (4.33-5.43); Red Cell Distribution Width 14.4 % (12.1-15.2)
[2024-07-27 01:54] LABS: ALT/SGPT 25 U/L (16-61); Albumin 3.2 g/dL (3.4-5.0); Albumin/Globulin Ratio 0.8 (1.1-1.8); Alkaline Phosphatase 85 U/L (45-117); BUN Blood Urea Nitrogen 19 mg/dL (7-18); Bicarbonate 28 mEq/L (21-32); Bilirubin Total 0.3 mg/dL (0.2-1.0); Creatine Phosphokinase 106 U/L (39-308); Globulin 3.8 g/dL (2.3-3.5); Glomerular Filtration Rate 82 ml/min (=/>90); Glucose Level 155 mg/dL (74-106); NT PRO-BNP 303 pg/mL (<125); Sodium Level 141 mEq/L (136-145); Troponin High Sensitivity 7.2 pg/mL (<58.9)
[2024-07-27 01:56] LABS: AST/SGOT < 10 U/L (15-37)
--- NOTE | 2024-07-27 02:34 | EDPHYS ---
Physician Documentation [facility] Name: Winston Garcia Age: 69 yrs Sex: Male : 1955 Arrival Date: 07/26/2024 Time: 20:56 Bed 13 Private MD: ED Physician Milind Peters HPI: 07/26 21:14 This 69 yrs old Male presents to ER via Wheelchair with complaints of Low Back Pain. sp4 07/27 22:14 69 year-old male presents with acute fall at home., and developed Moderate to severe sp4 back pain and left buttock pain. Patient presents with lower severe left back pain with radiation down the left leg. Patient has difficult time standing up and not able to ambulate without assistance . Historical: - Allergies: 07/26 21:11 No Known Allergies; bm8 - Home Meds: 21:11 Lexapro Oral [Active]; Lipitor Oral [Active]; losartan Oral [Active]; sildenafil Oral bm8 [Active]; Zoloft Oral [Active]; - PMHx: 21:11 brain aneurysm; Hyperlipidemia; Hypertension; bm8 - PSHx: 21:11 Appendectomy; bm8 - Immunization history:: Adult Immunizations up to date. - Infectious Disease History:: Denies. - Social history:: Smoking status: Patient denies any tobacco usage or history of. Patient/guardian denies using alcohol, street drugs. - Family history:: not pertinent. ROS: 07/27 22:14 Constitutional: Negative for fever, chills, and weight loss, positive lower back pain sp4 positive left leg pain All other systems are negative, Exam: 22:14 Constitutional: This is a well developed, well nourished patient who is awake, alert, sp4 morbidly obese male in moderate distress secondary to pain Head/Face: Normocephalic, atraumatic. Eyes: Pupils equal round and reactive to light, extra-ocular motions intact. Lids and lashes normal. Conjunctiva and sclera are not injected. Cornea within normal limits. Periorbital areas with no swelling, redness, or edema. ENT: Nares patent. No nasal discharge, no septal abnormalities noted. Tympanic membranes are normal and external auditory canals are clear. Oropharynx with no redness, swelling, or masses, exudates, or evidence of obstruction, uvula midline. Mucous membranes moist. Neck: Trachea midline, no thyromegaly or masses palpated, and no cervical lymphadenopathy. Supple, full range of motion without nuchal rigidity, or vertebral point tenderness. Chest/axilla: Normal chest wall appearance and motion. Nontender with no deformity. No lesions are appreciated. Cardiovascular: Regular rate and rhythm with a normal S1 and S2. No gallops, murmurs, or rubs. Normal PMI, no JVD. No pulse deficits. Respiratory: Lungs have equal breath sounds bilaterally, clear to auscultation and percussion. No rales, rhonchi or wheezes noted. No increased work of breathing, no retractions or nasal flaring. Abdomen/GI: Soft, with normal bowel sounds. No distension or tympany. No guarding or rebound. No evidence of tenderness throughout. Back: No spinal tenderness. No costovertebral tenderness. Skin: Warm, dry with normal turgor. Normal color with no rashes, no lesions, and no evidence of cellulitis. MS/ Extremity: Pulses equal, no cyanosis. Neurovascular intact. Full, normal range of motion. Neuro: Awake and alert, GCS 15, oriented to person, place, time, and situation. Cranial nerves II-XII grossly intact. Motor strength 5/5 in all extremities. Sensory grossly intact. Psych: Awake, alert, with orientation to person, place and time. Behavior, mood, and affect are within normal limits Vital Signs: 07/26 21:09 BP 158 / 87; Pulse 77; Resp 18; Temp 98.5; Pulse Ox 95% ; Weight 149.69 kg; Height 6 bm8 ft. 3 in. ; Pain 10/10; 07/27 01:00 BP 119 / 72; Pulse 66; Resp 16; Pulse Ox 93% on R/A; jb4 07/26 21:09 Body Mass Index 41.25 (149.69 kg, 190.5 cm) bm8 07/26 21:09 Pain Scale: Adult bm8 [place] Coma Score: 22:14 Eye Response: spontaneous(4). Motor Response: obeys commands(6). Verbal Response: sp4 oriented(5). Total: 15. MDM: 07/26 21:27 Medical Screening Exam initiated sp4 07/27 01:02 ED course: EXAM: CT Lumbar Spine Without Intravenous Contrast CLINICAL HISTORY: back sp4 injury TECHNIQUE: Axial computed tomography images of the lumbar spine without intravenous contrast. Sagittal and coronal reformatted images were created and reviewed. This CT exam was performed using one or more of the following dose reduction techniques: automated exposure control, adjustment of the mA and/or kV according to patient size, and/or use of iterative reconstruction technique. COMPARISON: CT Lumbar Spine dated 07/24/2024 FINDINGS: Vertebrae: There are 5 nonrib-bearing lumbar-type vertebral bodies. No acute fracture or subluxation. Discs/spinal canal/neural foramina: Multilevel degenerative changes manifested by small to moderate anterior and lateral disc osteophytes, mild broad-based disc bulges and mild to moderate facet arthropathy. Prior anterior fusion and interposition graft placement at L5-S1. No critical canal stenosis. Soft tissues: Unremarkable. IMPRESSION: No acute injury. . ED course: CT Radiation Dose: DLP = 2833.9 mGy-cm All CT scans at this location are performed using dose optimization techniques as appropriate to perform the study. Radiation dose reduction technique was utilized including one or more of the following: Automated exposure control, adjustment of the mA and/or kV according to patient size and use of iterative reconstruction technique. FINDINGS: This examination is limited for the evaluation of solid organs and vascular structures due to lack of intravenous contrast. BOWEL: The non-contrast opacified small bowel loops in the abdomen and pelvis appear unremarkable. The noncontrast opacified colonic loops in the abdomen and pelvis appear unremarkable. APPENDIX: Not well seen on the exam. PERITONEUM AND RETROPERITONEUM: No ascites or free air. No loculated fluid collection is noted. The abdominal aorta is normal in caliber. LYMPH NODES: Unremarkable. PELVIS: No pelvic mass or adenopathy. The prostate is unremarkable. The prostate measures 5.6 x 4.7 cm in cross-section. BLADDER: Unremarkable. OSSEOUS STRUCTURES: No acute abnormality seen. No acute pelvic fracture is noted. No acute hip fractures are noted. L5- S1 anterior fixation is noted. SOFT TISSUES: Small left inguinal hernia with note is noted containing fat only. There is diffuse skin thickening with subcutaneous fat stranding in the scrotum, predominantly along the right testes. No definite loculated collection is seen. Findings are suggestive of cellulitis. No gas densities are noted in the soft tissues. Overall this appears minimally improved compared to June 27, 2023. IMPRESSION: 1. No acute pelvic or hip fracture is seen. 2. Diffuse skin thickening with subcutaneous fat stranding of the scrotum. No gas densities are noted in the soft tissues.. 22:18 Differential diagnosis: arthritis, strain, fracture, sciatica, contusion, Herniated sp4 disc UTI. Data reviewed: vital signs, nurses notes, old medical records, lab test result(s), radiologic studies, CT scan. 22:18 Consideration of Admission/Observation Escalation of care including sp4 admission/observation considered. ED course: Patient after multiple rounds of medications was not able to ambulate by himself. Reports persistent moderate to severe pain. Patient was admitted for pain control. 07/27 01:12 Order name: CBC with Diff; Complete Time: : sp4 07/27 01:12 Order name: CMP; Complete Time: : sp4 07/27 01:12 Order name: CK; Complete Time: : sp4 07/27 01:12 Order name: Troponin High Sensitivity; Complete Time: : sp4 07/27 01:12 Order name: BNP; Complete Time: : sp4 07/26 22:36 Order name: CT Lumbar Spine Wo Con; Complete Time: 22:14 sp4 07/26 22:36 Order name: CT Pelvis wo Cont; Complete Time: 22:14 sp4 Administered Medications: 07/26 23:42 Drug: Methocarbamol PO 1500 mg PO once Route: PO; 4 07/27 01:12 Follow up: Response: No adverse reaction; Marked relief of symptoms; Pain is decreased 4 07/26 23:43 Drug: morphine IVP or IV 8 mg IVP once over 4 mins Route: IVP; Infused Over: 4 mins; jb4 Site: right antecubital; 07/27 01:11 Follow up: Response: No adverse reaction; Marked relief of symptoms; Pain is decreased 4 07/26 23:43 Drug: Ondansetron IVP 8 mg IVP once; over 2 minutes Route: IVP; Site: right antecubital;4 07/27 01:11 Follow up: Response: No adverse reaction; Marked relief of symptoms jb4 01:22 Drug: Promethazine PO 25 mg PO once Route: PO; jb4 03:15 Follow up: Response: No adverse reaction cp4 01:22 Drug: Diazepam PO 5 mg PO once Route: PO; jb4 03:15 Follow up: Response: No adverse reaction cp4 01:23 Drug: [place] PO 10 mg-325 mg 2 tabs PO once Route: PO; jb4 03:15 Follow up: Response: No adverse reaction; Pain is decreased cp4 01:23 Drug: Ketorolac IVP 30 mg IVP once Route: IVP; Site: right antecubital; jb4 03:15 Follow up: Response: No adverse reaction cp4 Disposition Summary: 07/27/24 02:34 Hospitalization Ordered Notes: Hospitalization Status: Observation sp4 Provider: David Venegas sp4 Condition: Stable sp4 Problem: new sp4 Symptoms: have improved sp4 Bed/Room Type: Standard 4 Location: Telemetry/MedSurg (observation)(07/27/24 02:56) Room Assignment: 429(07/27/24 02:56) Diagnosis - Low back pain sp4 - Acute intractable lower back pain, acute left lumbar radiculopathy, acute fall at sp4 home. Poor ambulatory status. Balance disorder Forms: - Medication Reconciliation Form sp4 - SBAR form sp4 - Leadership Thank You Letter sp4 Signatures: Dispatcher [employer] Sammi Conner RN RN Polo Cheatham RN ROSIE jb4 Yoanna Green RN RN lg3 Potepalov, Sergey, MD MD sp4 Vj Jorge RN RN [email or web address] Precious Tobar 4 Corrections: (The following items were deleted from the chart) 02:53 02:34 Telemetry/MedSurg (observation) sp4 lg3 02:53 02:34 sp4 lg3 02:56 02:53 [facility] ER HOLD lg3 kl 02:56 02:53 ERHOLD- lg3 kl
--- NOTE | 2024-07-27 02:34 | ER ---
Nurse's Notes [facility] Name: Winston Garcia Age: 69 yrs Sex: Male : 1955 Arrival Date: 07/26/2024 Time: 20:56 Bed 13 Private MD: Diagnosis: Low back pain;Acute intractable lower back pain, acute left lumbar radiculopathy, acute fall at home. Poor ambulatory status. Balance disorder Presentation: 07/26 21:09 Chief complaint: Patient states: I lifted a few water cases three days and came into ER bm8 to be checked out because of the pain, but now the pain is back and worse so I came back, ya know. Coronavirus screen: Vaccine status: Patient reports receiving the 2nd dose of the covid vaccine. Ebola Screen: Patient negative for fever greater than or equal to 101.5 degrees Fahrenheit, and additional compatible Ebola Virus Disease symptoms Patient denies exposure to infectious person. Patient denies travel to an Ebola-affected area in the 21 days before illness onset. No symptoms or risks identified at this time. Initial Sepsis Screen: Does the patient meet any 2 criteria? No. Patient's initial sepsis screen is negative. Does the patient have a suspected source of infection? No. Patient's initial sepsis screen is negative. Risk Assessment: Do you want to hurt yourself or someone else? Patient reports no desire to harm self or others. Onset of symptoms was July 23, 2024 at 12:00. 21:09 Method Of Arrival: Wheelchair bm8 21:09 Acuity: LOBITO 3 bm8 Triage Assessment: 21:11 General: Appears in no apparent distress. uncomfortable, Behavior is calm, cooperative, bm8 appropriate for age. Pain: Complains of pain in left low back, left mid back, right mid back and right low back Pain currently is 10 out of 10 on a pain scale. Aggravated by exercise, increased activity, weight bearing. Neuro: No deficits noted. Level of Consciousness is awake, alert, obeys commands, Oriented to person, place, time, situation, Appropriate for age. Cardiovascular: Denies chest pain, Capillary refill < 3 seconds in bilateral fingers. Respiratory: Airway is patent Trachea midline Respiratory effort is even, unlabored, Respiratory pattern is regular, symmetrical. Musculoskeletal: Circulation, motion, and sensation intact. Capillary refill < 3 seconds, in bilateral fingers. Reports pain in left low back, left mid back, right mid back and right low back. Historical: - Allergies: 21:11 No Known Allergies; bm8 - Home Meds: 21:11 Lexapro Oral [Active]; Lipitor Oral [Active]; losartan Oral [Active]; sildenafil Oral bm8 [Active]; Zoloft Oral [Active]; - PMHx: 21:11 brain aneurysm; Hyperlipidemia; Hypertension; bm8 - PSHx: 21:11 Appendectomy; bm8 - Immunization history:: Adult Immunizations up to date. - Infectious Disease History:: Denies. - Social history:: Smoking status: Patient denies any tobacco usage or history of. Patient/guardian denies using alcohol, street drugs. - Family history:: not pertinent. Screenin/18 03:13 [facility] ED Fall Risk Assessment (Adult) History of falling in the last 3 months, cp4 including since admission Yes- single mechanical fall (1 pt) Confusion or Disorientation No (0 pts) Intoxicated or Sedated No (0 pts) Impaired Gait Yes (1 pt) Mobility Assist Device Used No (0 pt) Altered Elimination No (0 pt) Score/Fall Risk Level 0 - 2 = Low Risk Oriented to surroundings, Maintained a safe environment, Educated pt \T\ family on fall prevention, incl call for assistance when getting out of bed, Provided non-skid footwear, Used ambulatory aids as needed (educated on \T\ assisted with). Abuse screen: Denies threats or abuse. Denies injuries from another. Nutritional screening: No deficits noted. Tuberculosis screening: No symptoms or risk factors identified. Assessment: 07/26 23:44 Reassessment: Patient appears in no apparent distress at this time. Patient and/or jb4 family updated on plan of care and expected duration. Pain level reassessed. Patient is alert, oriented x 3, equal unlabored respirations, skin warm/dry/pink. 07/27 01:00 Reassessment: Patient appears in no apparent distress at this time. Patient and/or jb4 family updated on plan of care and expected duration. Pain level reassessed. Patient is alert, oriented x 3, equal unlabored respirations, skin warm/dry/pink. Vital Signs: 07/26 21:09 BP 158 / 87; Pulse 77; Resp 18; Temp 98.5; Pulse Ox 95% ; Weight 149.69 kg; Height 6 bm8 ft. 3 in. ; Pain 10/10; 07/27 01:00 BP 119 / 72; Pulse 66; Resp 16; Pulse Ox 93% on R/A; jb4 07/26 21:09 Body Mass Index 41.25 (149.69 kg, 190.5 cm) bm8 07/26 21:09 Pain Scale: Adult bm8 Lorenzo Coma Score: 22:14 Eye Response: spontaneous(4). Motor Response: obeys commands(6). Verbal Response: sp4 oriented(5). Total: 15. ED Course: 07/26 20:58 Patient arrived in ED. jj6 21:11 Triage completed. bm8 21:11 Arm band placed on right wrist. bm8 21:14 Milind Peters MD is Attending Physician. sp4 23:05 CT Lumbar Spine Wo Con In Process Unspecified. EDMS 23:05 CT Pelvis wo Cont In Process Unspecified. EDMS 23:35 Inserted saline lock: 20 gauge in right antecubital area, using aseptic technique. rk3 07/27 01:30 BNP Sent. rk3 01:30 Troponin High Sensitivity Sent. rk3 01:30 CK Sent. rk3 01:31 CMP Sent. rk3 01:31 CBC with Diff Sent. rk3 02:33 David Venegas MD is Hospitalizing Provider. sp4 03:13 Bed in low position. Call light in reach. Side rails up X2. Provided Education on: cp4 admission. 03:13 No provider procedures requiring assistance completed. cp4 Administered Medications: 07/26 23:42 Drug: Methocarbamol PO 1500 mg PO once Route: PO; jb4 07/27 01:12 Follow up: Response: No adverse reaction; Marked relief of symptoms; Pain is decreased 4 07/26 23:43 Drug: morphine IVP or IV 8 mg IVP once over 4 mins Route: IVP; Infused Over: 4 mins; 4 Site: right antecubital; 07/27 01:11 Follow up: Response: No adverse reaction; Marked relief of symptoms; Pain is decreased 4 07/26 23:43 Drug: Ondansetron IVP 8 mg IVP once; over 2 minutes Route: IVP; Site: right antecubital;4 07/27 01:11 Follow up: Response: No adverse reaction; Marked relief of symptoms jb4 01:22 Drug: Promethazine PO 25 mg PO once Route: PO; jb4 03:15 Follow up: Response: No adverse reaction cp4 01:22 Drug: Diazepam PO 5 mg PO once Route: PO; jb4 03:15 Follow up: Response: No adverse reaction cp4 01:23 Drug: [place] PO 10 mg-325 mg 2 tabs PO once Route: PO; jb4 03:15 Follow up: Response: No adverse reaction; Pain is decreased cp4 01:23 Drug: Ketorolac IVP 30 mg IVP once Route: IVP; Site: right antecubital; jb4 03:15 Follow up: Response: No adverse reaction cp4 Medication: 03:13 VIS not applicable for this client. cp4 Outcome: 02:34 Decision to Hospitalize by Provider. sp4 04:30 Patient left the ED. sb4 Signatures: Dispatcher [employer] EDMS Polo Rosario, RN RN jb4 Clair Gardinerj6 Cheri Spain, PA-C PA-C sb4 Milind Peters MD MD sp4 Precious Tobar cp4 Vj Jorge RN RN bm8 Carlie Del Rio rk3
--- NOTE | 2024-07-27 02:43 | P.HP ---
Certification for Inpatient Patient admitted to: Observation With expected LOS: <2 Midnights Patient will require the following post-hospital care: None Practitioner: I am a practitioner with admitting privileges, knowledge of patient current condition, hospital course, and medical plan of care. Services: Services provided to patient in accordance with Admission requirements found in Title 42 Section 412.3 of the Code of Federal Regulations <Cheri Spain - Last Filed: 07/27/24 02:53> Patient History Date of Service: 07/27/24 Primary Care Provider: Abbie Reason for admission: Intractable back pain History of Present Illness: Mr. Garcia is a 69 year old male with past medical history of hypertension and hyperlipidemia who presented to the emergency department with complaints of severe low back pain. He states that he injured himself 3 days ago picking up a case of water. He was seen in the ED then, pain had improved, then got worse again today. Reports the pain is in his left low back and radiates down his left leg. States the pain is so severe that he cannot walk. He denies any bowel or bladder incontinence nor saddle paresthesias. CT lumbar spine was obtained in the ED that showed "Multilevel degenerative changes manifested by small to moderate anterior and lateral disc osteophytes, mild broad-based disc bulges and mild to moderate facet arthropathy. Prior anterior fusion and interposition graft placement at L5-S1. No critical canal stenosis." He was given several doses of IV pain medication, muscle relaxers, antiinflammatories however his pain persisted. Due to his severe pain and inability to ambulate safely, ED provider wishes to admit patient for further management. Home medications list reviewed: Yes - Past Medical/Surgical History Diabetic: Yes -: Hypertension -: BRAIN ANUERYSM -: Borderline diabetes -: Hyperlipidemia -: Back surgery -: BRAIN SURGERY FOR ANEURYSMS Psychosocial/ Personal History: Patient is retired, lives with his - Family History Mother -: Cancer Notes: BREAST CANCER - Social History Alcohol use: Yes CD- Drugs: No Caffeine use: Yes Place of Residence: Home <Cheri Spain - Last Filed: 07/27/24 02:53> Date of Service: 07/27/24 <David Venegas - Last Filed: 07/29/24 08:13> Allergies No Known Drug Allergies Allergy (Verified 08/03/21 21:57) Unknown Home Medications: Baclofen [Lioresal*] 10 mg PO BID 06/22/23 Fluticasone Propionate [Flovent Diskus] 1 spray IH DAILY 06/22/23 Gabapentin [Neurontin*] 400 mg PO BID 06/22/23 Loratadine [Claritin*] 10 mg PO DAILY 06/22/23 Metformin ER [Glucophage ER*] 500 mg PO BID 06/22/23 Metoprolol Tartrate [Lopressor*] 50 mg PO BID 06/22/23 Montelukast [Singulair*] 10 mg PO BEDTIME 06/22/23 Tamsulosin [Flomax*] 1 cap PO DAILY 06/22/23 Diclofenac Sodium [Voltaren] 75 mg PO BIDP PRN 07/27/24 Omeprazole [Prilosec] 40 mg PO DAILY 07/27/24 Venlafaxine HCl [Effexor Xr] 37.5 mg PO DAILY 07/27/24 Review of Systems 10-point ROS is otherwise unremarkable Musculoskeletal: Back Pain <Cheri Spain - Last Filed: 07/27/24 02:53> Physical Examination - Vital Signs Temperature: 98.5 F Blood Pressure: 119/72 Pulse: 66 Respirations: 16 Pulse Ox (%): 93 - Physical Exam General: Alert, Mild distress HEENT: Atraumatic, Normocephalic Neck: Supple, No LAD Respiratory: Clear to auscultation bilaterally, Normal air movement Cardiovascular: Normal pulses, Regular rate/rhythm Gastrointestinal: Soft and benign, Non-distended Musculoskeletal: No clubbing, No swelling Integumentary: No rashes, No breakdown Neurological: Normal speech, Sensation intact, Other (gait limited secondary to pain) External genitalia: Deferred Rectal: Deferred - Studies Laboratory Data (last 24 hrs) 07/27/24 07/27/24 01:26 01:26 WBC 11.10 H Hgb 14.0 Hct 41.2 Plt Count 249 Sodium 141 Potassium 4.0 BUN 19 H Creatinine 1.00 Glucose 155 H Total Bilirubin 0.3 AST < 10 L ALT 25 Alkaline Phosphatase 85 <Cheri Spain - Last Filed: 07/27/24 02:53> Assessment and Plan - Problems (Diagnosis) (1) Intractable low back pain Current Visit: Yes Status: Acute Plan: MRI lumbar spine ordered IV dexamethasone x 1 Lidocaine patch PRN pain medications ordered- norco, ketorolac, robaxin Physical therapy consult Will need pain management follow up (2) HLD (hyperlipidemia) Current Visit: Yes Status: Chronic Plan: Continue home medications Qualifiers: Hyperlipidemia type: mixed hyperlipidemia Qualified Code(s): E78.2 - Mixed hyperlipidemia (3) HTN (hypertension) Current Visit: Yes Status: Chronic Plan: Continue home medications Qualifiers: Hypertension type: primary hypertension Qualified Code(s): I10 - Essential (primary) hypertension (4) Morbid (severe) obesity due to excess calories Current Visit: Yes Status: Chronic Plan: Encourage weight loss/lifestyle modifications - Plan Lovenox for DVT prophylaxis Discharge Plan: Home Plan to discharge in: 24 Hours - Advance Directives Does patient have a Living Will: No Does patient have a Durable POA for Healthcare: No - Code Status/Comfort Care Code Status Assessed: Yes Code Status: Full Code Critical Care: No Time Spent Managing Pts Care (In Minutes): 50 <Cheri Spain - Last Filed: 07/27/24 02:53> Date of Service: 07/27/24 Patient was seen and examined. Events of the last 24 hours have been noted. Spoke with with CRISTOBAL regarding patient's clinical picture after evaluating and examining the patient independently. I performed a substantial part of the MDM during this patient's care today. I personally made or approved the documented management plan and acknowledge its risk of complications. I agree with the findings and documentation provided in the CRISTOBAL's notes. <David Venegas - Last Filed: 07/29/24 08:13>
[2024-07-27] MEDS ORDERED: KETOROLAC 30 MG/ML INJ IV PRN (03:28)
[2024-07-27] MEDS: dexAMETHasone 10 MG/ML VIAL IV ONE (04:43)
[2024-07-27] MEDS: methocarbamoL 500 MG TAB PO PRN (04:44)
[2024-07-27] MEDS: HYDROCODONE/APAP 5/325 MG TAB PO PRN (04:44)
[2024-07-27 04:56] VITALS: BMI 41.2
[2024-07-27] MEDS: MORPHINE 4 MG/ML SYR IV ONE (05:01)
[2024-07-27] MEDS: LIDOCAINE 4% PATCH TOP SCH (07:31)
[2024-07-27] MEDS: KETOROLAC 30 MG/ML INJ IV PRN (07:31)
[2024-07-27 09:53] LABS: Specific Gravity > 1.030 (1.005-1.030); Sqamous Epithelial <5 /HPF (None Seen); Urine Bacteria None Seen /HPF (<20); Urine Bilirubin NEGATIVE (Negative); Urine Blood Negative (Negative); Urine Clarity Clear (Clear); Urine Color Yellow (Yellow); Urine Culture Reflex Order NOT NEEDED; Urine Glucose 3+ (Negative); Urine Ketones NEGATIVE (Negative); Urine Micro Reflex YN NO BILL MICROSCOPIC; Urine Mucus Slight /HPF (None Seen); Urine Nitrite NEGATIVE (Negative); Urine Protein TRACE (Negative); Urine RBC <5 /HPF (None Seen); Urine Urobilinogen Normal (Normal); Urine WBC <5 /HPF (<5); Urine pH 5.5 (5.0-7.0)
[2024-07-27] MEDS: dexAMETHasone 4 MG/ML VIAL IV SCH (12:08)
[2024-07-27] MEDS: methocarbamoL 500 MG TAB PO SCH (13:33)
--- NOTE | 2024-07-27 15:51 | RAD REPORT ---
EXAMINATION: Lumbar Spine Wo Con CLINICAL INDICATION: Male, 69 years old. low back pain TECHNIQUE: Multiplanar multisequence MR images were obtained of the lumbar spine without intravenous contrast. Unless otherwise specified, incidental findings do not require dedicated imaging follow-up. [id number]. COMPARISON: 07/26/2024 CT, MRI 02/05/2021 FINDINGS: For purposes of this dictation, it is assumed that there are 5 non rib-bearing lumbar type vertebrae, and the most caudal fully segmented lumbar vertebra is labeled L5. ALIGNMENT: The lumbar spine has normal alignment. BONE: Vertebral bodies are normal in height. There is a normal marrow signal pattern. CORD: No abnormal signal in the cord. The conus medullaris terminates at a normal level. The nerve ro ots of the cauda equina appear normal. SOFT TISSUE: The included paraspinal soft tissues and retroperitoneal structures are grossly normal. EVALUATION OF THE INDIVIDUAL LEVELS: L1-L2 :Disc is normal in height and signal intensity. No significant spinal canal or neural foraminal stenosis. L2-L3: Disc is normal in height and signal intensity. No significant spinal canal or neural foraminal stenosis. L3-L4: Disc is normal in height and signal intensity. No significant spinal canal or neural foraminal stenosis. L4-L5: Broad-based disc bulge with facet and ligamentum flavum hypertrophy results in moderate right neural foraminal narrowing. No significant central spinal stenosis. The left neural foramen is adequate. L5-S1: L5-S1 anterior fusion. Moderate disc height loss. There is also facet hypertrophy. The neural foramina are mildly narrowed bilaterally. A small posterior disc spur is noted. No significant central spinal stenosis. IMPRESSION: No significant lumbar spine abnormalities. Status post L5-S1 fusion. Degenerative changes above the f used level at L4-5 with moderate right neural foraminal narrowing which is similar to prior. No clinically significant central spinal stenosis identified.
[2024-07-27] MEDS: ENOXAPARIN 40 MG/0.4 ML SQ SCH (16:55)
[2024-07-27] MEDS ORDERED: HYDROMORPHONE HCL 0.5 MG/0.5 ML INJ IV PRN (19:18)
[2024-07-28] MEDS: METOPROLOL TAR 50 MG TAB PO ONE (01:07)
[2024-07-28] MEDS: METOPROLOL TAR 50 MG TAB PO SCH (08:59)
[2024-07-28] MEDS: TRAMADOL 37.5mg/APAP 325mg PER TAB PO PRN (13:30)
[2024-07-28] MEDS: NA CHLORIDE 0.9% 1,000 ML IV SCH (15:04)
--- NOTE | 2024-07-29 08:13 | P.PN ---
Date of Service: 07/28/24 Subjective Patient clinically doing well no new complaints. Clinical symptoms are stable. Physical Examination - Vital Signs reviewed - Physical Exam General: Alert, Mild distress Respiratory: Clear to auscultation bilaterally, Normal air movement Cardiovascular: Normal pulses, Regular rate/rhythm Gastrointestinal: Soft and benign, Non-distended Musculoskeletal: No clubbing, No swelling Integumentary: No rashes, No breakdown Neurological: Normal speech, Sensation intact, Other (gait limited secondary to pain) Assessment and Plan - Problems (Diagnosis) (1) Intractable low back pain Current Visit: Yes Status: Acute Plan: Continue with pain control. Continue with IV steroids. Switch over to p.o. steroids. Lumbar spine films were unremarkable. (2) HLD (hyperlipidemia) Current Visit: Yes Status: Chronic Plan: Continue home medications Qualifiers: Hyperlipidemia type: mixed hyperlipidemia Qualified Code(s): E78.2 - Mixed hyperlipidemia (3) HTN (hypertension) Current Visit: Yes Status: Chronic Plan: Continue home medications Qualifiers: Hypertension type: primary hypertension Qualified Code(s): I10 - Essential (primary) hypertension (4) Morbid (severe) obesity due to excess calories Current Visit: Yes Status: Chronic Plan: Encourage weight loss/lifestyle modifications - Plan Lovenox for DVT prophylaxis Discharge Plan: Home Plan to discharge in: 24 Hours - Advance Directives Does patient have a Living Will: No Does patient have a Durable POA for Healthcare: No - Code Status/Comfort Care Code Status Assessed: Yes Code Status: Full Code Critical Care: No Time Spent Managing Pts Care (In Minutes): 30
[2024-07-29] MEDS: HYDRALAZINE HCL 20 MG/ML VIAL IV ONE (08:20)
[2024-07-29 08:28] VITALS: TEMP 97.5
[2024-07-29 09:18] VITALS: O2SAT 98
[2024-07-29] MEDS: HYDRALAZINE HCL 25 MG TABLET PO SCH (09:30)
[2024-07-29] MEDS: LOSARTAN POTASSIUM 50 MG TABLET PO SCH (09:30)
[2024-07-29 09:35] VITALS: BP 167/90
== END 2024-07-29 10:59 | disposition home health service (06) | DRG 552 ==
LOC: ER 20:56 → ERHOLD 07-27 02:37 → 4TH 07-27 03:23 → OBSVTOIN 07-29 07:59
PROVIDERS: ADMIT Hospitalist; ATTEND Hospitalist
DX: M54.50 Low back pain, unspecified (principal); Z68.41 Body mass index [BMI] 40.0-44.9, adult; E66.01 Morbid (severe) obesity due to excess calories; I10 Essential (primary) hypertension; E78.2 Mixed hyperlipidemia; Z79.84 Long term (current) use of oral hypoglycemic drugs; Z90.49 Acquired absence of other specified parts of digestive tract; Z79.899 Other long term (current) drug therapy; W18.30XA Fall on same level, unspecified, initial encounter; Y93.9 Activity, unspecified; Y92.019 Unspecified place in single-family (private) house as the place of occurrence of the external cause; Y99.9 Unspecified external cause status
CPT/HCPCS: 36415; 72131; 72148; 72192; 80053; 81001; 82550; 83880; 84484; 85025; 96374; 96375; 97110; 97116; 97161; 99284; G0378; J0360; J1100; J1650; J2003; J2405; J7030; Q0169

== ENCOUNTER 2024-09-07 19:11 | Emergency (ER) | payer OTHER ==
[2024-09-07 22:24] LABS: Specific Gravity 1.023 (1.005-1.030); Sqamous Epithelial <5 /HPF (None Seen); Urine Bacteria <20 /HPF (<20); Urine Bilirubin NEGATIVE (Negative); Urine Blood Negative (Negative); Urine Clarity Turbid (Clear); Urine Color Light-Yellow (Yellow); Urine Crystals Unidentified Few /HPF (None Seen); Urine Culture Reflex Order NOT NEEDED; Urine Glucose 1+ (Negative); Urine Ketones NEGATIVE (Negative); Urine Micro Reflex YN NO BILL MICROSCOPIC; Urine Mucus 1+ /HPF (None Seen); Urine Nitrite NEGATIVE (Negative); Urine Protein 1+ (Negative); Urine RBC <5 /HPF (None Seen); Urine Urobilinogen Normal (Normal); Urine WBC Clump Rare /HPF (None Seen); Urine Yeast (Budding) Trace /HPF (None Seen); Urine pH 6.5 (5.0-7.0)
--- NOTE | 2024-09-07 22:54 | ER ---
Nurse's Notes [facility] Name: Winston Garcia Age: 69 yrs Sex: Male : 1955 Arrival Date: 09/07/2024 Time: 19:11 Bed 10 Private MD: Diagnosis: Urinary retention Presentation: 09/07 19:45 Chief complaint: Patient states: urinary frequency onset 1 week ago and now "very cm10 little is coming out.". Coronavirus screen: Client denies travel out of the [place] in the last 14 days. Ebola Screen: Patient denies travel to an Ebola-affected area in the 21 days before illness onset. Initial Sepsis Screen: Does the patient meet any 2 criteria? No. Patient's initial sepsis screen is negative. Does the patient have a suspected source of infection? No. Patient's initial sepsis screen is negative. Risk Assessment: Do you want to hurt yourself or someone else? Patient reports no desire to harm self or others. Onset of symptoms was September 07, 2024. 19:45 Method Of Arrival: Ambulatory cm10 19:45 Acuity: LOBITO 3 cm10 Triage Assessment: 19:49 General: Appears in no apparent distress. uncomfortable, Behavior is calm, cooperative. cm10 Neuro: No deficits noted. Level of Consciousness is awake, alert, obeys commands, Oriented to person, place, time, situation, Appropriate for age. Respiratory: Airway is patent Respiratory effort is even, unlabored, Respiratory pattern is regular, symmetrical. : Reports urinary frequency. Historical: - Allergies: 19:48 No Known Allergies; cm10 - Home Meds: 19:48 tamsulosin 0.4 mg oral capsule [Active]; metoprolol tartrate 50 mg Oral tablet cm10 [Active]; pantoprazole 40 mg oral tablet, delayed release (enteric coated) [Active]; gabapentin 400 mg oral tablet [Active]; Baclofen Oral [Active]; 19:50 losartan 100 mg oral tablet [Active]; cm10 - PMHx: 19:48 brain aneurysm; Hyperlipidemia; Hypertension; cm10 - PSHx: 19:48 Appendectomy; cm10 - Immunization history:: Adult Immunizations up to date. - Infectious Disease History:: Denies. - Social history:: Smoking status: Patient denies any tobacco usage or history of. - Family history:: not pertinent. Screenin:00 [facility] ED Fall Risk Assessment (Adult) History of falling in the last 3 months, vc1 including since admission No falls in past 3 months (0 pts) Confusion or Disorientation No (0 pts) Intoxicated or Sedated No (0 pts) Impaired Gait Yes (1 pt) Mobility Assist Device Used Yes (1 pt) Altered Elimination Yes (1 pt) Score/Fall Risk Level 3 or more points = High Risk Oriented to surroundings, Maintained a safe environment, Educated pt \\T\\ family on fall prevention, incl call for assistance when getting out of bed, Assessed \\T\\ reinforced patient's understanding of fall precautions, Provided non-skid footwear, Hourly rounding (assess needs \\T\\ fall precautionary measures) done. Abuse screen: Denies threats or abuse. Nutritional screening: No deficits noted. Tuberculosis screening: No symptoms or risk factors identified. Assessment: 23:11 General: Appears in no apparent distress. uncomfortable, obese, well developed, vc1 Behavior is calm, cooperative, appropriate for age. Pain: Complains of pain in suprapubic area Pain currently is 10 out of 10 on a pain scale. Quality of pain is described as pressure, Pain began suddenly. Neuro: Level of Consciousness is awake, alert, obeys commands, Oriented to person, place, time, situation, Appropriate for age. Cardiovascular: Heart tones S1 S2 present Capillary refill < 3 seconds Patient's skin is warm and dry. Respiratory: Airway is patent Respiratory effort is even, unlabored, Respiratory pattern is regular, symmetrical, Breath sounds are clear bilaterally. GI: No deficits noted. No signs and/or symptoms were reported involving the gastrointestinal system. : Urine is cloudy, Bladder is distended Reports inability to void, pain in suprapubic area. EENT: No deficits noted. No signs and/or symptoms were reported regarding the EENT system. Derm: Skin is intact, is healthy with good turgor, Skin is dry, Skin is normal, Skin temperature is warm. Musculoskeletal: No deficits noted. No signs and/or symptoms reported regarding the musculoskeletal system. Vital Signs: 19:45 BP 162 / 99; Pulse 76; Resp 15; Temp 98.7; Pulse Ox 93% on R/A; Weight 147.42 kg; cm10 Height 6 ft. 3 in. ; Pain 8/10; 19:45 Body Mass Index 40.62 (147.42 kg, 190.5 cm) cm10 19:45 Pain Scale: Adult cm10 ED Course: 19:13 Patient arrived in ED. im 19:48 Triage completed. cm10 19:49 Arm band placed on right wrist. Patient placed in waiting room. cm10 19:59 Vargas Carlos MD is Attending Physician. rt 22:00 Unger cath inserted, using sterile technique, 16 Fr., by or, balloon inflated, to vc1 gravity drainage, urine specimen collected. other 450cc drained. 22:12 [facility] Sent. vk 22:53 Brandon Ann MD is Referral Physician. rt 23:09 No provider procedures requiring assistance completed. Patient did not have IV access vc1 during this emergency room visit. 23:10 Patient has correct armband on for positive identification. Provided Education on: f/u vc1 with urologist. Administered Medications: No medications were administered Medication: 23:11 VIS not applicable for this client. vc1 Outcome: 22:53 Discharge ordered by . rt 23:10 Discharged to home via wheelchair, with significant other, vc1 23:10 Condition: stable 23:10 Discharge instructions given to patient, Instructed on discharge instructions, follow up and referral plans. medication usage, Demonstrated understanding of instructions, follow-up care, medications, Prescriptions given X 1, 23:13 Patient left the ED. vc1 Signatures: Sima Faria RN RN vc1 Vargas Carlos MD MD rt Joy Rendon Clarissa, RN RN cm10 Flor Charles
--- NOTE | 2024-09-07 22:54 | EDPHYS ---
Physician Documentation [facility] Name: Winston Garcia Age: 69 yrs Sex: Male : 1955 Arrival Date: 09/07/2024 Time: 19:11 Bed 10 Private MD: ED Physician Vargas Carlos HPI: 09/07 23:36 This 69 yrs old Male presents to ER via Ambulatory with complaints of Urinary Problem. rt 23:36 Patient presents to the ED with 10 days of urinary symptoms, states that he has been rt having a little amounts with urinary frequency, states is very difficult for him to urinate starting today. He reportedly has had surgery to the penis about 2 years ago with skin grafting. Denies other acute complaints at this time, symptoms are moderate in severity, no other aggravating or alleviating factors.. Historical: - Allergies: 19:48 No Known Allergies; cm10 - Home Meds: 19:48 tamsulosin 0.4 mg oral capsule [Active]; metoprolol tartrate 50 mg Oral tablet cm10 [Active]; pantoprazole 40 mg oral tablet, delayed release (enteric coated) [Active]; gabapentin 400 mg oral tablet [Active]; Baclofen Oral [Active]; 19:50 losartan 100 mg oral tablet [Active]; cm10 - PMHx: 19:48 brain aneurysm; Hyperlipidemia; Hypertension; cm10 - PSHx: 19:48 Appendectomy; cm10 - Immunization history:: Adult Immunizations up to date. - Infectious Disease History:: Denies. - Social history:: Smoking status: Patient denies any tobacco usage or history of. - Family history:: not pertinent. ROS: 23:36 Constitutional: Negative for fever, chills, and weight loss, Cardiovascular: Negative rt for chest pain, palpitations, and edema, Respiratory: Negative for shortness of breath, cough, wheezing, and pleuritic chest pain, Abdomen/GI: Negative for abdominal pain, nausea, vomiting, diarrhea, and constipation, Skin: Negative for injury, rash, and discoloration, Neuro: Negative for headache, weakness, numbness, tingling, and seizure, 23:36 : Positive for urinary frequency, small amounts, Exam: 23:36 Constitutional: This is a well developed, well nourished patient who is awake, alert, rt and in no acute distress. Head/Face: Normocephalic, atraumatic. 23:36 Abdomen/GI: Tenderness, fullness to the suprapubic region, 23:36 : Scarring noted to the inferior region of the penis, Vital Signs: 19:45 BP 162 / 99; Pulse 76; Resp 15; Temp 98.7; Pulse Ox 93% on R/A; Weight 147.42 kg; cm10 Height 6 ft. 3 in. ; Pain 8/10; 19:45 Body Mass Index 40.62 (147.42 kg, 190.5 cm) cm10 19:45 Pain Scale: Adult cm10 Procedures: 23:36 Ultrasound: Type: Bladder ultrasound, performed by the emergency department physician, rt Bladder appears to be full of fluid on images. MDM: 21:36 Medical Screening Exam initiated rt 23:36 Differential Diagnosis Urinary retention, BPH. Data reviewed: vital signs, nurses rt notes, lab test result(s). Care significantly affected by the following chronic conditions: Hypertension. Counseling: I had a detailed discussion with the patient and/or guardian regarding the historical points, exam findings, and any diagnostic results supporting the discharge/admit diagnosis, lab results, the need for outpatient follow up. Response to treatment: the patient's symptoms have markedly improved after treatment. 09/07 21:29 Order name: UAM; Complete Time: 22:41 rt 09/07 21:37 Order name: [place]; Complete Time: 22:10 rt 09/07 21:37 Order name: Misc. Order: measure uop from [place]; Complete Time: 22:10 rt Administered Medications: No medications were administered Disposition Summary: 09/07/24 22:53 Discharge Ordered Notes: Location: Home rt Problem: new rt Symptoms: have improved rt Condition: Stable rt Diagnosis - Urinary retention rt Followup: rt - With: Brandon Ann MD - When: 7 - 10 days - Reason: Discharge Instructions: - Discharge Summary Sheet rt - Acute Urinary Retention, Male rt - Indwelling Urinary Catheter Insertion rt Forms: - Medication Reconciliation Form rt - Antibiotic Education rt - Prescription Opioid Use rt - Patient Portal Instructions rt - Leadership Thank You Letter rt Prescriptions: - Flomax 0.4 mg Oral capsule - take 1 capsule ORAL route every 24 hours; 30 capsule; Refills: 0, Product rt Selection Permitted Signatures: Dispatcher [employer] EDVargas Khan MD MD rt Dorothy Yang, RN RN cm10
[2024-09-07 23:19] VITALS: BP 162/99; TEMP 98.7; O2SAT 93
== END 2024-09-07 23:13 | disposition home or self-care (01) ==
LOC: ER 19:11
DX: R33.9 Retention of urine, unspecified (principal)
CPT/HCPCS: 51702; 81001; 99284

== ENCOUNTER 2024-10-03 20:03 | Inpatient (IN) | payer OTHER ==
--- NOTE | 2024-10-03 21:28 | RAD REPORT ---
EXAMINATION: ONE VIEW CHEST XR CLINICAL INDICATION: DYSPNEA TECHNIQUE: Frontal chest projection is submitted. Examination is limited by patient positioning and t echnique. COMPARISON: 06/21/2023 FINDINGS: Moderate bilateral pulmonary opacities are present likely representing pneumonia or pulmonary edema. The heart is mildly to moderately enlarged. No displaced fractures identified.
[2024-10-03 22:09] LABS: Absolute Basophils 0.2 K/uL (0-0.5); Absolute Eosinophils 0.8 K/uL (0-0.5); Absolute Lymphocytes (CBC) 2.4 K/uL (0.7-4.9); Absolute Monocytes 0.8 K/uL (0.1-1.3); Absolute Neutrophil 5.1 K/uL (1.8-8.0); Basophils % 1.8 % (0-1.3); Eosinophils % 8.5 % (0-4.4); Hematocrit 41.4 % (39.6-49.0); Hemoglobin 14.1 g/dL (13.6-17.9); Lymphocytes % 25.9 % (15.3-44.8); MCH 32.3 pg (27.0-35.0); MCHC 34.2 g/dL (32.0-36.0); MCV 94.4 fL (80-100); MPV 8.1 fL (7.6-11.3); Monocytes % 8.6 % (3.3-12.3); Neutrophils % 55.2 % (41.7-73.7); Nucleated Red Blood Cells % 0.1 % (0-0); Platelets 276 thou/uL (152-406); RBC Red Blood Cell Count 4.38 M/uL (4.33-5.43); Red Cell Distribution Width 15.3 % (12.1-15.2)
[2024-10-03] MEDS ORDERED: FUROSEMIDE 40 MG/4 ML VIAL ONE (22:11)
[2024-10-03 22:25] LABS: Albumin 3.4 g/dL (3.4-5.0); Albumin/Globulin Ratio 0.9 (1.1-1.8); Anion Gap 9.1 mEq/L (5.0-15.0); Bilirubin Direct 0.2 mg/dL (0-0.2); Bilirubin Indirect, Calculated 0.2 mg/dL (0.2-0.8); Bilirubin Total 0.4 mg/dL (0.2-1.0); Globulin 3.9 g/dL (2.3-3.5); Magnesium 2.1 mg/dL (1.6-2.4); Potassium 4.1 mEq/L (3.5-5.1); Protein, Total 7.3 g/dL (6.4-8.2); Troponin High Sensitivity 3.3 pg/mL (<58.9)
--- NOTE | 2024-10-04 00:07 | ER ---
Nurse's Notes [facility] [place] Name: Winston Garcia Age: 69 yrs Sex: Male : 1955 Arrival Date: 10/03/2024 Time: 20:03 Bed 12 Private MD: Diagnosis: Pulmonary edema versus pneumonia;Hypoxia Presentation: 10/03 20:46 Chief complaint: Patient states: DIZZINESS, HEADACHE, SHORTNESS OF BREATH, AND ha1 GENERALIZED WEAKNESS. 20:46 Coronavirus screen: Client denies travel out of the [place] in the last 14 days. Ebola ha1 Screen: No symptoms or risks identified at this time. Initial Sepsis Screen: Does the patient meet any 2 criteria? No. Patient's initial sepsis screen is negative. Does the patient have a suspected source of infection? No. Patient's initial sepsis screen is negative. Risk Assessment: Do you want to hurt yourself or someone else? Patient reports no desire to harm self or others. Onset of symptoms was October 03, 2024. 20:46 Method Of Arrival: Wheelchair ha1 20:46 Acuity: LOBITO 2 ha1 Triage Assessment: 20:47 The onset of the patients symptoms was October 03, 2024 at 21:02. General: Appears ha1 comfortable, Behavior is calm, cooperative. Pain: Complains of pain in HEADACHE Pain does not radiate. Pain currently is 7 out of 10 on a pain scale. Quality of pain is described as pressure. Neuro: Level of Consciousness is awake, alert, obeys commands, Oriented to person, place, time, situation, Reports weakness. Cardiovascular: Capillary refill < 3 seconds Patient's skin is warm and dry. Respiratory: Airway is patent Respiratory effort is even, unlabored, Respiratory pattern is regular, symmetrical. GI: No signs and/or symptoms were reported involving the gastrointestinal system. Abdomen is round obese. Musculoskeletal: Circulation, motion, and sensation intact. Range of motion: intact in all extremities. Historical: - Allergies: 21:01 No Known Allergies; ha1 - PMHx: 21:01 brain aneurysm; Hyperlipidemia; Hypertension; ha1 - PSHx: 21:01 Appendectomy; ha1 - Immunization history:: Adult Immunizations up to date. - Infectious Disease History:: Denies. - Social history:: Smoking status: Patient denies any tobacco usage or history of. - Family history:: not pertinent. Screenin/28 00:53 [facility] ED Fall Risk Assessment (Adult) History of falling in the last 3 months, ha1 including since admission No falls in past 3 months (0 pts) Confusion or Disorientation No (0 pts) Intoxicated or Sedated No (0 pts) Impaired Gait Yes (1 pt) Mobility Assist Device Used Yes (1 pt) Altered Elimination No (0 pt) Score/Fall Risk Level 0 - 2 = Low Risk Oriented to surroundings, Maintained a safe environment, Educated pt \T\ family on fall prevention, incl call for assistance when getting out of bed, Hourly rounding (assess needs \T\ fall precautionary measures) done. Abuse screen: Denies threats or abuse. Denies injuries from another. Nutritional screening: No deficits noted. Tuberculosis screening: No symptoms or risk factors identified. Assessment: 10/03 20:46 Reassessment: SEE TRIAGE ASSESSMENT. ha1 22:00 Reassessment: Patient and/or family updated on plan of care and expected duration. Pain ha1 level reassessed. Patient is alert, oriented x 3, equal unlabored respirations, skin warm/dry/pink. 23:00 Reassessment: Patient and/or family updated on plan of care and expected duration. Pain ha1 level reassessed. Patient is alert, oriented x 3, equal unlabored respirations, skin warm/dry/pink. 10/04 00:51 Reassessment: Patient and/or family updated on plan of care and expected duration. Pain ha1 level reassessed. Patient is alert, oriented x 3, equal unlabored respirations, skin warm/dry/pink. 01:30 Reassessment: Patient and/or family updated on plan of care and expected duration. Pain ha1 level reassessed. Patient is alert, oriented x 3, equal unlabored respirations, skin warm/dry/pink. Vital Signs: 10/03 20:46 BP 155 / 93; Pulse 91; Resp 19 S; Temp 98.7(O); Pulse Ox 94% on R/A; Weight 147.42 kg; ha1 Height 5 ft. 11 in. ; 22:28 BP 164 / 85; Pulse 90; Resp 20 S; Pulse Ox 97% on 2 lpm NC; ha1 10/04 00:52 BP 157 / 84; Pulse 91; Resp 20 S; Pulse Ox 97% on 2 lpm NC; ha1 01:40 BP 155 / 87; Pulse 90; Resp 20 S; Pulse Ox 98% on 2 lpm NC; ha1 10/03 20:46 Body Mass Index 45.33 (147.42 kg, 180.34 cm) [facility] ED Course: 10/03 20:05 Patient arrived in ED. [email or web address] 20:23 Vargas Carlos MD is Attending Physician. rt 20:46 Arm band placed on right wrist. ha1 20:46 Patient has correct armband on for positive identification. Bed in low position. Call ha1 light in reach. Side rails up X 1. Adult w/ patient. 21:01 Triage completed. ha1 21:02 EKG done, by ED staff, reviewed by Vargas Carlos MD. oe 21:24 XRAY Chest (1 view) In Process Unspecified. EDMS 21:47 Inserted saline lock: 20 gauge in right antecubital area, using aseptic technique. oe Blood collected. Flushed with 10 mL NS. 22:14 Rylie Kapadia RN is Primary Nurse. 1 10/04 00:06 David Venegas MD is Hospitalizing Provider. rt 02:44 No provider procedures requiring assistance completed. Patient admitted, IV remains in ha1 place. 02:48 Provided Education on: NEED FOR ADMIT . ha Administered Medications: 10/03 22:27 Drug: Furosemide IVP 40 mg IVP once; give over 2 minutes Route: IVP; Site: right 1 antecubital; 23:10 Follow up: Response: No adverse reaction 1 10/04 00:10 Drug: diphenhydrAMINE IVP 25 mg IVP once Route: IVP; Site: right antecubital; 1 00:50 Follow up: Response: No adverse reaction; Marked relief of symptoms; Pain is decreased ha1 00:12 Drug: metoCLOPramide IVP 10 mg IVP once; over 1 to 2 minutes Route: IVP; Site: right 1 antecubital; 00:50 Follow up: Response: No adverse reaction; Marked relief of symptoms; Pain is decreased ha1 00:15 Drug: LevaQUIN IVPB 750 mg IVPB once Route: IVPB; Site: right antecubital; [facility] 01:30 Follow up: Response: No adverse reaction; IV Status: Completed infusion ha1 Medication: 02:48 VIS not applicable for this client. ha1 Outcome: 00:06 Decision to Hospitalize by Provider. rt 02:44 Admitted to Tele accompanied by tech, via wheelchair, room 431, with chart, ha1 02:44 Condition: stable 02:44 Instructed on the need for admit, Demonstrated understanding of instructions, 02:49 Patient left the ED. ha1 Signatures: Dispatcher [employer] EDMS Francisco Javier Yuen Jennifer [email or web address] Rylie Kapadia, ROSIE RN ha1 Vargas Carlos MD MD rt
--- NOTE | 2024-10-04 00:07 | EDPHYS ---
Physician Documentation [facility] Name: Winston Garcia Age: 69 yrs Sex: Male : 1955 Arrival Date: 10/03/2024 Time: 20:03 Bed 12 Private MD: ED Physician Vargas Carlos HPI: 10/03 21:47 This 69 yrs old Male presents to ER via Wheelchair with complaints of Weakness, rt Dizziness, Shortness Of Breath. 21:47 Patient presents to the ED with dizziness, weakness, shortness of breath starting over rt the past few days, worsening. It is worse with exertion, denies orthopnea. States that he has developed swelling of his bilateral legs, scrotum, lower abdomen. Denies other acute complaints at this time, symptoms are moderate in severity, no other aggravating or alleviating factors.. Historical: - Allergies: 21:01 No Known Allergies; ha1 - PMHx: 21:01 brain aneurysm; Hyperlipidemia; Hypertension; ha1 - PSHx: 21:01 Appendectomy; ha1 - Immunization history:: Adult Immunizations up to date. - Infectious Disease History:: Denies. - Social history:: Smoking status: Patient denies any tobacco usage or history of. - Family history:: not pertinent. ROS: 21:47 Constitutional: Negative for fever, chills, and weight loss, Abdomen/GI: Negative for rt abdominal pain, nausea, vomiting, diarrhea, and constipation, MS/Extremity: Negative for injury and deformity, Skin: Negative for injury, rash, and discoloration, 21:47 Cardiovascular: Positive for chest pain, edema, 21:47 Respiratory: Positive for shortness of breath, Negative for orthopnea, Exam: 21:47 Constitutional: This is a well developed, well nourished patient who is awake, alert, rt and in no acute distress. Head/Face: Normocephalic, atraumatic. Chest/axilla: Normal chest wall appearance and motion. Nontender with no deformity. No lesions are appreciated. Cardiovascular: Regular rate and rhythm with a normal S1 and S2. No gallops, murmurs, or rubs. Normal PMI, no JVD. No pulse deficits. Respiratory: Lungs have equal breath sounds bilaterally, clear to auscultation and percussion. No rales, rhonchi or wheezes noted. No increased work of breathing, no retractions or nasal flaring. Skin: Warm, dry with normal turgor. Normal color with no rashes, no lesions, and no evidence of cellulitis. MS/ Extremity: Pulses equal, no cyanosis. Neurovascular intact. Full, normal range of motion. Neuro: Awake and alert, GCS 15, oriented to person, place, time, and situation. Cranial nerves II-XII grossly intact. Motor strength 5/5 in all extremities. Sensory grossly intact. Cerebellar exam normal. Normal gait. 21:47 ECG was reviewed by the Attending Physician. 21:47 Respiratory: Faint bibasilar crackles, no respiratory distress, 21:47 Musculoskeletal/extremity: 3+ lower extremity edema, no skin changes. Vital Signs: 20:46 BP 155 / 93; Pulse 91; Resp 19 S; Temp 98.7(O); Pulse Ox 94% on R/A; Weight 147.42 kg; ha1 Height 5 ft. 11 in. ; 22:28 BP 164 / 85; Pulse 90; Resp 20 S; Pulse Ox 97% on 2 lpm NC; ha1 10/04 00:52 BP 157 / 84; Pulse 91; Resp 20 S; Pulse Ox 97% on 2 lpm NC; ha1 01:40 BP 155 / 87; Pulse 90; Resp 20 S; Pulse Ox 98% on 2 lpm NC; 1 10/03 20:46 Body Mass Index 45.33 (147.42 kg, 180.34 cm) [facility] MDM: 10/03 20:46 Medical Screening Exam initiated rt 10/04 00:47 Data reviewed: vital signs, nurses notes. Consideration of Admission/Observation rt Patient was admitted/placed on observation. I considered the following discharge prescriptions or medication management in the emergency department Medications were administered in the Emergency Department. See MAR. Independent interpretation of the following test(s) in the Emergency Department X-Ray: My interpretation is Bilateral infiltrate seen on interpretation of x-ray images. Test considered but Not performed: CT: Low suspicion for pulmonary embolus, CT angiogram not indicated. Care significantly affected by the following chronic conditions: Hypertension. Counseling: I had a detailed discussion with the patient and/or guardian regarding the historical points, exam findings, and any diagnostic results supporting the discharge/admit diagnosis, lab results, radiology results. Response to treatment: the patient's symptoms have markedly improved after treatment. 10/03 20:52 Order name: Basic Metabolic Panel; Complete Time: 22:25 rt 10/03 20:52 Order name: CBC with Diff; Complete Time: 22:25 rt 10/03 20:52 Order name: LFT's; Complete Time: 22:25 rt 10/03 20:52 Order name: Magnesium; Complete Time: 22:25 rt 10/03 20:52 Order name: NT PRO-BNP; Complete Time: 22:25 rt 10/03 20:52 Order name: Troponin HS; Complete Time: 22:25 rt 10/04 01:38 Order name: ABG Arterial Blood Gas EDMS 10/04 01:38 Order name: ABG Arterial Blood Gas EDUT 10/04 01:40 Order name: CBC with Automated Diff EDMS 10/04 01:40 Order name: Comprehensive Metabolic Panel EDUT 10/04 01:40 Order name: D-Dimer EDUT 10/04 01:40 Order name: Lactate w/ 2H reflex if indic. EDUT 10/04 01:40 Order name: Magnesium EDUT 10/04 01:40 Order name: NT PRO-BNP EDMS 10/04 01:40 Order name: Procalcitonin EDUT 10/04 01:40 Order name: Protime (+INR) EDMS 10/04 01:40 Order name: T4 Free EDUT 10/04 01:40 Order name: Thyroid Stimulating Hormone EDUT 10/04 01:40 Order name: Troponin High Sensitivity EDUT 10/04 01:40 Order name: Lipid Profile EDUT 10/03 20:52 Order name: XRAY Chest (1 view); Complete Time: 21:30 rt 10/04 01:38 Order name: Echo with Doppler EDUT 10/03 20:52 Order name: EKG; Complete Time: 20:52 rt 10/04 01:38 Order name: CONS Physician Consult EDUT 10/03 20:52 Order name: Cardiac monitoring; Complete Time: 22:16 rt 10/03 20:52 Order name: EKG - Nurse/Tech; Complete Time: 22:16 rt 10/03 20:52 Order name: IV Saline Lock; Complete Time: 22:16 rt 10/03 20:52 Order name: Labs collected and sent; Complete Time: 22:16 rt 10/03 20:52 Order name: O2 Per Protocol; Complete Time: 22:16 rt 10/03 20:52 Order name: O2 Sat Monitoring; Complete Time: 22:16 rt EC/27 21:47 Rate is 93 beats/min. Rhythm is regular, Normal Sinus Rhythm with No ectopy. QRS Elizabeth rt is Normal. NC interval is normal. QRS interval is normal. QT interval is normal. No Q waves. No ST changes noted. Interpreted by me. Administered Medications: :27 Drug: Furosemide IVP 40 mg IVP once; give over 2 minutes Route: IVP; Site: right ha1 antecubital; 23:10 Follow up: Response: No adverse reaction ha1 10/04 00:10 Drug: diphenhydrAMINE IVP 25 mg IVP once Route: IVP; Site: right antecubital; ha1 00:50 Follow up: Response: No adverse reaction; Marked relief of symptoms; Pain is decreased ha1 00:12 Drug: metoCLOPramide IVP 10 mg IVP once; over 1 to 2 minutes Route: IVP; Site: right ha1 antecubital; 00:50 Follow up: Response: No adverse reaction; Marked relief of symptoms; Pain is decreased ha1 00:15 Drug: LevaQUIN IVPB 750 mg IVPB once Route: IVPB; Site: right antecubital; ha1 01:30 Follow up: Response: No adverse reaction; IV Status: Completed infusion ha1 Disposition Summary: 10/04/24 00:06 Hospitalization Ordered Notes: Hospitalization Status: Observation rt Provider: David Venegas [facility] Condition: Stable rt Problem: new rt Symptoms: have improved rt Bed/Room Type: Standard rt Room Assignment: 431(10/04/24 01:03) cg Diagnosis - Pulmonary edema versus pneumonia rt - Hypoxia rt Forms: - Medication Reconciliation Form rt - SBAR form rt - Leadership Thank You Letter rt Critical care time excluding procedures: 00:47 Critical care time: Bedside Care: 30 minutes, Consultation: 5 minutes. Total time: 35 rt minutes Signatures: Dispatcher [employer] Tashia Clark RN RN Rylie Kapadia RN RN [facility] Vargas Carlos MD MD rt Corrections: (The following items were deleted from the chart) 01:03 00:06 rt cg 01:39 01:38 Lipid Profile ordered. EDMS EDMS 01:39 01:38 Lipid Profile ordered. EDMS EDMS
[2024-10-04] MEDS ORDERED: Levofloxacin 750mg IV 750 MG/150 ML BAG IV ONE (00:13)
[2024-10-04] MEDS ORDERED: DIPHENHYDRAMINE 50 MG/ML VIAL ONE (00:13)
[2024-10-04] MEDS ORDERED: METOCLOPRAMIDE 10 MG/2mL INJ ONE (00:13)
--- NOTE | 2024-10-04 01:31 | P.HP ---
Certification for Inpatient Patient admitted to: Inpatient With expected LOS: >2 Midnights Patient will require the following post-hospital care: None Practitioner: I am a practitioner with admitting privileges, knowledge of patient current condition, hospital course, and medical plan of care. Services: Services provided to patient in accordance with Admission requirements found in Title 42 Section 412.3 of the Code of Federal Regulations Patient History Date of Service: 10/04/24 Reason for admission: Bibasilar opacities and hypoxemia History of Present Illness: Patient is a 69-year-old gentleman who came to the hospital with shortness of breath. Patient states he had been working with physical therapy since he left the hospital with upper back injury and since then he has been doing well up until the last couple of days when he noticed he was getting more short of breath. He is also appreciated minimal lower extremity edema but his biggest concern was he was more short of breath. He came to the ER and his chest x-ray revealed bibasilar opacities. Patient also had a small pleural effusion bilaterally. Patient also had lab workup done in the emergency room which revealed a normal BNP and white blood cell count. However, patient's oxygenation was in the 80 percentile on room air. Patient does not remember having a diagnosis of sleep apnea; however, on further questioning his remembers he used to wear a mask at night to sleep. He apparently has not been wearing the CPAP machine for a while. According to his he does snore heavily. Will get an echocardiogram in the morning and will continue with IV antibiotics. Will do a procalcitonin level in the morning and further testing with chest x-ray may be needed if his x-ray is not improved on diuretics. Concern at this time would be heart failure with preserved ejection fraction as his BNP is normal. He may have developed some right-sided heart failure as well if his sleep apnea has not been treated appropriately. At this time patient will be admitted for inpatient hospitalization. Allergies No Known Drug Allergies Allergy (Verified 08/03/21 21:57) Unknown Home Medications: Baclofen [Lioresal*] 10 mg PO BID 06/22/23 Fluticasone Propionate [Flovent Diskus] 1 spray IH DAILY 06/22/23 Gabapentin [Neurontin*] 400 mg PO BID 06/22/23 Loratadine [Claritin*] 10 mg PO DAILY 06/22/23 Metformin ER [Glucophage ER*] 500 mg PO BID 06/22/23 Montelukast [Singulair*] 10 mg PO BEDTIME 06/22/23 Tamsulosin [Flomax*] 1 cap PO DAILY 06/22/23 Diclofenac Sodium [Voltaren] 75 mg PO BIDP PRN 07/27/24 Omeprazole [Prilosec] 40 mg PO DAILY 07/27/24 Venlafaxine HCl [Effexor Xr] 37.5 mg PO DAILY 07/27/24 Hydralazine [Apresoline*] 25 mg PO TID #90 tab 07/29/24 Lidocaine 4% Patch [Lidoderm 5% Patch*] 1 patch TD DAILY #30 patch 07/29/24 Lidocaine 4% Patch [Lidoderm 5% Patch*] 1 patch TOP DAILY #30 pat 07/29/24 Losartan Potassium [Cozaar*] 50 mg PO DAILY #30 tab 07/29/24 Metoprolol Tartrate [Lopressor*] 25 mg PO BID #60 tab 07/29/24 Tramadol HCl/Acetaminophen [Tramadol-Acetaminophn 37.5-325] 1 each PO Q6HP PRN #30 tab 07/29/24 Tramadol HCl/Acetaminophen [Tramadol-Acetaminophn 37.5-325] 1 each PO Q6HP PRN #30 tab 07/29/24 dexAMETHasone [Dexamethasone] 2 mg PO Q8H #30 tab 07/29/24 methocarbamoL [Robaxin] 500 mg PO TID PRN #30 tab 07/29/24 - Past Medical/Surgical History Diabetic: Yes -: Hypertension -: BRAIN ANUERYSM -: Borderline diabetes -: Hyperlipidemia -: Back surgery -: BRAIN SURGERY FOR ANEURYSMS -: Back surgery Psychosocial/ Personal History: Patient is retired, lives with his - Family History Mother Medical History: Cancer Notes: BREAST CANCER - Social History Smoking Status: Never smoker Alcohol use: No CD- Drugs: No Caffeine use: No Review of Systems 10-point ROS is otherwise unremarkable Physical Examination - Physical Exam General: Alert, In no apparent distress, Oriented x3, Obese HEENT: Atraumatic, PERRLA, Mucous membr. moist/pink, EOMI, Sclerae nonicteric Neck: Supple, 2+ carotid pulse no bruit, No LAD, Other (Thick neck), Without JVD or thyroid abnormality Respiratory: Crackles/rales Cardiovascular: Regular rate/rhythm, Normal S1 S2 Gastrointestinal: Normal bowel sounds, Soft and benign, No tenderness, Distended Musculoskeletal: No clubbing, No swelling, No tenderness Integumentary: No rashes Neurological: Normal gait, Normal speech, Normal strength at 5/5 x4 extr, Normal tone, Sensation intact, Cranial nerves 3-12 intact, Normal affect Lymphatics: No axilla or inguinal lymphadenopathy - Studies Laboratory Data (last 24 hrs) 10/03/24 10/03/24 21:46 21:46 WBC 9.30 Hgb 14.1 Hct 41.4 Plt Count 276 Sodium 139 Potassium 4.1 BUN 16 Creatinine 1.25 Glucose 157 H Magnesium 2.1 Total Bilirubin 0.4 AST 18 ALT 41 Alkaline Phosphatase 95 Assessment & Plan - Problems (Diagnosis) (1) Acute hypoxic respiratory failure Current Visit: Yes Status: Acute (2) Brain aneurysm Current Visit: No Status: Chronic (3) HLD (hyperlipidemia) Current Visit: No Status: Chronic Qualifiers: (4) HTN (hypertension) Current Visit: No Status: Chronic Qualifiers: (5) Morbid (severe) obesity due to excess calories Current Visit: No Status: Chronic - Plan Plan: 1. Patient with acute hypoxic respiratory failure; this could be multifactorial. Patient has bibasilar opacities which could be related to a pneumonic process. This could be viral or bacterial and we will go ahead and get a procalcitonin level. Patient's white blood cell count is normal and there is no fever. Will go ahead and start him on antibiotics. Patient also could have heart failure most likely with preserved ejection fraction; will go ahead and get an echocardiogram to further evaluate patient's cardiac status. Patient's blood pressure has been running high in the emergency room. Will get strict blood pressure control and continue with diuresing patient. There is also concern for pulmonary hypertension as patient with a history of obstructive sleep apnea not being treated with a CPAP. Patient apparently snores heavily at night with the for the patient is unsure if he stops breathing. Will continue with monitoring his oxygen level and we may get a ABG to further assess his degree of hypercapnia and hypoxemia. At this time patient will require inpatient hospitalization. Will check room air O2 sats in a.m. and see if he qualifies for home oxygen and get this arranged. 2. Metabolic syndrome with morbid obesity; continue with strict blood pressure and blood sugar control and outpatient follow-up with PCP to discuss possibility of starting a GLP-1 agonist. Patient would benefit from weight loss and it would improve his degree of morbidity and mortality going forward. Check his thyroid levels and outpatient follow-up with PCP. 3. History of low back injury; patient has a history of lumbar fusion. Will continue with working with physical therapy while in the hospital. 4. History of brain aneurysm; patient's had a coiling procedure and will continue monitoring neurostatus and these been fairly stable from the standpoint. Continue with supportive care 5. GI DVT prophylaxis Discharge Plan: Home Plan to discharge in: Greater than 2 days - Advance Directives Does patient have a Living Will: No Does patient have a Durable POA for Healthcare: No - Code Status/Comfort Care Code Status Assessed: Yes Code Status: Full Code Critical Care: No Time Spent Managing PTS Care (In Minutes): 45
[2024-10-04] MEDS ORDERED: ONDANSETRON 4 MG/2 ML VIAL IV PRN (01:33)
[2024-10-04 05:14] VITALS: BMI 40.6
[2024-10-04] MEDS: METHYLPREDNISOLONE 40 MG INJ IV SCH (06:44)
[2024-10-04] MEDS: METOPROLOL TAR 25 MG TAB PO SCH (06:44)
[2024-10-04 07:27] LABS: Absolute Basophils 0.1 K/uL (0-0.5); Absolute Eosinophils 0.7 K/uL (0-0.5); Absolute Lymphocytes (CBC) 2.2 K/uL (0.7-4.9); Absolute Neutrophil 5.8 K/uL (1.8-8.0); Basophils % 1.3 % (0-1.3); Eosinophils % 7.3 % (0-4.4); Hematocrit 40.1 % (39.6-49.0); Hemoglobin 14.2 g/dL (13.6-17.9); MCH 33.4 pg (27.0-35.0); MCHC 35.6 g/dL (32.0-36.0); MCV 93.9 fL (80-100); MPV 7.7 fL (7.6-11.3); Monocytes % 10.1 % (3.3-12.3); Neutrophils % 59.3 % (41.7-73.7); Platelets 239 thou/uL (152-406); RBC Red Blood Cell Count 4.27 M/uL (4.33-5.43)
[2024-10-04 07:39] LABS: D-Dimer 0.317 FEUug/mL (0-0.500); PT Prothrombin Time 13.8 SECONDS (10-13.0); Protime INR 1.22
[2024-10-04 07:52] LABS: Albumin 3.3 g/dL (3.4-5.0); Albumin/Globulin Ratio 0.8 (1.1-1.8); Anion Gap 9.9 mEq/L (5.0-15.0); Bilirubin Total 0.6 mg/dL (0.2-1.0); Globulin 4.1 g/dL (2.3-3.5); Magnesium 2.1 mg/dL (1.6-2.4); Potassium 3.9 mEq/L (3.5-5.1); Protein, Total 7.4 g/dL (6.4-8.2); Thyroid Stimulating Hormone 2.33 uIU/mL (0.358-3.740); Troponin High Sensitivity 4.4 pg/mL (<58.9)
[2024-10-04] MEDS: ENOXAPARIN 40 MG/0.4 ML SQ SCH (10:08)
[2024-10-04] MEDS: LOSARTAN POTASSIUM 50 MG TABLET PO SCH (10:08)
[2024-10-04] MEDS: FUROSEMIDE 20 MG/ 2ML VIAL IV SCH (10:08)
[2024-10-04] MEDS: CEFTRIAXONE 1,000 MG in NA CHLORIDE 0.9% 50 ML IVPB SCH (10:09)
[2024-10-04] MEDS: AZITHROMYCIN IV 500 MG in NA CHLORIDE 0.9% 250 ML IVPB SCH (10:09)
[2024-10-04] MEDS: AMOX/K CLAV 875 MG TAB PO ONE (11:50)
--- NOTE | 2024-10-04 11:52 | P.CNS ---
Date of Consult: 10/04/24 Reason for Consult: Possible pneumonia Chief Complaint: Bibasilar opacities and hypoxemia History of Present Illness: Patient is 69 years of age admitted to the hospital complaining of dizziness and falling also have some sharp chest pains been short of breath for a couple of months history of hypertension former smoker denies any history of stroke Denies any fever or chills had recently had a cardiac cath 5 months ago no significant coronary artery disease as per patient history of hypertension Allergies No Known Drug Allergies Allergy (Verified 10/04/24 05:20) Unknown Home Medications: Baclofen [Lioresal*] 10 mg PO BID 06/22/23 Fluticasone Propionate [Flovent Diskus] 50 spray IH DAILY 06/22/23 Gabapentin [Neurontin*] 400 mg PO BID 06/22/23 Loratadine [Claritin*] 10 mg PO DAILY 06/22/23 Metformin ER [Glucophage ER*] 500 mg PO BID 06/22/23 Montelukast [Singulair*] 10 mg PO BEDTIME 06/22/23 Venlafaxine HCl [Effexor Xr] 37.5 mg PO DAILY 07/27/24 Losartan Potassium [Cozaar*] 50 mg PO DAILY #30 tab 07/29/24 Metoprolol Tartrate [Lopressor*] 25 mg PO BID #60 tab 07/29/24 methocarbamoL [Robaxin] 500 mg PO TID PRN #30 tab 07/29/24 - Past Medical/Surgical History Diabetic: Yes -: Hypertension -: BRAIN ANUERYSM -: Borderline diabetes -: Hyperlipidemia -: Back surgery -: BRAIN SURGERY FOR ANEURYSMS -: Back surgery Psychosocial/ Personal History: Patient is retired, lives with his - Family History Mother Medical History: Cancer Notes: BREAST CANCER - Social History Smoking Status: Former smoker Alcohol use: No CD- Drugs: No Caffeine use: Yes Place of Residence: Home Review of Systems General: Weakness Respiratory: Shortness of Breath Neurological: As per HPI Physical Examination Temp Pulse Resp BP Pulse Ox 97.6 F 80 15 135/80 97 10/04/24 08:00 10/04/24 10:08 10/04/24 08:00 10/04/24 10:08 10/04/24 08:00 General: Alert, In no apparent distress, Oriented x3 Neck: Supple Respiratory: Clear to auscultation bilaterally, Diminished Cardiovascular: No edema, Regular rate/rhythm, Normal S1 S2 Gastrointestinal: Normal bowel sounds, Soft and benign, Non-distended Laboratory Data (last 24 hrs) 10/03/24 10/03/24 21:46 21:46 WBC 9.30 Hgb 14.1 Hct 41.4 Plt Count 276 Sodium 139 Potassium 4.1 BUN 16 Creatinine 1.25 Glucose 157 H Magnesium 2.1 Total Bilirubin 0.4 AST 18 ALT 41 Alkaline Phosphatase 95 - Problems (1) Dizziness Current Visit: Yes Status: Acute Plan: Patient is 69 years of age admitted with dizziness recurrent falls dyspnea on exertion former smoker quit a long time ago labs chemistries all reviewed unremarkable chest x-ray shows bilateral interstitial changes possibly right lower lobe pneumonia although there is no evidence of infection last echocardiogram shows grade 1 diastolic dysfunction PA and lateral chest x-ray changed to p.o. Augmentin physical therapy echocardiogram has been ordered
--- NOTE | 2024-10-04 12:08 | EKG ---
Test Date: 2024-10-03 Test Time: 21:01:00 Pin Puller: SOPHIA MEASUREMENT RESULTS: Intervals: Rate: 93 WI: 156 QRSD: 82 QT: 362 QTc: 450 Drummond: P: 51 WI: 156 QRS: 18 T: 32 INTERPRETIVE STATEMENTS: Normal sinus rhythm Inferior infarct, age undetermined Abnormal ECG Compared to ECG 06/21/2023 19:22:38 Sinus tachycardia no longer present Myocardial infarct finding still present Electronically Signed On 10-04-24 12:06:28 CDT by Stephen Cota
[2024-10-04] MEDS ORDERED: HYDRALAZINE HCL 20 MG/ML VIAL IV PRN (16:18)
--- NOTE | 2024-10-04 16:20 | P.PN ---
Subjective Date of Service: 10/04/24 Chief Complaint: Bibasilar opacities and hypoxemia Subjective: No chest pain. c/o shortness of breath. No nausea or vomiting. No abdominal pain. No obvious bleeding. Looks comfortable in the bed. Objective: General appearance: Alert and comfortable CVS: Normal S1 and S2 Lungs: Clear to auscultation bilaterally Abdomen: Soft, bowel sounds present, no tenderness Extremities: No lower extremity edema Physical Examination - Vital Signs Temperature: 97.9 F Blood Pressure: 174/94 Pulse: 103 Respirations: 16 Pulse Ox (%): 93 - Studies Laboratory Data (last 24 hrs) 10/03/24 10/03/24 21:46 21:46 WBC 9.30 Hgb 14.1 Hct 41.4 Plt Count 276 Sodium 139 Potassium 4.1 BUN 16 Creatinine 1.25 Glucose 157 H Magnesium 2.1 Total Bilirubin 0.4 AST 18 ALT 41 Alkaline Phosphatase 95 Assessment And Plan - Plan 1. acute hypoxic respiratory failure; sec to pneumonia - Continue antibiotics, pulmonary is following 2. history of obstructive sleep apnea not being treated with a CPAP. 2. Morbid obesity; Patient would benefit from weight loss 4. History of low back injury; patient has a history of lumbar fusion. 5. History of brain aneurysm; patient's had a coiling procedure and will continue monitoring neurostatus and these been fairly stable from the standpoint. Continue with supportive care Plan discussed with patient and nursing staff.
[2024-10-04] MEDS: SPIRONOLACTONE 25 MG TABLET PO SCH (20:19)
--- NOTE | 2024-10-04 21:02 | RAD REPORT ---
EXAMINATION: TWO VIEW CHEST XR CLINICAL INDICATION: Male, 69 years old. [facility] CHF Vs penumonia TECHNIQUE: 2 view radiographs of the chest were performed. COMPARISON: 10/03/2024 FINDINGS: The lungs are well inflated and clear cc of focal opacities. Mild central interstitial prominence wit h near-complete improvement since prior exam. No pneumothorax or sizable effusion. The heart is normal in size. Mediastinal contours are unremarkable. IMPRESSION: Improving central interstitial prominence suggesting improving central congestion or edema.
[2024-10-04] MEDS: ACETAMINOPHEN 325 MG TABLET PO PRN (21:51)
[2024-10-05 06:28] LABS: Absolute Basophils 0.1 K/uL (0-0.5); Absolute Eosinophils 0.3 K/uL (0-0.5); Absolute Monocytes 1.6 K/uL (0.1-1.3); Absolute Neutrophil 9.1 K/uL (1.8-8.0); Basophils % 1.1 % (0-1.3); Eosinophils % 1.9 % (0-4.4); Hemoglobin 14.2 g/dL (13.6-17.9); MCHC 33.9 g/dL (32.0-36.0); MCV 94.3 fL (80-100); Monocytes % 11.6 % (3.3-12.3); Neutrophils % 64.4 % (41.7-73.7); Platelets 266 thou/uL (152-406); RBC Red Blood Cell Count 4.45 M/uL (4.33-5.43); Red Cell Distribution Width 15.4 % (12.1-15.2)
[2024-10-05 06:45] LABS: Anion Gap 6.8 mEq/L (5.0-15.0); Potassium 3.8 mEq/L (3.5-5.1)
[2024-10-05] MEDS: POTASSIUM CL SA 10 MEQ TAB PO ONE (11:29)
--- NOTE | 2024-10-05 12:36 | P.PN ---
Subjective Date of Service: 10/05/24 Chief Complaint: Bibasilar opacities and hypoxemia Subjective: Improving (Patient is improving doing well denies any cough congestion still continues to have chronic dizziness apparently this present for a number of years since his aneurysm he has had surgery before seeing a neurologist) Review of Systems 10-point ROS is otherwise unremarkable Physical Examination - Vital Signs Temperature: 97.5 F Blood Pressure: 140/82 Pulse: 82 Respirations: 16 Pulse Ox (%): 93 - Physical Exam General: Alert, Oriented x3 HEENT: Atraumatic Neck: Supple Cardiovascular: No edema, Regular rate/rhythm, Normal S1 S2 Assessment And Plan - Current Problems (Diagnosis) (1) Dizziness Current Visit: Yes Status: Acute Plan: Patient has chronic dizziness has been followed up by neurology has had aneurysm brain surgery before no acute changes able to ambulate to the bathroom with a walker denies any shortness of breath cough congestion so far oxygenation vital signs are all stable cultures are negative white count was normal on admission stable for discharge can go home some Augmentin follow-up with me in 2 to 4 weeks may have underlying obstructive sleep apnea if dyspnea persists may need a pulmonary function test
--- NOTE | 2024-10-05 15:17 | P.PN ---
Subjective Date of Service: 10/05/24 Chief Complaint: Bibasilar opacities and hypoxemia Subjective: No chest pain. shortness of breath improving. No nausea or vomiting. No abdominal pain. No obvious bleeding. Looks comfortable in the bed. Objective: General appearance: Alert and comfortable CVS: Normal S1 and S2 Lungs: Clear to auscultation bilaterally Abdomen: Soft, bowel sounds present, no tenderness Extremities: No lower extremity edema Physical Examination - Vital Signs Temperature: 97.5 F Blood Pressure: 140/82 Pulse: 82 Respirations: 16 Pulse Ox (%): 93 Assessment And Plan - Plan 1. acute hypoxic respiratory failure; sec to pneumonia - Continue antibiotics, pulmonary is following, o2 req better -echo result pending - Leukocytosis secondary to steroids. 2. history of obstructive sleep apnea not being treated with a CPAP. 2. Morbid obesity; Patient would benefit from weight loss 4. History of low back injury; patient has a history of lumbar fusion. 5. History of brain aneurysm; patient's had a coiling procedure and will continue monitoring neurostatus and these been fairly stable from the standpoint. Continue with supportive care Plan discussed with patient and nursing staff. Discussed with the case management team. Home tomorrow if continues to improve.
[2024-10-06 06:05] LABS: Absolute Basophils 0.1 K/uL (0-0.5); Absolute Eosinophils 0.5 K/uL (0-0.5); Absolute Lymphocytes (CBC) 2.7 K/uL (0.7-4.9); Absolute Monocytes 0.9 K/uL (0.1-1.3); Absolute Neutrophil 4.7 K/uL (1.8-8.0); Basophils % 1.2 % (0-1.3); Eosinophils % 5.3 % (0-4.4); Hematocrit 41.2 % (39.6-49.0); Hemoglobin 14.3 g/dL (13.6-17.9); Lymphocytes % 30.4 % (15.3-44.8); MCH 32.8 pg (27.0-35.0); MCHC 34.8 g/dL (32.0-36.0); MCV 94.4 fL (80-100); MPV 7.9 fL (7.6-11.3); Monocytes % 10.3 % (3.3-12.3); Neutrophils % 52.8 % (41.7-73.7); Nucleated Red Blood Cells % 0.1 % (0-0); Platelets 251 thou/uL (152-406); RBC Red Blood Cell Count 4.36 M/uL (4.33-5.43); Red Cell Distribution Width 15.8 % (12.1-15.2)
[2024-10-06 06:17] LABS: Anion Gap 6.2 mEq/L (5.0-15.0); Phosphorus 4.2 mg/dL (2.5-4.9); Potassium 4.2 mEq/L (3.5-5.1)
[2024-10-06 12:09] VITALS: O2SAT 94
--- NOTE | 2024-10-06 12:31 | ECHO ---
HEIGHT: 6 ft 3 in WEIGHT: 325 lb 0 oz DATE OF STUDY: 10/05/[address]: David Venegas MD 2-DIMENSIONAL: YES M.MODE: YES DOPPLER: YES COLOR FLOW: YES TDS: YES PORTABLE: YES DEFINITY: BUBBLE STUDY: DIAGNOSIS: PULMONARY HYPERTENSION, HEART FAILURE CARDIAC HISTORY: CATHERIZATION: YES SURGERY: YES PROSTHETIC VALVE: NO PACEMAKER: NO MEASUREMENTS (cm) DIASTOLIC (NORMALS) SYSTOLIC (NORMALS) IVSd 1.4 (0.6-1.2) LA Diam 3.1 (1.9-4.0) LVEF 60-65% LVIDd 4.1 (3.5-5.7) LVIDs 2.8 (2.0-3.5) %FS 31% LVPWd 1.4 (0.6-1.2) Ao Diam 3.3 (2.0-3.7) 2 DIMENSIONAL ASSESSMENT: RIGHT ATRIUM: NORMAL LEFT ATRIUM: NORMAL RIGHT VENTRICLE: NORMAL LEFT VENTRICLE: NORMAL TRICUSPID VALVE: TRACE TRICUSPID REGURGITATION MITRAL VALVE: NORMAL PULMONIC VALVE: NORMAL AORTIC VALVE: NORMAL PERICARDIAL EFFUSION: NONE AORTIC ROOT: NORMAL LEFT VENTRICULAR WALL MOTION: NORMAL DOPPLER/COLOR FLOW: GRADE I DIASTOLIC DYSFUNCTION COMMENTS: 1. NORMAL LEFT VENTRICULAR SYSTOLIC FUNCTION, EJECTION FRACTION 60-65%, NORMAL WALL MOTION 2. GRADE I DIASTOLIC DYSFUNCTION TECHNOLOGIST: TYLER OLIVER/ JIMMY COLÓN
[2024-10-06 12:33] VITALS: BP 135/87; TEMP 97.8
--- NOTE | 2024-10-06 12:48 | P.DS ---
Admission Date: 10/04/24 Discharge Date: 10/06/24 Disposition: DC HOME/HOME HEALTH CARE Discharge Condition: GOOD Reason for Admission: Bibasilar opacities and hypoxemia Hospital Course: Discharge diagnosis: 1. acute hypoxic respiratory failure; sec to pneumonia , hypoxia resolved - Continue antibiotics, pulmonary is following, o2 off -echo result normal EF with ejection fraction 60 to 65%, grade 1 diastolic dysfunction - Leukocytosis secondary to steroids, better. 2. history of obstructive sleep apnea not being treated with a CPAP. 2. Morbid obesity; Patient would benefit from weight loss 4. History of low back injury; patient has a history of lumbar fusion. 5. History of brain aneurysm; patient's had a coiling procedure, f/u with PCP Plan discussed with patient and nursing staff. Discussed with the case dang mchugh team. DC home today. Hospital course: 69-year-old patient admitted with acute hypoxic respiratory failure secondary to pneumonia, he was started on antibiotics and supplemental oxygen, pulmonary was consulted, his hypoxia is improving, pulmonary recommended to discharge him on oral antibiotics, when I see the patient today, he is doing well without any acute problems and feels ready to go home, otherwise no other acute issues going on so I am planning to discharge him to go home on oral antibiotics. Subjective: No chest pain. shortness of breath improved. No nausea or vomiting. No abdominal pain. No obvious bleeding. Looks comfortable in the bed. Objective: General appearance: Alert and comfortable CVS: Normal S1 and S2 Lungs: Clear to auscultation bilaterally Abdomen: Soft, bowel sounds present, no tenderness Extremities: No lower extremity edema Vital Signs/Physical Exam: Temp Pulse Resp BP Pulse Ox 97.8 F 18 L 78 H 135/87 94 10/06/24 12:00 10/06/24 12:00 10/06/24 12:00 10/06/24 12:00 10/06/24 12:00 Laboratory Data at Discharge: WBC 8.90 thou/uL (4.3-10.9) 10/06/24 05:30 Hgb 14.3 g/dL (13.6-17.9) 10/06/24 05:30 Hct 41.2 % (39.6-49.0) 10/06/24 05:30 Plt Count 251 thou/uL (152-406) 10/06/24 05:30 PT 13.8 SECONDS (10-13.0) H 10/04/24 07:14 INR 1.22 10/04/24 07:14 Sodium 140 mEq/L (136-145) 10/06/24 05:30 Potassium 4.2 mEq/L (3.5-5.1) 10/06/24 05:30 BUN 21 mg/dL (7-18) H 10/06/24 05:30 Creatinine 1.12 mg/dL (0.70-1.30) 10/06/24 05:30 Glucose 118 mg/dL (74-106) H 10/06/24 05:30 Phosphorus 4.2 mg/dL (2.5-4.9) 10/06/24 05:30 Magnesium 2.1 mg/dL (1.6-2.4) 10/04/24 07:14 Total Bilirubin 0.6 mg/dL (0.2-1.0) 10/04/24 07:14 AST 16 U/L (15-37) 10/04/24 07:14 ALT 37 U/L (16-61) 10/04/24 07:14 Alkaline Phosphatase 91 U/L (45-117) 10/04/24 07:14 Triglycerides 77 mg/dL (<150) 10/04/24 07:14 Cholesterol 112 mg/dL (<200) 10/04/24 07:14 HDL Cholesterol 29 mg/dL (40-60) L 10/04/24 07:14 Cholesterol/HDL Ratio 3.86 10/04/24 07:14 Home Medications: Baclofen [Lioresal*] 10 mg PO BID 06/22/23 Fluticasone Propionate [Flovent Diskus] 50 spray IH DAILY 06/22/23 Gabapentin [Neurontin*] 400 mg PO BID 06/22/23 Loratadine [Claritin*] 10 mg PO DAILY 06/22/23 Metformin ER [Glucophage ER*] 500 mg PO BID 06/22/23 Montelukast [Singulair*] 10 mg PO BEDTIME 06/22/23 Venlafaxine HCl [Effexor Xr] 37.5 mg PO DAILY 07/27/24 Losartan Potassium [Cozaar*] 50 mg PO DAILY #30 tab 07/29/24 Metoprolol Tartrate [Lopressor*] 25 mg PO BID #60 tab 07/29/24 methocarbamoL [Robaxin*] 500 mg PO TID PRN #30 tab 07/29/24 Amox/Clavulanate [Augmentin 875-125 Tab] 875 mg PO BID #6 tab 10/06/24 New Medications: Amox/Clavulanate [Augmentin 875-125 Tab] 875 mg PO BID #6 tab Diet: ADA Activity: Ad jose Followup: Vicky Leiva MD [Primary Care Provider] - 1 Week (f/u with PCP in 5-7 days with CBC and CMP) Donny Hubbard MD [ACTIVE - CAN ADMIT] - 1 Week (f/u in 1 week) Time spent managing pt's care (in minutes): 32
== END 2024-10-06 14:26 | disposition home or self-care (01) | DRG 193 ==
LOC: ER 20:03 → 4TH 10-04 01:33
PROVIDERS: ADMIT Hospitalist; ATTEND Hospitalist
DX: J18.9 Pneumonia, unspecified organism (principal); J96.01 Acute respiratory failure with hypoxia; Z68.42 Body mass index [BMI] 45.0-49.9, adult; E66.01 Morbid (severe) obesity due to excess calories; I10 Essential (primary) hypertension; I67.1 Cerebral aneurysm, nonruptured; E78.5 Hyperlipidemia, unspecified; E88.810 Metabolic syndrome; G47.33 Obstructive sleep apnea (adult) (pediatric); Z79.84 Long term (current) use of oral hypoglycemic drugs; Z90.49 Acquired absence of other specified parts of digestive tract; Z79.899 Other long term (current) drug therapy; Z87.891 Personal history of nicotine dependence
CPT/HCPCS: 36415; 71045; 71046; 80048; 80053; 80061; 80076; 82947; 83605; 83735; 83880; 84100; 84145; 84439; 84443; 84484; 85025; 85379; 85610; 93005; 93306; 94760; 96365; 96375; 97116; 97161; 99285; J0360; J0696; J1200; J1650; J1938; J2765; J2919; J7050